=== PATIENT | female | born 1955 | race Caucasian/White ===

== ENCOUNTER 2017-08-23 18:07 | Emergency (ER) | payer MEDICARE ==
[~2017-08-23] VITALS: Ht 162.6 cm; Wt 44.5 kg
[~2017-08-23 18:07] MED LIST: ACIDOPHILUS1 EAC1 PO; ASPIR 8181 MG PO; ASPIRIN81 MG PO; BACTRIM DS TAB1 EACH PO; CALCIUM600 MG PO; CARVEDILOL12.5 MG PO; CARVEDILOL3.125 MG PO; CELCEPT PO; CELEXA40 MG PO; CELLCEPT500 MG PO; CIPRO250 MG PO; CLINDAMYCIN HC150 MG PO; CLONIDINE HCL0.1 MG PO; CYANOCOBAL1000 MCG/M IM; FERROUS SULFAT325 MG PO; FLAGYL500 MG PO; FOLIC ACID1 MG PO; FOSAMAX70 MG PO; HEPARIN SO5000 UNIT/ SC; HUMALOG100 UNIT/3 SQ; HUMALOG100 UNITS/ SC; HYDRALAZINE HCL10 MG PO; IRON325 M1 PO; LANTUS 3ML100 UNITS/ SQ; LANTUS100 UNIT/1 SC; LEVEMIR100 UNIT/1 SC; LEXAPRO10 MG PO; LIPITOR20 MG PO; LIPITOR80 MG PO; MAGNESIUM OXID400 MG PO; MYCOPHENOLATE250 MG PO; NEXIUM40 MG PO; NIASPAN750 MG PO; NORVASC5 MG PO; NOVOLIN 70100 UNITS/ SC; NOVOLOG100 UNIT/1; OMEGA 3 1,0001 EACH PO; PANTOPRAZOLE SO40 MG PO; PREDNISONE2.5 MG PO; PROGRAF0.5 MG PO; PROGRAF1 MG PO; TACROLIMUS1 MG PO; TRAMADOL-ACETAMI1 EA PO; TYLENOL325 MG PO; VITAMIN D1000 UNI1 PO; VITAMIN D250000 UNIT PO; VITAMIN E200 UNI2 PO; VITAMIN E400 UNI1 PO; WARFARIN SODIUM3 MG PO; ZOFRAN ODT4 MG PO; ZYRTEC10 MG PO
[2017-08-23 18:55] LABS: BASOPHILS # (AUTO) 0.1 (0.0-0.1); BASOPHILS % 0.8 % (0.0-1.0); EOSINOPHILS # (AUTO) 0.1 (0.0-0.4); EOSINOPHILS % 1.4 % (0.0-6.0); HEMATOCRIT 29.1 % (34.2-44.1); LYMPHOCYTES % 28.7 % (18.0-39.1); MEAN CORPUSCULAR HEMOGLOBIN 30.8 pg (28-32); MEAN CORPUSCULAR HGB CONC 30.9 g/dL (31-35); MEAN CORPUSCULAR VOLUME 99.7 fL (81-99); MONOCYTES # (AUTO) 0.5 (0.2-0.8); MONOCYTES % 7.6 % (4.4-11.3); NEUTROPHILS # (AUTO) 4.3 (2.1-6.9); NEUTROPHILS % 60.8 % (38.7-80.0); PLATELET COUNT 297 x10e3/uL (140-360); RED BLOOD COUNT 2.92 x10e6/uL (3.6-5.1); RED CELL DISTRIBUTION WIDTH 14.8 % (11.7-14.4)
[2017-08-23 19:02] LABS: INR 0.87; PROTHROMBIN TIME 12.3 seconds (11.9-14.5)
[2017-08-23 19:03] LABS: PARTIAL THROMBOPLASTIN TIME 28.6 seconds (23.8-35.5)
[2017-08-23 19:13] LABS: ALBUMIN 3.2 g/dL (3.5-5.0); ALBUMIN/GLOBULIN RATIO 0.9 (0.8-2.0); ANION GAP 14.4 mmol/L (8-16); CALCIUM 9.1 mg/dL (8.4-10.2); CREATININE, SERUM 1.88 mg/dL (0.57-1.11); POTASSIUM 4.4 mmol/L (3.5-5.1)
[2017-08-23 19:21] LABS: CREATINE KINASE MB 1.1 ng/mL (0.00-5.00)
--- NOTE | 2017-08-23 19:51 | Diagnostic Imaging Report ---
EXAMINATION: CHEST SINGLE (PORTABLE) INDICATION: Blood pressure. COMPARISON: 01/10/2017. FINDINGS: TUBES and LINES: None. LUNGS: Lungs are hypoinflated. Mild diffuse coarsening of the pulmonary interstitium. In the left lung base suggestive of subsegmental atelectasis. There is no evidence of pneumonia or pulmonary edema. PLEURA: Mild blunting of the bilateral lateral costophrenic sulcus may represent pleural scarring versus trace pleural effusions. No pneumothorax. HEART AND MEDIASTINUM: The cardiomediastinal silhouette is remarkable for postsurgical changes related to CABG again observed. BONES AND SOFT TISSUES: No acute osseous lesion. UPPER ABDOMEN: No free air under the diaphragm. There are cholecystectomy clips. IMPRESSION: Left basilar subsegmental atelectasis. Signed by: Dr. Mary Paniagua M.D. on 08/23/2017 7:48 PM
--- NOTE | 2017-08-23 19:58 | Diagnostic Imaging Report ---
Examination: CT head without contrast Clinical Indication: Headaches; hypertension. Technique: Transaxial noncontrast images from the skull base through the vertex were obtained. Sagittal and coronal reformatted images were done. Comparison: Head CT dated 10/11/2016. Findings: Scalp: No new acute abnormalities. Interval resolution of acute right parietal scalp laceration and hematoma. Bones: Intact. No fractures. No blastic or lytic lesions. Brain sulci: Mild volume loss for patient's age. Ventricles: No hydrocephalus. Extra-axial space: No abnormalities. Parenchyma: There are mild confluent areas of low-attenuation within subcortical and periventricular white matter, nonspecific, but could represent microvascular ischemic disease. Again demonstrated is a chronic lacunar infarct of the bilateral caudate nuclei and bilateral cerebellar hemispheres. No masses, hemorrhage, or acute cortical based vascular insults. Suprasellar region: No abnormalities. Craniocervical junction: The foramen magnum is patent. No Chiari one malformation. Incidental findings: Atherosclerotic calcification of the cavernous and supraclinoid internal carotid and V4 segments of the bilateral vertebral arteries. Impression: 1. No new acute intracranial abnormality. 2. Interval resolution of acute right parietal scalp laceration and hematoma when compared to prior head CT dated 10/11/2016. 3. Unchanged mild chronic microvascular ischemic change and volume loss. 4. Unchanged chronic lacunar infarcts, as above. Signed by: Dr. Galina King M.D. on 08/23/2017 7:54 PM
[2017-08-23] MEDS ORDERED: LABETALOL HCL 5 MG/ML 20ML VIAL IV STA (20:31)
[2017-08-23] MEDS ORDERED: KETOROLAC TROMETHAMINE 30 MG/ML VIAL IV STA (20:39)
[2017-08-23 22:50] VITALS: BP 148/99
== END 2017-08-23 23:11 | disposition home or self-care (01) ==
LOC: ER 18:07
DX: G44.209 Tension-type headache, unspecified, not intractable (principal); I13.2 Hypertensive heart and chronic kidney disease with heart failure and with stage 5 chronic kidney disease, or end stage renal disease; I50.9 Heart failure, unspecified; N18.6 End stage renal disease; Z99.2 Dependence on renal dialysis; Z94.1 Heart transplant status
CPT/HCPCS: 36415; 70450; 71045; 80053; 82550; 82553; 84484; 85025; 85610; 85730; 93005; 99284; J1885; J3490

== ENCOUNTER 2017-09-13 15:11 | Emergency (ER) | payer BC, MEDICARE ==
[~2017-09-13] VITALS: Ht 162.6 cm; Wt 44.5 kg
--- OUTSIDE RECORDS SUMMARY | 2017-09-13 15:15 | XMS REPORT | Clinical Summary ---
Author Author DANIEL Valor [facility] [employer] [facility] Organization [facility] Address Unknown Phone Unavailable Care Team Providers Care Rider Ticket Worker Name Role Phone PCP Unavailable Allergies Active Allergy Reactions Severity Noted Date Comments Codeine Nausea And Vomiting, High 07/27/2012 unknown Shortness Of Breath Furosemide Other (See Comments) High 10/20/2012 Fluid in ear unknown Penicillins Rash Low 07/28/2012 Sirolimus Other (See Comments) Low 07/28/2012 Muscle aches Current Medications Prescription Sig. Disp. Refills Start End Date Status Date folic acid (FOLVITE) 1 MG Take 1 mg by mouth daily. Active tablet aspirin 81 MG EC tablet Take 81 mg by mouth Active nightly. ferrous sulfate 325 (65 Take 325 mg by mouth Active FE) MG tablet daily with breakfast. magnesium oxide (MAG-OX) Take 400 mg by mouth 2 Active 400 mg tablet (two) times daily. traMADol-acetaminophen Take 1 tablet by mouth Active (ULTRACET) 37.5-325 mg nightly. per tablet citalopram (CELEXA) 40 MG Take 40 mg by mouth Active tablet daily. vitamin E 800 UNIT Take 800 Units by mouth Active capsule daily. atorvastatin (LIPITOR) 80 Take 80 mg by mouth Active MG tablet daily. cetirizine (ZYRTEC) 10 MG Take 10 mg by mouth Active tablet daily. mycophenolate (CELLCEPT) Take 1 tablet (500 mg 60 tablet 11 12/04/19 12/04/19 Active 500 mg tablet total) by mouth 2 (two) 17 18 times daily. epoetin tomasa Inject 2 mLs (6,000 Units 1 mL 0 01/22/20 Active (EPOGEN,PROCRIT) 3,000 total) subcutaneously 3 17 unit/mL (three) times a week at injectionIndications: bedtime. Anemia, esrd tacrolimus (PROGRAF) 0.5 Take 1 capsule (0.5 mg 0 01/22/20 01/22/20 Active MG capsule total) by mouth daily. 17 18 ergocalciferol Take 1 capsule (50,000 4 capsule 0 01/22/20 01/22/20 Active (ERGOCALCIFEROL) 50,000 Units total) by mouth 17 18 unit capsule every 7 days. cloNIDine HCl (CATAPRES) Take 0.1 mg by mouth 2 Active 0.1 MG tablet (two) times daily. omeprazole (PRILOSEC) 40 Take 40 mg by mouth Active MG capsule daily. carvedilol (COREG) 12.5 TAKE ONE TABLET BY MOUTH 60 tablet Active MG tablet TWICE A DAY WITH 17 BREAKFAST AND DINNER calcium carbonate-vitamin Take 2 tablets by mouth Active D3 (CALCIUM-VITAMIN D) daily. 500 mg(1,250mg) -200 unit per tablet esomeprazole (NEXIUM) 40 Take 40 mg by mouth every 05/19/20 Discontin MG capsule morning before breakfast. 17 ued ergocalciferol (VITAMIN Take 50,000 Units by 01/22/20 Discontin D2) 50,000 unit capsule mouth as directed. Twice 17 ued monthly alendronate (FOSAMAX) 70 Take 70 mg by mouth every 10/26/19 Discontin MG tablet 7 days. Take in the 17 ued morning with a full glass of water, on an empty stomach, and do not take anything else by mouth or lie down for the next 30 min. cyanocobalamin (VITAMIN Inject 1,000 mcg 01/22/20 Discontin B-12) 1,000 mcg/mL intramuscularly every 14 17 ued injection (fourteen) days. calcium citrate 1,000 mg Take 1 tablet by mouth 10/26/19 Discontin Tab daily. 17 ued insulin lispro (HUMALOG) Inject subcutaneously 3 01/22/20 Discontin 100 unit/mL injection (three) times daily 17 ued before meals. Per sliding scale mycophenolate (CELLCEPT) Take 1 tablet (500 mg 60 tablet 11 11/05/19 11/05/19 500 mg tabletIndications: total) by mouth 2 (two) 16 17 Status post heart times daily. transplantation (HCC), Transplant follow-up insulin detemir (LEVEMIR) Inject 9 Units 10/26/19 Discontin 100 unit/mL injection subcutaneously nightly. 17 ued amLODIPine (NORVASC) 5 MG Take 5 mg by mouth daily. 10/26/19 Discontin tablet 17 ued carvedilol (COREG) 12.5 Take 2 tablets (25 mg 60 tablet 5 06/30/20 01/22/20 Discontin MG tablet total) by mouth 2 (two) 16 17 ued times daily with breakfast and dinner. tacrolimus (PROGRAF) 0.5 Take 2 capsules (1 mg 120 capsule 6 06/30/20 12/04/19 Discontin MG capsule total) by mouth 2 (two) 16 17 ued times daily. senna-docusate (SENOKOT Take 1 tablet by mouth 2 60 tablet 0 06/30/20 05/19/20 Discontin S) 8.6-50 mg per tablet (two) times daily. 16 17 ued carvedilol (COREG) 12.5 TAKE ONE TABLET BY MOUTH 60 tablet 4 07/20/20 01/22/20 Discontin MG tablet TWICE A DAY WITH 16 17 ued BREAKFAST AND DINNER cloNIDine HCl (CATAPRES) Take 0.1 mg by mouth 2 01/22/20 Discontin 0.1 MG tablet (two) times daily. 17 ued insulin glargine (LANTUS) Inject subcutaneously 01/22/20 Discontin 100 unit/mL injection nightly Use as directed . 17 ued tacrolimus (PROGRAF) 0.5 Take 2 capsules (1 mg 120 capsule 11 01/22/20 Discontin MG capsule total) by mouth 2 (two) 17 17 ued times daily. aspirin 81 MG EC tablet Take 81 mg by mouth 09/24/19 01/22/20 Discontin daily. 11 17 ued pregabalin (LYRICA) 100 Take 100 mg by mouth 2 01/22/20 Discontin MG capsule (two) times daily. 17 ued atorvastatin (LIPITOR) 80 Take 80 mg by mouth 10/23/19 01/22/20 Discontin MG tablet daily. 14 17 ued carvedilol (COREG) 12.5 Take 25 mg by mouth 2 06/30/20 01/22/20 Discontin MG tablet (two) times daily. 16 17 ued citalopram (CELEXA) 40 MG Take 40 mg by mouth 09/24/19 01/22/20 Discontin tablet daily. 11 17 ued esomeprazole (NEXIUM) 40 Take 40 mg by mouth 01/22/20 Discontin MG capsule daily. 17 ued mycophenolate (CELLCEPT) Take 500 mg by mouth 2 09/24/19 01/22/20 Discontin 500 mg tablet (two) times daily. 11 17 ued tacrolimus (PROGRAF) 1 MG Take 1 mg by mouth as 09/24/19 01/22/20 Discontin capsule directed Take 2 capsules 11 17 ued by mouth each morning and 1 tablet by mouth each evening.. carvedilol (COREG) 25 MG Take 1 tablet (25 mg 0 01/22/20 05/19/20 Discontin tablet total) by mouth 2 (two) 17 17 ued times daily with breakfast and dinner. HYDROmorphone (DILAUDID) Inject 0.2 mLs (0.2 mg 1 mL 0 01/22/20 Discontin injection 1 mg/mL total) intravenously 17 17 ued every 15 (fifteen) minutes as needed. Max Daily Amount: 19.2 mg amLODIPine (NORVASC) 5 MG Take 1 tablet (5 mg 0 01/22/20 05/19/20 Discontin tablet total) by mouth daily. 17 17 ued tacrolimus (PROGRAF) 0.5 Take 1 capsule (0.5 mg 0 01/22/20 01/23/20 Discontin MG capsule total) by mouth every 17 17 ued evening. insulin lispro (HUMALOG) Inject 0-4 Units 10 mL 0 01/22/20 07/27/19 Discontin 100 unit/mL injection subcutaneously every 17 18 ued night as needed (High blood sugar). insulin lispro (HUMALOG) Inject 0-8 Units 10 mL 0 01/22/20 05/19/20 Discontin 100 unit/mL injection subcutaneously as needed 17 17 ued (High blood sugar). docusate sodium (COLACE) Take 1 capsule (100 mg 10 capsule 0 01/22/20 02/01/20 100 MG capsule total) by mouth 2 (two) 17 17 times daily for 10 days. tacrolimus (PROGRAF) 1 MG Take 1 capsule (1 mg 0 01/23/20 05/19/20 Discontin capsule total) by mouth every 17 17 ued evening. cephalexin (KEFLEX) 250 Take 1 capsule (250 mg 28 capsule 0 02/05/20 02/12/20 MG capsule total) by mouth 4 (four) 17 17 times daily for 7 days. insulin glargine (LANTUS) Inject subcutaneously 05/19/20 Discontin 100 unit/mL injection nightly Per sliding scale 17 ued . Lactobacillus Take 1 tablet by mouth 3 05/19/20 Discontin acidoph-L.bulgar (three) times daily. 17 ued (FLORANEX) 1 million cell Tab per tablet metroNIDAZOLE (FLAGYL) Take 500 mg by mouth 3 05/19/20 Discontin 500 MG tablet (three) times daily. 17 ued vancomycin (VANCOCIN) Inject 1 g intravenously 05/19/20 Discontin IVPB 1 g in dextrose 5% 3 (three) times a week. 17 ued (D5W) 200 mL darbepoetin Inject 60 mcg 05/19/20 Discontin tomasa-polysorbate subcutaneously once a 17 ued (ARANESP) 60 mcg/0.3 mL week. Syrg injection carvedilol (COREG) 25 MG Take 0.5 tablets (12.5 mg 05/19/20 07/27/19 Discontin tablet total) by mouth 2 (two) 17 18 ued times daily with breakfast and dinner. Active Problems Problem Noted Date Hepatitis C antibody test positive 08/24/2017 Last Assessment & Plan: Noted to be positive for anti-HCV from blood tests in 2005, and 2018. However HCV RNA was undetectable in 01/08. She is on HD since 01/08. It is possible that she has been exposed to Hepatitis C, and cleared the virus. AST/ALT normal, slightly elevated Alk Phos (207 on 05/10), but patient is asymptomatic, and no evidence of chronic liver disease. Platelet 223, and CT abdomen with contrast showed normal liver. We will repeat HCV RNA. We will check GGT, and US abdomen. If tests are normal, she would be cleared from liver point of view for renal transplant. Screening for endocrine/metabolic/immunity disorders 08/24/2017 Last Assessment & Plan: She needs full series of vaccination for Hepatitis B, in addition to age appropriate vaccinations (not liver virus vaccination due to immunosuppression). We will check antibody against Hepatitis A. Controlled type 2 diabetes mellitus with complication, without long-term 09/2017 current use of insulin (HCC) H/O stroke without residual deficits 07/27/2017 Anemia of renal disease 07/27/2017 Secondary hyperparathyroidism of renal origin (HCC) 07/27/2017 JOHN on CPAP 07/27/2017 Left arm swelling 02/14/2017 Overview: Attributed to PTFE AV fistula/graft in left arm. Hemodialysis access, AV graft ([facility]) 02/14/2017 Overview: PFTE graft by Dr Quinn 01/18/2017 Altered mental status, unspecified 01/14/2017 Chronic renal insufficiency 01/13/2017 Hyperlipidemia 01/13/2017 IDDM (insulin dependent diabetes mellitus) ([facility]) 01/13/2017 Macrocytic anemia 01/13/2017 Hypertensive urgency 01/11/2017 Hypertensive emergency 01/10/2017 DILIP (acute kidney injury) ([facility]) 01/10/2017 Chronic kidney disease, stage IV (severe) ([facility]) 06/28/2016 Uncontrolled type 2 diabetes mellitus with complication, with long-term 11/2015 current use of insulin ([facility]) Benign hypertension with chronic kidney disease, stage IV ([facility]) 06/28/2016 Normocytic anemia 06/28/2016 Dyslipidemia 06/28/2016 Ankle fracture 06/27/2016 Closed fracture of greater trochanter of right femur ([facility]) 12/18/2015 Overview: UPDATED BY ICD10 SNOMED/IMO UPDATES Fever, unknown origin 07/03/2013 Overview: Admitted 06/06 with fever. All cultures negative. Lumbar puncture negative. Subsequently treated by PCP for presumed sinus infection with IM Levaquin with improvement Headache 07/03/2013 Overview: Severe headache associated with fever 06/06. Lumbar puncture negative. MRI/ MRA negative. CT neck negative. Neurology evaluation - etiology not identified Chronic kidney disease (CKD) 07/03/2013 Edema 02/03/2013 Acute rejection of heart transplant ([facility]) 01/23/2013 Overview: 05/03 RV BX ISHLT II R and C4D+; Treated with plasmaphoresis, IVIG, Rituxand corticosteroid pulse. 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 Circumflex and RCA. GERD (gastroesophageal reflux disease) 01/18/2013 Overview: On Nexium. Osteoporosis 01/18/2013 Overview: On Fosamax. Immunosuppression ([facility]) 10/18/2012 Overview: Prograf, Cellcept, Prednisone. IDDM (insulin dependent diabetes mellitus) ([facility]) 07/28/2012 Depression 07/28/2012 Hyperlipidemia 07/28/2012 Hypertension 07/28/2012 Peripheral vascular disease (HCC) 07/28/2012 Overview: 01/18/12 Post left common femoral artery endarterectomy. JHON (obstructive sleep apnea) 07/28/2012 Anemia 07/28/2012 Status post heart transplantation (HCC) 07/27/2012 Overview: OHT: 03/28/2010. 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 DSE: Mild anteroseptal hypokinesis with Dobutamine infusion, but interpreted as "negative echocardiographic stress test" ICD9 DX Milieu Coordinator L ast Assessment & Plan: Relevant Hx: Course: Daily Update: Today's Plan: ESRD (end stage renal disease) (HCC) Last Assessment & Plan: On HD since 01/08. Likely related to prograf post-OHT. Being listed for renal transplant. Encounters Date Type Specialty Care Team Description 09/12/2017 Committee Transplant Ellen Robins Review 08/24/2017 Office Visit Hepatology Germaine Crowe MD Hepatitis C antibody test positive;Chronic kidney disease, stage IV (severe) (HCC);Uncontrolled type 2 diabetes mellitus with complication, with long-term current use of insulin (HCC);Benign hypertension with chronic kidney disease, stage IV (HCC);DILIP (acute kidney injury) (HCC);Screening for endocrine/metabolic/immun ity disorders;ESRD (end stage renal disease) (HCC) 08/15/2017 [facility] Lazarus Sauceda Status post heart Encounter MD Gray transplantation (HCC);Chronic kidney disease, stage IV (severe) (HCC);Uncontrolled type 2 diabetes mellitus with complication, with long-term current use of insulin (HCC);Benign hypertension with chronic kidney disease, stage IV (HCC);IDDM (insulin dependent diabetes mellitus) (HCC);ESRD (end stage renal disease) (HCC);Hypertension secondary to other renal disorders 08/15/2017 [facility] Radiology Lazarus Sauceda Status post heart Encounter MD Gray transplantation (HCC);Chronic kidney disease, stage IV (severe) (HCC);Uncontrolled type 2 diabetes mellitus with complication, with long-term current use of insulin (HCC);Benign hypertension with chronic kidney disease, stage IV (HCC);IDDM (insulin dependent diabetes mellitus) (HCC);ESRD (end stage renal disease) (HCC);Hypertension secondary to other renal disorders 08/15/2017 Orders Only Lazarus Pepe Status post heart MD Gray transplantation ([facility]);Chronic kidney disease, stage IV (severe) ([facility]);Uncontrolled type 2 diabetes mellitus with complication, with long-term current use of insulin (HCC);Benign hypertension with chronic kidney disease, stage IV (HCC);IDDM (insulin dependent diabetes mellitus) (HCC);ESRD (end stage renal disease) (HCC);Hypertension secondary to other renal disorders 08/12/2017 Outside Orders Lazarus Sauceda MD 08/04/2017 Telephone Transplant Ellen Robins Appointment 08/02/2017 Telephone Transplant Ellen Robins Appointment 07/27/2017 Evaluation Transplant Lazarus Sauceda Pre-transplant evaluation MD Gray for end stage renal disease (Primary Dx);ESRD (end stage renal disease) ([facility]);Status post heart transplantation ([facility]);Controlled type 2 diabetes mellitus with complication, without long-term current use of insulin ([facility]);Essential hypertension;H/O stroke without residual deficits;Anemia of renal disease;Secondary hyperparathyroidism of renal origin ([facility]);JOHN on CPAP;Immunosuppression ([facility]) 07/27/2017 Evaluation Transplant Lazarus Sauceda MD 07/27/2017 Evaluation Transplant Lazarus Sauceda MD 07/27/2017 Orders Only Lazarus Pepe Status post heart MD Gray transplantation ([facility]);Chronic kidney disease, stage IV (severe) ([facility]);Uncontrolled type 2 diabetes mellitus with complication, with long-term current use of insulin ([facility]);Benign hypertension with chronic kidney disease, stage IV ([facility]);IDDM (insulin dependent diabetes mellitus) ([facility]);ESRD (end stage renal disease) ([facility]);Hypertension secondary to other renal disorders 07/27/2017 Office Visit Transplant Lazarus Sauceda Status post heart MD Gray transplantation ([facility]) Juan Umana RN (Primary Dx);Chronic kidney disease, stage IV (severe) ([facility]);Uncontrolled type 2 diabetes mellitus with complication, with long-term current use of insulin ([facility]);Benign hypertension with chronic kidney disease, stage IV (HCC);IDDM (insulin dependent diabetes mellitus) ([facility]);ESRD (end stage renal disease) (HCC);Hypertension secondary to other renal disorders 06/20/2017 Telephone Transplant Jimenez Hugh Kidney Transplant Pre-evaluation 06/20/2017 Abstract Transplant Jimenez, Hugh 06/20/2017 Abstract Transplant Jimenez, Hugh 06/15/2017 Abstract Transplant Jimenez, Hugh 06/13/2017 Abstract Transplant Jimenez, Hugh 06/06/2017 Refill Transplant Vianey Mirza, YULIANA 05/20/2017 Telephone Transplant Breana Day RN Heart Transplant Follow-up 05/19/2017 Follow-Up Transplant Kristine Brown, Weight loss ( Primary MD Dx);Status post heart transplantation (HCC);Transplant follow-up 03/23/2017 Telephone Transplant Ladonna Hirsch RN Follow-up 03/21/2017 Telephone Transplant Yanira Moraes NP cancellation due to Kash 02/25/2017 Telephone Transplant Ladonna Hirsch, RN Follow-up 02/17/2017 Office Visit Cardiology Ailyn Quinn Chronic kidney disease, stage IV (severe) (HCC) (Primary Dx) 02/14/2017 [facility] Cardiology System, Provider Not In Transplant Encounter Kristine Brown, follow-up;Status post MD heart transplantation (HCC) 02/14/2017 Follow-Up Transplant Nan Novak MD Status post heart transplantation ([facility]) (Primary Dx);Transplant follow-up;Dyslipidemia;ID DM (insulin dependent diabetes mellitus) ([facility]);Left arm swelling 02/14/2017 Orders Only Cardiology Kristine Brown, Transplant MD follow-up;Status post heart transplantation ([facility]);Dyslipidemia;IDDM (insulin dependent diabetes mellitus) ([facility]) 02/14/2017 Telephone Transplant Ladonna Hirsch, RN Follow-up 02/14/2017 Orders Only Transplant Ladonna Hirsch RN Status post heart transplantation (HCC) (Primary Dx);Transplant follow-up 02/11/2017 Orders Only Transplant Hayder Villarreal, Status post heart RN transplantation ([facility]) (Primary Dx);Aftercare following organ transplant 02/07/2017 Abstract Transplant Stephen Emmanuel 02/07/2017 Telephone Transplant Stephen Emmanuel Kidney Transplant Pre-evaluation 02/04/2017 Office Visit Cardiology Ailyn Quinn, Chronic kidney diseaseMD stage IV (severe) (HCC) (Primary Dx) 01/18/2017 Anesthesia Justice Brewer, Event AA 01/18/2017 Procedure Pass 01/18/2017 Surgery Ailyn Quinn, CREATION,A-V FISTULA 01/14/2017 Procedure Pass 01/12/2017 Abstract Transplant Ayah Lepe 01/10/2017 Hospital Transplant Jemal Chavez MD DILIP (acute kidney injury) - Encounter Damon Ty, (HCC) (Primary 01/22/2017 MD Dx);Hypertensive Geraldo Knight MD urgency;Heart transplant, orthotopic, status (HCC);Immunosuppression (HCC);[id number] kidney injury (HCC);Benign hypertension with chronic kidney disease, stage IV (HCC);Dyslipidemia;Hypert ensive emergency;Uncontrolled type 2 diabetes mellitus with complication, with long-term current use of insulin (HCC);Altered mental status, unspecified;Transient alteration of awareness 12/13/2016 Telephone Transplant Ayah Lepe Appointment 12/10/2016 Orders Only Transplant Ladonna Hirsch RN Status post heart transplantation (HCC) (Primary Dx);Transplant follow-up 12/03/2016 Orders Only Transplant Ladonna Hirsch RN 11/30/2016 [facility] Carlie Bonilla MD Encounter 11/30/2016 Anesthesia Walker Mansfield MD Event 11/30/2016 Surgery Carlie Bonilla MD EXTRACTION,CATARACT W/IOL 10/26/2016 [facility] Carlie Bonilla MD Encounter 10/26/2016 Anesthesia Gretchen Elizabeth Event MD Hayder 10/26/2016 [facility] Carlie Bonilla MD EXTRACTION,CATARACT W/IOL 10/18/2016 [facility] Cardiology System, Provider Not In Canceled ( Patient) Encounter Kristine Brown MD after 09/12/2016 Immunizations Name Dates Previously Given Next Due Influenza High Dose 06/30/2016 Preservative Free IM Influenza TIV (IM) 04/24/2017 Family History Medical History Relation Name Comments ALS Daughter Heart attack Father Heart attack Mother Relation Name Status Comments Daughter Father Mother Social History Tobacco Use Types Packs/Day Years Used Date Former Smoker Quit: 11/11/1999 Smokeless Tobacco: Never Used Alcohol Use Drinks/Week oz/Week Comments No Sex Assigned at Date Recorded Not on file Last Filed Vital Signs Vital Sign Reading Time Taken Blood Pressure 123/77 08/24/2017 11:11 AM INTERLOCKING AND SIGNAL MECHANIC Pulse 88 08/24/2017 11:11 AM INTERLOCKING AND SIGNAL MECHANIC Temperature 36.4 C (97.6 F) 08/24/2017 11:11 AM INTERLOCKING AND SIGNAL MECHANIC Respiratory Rate 18 08/24/2017 11:11 AM INTERLOCKING AND SIGNAL MECHANIC Oxygen Saturation 96% 08/24/2017 11:11 AM INTERLOCKING AND SIGNAL MECHANIC Inhaled Oxygen - - Concentration Weight 44 kg (97 lb) 08/24/2017 11:11 AM INTERLOCKING AND SIGNAL MECHANIC Height 157.5 cm (5' 2") 08/24/2017 11:11 AM INTERLOCKING AND SIGNAL MECHANIC Body Mass Index 17.74 08/24/2017 11:11 AM INTERLOCKING AND SIGNAL MECHANIC Plan of Treatment Date Type Specialty Care Team Description 10/25/2017 Follow-Up Transplant Kristine Brown MD [address] [facility] [address] [place] [address] [phone] 11/23/2017 Office Visit Hepatology Germaine Crowe MD [address] [facility] [address] [place] [address] [phone] Health Maintenance Due Date Last Done Comments INFLUENZA VACCINE 04/24/2017 06/30/2016 Implants Implanted Type Area Rubber Goods Supervisor Device Expiration Model / Identifier Date Serial / Lot Grft Vasc Acuseal [id number] Graft/Patc GORE & 09/06/2019 [id number] - [id number] ASSC:MED PRDT / Implanted: Qty: 1 on 01/18/2017 by [id number] Ailyn Quinn MD 05 / N/A Iol Tecnis [id number] 22.0 [employer] Right: [employer] 2020 [id number] [id number] - [id number] ogy Lens / Implanted: Qty: 1 on 10/26/2016 by [id number] Carlie Bonilla MD / Iol Tecnis [id number] 21.5 [employer] Left: Eye [employer] 2020 [id number] Ilp17-09.5 - [id number] ogy / Implanted: Qty: 1 on 11/30/2016 by [id number] Carlie Bonilla MD / Procedures Procedure Name Priority Date/Time Associated Diagnosis Comments CREATION,A-V FISTULA 01/18/2017 ESRD 11:51 AM CDT EXTRACTION,CATARACT W/IOL 11/30/2016 H25.812-CATARACT, LEFT 7:30 AM CDT EYE Special Needs (DIABETIC, HEART TRANSPLANT ) (STANDARD LENS) EXTRACTION,CATARACT W/IOL 10/26/2016 H25.811- RIGHT EYE 8:18 AM CDT CATARACT Special Needs (DIABETIC) (STANDARD LENS) after 09/12/2016 Results * Hepatitis A Antibody, IgG ([facility] Only) (08/24/2017 12:44 PM) Component Value Ref Range Hep A IgG Reactive (A) Nonreactive Specimen Performing [place] [address] * CBC with platelet count + automated diff (08/24/2017 12:44 PM) Only the most recent of 17 results within the time period is included. Component Value Ref Range WBC 5.8 3.5 - 10.5 K/ L RBC 3.07 (L) 3.93 - 5.22 M/ L Hemoglobin 9.3 (L) 11.2 - 15.7 GM/DL Hematocrit 31.7 (L) 34.1 - 44.9 % MCV 103.3 (H) 79.4 - 94.8 fL MCH 30.3 25.6 - 32.2 pg MCHC 29.3 (L) 32.2 - 35.5 GM/DL RDW 15.2 (H) 11.7 - 14.4 % Platelets 293 150 - 450 K/CU MM MPV 8.7 (L) 9.4 - 12.3 fL nRBC 0 0 - 0 /100 WBC % Neutros 47 % % Lymphs 42 % % Monos 9 % % Eos 2 % % Baso 1 % # Neutros 2.72 1.56 - 6.13 K/ L # Lymphs 2.42 1.18 - 3.74 K/ L # Monos 0.53 (H) 0.24 - 0.36 K/ L # Eos 0.10 0.04 - 0.36 K/ L # Baso 0.05 0.01 - 0.08 K/ L Immature 0 0 - 1 % Granulocytes-Relative Specimen [place] [address] * Alpha fetoprotein (AFP), tumor marker (08/24/2017 12:44 PM) Component Value Ref Range Alpha-Fetoprotein 2.0 <10.0 ng/mL Specimen [place] [address] * Hepatitis C genotype (08/24/2017 12:44 PM) Component Value Ref Range HCV Genotype, LiPA NOT DETECTED Comment: Unable to obtain genotype due to low or no viral load, mutations in viral genome at assay priming sites, or presence of inhibitory substance. Viral load of >=300 IU/mL is required for testing. REFERENCE RANGE: NOT DETECTED The method used in this test is RT-PCR and reverse hybridization (Line Probe) of the 5' UTR and core region of the HCV genome. This test was developed and its analytical performance characteristics have been determined by [facility]. It has not been cleared or approved by FDA. This assay has been validated pursuant to the CLIA regulations and is used for clinical purposes. http://education.[employer] /faq/HCVGenotyping Specimen Performing Laboratory Blood [facility] [address] [place] [address] Narrative Performing Lab *QDID [facility] [address] [place] [id number] Sandor Huber MD * Hepatitis C RNA, Quantitative (08/24/2017 12:44 PM) Only the most recent of 2 results within the time period is included. Component Value Ref Range HCV PCR, Quantitative HCV RNA not detected HCV RNA not detected Specimen [place] [address] Narrative This test uses a Real-Time Polymerase Chain Reaction (RT-PCR) methodology and was performed using SERA Ampliprep/SERA TaqMan HCV test kit version 2.0 ([employer] Reportable range for this assay is 15 - 100,000,000 IU per mL (1.18 - 8.00 Log IU/mL). This test uses a Real-Time Polymerase Chain Reaction (RT-PCR) methodology and was performed using SERA Ampliprep/SERA TaqMan HCV test kit version 2.0 ([employer]). Reportable range for this assay is 15 - 100,000,000 IU per mL (1.18 - 8.00 Log IU/mL). * Pro-time/INR (08/24/2017 12:44 PM) Only the most recent of 3 results within the time period is included. Component Value Ref Range Protime 13.5 11.7 - 14.7 seconds INR 1.0 <=5.9 Specimen [place] [address] Narrative RECOMMENDED COUMADIN/WARFARIN INR THERAPY RANGES STANDARD DOSE: 2.0 - 3.0 Includes: PROPHYLAXIS for venous thrombosis, systemic embolization; TREATMENT for venous thrombosis and/or pulmonary embolus. HIGH RISK: Target INR is 2.5-3.5 for patients with mechanical heart valves. * CBC with platelet count + automated diff (08/24/2017 12:44 PM) Only the most recent of 17 results within the time period is included. Specimen Performing Laboratory Blood Narrative The following orders were created for panel order CBC with platelet count + automated diff. Procedure Abnormality Status --------- - ------ CBC with platelet count ...[[id number]]AbnormalFinal result Please view results for these tests on the individual orders. * TSH (08/24/2017 12:44 PM) Component Value Ref Range TSH 2.90 0.35 - 4.94 uIU/mL Specimen Performing Laboratory Blood [address] [address] * Gamma Glutamyl Transferase (GGT) (08/24/2017 12:44 PM) Only the most recent of 2 results within the time period is included. Component Value Ref Range GGT 17 9 - 64 U/L Specimen Performing Laboratory Blood [address] [address] * Hepatic function panel (08/24/2017 12:44 PM) Only the most recent of 7 results within the time period is included. Component Value Ref Range Protein, Total 7.0 6.0 - 8.3 gm/dL Albumin 3.6 3.5 - 5.0 g/dL Total Bilirubin 0.6 0.2 - 1.2 mg/dL Bilirubin, Direct 0.2 0.1 - 0.5 mg/dL Alkaline Phosphatase 138 40 - 150 U/L AST 22 5 - 34 U/L ALT 15 6 - 55 U/L Specimen [place] [address] * Basic Metabolic Panel (08/24/2017 12:44 PM) Only the most recent of 16 results within the time period is included. Component Value Ref Range Sodium 135 (L) 136 - 145 meq/L Potassium 5.1 3.5 - 5.1 meq/L Chloride 97 (L) 98 - 107 meq/L CO2 29 22 - 29 meq/L BUN 27 (H) 7 - 21 mg/dL Creatinine 3.10 (H) 0.57 - 1.25 mg/dL Glucose 156 (H) 70 - 105 mg/dL Calcium 9.3 8.4 - 10.2 mg/dL EGFR 15Comment: ESTIMATED GFR IS NOT ACCURATE mL/min/1.73 sq m CREATININE CLEARANCE IN PREDICTING GLOMERULAR FILTRATION RATE. ESTIMATED GFR IS NOT APPLICABLE FOR DIALYSIS PATIENTS. Specimen [place] [address] * TRANSFUSION SERVICE REPORT - SCAN (08/16/2017 5:43 PM) Only the most recent of 2 results within the time period is included. * CT/CTA abdomen & pelvis (08/15/2017 9:18 AM) Specimen Performing Laboratory [facility] Narrative Addendum Begins REPORT STATUS:A Addendum: I agree with the previously described non vascular findings. Signed: Milka Reid MD Report Verified Date/Time:08/15/2017 15:14:22 Reading Location: [place] [address] Angio Body Reading Room Addendum Ends FINAL REPORT CT angiography of the abdominal aorta and pelvic arteries, 15 August 2017 INDICATION: This is a 62 year old female with end-stage renal disease presents for pretransplant assessment.This study is performed in an attempt to avoid an invasive procedure. TECHNIQUE: Spiral acquisition before and during intravenous contrast administration using a GE multidetector CT scanner. Images were obtained before and during the dynamic passage of intravenous contrast material.Multi-planar 3-D volume-rendering reconstruction was performed using an independent workstation interactively by the interpreting physician as well as the 3-D specialist for optimal visualisation of the abdominal aorta, pelvic arteries, and its proximal branches. Please refer to the contrast sheet scanned in the RIS system for the amount and route of contrast given. This exam was performed according to our departmental dose-optimisation programme, which includes automated exposure control, adjustment of the mA and/or kV according to patient size and/or use of iterative reconstruction technique. Dose modulation, iterative reconstruction, and/or weight based adjustment of the mA/kV was utilized to reduce the radiation dose to as low as reasonably achievable. FINDINGS: VASCULAR: The abdominal aorta is normal in course, calibre and contour. There is calcific atherosclerosis identified in the abdominal aorta with no ectasia or aneurysmal dilation identified.There is no evidence of acute aortic pathology, specifically, there is no dissection, intramural hematoma, or contained rupture. Quantitative dimensions of the abdominal aorta are as follows: 2.0 cm at the mesenteric segment; 1.7 cm at the renal segment,; and 1.5 cm at the aortic bifurcation. The common iliac, external iliac, common femoral, and the visualized superficial femoral arteries, bilaterally, are widely patent; there is scattered calcific atherosclerosis along the pelvic arteries especially in the common iliac artery though no obstructive lesion is identified. Vamp Presser dimensions of the left and the right external iliac arteries are 5 and 5 mm, respectively. Note, surgical clips are seen in the left common femoral level indicating right surgery at this level. Correlate with appropriate procedure history. Similarly, the associated pelvic veins are patent with no venous thrombosis identified.Vamp Presser dimensions of the left and the right external iliac veins are 12 and 10 mm, respectively. The [place] left and right renal arteries are patent though calcific atherosclerosis is seen, consistent with end-stage renal disease. The coeliac axis, SMA, TOI only have minimal eccentric nonobstructive calcification present. NON-VASCULAR:- In the lung bases, a 1 mm nodule is identified in the right lower lobe at image 1 and left basal pleural effusion is identified with associated atelectatic changes seen. Pulmonary vasculature could be mildly prominent. In the abdomen, the liver and spleen appears unremarkable. The liver edge is smooth. No abnormal enhancing structures identified. Patient is post cholecystectomy. The adrenal glands are unremarkable. The pancreas have no gross abnormality seen. No acute renal pathology is seen and no hydronephrosis or perirenal fluid collection is identified. The kidneys are small in size, consistent with end-stage renal disease status. Bowel is not well assessed by CT angiography as enteric contrast is not given. No obvious bowel dilation is identified. There is no significant retroperitoneal adenopathy.No free fluid or free air is identified. The bladder is not distended. The uterus is not identified. No abnormal adnexal masses seen though CT is not optimizing assessment of pelvic gynaecological structures. Injection granuloma is identified posteriorly, subcutaneously. No acute bony pathology is identified; degenerative changes is present. In addition, compression fracture is identified at L4 level, age-indeterminate. CONCLUSIONS: 1.The abdominal aorta is normal in course, calibre and contour. Calcific atherosclerosis is seen. There is no evidence of acute aortic pathology, specifically, there is no dissection, intramural hematoma, or contained rupture. Quantitative dimension of the abdominal aorta are as noted. The pelvic arteries and veins are widely patent with no arterial stenosis or venous thrombosis identified. Vamp Presser dimensions of the left and the right external iliac arteries and veins are as described above. Calcification is seen in the common iliac arteries, bilaterally, however, they are nonobstructive. 2.Widely patent mesenteric arteries. 3.Other findings as described above. 4.An addendum will be dictated regarding the non-vascular findings by the [employer] Analyst Radiologist. Signed: Monster Corral MD Report Verified Date/Time:08/15/2017 09:33:56 Reading Location: [place] [address] Cardiology MRI Procedure Note Interface, External Ris In - 08/15/2017 3:16 PM INTERLOCKING AND SIGNAL MECHANIC Addendum Begins REPORT STATUS:A Addendum: I agree with the previously described non vascular findings. Signed: Milka Reid MD Report Verified Date/Time: 08/15/2017 15:14:22 Reading Location: [facility] [address] Angio Body Reading Room Addendum Ends FINAL REPORT CT angiography of the abdominal aorta and pelvic arteries, 15 August 2017 INDICATION: This is a 62 year old female with end-stage renal disease presents for pretransplant assessment. This study is performed in an attempt to avoid an invasive procedure. TECHNIQUE: Spiral acquisition before and during intravenous contrast administration using a GE multidetector CT scanner. Images were obtained before and during the dynamic passage of intravenous contrast material. Multi-planar 3-D volume-rendering reconstruction was performed using an independent workstation interactively by the interpreting physician as well as the 3-D specialist for optimal visualisation of the abdominal aorta, pelvic arteries, and its proximal branches. Please refer to the contrast sheet scanned in the RIS system for the amount and route of contrast given. This exam was performed according to our departmental dose-optimisation programme, which includes automated exposure control, adjustment of the mA and/or kV according to patient size and/or use of iterative reconstruction technique. Dose modulation, iterative reconstruction, and/or weight based adjustment of the mA/kV was utilized to reduce the radiation dose to as low as reasonably achievable. FINDINGS: VASCULAR: The abdominal aorta is normal in course, calibre and contour. There is calcific atherosclerosis identified in the abdominal aorta with no ectasia or aneurysmal dilation identified. There is no evidence of acute aortic pathology, specifically, there is no dissection, intramural hematoma, or contained rupture. Quantitative dimensions of the abdominal aorta are as follows: 2.0 cm at the mesenteric segment; 1.7 cm at the renal segment,; and 1.5 cm at the aortic bifurcation. The common iliac, external iliac, common femoral, and the visualized superficial femoral arteries, bilaterally, are widely patent; there is scattered calcific atherosclerosis along the pelvic arteries especially in the common iliac artery though no obstructive lesion is identified. Vamp Presser dimensions of the left and the right external iliac arteries are 5 and 5 mm, respectively. Note, surgical clips are seen in the left common femoral level indicating right surgery at this level. Correlate with appropriate procedure history. Similarly, the associated pelvic veins are patent with no venous thrombosis identified. Vamp Presser dimensions of the left and the right external iliac veins are 12 and 10 mm, respectively. The [place] left and right renal arteries are patent though calcific atherosclerosis is seen, consistent with end-stage renal disease. The coeliac axis, SMA, TOI only have minimal eccentric nonobstructive calcification present. NON-VASCULAR:- In the lung bases, a 1 mm nodule is identified in the right lower lobe at image 1 and left basal pleural effusion is identified with associated atelectatic changes seen. Pulmonary vasculature could be mildly prominent. In the abdomen, the liver and spleen appears unremarkable. The liver edge is smooth. No abnormal enhancing structures identified. Patient is post cholecystectomy. The adrenal glands are unremarkable. The pancreas have no gross abnormality seen. No acute renal pathology is seen and no hydronephrosis or perirenal fluid collection is identified. The kidneys are small in size, consistent with end-stage renal disease status. Bowel is not well assessed by CT angiography as enteric contrast is not given. No obvious bowel dilation is identified. There is no significant retroperitoneal adenopathy. No free fluid or free air is identified. The bladder is not distended. The uterus is not identified. No abnormal adnexal masses seen though CT is not optimizing assessment of pelvic gynaecological structures. Injection granuloma is identified posteriorly, subcutaneously. No acute bony pathology is identified; degenerative changes is present. In addition, compression fracture is identified at L4 level, age-indeterminate. CONCLUSIONS: 1. The abdominal aorta is normal in course, calibre and contour. Calcific atherosclerosis is seen. There is no evidence of acute aortic pathology, specifically, there is no dissection, intramural hematoma, or contained rupture. Quantitative dimension of the abdominal aorta are as noted. The pelvic arteries and veins are widely patent with no arterial stenosis or venous thrombosis identified. Vamp Presser dimensions of the left and the right external iliac arteries and veins are as described above. Calcification is seen in the common iliac arteries, bilaterally, however, they are nonobstructive. 2. Widely patent mesenteric arteries. 3. Other findings as described above. 4. An addendum will be dictated regarding the non-vascular findings by the [employer] Analyst Radiologist. Signed: Monster Corral MD Report Verified Date/Time: 08/15/2017 09:33:56 Reading Location: [place] [address] Cardiology MRI * XR chest 2 views (08/15/2017 8:48 AM) Specimen Performing Laboratory [employer] RIS Narrative FINAL REPORT Chest, PA and lateral. History: Pretransplant evaluation. Comparison: 01/15/2017. Discussion: Mild prominence of cardiac silhouette. Mild interstitial edema. Trace pleural fluid present. The lungs are otherwise clear without evidence of focal consolidation.There are no acute osseous abnormalities. Status post median sternotomy. The soft tissues are unremarkable. IMPRESSION: Mild pulmonary edema. Signed: Gretchen Smart MD Report Verified Date/Time:08/15/2017 09:19:59 Reading Location: [address] Radiology Reading Room Procedure Note Interface, External Ris In - 08/15/2017 9:22 AM INTERLOCKING AND SIGNAL MECHANIC FINAL REPORT Chest, PA and lateral. History: Pretransplant evaluation. Comparison: 01/15/2017. Discussion: Mild prominence of cardiac silhouette. Mild interstitial edema. Trace pleural fluid present. The lungs are otherwise clear without evidence of focal consolidation. There are no acute osseous abnormalities. Status post median sternotomy. The soft tissues are unremarkable. IMPRESSION: Mild pulmonary edema. Signed: Gretchen Smart MD Report Verified Date/Time: 08/15/2017 09:19:59 Reading Location: [address] Radiology Reading Room * Blood typing, automated (08/15/2017 7:37 AM) Component Value Ref Range ABO/RH AUTOMATED (BEAKER) A POSITIVE Specimen [place] [address] * Urine Culture (07/27/2017 10:39 AM) Only the most recent of 2 results within the time period is included. Component Value Ref Range Result Result 50-59,000 col/mL Raoultella ornithinolytica (A) Specimen [place] [address] Narrative >100,000 col/ml skin jasbir Organism Antibiotic Method Susceptibility Raoultella Amikacin <=2: Susceptible ornithinolytica Raoultella Ampicillin + Sulbactam 8: Susceptible ornithinolytica Raoultella Aztreonam <=1: Susceptible ornithinolytica Raoultella Cefepime <=1: Susceptible ornithinolytica Raoultella Cefoxitin <=4: Susceptible ornithinolytica Raoultella Ceftazidime <=1: Susceptible ornithinolytica Raoultella Ceftriaxone <=1: Susceptible ornithinolytica Raoultella Ertapenem <=0.5: Susceptible ornithinolytica Raoultella Gentamicin <=1: Susceptible ornithinolytica Raoultella Levofloxacin <=0.12: Susceptible ornithinolytica Raoultella Meropenem <=0.25: Susceptible ornithinolytica Raoultella Nitrofurantoin 128: Resistant ornithinolytica Raoultella Piperacillin + Tazobactam <=4: Susceptible ornithinolytica Raoultella Tetracycline <=1: Susceptible ornithinolytica Raoultella Tobramycin <=1: Susceptible ornithinolytica Raoultella Trimethoprim + <=20: Susceptible ornithinolytica Sulfamethoxazole * T Spot TB (07/27/2017 10:33 AM) Component Value Ref Range T-Spot TB Negative Neg Ctrl Spot Count 0 Panel A Spot 1 Panel B Spot [address] >20 Scan Result Specimen Performing Laboratory Blood [facility] [address] [facility] [address] [place] [address] * HIV-1 Antigen with HIV-1/2 Antibody (07/27/2017 10:33 AM) Component Value Ref Range HIV-1 Antigen with HIV Nonreactive Nonreactive 1&2 Antibody Specimen [place] [address] * Hepatitis C Antibody (07/27/2017 10:33 AM) Component Value Ref Range Hepatitis C Ab Reactive (A) Nonreactive Specimen Performing Laboratory [address] [address] * Cytomegalovirus antibody, IgM (07/27/2017 10:33 AM) Component Value Ref Range CMV IgM Negative Specimen Performing Laboratory [address] [address] * Hepatitis B core antibody, IgM (07/27/2017 10:33 AM) Component Value Ref Range Hep B C IgM Nonreactive Nonreactive Specimen Performing Laboratory [address] [address] * EBV-VCA antibody, IgM (07/27/2017 10:33 AM) Component Value Ref Range EBV VCA IgM Negative Specimen Performing Laboratory [address] [address] * EBV-VCA antibody, IgG (07/27/2017 10:33 AM) Component Value Ref Range EBV VCA IgG Positive Specimen Performing Laboratory Blood [address] [address] * RPR (07/27/2017 10:33 AM) Component Value Ref Range RPR Nonreactive Nonreactive Specimen Performing Laboratory Blood [address] [address] * Hepatitis B surface antibody (07/27/2017 10:33 AM) Component Value Ref Range Hep B S Ab <8.0 <8.0 mIU/mL Specimen [place] [address] * Hepatitis B surface antigen (07/27/2017 10:33 AM) Component Value Ref Range hepatitis B Surface Ag Nonreactive Nonreactive Specimen [place] [address] * Cytomegalovirus antibody, IgG (07/27/2017 10:33 AM) Component Value Ref Range CMV IgG Positive Specimen [place] [address] * Direct AHG (WOJCIECH)/Direct Klever (07/27/2017 10:33 AM) Component Value Ref Range Direct AHG-IGG NEGATIVE Direct AHG-C3B, C3D NEGATVIE Specimen [place] [address] * Varicella Zoster Antibody, IgG (07/27/2017 10:33 AM) Component Value Ref Range Varicella IgG 2.5 Al Specimen [place] [address] Narrative VARICELLA ZOSTER RESULT INTERPRETATIONS: <=0.8 AlNonreactive:Presumed non-immune to VZV 0.9-1.0 AlEquivocal >=1.1 AlReactive:Presumed immune to VZV * Uric Acid (07/27/2017 10:33 AM) Component Value Ref Range Uric Acid 3.1 2.6 - 7.2 mg/dL Specimen [place] [address] * Phosphorus (07/27/2017 10:33 AM) Only the most recent of 14 results within the time period is included. Component Value Ref Range Phosphorus 2.8 2.3 - 4.7 mg/dL Specimen Performing Laboratory Blood [address] [address] * PTH, Intact (07/27/2017 10:33 AM) Only the most recent of 2 results within the time period is included. Component Value Ref Range PTH 482.6 (H) 8.5 - 72.5 pg/mL Specimen Performing Laboratory Blood [address] [address] * Lactate Dehydrogenase (LDH) (07/27/2017 10:33 AM) Component Value Ref Range LDH 298 (H) 125 - 220 U/L Specimen Performing Laboratory Blood [address] [address] * Lipid panel (07/27/2017 10:33 AM) Only the most recent of 3 results within the time period is included. Component Value Ref Range Triglycerides 91 mg/dL Cholesterol 136 mg/dL HDL 33 mg/dL LDL Calculated 85 mg/dL Specimen Performing Laboratory Blood [address] [address] Narrative Triglyceride Reference Range: Low Risk <150 [id number] High Risk 200-499 Very High Risk>=500 Cholesterol Reference Range: Low Risk <200 [id number] High Risk>240 HDL Cholesterol Reference Range: Low Risk >=60 High Risk <40 LDL Cholesterol Reference Range: Optimal<100 Near [id number] [id number] Very High >=190 * Comprehensive metabolic panel (07/27/2017 10:33 AM) Component Value Ref Range Protein, Total 6.7 6.0 - 8.3 gm/dL Albumin 3.7 3.5 - 5.0 g/dL Alkaline Phosphatase 159 (H) 40 - 150 U/L Total Bilirubin 0.6 0.2 - 1.2 mg/dL Sodium 137 136 - 145 meq/L Potassium 4.5 3.5 - 5.1 meq/L Chloride 98 98 - 107 meq/L CO2 30 (H) 22 - 29 meq/L BUN 18 7 - 21 mg/dL Creatinine 3.16 (H) 0.57 - 1.25 mg/dL Glucose 81 70 - 105 mg/dL Calcium 9.2 8.4 - 10.2 mg/dL AST 20 5 - 34 U/L ALT 13 6 - 55 U/L EGFR 15Comment: ESTIMATED GFR IS NOT ACCURATE mL/min/1.73 sq m CREATININE CLEARANCE IN PREDICTING GLOMERULAR FILTRATION RATE. ESTIMATED GFR IS NOT APPLICABLE FOR DIALYSIS PATIENTS. Specimen Performing Laboratory [address] [address] * Type and Screen, Automated (07/27/2017 10:32 AM) Only the most recent of 3 results within the time period is included. Component Value Ref Range ABO/RH AUTOMATED (BEAKER) A POSITIVE Ab Scrn NEGATIVE Specimen Performing Laboratory [address] [address] * PT/aPTT (07/27/2017 10:32 AM) Only the most recent of 2 results within the time period is included. Component Value Ref Range Protime 12.9 11.7 - 14.7 seconds INR 1.0 <=5.9 PTT 29.0 22.5 - 36.0 seconds Specimen Performing [address] [address] Narrative RECOMMENDED COUMADIN/WARFARIN INR THERAPY RANGES STANDARD DOSE: 2.0 - 3.0 Includes: PROPHYLAXIS for venous thrombosis, systemic embolization; TREATMENT for venous thrombosis and/or pulmonary embolus. HIGH RISK: Target INR is 2.5-3.5 for patients with mechanical heart valves. * Hemoglobin A1c (07/27/2017 10:32 AM) Only the most recent of 3 results within the time period is included. Component Value Ref Range Hemoglobin A1C 5.3 4.3 - 6.1 % Specimen Performing Laboratory [address] [address] * TSH/Free T4 If Indicated (05/19/2017 10:51 AM) Component Value Ref Range TSH 4.09 0.35 - 4.94 uIU/mL Specimen Performing Laboratory [address] [address] * Prealbumin (05/19/2017 10:51 AM) Component Value Ref Range Prealbumin 46 (H) 14 - 45 mg/dL Specimen Performing Laboratory [address] [address] * Manual Differential (05/19/2017 9:42 AM) Component Value Ref Range Total Counted Specimen Performing [place] [address] * Tacrolimus level (05/19/2017 9:42 AM) Only the most recent of 15 results within the time period is included. Component Value Ref Range Tacrolimus Lvl 5.1 (L) 10.0 - 20.0 ng/mL Specimen Performing [place] [address] * EKG-SCANNED (02/15/2017 1:40 PM) * Stress Echo With Tracing (02/14/2017 1:01 PM) Specimen Performing Laboratory [facility] Narrative Echocardiography Laboratory [address] [place] [address] Voice:[phone] Stress Echocardiogram Pat.Name:FUNMI MONTERROSO.ID:[id number] .Date: 02/14/2017 Refer.MD:KRISTINE BROWN Exam Time: 1:01:00 PMStudy Type:Stress Echo Height:64inWeight:106lb BSA: 1.49 m2 DOBAge:1955 ,61Y Sex: FEMALEBP: 136/68 HR:95 bpmSonogrphr: BRO Valentin Pat. Stat.:OutpatientCPT - 4: [id number], [id number] Reason for Study:Heart transplant follow-up History / Clinical:Anemia, Congestive Heart Failure, Coronary artery disease, Hyperlipidemia, Hypertension, Ischemic cardiomyopathy, Myocardial infarction, JOHN Procedures:STRESS ECHO, Definity contrast done SUMMARY: Overall Stress Interp: Normal Stress echo. No evidence of ischemia. Resting echocardographic study is normal with normal chamber sizes and wall motion throughout. Dobutamine infusion was carried out to a peak dose of 20 mcg/kg/min. No chest pain or ischemic EKG changes were found. Echocardiography was performed throughout the study.Wall motion was enhanced in all regions with no segmental abnormalities noted. In conclusion, the study strongly rules against clinically threatening coronary artery disease. These findings are consistent with low risk stress findings. FINDINGS: RESTING FINDINGS LV: Overall wall motion is normal. LV function is normal. EstimatedEF is 60%. All velasquez are normal STRESS FINDINGS LV: LV function is normal. Overall stress wall motion is normal. EstimatedEF is >60%. All velasquez are normal STRESS: Baseline Vital Signs:Intervention: Dobutamine ECG: NormalPeak Dose: 20 mcg/kg/ min HR:95 BP:136/68 Rhythm:Normal sinus rhythm Stress Test Results: Max HR:142 Contrast: Definity 2 ml Target HR: 135 % Target:105 % Max BP:215/116 Max RPP: [id number] Symptoms and Complications: Arrhythmias: None Terminated: Target reached Complications: None Overall Stress Interp: Normal Stress echo. No evidence of ischemia. Stress ECG Interp: No ischemic S-T changes occurred with stress WALL MOTION: RESTING WALL MOTION: All velasquez are normal Wall Index=1 STRESS WALL MOTION: All velasquez are normal Stress Wall Index=1 Signed 02/14/2017 03:44 PM Max Fabian M.D. Procedure Note Interface, External Ris In - 02/14/2017 3:44 PM CDT Echocardiography Laboratory [address] [place] [address] Voice: [phone] Stress Echocardiogram Pat.Name: FUNMI MONTERROSO Pat.ID: [id number] St.Date: 02/14/2017 Refer.MD: KRISTINE BROWN Exam Time: 1:01:00 PM Study Type:Stress Echo Height: 64in Weight: 106lb BSA: 1.49 m2 Age: 8 1955,61Y Sex: FEMALE BP: 136/68 HR: 95 bpm Sonogrphr: BRO Valentin Pat. Stat.:Outpatient CPT - 4: C8929, [id number] Reason for Study:Heart transplant follow-up History / Clinical:Anemia, Congestive Heart Failure, Coronary artery disease, Hyperlipidemia, Hypertension, Ischemic cardiomyopathy, Myocardial infarction, JOHN Procedures:STRESS ECHO, Definity contrast done SUMMARY: Overall Stress Interp: Normal Stress echo. No evidence of ischemia. Resting echocardographic study is normal with normal chamber sizes and wall motion throughout. Dobutamine infusion was carried out to a peak dose of 20 mcg/kg/min. No chest pain or ischemic EKG changes were found. Echocardiography was performed throughout the study. Wall motion was enhanced in all regions with no segmental abnormalities noted. In conclusion, the study strongly rules against clinically threatening coronary artery disease. These findings are consistent with low risk stress findings. FINDINGS: RESTING FINDINGS LV: Overall wall motion is normal. LV function is normal. Estimated EF is 60%. All velasquez are normal STRESS FINDINGS LV: LV function is normal. Overall stress wall motion is normal. Estimated EF is >60%. All velasquez are normal STRESS: Baseline Vital Signs: Intervention: Dobutamine ECG: Normal Peak Dose: 20 mcg/kg/min HR: 95 BP: 136/68 Rhythm: Normal sinus rhythm Stress Test Results: Max HR: 142 Contrast: Definity 2 ml Target HR: 135 % Target: 105 % Max BP: 215/116 Max RPP: [id number] Symptoms and Complications: Arrhythmias: None Terminated: Target reached Complications: None Overall Stress Interp: Normal Stress echo. No evidence of ischemia. Stress ECG Interp: No ischemic S-T changes occurred with stress WALL MOTION: RESTING WALL MOTION: All velasquez are normal Wall Index=1 STRESS WALL MOTION: All velasquez are normal Stress Wall Index=1 Signed 02/14/2017 03:44 PM Max Fabian M.D. * 2D echo w/ doppler (cw/pw/color) (02/14/2017 12:31 PM) Only the most recent of 2 results within the time period is included. Component Value Ref Range Ejection Fraction LV EF 55.3 % (55-75) Index 37.1 %/m2 Specimen [facility]forming [facility] [address] [place] [address] Voice:[phone] Transthoracic Echocardiogram Pat.Name:FUNMI MONTERROSO.ID:[id number] .Date: 02/14/2017 Refer.MD:KRISTINE BROWN Exam Time: 12:31:00 PM Study Type:Echo Complete Height:64inWeight:106lb BSA: 1.49 m2 DOBAge:1955 ,61Y Sex: FEMALEBP: 136/68 HR:96 bpmSonogrphr: BRO Valentin CPT - 4: [id number] Reason for Study:Heart transplant follow-up History / Clinical:Anemia, Congestive Heart Failure, Coronary artery disease, Hyperlipidemia, Hypertension, Ischemic cardiomyopathy, Myocardial infarction, JOHN Procedures:2D ECHO W/ DOPPLER (CW/PW/COLOR) SUMMARY: Left ventricular chamber size (by vol index) is normal. Mild concentric LV hypertrophy. All of the LV segments contract normally. LVEF by quantitative assessment is normal (55-60%). LA morphology consistent with orthotopic heart transplantation. The right ventricular chamber size and systolic function are within normal limits. Unable to estimate peak systolic PA pressure; inadequate TR velocity signal. No pericardial effusion is visualized. In comparison with the prior exam on 01/11/2017 there are no significant changes. FINDINGS: Rhythm/BP: Regular sinus rhythm during the exam. LV: All of the LV segments contract normally. Left ventricular chambersize (by vol index) is normal. Mild concentric LV hypertrophy.LVEF by quantitative assessment is normal (55-60%).Normal diastolic function LA: LA morphology consistent with orthotopic heart transplantation. RV: The right ventricular chamber size and systolic function are withinnormal limits. RA: RA cavity size is consistent with orthotopic heart transplantation. AV: No evidence of aortic stenosis. Normal AoV structure. MV: A trace of mitral regurgitation. Normal MV structure. TV: TV structure is normal. Unable to estimate peak systolic PA pressure;inadequate TR velocity signal. PV: PV is not well visualized. AO: Aortic root size (Sinus of Valsalva diameter) is normal. Proximalascending aorta size is normal. Pericard: No pericardial effusion is visualized. Systemic Veins: The estimated RA pressure by IVC dynamics 0-5 mmHg. Comparison: In comparison with the prior exam on 01/11/2017 there are nosignificant changes. Quality:Technically good exam. MEASUREMENTS: 2D LV EF SinglePlane LV Ad 22.4 cm2(9.5-22.3)* LV CO 3.18 l/min LV As 13.2 cm2(4-11.6)* LV CI 2.13 l/min/m2 LVEDV 61.2 ml (59-136) Index41.1 ml/m2 LV SV 33.8 ml LVESV 27.4 mlHR 94 bpm LV Sng Plane LV Ad 20.8 cm2(9.5-22.3) LngAxd 6.25 cm LVEDV 56.2 ml (59-136)* Index37.7 ml/m2 Left Ventricle LV A% 41.2 %(36-64) Aorta Ao Asc2.74 cm (2.1-3.4) Parasternal Long Garrett Ao An2.4 cm (1.4-2.6) LV%fs 46.4 %(25-46)* Ao Rtd2.92 cmLVPWd 1.25 cm IVSd1.38 cm LA Ds 4.13 cm (2.3-3.8)* LVIDd 4.02 cm (4.3-5.1)* LV Wmn 1.32 cm LVIDs 2.16 cm (2-4) DOPPLER AV LVOT For Flow LVOTpkVel 74.7 cm/s (70-110) LVOT CO 6.65 l/min LVOT VTI15.7 cmLVOT CI 4.46 l/min/m2 LVOTpkPG2.23 mmHgLVOT Area 4.52 cm2 LVOTmnPG1.33 mmHgHR 94 bpm LVOT SV 70.8 ml Aortic Valve AV DI0.962 SVi (LVOT) 47.5 AV AV For Flow/RISHI AV pkVel85.3 cm/s (100-170)* AV AC/ET 0.293 AV mnVel64.8 cm/sAVpkAcRt 6553 cm/s2 AV pkPG 2.91 mmHgAV DeRt 340 cm/s2 AV mnPG 1.89 mmHgArea (VTI) 4.35 cm2(3-5) AV VTI16.3 cmArea (Quoc) 3.96 cm2(3-5) AV ET251 msec AV AC 74 msec (83-118)* MV E/A Ratio MV pkE 122 cm/s (60-130) MV E/A3.19 MV pkA38.1 cm/s DEFAULT DEFA Em 14.3 cm/sDEFA E/Em 8.5 Signed 02/14/2017 03:42 PM Max Fabian M.D. Procedure Note Interface, External Ris In - 02/14/2017 3:42 PM CDT Echocardiography Laboratory [address] [place] [address] Voice: [phone] Transthoracic Echocardiogram Pat.Name: FUNMI MONTERROSO Pat.ID: [id number] St.Date: 02/14/2017 Refer.MD: KRISTINE BROWN Exam Time: 12:31:00 PM Study Type:Echo Complete Height: 64in Weight: 106lb BSA: 1.49 m2 Age: 8 1955,61Y Sex: FEMALE BP: 136/68 HR: 96 bpm Sonogrphr: BRO Valentin CPT - 4: [id number] Reason for Study:Heart transplant follow-up History / Clinical:Anemia, Congestive Heart Failure, Coronary artery disease, Hyperlipidemia, Hypertension, Ischemic cardiomyopathy, Myocardial infarction, JOHN Procedures:2D ECHO W/ DOPPLER (CW/PW/COLOR) SUMMARY: Left ventricular chamber size (by vol index) is normal. Mild concentric LV hypertrophy. All of the LV segments contract normally. LVEF by quantitative assessment is normal (55-60%). LA morphology consistent with orthotopic heart transplantation. The right ventricular chamber size and systolic function are within normal limits. Unable to estimate peak systolic PA pressure; inadequate TR velocity signal. No pericardial effusion is visualized. In comparison with the prior exam on 01/11/2017 there are no significant changes. FINDINGS: Rhythm/BP: Regular sinus rhythm during the exam. LV: All of the LV segments contract normally. Left ventricular chamber size (by vol index) is normal. Mild concentric LV hypertrophy. LVEF by quantitative assessment is normal (55-60%). Normal diastolic function LA: LA morphology consistent with orthotopic heart transplantation. RV: The right ventricular chamber size and systolic function are within normal limits. RA: RA cavity size is consistent with orthotopic heart transplantation. AV: No evidence of aortic stenosis. Normal AoV structure. MV: A trace of mitral regurgitation. Normal MV structure. TV: TV structure is normal. Unable to estimate peak systolic PA pressure; inadequate TR velocity signal. PV: PV is not well visualized. AO: Aortic root size (Sinus of Valsalva diameter) is normal. Proximal ascending aorta size is normal. Pericard: No pericardial effusion is visualized. Systemic Veins: The estimated RA pressure by IVC dynamics 0-5 mmHg. Comparison: In comparison with the prior exam on 01/11/2017 there are no significant changes. Quality: Technically good exam. MEASUREMENTS: 2D LV EF SinglePlane LV Ad 22.4 cm2 (9.5-22.3)* LV CO 3.18 l/min LV As 13.2 cm2 (4-11.6)* LV CI 2.13 l/min/m2 LVEDV 61.2 ml (59-136) Index 41.1 ml/m2 LV SV 33.8 ml LVESV 27.4 ml HR 94 bpm LV Sng Plane LV Ad 20.8 cm2 (9.5-22.3) LngAxd 6.25 cm LVEDV 56.2 ml (59-136)* Index 37.7 ml/m2 Left Ventricle LV A% 41.2 % (36-64) Aorta Ao Asc 2.74 cm (2.1-3.4) Parasternal Long Garrett Ao An 2.4 cm (1.4-2.6) LV%fs 46.4 % (25-46)* Ao Rtd 2.92 cm LVPWd 1.25 cm IVSd 1.38 cm LA Ds 4.13 cm (2.3-3.8)* LVIDd 4.02 cm (4.3-5.1)* LV Wmn 1.32 cm LVIDs 2.16 cm (2-4) DOPPLER AV LVOT For Flow LVOTpkVel 74.7 cm/s (70-110) LVOT CO 6.65 l/min LVOT VTI 15.7 cm LVOT CI 4.46 l/min/m2 LVOTpkPG 2.23 mmHg LVOT Area 4.52 cm2 LVOTmnPG 1.33 mmHg HR 94 bpm LVOT SV 70.8 ml Aortic Valve AV DI 0.962 SVi (LVOT) 47.5 AV AV For Flow/RISHI AV pkVel 85.3 cm/s (100-170)* AV AC/ET 0.293 AV mnVel 64.8 cm/s AVpkAcRt 6553 cm/s2 AV pkPG 2.91 mmHg AV DeRt 340 cm/s2 AV mnPG 1.89 mmHg Area (VTI) 4.35 cm2 (3-5) AV VTI 16.3 cm Area (Quoc) 3.96 cm2 (3-5) AV ET 251 msec AV AC 74 msec (83-118)* MV E/A Ratio MV pkE 122 cm/s (60-130) MV E/A 3.19 MV pkA 38.1 cm/s DEFAULT DEFA Em 14.3 cm/s DEFA E/Em 8.5 Signed 02/14/2017 03:42 PM Max Fabian M.D. * RHYTHM STRIP - SCAN (01/26/2017 2:20 PM) * POC-Glucose meter (01/22/2017 12:31 PM) Only the most recent of 42 results within the time period is included. Component Value Ref Range POC-Glucose Meter 168 (H)Comment: TESTED AT [facility] [address] [place] [address] 70 - 110 mg /dL [facility] [address] Specimen Performing Laboratory Blood [address] [address] * Magnesium (01/22/2017 5:19 AM) Only the most recent of 14 results within the time period is included. Component Value Ref Range Magnesium 1.7 1.6 - 2.6 mg/dL Specimen [place] [address] * Prepare Leuko-Red RBC (01/21/2017 11:54 PM) Only the most recent of 2 results within the time period is included. Component Value Ref Range CROSSMATCH COMPATIBLE Unit ABO A Pos UNIT NUMBER [id number] Status TRANSFUSED Blood Bank Product RED BLOOD CELLS PRODUCT CODE [id number] Specimen Performing Laboratory Other [employer] [place] * Calcium, Ionized (01/21/2017 5:55 AM) Only the most recent of 5 results within the time period is included. Component Value Ref Range Calcium, Ion 0.92 (L) 1.12 - 1.27 mmol/L pH, Blood 7.55 Specimen Performing Laboratory Blood - Arm, Right [address] [address] * Hemodialysis (01/20/2017 11:11 AM) Only the most recent of 4 results within the time period is included. Beata Avila RN 01/20/2017 11:11 AM Lab Results Component Value Date WBC 7.7 01/20/2017 HGB 7.5 (L) 01/20/2017 HCT 24.4 (L) 01/20/2017 MCV 97.2 01/20/2017 PLT 158 01/20/2017 Lab Results Component Value Date GLUCOSE 105 01/20/2017 CALCIUM 8.3 (L) 01/20/2017 NA 137 01/20/2017 K 4.3 01/20/2017 CO2 26 01/20/2017 CL 102 01/20/2017 BUN 40 (H) 01/20/2017 CREATININE 4.48 (H) 01/20/2017 Lab Results Component Value Date HEPBSAB <8.0 01/13/2017 Patient Vitals for the past 72 hrs (Last 3 readings): Weight 01/20/17 0732 49.5 kg (109 lb 2 oz) 01/19/17 0807 48.3 kg (106 lb 8 oz) 01/18/17 0733 46.8 kg (103 lb 3.2 oz) Active Ambulatory Problems Diagnosis Date Noted Status post heart transplantation ([facility]) 07/27/2012 IDDM (insulin dependent diabetes mellitus) ([facility]) 07/28/2012 Depression 07/28/2012 Hyperlipidemia 07/28/2012 Hypertension 07/28/2012 Peripheral vascular disease ([facility]) 07/28/2012 JOHN (obstructive sleep apnea) 07/28/2012 Anemia 07/28/2012 Immunosuppression ([facility]) 10/18/2012 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 GERD (gastroesophageal reflux disease) 01/18/2013 Osteoporosis 01/18/2013 Acute rejection of heart transplant ([facility]) 01/23/2013 Edema 02/03/2013 Fever, unknown origin 07/03/2013 Headache 07/03/2013 Chronic kidney disease (CKD) 07/03/2013 Closed fracture of greater trochanter of right femur ([facility]) 12/18/2015 Ankle fracture 06/27/2016 Chronic kidney disease, stage IV (severe) ([facility]) 06/28/2016 Uncontrolled type 2 diabetes mellitus with complication, with long-term current use of insulin ([facility]) 06/28/2016 Benign hypertension with chronic kidney disease, stage IV ([facility]) 06/28/2016 Normocytic anemia 06/28/2016 Dyslipidemia 06/28/2016 Resolved Ambulatory Problems Diagnosis Date Noted Coronary artery disease CVA (cerebral vascular accident) ([facility]) 06/28/2016 CVA (cerebral vascular accident) ([facility]) 06/28/2016 Past Medical History Diagnosis Date Acid reflux Arthritis CHF (congestive heart failure) ([facility]) Chronic renal insufficiency CVA (cerebral infarction) December 11, 2010 Embolic stroke ([facility]) collected date: 03/10/10 History of endarterectomy History of heart attack Hx of blood clots Ischemic cardiomyopathy Left ventricular aneurysm Lab Results Component Value Date HEPBSAG Nonreactive 01/13/2017 9:50: 1 unit PRBC transfusing with dialysis. 10:30: Blood transfusion completed, no adverse reaction noted. VS stable. 10:45: HD x 3Hours. NetUF removed=1 Liter. Tolerated well. * CMV PCR, quantitative (01/19/2017 5:21 AM) Component Value Ref Range CMV DNA Viral Load Negative or below the linear range of the assay (<375 copies/mL) Specimen Performing Laboratory Blood - Arm, Right [facility] [address] [place] [address] Narrative Cytomegalovirus (CMV) infection can cause significant disease in immunosuppressed patients. However, it is common for CMV to manifest as a limited infection which is of no clinical significance in immunosuppressed patients or in healthy individuals. Viral load measurements are helpful to identify clinical CMV infection and to guide the pre-emptive management of antiviral therapy.For treatment of CMV infection due to reactivation in transplant recipients, a threshold between 4, 000 and 5,000 copies/mL is suggested.For treatment of primary CMV infection , a lower threshold can be used. CMV infection may also be monitored using weekly serial measurements. Serial measurements of CMV DNA viral load can be evaluated by identifying a 10-fold change, as well as assessing the CMV DNA viral load and the clinical context for each patient. The plasma CMV DNA viral load was detected using quantitative polymerase chain reaction and fluorescent monitoring of a specific hybridized probe. Genetic variation and other factors can affect the accuracy of nucleic acid testing. Therefore, the results should be interpreted in light of clinical data. A negative result may not exclude the presence of CMV disease. This test was developed and its performance characteristics determined by the [facility] Pathology Department, Section of Molecular Pathology. It has not been cleared or approved by the U.S. Food and Drug Administration ( FDA), since FDA approval is not required for clinical use of the test. Validation was done as required by The Clinical Laboratory Improvement Amendments of 1988. * Potassium-Stat Lab (01/18/2017 4:14 PM) Component Value Ref Range Potassium 3.5 (L) 3.6 - 5.5 meq/L Specimen Performing Laboratory Blood, [address] [address] * Glucose-Stat Lab (01/18/2017 4:14 PM) Component Value Ref Range Glucose 96 70 - 110 mg/dL Specimen Performing Laboratory Blood, [address] [address] * HGB/HCT (H&H)-Stat Lab (01/18/2017 4:14 PM) Component Value Ref Range Hemoglobin 7.3 (L) 12.0 - 15.0 g/dL Hematocrit 21.0 (L) 36.0 - 45.0 % Specimen Performing Laboratory Blood, Arterial [address] [address] * aPTT (01/18/2017 5:45 AM) Only the most recent of 2 results within the time period is included. Component Value Ref Range PTT 47.9 (H) 22.5 - 36.0 seconds Specimen Performing Laboratory Blood [address] [address] * Clostridium difficile Toxin PCR (01/17/2017 11:02 AM) Component Value Ref Range C.Diff Toxin, PCR Not Detected Not Detected Specimen Performing Laboratory Stool [address] [address] Narrative This qualitative real-time polymerase chain reaction assay detects the tcdB gene , encoded on the C.difficile pathogenicity locus (PaLoc).The product of tcdB , toxin B, is a cytotoxin essential for causing C.difficile-associated disease ( CDAD) and is found in virtually all toxigenic C.difficile. This assay is performed for patients suspected of having either community- acquired or nosocomial CDAD.Accordingly, only symptomatic patients should be tested and formed stools will be rejected unless ileus is present (i.e., specified when ordering).Patients may be colonized with toxigenic C.difficile strains not causing active disease; therefore, clinical correlation is needed when deciding how to manage patients with a positive test result. The assay has not been validated as a test of cure as amplifiable nucleic acid may persist after effective treatment; therefore, follow-up testing of a positive result is not recommended. * XR chest 1 view portable / bedside (01/15/2017 8:40 AM) Only the most recent of 2 results within the time period is included. Specimen Performing Laboratory GE RIS Narrative FINAL REPORT Portable chest. HISTORY: Pulmonary congestion. COMPARISON STUDY: January 10, 2017. FINDINGS: The cardiac silhouette is enlarged. A left-sided central line is seen. Interstitial and patchy airspace opacities are seen which are more pronounced than on previous. Blunting of the left costophrenic angle is noted. There is no pneumothorax. Degenerative changes are seen. Surgical clips are noted over the right upper quadrant. IMPRESSION: Insertion of dialysis line with worsening of pulmonary opacities which could be related to CHF. In the right clinical setting, a superimposed infection would be difficult to exclude. Clinical correlation and short term imaging follow-up could be made to exclude other etiologies. Signed: Shakir Swan MD Report Verified Date/Time:01/15/2017 08:52:15 Reading Location: [facility] B1 C013X Ortho Consult Reading Room Procedure Note Interface, External Ris In - 01/15/2017 8:54 AM CDT FINAL REPORT Portable chest. HISTORY: Pulmonary congestion. COMPARISON STUDY: January 10, 2017. FINDINGS: The cardiac silhouette is enlarged. A left-sided central line is seen. Interstitial and patchy airspace opacities are seen which are more pronounced than on previous. Blunting of the left costophrenic angle is noted. There is no pneumothorax. Degenerative changes are seen. Surgical clips are noted over the right upper quadrant. IMPRESSION: Insertion of dialysis line with worsening of pulmonary opacities which could be related to CHF. In the right clinical setting, a superimposed infection would be difficult to exclude. Clinical correlation and short term imaging follow-up could be made to exclude other etiologies. Signed: Shakir Swan MD Report Verified Date/Time: 01/15/2017 08:52:15 Reading Location: [facility] C013X Ortho Consult Reading Room * CT brain without IV contrast (01/14/2017 2:04 PM) Specimen Performing Laboratory [employer] RIS Narrative FINAL REPORT CT head without contrast INDICATION: Altered mental status TECHNIQUE: Axial noncontrast CT images through the head were obtained. This exam was performed according to our departmental dose optimization program which includes automated exposure control, adjustment of the mA and/or kV according to patient size and/or use of iterative reconstruction technique. COMPARISON: MRI brain 06/08/2013, CT head 05/07/2012 FINDINGS: There is no acute intracranial hemorrhage or mass effect. There are chronic bilateral cerebellar and basal ganglia infarcts. Other microvascular ischemic changes are also chronic appearing. Please note that CT is insensitive for early or small infarcts. Generalized volume loss and vascular calcifications are noted. There is no hydrocephalus or midline shift. There is mild chronic sinus mucosal disease and right mastoid air cell fluid. Cataract surgery changes are noted with proptotic globes. The calvarium is intact. IMPRESSION: No acute intracranial hemorrhage or mass effect. Chronic appearing ischemic and involutional changes. If there is persistent concern for acute abnormality, MRI is advised. Signed: Tamara Castro MD Report Verified Date/Time:01/14/2017 14:10:17 Reading Location: [address] Neuro Reading Room Procedure Note Interface, External Ris In - 01/14/2017 2:12 PM CDT FINAL REPORT CT head without contrast INDICATION: Altered mental status TECHNIQUE: Axial noncontrast CT images through the head were obtained. This exam was performed according to our departmental dose optimization program which includes automated exposure control, adjustment of the mA and/or kV according to patient size and/or use of iterative reconstruction technique. COMPARISON: MRI brain 06/08/2013, CT head 05/07/2012 FINDINGS: There is no acute intracranial hemorrhage or mass effect. There are chronic bilateral cerebellar and basal ganglia infarcts. Other microvascular ischemic changes are also chronic appearing. Please note that CT is insensitive for early or small infarcts. Generalized volume loss and vascular calcifications are noted. There is no hydrocephalus or midline shift. There is mild chronic sinus mucosal disease and right mastoid air cell fluid. Cataract surgery changes are noted with proptotic globes. The calvarium is intact. IMPRESSION: No acute intracranial hemorrhage or mass effect. Chronic appearing ischemic and involutional changes. If there is persistent concern for acute abnormality, MRI is advised. Signed: Tamara Castro MD Report Verified Date/Time: 01/14/2017 14:10:17 Reading Location: [address] Neuro Reading Room * Blood gas, arterial (01/14/2017 10:13 AM) Component Value Ref Range pH, Arterial 7.43 7.35 - 7.45 pCO2, Arterial 41 35 - 45 mmHg pO2, Arterial 75 (L) 80 - 90 mmHg O2 Sat, Arterial 95.6 (L) 96.0 - 97.0 % HCO3, Arterial 27 21 - 29 mmol/L Base Excess, Arterial 2.2 -2.0 - 3.0 mmol/L Patient Temperature 36.6 C FIO2 24.0 % Specimen Performing Laboratory Blood, Arterial - Arm, [facility] Right [address] [place] [address] * Vitamin B12 and Folate (01/14/2017 5:23 AM) Component Value Ref Range Vitamin B12 496 213 - 816 pg/mL Folate 35.0 >=7.0 ng/mL Specimen Performing Laboratory Blood [address] [address] Narrative Effective 06/11/2014: Folate Reference Range Change New: >=7.0Previous: >=5.4 * Viscosity, serum (01/13/2017 6:33 PM) Component Value Ref Range Viscosity, Serum 1.3 (L) 1.4 - 1.8 rel.viscosity Specimen Performing Laboratory Blood [address] [address] * Iron, TIBC, % sat. (without ferritin) (01/13/2017 6:31 AM) Component Value Ref Range Iron 71 40 - 160 ug/dL TIBC 181 (L) 250 - 450 ug/dL Iron % Saturation 39 20 - 55 % Specimen Performing Laboratory Blood [address] [address] * Hepatitis B Panel (01/13/2017 6:31 AM) Component Value Ref Range Hep B Core Total Ab Nonreactive Nonreactive Hep B S Ab <8.0 <8.0 mIU/mL hepatitis B Surface Ag Nonreactive Nonreactive Specimen Performing Laboratory Blood [address] [address] * Ferritin (01/13/2017 6:31 AM) Component Value Ref Range Ferritin 606 (H) 5 - 275 ng/mL Specimen Performing Laboratory Blood [address] [address] Narrative Effective 06/11/2014: Reference Range Change New: Male 5-275Previous: Male 22-322 Female 5-275Female 10-291 * Protein, 24 hour urine (01/12/2017 6:09 PM) Component Value Ref Range Protein, 24hr Urine 1926 (H) 0 - 300 mg/24hr Volume, Urine 600 ml Protein, Urine 321 (H) 0 - 14 mg/dL Specimen Performing Laboratory Urine [address] [address] Narrative Start after random urine sent * Urine Protein Electrophoresis, random (01/12/2017 6:09 PM) Component Value Ref Range Protein, Urine 291 (H) 0 - 14 mg/dL Albumin %, Urine 66.8 % Globulin %, Urine 33.2 % UPEP,ID No monoclonal bands detected. Pathologist: Eliane Rodrigues MD (electronic signature) Specimen Performing Laboratory Urine - Urine, [place] [address] [address] * PERIPHERAL VASCULAR REPORT - SCAN (01/12/2017 3:53 PM) * IR Tunneled Catheter Insertion (01/12/2017 3:25 PM) Specimen Performing Laboratory GE RIS Narrative FINAL REPORT Tunneled catheter placement Indication: Renal failure Sedation: None Procedure: Following informed consent, sterile preparation and using maximum sterile barrier technique, ultrasound was utilized to localize the left internal jugular vein. The vein was patent and hardcopy images were archived. A Duraflow catheter was tunneled subcutaneously and advanced centrally under fluoroscopic guidance into the right atrium. The catheter was secured externally. Both ports were packed with heparinized saline. The patient tolerated the procedure well. Fluoroscopy time was 0.4 minutes and estimated dosage using reference air kerma level 1.5 mGy. Impression: Placement of a left jugular tunneled dialysis catheter as discussed above. Signed: Jael Olivia MD Report Verified Date/Time:01/13/2017 08:46:17 Reading Location: [place] [address] Angio Body Reading Room Procedure Note Interface, External Ris In - 03/20/2017 4:38 AM CDT FINAL REPORT Tunneled catheter placement Indication: Renal failure Sedation: None Procedure: Following informed consent, sterile preparation and using maximum sterile barrier technique, ultrasound was utilized to localize the left internal jugular vein. The vein was patent and hardcopy images were archived. A Duraflow catheter was tunneled subcutaneously and advanced centrally under fluoroscopic guidance into the right atrium. The catheter was secured externally. Both ports were packed with heparinized saline. The patient tolerated the procedure well. Fluoroscopy time was 0.4 minutes and estimated dosage using reference air kerma level 1.5 mGy. Impression: Placement of a left jugular tunneled dialysis catheter as discussed above. Signed: Jael Olivia MD Report Verified Date/Time: 01/13/2017 08:46:17 Reading Location: [facility] [address] Angio Body Reading Room * Vein mapping arm/arms (01/12/2017 12:38 PM) Component Value Ref Range Ejection Fraction Specimen Performing Laboratory [facility]ART[facility] MKCKESSON CPACS Impressions Right Impression 1. There is no deep venous obstruction in the jugular, subclavian, axillary, brachial, radial or ulnar veins. 2. There is no superficial venous obstruction in the cephalic or basilic veins. 3. The subclavian, axillary, brachial, radial and ulnar arteries are patent with normal triphasic Doppler waveforms throughout. Left Impression 1. There is no deep venous obstruction in the jugular, subclavian, axillary, brachial, radial or ulnar veins. 2. There is no superficial venous obstruction in the lower cephalic or basilic veins. 3. The upper cephalic vein is not visualized. 4. The subclavian, axillary, brachial, radial and ulnar arteries are patent with normal triphasic Doppler waveforms throughout. Conclusions Summary Arterial duplex imaging, venous duplex imaging and compression of both upper extremities was performed. The arteries and veins were adequately visualized except as noted. The arteries were patent with normal triphasic Doppler waveforms bilaterally. The venous systems were patent and compressible with no evidence of thrombus in the visualized veins. Superficial venous measurements are documented below. Signature Velocities are measured in cm/s ; Diameters are measured in cm Cephalic Mapping Right Left + + + + + + +---- + !Location ! !AP Diam !Trans Diam! !AP Diam !Trans Diam ! + + + + + + +---- + !Cephalic at Prox UA ! ! !0.07 ! ! !0.31 ! + + + + + + +---- + !Cephalic at Mid UA ! ! !0.1 ! ! !0.14 ! + + + + + + +---- + !Cephalic at Dist UA ! ! !0.12 ! ! !0.14 ! + + + + + + +---- + !Cephalic at Prox LA ! ! !0.11 ! + + + + + !Cephalic at Mid LA ! ! ! 0.13! + + + + + !Cephalic at Dist LA ! ! !0.05 ! + + + + + Basilic Mapping Right Left + + + + + + +---- + !Location ! !AP Diam !Trans Diam! !AP Diam !Trans Diam ! + + + + + + +---- + !Basilic at Prox UA ! ! ! 0.14! ! !0.17 ! + + + + + + +---- + !Basilic at Mid UA ! ! ! 0.21! ! !0.2 ! + + + + + + +---- + !Basilic at Dist UA ! ! !0.2 ! ! !0.39 ! + + + + + + +---- + !Basilic at Prox LA ! ! ! 0.14! ! !0.26 ! + + + + + + +---- + !Basilic at Mid LA ! ! !0.1 ! ! !0.19 ! + + + + + + +---- + !Basilic at Dist LA ! ! ! 0.12! ! !0.19 ! + + + + + + +---- + Narrative [facility] - Upper Extremities Vein Mapping Demographics Patient FUNMI Dickerson of Study 01/12/2017 61 Visit [id number] Female of 11/1954 Number Referring Berkley Moody Lianna Room Number 1222 Physician Parole Or Probation Officer Dharmesh Marvin. InterpretingJ. Brian Frazier RVT, Herminio GODFREY, RPVI Procedure Type of Study: Veins: Upper Extremity Vein Mapping, VEIN MAPPING ARM/ARMS. Indications for Study:Pre-Op Vein Mapping for Arterial Venous Fistula or Graft. Patient Status:Routine. Study Location:Vascular Lab. Technical Quality:Adequate visualization. Risk Factors History of Disease + +----+ + !Diagnosis !Date!Comments ! + +----+ + !Previous DVT!!H/o DVT Left popliteal vein ! + +----+ + !Stroke!! ! + +----+ + !Other !!Respiratory failure ! + +----+ + !Other !!Septic shock ! + +----+ + !Previous Surgery!!S/p OHT 2009 ! + +----+ + !HTN !! ! + +----+ + !Other !!Immobilization ! + +----+ + Procedure Note Interface, External Ris In - 01/12/2017 3:00 PM CDT PV LAB - Upper Extremities Vein Mapping Demographics Patient Name FUNMI MONTERROSO Date of Study 01/12/2017 Age 61 Visit Number [id number] Gender Female Date of 1955 Number Referring Berkley Dsouza Room Number [id number] Physician Parole Or Probation Officer Dharmesh Marvin. Interpreting Chidi Frazier RVT, [facility] Physician , [facility] Procedure Type of Study: Veins: Upper Extremity Vein Mapping, VEIN MAPPING ARM/ARMS. Indications for Study:Pre-Op Vein Mapping for Arterial Venous Fistula or Graft. Patient Status:Routine. Study Location:Vascular Lab. Technical Quality:Adequate visualization. Risk Factors History of Disease + +----+ + !Diagnosis !Date!Comments ! + +----+ + !Previous DVT ! !H/o DVT Left popliteal vein ! + +----+ + !Stroke ! ! ! + +----+ + !Other ! !Respiratory failure ! + +----+ + !Other ! !Septic shock ! + +----+ + !Previous Surgery ! !S/p OHT 2009 ! + +----+ + !HTN ! ! ! + +----+ + !Other ! !Immobilization ! + +----+ + Impressions Right Impression 1. There is no deep venous obstruction in the jugular, subclavian, axillary, brachial, radial or ulnar veins. 2. There is no superficial venous obstruction in the cephalic or basilic veins. 3. The subclavian, axillary, brachial, radial and ulnar arteries are patent with normal triphasic Doppler waveforms throughout. Left Impression 1. There is no deep venous obstruction in the jugular, subclavian, axillary, brachial, radial or ulnar veins. 2. There is no superficial venous obstruction in the lower cephalic or basilic veins. 3. The upper cephalic vein is not visualized. 4. The subclavian, axillary, brachial, radial and ulnar arteries are patent with normal triphasic Doppler waveforms throughout. Conclusions Summary Arterial duplex imaging, venous duplex imaging and compression of both upper extremities was performed. The arteries and veins were adequately visualized except as noted. The arteries were patent with normal triphasic Doppler waveforms bilaterally. The venous systems were patent and compressible with no evidence of thrombus in the visualized veins. Superficial venous measurements are documented below. Signature Velocities are measured in cm/s ; Diameters are measured in cm Cephalic Mapping Right Left + + + + + + +---- + !Location ! !AP Diam !Trans Diam ! !AP Diam ! Trans Diam ! + + + + + + +---- + !Cephalic at Prox UA ! ! !0.07 ! ! ! 0.31 ! + + + + + + +---- + !Cephalic at Mid UA ! ! !0.1 ! ! ! 0.14 ! + + + + + + +---- + !Cephalic at Dist UA ! ! !0.12 ! ! ! 0.14 ! + + + + + + +---- + !Cephalic at Prox LA ! ! !0.11 ! + + + + + !Cephalic at Mid LA ! ! !0.13 ! + + + + + !Cephalic at Dist LA ! ! !0.05 ! + + + + + Basilic Mapping Right Left + + + + + + +---- + !Location ! !AP Diam !Trans Diam ! !AP Diam ! Trans Diam ! + + + + + + +---- + !Basilic at Prox UA ! ! !0.14 ! ! ! 0.17 ! + + + + + + +---- + !Basilic at Mid UA ! ! !0.21 ! ! ! 0.2 ! + + + + + + +---- + !Basilic at Dist UA ! ! !0.2 ! ! ! 0.39 ! + + + + + + +---- + !Basilic at Prox LA ! ! !0.14 ! ! ! 0.26 ! + + + + + + +---- + !Basilic at Mid LA ! ! !0.1 ! ! ! 0.19 ! + + + + + + +---- + !Basilic at Dist LA ! ! !0.12 ! ! ! 0.19 ! + + + + + + +---- + * ECG 12 lead (01/12/2017 11:04 AM) Specimen Performing Laboratory GE MUSE Narrative Ventricular Rate 109 BPM Atrial Rate 109 BPM P-R Interval 164 ms QRS Duration 80 ms Q-T Interval 346 ms QTC Calculation(Bazett) 465 ms P Garrett 36 degrees R Garrett 109 degrees T Garrett 37 degrees Sinus tachycardia Rightward axis Borderline ECG When compared with ECG of 19-DEC-2015 12:10, Nonspecific T wave abnormality no longer evident in Anterior leads Confirmed by Jimenez Toro Alireaz ([id number]) on 01/12/2017 2:01:35 PM Procedure Note Interface, External Ris In - 01/12/2017 2:01 PM CDT Ventricular Rate 109 BPM Atrial Rate 109 BPM P-R Interval 164 ms QRS Duration 80 ms Q-T Interval 346 ms QTC Calculation(Bazett) 465 ms P Garrett 36 degrees R Garrett 109 degrees T Garrett 37 degrees Sinus tachycardia Rightward axis Borderline ECG When compared with ECG of 19-DEC-2015 12:10, Nonspecific T wave abnormality no longer evident in Anterior leads Confirmed by Jimenez Toro Alireaz ([id number]) on 01/12/2017 2:01:35 PM * Protein, random urine (01/11/2017 12:17 PM) Component Value Ref Range Protein, Urine 532 (H) 0 - 14 mg/dL Specimen Performing Laboratory Urine - Urine, [address] [address] * Creatinine, random urine (01/11/2017 12:17 PM) Only the most recent of 2 results within the time period is included. Component Value Ref Range Creatinine, Ur 92.5 mg/dL Specimen Performing Laboratory Urine - Urine, [address] [address] Narrative Reference Range: No Normals * Eosinophil smear (01/11/2017 12:17 PM) Component Value Ref Range Eosinophil Smear No EOS seen No EOS seen Specimen Performing Laboratory Urine - Urine[address] [address] * Hemoglobin and hematocrit (01/11/2017 12:12 PM) Component Value Ref Range Hemoglobin 7.0 (L) 12.0 - 15.0 GM/DL Hematocrit 21.3 (L) 36.0 - 45.0 % Specimen Performing Laboratory Blood - Line, Arterial [facility] [address] [place] [address], [place] [address] * [place] / lambda light chains, serum (01/11/2017 11:33 AM) Component Value Ref Range [place] Lt Chain,Free 119.20 (H) 3.3 - 19.4 mg/L Lambda Lt Chain,Free 81.62 (H) 5.7 - 26.3 mg/L [place]/Lambda,Free 1.46 0.26 - 1.65 Comment: Comment: In serum, the kappa/lambda ratio of whole immunoglobulin molecules is 2:1, whereas the kappa/lambda ratio of free light chains is 1:1.5. The latter is attributed to the occurrence of lambda light chains as dimers whose serum 1/2-life is approximately 3 times longer than that of monomeric kappa light chains. Excess production of kappa or lambda light chains alters the kappa/lambda ratio. Alterations that fall outside the normal range are attributed to the presence of monoclonal light chains. Monoclonal light chains are found in serum of patients with multiple myeloma, the light chain variant of MM, Waldenstrom's macroglobulinemia, mu-heavy chain disease, primary amyloidosis, light chain deposition disease, monoclonal gammopathy of undetermined significance, and lymphoproliferative diseases such as B-CLL. Measurement of free light chain concentration in serum is useful for diagnosis, prognosis, monitoring disease activity and following response to therapy of these disorders. Chronic infection and chronic inflammatory diseases, as well as renal insufficiency, may be accompanied by a diffuse increase in both kappa and lambda free light chains, but the kappa/lambda ratio remains within the normal limits. The serum concentration of free light chains increases with age over 60 years; light chains may reach 50 mg/L in those 70-80 yrs of age; in these cases the kappa/lambda ratio still remains within normal limits. Physicians, who are accustomed to the identification of clonal protein by electrophoretic means, may order immunofixation in addition to free light chain immunoassay. In rare instances, immunofixation may identify monoclonal light chain protein in the absence of abnormalities in the quantitative light chain immunoassays. Aneudy ROJAS et al., Serum reference intervals and diagnostic ranges for free kappa and free lambda immunoglobulin light chains: Relative sensitivity for detection of monoclonal light chains. Clin Chem 2002,[id number]. Specimen Performing Laboratory Blood - Line, Arterial [facility] [address] [place] [address] Narrative Performing Lab [facility] [address] [address] Amber Pope MD * Glomerular basement membrane antibody (01/11/2017 11:33 AM) Component Value Ref Range GBM Ab <1.0 <1.0 AI Comment: Interpretation: < 1.0 AI No Antibody Detected > OR=1.0 AI Antibody Detected Specimen Performing Laboratory Blood - Line, Arterial [facility] [id number] [place] [address] Narrative Performing Lab [facility] [address] [address] Amber Pope MD * Hepatitis panel, acute (01/11/2017 11:33 AM) Component Value Ref Range Hep A IgM Nonreactive Nonreactive Hep B C IgM Nonreactive Nonreactive Hepatitis C Ab Reactive (A) Nonreactive hepatitis B Surface Ag Nonreactive Nonreactive Interpretation See Result Comments. Pathologist: Farzad Luna M.D. (electonic signature) Specimen Performing Laboratory Blood - Line, [place] [address] Narrative Hepatitis C exposure detected - likelihood of infectivity is high. Additional tests are recommended prior to initiation of therapy (Quantitative HCV-PCR;Genotype). No evidence of acute Hepatitis A.For evaluation of immune status, please order anti-HAV Total (IgG & IgM). No evidence of Hepatitis B. * Vitamin D, 25-Hydroxy (01/11/2017 11:33 AM) Component Value Ref Range Vitamin D 25-Hydroxy 19.5 13.0 - 47.8 ng/mL Specimen Performing Laboratory Blood - Line, [place] [id number] * Anti-Neutrophil Cytoplasmic Ab (ANCA) (01/11/2017 11:33 AM) Component Value Ref Range Proteinase-3 Ab <1.0 <1.0 AI Comment: <1.0 AI No Antibody Detected > or=1.0 AI Antibody Detected Autoantibodies to proteinase-3 (WY-3) are accepted as characteristic for granulomatosis with polyangiitis (Shree's), and are detectable in 95% of the histologically proven cases. The cytoplasmic IFA pattern (c-ANCA) is based largely on autoantibody to WY-3 which serves as the primary antigen. These autoantibodies are present in the active disease state. Myeloperoxidase Ab <1.0 <1.0 AI Comment: <1.0 AI No Antibody Detected > or=1.0 AI Antibody Detected Autoantibodies to myeloperoxidase (MPO) are commonly associated with the following small-vessel vasculitides: microscopic polyangiitis, polyarteritis nodosa, Churg-Vidal syndrome, necrotizing and crescentic glomerulonephritis and occasionally granulomatosis with polyangiitis (Shree's). The perinuclear IFA pattern (p-ANCA) is based largely on autoantibody to myeloperoxidase which serves as the primary antigen. These autoantibodies are present in the active disease state. Specimen Performing Laboratory Blood - Line, Arterial [facility] [address] [address] Narrative Performing Lab [facility] [address] [address] Amber Pope MD * Complement Component C3 (01/11/2017 11:33 AM) Component Value Ref Range C3 Complement 101 82 - 193 mg/dL Specimen Performing Laboratory Blood - Line, [address] [address] Narrative Effective 06/11/2014: Reference Range Change New: 82-193 Previous: 79-152 * Complement Component C4 (01/11/2017 11:33 AM) Component Value Ref Range C4 Complement 33 15 - 57 mg/dL Specimen Performing Laboratory Blood - Line, [address] [address] Narrative Effective 06/11/2014: Reference Range Change New: 15-57 Previous: 16-38 * Anti-Nuclear Antibody (DEB) (01/11/2017 11:33 AM) Component Value Ref Range DEB Negative Negative Specimen Performing Laboratory Blood - Line, [address] [address] * Protein electrophoresis, serum (01/11/2017 11:33 AM) Component Value Ref Range Albumin Fraction 2.7 (L) 3.5 - 5.5 g/dL Alpha 1 Fraction 0.2 0.2 - 0.4 g/dL Alpha 2 Fraction 0.6 0.5 - 0.9 g/dL Beta Fraction 0.9 0.6 - 1.1 g/dL Gamma Globulin Fraction 0.6 (L) 0.7 - 1.7 g/dL Interpretation Decrease albumin and gamma globulins, suggestive of renal loss or protein-losing enteropathy. Elevation of alpha/beta fractions suggestive of acute inflammatory response. No monoclonal bands detected. Pathologist: Eliane Rodrigues MD (electronic signature) Protein, Total 5.0 (L) 6.0 - 8.3 gm/dL Specimen Performing Laboratory Blood - Line, Arterial [facility] [address] [address] * US Renal with Doppler (01/11/2017 6:45 AM) Specimen Performing Laboratory [facility] Narrative FINAL REPORT History: Hypertensive emergency, renal artery stenosis Comparison: 06/10/2013 Discussion : Transverse and longitudinal images of the kidneys were performed bilaterally as well as color Doppler and spectralinterrogation of the renal arteries as well as the arcuate arteries with calculation of acceleration times, acceleration indices and resistive indices. The right kidney measures 8.6 x 4.7 x 4.8 cm and the left kidney measures 9.3 x 4.6 x 4.6 cm. There is no hydronephrosis, masses, cysts or calculi. The acceleration time of the right upper, mid and lower poles are 0.02, 0.02 and 0.02 seconds. The resistive index of the right upper, middle and lower poles of the kidney are 0.67, 0.63 and 0.77. The acceleration index in the right upper, middle and lower poles are 6.7, 7.1 and 4.0 m/sec. The acceleration time of the left upper, mid and lower poles are 0.01, 0.04 and 0.04 seconds. The resistive index of the left upper, middle and lower poles of the kidney are 0.50, 0.58 and 0.67. The acceleration index in the right upper, middle and lower poles are 6.3, 3.1, and 2.5 m/sec. The ratio of the peak systolic velocity of the main renal artery to the aorta on the right side is 1.71 and on the left side is 0.51. The bladder is not distended secondary to the presence of a Hercules catheter precluding evaluation. IMPRESSION: 1. No Doppler findings to suggest renal artery stenosis. 2. Echogenic kidneys suggestive of underlying medical renal disease. Signed: Rosa Henderson MD Report Verified Date/Time:01/11/2017 08:36:30 Reading Location: [address] Ultrasound Reading Room Procedure Note Interface, External Ris In - 01/11/2017 8:38 AM CDT FINAL REPORT History: Hypertensive emergency, renal artery stenosis Comparison: 06/10/2013 Discussion : Transverse and longitudinal images of the kidneys were performed bilaterally as well as color Doppler and spectral interrogation of the renal arteries as well as the arcuate arteries with calculation of acceleration times, acceleration indices and resistive indices. The right kidney measures 8.6 x 4.7 x 4.8 cm and the left kidney measures 9.3 x 4.6 x 4.6 cm. There is no hydronephrosis, masses, cysts or calculi. The acceleration time of the right upper, mid and lower poles are 0.02, 0.02 and 0.02 seconds. The resistive index of the right upper, middle and lower poles of the kidney are 0.67, 0.63 and 0.77. The acceleration index in the right upper, middle and lower poles are 6.7, 7.1 and 4.0 m/sec. The acceleration time of the left upper, mid and lower poles are 0.01, 0.04 and 0.04 seconds. The resistive index of the left upper, middle and lower poles of the kidney are 0.50, 0.58 and 0.67. The acceleration index in the right upper, middle and lower poles are 6.3, 3.1, and 2.5 m/sec. The ratio of the peak systolic velocity of the main renal artery to the aorta on the right side is 1.71 and on the left side is 0.51. The bladder is not distended secondary to the presence of a Hercules catheter precluding evaluation. IMPRESSION: 1. No Doppler findings to suggest renal artery stenosis. 2. Echogenic kidneys suggestive of underlying medical renal disease. Signed: Rosa Henderson MD Report Verified Date/Time: 01/11/2017 08:36:30 Reading Location: [address] Ultrasound Reading Room * Sodium, random urine (01/11/2017 5:34 AM) Component Value Ref Range Sodium Urine 49 meq/L Specimen Performing Laboratory Urine - Urine, [address] [address] Narrative Reference Range: No Normals * Potassium, random urine (01/11/2017 5:34 AM) Component Value Ref Range Potassium Urine 31.2 meq/L Specimen Performing Laboratory Urine - Urine, [address] [address] Narrative Reference Range: No Normals * Osmolality, urine (01/11/2017 5:34 AM) Component Value Ref Range Osmolality, Ur 373 40 - 1400 mOsm/kg Specimen Performing Laboratory Urine - Urine, [address] [address] * Urinalysis w/Microscopic (01/11/2017 5:34 AM) Component Value Ref Range Color, UA Yellow Clarity, UA Clear Specific [place], UA 1.016 1.001 - 1.035 pH, UA 8.0 5.0 - 8.0 Protein, UA 600 mg/dL (A) Negative Glucose, UA Negative Negative Ketones, UA Negative Negative Bilirubin, UA Negative Negative Blood, UA Negative Negative Nitrite, UA Negative Negative Leukocytes, UA Small (A) Negative Urobilinogen, UA 0.2 0.2 - 1.0 mg/dL RBC, UA 5 /HPF WBC, UA 44 /HPF Bacteria, UA Occasional Mucus Rare Specimen Source Urine, [place] Specimen Performing Laboratory Urine - Urine, [address] [address] * Osmolality, serum (01/11/2017 3:09 AM) Component Value Ref Range Osmolality Serum 307 (H) 275 - 295 mOsm/kg Specimen Performing Laboratory Blood - Line, [address] [address] after 09/12/2016
--- OUTSIDE RECORDS SUMMARY | 2017-09-13 15:16 | XMS REPORT ---
Author Author [facility] Address Unknown Phone Unavailable Care Team Providers Care Wind Up Operator Name Role Phone HOLLY PAINTING Unavailable Unavailable THEJHONNY AGUIRRE Unavailable Unavailable SALONI, BHAMIDIPATI Unavailable Unavailable CIVITEKRISTINE MCKEON Unavailable Unavailable ALTHEA, ELSIE Unavailable Unavailable TAIMEH, ZIAD Unavailable Unavailable JUDI, CELINA Unavailable Unavailable MJ, AMELIE Unavailable Unavailable Problems This patient has no known problems. Allergies, Adverse Reactions, Alerts This patient has no known allergies or adverse reactions. Medications This patient has no known medications. Results Test Description Test Time Test Comments Text Results Atomic Results Result Comments HEPATITIS C PCR, QUANTITATIVE 2017-08-27 10:44:00 HCV RESULT COMPONENT (ANDINE) (test dogg=0737) HCV RNA not detected HCV RNA not detected This test uses a Real-Time Polymerase Chain Reaction (RT-PCR) methodology and was performed using SERA Ampliprep/SERA TaqMan HCV test kit version 2.0 ( [employer]).Reportable range for this assay is 15 - 100,000, 000 IU per mL (1.18 - 8.00 Log IU/mL).This test uses a Real-Time Polymerase Chain Reaction (RT-PCR) methodology and was performed using SERA Ampliprep/ SERA TaqMan HCV test kit version 2.0 ([employer]) .Reportable range for this assay is 15 - 100,000,000 IU per mL (1.18 - 8.00 Log IU/mL).[id number] 15:49:00* Test Item Value Reference Range Comments THYROID STIMULATING HORMONE (NADINE) (test mryd=909) 2.90 uIU/mL 0.35-4.94 HEPATITIS A ANTIBODY, [id number] 14:46:00* Test Item Value Reference Range Comments HEPATITIS A IGG ANTIBODY (STRATUSCOREEDDY) (test zpoo=2248) Reactive Nonreactive ALPHA FETOPROTEIN (AFP), TUMOR [id number] 14:33:00* Test Item Value Reference Range Comments ALPHA-FETOPROTEIN (BEAKER) (test vray=7831) 2.0 ng/mL <10.0 BASIC METABOLIC [id number] 14:20:00* Test Item Value Reference Range Comments SODIUM (BEAKER) (test mtot=037) 135 meq/L 136-145 POTASSIUM (BEAKER) (test rwrn=746) 5.1 meq/L 3.5-5.1 CHLORIDE (BEAKER) (test sfti=156) 97 meq/L 98-107 CO2 (BEAKER) (test yuzo=276) 29 meq/L 22-29 BLOOD UREA NITROGEN (BEAKER) (test sadu=738) 27 mg/dL 7-21 CREATININE (BEAKER) (test ekbf=857) 3.10 mg/dL 0.57-1.25 GLUCOSE RANDOM (BEAKER) (test tzju=451) 156 mg/dL 70-105 CALCIUM (BEAKER) (test lzfv=570) 9.3 mg/dL 8.4-10.2 EGFR (BEAKER) (test xyob=9251) 15 mL/min/1.73 sq m ESTIMATED GFR IS NOT ACCURATE CREATININE CLEARANCE IN PREDICTING GLOMERULAR FILTRATION RATE. ESTIMATED GFR IS NOT APPLICABLE FOR DIALYSIS PATIENTS. HEPATIC FUNCTION [id number] 14:18:00* Test Item Value Reference Range Comments TOTAL PROTEIN (BEAKER) (test rwdq=408) 7.0 gm/dL 6.0-8.3 ALBUMIN (BEAKER) (test szhd=7658) 3.6 g/dL 3.5-5.0 BILIRUBIN TOTAL (BEAKER) (test lsoz=318) 0.6 mg/dL 0.2-1.2 BILIRUBIN DIRECT (BEAKER) (test tbaz=337) 0.2 mg/dL 0.1-0.5 ALKALINE PHOSPHATASE (BEAKER) (test yquk=557) 138 U/L 40-150 AST (SGOT) (BEAKER) (test mspx=053) 22 U/L 5-34 ALT (SGPT) (BEAKER) (test mxce=568) 15 U/L 6-55 GAMMA GLUTAMYL TRANSFERASE (GGT)2017-08-24 14:18:00* Test Item Value Reference Range Comments GAMMA GLUTAMYL TRANSFERASE (BEAKER) (test eyfm=000) 17 U/L 9-64 PROTHROMBIN TIME/[id number] 13:49:00* Test Item Value Reference Range Comments PROTIME (BEAKER) (test cbmb=548) 13.5 seconds 11.7-14.7 INR (BEAKER) (test ufog=803) 1.0 <=5.9 RECOMMENDED COUMADIN/WARFARIN INR THERAPY RANGESSTANDARD DOSE: 2.0 - 3.0 Includes: PROPHYLAXIS for venous thrombosis, systemic embolization; TREATMENT for venous thrombosis and/or pulmonary embolus.HIGH RISK: Target INR is 2.5-3.5 for patients with mechanical heart valves.CBC W/PLT COUNT & AUTO [id number] 13:42:00* Test Item Value Reference Range Comments WHITE BLOOD CELL COUNT (BEAKER) (test tdeh=062) 5.8 K/ L 3.5-10.5 RED BLOOD CELL COUNT (BEAKER) (test gzxk=359) 3.07 M/ L 3.93-5.22 HEMOGLOBIN (BEAKER) (test hfgu=757) 9.3 GM/DL 11.2-15.7 HEMATOCRIT (BEAKER) (test wqrm=877) 31.7 % 34.1-44.9 MEAN CORPUSCULAR VOLUME (BEAKER) (test fvag=947) 103.3 fL 79.4-94.8 MEAN CORPUSCULAR HEMOGLOBIN (BEAKER) (test tkwm=364) 30.3 pg 25.6-32.2 MEAN CORPUSCULAR HEMOGLOBIN CONC (BEAKER) (test wpdh=810) 29.3 GM/DL 32.2- 35.5 RED CELL DISTRIBUTION WIDTH (BEAKER) (test qnwa=959) 15.2 % 11.7-14.4 PLATELET COUNT (BEAKER) (test omdd=125) 293 K/CU MM 150-450 MEAN PLATELET VOLUME (BEAKER) (test pgbf=868) 8.7 fL 9.4-12.3 NUCLEATED RED BLOOD CELLS (BEAKER) (test ejcz=808) 0 /100 WBC 0-0 NEUTROPHILS RELATIVE PERCENT (BEAKER) (test kmtd=838) 47 % LYMPHOCYTES RELATIVE PERCENT (BEAKER) (test fzet=267) 42 % MONOCYTES RELATIVE PERCENT (BEAKER) (test yiqv=357) 9 % EOSINOPHILS RELATIVE PERCENT (BEAKER) (test yexq=940) 2 % BASOPHILS RELATIVE PERCENT (BEAKER) (test xvzt=445) 1 % NEUTROPHILS ABSOLUTE COUNT (BEAKER) (test pbmq=432) 2.72 K/ L 1.56-6.13 LYMPHOCYTES ABSOLUTE COUNT (BEAKER) (test rzow=932) 2.42 K/ L 1.18-3.74 MONOCYTES ABSOLUTE COUNT (BEAKER) (test egfw=813) 0.53 K/ L 0.24-0.36 EOSINOPHILS ABSOLUTE COUNT (BEAKER) (test cyem=660) 0.10 K/ L 0.04-0.36 BASOPHILS ABSOLUTE COUNT (BEAKER) (test pzfa=039) 0.05 K/ L 0.01-0.08 IMMATURE GRANULOCYTES-RELATIVE PERCENT (BEAKER) (test sboh=8653) 0 % 0-1 CT, CTA [id number] 15:14:00Addendum BeginsREPORT STATUS:A Addendum: I agree with the previously described non vascular findings. Signed: Milka Reid MDReport Verified Date/Time: 08/15/2017 15:14:22 Reading Location: [place] [address] Angio Body Reading RoomAddendum EndsFINAL REPORT CT angiography of the abdominal aorta and pelvic arteries , 15 August 2017 INDICATION: This is a 62 year old female with end-stage renal disease presents for pretransplant assessment. This study is performed in an attempt to avoid an invasive procedure. TECHNIQUE: Spiral acquisition before and during intravenous contrast administration using a Data Stream CBOT multidetector CT scanner. Images were obtained before [...] artery though no obstructive lesion is identified. Vertical Lathe Operator dimensions of the left and the right external iliac arteries are 5 and 5 mm, respectively. Note, surgical clips are seen in the left common femoral level indicating right surgery at this level. Correlate with appropriate procedure history. Similarly, the associated pelvic veins are patent with no venous thrombosis identified. Vertical Lathe Operator dimensions of the left and the right external iliac veins are 12 and 10 mm, respectively. The grayling left and right renal arteries are patent though calcific atherosclerosis is seen, consistent with end-stage renal disease. The coeliac axis, SMA, TOI only have minimal eccentric nonobstructive calcification present. NON-VASCULAR: - In the lung bases, a 1 mm [...] no arterial stenosis or venous thrombosis identified. Vertical Lathe Operator dimensions of the left and the right external iliac arteries and veins are as described above. Calcification is seen in the common iliac arteries , bilaterally, however, they are nonobstructive. 2. Widely patent mesenteric arteries. 3. Other findings as described above. 4. An addendum will be dictated regarding the non-vascular findings by the Assistant Loan Processor Radiologist. Signed: Monster Corral MDReport Verified Date/Time: 08/15/2017 09:33:56 Reading Location: [place] [address] Cardiology MRI , CHEST, 2 [id number] 09:19: 00Reason for Exam:->Pre kidney transplant evaluation.FINAL REPORT Chest, PA and lateral. History: Pretransplant evaluation. Comparison : 01/15/2017. Discussion: Mild prominence of cardiac silhouette. Mild interstitial edema. Trace pleural fluid present. The lungs are otherwise clear without evidence of focal consolidation. There are no acute osseous abnormalities. Status post median sternotomy. The soft tissues are unremarkable. IMPRESSION: Mild pulmonary edema. Signed: Gretchen Smartort Verified Date/Time: 08/15/2017 09:19:59 Reading Location: [address] Radiology Reading Room E [id number] 10:47:00* Test Item Value Reference Range Comments CULTURE (BEAKER) (test ypbp=2583) Amikacin (test code=1) Ampicillin + Sulbactam (test code=6) Aztreonam (test code=32) Cefepime (test code=51) Cefoxitin (test code=68) Ceftazidime (test code=27) Ceftriaxone (test code=52) Ertapenem (test code=38) Gentamicin (test code=18) Levofloxacin (test code=22) Meropenem (test code=34) Nitrofurantoin (test code=23) Piperacillin + Tazobactam (test code=29) Tetracycline (test code=2) Tobramycin (test code=25) Trimethoprim + Sulfamethoxazole (test code=47) CULTURE ([employer]) (test gqvk=6679) 50-59,000 col/mL Raoultella ornithinolytica >100,000 col/ml skin [id number] 10:23:00* Test Item Value Reference Range Comments RPR SCREEN (STRATUSCOREAKER) (test waph=866) Nonreactive Nonreactive VARICELLA ZOSTER ANTIBODY, [id number] 09:06:00* Test Item Value Reference Range Comments VARICELLA ZOSTER IGG (AL) (STRATUSCOREAKER) (test nobd=6953) 2.5 Al VARICELLA ZOSTER RESULT INTERPRETATIONS: <=0.8 Al Nonreactive: Presumed non-immune to VZV 0.9-1.0 Al Equivocal >=1.1 Al Reactive: Presumed immune to VZVCYTOMEGALOVIRUS ANTIBODY, [id number] 08:58 :00* Test Item Value Reference Range Comments CYTOMEGALOVIRUS IGG ANTIBODY (BEAKER) (test yemm=655) Positive CYTOMEGALOVIRUS ANTIBODY, [id number] 08:58:00* Test Item Value Reference Range Comments CYTOMEGALOVIRUS IGM ANTIBODY (BEAKER) (test mrgu=440) Negative EBV-VCA ANTIBODY, [id number] 08:58:00* Test Item Value Reference Range Comments KATHERINE-PEMBERTON VCA IGG (BEAKER) (test gkfd=928) Positive EBV-VCA ANTIBODY, [id number] 08:58:00* Test Item Value Reference Range Comments KATHERINE-PEMBERTON VCA IGM (BEAKER) (test qjyx=543) Negative HEMOGLOBIN [id number] 14:51:00* Test Item Value Reference Range Comments HEMOGLOBIN A1C (BEAKER) (test aysl=214) 5.3 % 4.3-6.1 HEPATITIS C [id number] 14:41:00* Test Item Value Reference Range Comments HEPATITIS C ANTIBODY (BEAKER) (test knib=683) Reactive Nonreactive HEPATITIS B SURFACE [id number] 14:34:00* Test Item Value Reference Range Comments HEPATITIS B SURFACE ANTIBODY (BEAKER) (test wepd=046) < mIU/mL <8.0 HEPATITIS B SURFACE [id number] 14:21:00* Test Item Value Reference Range Comments HEPATITIS B SURFACE ANTIGEN (2) (BEAKER) (test vrqa=2530) Nonreactive Nonreactive HEPATITIS B CORE ANTIBODY, [id number] 14:21:00* Test Item Value Reference Range Comments HEPATITIS B CORE IGM ANTIBODY (BEAKER) (test othe=389) Nonreactive Nonreactive HIV-1 ANTIGEN WITH HIV-1/2 [id number] 14:21:00* Test Item Value Reference Range Comments HIV-1 ANTIGEN WITH HIV 1\T\2 ANTIBODY (2) (BEAKER) (test ultu=0480) Nonreactive Nonreactive COMPREHENSIVE METABOLIC [id number] 13:17:00* Test Item Value Reference Range Comments TOTAL PROTEIN (BEAKER) (test lzcz=984) 6.7 gm/dL 6.0-8.3 ALBUMIN (BEAKER) (test zxeb=1370) 3.7 g/dL 3.5-5.0 ALKALINE PHOSPHATASE (BEAKER) (test grar=279) 159 U/L 40-150 BILIRUBIN TOTAL (BEAKER) (test idsq=215) 0.6 mg/dL 0.2-1.2 SODIUM (BEAKER) (test adyo=733) 137 meq/L 136-145 POTASSIUM (BEAKER) (test zsfy=579) 4.5 meq/L 3.5-5.1 CHLORIDE (BEAKER) (test mdhx=768) 98 meq/L 98-107 CO2 (BEAKER) (test bddg=009) 30 meq/L 22-29 BLOOD UREA NITROGEN (BEAKER) (test nnqe=663) 18 mg/dL 7-21 CREATININE (BEAKER) (test dqpn=143) 3.16 mg/dL 0.57-1.25 GLUCOSE RANDOM (BEAKER) (test gkvm=461) 81 mg/dL 70-105 CALCIUM (BEAKER) (test skgm=749) 9.2 mg/dL 8.4-10.2 AST (SGOT) (BEAKER) (test wxua=980) 20 U/L 5-34 ALT (SGPT) (BEAKER) (test ymez=081) 13 U/L 6-55 EGFR (BEAKER) (test kgcf=8165) 15 mL/min/1.73 sq m ESTIMATED GFR IS NOT ACCURATE CREATININE CLEARANCE IN PREDICTING GLOMERULAR FILTRATION RATE. ESTIMATED GFR IS NOT APPLICABLE FOR DIALYSIS PATIENTS. PTH, [id number] 12:47:00* Test Item Value Reference Range Comments PARATHYROID HORMONE INTACT (BEAKER) (test voox=617) 482.6 pg/mL 8.5-72.5 URIC [id number] 12:42:00* Test Item Value Reference Range Comments URIC ACID (BEAKER) (test spti=423) 3.1 mg/dL 2.6-7.2 [id number] 12:42:00* Test Item Value Reference Range Comments PHOSPHORUS (BEAKER) (test kwcb=846) 2.8 mg/dL 2.3-4.7 LIPID [id number] 12:42:00* Test Item Value Reference Range Comments TRIGLYCERIDES (BEAKER) (test axzq=688) 91 mg/dL CHOLESTEROL (BEAKER) (test owfa=875) 136 mg/dL HDL CHOLESTEROL (BEAKER) (test swjw=996) 33 mg/dL LDL CHOLESTEROL CALCULATED (BEAKER) (test jrah=480) 85 mg/dL Triglyceride Reference Range: Low Risk <150 Borderline 150-199 High Risk 200-499 Very High Risk >=500Cholesterol Reference Range: Low Risk <200 Borderline 200-239 High Risk >240HDL Cholesterol Reference Range: Low Risk >=60 High Risk <40LDL Cholesterol Reference Range: Optimal <100 Near Optimal 100-129 Borderline 130-159 High 160-189 Very High >=190 GAMMA GLUTAMYL TRANSFERASE (GGT)2017-07-27 12:42:00* Test Item Value Reference Range Comments GAMMA GLUTAMYL TRANSFERASE (BEAKER) (test eujx=659) 17 U/L 9-64 LACTATE DEHYDROGENASE (LDH)2017-07-27 12:42:00* Test Item Value Reference Range Comments LACTATE DEHYDROGENASE (BEAKER) (test snrp=072) 298 U/L 125-220 [id number] 12:06:00* Test Item Value Reference Range Comments PROTIME (BEAKER) (test yqco=883) 12.9 seconds 11.7-14.7 INR (BEAKER) (test gowm=480) 1.0 <=5.9 PARTIAL THROMBOPLASTIN TIME (BEAKER) (test alje=769) 29.0 seconds 22.5-36.0 RECOMMENDED COUMADIN/WARFARIN INR THERAPY RANGESSTANDARD DOSE: 2.0 - 3.0 Includes: PROPHYLAXIS for venous thrombosis, systemic embolization; TREATMENT for venous thrombosis and/or pulmonary embolus.HIGH RISK: Target INR is 2.5-3.5 for patients with mechanical heart valves.CBC W/PLT COUNT & AUTO [id number] 11:55:00* Test Item Value Reference Range Comments WHITE BLOOD CELL COUNT (BEAKER) (test uqhs=754) 6.9 K/ L 3.5-10.5 RED BLOOD CELL COUNT (BEAKER) (test zwww=411) 3.28 M/ L 3.93-5.22 HEMOGLOBIN (BEAKER) (test jkeu=122) 10.5 GM/DL 11.2-15.7 HEMATOCRIT (BEAKER) (test fzkr=382) 35.0 % 34.1-44.9 MEAN CORPUSCULAR VOLUME (BEAKER) (test cfon=593) 106.7 fL 79.4-94.8 MEAN CORPUSCULAR HEMOGLOBIN (BEAKER) (test uahs=409) 32.0 pg 25.6-32.2 MEAN CORPUSCULAR HEMOGLOBIN CONC (BEAKER) (test zszv=729) 30.0 GM/DL 32.2- 35.5 RED CELL DISTRIBUTION WIDTH (BEAKER) (test cerr=647) 14.0 % 11.7-14.4 PLATELET COUNT (BEAKER) (test kpwh=206) 223 K/CU MM 150-450 MEAN PLATELET VOLUME (BEAKER) (test yvcj=406) 8.7 fL 9.4-12.3 NUCLEATED RED BLOOD CELLS (BEAKER) (test onwr=499) 0 /100 WBC 0-0 NEUTROPHILS RELATIVE PERCENT (BEAKER) (test knvg=197) 56 % LYMPHOCYTES RELATIVE PERCENT (BEAKER) (test recy=694) 33 % MONOCYTES RELATIVE PERCENT (BEAKER) (test mjuu=418) 9 % EOSINOPHILS RELATIVE PERCENT (BEAKER) (test tbxu=265) 1 % BASOPHILS RELATIVE PERCENT (BEAKER) (test olhu=781) 1 % NEUTROPHILS ABSOLUTE COUNT (BEAKER) (test unmv=288) 3.89 K/ L 1.56-6.13 LYMPHOCYTES ABSOLUTE COUNT (BEAKER) (test yayk=102) 2.25 K/ L 1.18-3.74 MONOCYTES ABSOLUTE COUNT (BEAKER) (test cewu=519) 0.64 K/ L 0.24-0.36 EOSINOPHILS ABSOLUTE COUNT (BEAKER) (test dyuv=914) 0.09 K/ L 0.04-0.36 BASOPHILS ABSOLUTE COUNT (BEAKER) (test qobb=155) 0.04 K/ L 0.01-0.08 IMMATURE GRANULOCYTES-RELATIVE PERCENT (BEAKER) (test ixla=4738) 0 % 0-1 TSH/FREE T4 IF [id number] 15:09:00* Test Item Value Reference Range Comments THYROID STIMULATING HORMONE (BEAKER) (test vwqj=199) 4.09 uIU/mL 0.35-4.94 [id number] 14:49:00* Test Item Value Reference Range Comments PREALBUMIN (BEAKER) (test zfev=904) 46 mg/dL 14-45 TACROLIMUS [id number] 12:47:00* Test Item Value Reference Range Comments TACROLIMUS BLOOD (BEAKER) (test pkbx=409) 5.1 ng/mL 10.0-20.0 HEPATIC FUNCTION [id number] 12:24:00* Test Item Value Reference Range Comments TOTAL PROTEIN (BEAKER) (test idty=502) 6.7 gm/dL 6.0-8.3 ALBUMIN (BEAKER) (test ipwv=7906) 3.7 g/dL 3.5-5.0 BILIRUBIN TOTAL (BEAKER) (test eedb=027) 0.3 mg/dL 0.2-1.2 BILIRUBIN DIRECT (BEAKER) (test dyzb=141) 0.2 mg/dL 0.1-0.5 ALKALINE PHOSPHATASE (BEAKER) (test lenz=651) 207 U/L 40-150 AST (SGOT) (BEAKER) (test tvsx=597) 21 U/L 5-34 ALT (SGPT) (BEAKER) (test zttl=043) 10 U/L 6-55 CBC W/PLT COUNT & AUTO [id number] 11:29:00* Test Item Value Reference Range Comments WHITE BLOOD CELL COUNT (BEAKER) (test vrak=489) 6.1 K/ L 3.5-10.5 RED BLOOD CELL COUNT (BEAKER) (test cedg=054) 2.80 M/ L 3.93-5.22 HEMOGLOBIN (BEAKER) (test yhmq=716) 9.4 GM/DL 11.2-15.7 HEMATOCRIT (BEAKER) (test ffyh=903) 30.3 % 34.1-44.9 MEAN CORPUSCULAR VOLUME (BEAKER) (test uaaq=905) 108.2 fL 79.4-94.8 MEAN CORPUSCULAR HEMOGLOBIN (BEAKER) (test wphu=028) 33.6 pg 25.6-32.2 MEAN CORPUSCULAR HEMOGLOBIN CONC (BEAKER) (test vdfm=578) 31.0 GM/DL 32.2- 35.5 RED CELL DISTRIBUTION WIDTH (BEAKER) (test jhnn=878) 15.4 % 11.7-14.4 PLATELET COUNT (BEAKER) (test gevz=606) 203 K/CU MM 150-450 MEAN PLATELET VOLUME (BEAKER) (test vaen=845) 8.2 fL 9.4-12.3 NUCLEATED RED BLOOD CELLS (BEAKER) (test ifez=060) 0 /100 WBC 0-0 NEUTROPHILS RELATIVE PERCENT (BEAKER) (test poex=271) 47 % LYMPHOCYTES RELATIVE PERCENT (BEAKER) (test pgwu=312) 43 % MONOCYTES RELATIVE PERCENT (BEAKER) (test ldne=585) 8 % EOSINOPHILS RELATIVE PERCENT (BEAKER) (test kyfi=096) 2 % BASOPHILS RELATIVE PERCENT (BEAKER) (test ybsq=338) 1 % NEUTROPHILS ABSOLUTE COUNT (BEAKER) (test mjdz=081) 2.84 K/ L 1.56-6.13 LYMPHOCYTES ABSOLUTE COUNT (BEAKER) (test kifz=616) 2.58 K/ L 1.18-3.74 MONOCYTES ABSOLUTE COUNT (BEAKER) (test gaiy=663) 0.49 K/ L 0.24-0.36 EOSINOPHILS ABSOLUTE COUNT (BEAKER) (test kpwl=949) 0.10 K/ L 0.04-0.36 BASOPHILS ABSOLUTE COUNT (BEAKER) (test urdw=654) 0.03 K/ L 0.01-0.08 IMMATURE GRANULOCYTES-RELATIVE PERCENT (BEAKER) (test nkfc=8824) 0 % 0-1 (MANUAL DIFFERENTIAL)2017-05-19 11:29:00* Test Item Value Reference Range Comments TOTAL COUNTED (BEAKER) (test vdut=5569) BASIC METABOLIC [id number] 10:32:00* Test Item Value Reference Range Comments SODIUM (BEAKER) (test lmwf=160) 140 meq/L 136-145 POTASSIUM (BEAKER) (test lhot=930) 5.4 meq/L 3.5-5.1 CHLORIDE (BEAKER) (test cuiu=412) 96 meq/L 98-107 CO2 (BEAKER) (test zwvj=475) 31 meq/L 22-29 BLOOD UREA NITROGEN (BEAKER) (test glny=280) 49 mg/dL 7-21 CREATININE (BEAKER) (test jlnq=603) 3.28 mg/dL 0.57-1.25 GLUCOSE RANDOM (BEAKER) (test ckda=605) 134 mg/dL 70-105 CALCIUM (BEAKER) (test cfom=404) 9.7 mg/dL 8.4-10.2 EGFR (BEAKER) (test akyb=1653) 14 mL/min/1.73 sq m ESTIMATED GFR IS NOT ACCURATE CREATININE CLEARANCE IN PREDICTING GLOMERULAR FILTRATION RATE. ESTIMATED GFR IS NOT APPLICABLE FOR DIALYSIS PATIENTS. TACROLIMUS [id number] 13:27:00* Test Item Value Reference Range Comments TACROLIMUS BLOOD (BEAKER) (test hthq=981) 4.4 ng/mL 10.0-20.0 CBC W/PLT COUNT & AUTO [id number] 12:05:00* Test Item Value Reference Range Comments WHITE BLOOD CELL COUNT (BEAKER) (test hdwo=556) 6.3 K/ L 3.5-10.5 RED BLOOD CELL COUNT (BEAKER) (test ftcv=419) 2.46 M/ L 3.93-5.22 HEMOGLOBIN (BEAKER) (test huli=829) 7.4 GM/DL 11.2-15.7 HEMATOCRIT (BEAKER) (test yzmu=755) 22.8 % 34.1-44.9 MEAN CORPUSCULAR VOLUME (BEAKER) (test pqzn=571) 92.7 fL 79.4-94.8 MEAN CORPUSCULAR HEMOGLOBIN (BEAKER) (test gfeq=776) 30.1 pg 25.6-32.2 MEAN CORPUSCULAR HEMOGLOBIN CONC (BEAKER) (test zbvp=007) 32.5 GM/DL 32.2- 35.5 RED CELL DISTRIBUTION WIDTH (BEAKER) (test tzhk=092) 14.7 % 11.7-14.4 PLATELET COUNT (BEAKER) (test jmoq=362) 240 K/CU MM 150-450 MEAN PLATELET VOLUME (BEAKER) (test gape=832) 8.9 fL 9.4-12.3 NUCLEATED RED BLOOD CELLS (BEAKER) (test dimd=863) 0 /100 WBC 0-0 NEUTROPHILS RELATIVE PERCENT (BEAKER) (test gkqk=400) 46 % LYMPHOCYTES RELATIVE PERCENT (BEAKER) (test gdcj=921) 37 % MONOCYTES RELATIVE PERCENT (BEAKER) (test fayo=214) 13 % EOSINOPHILS RELATIVE PERCENT (BEAKER) (test stak=791) 3 % BASOPHILS RELATIVE PERCENT (BEAKER) (test twuv=990) 0 % NEUTROPHILS ABSOLUTE COUNT (BEAKER) (test lnwk=035) 2.91 K/ L 1.56-6.13 LYMPHOCYTES ABSOLUTE COUNT (BEAKER) (test mbsy=129) 2.32 K/ L 1.18-3.74 MONOCYTES ABSOLUTE COUNT (BEAKER) (test kdjw=519) 0.84 K/ L 0.24-0.36 EOSINOPHILS ABSOLUTE COUNT (BEAKER) (test kifn=415) 0.17 K/ L 0.04-0.36 BASOPHILS ABSOLUTE COUNT (BEAKER) (test hkaw=113) 0.02 K/ L 0.01-0.08 IMMATURE GRANULOCYTES-RELATIVE PERCENT (BEAKER) (test fnva=4082) 1 % 0-1 TACROLIMUS [id number] 11:56:00* Test Item Value Reference Range Comments TACROLIMUS BLOOD (BEAKER) (test smks=326) 5.4 ng/mL 10.0-20.0 HEMOGLOBIN [id number] 11:38:00* Test Item Value Reference Range Comments HEMOGLOBIN A1C (BEAKER) (test hvxq=628) 6.2 % 4.3-6.1 BASIC METABOLIC [id number] 10:51:00* Test Item Value Reference Range Comments SODIUM (BEAKER) (test egbw=824) 133 meq/L 136-145 POTASSIUM (BEAKER) (test bjlu=575) 5.8 meq/L 3.5-5.1 CHLORIDE (BEAKER) (test uryf=547) 96 meq/L 98-107 CO2 (BEAKER) (test lksz=214) 24 meq/L 22-29 BLOOD UREA NITROGEN (BEAKER) (test tvck=976) 61 mg/dL 7-21 CREATININE (BEAKER) (test grre=503) 5.81 mg/dL 0.57-1.25 GLUCOSE RANDOM (BEAKER) (test jalk=793) 115 mg/dL 70-105 CALCIUM (BEAKER) (test ryag=792) 9.2 mg/dL 8.4-10.2 EGFR (BEAKER) (test smvs=4675) 7 mL/min/1.73 sq m ESTIMATED GFR IS NOT ACCURATE CREATININE CLEARANCE IN PREDICTING GLOMERULAR FILTRATION RATE. ESTIMATED GFR IS NOT APPLICABLE FOR DIALYSIS PATIENTS. LIPID [id number] 10:47:00* Test Item Value Reference Range Comments TRIGLYCERIDES (BEAKER) (test zqmf=813) 126 mg/dL CHOLESTEROL (BEAKER) (test qcob=724) 152 mg/dL HDL CHOLESTEROL (BEAKER) (test hvyo=344) 33 mg/dL LDL CHOLESTEROL CALCULATED (BEAKER) (test ummm=383) 94 mg/dL Triglyceride Reference Range: Low Risk <150 Borderline 150-199 High Risk 200-499 Very High Risk >=500Cholesterol Reference Range: Low Risk <200 Borderline 200-239 High Risk >240HDL Cholesterol Reference Range: Low Risk >=60 High Risk <40LDL Cholesterol Reference Range: Optimal <100 Near Optimal 100-129 Borderline 130-159 High 160-189 Very High >=190 HEPATIC FUNCTION [id number] 10:47:00* Test Item Value Reference Range Comments TOTAL PROTEIN (BEAKER) (test pkmh=082) 6.3 gm/dL 6.0-8.3 ALBUMIN (BEAKER) (test bqoz=3244) 3.3 g/dL 3.5-5.0 BILIRUBIN TOTAL (BEAKER) (test eisj=280) 0.5 mg/dL 0.2-1.2 BILIRUBIN DIRECT (BEAKER) (test wneg=866) 0.2 mg/dL 0.1-0.5 ALKALINE PHOSPHATASE (BEAKER) (test mfjy=760) 89 U/L 40-150 AST (SGOT) (BEAKER) (test srtk=140) 38 U/L 5-34 ALT (SGPT) (BEAKER) (test zzai=327) 20 U/L 6-55 POCT-GLUCOSE [id number] 12:56:00* Test Item Value Reference Range Comments POC-GLUCOSE METER (BEAKER) (test wiiz=4221) 168 mg/dL 70-110 TESTED AT [facility] [address] [facility] [address] TACROLIMUS [id number] 09:39:00* Test Item Value Reference Range Comments TACROLIMUS BLOOD (BEAKER) (test eglj=324) 6.8 ng/mL 10.0-20.0 POCT-GLUCOSE [id number] 09:00:00* Test Item Value Reference Range Comments POC-GLUCOSE METER (BEAKER) (test iayb=6759) 130 mg/dL 70-110 TESTED AT [place] [id number] [facility] [address] CBC W/PLT COUNT & AUTO [id number] 08:57:00* Test Item Value Reference Range Comments WHITE BLOOD CELL COUNT (BEAKER) (test wyno=344) 7.5 K/ L 4.0-10.0 RED BLOOD CELL COUNT (BEAKER) (test hcqk=105) 2.82 M/ L 4.00-5.00 HEMOGLOBIN (BEAKER) (test seww=330) 8.8 GM/DL 12.0-15.0 HEMATOCRIT (BEAKER) (test jiun=401) 27.3 % 36.0-45.0 MEAN CORPUSCULAR VOLUME (BEAKER) (test hyfm=184) 96.9 fL 82.0-99.0 MEAN CORPUSCULAR HEMOGLOBIN (BEAKER) (test ncop=075) 31.2 pg 27.0-33.0 MEAN CORPUSCULAR HEMOGLOBIN CONC (BEAKER) (test wdxz=802) 32.1 GM/DL 32.0- 36.0 RED CELL DISTRIBUTION WIDTH (BEAKER) (test nkmw=620) 12.6 % 10.3-14.2 PLATELET COUNT (BEAKER) (test xyrq=737) 158 K/CU MM 150-430 MEAN PLATELET VOLUME (BEAKER) (test gesf=471) 6.6 fL 6.5-10.5 NUCLEATED RED BLOOD CELLS (BEAKER) (test ayse=656) 0 /100 WBC 0-0 NEUTROPHILS RELATIVE PERCENT (BEAKER) (test kzvi=570) 53 % LYMPHOCYTES RELATIVE PERCENT (BEAKER) (test weki=772) 34 % MONOCYTES RELATIVE PERCENT (BEAKER) (test dufk=348) 8 % EOSINOPHILS RELATIVE PERCENT (BEAKER) (test lxqi=478) 4 % BASOPHILS RELATIVE PERCENT (BEAKER) (test adrd=776) 1 % NEUTROPHILS ABSOLUTE COUNT (BEAKER) (test urwk=859) 3.97 K/ L 1.80-8.00 LYMPHOCYTES ABSOLUTE COUNT (BEAKER) (test qtmg=859) 2.55 K/ L 1.48-4.50 MONOCYTES ABSOLUTE COUNT (BEAKER) (test aqek=038) 0.59 K/ L 0.00-1.30 EOSINOPHILS ABSOLUTE COUNT (BEAKER) (test ugts=741) 0.27 K/ L 0.00-0.50 BASOPHILS ABSOLUTE COUNT (BEAKER) (test mwps=047) 0.08 K/ L 0.00-0.20 0.00BASIC METABOLIC [id number] 06:36:00* Test Item Value Reference Range Comments SODIUM (BEAKER) (test fpby=362) 137 meq/L 136-145 POTASSIUM (BEAKER) (test vryb=321) 4.0 meq/L 3.5-5.1 CHLORIDE (BEAKER) (test btxh=851) 99 meq/L 98-107 CO2 (BEAKER) (test bxnj=720) 28 meq/L 22-29 BLOOD UREA NITROGEN (BEAKER) (test pfws=758) 35 mg/dL 7-21 CREATININE (BEAKER) (test lqfg=688) 3.84 mg/dL 0.57-1.25 GLUCOSE RANDOM (BEAKER) (test yvbh=624) 104 mg/dL 70-105 CALCIUM (BEAKER) (test xatd=088) 8.6 mg/dL 8.4-10.2 EGFR (BEAKER) (test sjlq=2998) 12 mL/min/1.73 sq m ESTIMATED GFR IS NOT ACCURATE CREATININE CLEARANCE IN PREDICTING GLOMERULAR FILTRATION RATE. ESTIMATED GFR IS NOT APPLICABLE FOR DIALYSIS PATIENTS. [id number] 06:35:00* Test Item Value Reference Range Comments PHOSPHORUS (BEAKER) (test nrtr=511) 2.6 mg/dL 2.3-4.7 [id number] 06:35:00* Test Item Value Reference Range Comments MAGNESIUM (BEAKER) (test zolp=854) 1.7 mg/dL 1.6-2.6 POCT-GLUCOSE [id number] 21:00:00* Test Item Value Reference Range Comments POC-GLUCOSE METER (BEAKER) (test tumh=4742) 147 mg/dL 70-110 TESTED AT [facility] [address] [address] POCT-GLUCOSE [id number] 17:46:00* Test Item Value Reference Range Comments POC-GLUCOSE METER (BEAKER) (test hzqj=0759) 236 mg/dL 70-110 TESTED AT [address] [address] TACROLIMUS [id number] 10:16:00* Test Item Value Reference Range Comments TACROLIMUS BLOOD (BEAKER) (test jmce=743) 4.9 ng/mL 10.0-20.0 POCT-GLUCOSE [id number] 09:21:00* Test Item Value Reference Range Comments POC-GLUCOSE METER (BEAKER) (test zzre=6803) 132 mg/dL 70-110 TESTED AT [address] [address] CBC W/PLT COUNT & AUTO [id number] 07:05:00* Test Item Value Reference Range Comments WHITE BLOOD CELL COUNT (BEAKER) (test lxql=235) 8.8 K/ L 4.0-10.0 RED BLOOD CELL COUNT (BEAKER) (test hfep=918) 2.84 M/ L 4.00-5.00 HEMOGLOBIN (BEAKER) (test pyvr=260) 8.8 GM/DL 12.0-15.0 HEMATOCRIT (BEAKER) (test trlk=271) 27.3 % 36.0-45.0 MEAN CORPUSCULAR VOLUME (BEAKER) (test zjnf=901) 96.0 fL 82.0-99.0 MEAN CORPUSCULAR HEMOGLOBIN (BEAKER) (test yukz=714) 31.0 pg 27.0-33.0 MEAN CORPUSCULAR HEMOGLOBIN CONC (BEAKER) (test xdky=772) 32.3 GM/DL 32.0- 36.0 RED CELL DISTRIBUTION WIDTH (BEAKER) (test pucn=433) 12.5 % 10.3-14.2 PLATELET COUNT (BEAKER) (test alak=936) 145 K/CU MM 150-430 MEAN PLATELET VOLUME (BEAKER) (test azlh=892) 6.5 fL 6.5-10.5 NUCLEATED RED BLOOD CELLS (BEAKER) (test xcpk=754) 0 /100 WBC 0-0 NEUTROPHILS RELATIVE PERCENT (BEAKER) (test lbrw=008) 54 % LYMPHOCYTES RELATIVE PERCENT (BEAKER) (test wasc=316) 32 % MONOCYTES RELATIVE PERCENT (BEAKER) (test trgg=478) 10 % EOSINOPHILS RELATIVE PERCENT (BEAKER) (test sqgq=531) 4 % BASOPHILS RELATIVE PERCENT (BEAKER) (test rsqr=037) 0 % NEUTROPHILS ABSOLUTE COUNT (BEAKER) (test eigw=332) 4.72 K/ L 1.80-8.00 LYMPHOCYTES ABSOLUTE COUNT (BEAKER) (test nsie=212) 2.80 K/ L 1.48-4.50 MONOCYTES ABSOLUTE COUNT (BEAKER) (test jqrc=627) 0.91 K/ L 0.00-1.30 EOSINOPHILS ABSOLUTE COUNT (BEAKER) (test nlzo=036) 0.32 K/ L 0.00-0.50 BASOPHILS ABSOLUTE COUNT (BEAKER) (test vvry=569) 0.02 K/ L 0.00-0.20 0.00BASIC METABOLIC [id number] 06:50:00* Test Item Value Reference Range Comments SODIUM (BEAKER) (test ihok=838) 136 meq/L 136-145 POTASSIUM (BEAKER) (test bfya=564) 3.8 meq/L 3.5-5.1 CHLORIDE (BEAKER) (test zcal=448) 101 meq/L 98-107 CO2 (BEAKER) (test mfpg=667) 25 meq/L 22-29 BLOOD UREA NITROGEN (BEAKER) (test venq=958) 24 mg/dL 7-21 CREATININE (BEAKER) (test ovxp=231) 2.89 mg/dL 0.57-1.25 GLUCOSE RANDOM (BEAKER) (test tqff=834) 152 mg/dL 70-105 CALCIUM (BEAKER) (test vjwd=300) 8.5 mg/dL 8.4-10.2 EGFR (BEAKER) (test aids=3833) 17 mL/min/1.73 sq m ESTIMATED GFR IS NOT ACCURATE CREATININE CLEARANCE IN PREDICTING GLOMERULAR FILTRATION RATE. ESTIMATED GFR IS NOT APPLICABLE FOR DIALYSIS PATIENTS. [id number] 06:49:00* Test Item Value Reference Range Comments PHOSPHORUS (BEAKER) (test lozh=217) 1.8 mg/dL 2.3-4.7 [id number] 06:49:00* Test Item Value Reference Range Comments MAGNESIUM (BEAKER) (test aqdg=081) 1.8 mg/dL 1.6-2.6 CALCIUM, [id number] 06:44:00* Test Item Value Reference Range Comments CALCIUM IONIZED (BEAKER) (test bdqw=498) 0.92 mmol/L 1.12-1.27 PH, BLOOD (BEAKER) (test cnmx=0305) 7.55 POCT-GLUCOSE [id number] 21:19:00* Test Item Value Reference Range Comments POC-GLUCOSE METER (BEAKER) (test ihry=0915) 197 mg/dL 70-110 TESTED AT [address] [address] POCT-GLUCOSE [id number] 18:18:00* Test Item Value Reference Range Comments POC-GLUCOSE METER (BEAKER) (test nfck=7559) 199 mg/dL 70-110 TESTED AT [address] [address] POCT-GLUCOSE [id number] 11:48:00* Test Item Value Reference Range Comments POC-GLUCOSE METER (BEAKER) (test krig=4819) 187 mg/dL 70-110 TESTED AT [address] [address] TACROLIMUS [id number] 10:32:00* Test Item Value Reference Range Comments TACROLIMUS BLOOD (BEAKER) (test anln=242) 5.8 ng/mL 10.0-20.0 HEMOGLOBIN [id number] 08:28:00* Test Item Value Reference Range Comments HEMOGLOBIN A1C (BEAKER) (test evwe=823) 6.2 % 4.3-6.1 POCT-GLUCOSE [id number] 08:17:00* Test Item Value Reference Range Comments POC-GLUCOSE METER (BEAKER) (test alfs=4526) 119 mg/dL 70-110 TESTED AT [address] [address] BASIC METABOLIC [id number] 07:03:00* Test Item Value Reference Range Comments SODIUM (BEAKER) (test qcvf=709) 137 meq/L 136-145 POTASSIUM (BEAKER) (test haed=265) 4.3 meq/L 3.5-5.1 CHLORIDE (BEAKER) (test fmuw=486) 102 meq/L 98-107 CO2 (BEAKER) (test loza=652) 26 meq/L 22-29 BLOOD UREA NITROGEN (BEAKER) (test fhvp=955) 40 mg/dL 7-21 CREATININE (BEAKER) (test wajc=339) 4.48 mg/dL 0.57-1.25 GLUCOSE RANDOM (BEAKER) (test wxzb=691) 105 mg/dL 70-105 CALCIUM (BEAKER) (test mztt=568) 8.3 mg/dL 8.4-10.2 EGFR (BEAKER) (test krhy=5021) 10 mL/min/1.73 sq m ESTIMATED GFR IS NOT ACCURATE CREATININE CLEARANCE IN PREDICTING GLOMERULAR FILTRATION RATE. ESTIMATED GFR IS NOT APPLICABLE FOR DIALYSIS PATIENTS. [id number] 07:01:00* Test Item Value Reference Range Comments PHOSPHORUS (BEAKER) (test oaqy=701) 3.8 mg/dL 2.3-4.7 [id number] 07:01:00* Test Item Value Reference Range Comments MAGNESIUM (BEAKER) (test pjsn=542) 2.1 mg/dL 1.6-2.6 LIPID [id number] 07:01:00* Test Item Value Reference Range Comments TRIGLYCERIDES (BEAKER) (test owcy=365) 104 mg/dL CHOLESTEROL (BEAKER) (test fyvo=745) 145 mg/dL HDL CHOLESTEROL (BEAKER) (test bqzr=489) 39 mg/dL LDL CHOLESTEROL CALCULATED (BEAKER) (test aszu=200) 85 mg/dL Triglyceride Reference Range: Low Risk <150 Borderline 150-199 High Risk 200-499 Very High Risk >=500Cholesterol Reference Range: Low Risk <200 Borderline 200-239 High Risk >240HDL Cholesterol Reference Range: Low Risk >=60 High Risk <40LDL Cholesterol Reference Range: Optimal <100 Near Optimal 100-129 Borderline 130-159 High 160-189 Very High >=190 HEPATIC FUNCTION [id number] 07:01:00* Test Item Value Reference Range Comments TOTAL PROTEIN (BEAKER) (test svpu=375) 5.4 gm/dL 6.0-8.3 ALBUMIN (BEAKER) (test fhjg=4018) 2.8 g/dL 3.5-5.0 BILIRUBIN TOTAL (BEAKER) (test yjrq=991) 0.3 mg/dL 0.2-1.2 BILIRUBIN DIRECT (BEAKER) (test uasn=635) 0.1 mg/dL 0.1-0.5 ALKALINE PHOSPHATASE (BEAKER) (test xmqs=105) 62 U/L 40-150 AST (SGOT) (BEAKER) (test yfoo=185) 30 U/L 5-34 ALT (SGPT) (BEAKER) (test scdn=155) 20 U/L 6-55 CALCIUM, [id number] 06:42:00* Test Item Value Reference Range Comments CALCIUM IONIZED (BEAKER) (test ykzo=748) 1.05 mmol/L 1.12-1.27 PH, BLOOD (BEAKER) (test uihg=6327) 7.40 CBC W/PLT COUNT & AUTO [id number] 06:38:00* Test Item Value Reference Range Comments WHITE BLOOD CELL COUNT (BEAKER) (test agna=033) 7.7 K/ L 4.0-10.0 RED BLOOD CELL COUNT (BEAKER) (test hmvr=854) 2.51 M/ L 4.00-5.00 HEMOGLOBIN (BEAKER) (test dqrw=062) 7.5 GM/DL 12.0-15.0 HEMATOCRIT (BEAKER) (test uxsy=779) 24.4 % 36.0-45.0 MEAN CORPUSCULAR VOLUME (BEAKER) (test oitm=964) 97.2 fL 82.0-99.0 MEAN CORPUSCULAR HEMOGLOBIN (BEAKER) (test zrng=140) 29.8 pg 27.0-33.0 MEAN CORPUSCULAR HEMOGLOBIN CONC (BEAKER) (test ahma=283) 30.6 GM/DL 32.0- 36.0 RED CELL DISTRIBUTION WIDTH (BEAKER) (test ohae=809) 13.8 % 10.3-14.2 PLATELET COUNT (BEAKER) (test xdht=497) 158 K/CU MM 150-430 MEAN PLATELET VOLUME (BEAKER) (test gnrt=409) 6.5 fL 6.5-10.5 NUCLEATED RED BLOOD CELLS (BEAKER) (test ymxu=245) 0 /100 WBC 0-0 NEUTROPHILS RELATIVE PERCENT (BEAKER) (test uvwd=944) 55 % LYMPHOCYTES RELATIVE PERCENT (BEAKER) (test nlwb=592) 32 % MONOCYTES RELATIVE PERCENT (BEAKER) (test meqk=075) 8 % EOSINOPHILS RELATIVE PERCENT (BEAKER) (test ftxa=635) 4 % BASOPHILS RELATIVE PERCENT (BEAKER) (test oxzi=506) 1 % NEUTROPHILS ABSOLUTE COUNT (BEAKER) (test bygq=416) 4.19 K/ L 1.80-8.00 LYMPHOCYTES ABSOLUTE COUNT (BEAKER) (test otdw=642) 2.46 K/ L 1.48-4.50 MONOCYTES ABSOLUTE COUNT (BEAKER) (test xuvl=489) 0.61 K/ L 0.00-1.30 EOSINOPHILS ABSOLUTE COUNT (BEAKER) (test bygq=131) 0.33 K/ L 0.00-0.50 BASOPHILS ABSOLUTE COUNT (BEAKER) (test eheu=950) 0.09 K/ L 0.00-0.20 0.00POCT-GLUCOSE [id number] 21:20:00* Test Item Value Reference Range Comments POC-GLUCOSE METER (BEAKER) (test dcdw=9156) 124 mg/dL 70-110 TESTED AT [facility] [address] [address] POCT-GLUCOSE [id number] 17:39:00* Test Item Value Reference Range Comments POC-GLUCOSE METER (BEAKER) (test jauh=5280) 172 mg/dL 70-110 TESTED AT [facility] [address] [address] CMV PCR, [id number] 14:25:00* Test Item Value Reference Range Comments CMV VIRAL LOAD - NEGATIVE (BEAKER) (test czdj=3384) Negative or below the linear range of the assay (<375 copies/mL) Cytomegalovirus (CMV) infection can cause significant disease in immunosuppressed patients. However, it is common for CMV to manifest as a limited infection which is of no clinical significance in immunosuppressed patients or in healthy individuals.Viral load measurements are helpful to identify clinical CMV infection and to guide the pre-emptive management of antiviral therapy. For treatment of CMV infection due to reactivation in transplant recipients, a threshold between 4,000 and 5,000 copies/mL is suggested. For treatment of primary CMV infection, a lower threshold can be used.CMV infection may also be monitored using weekly serial measurements. Serial measurements of CMV DNA viral load can be evaluated by identifying a 10- fold change, as well as assessing the CMV DNA viral load and the clinical context for each patient.The plasma CMV DNA viral load was detected using quantitative polymerase chain reaction and fluorescent monitoring of a specific hybridized probe. Genetic variation and other factors can affect the accuracy of nucleic acid testing. Therefore, the results should be interpreted in light of clinical data. A negative result may not exclude the presence of CMV disease.This test was developed and its performance characteristics determined by the [facility] Pathology Department, Section of Molecular Pathology. It has not been cleared or approved by the U.S. Food and Drug Administration (FDA), since FDA approval is not required for clinical use of the test. Validation was done as required by The Clinical Laboratory Improvement Amendments of 1988.POCT-GLUCOSE [id number] 12:30:00* Test Item Value Reference Range Comments POC-GLUCOSE METER (BEAKER) (test agwr=7657) 179 mg/dL 70-110 TESTED AT [address] [address] [place] [id number] 10:14:00* Test Item Value Reference Range Comments TACROLIMUS BLOOD (BEAKER) (test ozmx=833) 6.4 ng/mL 10.0-20.0 POCT-GLUCOSE [id number] 08:30:00* Test Item Value Reference Range Comments POC-GLUCOSE METER (BEAKER) (test tcwq=8826) 113 mg/dL 70-110 TESTED AT [address] [address] CBC W/PLT COUNT & AUTO [id number] 06:17:00* Test Item Value Reference Range Comments WHITE BLOOD CELL COUNT (BEAKER) (test nghd=082) 8.3 K/ L 4.0-10.0 RED BLOOD CELL COUNT (BEAKER) (test tlyy=131) 2.57 M/ L 4.00-5.00 HEMOGLOBIN (BEAKER) (test zall=707) 8.0 GM/DL 12.0-15.0 HEMATOCRIT (BEAKER) (test icry=473) 24.8 % 36.0-45.0 MEAN CORPUSCULAR VOLUME (BEAKER) (test qynx=446) 96.5 fL 82.0-99.0 MEAN CORPUSCULAR HEMOGLOBIN (BEAKER) (test njio=180) 30.9 pg 27.0-33.0 MEAN CORPUSCULAR HEMOGLOBIN CONC (BEAKER) (test wvuk=972) 32.1 GM/DL 32.0- 36.0 RED CELL DISTRIBUTION WIDTH (BEAKER) (test uzhj=706) 12.2 % 10.3-14.2 PLATELET COUNT (BEAKER) (test wuuc=302) 160 K/CU MM 150-430 MEAN PLATELET VOLUME (BEAKER) (test ebth=388) 6.4 fL 6.5-10.5 NUCLEATED RED BLOOD CELLS (BEAKER) (test urkh=482) 0 /100 WBC 0-0 NEUTROPHILS RELATIVE PERCENT (BEAKER) (test pxrm=415) 57 % LYMPHOCYTES RELATIVE PERCENT (BEAKER) (test ufhz=628) 30 % MONOCYTES RELATIVE PERCENT (BEAKER) (test vyvx=454) 8 % EOSINOPHILS RELATIVE PERCENT (BEAKER) (test pcwc=052) 3 % BASOPHILS RELATIVE PERCENT (BEAKER) (test jdst=383) 0 % NEUTROPHILS ABSOLUTE COUNT (BEAKER) (test jxva=481) 4.76 K/ L 1.80-8.00 LYMPHOCYTES ABSOLUTE COUNT (BEAKER) (test xeqc=779) 2.51 K/ L 1.48-4.50 MONOCYTES ABSOLUTE COUNT (BEAKER) (test bxgg=195) 0.70 K/ L 0.00-1.30 EOSINOPHILS ABSOLUTE COUNT (BEAKER) (test qiwl=912) 0.29 K/ L 0.00-0.50 BASOPHILS ABSOLUTE COUNT (BEAKER) (test nnrm=851) 0.03 K/ L 0.00-0.20 0.00CALCIUM, [id number] 06:13:00* Test Item Value Reference Range Comments CALCIUM IONIZED (BEAKER) (test hgkm=868) 0.80 mmol/L 1.12-1.27 PH, BLOOD (BEAKER) (test tqrt=7347) 7.45 [id number] 06:06:00* Test Item Value Reference Range Comments PHOSPHORUS (BEAKER) (test szbj=658) 3.4 mg/dL 2.3-4.7 [id number] 06:06:00* Test Item Value Reference Range Comments MAGNESIUM (BEAKER) (test famz=907) 2.4 mg/dL 1.6-2.6 BASIC METABOLIC [id number] 06:06:00* Test Item Value Reference Range Comments SODIUM (BEAKER) (test xrlz=200) 139 meq/L 136-145 POTASSIUM (BEAKER) (test wvff=149) 4.0 meq/L 3.5-5.1 CHLORIDE (BEAKER) (test kenn=295) 104 meq/L 98-107 CO2 (BEAKER) (test ixdy=639) 26 meq/L 22-29 BLOOD UREA NITROGEN (BEAKER) (test krdd=050) 27 mg/dL 7-21 CREATININE (BEAKER) (test uzcc=533) 3.34 mg/dL 0.57-1.25 GLUCOSE RANDOM (BEAKER) (test kptv=241) 104 mg/dL 70-105 CALCIUM (BEAKER) (test hlbp=083) 8.3 mg/dL 8.4-10.2 EGFR (BEAKER) (test dwab=4824) 14 mL/min/1.73 sq m ESTIMATED GFR IS NOT ACCURATE CREATININE CLEARANCE IN PREDICTING GLOMERULAR FILTRATION RATE. ESTIMATED GFR IS NOT APPLICABLE FOR DIALYSIS PATIENTS. POCT-GLUCOSE [id number] 22:40:00* Test Item Value Reference Range Comments POC-GLUCOSE METER (BEAKER) (test mgdw=0955) 109 mg/dL 70-110 TESTED AT [address] [address] POCT-GLUCOSE [id number] 18:16:00* Test Item Value Reference Range Comments POC-GLUCOSE METER (BEAKER) (test nacq=0889) 120 mg/dL 70-110 TESTED AT [address] [address] HGB/HCT (H&H) - STAT [id number] 16:18:00* Test Item Value Reference Range Comments HEMOGLOBIN (BEAKER) (test daav=592) 7.3 g/dL 12.0-15.0 HEMATOCRIT (BEAKER) (test sbcp=253) 21.0 % 36.0-45.0 GLUCOSE-STAT [id number] 16:16:00* Test Item Value Reference Range Comments GLUCOSE RANDOM (BEAKER) (test edzk=596) 96 mg/dL 70-110 POTASSIUM-STAT [id number] 16:16:00* Test Item Value Reference Range Comments POTASSIUM (BEAKER) (test jejp=048) 3.5 meq/L 3.6-5.5 POCT-GLUCOSE [id number] 13:30:00* Test Item Value Reference Range Comments POC-GLUCOSE METER (BEAKER) (test opwo=0174) 119 mg/dL 70-110 TESTED AT [facility] [address] [address] [place] [id number] 12:17:00* Test Item Value Reference Range Comments TACROLIMUS BLOOD (BEAKER) (test aquc=262) 7.0 ng/mL 10.0-20.0 POCT-GLUCOSE [id number] 09:06:00* Test Item Value Reference Range Comments POC-GLUCOSE METER (BEAKER) (test ssqo=1501) 89 mg/dL 70-110 TESTED AT [facility] [address] [address] CBC W/PLT COUNT & AUTO [id number] 07:53:00* Test Item Value Reference Range Comments WHITE BLOOD CELL COUNT (BEAKER) (test gwnw=989) 7.9 K/ L 4.0-10.0 RED BLOOD CELL COUNT (BEAKER) (test jjpz=473) 2.78 M/ L 4.00-5.00 HEMOGLOBIN (BEAKER) (test rsnm=868) 8.6 GM/DL 12.0-15.0 HEMATOCRIT (BEAKER) (test sbzk=576) 26.5 % 36.0-45.0 MEAN CORPUSCULAR VOLUME (BEAKER) (test tefi=008) 95.4 fL 82.0-99.0 MEAN CORPUSCULAR HEMOGLOBIN (BEAKER) (test jpma=025) 30.9 pg 27.0-33.0 MEAN CORPUSCULAR HEMOGLOBIN CONC (BEAKER) (test hfht=392) 32.4 GM/DL 32.0- 36.0 RED CELL DISTRIBUTION WIDTH (BEAKER) (test glze=288) 13.7 % 10.3-14.2 PLATELET COUNT (BEAKER) (test asqe=871) 171 K/CU MM 150-430 MEAN PLATELET VOLUME (BEAKER) (test fihc=201) 6.9 fL 6.5-10.5 NUCLEATED RED BLOOD CELLS (BEAKER) (test drxn=727) 0 /100 WBC 0-0 NEUTROPHILS RELATIVE PERCENT (BEAKER) (test zkvt=346) 58 % LYMPHOCYTES RELATIVE PERCENT (BEAKER) (test liup=483) 30 % MONOCYTES RELATIVE PERCENT (BEAKER) (test flbn=274) 8 % EOSINOPHILS RELATIVE PERCENT (BEAKER) (test nujo=052) 4 % BASOPHILS RELATIVE PERCENT (BEAKER) (test bgoz=247) 1 % NEUTROPHILS ABSOLUTE COUNT (BEAKER) (test itlz=790) 4.52 K/ L 1.80-8.00 LYMPHOCYTES ABSOLUTE COUNT (BEAKER) (test ghjg=211) 2.34 K/ L 1.48-4.50 MONOCYTES ABSOLUTE COUNT (BEAKER) (test xbmz=751) 0.65 K/ L 0.00-1.30 EOSINOPHILS ABSOLUTE COUNT (BEAKER) (test nlna=747) 0.31 K/ L 0.00-0.50 BASOPHILS ABSOLUTE COUNT (BEAKER) (test iofh=122) 0.05 K/ L 0.00-0.20 0.00CALCIUM, [id number] 07:05:00* Test Item Value Reference Range Comments CALCIUM IONIZED (BEAKER) (test nytb=785) 0.97 mmol/L 1.12-1.27 PH, BLOOD (BEAKER) (test pmrn=5605) 7.49 BASIC METABOLIC [id number] 06:52:00* Test Item Value Reference Range Comments SODIUM (BEAKER) (test pzak=651) 137 meq/L 136-145 POTASSIUM (BEAKER) (test jpqp=765) 3.7 meq/L 3.5-5.1 CHLORIDE (BEAKER) (test qqwj=755) 102 meq/L 98-107 CO2 (BEAKER) (test ujbz=413) 26 meq/L 22-29 BLOOD UREA NITROGEN (BEAKER) (test jyck=583) 18 mg/dL 7-21 CREATININE (BEAKER) (test vktj=325) 2.09 mg/dL 0.57-1.25 GLUCOSE RANDOM (BEAKER) (test rhoh=212) 77 mg/dL 70-105 CALCIUM (BEAKER) (test ajiw=941) 8.2 mg/dL 8.4-10.2 EGFR (BEAKER) (test ipyv=3780) 24 mL/min/1.73 sq m ESTIMATED GFR IS NOT ACCURATE CREATININE CLEARANCE IN PREDICTING GLOMERULAR FILTRATION RATE. ESTIMATED GFR IS NOT APPLICABLE FOR DIALYSIS PATIENTS. [id number] 06:49:00* Test Item Value Reference Range Comments PHOSPHORUS (BEAKER) (test frbe=961) 1.6 mg/dL 2.3-4.7 [id number] 06:49:00* Test Item Value Reference Range Comments MAGNESIUM (BEAKER) (test agsp=864) 1.7 mg/dL 1.6-2.6 [id number] 06:44:00* Test Item Value Reference Range Comments PARTIAL THROMBOPLASTIN TIME (BEAKER) (test nlnd=167) 47.9 seconds 22.5-36.0 PROTHROMBIN [id number] 06:43:00* Test Item Value Reference Range Comments PROTIME (BEAKER) (test mdag=800) 13.8 seconds 11.7-14.7 INR (BEAKER) (test iwro=846) 1.1 <=5.9 RECOMMENDED COUMADIN/WARFARIN INR THERAPY RANGESSTANDARD DOSE: 2.0 - 3.0 Includes: PROPHYLAXIS for venous thrombosis, systemic embolization; TREATMENT for venous thrombosis and/or pulmonary embolus.HIGH RISK: Target INR is 2.5-3.5 for patients with mechanical heart valves.POCT-GLUCOSE [id number] 21:36:00 * Test Item Value Reference Range Comments POC-GLUCOSE METER (BEAKER) (test allo=1004) 177 mg/dL 70-110 TESTED AT [place] [address] POCT-GLUCOSE [id number] 16:55:00* Test Item Value Reference Range Comments POC-GLUCOSE METER (BEAKER) (test iape=0798) 202 mg/dL 70-110 TESTED AT [place] [address] POCT-GLUCOSE [id number] 14:40:00* Test Item Value Reference Range Comments POC-GLUCOSE METER (BEAKER) (test qqge=5569) 109 mg/dL 70-110 TESTED AT [place] [address] CLOSTRIDIUM DIFFICILE TOXIN [id number] 14:10:00* Test Item Value Reference Range Comments CLOSTRIDIUM DIFFICILE TOXIN, PCR (STRATUSCOREAKER) (test ftzx=4015) Not Detected Not Detected This qualitative real-time polymerase chain reaction assay detects the tcdB gene , encoded on the C.difficile pathogenicity locus (PaLoc). The product of tcdB, toxin B, is a cytotoxin essential for causing C.difficile-associated disease ( CDAD) and is found in virtually all toxigenic C.difficile.This assay is performed for patients suspected of having either community-acquired or nosocomial CDAD. Accordingly, only symptomatic patients should be tested and formed stools will be rejected unless ileus is present (i.e., specified when ordering). Patients may be colonized with toxigenic C.difficile strains not causing active disease; therefore, clinical correlation is needed when deciding how to manage patients with a positive test result.The assay has not been validated as a test of cure as amplifiable nucleic acid may persist after effective treatment; therefore, follow-up testing of a positive result is not recommended.TACROLIMUS [id number] 09:36:00* Test Item Value Reference Range Comments TACROLIMUS BLOOD (BEAKER) (test nwlh=950) 9.5 ng/mL 10.0-20.0 POCT-GLUCOSE [id number] 09:18:00* Test Item Value Reference Range Comments POC-GLUCOSE METER (BEAKER) (test eabg=9236) 102 mg/dL 70-110 TESTED AT [facility] [address] [address] BASIC METABOLIC [id number] 06:51:00* Test Item Value Reference Range Comments SODIUM (BEAKER) (test czkw=654) 138 meq/L 136-145 POTASSIUM (BEAKER) (test rure=765) 4.0 meq/L 3.5-5.1 CHLORIDE (BEAKER) (test dcoy=959) 109 meq/L 98-107 CO2 (BEAKER) (test nyzp=279) 19 meq/L 22-29 BLOOD UREA NITROGEN (BEAKER) (test qbbd=420) 47 mg/dL 7-21 CREATININE (BEAKER) (test amky=061) 3.65 mg/dL 0.57-1.25 GLUCOSE RANDOM (BEAKER) (test xtag=869) 107 mg/dL 70-105 CALCIUM (BEAKER) (test mxgf=561) 8.8 mg/dL 8.4-10.2 EGFR (BEAKER) (test pqjb=1937) 13 mL/min/1.73 sq m ESTIMATED GFR IS NOT ACCURATE CREATININE CLEARANCE IN PREDICTING GLOMERULAR FILTRATION RATE. ESTIMATED GFR IS NOT APPLICABLE FOR DIALYSIS PATIENTS. CBC W/PLT COUNT & AUTO [id number] 06:17:00* Test Item Value Reference Range Comments WHITE BLOOD CELL COUNT (BEAKER) (test klvs=585) 10.6 K/ L 4.0-10.0 RED BLOOD CELL COUNT (BEAKER) (test kktp=248) 2.68 M/ L 4.00-5.00 HEMOGLOBIN (BEAKER) (test soxh=814) 8.7 GM/DL 12.0-15.0 HEMATOCRIT (BEAKER) (test hbfo=728) 26.1 % 36.0-45.0 MEAN CORPUSCULAR VOLUME (BEAKER) (test jwcr=411) 97.6 fL 82.0-99.0 MEAN CORPUSCULAR HEMOGLOBIN (BEAKER) (test kago=366) 32.4 pg 27.0-33.0 MEAN CORPUSCULAR HEMOGLOBIN CONC (BEAKER) (test whpd=662) 33.3 GM/DL 32.0- 36.0 RED CELL DISTRIBUTION WIDTH (BEAKER) (test ezkr=423) 12.2 % 10.3-14.2 PLATELET COUNT (BEAKER) (test slne=087) 178 K/CU MM 150-430 MEAN PLATELET VOLUME (BEAKER) (test kawq=513) 6.6 fL 6.5-10.5 NUCLEATED RED BLOOD CELLS (BEAKER) (test jelu=518) 0 /100 WBC 0-0 NEUTROPHILS RELATIVE PERCENT (BEAKER) (test pkag=116) 65 % LYMPHOCYTES RELATIVE PERCENT (BEAKER) (test gjjs=303) 28 % MONOCYTES RELATIVE PERCENT (BEAKER) (test xzyr=297) 5 % EOSINOPHILS RELATIVE PERCENT (BEAKER) (test udco=716) 2 % BASOPHILS RELATIVE PERCENT (BEAKER) (test jbnl=820) 0 % NEUTROPHILS ABSOLUTE COUNT (BEAKER) (test bmyb=540) 6.83 K/ L 1.80-8.00 LYMPHOCYTES ABSOLUTE COUNT (BEAKER) (test wgae=385) 2.93 K/ L 1.48-4.50 MONOCYTES ABSOLUTE COUNT (BEAKER) (test qtns=038) 0.57 K/ L 0.00-1.30 EOSINOPHILS ABSOLUTE COUNT (BEAKER) (test emdn=500) 0.21 K/ L 0.00-0.50 BASOPHILS ABSOLUTE COUNT (BEAKER) (test fqdu=810) 0.02 K/ L 0.00-0.20 [id number] 06:15:00* Test Item Value Reference Range Comments PHOSPHORUS (BEAKER) (test tgyw=005) 3.2 mg/dL 2.3-4.7 [id number] 06:15:00* Test Item Value Reference Range Comments MAGNESIUM (BEAKER) (test amnc=925) 2.1 mg/dL 1.6-2.6 POCT-GLUCOSE [id number] 21:56:00* Test Item Value Reference Range Comments POC-GLUCOSE METER (BEAKER) (test zvcu=7035) 158 mg/dL 70-110 TESTED AT [address] [address] POCT-GLUCOSE [id number] 18:05:00* Test Item Value Reference Range Comments POC-GLUCOSE METER (BEAKER) (test wfoe=7062) 200 mg/dL 70-110 TESTED AT [address] [address] POCT-GLUCOSE [id number] 12:10:00* Test Item Value Reference Range Comments POC-GLUCOSE METER (BEAKER) (test jvxj=5567) 126 mg/dL 70-110 TESTED AT [address] [address] TACROLIMUS [id number] 09:55:00* Test Item Value Reference Range Comments TACROLIMUS BLOOD (BEAKER) (test alss=036) 8.9 ng/mL 10.0-20.0 POCT-GLUCOSE [id number] 08:00:00* Test Item Value Reference Range Comments POC-GLUCOSE METER (BEAKER) (test vsno=4179) 127 mg/dL 70-110 TESTED AT [address] [address] BASIC METABOLIC [id number] 06:28:00* Test Item Value Reference Range Comments SODIUM (BEAKER) (test rpuf=177) 140 meq/L 136-145 POTASSIUM (BEAKER) (test dimx=329) 3.7 meq/L 3.5-5.1 CHLORIDE (BEAKER) (test texv=645) 106 meq/L 98-107 CO2 (BEAKER) (test uotx=571) 26 meq/L 22-29 BLOOD UREA NITROGEN (BEAKER) (test fshc=905) 30 mg/dL 7-21 CREATININE (BEAKER) (test ukko=977) 2.62 mg/dL 0.57-1.25 GLUCOSE RANDOM (BEAKER) (test udvn=218) 155 mg/dL 70-105 CALCIUM (BEAKER) (test xlqa=586) 8.6 mg/dL 8.4-10.2 EGFR (BEAKER) (test zzyo=9410) 19 mL/min/1.73 sq m ESTIMATED GFR IS NOT ACCURATE CREATININE CLEARANCE IN PREDICTING GLOMERULAR FILTRATION RATE. ESTIMATED GFR IS NOT APPLICABLE FOR DIALYSIS PATIENTS. [id number] 06:25:00* Test Item Value Reference Range Comments PHOSPHORUS (BEAKER) (test yfzq=914) 3.2 mg/dL 2.3-4.7 [id number] 06:25:00* Test Item Value Reference Range Comments MAGNESIUM (BEAKER) (test shgk=329) 2.1 mg/dL 1.6-2.6 CBC W/PLT COUNT & AUTO [id number] 05:50:00* Test Item Value Reference Range Comments WHITE BLOOD CELL COUNT (BEAKER) (test nswv=818) 9.4 K/ L 4.0-10.0 RED BLOOD CELL COUNT (BEAKER) (test bukk=749) 2.63 M/ L 4.00-5.00 HEMOGLOBIN (BEAKER) (test lech=784) 8.3 GM/DL 12.0-15.0 HEMATOCRIT (BEAKER) (test vwau=250) 25.1 % 36.0-45.0 MEAN CORPUSCULAR VOLUME (BEAKER) (test snxv=262) 95.5 fL 82.0-99.0 MEAN CORPUSCULAR HEMOGLOBIN (BEAKER) (test tniv=271) 31.4 pg 27.0-33.0 MEAN CORPUSCULAR HEMOGLOBIN CONC (BEAKER) (test spiu=234) 32.9 GM/DL 32.0- 36.0 RED CELL DISTRIBUTION WIDTH (BEAKER) (test pjxp=742) 12.1 % 10.3-14.2 PLATELET COUNT (BEAKER) (test vcuy=748) 177 K/CU MM 150-430 MEAN PLATELET VOLUME (BEAKER) (test tchq=187) 7.0 fL 6.5-10.5 NUCLEATED RED BLOOD CELLS (BEAKER) (test nned=289) 0 /100 WBC 0-0 NEUTROPHILS RELATIVE PERCENT (BEAKER) (test vlhq=298) 73 % LYMPHOCYTES RELATIVE PERCENT (BEAKER) (test gwmf=678) 20 % MONOCYTES RELATIVE PERCENT (BEAKER) (test xnbq=954) 5 % EOSINOPHILS RELATIVE PERCENT (BEAKER) (test tfuc=741) 1 % BASOPHILS RELATIVE PERCENT (BEAKER) (test esqw=387) 0 % NEUTROPHILS ABSOLUTE COUNT (BEAKER) (test vzpw=330) 6.91 K/ L 1.80-8.00 LYMPHOCYTES ABSOLUTE COUNT (BEAKER) (test agvx=383) 1.93 K/ L 1.48-4.50 MONOCYTES ABSOLUTE COUNT (BEAKER) (test sgtr=652) 0.51 K/ L 0.00-1.30 EOSINOPHILS ABSOLUTE COUNT (BEAKER) (test hmkb=506) 0.08 K/ L 0.00-0.50 BASOPHILS ABSOLUTE COUNT (BEAKER) (test ovmj=657) 0.02 K/ L 0.00-0.20 0.00POCT-GLUCOSE [id number] 18:43:00* Test Item Value Reference Range Comments POC-GLUCOSE METER (BEAKER) (test rfdc=8892) 94 mg/dL 70-110 TESTED AT [facility] [address] [address] POCT-GLUCOSE [id number] 12:46:00* Test Item Value Reference Range Comments POC-GLUCOSE METER (BEAKER) (test uted=1639) 89 mg/dL 70-110 TESTED AT [facility] [address] [address] TACROLIMUS [id number] 09:55:00* Test Item Value Reference Range Comments TACROLIMUS BLOOD (BEAKER) (test znvl=555) 10.1 ng/mL 10.0-20.0 HEPATITIS PANEL, [id number] 08:40:00* Test Item Value Reference Range Comments HEPATITIS A IGM ANTIBODY (BEAKER) (test qvbw=805) Nonreactive Nonreactive HEPATITIS B CORE IGM ANTIBODY (BEAKER) (test uhfr=346) Nonreactive Nonreactive HEPATITIS C ANTIBODY (BEAKER) (test ftcy=519) Reactive Nonreactive HEPATITIS B SURFACE ANTIGEN (2) (BEAKER) (test wxod=9699) Nonreactive Nonreactive INTERPRETATION-551 (BEAKER) (test hkkh=8288) See Result Comments. MOVP-AJQMTAWVLMT-605 (BEAKER) (test came=7563) Farzad Luna M.D. (electonic signature) Hepatitis C exposure detected - likelihood of infectivity is high.Additional tests are recommended prior to initiation of therapy (Quantitative HCV-PCR; Genotype).No evidence of acute Hepatitis A. For evaluation of immune status, please order anti-HAV Total (IgG & IgM).No evidence of Hepatitis B.BASIC METABOLIC [id number] 07:43:00* Test Item Value Reference Range Comments SODIUM (BEAKER) (test tfer=244) 130 meq/L 136-145 POTASSIUM (BEAKER) (test ejlw=658) 4.6 meq/L 3.5-5.1 CHLORIDE (BEAKER) (test pwkn=238) 98 meq/L 98-107 CO2 (BEAKER) (test esbo=911) 21 meq/L 22-29 BLOOD UREA NITROGEN (BEAKER) (test qxog=947) 51 mg/dL 7-21 CREATININE (BEAKER) (test zcad=570) 3.80 mg/dL 0.57-1.25 GLUCOSE RANDOM (BEAKER) (test zyse=255) 89 mg/dL 70-105 CALCIUM (BEAKER) (test xsda=592) 8.6 mg/dL 8.4-10.2 EGFR (BEAKER) (test aldy=8582) 12 mL/min/1.73 sq m ESTIMATED GFR IS NOT ACCURATE CREATININE CLEARANCE IN PREDICTING GLOMERULAR FILTRATION RATE. ESTIMATED GFR IS NOT APPLICABLE FOR DIALYSIS PATIENTS. [id number] 07:42:00* Test Item Value Reference Range Comments PHOSPHORUS (BEAKER) (test mvte=264) 4.7 mg/dL 2.3-4.7 [id number] 07:42:00* Test Item Value Reference Range Comments MAGNESIUM (BEAKER) (test itst=202) 2.3 mg/dL 1.6-2.6 CBC W/PLT COUNT & AUTO [id number] 07:22:00* Test Item Value Reference Range Comments WHITE BLOOD CELL COUNT (BEAKER) (test wgtm=680) 9.3 K/ L 4.0-10.0 RED BLOOD CELL COUNT (BEAKER) (test fwms=556) 2.70 M/ L 4.00-5.00 HEMOGLOBIN (BEAKER) (test zdjs=283) 8.6 GM/DL 12.0-15.0 HEMATOCRIT (BEAKER) (test arpl=030) 25.9 % 36.0-45.0 MEAN CORPUSCULAR VOLUME (BEAKER) (test ijww=358) 96.0 fL 82.0-99.0 MEAN CORPUSCULAR HEMOGLOBIN (BEAKER) (test mqiw=147) 31.8 pg 27.0-33.0 MEAN CORPUSCULAR HEMOGLOBIN CONC (BEAKER) (test byyr=475) 33.1 GM/DL 32.0- 36.0 RED CELL DISTRIBUTION WIDTH (BEAKER) (test hadn=872) 12.1 % 10.3-14.2 PLATELET COUNT (BEAKER) (test mjaz=642) 151 K/CU MM 150-430 MEAN PLATELET VOLUME (BEAKER) (test oupd=359) 6.6 fL 6.5-10.5 NUCLEATED RED BLOOD CELLS (BEAKER) (test algg=023) 0 /100 WBC 0-0 NEUTROPHILS RELATIVE PERCENT (BEAKER) (test ziqx=317) 71 % LYMPHOCYTES RELATIVE PERCENT (BEAKER) (test rkjp=604) 22 % MONOCYTES RELATIVE PERCENT (BEAKER) (test kdjt=433) 6 % EOSINOPHILS RELATIVE PERCENT (BEAKER) (test uweh=356) 1 % BASOPHILS RELATIVE PERCENT (BEAKER) (test qjcw=021) 0 % NEUTROPHILS ABSOLUTE COUNT (BEAKER) (test mccg=404) 6.65 K/ L 1.80-8.00 LYMPHOCYTES ABSOLUTE COUNT (BEAKER) (test axug=616) 2.02 K/ L 1.48-4.50 MONOCYTES ABSOLUTE COUNT (BEAKER) (test leue=066) 0.56 K/ L 0.00-1.30 EOSINOPHILS ABSOLUTE COUNT (BEAKER) (test pfwh=935) 0.05 K/ L 0.00-0.50 BASOPHILS ABSOLUTE COUNT (BEAKER) (test ezkk=539) 0.04 K/ L 0.00-0.20 0.00POCT-GLUCOSE [id number] 22:14:00* Test Item Value Reference Range Comments POC-GLUCOSE METER (BEAKER) (test wvlg=2280) 152 mg/dL 70-110 TESTED AT [facility] [address] [address] URINE PROTEIN ELECTROPHORESIS, [id number] 16:43:00* Test Item Value Reference Range Comments PROTEIN, URINE (BEAKER) (test stgo=0890) 291 mg/dL 0-14 ALBUMIN URINE ELP (BEAKER) (test eygt=4465) 66.8 % GAMMA GLOBULIN URINE (BEAKER) (test ejfm=5889) 33.2 % UPEP, ID-438 (BEAKER) (test yxtc=4842) No monoclonal bands detected. [id number] (BEAKER) (test ubij=3477) Eliane Rodrigues MD ( electronic signature) HEPATIC FUNCTION [id number] 16:01:00* Test Item Value Reference Range Comments TOTAL PROTEIN (BEAKER) (test xbfp=637) 5.2 gm/dL 6.0-8.3 ALBUMIN (BEAKER) (test stmd=0904) 2.7 g/dL 3.5-5.0 BILIRUBIN TOTAL (BEAKER) (test ontk=848) 0.3 mg/dL 0.2-1.2 BILIRUBIN DIRECT (BEAKER) (test mfzm=885) 0.1 mg/dL 0.1-0.5 ALKALINE PHOSPHATASE (BEAKER) (test xfbr=375) 66 U/L 40-150 AST (SGOT) (BEAKER) (test mtti=673) 43 U/L 5-34 ALT (SGPT) (BEAKER) (test bfht=657) 24 U/L 6-55 VISCOSITY, [id number] 15:56:00* Test Item Value Reference Range Comments VISCOSITY, SERUM (BEAKER) (test zubp=5134) 1.3 rel.viscosity 1.4-1.8 POCT-GLUCOSE [id number] 12:24:00* Test Item Value Reference Range Comments POC-GLUCOSE METER (BEAKER) (test rcam=1640) 118 mg/dL 70-110 TESTED AT [facility] [address] [address] TACROLIMUS [id number] 12:14:00* Test Item Value Reference Range Comments TACROLIMUS BLOOD (BEAKER) (test jlhn=112) 7.0 ng/mL 10.0-20.0 BLOOD GAS, [id number] 10:24:00* Test Item Value Reference Range Comments PH ARTERIAL (BEAKER) (test sorc=927) 7.43 7.35-7.45 PCO2 ARTERIAL (BEAKER) (test hyou=395) 41 mmHg 35-45 PO2 ARTERIAL (BEAKER) (test htdq=641) 75 mmHg 80-90 O2 SATURATION ARTERIAL (BEAKER) (test bpcf=726) 95.6 % 96.0-97.0 HCO3 ARTERIAL (BEAKER) (test pody=169) 27 mmol/L 21-29 BASE EXCESS ARTERIAL (BEAKER) (test brzm=120) 2.2 mmol/L -2.0-3.0 PATIENT TEMPERATURE (BEAKER) (test zceo=1157) 36.6 C FIO2 (BEAKER) (test bdaf=0175) 24.0 % VITAMIN B12 AND [id number] 09:02:00* Test Item Value Reference Range Comments VITAMIN B12 (BEAKER) (test dejx=230) 496 pg/mL 213-816 FOLATE (BEAKER) (test yhyn=710) 35.0 ng/mL >=7.0 Effective 06/11/2014: Folate Reference Range ChangeNew: >=7.0 Previous: >= 5.4POCT-GLUCOSE [id number] 09:01:00* Test Item Value Reference Range Comments POC-GLUCOSE METER (BEAKER) (test gvut=7825) 99 mg/dL 70-110 TESTED AT [facility] [address] [address] CBC W/PLT COUNT & AUTO [id number] 07:25:00* Test Item Value Reference Range Comments WHITE BLOOD CELL COUNT (BEAKER) (test fgcj=782) 8.6 K/ L 4.0-10.0 RED BLOOD CELL COUNT (BEAKER) (test ylkr=313) 2.58 M/ L 4.00-5.00 HEMOGLOBIN (BEAKER) (test boez=912) 8.4 GM/DL 12.0-15.0 HEMATOCRIT (BEAKER) (test assq=051) 24.5 % 36.0-45.0 MEAN CORPUSCULAR VOLUME (BEAKER) (test htxh=698) 94.7 fL 82.0-99.0 Discordant from previous results MEAN CORPUSCULAR HEMOGLOBIN (BEAKER) (test xglr=336) 32.4 pg 27.0-33.0 MEAN CORPUSCULAR HEMOGLOBIN CONC (BEAKER) (test yzbl=545) 34.2 GM/DL 32.0- 36.0 RED CELL DISTRIBUTION WIDTH (BEAKER) (test fpps=084) 13.9 % 10.3-14.2 PLATELET COUNT (BEAKER) (test aoul=967) 150 K/CU MM 150-430 MEAN PLATELET VOLUME (BEAKER) (test gbox=474) 6.6 fL 6.5-10.5 NUCLEATED RED BLOOD CELLS (BEAKER) (test monf=073) 0 /100 WBC 0-0 NEUTROPHILS RELATIVE PERCENT (BEAKER) (test qilg=018) 61 % LYMPHOCYTES RELATIVE PERCENT (BEAKER) (test dmbi=853) 28 % MONOCYTES RELATIVE PERCENT (BEAKER) (test aapq=971) 9 % EOSINOPHILS RELATIVE PERCENT (BEAKER) (test juno=863) 2 % BASOPHILS RELATIVE PERCENT (BEAKER) (test hwfw=000) 0 % NEUTROPHILS ABSOLUTE COUNT (BEAKER) (test pzpj=426) 5.21 K/ L 1.80-8.00 LYMPHOCYTES ABSOLUTE COUNT (BEAKER) (test cnfs=549) 2.36 K/ L 1.48-4.50 MONOCYTES ABSOLUTE COUNT (BEAKER) (test gpci=740) 0.79 K/ L 0.00-1.30 EOSINOPHILS ABSOLUTE COUNT (BEAKER) (test eewk=211) 0.15 K/ L 0.00-0.50 BASOPHILS ABSOLUTE COUNT (BEAKER) (test cvhg=355) 0.04 K/ L 0.00-0.20 0.00BASIC METABOLIC [id number] 07:11:00* Test Item Value Reference Range Comments SODIUM (BEAKER) (test dqne=296) 133 meq/L 136-145 POTASSIUM (BEAKER) (test grtq=143) 4.3 meq/L 3.5-5.1 CHLORIDE (BEAKER) (test zavf=485) 100 meq/L 98-107 CO2 (BEAKER) (test bxte=677) 26 meq/L 22-29 BLOOD UREA NITROGEN (BEAKER) (test tbpf=363) 40 mg/dL 7-21 CREATININE (BEAKER) (test nbfu=942) 3.12 mg/dL 0.57-1.25 GLUCOSE RANDOM (BEAKER) (test ezrh=725) 90 mg/dL 70-105 CALCIUM (BEAKER) (test gocs=565) 8.2 mg/dL 8.4-10.2 EGFR (BEAKER) (test agvd=4465) 15 mL/min/1.73 sq m ESTIMATED GFR IS NOT ACCURATE CREATININE CLEARANCE IN PREDICTING GLOMERULAR FILTRATION RATE. ESTIMATED GFR IS NOT APPLICABLE FOR DIALYSIS PATIENTS. [id number] 07:09:00* Test Item Value Reference Range Comments PHOSPHORUS (BEAKER) (test fcck=123) 3.1 mg/dL 2.3-4.7 [id number] 07:09:00* Test Item Value Reference Range Comments MAGNESIUM (BEAKER) (test kvjh=457) 1.5 mg/dL 1.6-2.6 CALCIUM, [id number] 06:49:00* Test Item Value Reference Range Comments CALCIUM IONIZED (BEAKER) (test odvz=629) 0.88 mmol/L 1.12-1.27 PH, BLOOD (BEAKER) (test dymz=8196) 7.39 POCT-GLUCOSE [id number] 21:41:00* Test Item Value Reference Range Comments POC-GLUCOSE METER (BEAKER) (test wrnu=3101) 142 mg/dL 70-110 TESTED AT [address] [address] POCT-GLUCOSE [id number] 18:11:00* Test Item Value Reference Range Comments POC-GLUCOSE METER (BEAKER) (test opgl=9243) 130 mg/dL 70-110 TESTED AT [address] [address] HEPATITIS C PCR, [id number] 13:38:00* Test Item Value Reference Range Comments HCV RESULT COMPONENT (BEAKER) (test vude=5989) HCV RNA not detected HCV RNA not detected This test uses a Real-Time Polymerase Chain Reaction (RT-PCR) methodology and was performed using SERA Ampliprep/SERA TaqMan HCV test kit version 2.0 ( [employer]).Reportable range for this assay is 15 - 100,000, 000 IU per mL (1.18 - 8.00 Log IU/mL).PROTEIN, 24 HOUR [id number] 13:36:00 * Test Item Value Reference Range Comments PROTEIN, 24HR URINE (BEAKER) (test nqlo=3613) 1926 mg/24hr 0-300 VOLUME, TOTAL (BEAKER) (test nzgs=1984) 600 ml PROTEIN, URINE (BEAKER) (test yegd=2815) 321 mg/dL 0-14 Start after random urine sentPOCT-GLUCOSE [id number] 12:11:00* Test Item Value Reference Range Comments POC-GLUCOSE METER (BEAKER) (test cnwa=2014) 169 mg/dL 70-110 TESTED AT [facility] [address] [facility] [address] CBC W/PLT COUNT & AUTO [id number] 08:40:00* Test Item Value Reference Range Comments WHITE BLOOD CELL COUNT (BEAKER) (test vbbw=713) 7.4 K/ L 4.0-10.0 RED BLOOD CELL COUNT (BEAKER) (test wiwq=075) 2.07 M/ L 4.00-5.00 HEMOGLOBIN (BEAKER) (test ihia=499) 6.5 GM/DL 12.0-15.0 HEMATOCRIT (BEAKER) (test sxyp=547) 20.9 % 36.0-45.0 MEAN CORPUSCULAR VOLUME (BEAKER) (test frva=177) 101.0 fL 82.0-99.0 MEAN CORPUSCULAR HEMOGLOBIN (BEAKER) (test qpgg=279) 31.4 pg 27.0-33.0 MEAN CORPUSCULAR HEMOGLOBIN CONC (BEAKER) (test bilw=733) 31.1 GM/DL 32.0- 36.0 RED CELL DISTRIBUTION WIDTH (BEAKER) (test jpzu=701) 13.9 % 10.3-14.2 PLATELET COUNT (BEAKER) (test oivm=225) 170 K/CU MM 150-430 MEAN PLATELET VOLUME (BEAKER) (test uobf=670) 6.8 fL 6.5-10.5 NUCLEATED RED BLOOD CELLS (BEAKER) (test xovs=237) 0 /100 WBC 0-0 NEUTROPHILS RELATIVE PERCENT (BEAKER) (test dabx=981) 56 % LYMPHOCYTES RELATIVE PERCENT (BEAKER) (test ikwc=436) 35 % MONOCYTES RELATIVE PERCENT (BEAKER) (test ossb=363) 8 % EOSINOPHILS RELATIVE PERCENT (BEAKER) (test vlbj=507) 2 % BASOPHILS RELATIVE PERCENT (BEAKER) (test ihpj=834) 1 % NEUTROPHILS ABSOLUTE COUNT (BEAKER) (test ykaf=853) 4.10 K/ L 1.80-8.00 LYMPHOCYTES ABSOLUTE COUNT (BEAKER) (test fzoh=602) 2.55 K/ L 1.48-4.50 MONOCYTES ABSOLUTE COUNT (BEAKER) (test mxmh=980) 0.58 K/ L 0.00-1.30 EOSINOPHILS ABSOLUTE COUNT (BEAKER) (test htdn=244) 0.12 K/ L 0.00-0.50 BASOPHILS ABSOLUTE COUNT (BEAKER) (test lwda=172) 0.04 K/ L 0.00-0.20 0.00HEPATITIS B [id number] 08:14:00* Test Item Value Reference Range Comments HEPATITIS B CORE TOTAL ANTIBODY (BEAKER) (test xmkc=928) Nonreactive Nonreactive HEPATITIS B SURFACE ANTIBODY (BEAKER) (test bdor=868) < mIU/mL <8.0 HEPATITIS B SURFACE ANTIGEN (2) (BEAKER) (test bwkt=8981) Nonreactive Nonreactive [id number] 08:03:00* Test Item Value Reference Range Comments FERRITIN (BEAKER) (test ckmo=800) 606 ng/mL 5-275 Effective 06/11/2014: Reference Range ChangeNew: Male 5-275 Previous: Male 22-322 Female 5-275 Female 10-291 BASIC METABOLIC [id number] 07:57:00* Test Item Value Reference Range Comments SODIUM (BEAKER) (test aghu=752) 136 meq/L 136-145 POTASSIUM (BEAKER) (test muyx=157) 5.2 meq/L 3.5-5.1 CHLORIDE (BEAKER) (test gcjj=742) 109 meq/L 98-107 CO2 (BEAKER) (test poxt=750) 16 meq/L 22-29 BLOOD UREA NITROGEN (BEAKER) (test gxfe=406) 81 mg/dL 7-21 CREATININE (BEAKER) (test ijxt=812) 5.54 mg/dL 0.57-1.25 GLUCOSE RANDOM (BEAKER) (test etts=008) 112 mg/dL 70-105 CALCIUM (BEAKER) (test bxng=908) 8.0 mg/dL 8.4-10.2 EGFR (BEAKER) (test zoha=1887) 8 mL/min/1.73 sq m ESTIMATED GFR IS NOT ACCURATE CREATININE CLEARANCE IN PREDICTING GLOMERULAR FILTRATION RATE. ESTIMATED GFR IS NOT APPLICABLE FOR DIALYSIS PATIENTS. POCT-GLUCOSE [id number] 07:55:00* Test Item Value Reference Range Comments POC-GLUCOSE METER (BEAKER) (test jzbi=9496) 140 mg/dL 70-110 TESTED AT [facility] [address] [facility] [place] [address] IRON, TIBC, % SAT. (WITHOUT FERRITIN)2017-01-13 07:50:00* Test Item Value Reference Range Comments IRON (BEAKER) (test gylo=035) 71 ug/dL 40-160 TOTAL IRON BINDING CAPACITY (BEAKER) (test eszc=167) 181 ug/dL 250-450 IRON % SATURATION (2) (BEAKER) (test fkag=2727) 39 % 20-55 [id number] 07:47:00* Test Item Value Reference Range Comments PHOSPHORUS (BEAKER) (test jvjd=885) 5.5 mg/dL 2.3-4.7 [id number] 07:47:00* Test Item Value Reference Range Comments MAGNESIUM (BEAKER) (test dsbg=926) 2.0 mg/dL 1.6-2.6 [id number] 07:35:00* Test Item Value Reference Range Comments PROTIME (BEAKER) (test kvad=377) 12.5 seconds 11.7-14.7 INR (BEAKER) (test dcnv=464) 0.9 <=5.9 PARTIAL THROMBOPLASTIN TIME (BEAKER) (test ybue=828) 29.4 seconds 22.5-36.0 RECOMMENDED COUMADIN/WARFARIN INR THERAPY RANGESSTANDARD DOSE: 2.0 - 3.0 Includes: PROPHYLAXIS for venous thrombosis, systemic embolization; TREATMENT for venous thrombosis and/or pulmonary embolus.HIGH RISK: Target INR is 2.5-3.5 for patients with mechanical heart valves.POCT-GLUCOSE [id number] 00:57:00 * Test Item Value Reference Range Comments POC-GLUCOSE METER (BEAKER) (test bccy=5843) 151 mg/dL 70-110 TESTED AT [facility] [address] [address] URINE [id number] 18:57:00* Test Item Value Reference Range Comments CULTURE (BEAKER) (test aotz=2923) <10,000 col/mL skin jasbir ANTI-NUCLEAR ANTIBODY (DEB)2017-01-12 13:55:00* Test Item Value Reference Range Comments ANTI-NUCLEAR ANTIBODY (DEB) (BEAKER) (test ilkc=979) Negative Negative PROTEIN ELECTROPHORESIS, [id number] 11:41:00* Test Item Value Reference Range Comments ALBUMIN FRACTION (BEAKER) (test dkxt=490) 2.7 g/dL 3.5-5.5 ALPHA 1 FRACTION (BEAKER) (test aeps=974) 0.2 g/dL 0.2-0.4 ALPHA 2 FRACTION (BEAKER) (test gbbr=049) 0.6 g/dL 0.5-0.9 BETA FRACTION (BEAKER) (test pyoz=086) 0.9 g/dL 0.6-1.1 GAMMA GLOBULIN FRACTION (BEAKER) (test dhcn=800) 0.6 g/dL 0.7-1.7 INTERPRETATION-119 (BEAKER) (test uxar=7699) Decrease albumin and gamma globulins, suggestive of renal loss or protein-losing enteropathy. Elevation of alpha/beta fractions suggestive of acute inflammatory response. No monoclonal bands detected. [id number]-166 (BEAKER) (test idwh=7521) Eliane Rodrgiues MD ( electronic signature) PROTEIN TOTAL SERUM, SPEP (BEAKER) (test ejyd=6930) 5.0 gm/dL 6.0-8.3 CBC W/PLT COUNT & AUTO [id number] 08:17:00* Test Item Value Reference Range Comments WHITE BLOOD CELL COUNT (BEAKER) (test uvcx=950) 5.6 K/ L 4.0-10.0 RED BLOOD CELL COUNT (BEAKER) (test htep=651) 2.19 M/ L 4.00-5.00 HEMOGLOBIN (BEAKER) (test hpqe=950) 7.0 GM/DL 12.0-15.0 HEMATOCRIT (BEAKER) (test gazl=553) 21.4 % 36.0-45.0 MEAN CORPUSCULAR VOLUME (BEAKER) (test swjb=674) 97.5 fL 82.0-99.0 MEAN CORPUSCULAR HEMOGLOBIN (BEAKER) (test cjal=439) 31.9 pg 27.0-33.0 MEAN CORPUSCULAR HEMOGLOBIN CONC (BEAKER) (test zoub=281) 32.7 GM/DL 32.0- 36.0 RED CELL DISTRIBUTION WIDTH (BEAKER) (test sbgz=370) 14.0 % 10.3-14.2 PLATELET COUNT (BEAKER) (test bwpa=052) 166 K/CU MM 150-430 MEAN PLATELET VOLUME (BEAKER) (test gdcv=349) 6.7 fL 6.5-10.5 NUCLEATED RED BLOOD CELLS (BEAKER) (test fftp=490) 0 /100 WBC 0-0 NEUTROPHILS RELATIVE PERCENT (BEAKER) (test kdde=403) 54 % LYMPHOCYTES RELATIVE PERCENT (BEAKER) (test phtz=675) 38 % MONOCYTES RELATIVE PERCENT (BEAKER) (test lzzi=072) 7 % EOSINOPHILS RELATIVE PERCENT (BEAKER) (test skie=309) 1 % BASOPHILS RELATIVE PERCENT (BEAKER) (test nqqv=456) 1 % NEUTROPHILS ABSOLUTE COUNT (BEAKER) (test xftk=973) 3.01 K/ L 1.80-8.00 LYMPHOCYTES ABSOLUTE COUNT (BEAKER) (test ogea=133) 2.14 K/ L 1.48-4.50 MONOCYTES ABSOLUTE COUNT (BEAKER) (test enna=539) 0.38 K/ L 0.00-1.30 EOSINOPHILS ABSOLUTE COUNT (BEAKER) (test syks=727) 0.06 K/ L 0.00-0.50 BASOPHILS ABSOLUTE COUNT (BEAKER) (test gplq=949) 0.03 K/ L 0.00-0.20 0.00TACROLIMUS [id number] 08:13:00* Test Item Value Reference Range Comments TACROLIMUS BLOOD (BEAKER) (test gfpi=469) 5.2 ng/mL 10.0-20.0 [id number] 06:27:00* Test Item Value Reference Range Comments PHOSPHORUS (BEAKER) (test mdpw=034) 6.0 mg/dL 2.3-4.7 [id number] 06:27:00* Test Item Value Reference Range Comments MAGNESIUM (BEAKER) (test oftt=901) 2.2 mg/dL 1.6-2.6 BASIC METABOLIC [id number] 06:27:00* Test Item Value Reference Range Comments SODIUM (BEAKER) (test ojrm=480) 138 meq/L 136-145 POTASSIUM (BEAKER) (test dqdd=469) 4.9 meq/L 3.5-5.1 CHLORIDE (BEAKER) (test uxtm=719) 109 meq/L 98-107 CO2 (BEAKER) (test mvwq=121) 19 meq/L 22-29 BLOOD UREA NITROGEN (BEAKER) (test nqqt=455) 65 mg/dL 7-21 CREATININE (BEAKER) (test pioq=758) 5.54 mg/dL 0.57-1.25 GLUCOSE RANDOM (BEAKER) (test aift=027) 131 mg/dL 70-105 CALCIUM (BEAKER) (test ramm=477) 8.0 mg/dL 8.4-10.2 EGFR (BEAKER) (test njec=4346) 8 mL/min/1.73 sq m ESTIMATED GFR IS NOT ACCURATE CREATININE CLEARANCE IN PREDICTING GLOMERULAR FILTRATION RATE. ESTIMATED GFR IS NOT APPLICABLE FOR DIALYSIS PATIENTS. POCT-GLUCOSE [id number] 22:03:00* Test Item Value Reference Range Comments POC-GLUCOSE METER (BEAKER) (test cytw=5401) 193 mg/dL 70-110 TESTED AT [facility] [address] [address] POCT-GLUCOSE [id number] 19:07:00* Test Item Value Reference Range Comments POC-GLUCOSE METER (BEAKER) (test iikw=8989) 107 mg/dL 70-110 TESTED AT [facility] [address] [address] PROTEIN, RANDOM [id number] 16:37:00* Test Item Value Reference Range Comments PROTEIN, URINE (BEAKER) (test xmie=3139) 532 mg/dL 0-14 VITAMIN D, [id number] 15:27:00* Test Item Value Reference Range Comments VITAMIN D 25-OH (BEAKER) (test uium=8456) 19.5 ng/mL 13.0-47.8 EOSINOPHIL SMEAR, [id number] 13:37:00* Test Item Value Reference Range Comments EOSINOPHIL SMEAR, URINE (BEAKER) (test kwqb=2462) No EOS seen No EOS seen CREATININE, RANDOM [id number] 13:11:00* Test Item Value Reference Range Comments CREATININE URINE (BEAKER) (test qtki=950) 92.5 mg/dL Reference Range: No NormalsHEMOGLOBIN AND [id number] 12:54:00* Test Item Value Reference Range Comments HEMOGLOBIN (BEAKER) (test loyg=325) 7.0 GM/DL 12.0-15.0 HEMATOCRIT (BEAKER) (test eaxw=881) 21.3 % 36.0-45.0 COMPLEMENT COMPONENT [id number] 12:51:00* Test Item Value Reference Range Comments C4 COMPLEMENT (BEAKER) (test fxsr=200) 33 mg/dL 15-57 Effective 06/11/2014: Reference Range ChangeNew: 15-57 Previous: 16- 38COMPLEMENT COMPONENT [id number] 12:51:00* Test Item Value Reference Range Comments C3 COMPLEMENT (BEAKER) (test peoc=401) 101 mg/dL 82-193 Effective 06/11/2014: Reference Range ChangeNew: 82-193 Previous: 79-152PTH, [id number] 12:19:00* Test Item Value Reference Range Comments PARATHYROID HORMONE INTACT (BEAKER) (test rwow=667) 148.3 pg/mL 8.5-72.5 Effective 06/11/2014: Reference Range ChangeNew: 8.5-72.5 Previous: 15.0- 90.0POCT-GLUCOSE [id number] 11:43:00* Test Item Value Reference Range Comments POC-GLUCOSE METER (BEAKER) (test gpro=4649) 133 mg/dL 70-110 TESTED AT [facility] [address] [address] TACROLIMUS [id number] 09:39:00* Test Item Value Reference Range Comments TACROLIMUS BLOOD (BEAKER) (test xoqk=057) 4.3 ng/mL 10.0-20.0 TACROLIMUS [id number] 09:26:00* Test Item Value Reference Range Comments TACROLIMUS BLOOD (BEAKER) (test rzzp=270) 5.3 ng/mL 10.0-20.0 OSMOLALITY, [id number] 08:20:00* Test Item Value Reference Range Comments OSMOLALITY, SERUM (BEAKER) (test bqmo=729) 307 mOsm/kg 275-295 OSMOLALITY, [id number] 08:18:00* Test Item Value Reference Range Comments OSMOLALITY URINE (BEAKER) (test owjg=141) 373 mOsm/kg 40-1400 URINALYSIS W/ [id number] 07:43:00* Test Item Value Reference Range Comments COLOR (BEAKER) (test cikh=925) Yellow CLARITY (BEAKER) (test jfcj=547) Clear SPECIFIC GRAVITY UA (BEAKER) (test yzym=937) 1.016 1.001-1.035 PH UA (BEAKER) (test mwxd=754) 8.0 5.0-8.0 PROTEIN UA (BEAKER) (test btug=868) 600 mg/dL Negative GLUCOSE UA (BEAKER) (test yedp=426) Negative Negative KETONES UA (BEAKER) (test attx=049) Negative Negative BILIRUBIN UA (BEAKER) (test xocu=191) Negative Negative BLOOD UA (BEAKER) (test edyl=020) Negative Negative NITRITE UA (BEAKER) (test kvkx=626) Negative Negative LEUKOCYTE ESTERASE UA (BEAKER) (test dhrx=841) Small Negative UROBILINOGEN UA (BEAKER) (test bjhz=130) 0.2 mg/dL 0.2-1.0 RBC UA (BEAKER) (test jepr=065) 5 /HPF WBC UA (BEAKER) (test qqat=698) 44 /HPF BACTERIA (BEAKER) (test qyqy=821) Occasional MUCUS (BEAKER) (test sggo=4505) Rare SOURCE(BEAKER) (test invq=6946) Urine, Hercules POCT-GLUCOSE [id number] 07:28:00* Test Item Value Reference Range Comments POC-GLUCOSE METER (BEAKER) (test lped=1685) 114 mg/dL 70-110 TESTED AT [facility] [address] [address] CREATININE, RANDOM [id number] 06:33:00* Test Item Value Reference Range Comments CREATININE URINE (BEAKER) (test nmju=812) 93.3 mg/dL Reference Range: No NormalsPOTASSIUM, RANDOM [id number] 06:33:00* Test Item Value Reference Range Comments POTASSIUM URINE (BEAKER) (test shzc=148) 31.2 meq/L Reference Range: No NormalsSODIUM, RANDOM [id number] 06:33:00* Test Item Value Reference Range Comments SODIUM URINE (BEAKER) (test akph=282) 49 meq/L Reference Range: No [id number] 03:49:00* Test Item Value Reference Range Comments PHOSPHORUS (BEAKER) (test wwff=148) 5.5 mg/dL 2.3-4.7 [id number] 03:49:00* Test Item Value Reference Range Comments MAGNESIUM (BEAKER) (test dvjn=980) 2.2 mg/dL 1.6-2.6 HEPATIC FUNCTION [id number] 03:49:00* Test Item Value Reference Range Comments TOTAL PROTEIN (BEAKER) (test sshz=733) 5.1 gm/dL 6.0-8.3 ALBUMIN (BEAKER) (test luqs=8642) 2.7 g/dL 3.5-5.0 BILIRUBIN TOTAL (BEAKER) (test jgjx=742) 0.2 mg/dL 0.2-1.2 BILIRUBIN DIRECT (BEAKER) (test ciku=831) 0.1 mg/dL 0.1-0.5 ALKALINE PHOSPHATASE (BEAKER) (test drgz=120) 80 U/L 40-150 AST (SGOT) (BEAKER) (test izzy=007) 76 U/L 5-34 ALT (SGPT) (BEAKER) (test mxtb=746) 47 U/L 6-55 BASIC METABOLIC [id number] 03:49:00* Test Item Value Reference Range Comments SODIUM (BEAKER) (test canb=698) 139 meq/L 136-145 POTASSIUM (BEAKER) (test bfoz=588) 4.5 meq/L 3.5-5.1 CHLORIDE (BEAKER) (test tpfp=752) 113 meq/L 98-107 CO2 (BEAKER) (test toaj=966) 16 meq/L 22-29 BLOOD UREA NITROGEN (BEAKER) (test wfec=079) 52 mg/dL 7-21 CREATININE (BEAKER) (test vxcn=213) 4.67 mg/dL 0.57-1.25 GLUCOSE RANDOM (BEAKER) (test mhau=213) 113 mg/dL 70-105 CALCIUM (BEAKER) (test mmhl=387) 8.2 mg/dL 8.4-10.2 EGFR (BEAKER) (test dbbu=8530) 10 mL/min/1.73 sq m ESTIMATED GFR IS NOT ACCURATE CREATININE CLEARANCE IN PREDICTING GLOMERULAR FILTRATION RATE. ESTIMATED GFR IS NOT APPLICABLE FOR DIALYSIS PATIENTS. CBC W/PLT COUNT & AUTO [id number] 03:26:00* Test Item Value Reference Range Comments WHITE BLOOD CELL COUNT (BEAKER) (test kokr=748) 6.1 K/ L 4.0-10.0 RED BLOOD CELL COUNT (BEAKER) (test shtg=124) 2.23 M/ L 4.00-5.00 HEMOGLOBIN (BEAKER) (test dltv=379) 7.0 GM/DL 12.0-15.0 HEMATOCRIT (BEAKER) (test irlr=027) 21.3 % 36.0-45.0 MEAN CORPUSCULAR VOLUME (BEAKER) (test rmeo=738) 95.3 fL 82.0-99.0 MEAN CORPUSCULAR HEMOGLOBIN (BEAKER) (test tzuw=585) 31.5 pg 27.0-33.0 MEAN CORPUSCULAR HEMOGLOBIN CONC (BEAKER) (test wfyx=542) 33.1 GM/DL 32.0- 36.0 RED CELL DISTRIBUTION WIDTH (BEAKER) (test gcyt=333) 13.6 % 10.3-14.2 PLATELET COUNT (BEAKER) (test vpqs=918) 163 K/CU MM 150-430 MEAN PLATELET VOLUME (BEAKER) (test ufbh=019) 6.3 fL 6.5-10.5 NUCLEATED RED BLOOD CELLS (BEAKER) (test ugxj=682) 0 /100 WBC 0-0 NEUTROPHILS RELATIVE PERCENT (BEAKER) (test scuu=032) 51 % LYMPHOCYTES RELATIVE PERCENT (BEAKER) (test debs=747) 39 % MONOCYTES RELATIVE PERCENT (BEAKER) (test ntgx=923) 6 % EOSINOPHILS RELATIVE PERCENT (BEAKER) (test djay=226) 3 % BASOPHILS RELATIVE PERCENT (BEAKER) (test gpeo=443) 1 % NEUTROPHILS ABSOLUTE COUNT (BEAKER) (test hpap=081) 3.10 K/ L 1.80-8.00 LYMPHOCYTES ABSOLUTE COUNT (BEAKER) (test mbfb=926) 2.40 K/ L 1.48-4.50 MONOCYTES ABSOLUTE COUNT (BEAKER) (test novh=304) 0.39 K/ L 0.00-1.30 EOSINOPHILS ABSOLUTE COUNT (BEAKER) (test ajte=234) 0.15 K/ L 0.00-0.50 BASOPHILS ABSOLUTE COUNT (BEAKER) (test tsay=586) 0.06 K/ L 0.00-0.20 [id number] 23:06:00* Test Item Value Reference Range Comments MAGNESIUM (BEAKER) (test pglx=110) 2.1 mg/dL 1.6-2.6 POCT-GLUCOSE [id number] 22:53:00* Test Item Value Reference Range Comments POC-GLUCOSE METER (BEAKER) (test mctf=9093) 144 mg/dL 70-110 TESTED AT [facility] [address] [address] HEPATIC FUNCTION [id number] 20:10:00* Test Item Value Reference Range Comments TOTAL PROTEIN (BEAKER) (test oweu=925) 5.4 gm/dL 6.0-8.3 ALBUMIN (BEAKER) (test gpqt=1562) 2.8 g/dL 3.5-5.0 BILIRUBIN TOTAL (BEAKER) (test hchv=553) 0.2 mg/dL 0.2-1.2 BILIRUBIN DIRECT (BEAKER) (test mmrq=512) 0.1 mg/dL 0.1-0.5 ALKALINE PHOSPHATASE (BEAKER) (test iwzp=422) 85 U/L 40-150 AST (SGOT) (BEAKER) (test ajqm=869) 115 U/L 5-34 ALT (SGPT) (BEAKER) (test pkhc=928) 62 U/L 6-55 [id number] 19:59:00* Test Item Value Reference Range Comments PARTIAL THROMBOPLASTIN TIME (BEAKER) (test qmml=752) 28.6 seconds 22.5-36.0 PROTHROMBIN TIME/[id number] 19:58:00* Test Item Value Reference Range Comments PROTIME (BEAKER) (test qhte=057) 14.0 seconds 11.7-14.7 INR (BEAKER) (test tdux=552) 1.1 <=5.9 RECOMMENDED COUMADIN/WARFARIN INR THERAPY RANGESSTANDARD DOSE: 2.0 - 3.0 Includes: PROPHYLAXIS for venous thrombosis, systemic embolization; TREATMENT for venous thrombosis and/or pulmonary embolus.HIGH RISK: Target INR is 2.5-3.5 for patients with mechanical heart valves.BASIC METABOLIC [id number] 16:52: 00* Test Item Value Reference Range Comments SODIUM (BEAKER) (test qrya=912) 139 meq/L 136-145 POTASSIUM (BEAKER) (test oeby=603) 4.0 meq/L 3.5-5.1 CHLORIDE (BEAKER) (test dhnz=490) 111 meq/L 98-107 CO2 (BEAKER) (test pmfn=606) 17 meq/L 22-29 BLOOD UREA NITROGEN (BEAKER) (test nbsl=923) 52 mg/dL 7-21 CREATININE (BEAKER) (test ydft=079) 4.52 mg/dL 0.57-1.25 GLUCOSE RANDOM (BEAKER) (test jyrv=572) 123 mg/dL 70-105 CALCIUM (BEAKER) (test cgkb=576) 8.4 mg/dL 8.4-10.2 EGFR (BEAKER) (test nbyp=1099) 10 mL/min/1.73 sq m ESTIMATED GFR IS NOT ACCURATE CREATININE CLEARANCE IN PREDICTING GLOMERULAR FILTRATION RATE. ESTIMATED GFR IS NOT APPLICABLE FOR DIALYSIS PATIENTS. [id number] 16:44:00* Test Item Value Reference Range Comments PHOSPHORUS (BEAKER) (test wrbf=285) 4.5 mg/dL 2.3-4.7 [id number] 16:44:00* Test Item Value Reference Range Comments MAGNESIUM (BEAKER) (test qtrb=324) 1.4 mg/dL 1.6-2.6 CBC W/PLT COUNT & AUTO [id number] 16:34:00* Test Item Value Reference Range Comments WHITE BLOOD CELL COUNT (BEAKER) (test dlyz=974) 8.9 K/ L 4.0-10.0 RED BLOOD CELL COUNT (BEAKER) (test fggq=319) 2.34 M/ L 4.00-5.00 HEMOGLOBIN (BEAKER) (test jjjw=044) 7.6 GM/DL 12.0-15.0 HEMATOCRIT (BEAKER) (test pjjv=425) 22.2 % 36.0-45.0 MEAN CORPUSCULAR VOLUME (BEAKER) (test jwdt=272) 94.7 fL 82.0-99.0 MEAN CORPUSCULAR HEMOGLOBIN (BEAKER) (test ibpq=655) 32.5 pg 27.0-33.0 MEAN CORPUSCULAR HEMOGLOBIN CONC (BEAKER) (test xvxb=578) 34.3 GM/DL 32.0- 36.0 RED CELL DISTRIBUTION WIDTH (BEAKER) (test jxjq=188) 12.3 % 10.3-14.2 PLATELET COUNT (BEAKER) (test gzgq=830) 183 K/CU MM 150-430 MEAN PLATELET VOLUME (BEAKER) (test dzxd=435) 5.7 fL 6.5-10.5 NUCLEATED RED BLOOD CELLS (BEAKER) (test rpml=237) 0 /100 WBC 0-0 NEUTROPHILS RELATIVE PERCENT (BEAKER) (test zoll=105) 54 % LYMPHOCYTES RELATIVE PERCENT (BEAKER) (test iaec=890) 36 % MONOCYTES RELATIVE PERCENT (BEAKER) (test jyty=290) 7 % EOSINOPHILS RELATIVE PERCENT (BEAKER) (test jnch=712) 2 % BASOPHILS RELATIVE PERCENT (BEAKER) (test rmos=782) 1 % NEUTROPHILS ABSOLUTE COUNT (BEAKER) (test tylz=603) 4.77 K/ L 1.80-8.00 LYMPHOCYTES ABSOLUTE COUNT (BEAKER) (test tiin=529) 3.22 K/ L 1.48-4.50 MONOCYTES ABSOLUTE COUNT (BEAKER) (test axku=314) 0.66 K/ L 0.00-1.30 EOSINOPHILS ABSOLUTE COUNT (BEAKER) (test ygrt=222) 0.17 K/ L 0.00-0.50 BASOPHILS ABSOLUTE COUNT (BEAKER) (test khez=702) 0.05 K/ L 0.00-0.20 0.00POCT-GLUCOSE [id number] 06:59:00* Test Item Value Reference Range Comments POC-GLUCOSE METER (BEAKER) (test gqsz=6693) 177 mg/dL 70-110 TESTED AT [facility] [address] [place] [address] POCT-GLUCOSE [id number] 08:22:00* Test Item Value Reference Range Comments POC-GLUCOSE METER (BEAKER) (test psep=2755) 146 mg/dL 70-110 TESTED AT [address] [address] CHEST SINGLE (PORTABLE) [facility] [address] [place] [address] Patient Name: YAEL MONTERROSO MR #: [id number] : 1955 Age/Sex: 62/F Req # : [id number] Adm Physician: Ordered by: JASMINA CARBAJAL CELLAR SUPERVISOR Report #: [id number] Location: ER Room/Bed: Procedure: [id number] DX/CHEST SINGLE (PORTABLE) Exam Date: 08/23/17 Exam Time: 1920 REPORT STATUS: Signed EXAMINATION: CHEST SINGLE (PORTABLE) INDICATION: Blood pressure. COMPARISON: 01/10/2017. FINDINGS: TUBES and LINES: None. LUNGS: Lungs are hypoinflated. Mild diffuse coarsening of the pulmonary interstitium. In the left lung base suggestive of subsegmental atelectasis. There is no evidence of pneumonia or pulmonary edema. PLEURA: Mild blunting of the bilateral lateral costophrenic sulcus may represent pleural scarring versus trace pleural effusions. No pneumothorax. HEART AND MEDIASTINUM: The cardiomediastinal silhouette is remarkable for postsurgical changes related to CABG again observed. BONES AND SOFT TISSUES: No acute osseous lesion. UPPER ABDOMEN: No free air under the diaphragm. There are cholecystectomy clips. IMPRESSION: Left basilar subsegmental atelectasis. Signed by: Dr. Mary Cifuentes M.D. on 08/23/2017 7:48 PM Dictated By: NIKKI CIFUENTES MD, MD 47 Transcribed By: BRE on 08/23/171947 COPY TO: JASMINA CARBAJAL CELLAR SUPERVISOR CT BRAIN WO [place] [address] Patient Name: YAEL MONTERROSO MR #: [id number] : 1955 Age/Sex: 62/F Req #: [id number] Adm Physician: Ordered by: JASMINA CARBAJAL CELLAR SUPERVISOR Report #: [id number] Location: ER Room/Bed: Procedure: [id number] CT/CT BRAIN WO Exam Date: 08/23/17 Exam Time: 1920 REPORT STATUS: Signed Examination: CT head without contrast Clinical Indication: Headaches; hypertension. Technique: Transaxial noncontrast images from the skull base through the vertex were obtained. Sagittal and coronal reformatted images were done. Comparison: Head CT dated 10/11/2016. Findings: Scalp: No new acute abnormalities. Interval resolution of acute right parietal scalp laceration and hematoma. Bones: Intact. No fractures. No blastic or lytic lesions. Brain sulci: Mild volume loss for patient's age. Ventricles: No hydrocephalus. Extra-axial space: No abnormalities. Parenchyma: There are mild confluent areas of low- attenuation within subcortical and periventricular white matter, nonspecific, but could represent microvascular ischemic disease. Again demonstrated is a chronic lacunar infarct of the bilateral caudate nuclei and bilateral cerebellar hemispheres. No masses, hemorrhage, or acute cortical based vascular insults. Suprasellar region: No abnormalities. Craniocervical junction: The foramen magnum is patent. No Chiari one malformation. Incidental findings: Atherosclerotic calcification of the cavernous and supraclinoid internal carotid and V4 segments of the bilateral vertebral arteries. Impression: 1. No new acute intracranial abnormality. 2. Interval resolution of acute right parietal scalp laceration and hematoma when compared to prior head CT dated 10/11/2016. 3. Unchanged mild chronic microvascular ischemic change and volume loss. 4. Unchanged chronic lacunar infarcts, as above. Signed by: Dr. Danny King M.D. on 08/23/2017 7:54 PM Dictated By: DANNY VO MD 53 Transcribed By: BRE on 08/23/171953 COPY TO: JASMINA CARBAJAL NP SMALL BOWEL SERIES [place] [address] Patient Name: YAEL MONTERROSO MR #: [id number] : 1955 Age/Sex: 62/F Req # : [id number] Adm Physician: ELSIE OH MD Ordered by: MALLORY PENA MD Report #: [id number] Location: MED/SURG2 Room/Bed: 204 _ Procedure: [id number] DX/SMALL BOWEL SERIES Exam Date: 04/01/17 Exam Time: 909 REPORT STATUS: Signed PROCEDURE: SMALL BOWEL SERIES OPERATORS: Dana Ray M.D. Fluoroscopy time: 0.2 minutes Comparison: None. Indications: FOOD GOING THROUGH BOWEL QUICKLY, ANEMIA Technique: Small bowel follow through exam was performed using oral barium. Preliminary image was obtained before administration of contrast and serial overhead images were obtained after administration of oral barium. Fluoroscopy was performed and spot images were obtained. Findings: Hotel Engineer: The bowel gas pattern shows no dilated, air-filled loops of bowel. Amorphous calcifications project over the iliac wings likely reflective of soft tissue calcified injection granulomata. Atherosclerotic vascular calcifications in the aortoiliac distribution. Surgical clips project over the right upper quadrant of the abdomen in the left inguinal region. Regional skeletal structures are grossly intact. SMALL BOWEL FOLLOW THROUGH: Small bowel loops are normal in caliber and distribution. Spot compression views of the terminal ileum are normal. The transit time was decreased. IMPRESSION: Nonspecific decreased intestinal transit time. Otherwise unremarkable fluoroscopic appearance of the small bowel. Dictated by: Dana Ray M.D. on 04/01/2017 at 9:44 Electronically approved by: Dana Ray M.D. on 04/01/2017 at 9:44 Dictated By: DANA RAY MD 3 Transcribed By: INGRID on 04/01/17943 COPY TO: MALLORY PENA MD VENOUS DUPLEX UPPER U/L [place] [address] Patient Name : YAEL MONTERROSO MR #: [id number] : 1955 Age/Sex: 62/F Adm Physician : ELSIE OH MD Admit Date : 12/08 Location : MED/SURG2 Room/Bed : [facility] _ REPORT: Cardiology Report DATE OF STUDY: March 29, 2017 DOPPLER SCAN OF LEFT ARM VEINS The left arm veins were interrogated using the duplex scanning method. The right arm was not studied. The study is poor quality, suboptimally interrogated, suboptimally presented. Several areas were not well visualized including the proximal and mid left brachial veins. Dialysis graft is present. No high velocities were noted. CONCLUSIONS 1. Suboptimal study, technically difficult, with several areas not well visualized. 2. Dialysis graft did not show any high-grade velocities. 3. Cannot exclude deep venous thrombosis although in the areas well visualized no definite deep venous thrombosis can be determined. 4. The right arm was not studied. RECOMMENDATION: If clinically indicated, consider venography or arteriography. DT : 03/30/2017 12:33 Job#: [id number] cc: JHONNY VERA MD Signature Date Dictated By: MARIA ISABEL ULLOA MD Transcribed By: EDS on 03/30/17 <Electronically signed by MARIA ISABEL ULLOA MD><<Signature on File>>04/06/17 1017 COPY TO: [facility] (PORTABLE) [place] [address] Patient Name: YAEL MONTERROSO MR #: [id number] : 1955 Age/Sex: 62/F Req #: [id number] Adm Physician: Ordered by: JHONNY VERA MD Report #: [id number] Location: ER Room/Bed: Procedure: DX/CHEST SINGLE (PORTABLE) Exam Date: 03/29/17 Exam Time: 0840 REPORT STATUS: Signed PROCEDURE: CHEST SINGLE (PORTABLE) COMPARISON: [facility], DX, CHEST SINGLE (NOT PORTABLE), 02/25/2017, 17:48. INDICATIONS: WEAKNESS SHORTNESS OF BREATH FINDINGS: LUNGS: Moderate pulmonary edema. PLEURA: Small bilateral pleural effusions. HEART T MEDIASTINUM: The heart is enlarged compared to prior study. Sternotomy wire sutures, multiple right upper quadrant clips and a left IJ tunneled hemodialysis catheter are unchanged. BONES T SOFT TISSUES: No acute findings. CONCLUSION: Moderate pulmonary edema with bilateral pleural effusions. Mathew Hawkins D.O. Dictated by: Mathew Hawkins D.O. on 03/29/2017 at 9:18 Electronically approved by: Mathew Hawkins D.O. on 03/29/2017 at 9:18 Dictated By: MATHEW HAWKINS DO 7 Transcribed By: INGRID on 03/29/17917 COPY TO: JHONNY VERA MD
--- OUTSIDE RECORDS SUMMARY | 2017-09-13 15:16 | XMS REPORT | Continuity of Care Document ---
Author Author [facility] Organization [facility] Address [address] [place] [address] Phone Unavailable Care Team Providers Care Machine Design Engineer Name Role Phone ELSIE OH MD PCP Insurance Providers Guarantor Funmi Monterroso Address [address] [place] [address] Email [email or web address] Payer Blue Medicare Advantage Policy Number [id number] Subscriber's Name Funmi Monterroso Relationship 18 Self / Same As Patient Group Number [id number] Group Name [id number] Effective Date 14 Advance Directives Directive Response Recorded Date/Time Does the patient have an advance directive? No 03/29/17 1:12pm If yes, is advance directive on file with [facility]? No 03/29/17 1:12pm If not on file with [facility] will patient provide a copy? Yes 03/29/17 1:12pm Do you have a Directive to Physician? No 08/23/17 6:59pm Do you have a Medical Power of Billing Associate? No 08/23/17 6:59pm Do you have an out of hospital Do Not Resuscitate Order? No 08/23/17 6:59pm Do you have any special needs we should be aware of? No 08/23/17 6:59pm Do you have a support person here with you today? Yes 08/23/17 6:59pm Did patient receive Notice of Privacy Practices? Yes 08/23/17 6:59pm Did patient receive patient rights and responsibilities? Yes 08/23/17 6:59pm Problems Medical Problem Onset Date Status Acute on chronic renal failure Unknown Anemia Unknown CHF exacerbation Unknown ESRD (end stage renal disease) Unknown Headache Unknown Hypertensive emergency Unknown Renal failure Unknown Vomiting Unknown Surgical Problem Onset Date Status Heart transplanted Unknown Medications Current Home Medications Medication Dose Units Route Directions Days Qty Instructions Start Date Acetaminophen (Tylenol*) 325 Mg Tablet 650 Mg Oral Every 6 Hours as needed for Pain Aspirin (Aspir 81) 81 Mg Tablet. 81 Mg Oral Daily Atorvastatin Calcium (Lipitor) 20 Mg Tablet 80 Mg Oral Bedtime 30 Tab Carvedilol 3.125 Mg Tablet 12.5 Mg Oral Every 12 Hours 60 Tab Hold for SBP less than 110 or HR less than 60 Cetirizine Hcl (Zyrtec) 10 Mg Tablet 10 Mg Oral Daily THERAPEUTICALLY SUBSTITUTED WITH LORATADINE 10MG Ciprofloxacin Hcl (Cipro) 250 Mg Tablet 500 Mg Oral Daily 3 Days Clindamycin Hcl 150 Mg Capsule 300 Mg Oral Daily 5 Days Ergocalciferol (Vitamin D2) (Vitamin D2) 50,000 Unit Capsule 50,000 Units Oral Give every tuesday Ferrous Sulfate (Iron) 325 Mg Tablet 325 Mg Oral Three Times A Day Folic Acid 1 Mg Tablet 1 Mg Oral Daily 30 Tab Heparin Sodium,Porcine (Heparin Sodium) 5,000 Unit/1 Ml Vial 5,000 Units Subcutaneously Twice A Day Insulin Aspart (Novolog) 100 Unit/1 Ml Cartridge Inject as per sliding scale if blood sugar is BS 151-200=2 units BS 201-250=4 units BS 251 -300=6 units BS 301-350=8 units BS 351-400=10 units Above 400=10 units and notify MD, subcutaneosly before meals and at bedtime Lactobacillus Acidophilus (Acidophilus) 1 Each Tab.chew 1 Tab Oral Three Times A Day Magnesium Oxide 400 Mg Tablet 400 Mg Oral Twice A Day Mycophenolate Mofetil 250 Mg Capsule 500 Mg Oral Twice A Day Ondansetron (Zofran Odt) 4 Mg Tab.rapdis 4 Mg Oral Every 6 Hours Pantoprazole Sodium (Protonix) 40 Mg Tablet. 40 Mg Oral Daily Tacrolimus (Prograf) 1 Mg Cap 1 Mg Oral Every Morning Past Home Medications Medication Directions Ordered Status Alendronate Sodium (Fosamax) 70 Mg Tablet, 70 Mg Oral Tuesday Discontinued Celcept , 500 Mg Oral Twice A Day Discontinued Celcept , 500 Mg Oral Twice A Day Discontinued Citalopram Hydrobromide (Celexa) 40 Mg Tablet, 40 Mg Oral Daily Discontinued Clonidine Hcl 0.1 Mg Tablet, 1 Tab Oral Twice A Day Discontinued Escitalopram Oxalate (Lexapro) 10 Mg Tablet, 10 Mg Oral Daily Discontinued Hydralazine Hcl 10 Mg Tablet, 10 Mg Oral Three Times A Day Discontinued Insulin Glargine (Lantus 3ML Pen) 100 Units/1 Ml Inj, 15 Units Sub-Q Bedtime Discontinued Insulin Glargine,Hum.rec.anlog (Lantus) 100 Unit/1 Ml Cartridge, 15 Units Subcutaneously Bedtime Discontinued Insulin Human Lispro (Humalog) 100 Units/Ml Ml, 5 Units Subcutaneously Three Times Daily With Meals Discontinued Insulin Lispro (Humalog) 100 Unit/1 Ml Insuln.pen, 5 Units Sub-Q Three Times A Day Discontinued Metronidazole (Flagyl) 500 Mg Tablet, 500 Mg Oral Three Times A Day Discontinued Niacin (Niaspan) 750 Mg Tab.er.24h, 1500 Mg Oral Bedtime Discontinued [place]-3 Fatty Acids/Fish Oil ([place] 3 1,000 Mg Softgel) 1 Each Capsule, 1 Cap Oral Three Times A Day Discontinued Prednisone 2.5 Mg Tablet, 2.5 Mg Oral Bedtime Discontinued Sulfamethoxazole/Trimethoprim (Bactrim Ds Tablet) 1 Each Tablet, 1 Tab Oral Mon, Wed, Tue Discontinued Tacrolimus (Prograf) 0.5 Mg Capsule, 1.5 Mg Oral Today At 9:00PM Discontinued Tramadol/Acetaminophen (Tramadol-Acetaminophn 37.5-325) 1 Ea Tab, 2 Tab Oral Every 6 Hours as needed for Pain Discontinued Vitamin E Mixed (Vitamin E) 400 Unit Capsule, 800 Units Oral Daily Discontinued Social History Social History Problem Response Recorded Date/Time Onset Date Status Hx Psychiatric Problems No 03/29/2017 1:12pm Not Applicable Not Applicable Hx Eating Disorder No 03/29/2017 1:12pm Not Applicable Not Applicable Hx Substance Use Disorder No 03/29/2017 1:12pm Not Applicable Not Applicable Hx Depression No 03/29/2017 1:12pm Not Applicable Not Applicable Hx Alcohol Use No 03/29/2017 1:12pm Not Applicable Not Applicable Hx Substance Use Treatment No 03/29/2017 1:12pm Not Applicable Not Applicable Hx Physical Abuse No 03/29/2017 1:12pm Not Applicable Not Applicable Smoking Status Start Date Stop Date Never Smoker Hospital Discharge Instructions No hospital discharge instruction information available. Plan of Care Discharge Date 08/23/17 11:11pm Disposition HOME, SELF-CARE Condition at Discharge Stable Instructions/Education Provided Hypertension Forms Provided Work/School Excuse Prescriptions See Medication Section Referrals ELSIE OH MD Order Date: Call for an appointment Address: [address] [place] [id number] Additional Instructions/Education DC HOME FOLLOW UP WITH PCP TAKE MEDS DIRECTED RETURN TO THE ER WITH ANY EMERGENT Functional Status No functional status information available. Allergies, Adverse Reactions, Alerts Allergen Type Severity Reaction Status Last Updated Penicillin Allergy Mild RASH Active 02/25/17 Codeine Allergy Severe AIRWAY CONSTRICTION Active 02/25/17 Sirolimus Allergy Severe Active 02/25/17 Immunizations No immunization information available. Vital Signs Acute Vital Signs Vital Response Date/Time Temperature (Fahrenheit) 98.6 degrees F (97.6 - 99.5) 08/23/2017 10:50pm Pulse Pulse Rate (adult) 92 bpm (60 - 90) 08/23/2017 10:50pm Respiratory Rate 18 bpm (12 - 24) 08/23/2017 10:50pm Blood Pressure 148/99 mm Hg 08/23/2017 10:50pm Height 5 ft 4 in 08/23/2017 6:27pm Weight 98 lb 08/23/2017 6:27pm Body Mass Index 16.8 kg/m^2 08/23/2017 6:27pm Results Laboratory Results Test Name Result Units Flags Reference Collection Date/Time Result Date/ Time Comments Hepatitis Be Antibody Negative Negative 2017 7:00am 03/01/2017 4:03pm Performed at: - [address] [id number] [employer] Kettle Tender: Jacob Starr MD, Phone: [phone] Hepatitis B Core Total Antibody Negative Negative 2017 7:00am 02/28/2017 2:09am Hepatitis B Core IgM Antibody Negative Negative 2017 7:00am 01/2017 2:10am Performed at: [facility] [address] [id number] [employer] Kettle Tender: Karlos Fernández MD, Phone: [phone] Percent Reticulocyte Count 1.3 % 0.8-2.2 03/30/2017 5:37am 03/30/2017 7 :09am Urine Color YELLOW YELLOW 03/29/2017 9:20am 03/29/2017 9:47am Urine Clarity HAZY CLEAR 03/29/2017 9:20am 03/29/2017 9:47am Urine Specific [place] 1.020 1.010-1.025 03/29/2017 9:20am 2016 9:47am Urine pH 8 H 5 - 7 03/29/2017 9:20am 03/29/2017 9:47am Urine Leukocyte Esterase 2+ H NEGATIVE 03/29/2017 9:20am 03/29/2017 9: 47am Urine Nitrite NEGATIVE NEGATIVE 03/29/2017 9:20am 03/29/2017 9:47am Urine Protein 2+ H NEGATIVE 03/29/2017 9:20am 03/29/2017 9:47am Urine Glucose (UA) NEGATIVE NEGATIVE 03/29/2017 9:20am 03/29/2017 9: 47am Urine Ketones NEGATIVE NEGATIVE 03/29/2017 9:20am 03/29/2017 9:47am Urine Urobilinogen 0.2 mg/dL 0.2 - 1 03/29/2017 9:20am 03/29/2017 9: 47am Urine Bilirubin NEGATIVE NEGATIVE 03/29/2017 9:20am 03/29/2017 9: 47am Urine Blood 3+ H NEGATIVE 03/29/2017 9:20am 03/29/2017 9:47am Urine WBC 11-20 /HPF H 0-5 03/29/2017 9:20am 03/29/2017 10:24am Urine RBC 21-50 /HPF H 0-5 03/29/2017 9:20am 03/29/2017 10:24am Urine Bacteria FEW /HPF NONE 03/29/2017 9:20am 03/29/2017 10:24am Urine Epithelial Cells FEW /LPF NONE 03/29/2017 9:20am 03/29/2017 10: 24am Urine Collection Time 24 hrs 04/03/2017 8:15am 04/04/2017 8:54am Urine Total Volume 225 ml/24hr L 800-2000 04/03/2017 8:15am 04/04/2017 8 :54am Urine Creatinine 70.40 mg/dL 47-110 04/03/2017 8:15am 04/04/2017 8: 53am Urine Creatinine 24 Hour 158 mg/24hr L 600-1800 04/03/2017 8:15am 2016 8:54am Creatinine Clearance 4 ml/min L 88-128 04/03/2017 8:15am 04/04/2017 8: 54am Bedside Glucose 100 mg/dL 70-120 04/05/2017 7:27am 04/05/2017 7:59am Meter ID: [id number] Phosphorus Level 2.4 MG/DL 2.3-4.7 04/05/2017 5:46am 04/05/2017 6:48am Magnesium Level 1.9 MG/DL 1.3-2.1 03/31/2017 6:14am 03/31/2017 6:58am Iron Level 59 ug/dL 50-170 03/29/2017 1:55pm 03/29/2017 3:15pm Total Iron Binding Capacity 200 ug/dL L 261-478 03/29/2017 1:55pm 2016 3:15pm Percent Iron Saturation 30 % 15-50 03/29/2017 1:55pm 03/29/2017 3:15pm Transferrin 143 mg/dL L 180-382 03/29/2017 1:55pm 03/29/2017 3:15pm Ferritin 1802.41 ng/mL H 4.63-204.00 03/29/2017 1:55pm 03/29/2017 3: 22pm B-Type Natriuretic Peptide 1586.9 pg/mL H 0-100 03/29/2017 9:40am 2016 10:30am Vitamin B12 Level > 2000 pg/mL H 213-816 03/30/2017 5:31am 03/30/2017 7: 35am Folate 19.0 ng/mL H 7.0-15.4 03/30/2017 5:31am 03/30/2017 10:48am Hepatitis B Surface Antigen Negative Negative 03/31/2017 6:41pm 04/02 10:36pm Performed at: - [address] [id number] [employer] Kettle Tender: Karlos Fernández MD, Phone: [phone] White Blood Count 7.11 x10e3/uL 4.8-10.8 08/23/2017 6:44pm 08/23/2017 6 :57pm Red Blood Count 2.92 x10e6/uL L 3.6-5.1 08/23/2017 6:44pm 08/23/2017 6: 57pm Hemoglobin 9.0 g/dL L 12.0-16.0 08/23/2017 6:44pm 08/23/2017 6:57pm Hematocrit 29.1 % L 34.2-44.1 08/23/2017 6:44pm 08/23/2017 6:57pm Mean Corpuscular Volume 99.7 fL H 81-99 08/23/2017 6:44pm 08/23/2017 6: 57pm Mean Corpuscular Hemoglobin 30.8 pg 28-32 08/23/2017 6:44pm 08/23/2017 6:57pm Mean Corpuscular Hemoglobin Concent 30.9 g/dL L 31-35 08/23/2017 6:44pm 08/23/2017 6:57pm Red Cell Distribution Width 14.8 % H 11.7-14.4 08/23/2017 6:44pm 2017 6:57pm Platelet Count 297 x10e3/uL 140-360 08/23/2017 6:44pm 08/23/2017 6: 57pm Neutrophils (%) (Auto) 60.8 % 38.7-80.0 08/23/2017 6:44pm 08/23/2017 6: 57pm Lymphocytes (%) (Auto) 28.7 % 18.0-39.1 08/23/2017 6:44pm 08/23/2017 6: 57pm Monocytes (%) (Auto) 7.6 % 4.4-11.3 08/23/2017 6:44pm 08/23/2017 6: 57pm Eosinophils (%) (Auto) 1.4 % 0.0-6.0 08/23/2017 6:44pm 08/23/2017 6: 57pm Basophils (%) (Auto) 0.8 % 0.0-1.0 08/23/2017 6:44pm 08/23/2017 6:57pm IM GRANULOCYTES % 0.7 % 0.0-1.0 08/23/2017 6:44pm 08/23/2017 6:57pm Neutrophils # (Auto) 4.3 2.1-6.9 08/23/2017 6:44pm 08/23/2017 6:57pm Lymphocytes # (Auto) 2.0 1.0-3.2 08/23/2017 6:44pm 08/23/2017 6:57pm Monocytes # (Auto) 0.5 0.2-0.8 08/23/2017 6:44pm 08/23/2017 6:57pm Eosinophils # (Auto) 0.1 0.0-0.4 08/23/2017 6:44pm 08/23/2017 6:57pm Basophils # (Auto) 0.1 0.0-0.1 08/23/2017 6:44pm 08/23/2017 6:57pm Absolute Immature Granulocyte (auto 0.05 x10e3/uL 0-0.1 08/23/2017 6: 44pm 08/23/2017 6:57pm Prothrombin Time 12.3 seconds 11.9-14.5 08/23/2017 6:44pm 08/23/2017 7: 03pm Prothromb Time International Ratio 0.87 08/23/2017 6:44pm 2017 7:03pm Oral Anticoagulant Therapy INR Values: 1. Low Intensity Therapy 1.5 - 2.0 2. Moderate Intensity Therapy 2.0 - 3.0 3. High Intensity Therapy(1) 2.5 - 3.5 4. High Intensity Therapy(2) 3.0 - 4.0 5. Panic Value INR > 5.0 Activated Partial Thromboplast Time 28.6 seconds 23.8-35.5 08/23/2017 6: 44pm 08/23/2017 7:03pm Sodium Level 139 mmol/L 136-145 08/23/2017 6:44pm 08/23/2017 7:14pm Potassium Level 4.4 mmol/L 3.5-5.1 08/23/2017 6:44pm 08/23/2017 7:14pm Chloride Level 99 mmol/L 98-107 08/23/2017 6:44pm 08/23/2017 7:14pm Carbon Dioxide Level 30 mmol/L H 22-29 08/23/2017 6:44pm 08/23/2017 7: 14pm Anion Gap 14.4 mmol/L 8-16 08/23/2017 6:44pm 08/23/2017 7:14pm Blood Urea Nitrogen 18 mg/dL 7-08/23/2017 6:44pm 08/23/2017 7:14pm Creatinine 1.88 mg/dL H 0.57-1.11 08/23/2017 6:44pm 08/23/2017 7:14pm BUN/Creatinine Ratio 10 6-25 08/23/2017 6:44pm 08/23/2017 7:14pm Estimat Glomerular Filtration Rate 27 ML/MIN L 60- 08/23/2017 6:44pm 7:14pm Ranges were taken from the National Kidney Disease Education Program and the National Kid[employer] Foundation literature. Reference ranges: 60 or greater: Normal 16-59 (for 3 consecutive months): Chronic kidney disease 15 or less: Kidney failure Glucose Level 142 mg/dL H 74-118 08/23/2017 6:44pm 08/23/2017 7:14pm Calcium Level 9.1 mg/dL 8.4-10.2 08/23/2017 6:44pm 08/23/2017 7:14pm Total Bilirubin 0.6 mg/dL 0.2-1.2 08/23/2017 6:44pm 08/23/2017 7:14pm Aspartate Amino Transf (AST/SGOT) 21 IU/L 5-34 08/23/2017 6:44pm 2017 7:14pm Alanine Aminotransferase (ALT/SGPT) 13 IU/L 0-55 08/23/2017 6:44pm 7:14pm Total Protein 6.9 g/dL 6.5-8.1 08/23/2017 6:44pm 08/23/2017 7:14pm Albumin 3.2 g/dL L 3.5-5.0 08/23/2017 6:44pm 08/23/2017 7:14pm Globulin 3.7 g/dL H 2.3-3.5 08/23/2017 6:44pm 08/23/2017 7:14pm Albumin/Globulin Ratio 0.9 0.8-2.0 08/23/2017 6:44pm 08/23/2017 7: 14pm Alkaline Phosphatase 125 IU/L 40-150 08/23/2017 6:44pm 08/23/2017 7: 14pm Creatine Kinase 31 IU/L 29-168 08/23/2017 6:44pm 08/23/2017 7:14pm Creatine Kinase MB 1.10 ng/mL 0.00-5.00 08/23/2017 6:44pm 08/23/2017 7: 22pm Troponin I 0.007 ng/mL 0-0.300 08/23/2017 6:44pm 08/23/2017 7:22pm Microbiology Results Procedure Source Organism/Result Collection Date/Time Result Date/Time Result Status Urine Culture Urine,Random ESCHERICHIA COLI 03/29/2017 9:20am 03/31/2017 8 :06am Final Procedures Procedure Status Date Provider(s) BLOOD TRANSFUSION SERVICE Completed 02/25/17 ALBERTO ALVAREZ MD HEMODIALYSIS ONE EVALUATION Completed 02/25/17 JULES COREY MD EXCISION OF STOMACH, PYLORUS, ENDO, DIAGN Completed 03/31/17 MALLORY PENA MD EXCISION OF DUODENUM, ENDO, DIAGN Completed 03/31/17 MALLORY PENA MD EXCISION OF TRANSVERSE COLON, ENDO, DIAGN Completed 03/31/17 MALLORY PENA MD PERFORMANCE OF URINARY FILTRATION, MULTIPLE Completed 03/29/17 MARI CORMIER TRANSFUSE NONAUT RED BLOOD CELLS IN CENTRAL VEIN, PERC Completed 03/29/17 MARI CORMIER Computed tomography of brain without radiopaque contrast Active 01/10/17 NORMAN GONSALES MD X-ray of chest, single view Active 02/25/17 SATNAM HAGAN MD Computed tomography of brain without radiopaque contrast Active 08/23/17 JASMINA CARBAJAL LABOR RELATIONS ANALYST Encounters Encounter Location Arrival/Admit Date Discharge/Depart Date Attending Provider Departed Emergency Room [facility] 08/23/17 6:07pm 11:11pm ALBERTO ALVAREZ MD Discharged Inpatient [facility] 03/29/17 10:48am 5:57pm ELSIE OH MD Discharged Inpatient (obs) [facility] 02/25/17 11:43pm 1:11pm YESI HAWLEY MD Discharged Inpatient [facility] 01/10/17 6:44am 01/10/17 1:37pm ELSIE OH MD
[2017-09-13] MEDS ORDERED: HYDROMORPHONE 1MG/1ML INJ IV STA (16:27)
[2017-09-13] MEDS ORDERED: ONDANSETRON HCL INJ 2 MG/ML VIAL IV STA (16:27)
[2017-09-13 16:30] LABS: BASOPHILS % 0.3 % (0.0-1.0); EOSINOPHILS % 0.5 % (0.0-6.0); HEMATOCRIT 30.6 % (34.2-44.1); LYMPHOCYTES # (AUTO) 1.7 (1.0-3.2); MEAN CORPUSCULAR HEMOGLOBIN 31.9 pg (28-32); MEAN CORPUSCULAR HGB CONC 32.7 g/dL (31-35); MEAN CORPUSCULAR VOLUME 97.8 fL (81-99); MONOCYTES # (AUTO) 0.8 (0.2-0.8); MONOCYTES % 8.7 % (4.4-11.3); NEUTROPHILS # (AUTO) 6.3 (2.1-6.9); NEUTROPHILS % 70.9 % (38.7-80.0); PLATELET COUNT 215 x10e3/uL (140-360); RED BLOOD COUNT 3.13 x10e6/uL (3.6-5.1); RED CELL DISTRIBUTION WIDTH 18.2 % (11.7-14.4)
[2017-09-13 16:42] LABS: PROTHROMBIN TIME 12.4 seconds (11.9-14.5)
[2017-09-13 16:50] LABS: ALBUMIN 3.8 g/dL (3.5-5.0); ANION GAP 16.5 mmol/L (8-16); CALCIUM 8.8 mg/dL (8.4-10.2); CREATININE, SERUM 2.13 mg/dL (0.57-1.11); POTASSIUM 3.5 mmol/L (3.5-5.1)
--- NOTE | 2017-09-13 16:56 | Diagnostic Imaging Report ---
Examination: CT BRAIN WITHOUT CONTRAST History:Headaches. Comparison studies:Head CT performed August 23, 2017 Technique: Axial images were obtained from the skull base to the vertex. Coronal and sagittal images reconstructed from the axial data. Intravenous contrast: None Findings: Scalp: No abnormalities. Bones: No fractures, blastic or lytic lesions. Brain sulci: Mild volume loss for patient's age. Ventricles: No hydrocephalus. Extra-axial space: No abnormalities. Parenchyma: There are mild confluent areas of low-attenuation within subcortical and periventricular white matter, nonspecific, but could represent microvascular ischemic disease. Again demonstrated are chronic lacunar infarcts of the bilateral caudate nuclei and bilateral cerebellar hemispheres. No masses, hemorrhage, or acute cortical based vascular insults. Suprasellar region: No abnormalities. Craniocervical junction: The foramen magnum is patent. No Chiari one malformation. Incidental findings: Atherosclerotic calcification of the cavernous and supraclinoid internal carotid and V4 segments of the bilateral vertebral arteries. Impression: 1. No new or acute intracranial abnormality. No change from prior head CT dated August 23, 2017. 2. Unchanged mild chronic microvascular ischemic change and volume loss. 3. Unchanged chronic lacunar infarcts, as above. Signed by: Dr. Galina King M.D. on 09/13/2017 4:52 PM
[2017-09-13 16:57] LABS: CREATINE KINASE MB 2.1 ng/mL (0-5.0)
[2017-09-13] MEDS ORDERED: CLONIDINE HCL 0.2 MG TAB PO STA (16:57)
[2017-09-13] MEDS ORDERED: CLONIDINE HCL 0.1 MG TAB PO STA (18:12)
== END 2017-09-13 19:18 | disposition home or self-care (01) ==
LOC: ER 15:11
DX: R51 Headache (principal); I10 Essential (primary) hypertension; Z91.14 Patient's other noncompliance with medication regimen
CPT/HCPCS: 36415; 70450; 80053; 82550; 82553; 84484; 85025; 85610; 85730; 93005; 99284; J1170; J2405

== ENCOUNTER 2017-09-30 16:58 | Emergency (ER) | payer BC, MEDICARE ==
[~2017-09-30] VITALS: Ht 162.6 cm; Wt 44.5 kg
--- OUTSIDE RECORDS SUMMARY | 2017-09-30 17:01 | XMS REPORT | Continuity of Care Document ---
Author Author [facility] Organization [facility] Address [address] [place] [address] Phone Unavailable Care Team Providers Care Event Designer Name Role Phone ELSIE OH MD PCP Insurance Providers Guarantor Funmi Monterroso Address [address] [place] [address] Email [email or web address] Payer [employer] Policy Number [id number] Subscriber's Name MonterrosoFunmi morris [place] Relationship 18 Self / Same As Patient Group Number [id number] Group Name [employer] Effective Date 16 Advance Directives Directive Response Recorded Date/Time Does the patient have an advance directive? No 03/29/17 1:12pm If yes, is advance directive on file with [facility]? No 03/29/17 1:12pm If not on file with [facility] will patient provide a copy? Yes 03/29/17 1:12pm Do you have a Directive to Physician? No 09/13/17 5:44pm Do you have a Medical Power of Process Safety Specialist? No 09/13/17 5:44pm Do you have an out of hospital Do Not Resuscitate Order? No 09/13/17 5:44pm Do you have any special needs we should be aware of? No 09/13/17 5:44pm Do you have a support person here with you today? Yes 09/13/17 5:44pm Did patient receive Notice of Privacy Practices? Yes 09/13/17 5:44pm Did patient receive patient rights and responsibilities? Yes 09/13/17 5:44pm Problems Medical Problem Onset Date Status Acute [...] for Pain Aspirin (Aspir 81) 81 Mg Tablet.dr 81 Mg Oral Daily Atorvastatin Calcium (Lipitor) [...] 6 Hours Pantoprazole Sodium (Protonix) 40 Mg Tablet.dr 40 Mg Oral Daily Tacrolimus (Prograf) 1 [...] Mg Tab.er.24h, 1500 Mg Oral Bedtime Discontinued Greenwood-3 Fatty Acids/Fish Oil (Greenwood 3 1,000 Mg Softgel) 1 Each Capsule, 1 Cap Oral Three Times A Day Discontinued Prednisone 2.5 Mg Tablet, 2.5 Mg Oral Bedtime Discontinued Sulfamethoxazole/Trimethoprim (Bactrim Ds Tablet) 1 Each Tablet, 1 Tab Oral Mon, Wed, Fri Discontinued Tacrolimus (Prograf) 0.5 Mg Capsule, 1.5 [...] No 03/29/2017 1:12pm Not Applicable Not Applicable Hospital Discharge Instructions No hospital discharge instruction information available. Plan of Care Discharge Date 09/13/17 7:18pm Disposition HOME, SELF-CARE Condition at Discharge Stable Instructions/Education Provided Headache Hypertension Forms Provided Work/School Excuse Prescriptions See Medication Section Referrals ELSIE OH MD Address: [address] [place] [id number] Additional Instructions/Education see your doctor tomorrow for follow up take your prescriptions as directed Functional Status No functional status information available. Allergies, Adverse Reactions, Alerts Allergen Type Severity Reaction Status Last Updated Penicillin Allergy Mild RASH Active 09/13/17 Codeine Allergy Severe AIRWAY CONSTRICTION Active 09/13/17 Sirolimus Allergy Severe Active 09/13/17 Immunizations No immunization information available. Vital Signs Acute Vital Signs Vital Response Date/Time Temperature (Fahrenheit) 98.6 degrees F (97.6 - 99.5) 08/23/2017 10:50pm Pulse Pulse Rate (adult) 92 bpm (60 - 90) 08/23/2017 10:50pm Respiratory Rate 18 bpm (12 - 24) 08/23/2017 10:50pm Blood Pressure 148/99 mm Hg 08/23/2017 10:50pm Height 5 ft 4 in 09/13/2017 3:46pm Weight 98 lb 09/13/2017 3:46pm Body Mass Index 16.8 kg/m^2 09/13/2017 3:46pm Results Laboratory Results Test Name Result Units Flags Reference Collection Date/Time Result Date/ Time Comments Hepatitis Be Antibody Negative Negative 2017 7:00am 03/01/2017 4:03pm Performed at: - [facility] [id number] Beater Worker Helper: Jacob Starr MD, Phone: [phone] Hepatitis B Core Total Antibody Negative Negative 2017 7:00am 02/28/2017 2:09am Hepatitis B Core IgM Antibody Negative Negative 2017 7:00am 01/2017 2:10am Performed at: - [facility] [id number] Beater Worker Helper: Karlos Fernández MD, Phone: [phone] Percent Reticulocyte Count 1.3 % 0.8-2.2 03/30/2017 5:37am 03/30/2017 7 :09am Urine Color YELLOW YELLOW 03/29/2017 9:20am 03/29/2017 9:47am Urine Clarity HAZY CLEAR 03/29/2017 9:20am 03/29/2017 9:47am Urine Specific Hallie 1.020 1.010-1.025 03/29/2017 9:20am 2016 9:47am Urine [...] 70-120 04/05/2017 7:27am 04/05/2017 7:59am Meter ID: [id number] Phosphorus Level 2.4 MG/DL 2.3-4.7 04/05/2017 5:46am [...] 03/31/2017 6:41pm 04/02 10:36pm Performed at: - [facility] [id number] Beater Worker Helper: Karlos Fernández MD, Phone: [phone] White Blood Count 8.84 x10e3/uL 4.8-10.8 09/13/2017 4:09/13/2017 4 :31pm Red Blood Count 3.13 x10e6/uL L 3.6-5.1 09/13/2017 4:09/13/2017 4: 31pm Hemoglobin 10.0 g/dL L 12.0-16.0 09/13/2017 4:09/13/2017 4:31pm Hematocrit 30.6 % L 34.2-44.1 09/13/2017 4:09/13/2017 4:31pm Mean Corpuscular Volume 97.8 fL 81-99 09/13/2017 4:09/13/2017 4: 31pm Mean Corpuscular Hemoglobin 31.9 pg 28-32 09/13/2017 4:09/13/2017 4:31pm Mean Corpuscular Hemoglobin Concent 32.7 g/dL 31-35 09/13/2017 4:09/13/2017 4:31pm Red Cell Distribution Width 18.2 % H 11.7-14.4 09/13/2017 4:2017 4:31pm Platelet Count 215 x10e3/uL 140-360 09/13/2017 4:09/13/2017 4: 31pm Neutrophils (%) (Auto) 70.9 % 38.7-80.0 09/13/2017 4:09/13/2017 4: 31pm Lymphocytes (%) (Auto) 19.0 % 18.0-39.1 09/13/2017 4:09/13/2017 4: 31pm Monocytes (%) (Auto) 8.7 % 4.4-11.3 09/13/2017 4:09/13/2017 4: 31pm Eosinophils (%) (Auto) 0.5 % 0.0-6.0 09/13/2017 4:09/13/2017 4: 31pm Basophils (%) (Auto) 0.3 % 0.0-1.0 09/13/2017 4:09/13/2017 4:31pm IM GRANULOCYTES % 0.6 % 0.0-1.0 09/13/2017 4:09/13/2017 4:31pm Neutrophils # (Auto) 6.3 2.1-6.9 09/13/2017 4:20pm 09/13/2017 4:31pm Lymphocytes # (Auto) 1.7 1.0-3.2 09/13/2017 4:20pm 09/13/2017 4:31pm Monocytes # (Auto) 0.8 0.2-0.8 09/13/2017 4:2009/13/2017 4:31pm Eosinophils # (Auto) 0.0 0.0-0.4 09/13/2017 4:20pm 09/13/2017 4:31pm Basophils # (Auto) 0.0 0.0-0.1 09/13/2017 4:2009/13/2017 4:31pm Absolute Immature Granulocyte (auto 0.05 x10e3/uL 0-0.1 09/13/2017 4: 20pm 09/13/2017 4:31pm Prothrombin Time 12.4 seconds 11.9-14.5 09/13/2017 4:2009/13/2017 4: 43pm Prothromb Time International Ratio 1.00 09/13/2017 4:2017 4:43pm Oral Anticoagulant Therapy INR Values: 1. Low Intensity Therapy 1.5 - 2.0 2. Moderate Intensity Therapy 2.0 - 3.0 3. High Intensity Therapy(1) 2.5 - 3.5 4. High Intensity Therapy(2) 3.0 - 4.0 5. Panic Value INR > 5.0 Activated Partial Thromboplast Time 27.0 seconds 23.8-35.5 09/13/2017 4: 09/13/2017 4:43pm Sodium Level 137 mmol/L 136-145 09/13/2017 4:2009/13/2017 4:51pm Potassium Level 3.5 mmol/L 3.5-5.1 09/13/2017 4:20pm 09/13/2017 4:51pm Chloride Level 95 mmol/L L 98-107 09/13/2017 4:20pm 09/13/2017 4:51pm Carbon Dioxide Level 29 mmol/L 22-29 09/13/2017 4:20pm 09/13/2017 4: 51pm Anion Gap 16.5 mmol/L H 8-16 09/13/2017 4:20pm 09/13/2017 4:51pm Blood Urea Nitrogen 25 mg/dL 7-26 09/13/2017 4:20pm 09/13/2017 4:51pm Creatinine 2.13 mg/dL H 0.57-1.11 09/13/2017 4:20pm 09/13/2017 4:51pm BUN/Creatinine Ratio 12 6-25 09/13/2017 4:20pm 09/13/2017 4:51pm Estimat Glomerular Filtration Rate 23 ML/MIN L 60- 09/13/2017 4:20pm 4:51pm Ranges were taken from the National Kidney Disease Education Program and the National Kidney Foundation literature. Reference ranges: 60 or greater: Normal 16-59 (for 3 consecutive months): Chronic kidney disease 15 or less: Kidney failure Glucose Level 150 mg/dL H 74-118 09/13/2017 4:20pm 09/13/2017 4:51pm Calcium Level 8.8 mg/dL 8.4-10.2 09/13/2017 4:20pm 09/13/2017 4:51pm Total Bilirubin 0.8 mg/dL 0.2-1.2 09/13/2017 4:20pm 09/13/2017 4:51pm Aspartate Amino Transf (AST/SGOT) 27 IU/L 5-34 09/13/2017 4:20pm 2017 4:51pm Alanine Aminotransferase (ALT/SGPT) 18 IU/L 0-55 09/13/2017 4:20pm 4:51pm Total Protein 7.5 g/dL 6.5-8.1 09/13/2017 4:20pm 09/13/2017 4:51pm Albumin 3.8 g/dL 3.5-5.0 09/13/2017 4:20pm 09/13/2017 4:51pm Globulin 3.7 g/dL H 2.3-3.5 09/13/2017 4:20pm 09/13/2017 4:51pm Albumin/Globulin Ratio 1.0 0.8-2.0 09/13/2017 4:20pm 09/13/2017 4: 51pm Alkaline Phosphatase 144 IU/L 40-150 09/13/2017 4:20pm 09/13/2017 4: 51pm Creatine Kinase 48 IU/L 29-168 09/13/2017 4:20pm 09/13/2017 4:51pm Creatine Kinase MB 2.10 ng/mL 0-5.0 09/13/2017 4:20pm 09/13/2017 4: 57pm Troponin I 0.016 ng/mL 0-0.300 09/13/2017 4:20pm 09/13/2017 4:57pm Microbiology Results Procedure Source Organism/Result Collection Date/Time [...] without radiopaque contrast Active 08/23/17 JASMINA CARBAJAL NP Computed tomography of brain without radiopaque contrast Active 09/13/17 PAULIE TUTTLE MD Encounters Encounter Location Arrival/Admit Date Discharge/Depart Date Attending Provider Registered Emergency Room [facility] 09/13/17 3:11pm PAULIE TUTTLE MD Departed Emergency Room [facility] 08/23/17 6:07pm 11:11pm ALBERTO ALVAREZ MD Discharged Inpatient [facility] 03/29/17 10:48am 5:57pm ELSIE OH MD Discharged Inpatient (obs) [facility] 02/25/17 11:43pm 1:11pm YESI HAWLEY MD Discharged Inpatient [facility] 01/10/17 6:44am 01/10/17 1:37pm ELSIE OH MD
[2017-09-30 18:17] LABS: BASOPHILS # (AUTO) 0.1 (0.0-0.1); BASOPHILS % 0.8 % (0.0-1.0); EOSINOPHILS # (AUTO) 0.2 (0.0-0.4); EOSINOPHILS % 3.8 % (0.0-6.0); HEMATOCRIT 31.1 % (34.2-44.1); HEMOGLOBIN 9.7 g/dL (12.0-16.0); LYMPHOCYTES # (AUTO) 1.9 (1.0-3.2); LYMPHOCYTES % 30.5 % (18.0-39.1); MEAN CORPUSCULAR HEMOGLOBIN 31.4 pg (28-32); MEAN CORPUSCULAR HGB CONC 31.2 g/dL (31-35); MEAN CORPUSCULAR VOLUME 100.6 fL (81-99); MONOCYTES # (AUTO) 0.5 (0.2-0.8); MONOCYTES % 7.3 % (4.4-11.3); NEUTROPHILS # (AUTO) 3.6 (2.1-6.9); NEUTROPHILS % 57.3 % (38.7-80.0); PLATELET COUNT 136 x10e3/uL (140-360); RED BLOOD COUNT 3.09 x10e6/uL (3.6-5.1); RED CELL DISTRIBUTION WIDTH 17.8 % (11.7-14.4)
[2017-09-30] MEDS ORDERED: ONDANSETRON HCL INJ 2 MG/ML VIAL IV STA ×2 (18:19→19:24)
[2017-09-30] MEDS ORDERED: PANTOPRAZOLE 40 MG 10ML VIAL IV STA (18:19)
[2017-09-30] MEDS ORDERED: ALBUTEROL SULF 0.083% NEB SOLN 3 ML NEB NEB STA ×2 (18:19→18:38)
[2017-09-30 18:23] LABS: INR 0.98; PROTHROMBIN TIME 12.2 seconds (11.9-14.5)
[2017-09-30 18:24] LABS: PARTIAL THROMBOPLASTIN TIME 33.6 seconds (23.8-35.5)
[2017-09-30 18:27] LABS: PHOSPHORUS 4.5 MG/DL (2.3-4.7)
[2017-09-30] MEDS ORDERED: IPRATROPIUM BROMIDE 0.02% 2.5 ML NEB NEB ONE ×2 (18:30→18:45)
[2017-09-30] MEDS ORDERED: CEFEPIME HCL 1 GM VIAL IV ONE (18:30)
[2017-09-30] MEDS ORDERED: FENTANYL CITRATE/PF 100MCG/2 ML INJ IV ONE ×2 (18:30→20:00)
[2017-09-30 18:34] LABS: ALBUMIN 3.6 g/dL (3.5-5.0); ANION GAP 22.4 mmol/L (8-16); CREATININE, SERUM 7.02 mg/dL (0.57-1.11)
--- NOTE | 2017-09-30 18:34 | Diagnostic Imaging Report ---
PROCEDURE: A single AP view of the chest. COMPARISON: 08/23/17 INDICATIONS: SHORTNESS OF BREATH FINDINGS: Lines/tubes: Left upper extremity vascular stent is partially visualized. Lungs: The lungs are well inflated. Central vascular congestion and moderate interstitial edema. Pleura: There is no pneumothorax. Trace bilateral pleural effusions. Heart and mediastinum: Enlarged cardiomediastinal silhouette. Median sternotomy wires and mediastinal surgical clips are again seen. Aorta is mildly calcified and tortuous. Bones: No acute bony abnormality. Right upper quadrant surgical clips. IMPRESSION: Central vascular congestion and moderate interstitial edema. Dictated by: Dmitri Cartwright M.D. on 09/30/2017 at 18:34 Electronically approved by: Dmitri Cartwright M.D. on 09/30/2017 at 18:34
[2017-09-30 18:36] LABS: POTASSIUM 7.4 mmol/L (3.5-5.1)
[2017-09-30] MEDS ORDERED: SODIUM BICARBONATE 8.4% 50 ML VIAL IV STA (18:38)
[2017-09-30 18:40] LABS: CREATINE KINASE MB 3.9 ng/mL (0-5.0)
[2017-09-30] MEDS ORDERED: CALCIUM GLUCONATE 10% INJ 4.65 MEQ in SODIUM CHLORIDE 0.9% 50ML 50 ML IV ONE (18:45)
[2017-09-30] MEDS ORDERED: FUROSEMIDE INJ 10 MG/ML 10 ML VIAL IV ONE (18:45)
[2017-09-30] MEDS ORDERED: HYDRALAZINE HCL 20 MG/ML VIAL IV ONE (18:45)
[2017-09-30] MEDS ORDERED: DEXTROSE 50% SYRINGE 50 ML IV STA (18:52)
[2017-09-30] MEDS ORDERED: SODIUM CHLORIDE 0.9% 100 ML ONE (18:58)
[2017-09-30 18:59] LABS: THYROID STIMULATING HORMONE 3.226 uIU/mL (0.350-4.940)
[2017-09-30] MEDS ORDERED: SODIUM BICARBONATE 8.4% INJ 50 ML SYR IV NR (19:00)
[2017-09-30] MEDS ORDERED: INSULIN REGULAR, HUMAN 100 UNIT/1 ML 3ML VIAL IV ONE (19:00)
[2017-09-30] MEDS ORDERED: FUROSEMIDE INJ 10 MG/ML 2 ML VIAL ONE (19:06)
[2017-09-30] MEDS ORDERED: FUROSEMIDE INJ 10 MG/ML 4 ML VIAL ONE (19:06)
[2017-09-30] MEDS ORDERED: ALBUTEROL SULF 0.083% NEB SOLN 3 ML NEB ONE (19:14)
[2017-09-30] MEDS ORDERED: IPRATROPIUM BROMIDE 0.02% 2.5 ML NEB ONE (19:14)
[2017-09-30] MEDS ORDERED: FUROSEMIDE INJ 10 MG/ML 4 ML VIAL IV NR (19:15)
[2017-09-30] MEDS ORDERED: SOD POLYSTYRENE SULFONATE SUSP 15 GM/60 ML BTL PO NR (19:15)
[2017-09-30] MEDS ORDERED: NICARDIPINE HCL SOLN 20 MG in SODIUM CHLORIDE 0.9% 250ML 200 ML IV SCH (19:30)
[2017-09-30] MEDS ORDERED: NICARDIPINE 20MG/200ML PREMIX 200 ML ONE (19:36)
[2017-09-30] MEDS ORDERED: PROMETHAZINE 12.5MG/ NACL 0.9% 12.5 MG/50 ML BAG IV PRN (20:00)
[2017-09-30] MEDS ORDERED: PROMETHAZINE 12.5MG/ NACL 0.9% 12.5 MG/50 ML BAG IV ONE (20:00)
[2017-09-30] MEDS: NICARDIPINE 20MG/200ML PREMIX 200 ML IV SCH ×2 (20:14→21:15)
--- NOTE | 2017-09-30 20:56 | Diagnostic Imaging Report ---
History:Headaches Comparison studies:Head CTs on 08/23/2017 and 09/13/2017 Technique: Axial images were obtained from the skull base to the vertex. Coronal and sagittal images reconstructed from the axial data. Intravenous contrast: None Findings: Scalp/skull: No abnormalities. Extra-axial spaces: No masses. No fluid collections. Brain sulci: Mildly prominent. Ventricles: Mild compensatory dilatation. No hydrocephalus. Parenchyma: Ill-defined hypodensities in the supratentorial white matter are small vessel ischemic changes. Old punctate lacunar insults are centered in the heads of the caudate and in the cerebellar white matter bilaterally. No masses, hemorrhage, acute or chronic cortical vascular insults. Sellar/suprasellar region: No abnormalities. Craniocervical junction: Patent foramen magnum. No Chiari one malformation. Incidental findings: Atherosclerotic calcifications in the carotid siphons and intracranial vertebral arteries. Minimal mucosal thickening in the ethmoid sinuses. Mild bilateral proptosis Impression: No acute abnormalities. No changes when compared to the previous head CTs Chronic findings: 1. Mild generalized volume loss. 2. Mild supratentorial white matter small vessel ischemic changes. 3. Old lacunar insults (head CT of the caudate and cerebellar white matter) Signed by: Dr. Cong Law M.D. on 09/30/2017 8:52 PM
[2017-09-30 21:02] LABS: BILIRUBIN,URINE NEGATIVE (NEGATIVE); CLARITY,URINE CLEAR (CLEAR); COLOR,URINE YELLOW (YELLOW); KETONES,URINE NEGATIVE (NEGATIVE); LEUKOCYTE ESTERASE ,URINE NEGATIVE (NEGATIVE); NITRITE,URINE NEGATIVE (NEGATIVE); PROTEIN,URINE DIPSTICK 3+ (NEGATIVE); URINE UROBILINOGEN 0.2 mg/dL (0.2 - 1)
[2017-09-30 21:06] LABS: BACTERIA,URINE FEW /HPF; EPITHELIAL CELLS,URINE RARE /LPF
[2017-09-30 21:21] VITALS: BP 170/99
[2017-09-30] MEDS ORDERED: SODIUM CHLORIDE 0.9% 50ML 50 ML ONE (22:09)
== END 2017-09-30 21:46 | disposition short-term general hospital (02) ==
LOC: ER 16:58
DX: R06.00 Dyspnea, unspecified (principal); J44.1 Chronic obstructive pulmonary disease with (acute) exacerbation; I50.22 Chronic systolic (congestive) heart failure; N18.9 Chronic kidney disease, unspecified; E87.5 Hyperkalemia; I42.0 Dilated cardiomyopathy; I10 Essential (primary) hypertension
CPT/HCPCS: 36415; 51700; 70450; 71045; 80053; 81001; 82550; 82553; 83690; 83735; 83880; 84100; 84443; 84484; 85025; 85610; 85730; 87086; 93005; 94640; 99285; J0360; J0610; J0692; J1940 ×2; J2405; J2550; J7050; J7799

== ENCOUNTER 2018-08-25 15:40 | Inpatient (IN) | payer MEDICARE ==
[~2018-08-25] VITALS: Ht 160 cm; Wt 42.2 kg
--- OUTSIDE RECORDS SUMMARY | 2018-08-25 15:43 | XMS REPORT | Clinical Summary ---
Author [facility] Organization [facility] Address Unknown Phone Unavailable Care Team Providers Care Insulator Apprentice Name Role Phone Jemal Jett 31 Unavailable Matthew Hallman PCP Meliton Victor 24 Allergies Comments Active Allergy Reactions Severity Noted Date unknown Codeine Nausea And High 07/27/2012 Vomiting, Shortness Of Breath Fluid in ear unknown Furosemide Other (See High 10/20/2012 Comments) Penicillins Rash Low 07/28/2012 Muscle aches Sirolimus Other (See Low 07/28/2012 Comments) Medications End Date Status Medication Sig Dispensed Refills Start Date Active folic acid (FOLVITE) 1 MG Take 1 mg by 0 tablet mouth daily. Active aspirin 81 MG EC tablet Take 81 mg by 0 mouth nightly. Active ferrous sulfate 325 (65 Take 325 mg 0 FE) MG tablet by mouth daily with breakfast. Active vitamin E 800 UNIT Take 800 0 capsule Units by mouth daily. Active atorvastatin (LIPITOR) 80 Take 80 mg by 0 MG tablet mouth daily. Active cetirizine (ZYRTEC) 10 MG Take 10 mg by 0 tablet mouth daily. Active epoetin tomasa Inject 2 mLs 1 mL 0 (EPOGEN,PROCRIT) 3,000 (6,000 Units 7 unit/mL total) injectionIndications: subcutaneousl Anemia, esrd y 3 (three) times a week at bedtime. Active omeprazole (PRILOSEC) 40 Take 40 mg by 0 MG capsule mouth daily. 10/13/2018 Active amLODIPine (NORVASC) 5 MG Take 2 60 tablet 11 tablet tablets (10 8 mg total) by mouth daily. Active cloNIDine HCl (CATAPRES) Take 0.1 mg 0 0.1 MG tablet by mouth 2 (two) times daily. Active magnesium oxide (MAG-OX) Take 400 mg 0 400 mg tablet by mouth 2 (two) times daily. Active citalopram (CELEXA) 40 MG Take 40 mg by 0 tablet mouth daily. 10/25/2018 Active carvedilol (COREG) 25 MG Take 1 tablet 180 tablet 3 tablet (25 mg total) 8 by mouth 2 (two) times daily. 12/08/2018 Active tacrolimus (PROGRAF) 0.5 Take 2 120 capsule 11 MG capsule capsules (1 8 mg total) by mouth 2 (two) times daily with breakfast and dinner. Active CALCIUM CARBONATE Take 1,000 mg 0 (CALCIUM 500 ORAL) by mouth daily. Active UNKNOWN Med Name: 0 Vitamin D intervenous in dialysis. . 05/17/2019 Active mycophenolate (CELLCEPT) Take 1 tablet 60 tablet 11 500 mg tablet (500 mg 8 total) by mouth 2 (two) times daily. 10/12/2017 Discontinued magnesium oxide (MAG-OX) Take 400 mg 0 400 mg tablet by mouth 2 (two) times daily. 10/12/2017 Discontinued traMADol-acetaminophen Take 1 tablet 0 (ULTRACET) 37.5-325 mg by mouth per tablet nightly. 10/12/2017 Discontinued citalopram (CELEXA) 40 MG Take 40 mg by 0 tablet mouth daily. 05/17/2018 Discontinued mycophenolate (CELLCEPT) Take 1 tablet 60 tablet 11 500 mg tablet (500 mg 7 total) by mouth 2 (two) times daily. 10/12/2017 Discontinued tacrolimus (PROGRAF) 0.5 Take 1 0 MG capsule capsule (0.5 7 mg total) by mouth daily. 12/22/2017 Discontinued ergocalciferol Take 1 4 capsule 0 (ERGOCALCIFEROL) 50,000 capsule 7 unit capsule (50,000 Units total) by mouth every 7 days. 10/12/2017 Discontinued cloNIDine HCl (CATAPRES) Take 0.1 mg 0 0.1 MG tablet by mouth 2 (two) times daily. 10/12/2017 Discontinued carvedilol (COREG) 12.5 TAKE ONE 60 tablet 11 MG tablet TABLET BY 7 MOUTH TWICE A DAY WITH BREAKFAST AND DINNER 12/22/2017 Discontinued calcium carbonate-vitamin Take 2 0 D3 (CALCIUM-VITAMIN D) tablets by 500 mg(1,250mg) -200 unit mouth daily. per tablet 10/25/2017 Discontinued carvedilol (COREG) 25 MG Take 1 tablet 60 tablet 11 tablet (25 mg total) 8 by mouth 2 (two) times daily. 12/08/2017 Discontinued tacrolimus (PROGRAF) 0.5 Take 2 0 MG capsule capsules (1 8 mg total) by mouth 2 (two) times daily with breakfast and dinner. 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 However HCV RNA was undetectable in 01/08. [...] 2 diabetes mellitus with complication, without long-term 07/27/2017 current use of insulin H/O stroke without residual deficits 07/27/2017 Anemia of renal disease 07/27/2017 Secondary hyperparathyroidism of renal origin 07/27/2017 JOHN on CPAP 07/27/2017 Left arm swelling 02/14/2017 Overview: Attributed to PTFE AV fistula/graft in left arm. Hemodialysis access, AV graft 02/14/2017 Overview: PFTE graft by Dr Quinn 01/18/2017 Altered mental status, unspecified 01/14/2017 Chronic renal insufficiency 01/13/2017 Hyperlipidemia 01/13/2017 IDDM (insulin dependent diabetes mellitus) 01/13/2017 Macrocytic anemia 01/13/2017 Hypertensive crisis 01/11/2017 Hypertensive emergency 01/10/2017 DILIP (acute kidney injury) 01/10/2017 Chronic kidney disease, stage IV (severe) 06/28/2016 Uncontrolled type 2 diabetes mellitus with complication, with long-term 06/28/2016 current use of insulin Benign hypertension with chronic kidney disease, stage IV 06/28/2016 Normocytic anemia 06/28/2016 Dyslipidemia 06/28/2016 Ankle fracture 06/27/2016 Closed fracture of greater trochanter of right femur 12/18/2015 Overview: UPDATED BY ICD10 SNOMED/IMO UPDATES [...] Edema 02/03/2013 Acute rejection of heart transplant 01/23/2013 Overview: 05/03 RV BX ISHLT II R and C4D+; Treated with plasmaphoresis, IVIG, Rituxand corticosteroid pulse. Vasculopathy of cardiac allograft 01/18/2013 Overview: 12/10/11. Circumflex and RCA. GERD (gastroesophageal reflux disease) 01/18/2013 Overview: On Nexium. Osteoporosis 01/18/2013 Overview: On Fosamax. Immunosuppression 10/18/2012 Overview: Prograf, Cellcept, Prednisone. IDDM (insulin dependent diabetes mellitus) 07/28/2012 Depression 07/28/2012 Hyperlipidemia 07/28/2012 Hypertension 07/28/2012 Peripheral vascular disease 07/28/2012 Overview: 01/18/12 Post left common femoral artery endarterectomy. JOHN (obstructive sleep apnea) 07/28/2012 Anemia 07/28/2012 Status post heart transplantation 07/27/2012 Overview: OHT: 03/28/2010. 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 DSE: Mild anteroseptal hypokinesis with Dobutamine infusion, but interpreted as "negative echocardiographic stress test" ICD9 DX [employer] L ast Assessment & Plan: Relevant Hx: Course: Daily Update: Today's Plan: ESRD (end stage renal disease) Last Assessment & Plan: On HD since 01/08. Likely related to prograf post-OHT. Being listed for renal transplant. ESRD (end stage renal disease) on dialysis Encounters Care Team Description Date Type Specialty Ladonna Hirsch RN Follow-up 06/09/2018 Telephone Transplant Ladonna Hirsch RN 05/17/2018 Orders Only Transplant Ellen Robins Follow-up 04/05/2018 Telephone Transplant Amna Ashton RN ESRD (end stage renal disease) on dialysis (HCC) (Primary Dx); IDDM (insulin dependent diabetes mellitus) (HCC); Essential hypertension 03/15/2018 Orders Only Transplant Ayah Lepe Appointment 03/15/2018 Telephone Transplant Ellen Robins Appointment 03/15/2018 Telephone Transplant Kristine Brown MD Encounter for therapeutic drug level monitoring (Primary Dx); Status post heart transplantation (HCC); Transplant follow-up; Hyperlipidemia, unspecified hyperlipidemia type 12/22/2017 Follow-Up Transplant Breana Day RN Heart Transplant Follow-up 12/22/2017 Telephone Transplant Ayah Lepe Appointment 12/21/2017 Telephone Transplant Ladonna Hirsch RN Follow-up 12/16/2017 Telephone Transplant Ladonna Hirsch RN 12/08/2017 Orders Only Transplant Kristine Brown MD Status post heart transplantation (HCC); Transplant follow-up 10/25/2017 Follow-Up Transplant Ayah Lepe 10/12/2017 Abstract Central Scheduling 10/05/2017 Orders Only General Internal Medicine Marc Hernández MD Saatee, Siavosh, MD Parikh, Tyrell Garza MD Acute encephalopathy; Hyperkalemia; Hypertensive emergency; Acute respiratory failure, unspecified whether with hypoxia or hypercapnia (HCC); Hemoptysis; Acute rejection of heart transplant (HCC); DILIP (acute kidney injury) ([facility]); Altered mental status, unspecified altered mental status type; Anemia of renal disease; Benign hypertension with chronic kidney disease, stage IV (HCC); Chronic kidney disease, unspecified CKD stage; Controlled type 2 diabetes mellitus with complication, without long-term current use of insulin (HCC); ESRD (end stage renal disease) ([facility]); H/O stroke without residual deficits; Hemodialysis access, AV graft ([facility]); Hepatitis C antibody test positive; Hyperlipidemia, unspecified hyperlipidemia type; IDDM (insulin dependent diabetes mellitus) (HCC); Immunosuppression (HCC); Left arm swelling; Macrocytic anemia; Normocytic anemia; JOHN (obstructive sleep apnea); Peripheral vascular disease (HCC); Secondary hyperparathyroidism of renal origin (HCC); Status post heart transplantation (HCC); Uncontrolled type 2 diabetes mellitus with complication, with long-term current use of insulin (HCC); Vasculopathy of cardiac allograft (HCC); Hypertensive crisis; Essential hypertension; Epistaxis; Hypomagnesemia; Pre-transplant evaluation for end stage renal disease; Breast cancer screening; Abnormal blood chemistry 09/30/2017 Hospital Transplant - Encounter 10/12/2017 09/30/2017 Orders Only General Internal Medicine Ellen Robins Follow-up 09/29/2017 Telephone Transplant Lazarus Sauceda MD ESRD (end stage renal disease) (HCC) (Primary Dx); Pre-transplant evaluation for end stage renal disease; Breast cancer screening; Abnormal blood chemistry 09/28/2017 Orders Only Transplant Chari Valdez Procedure (already preformed) 09/22/2017 Telephone Hepatology Juan Umana RN 09/22/2017 Orders Only Transplant Germaine Crowe MD Hepatitis C antibody test positive; Chronic kidney disease, stage IV (severe) (HCC); Uncontrolled type 2 diabetes mellitus with complication, with long-term current use of insulin (HCC); Benign hypertension with chronic kidney disease, stage IV (HCC); DILIP (acute kidney injury) (HCC); Screening for endocrine/metabolic/immunity disorders; ESRD (end stage renal disease) (HCC) 08/24/2017 Office Visit Hepatology after 08/24/2017 Immunizations Name Dates Previously Given Next Due Influenza High Dose 06/30/2016 Preservative Free IM Influenza TIV (IM) 04/24/2017 Family History Medical History Relation Name Comments ALS Daughter Heart attack Father Heart attack Mother Relation Name Status Comments Daughter Father Mother Social History Date Tobacco Use Types Packs/Day Years Used Quit: 11/11/1999 Former Smoker Smokeless Tobacco: Never Used Alcohol Use Drinks/Week oz/Week Comments No Sex Assigned at Date Recorded Not on file Industry Job Start Date Occupation Not on file Not on file Not on file Travel End Travel History Travel Start No recent travel history available. Last Filed Vital Signs Time Taken Vital Sign Reading 12/22/2017 9:58 AM CDT Blood Pressure 148/89 12/22/2017 9:58 AM CDT Pulse 92 12/22/2017 9:58 AM CDT Temperature 36.3 C (97.4 F) 12/22/2017 9:58 AM CDT Respiratory Rate 16 12/22/2017 9:58 AM CDT Oxygen Saturation 97% 10/08/2017 7:23 AM CDT Inhaled Oxygen 21% Concentration 12/22/2017 9:58 AM CDT Weight 50.3 kg (111 lb) 12/22/2017 9:58 AM CDT Height 157.5 cm (5' 2") 12/22/2017 9:58 AM CDT Body Mass Index 20.3 Plan of Treatment Care Team Description Date Type Specialty 10/26/2018 Appointment Radiology 10/26/2018 Appointment Cardiology Kristine Brown MD [id number] [place], [place] [id number] 10/26/2018 Follow-Up Transplant Health Maintenance Due Date Last Done Comments INFLUENZA VACCINE 04/24/2018 06/30/2016 Implants Device Identifier Shelf Expiration Date Model / Serial / Lot Implanted Type Area Manufactur er 09/06/2019 [id number] / [id number] / N/A Grft Vasc Acuseal 6xy51uf Graft/Patc WL GORLia & [id number] - [id number] ASSC:MED Implanted: Qty: 1 on 01/18/2017 by Ailyn Ulloa MD 08/31/2020 [id number] / [id number] / Iol Tecnis [id number] 22.0 [employer] Right: Lens ADV MED [id number] - [id number] [id number] OPTICS Implanted: Qty: 1 on 10/26/2016 by Carlie Bonilla MD 08/02/2020 [id number] / [id number] / Iol Tecnis Zcb00 21.5 [employer] Left: Eye ADV MED [id number] - [id number] [id number] OPTICS Implanted: Qty: 1 on 11/30/2016 by Carlie Bonilla MD Procedures Comments Procedure Name Priority Date/Time Associated Diagnosis RHYTHM STRIP - SCAN 12/22/2017 3:22 PM CDT CBC W/PLT COUNT & AUTO Routine 12/22/2017 Status post heart DIFFERENTIAL 9:52 AM CDT transplantation ([facility]) Transplant follow-up TACROLIMUS LEVEL Routine 12/22/2017 Status post heart 9:52 AM CDT transplantation ([facility]) Transplant follow-up BASIC METABOLIC PANEL (7) STAT 12/22/2017 Status post heart 9:52 AM CDT transplantation ([facility]) Transplant follow-up CBC W/PLT COUNT & AUTO Routine 12/22/2017 Status post heart DIFFERENTIAL 9:52 AM CDT transplantation ([facility]) Transplant follow-up CBC W/PLT COUNT & AUTO Routine 10/25/2017 Status post heart DIFFERENTIAL 11:00 AM CDT transplantation ([facility]) Transplant follow-up TACROLIMUS LEVEL Routine 10/25/2017 Status post heart 11:00 AM CDT transplantation ([facility]) Transplant follow-up BASIC METABOLIC PANEL (7) STAT 10/25/2017 Status post heart 11:00 AM CDT transplantation ([facility]) Transplant follow-up CBC W/PLT COUNT & AUTO Routine 10/25/2017 Status post heart DIFFERENTIAL 11:00 AM CDT transplantation ([facility]) Transplant follow-up RHYTHM STRIP - SCAN 10/13/2017 1:30 PM CDT HLA TYPING CII Routine 10/12/2017 ESRD (end stage renal 1:26 PM CDT disease) ([facility]) Pre-transplant evaluation for end stage renal disease Breast cancer screening Abnormal blood chemistry FLOW PRA CLASS II WITH Routine 10/12/2017 ESRD (end stage renal REFLEX TO ANTIBODY 1:26 PM CDT disease) ([facility]) SPECIFICITY Pre-transplant evaluation for end stage renal disease Breast cancer screening Abnormal blood chemistry FLOW PRA CLASS I WITH Routine 10/12/2017 ESRD (end stage renal REFLEX TO ANTIBODY 1:26 PM CDT disease) ([facility]) SPECIFICITY Pre-transplant evaluation for end stage renal disease Breast cancer screening Abnormal blood chemistry HLA TYPING CI Routine 10/12/2017 ESRD (end stage renal 1:26 PM CDT disease) (HCC) Pre-transplant evaluation for end stage renal disease Breast cancer screening Abnormal blood chemistry POCT-GLUCOSE METER Routine 10/12/2017 12:11 PM CDT POCT-GLUCOSE METER Routine 10/12/2017 9:48 AM CDT XR CHEST 1 VIEW [place] 10/12/2017 PORTABLE/BEDSIDE 8:07 AM CDT CBC W/PLT COUNT & AUTO Routine 10/12/2017 DIFFERENTIAL 6:02 AM CDT TACROLIMUS LEVEL Routine 10/12/2017 6:02 AM CDT CBC W/PLT COUNT & AUTO Routine 10/12/2017 DIFFERENTIAL 6:02 AM CDT PT/APTT Routine 10/12/2017 6:02 AM CDT PHOSPHORUS Routine 10/12/2017 6:02 AM CDT MAGNESIUM Routine 10/12/2017 6:02 AM CDT BASIC METABOLIC PANEL (7) STAT 10/12/2017 6:02 AM CDT POCT-GLUCOSE METER Routine 10/11/2017 9:59 PM CDT POCT-GLUCOSE METER Routine 10/11/2017 4:34 PM CDT POCT-GLUCOSE METER Routine 10/11/2017 11:18 AM CDT XR CHEST 1 VIEW [place] 10/11/2017 PORTABLE/BEDSIDE 8:10 AM CDT POCT-GLUCOSE METER Routine 10/11/2017 7:40 AM CDT (MANUAL DIFFERENTIAL) Routine 10/11/2017 5:14 AM CDT CBC W/PLT COUNT & AUTO Routine 10/11/2017 DIFFERENTIAL 5:14 AM CDT TACROLIMUS LEVEL Routine 10/11/2017 5:14 AM CDT CBC W/PLT COUNT & AUTO Routine 10/11/2017 DIFFERENTIAL 5:14 AM CDT BASIC METABOLIC PANEL (7) Routine 10/11/2017 5:14 AM CDT PROTHROMBIN TIME/INR Routine 10/11/2017 5:14 AM CDT PT/APTT Routine 10/11/2017 5:14 AM CDT PHOSPHORUS Routine 10/11/2017 5:14 AM CDT MAGNESIUM Routine 10/11/2017 5:14 AM CDT POCT-GLUCOSE METER Routine 10/10/2017 9:36 PM CDT POCT-GLUCOSE METER Routine 10/10/2017 5:14 PM CDT XR CHEST 1 [place]IEW [place] 10/10/2017 PORTABLE/BEDSIDE 3:40 PM CDT HEMODIALYSIS INPATIENT Routine 10/10/2017 12:27 PM CDT POCT-GLUCOSE METER Routine 10/10/2017 12:20 PM CDT HEMODIALYSIS INPATIENT Routine 10/10/2017 10:21 AM CDT FERRITIN Routine 10/10/2017 9:34 AM CDT IRON, TIBC, % SAT. Routine 10/10/2017 (WITHOUT FERRITIN) 9:34 AM CDT (MANUAL DIFFERENTIAL) Routine 10/10/2017 5:22 AM CDT CBC W/PLT COUNT & AUTO Routine 10/10/2017 DIFFERENTIAL 5:22 AM CDT TACROLIMUS LEVEL Routine 10/10/2017 5:22 AM CDT CBC W/PLT COUNT & AUTO Routine 10/10/2017 DIFFERENTIAL 5:22 AM CDT BASIC METABOLIC PANEL (7) Routine 10/10/2017 5:22 AM CDT PROTHROMBIN TIME/INR Routine 10/10/2017 5:22 AM CDT PT/APTT Routine 10/10/2017 5:22 AM CDT PHOSPHORUS Routine 10/10/2017 5:22 AM CDT MAGNESIUM Routine 10/10/2017 5:22 AM CDT POCT-GLUCOSE METER Routine 10/09/2017 9:43 PM CDT POCT-GLUCOSE METER Routine 10/09/2017 4:28 PM CDT POCT-GLUCOSE METER Routine 10/09/2017 12:08 PM CDT XR CHEST 1 [place]IEW [place] 10/09/2017 PORTABLE/BEDSIDE 8:17 AM CDT POCT-GLUCOSE METER Routine 10/09/2017 7:49 AM CDT CBC W/PLT COUNT & AUTO Routine 10/09/2017 DIFFERENTIAL 4:24 AM CDT TACROLIMUS LEVEL Routine 10/09/2017 4:24 AM CDT CBC W/PLT COUNT & AUTO Routine 10/09/2017 DIFFERENTIAL 4:24 AM CDT BASIC METABOLIC PANEL (7) Routine 10/09/2017 4:24 AM CDT PROTHROMBIN TIME/INR Routine 10/09/2017 4:24 AM CDT PT/APTT Routine 10/09/2017 4:24 AM CDT PHOSPHORUS Routine 10/09/2017 4:24 AM CDT MAGNESIUM Routine 10/09/2017 4:24 AM CDT POCT-GLUCOSE METER Routine 10/08/2017 9:05 PM CDT POCT-GLUCOSE METER Routine 10/08/2017 6:47 PM CDT POCT-GLUCOSE METER Routine 10/08/2017 12:22 PM CDT XR CHEST 1 [place]IEW [place] 10/08/2017 PORTABLE/BEDSIDE 6:33 AM CDT CBC W/PLT COUNT & AUTO Routine 10/08/2017 DIFFERENTIAL 5:07 AM CDT TACROLIMUS LEVEL Routine 10/08/2017 5:07 AM CDT CBC W/PLT COUNT & AUTO Routine 10/08/2017 DIFFERENTIAL 5:07 AM CDT BASIC METABOLIC PANEL (7) Routine 10/08/2017 5:07 AM CDT LACTIC ACID, ARTERIAL, Routine 10/08/2017 WHOLE BLOOD 5:07 AM CDT PROTHROMBIN TIME/INR Routine 10/08/2017 5:07 AM CDT PT/APTT Routine 10/08/2017 5:07 AM CDT PHOSPHORUS Routine 10/08/2017 5:07 AM CDT MAGNESIUM Routine 10/08/2017 5:07 AM CDT POCT-GLUCOSE METER Routine 10/07/2017 11:55 PM CDT POCT-GLUCOSE METER Routine 10/07/2017 5:55 PM CDT POCT-GLUCOSE METER Routine 10/07/2017 12:49 PM CDT XR CHEST 1 [place]IEW [place] 10/07/2017 PORTABLE/BEDSIDE 5:41 AM CDT TACROLIMUS LEVEL Routine 10/07/2017 4:53 AM CDT CBC W/PLT COUNT & AUTO Routine 10/07/2017 DIFFERENTIAL 4:18 AM CDT PHOSPHORUS Routine 10/07/2017 4:18 AM CDT MAGNESIUM Routine 10/07/2017 4:18 AM CDT CBC W/PLT COUNT & AUTO Routine 10/07/2017 DIFFERENTIAL 4:18 AM CDT BASIC METABOLIC PANEL (7) Routine 10/07/2017 4:18 AM CDT LACTIC ACID, ARTERIAL, Routine 10/07/2017 WHOLE BLOOD 4:18 AM CDT PT/APTT Routine 10/07/2017 4:18 AM CDT POCT-GLUCOSE METER Routine 10/07/2017 12:16 AM CDT POCT-GLUCOSE METER Routine 10/06/2017 5:54 PM CDT POCT-GLUCOSE METER Routine 10/06/2017 11:53 AM CDT CBC W/PLT COUNT & AUTO Routine 10/06/2017 DIFFERENTIAL 10:14 AM CDT PT/APTT Routine 10/06/2017 10:14 AM CDT CBC W/PLT COUNT & AUTO Routine 10/06/2017 DIFFERENTIAL 10:14 AM CDT LACTIC ACID, ARTERIAL, Routine 10/06/2017 WHOLE BLOOD 10:13 AM CDT COMPREHENSIVE METABOLIC Routine 10/06/2017 PANEL 10:13 AM CDT BLOOD GAS, ARTERIAL Routine 10/06/2017 10:11 AM CDT POCT-GLUCOSE METER Routine 10/06/2017 5:49 AM CDT CBC W/PLT COUNT & AUTO Routine 10/06/2017 DIFFERENTIAL 5:29 AM CDT TACROLIMUS LEVEL Routine 10/06/2017 5:29 AM CDT CBC W/PLT COUNT & AUTO Routine 10/06/2017 DIFFERENTIAL 5:29 AM CDT BASIC METABOLIC PANEL (7) Routine 10/06/2017 5:29 AM CDT LACTIC ACID, ARTERIAL, Routine 10/06/2017 WHOLE BLOOD 5:29 AM CDT PROTHROMBIN TIME/INR Routine 10/06/2017 5:29 AM CDT PT/APTT Routine 10/06/2017 5:29 AM CDT PHOSPHORUS Routine 10/06/2017 5:29 AM CDT MAGNESIUM Routine 10/06/2017 5:29 AM CDT XR CHEST 1 [place]IEW [place] 10/06/2017 PORTABLE/BEDSIDE 5:23 AM CDT POCT-GLUCOSE METER Routine 10/06/2017 12:05 AM CDT POCT-GLUCOSE METER Routine 10/05/2017 6:08 PM CDT XR ABDOMEN 1 VIEW Routine 10/05/2017 4:28 PM CDT ULTRAFILTRATION HD CRRT Routine 10/05/2017 4:21 PM CDT XR ABDOMEN 1 VIEW Routine 10/05/2017 1:41 PM CDT POCT-GLUCOSE METER Routine 10/05/2017 12:04 PM CDT TSH/FREE T4 IF INDICATED STAT 10/05/2017 12:04 PM CDT AMMONIA STAT 10/05/2017 12:04 PM CDT BLOOD GAS, ARTERIAL STAT 10/05/2017 11:06 AM CDT ECG 12-LEAD Routine 10/05/2017 10:39 AM CDT Procedure Note - Interface, External Ris In - 10/05/2017 6:11 PM CDT Ventricula r Rate 132 BPM Atrial Rate 132 BPM P-R Interval 126 ms QRS Duration 96 ms Q-T Interval 368 ms QTC Calculatio n(Bazett) 545 ms P [place] 34 degrees R [place] 141 degrees T [place] 53 degrees Sinus tachycardi a Right axis deviation Incomplete right bundle branch block Anterior infarct (cited on or before 8) Abnormal ECG When compared with ECG of 10:38, No significan t change was found ECG 12-LEAD Routine 10/05/2017 10:39 AM CDT ECG 12-LEAD Routine 10/05/2017 10:38 AM CDT Procedure Note - Interface, External Ris In - 10/05/2017 6:10 PM CDT Ventricula r Rate 133 BPM Atrial Rate 133 BPM P-R Interval 132 ms QRS Duration 98 ms Q-T Interval 312 ms QTC Calculatio n(Bazett) 464 ms P [place] 55 degrees R [place] 141 degrees T [place] 50 degrees Sinus tachycardi a Right axis deviation Incomplete right bundle branch block Anterior infarct (cited on or before 8) Abnormal ECG When compared with ECG of 23:14, Incomplete right bundle branch block is now Present T wave inversion more evident in Anterior leads XR CHEST 1 [place]IEW [place] 10/05/2017 PORTABLE/BEDSIDE 5:20 AM CDT CBC W/PLT COUNT & AUTO Routine 10/05/2017 DIFFERENTIAL 5:19 AM CDT TACROLIMUS LEVEL Routine 10/05/2017 5:19 AM CDT CBC W/PLT COUNT & AUTO Routine 10/05/2017 DIFFERENTIAL 5:19 AM CDT BASIC METABOLIC PANEL (7) Routine 10/05/2017 5:19 AM CDT LACTIC ACID, ARTERIAL, Routine 10/05/2017 WHOLE BLOOD 5:19 AM CDT PROTHROMBIN TIME/INR Routine 10/05/2017 5:19 AM CDT PT/APTT Routine 10/05/2017 5:19 AM CDT PHOSPHORUS Routine 10/05/2017 5:19 AM CDT MAGNESIUM Routine 10/05/2017 5:19 AM CDT POCT-GLUCOSE METER Routine 10/05/2017 12:12 AM CDT HEMODIALYSIS INPATIENT Routine 10/04/2017 7:53 PM CDT TRANSFUSION SERVICE 10/04/2017 REPORT - SCAN 5:51 PM CDT MISCELLANEOUS LAB ORDER Routine 10/04/2017 1:55 PM CDT POCT-GLUCOSE METER Routine 10/04/2017 12:21 PM CDT XR CHEST 1 [place]IEW [place] 10/04/2017 PORTABLE/BEDSIDE 5:46 AM CDT CBC W/PLT COUNT & AUTO Routine 10/04/2017 DIFFERENTIAL 5:29 AM CDT TACROLIMUS LEVEL Routine 10/04/2017 5:29 AM CDT VANCOMYCIN LEVEL, RANDOM Routine 10/04/2017 5:29 AM CDT CBC W/PLT COUNT & AUTO Routine 10/04/2017 DIFFERENTIAL 5:29 AM CDT BASIC METABOLIC PANEL (7) Routine 10/04/2017 5:29 AM CDT LACTIC ACID, ARTERIAL, Routine 10/04/2017 WHOLE BLOOD 5:29 AM CDT PROTHROMBIN TIME/INR Routine 10/04/2017 5:29 AM CDT PT/APTT Routine 10/04/2017 5:29 AM CDT PHOSPHORUS Routine 10/04/2017 5:29 AM CDT MAGNESIUM Routine 10/04/2017 5:29 AM CDT POCT-GLUCOSE METER Routine 10/04/2017 12:08 AM CDT PREPARE LEUKO-REDUCED RBC [place] 10/03/2017 11:54 PM CDT BLOOD GAS, ARTERIAL STAT 10/03/2017 10:11 PM CDT XR CHEST 1 VIEW STAT 10/03/2017 PORTABLE/BEDSIDE 8:40 PM CDT MAGNESIUM Routine 10/03/2017 8:02 PM CDT PHOSPHORUS Routine 10/03/2017 8:02 PM CDT BLOOD GAS, ARTERIAL Routine 10/03/2017 8:02 PM CDT BASIC METABOLIC PANEL (7) Routine 10/03/2017 8:02 PM CDT TRANSFUSION SERVICE 10/03/2017 REPORT - SCAN 5:41 PM CDT POCT-GLUCOSE METER Routine 10/03/2017 5:10 PM CDT BLOOD GAS, ARTERIAL STAT 10/03/2017 4:14 PM CDT BLOOD GAS, ARTERIAL STAT 10/03/2017 2:41 PM CDT HEMOGLOBIN AND HEMATOCRIT Routine 10/03/2017 2:[address] BRAIN WITHOUT IV STAT 10/03/2017 CONTRAST 12:03 PM CDT POCT-GLUCOSE METER Routine 10/03/2017 11:43 AM CDT (MANUAL DIFFERENTIAL) Routine 10/03/2017 6:54 AM CDT CBC W/PLT COUNT & AUTO STAT 10/03/2017 DIFFERENTIAL 6:54 AM CDT MAGNESIUM STAT 10/03/2017 6:54 AM CDT PHOSPHORUS STAT 10/03/2017 6:54 AM CDT PT/APTT STAT 10/03/2017 6:54 AM CDT LACTIC ACID, ARTERIAL, STAT 10/03/2017 WHOLE BLOOD 6:54 AM CDT BASIC METABOLIC PANEL (7) STAT 10/03/2017 6:54 AM CDT CBC W/PLT COUNT & AUTO STAT 10/03/2017 DIFFERENTIAL 6:54 AM CDT TACROLIMUS LEVEL Routine 10/03/2017 5:26 AM CDT BLOOD GAS, ARTERIAL STAT 10/03/2017 5:26 AM CDT XR CHEST 1 [place]IEW [place] 10/03/2017 PORTABLE/BEDSIDE 5:22 AM CDT HEPATIC FUNCTION PANEL Routine 10/03/2017 3:28 AM CDT POCT-GLUCOSE METER Routine 10/03/2017 12:36 AM CDT HEMOGLOBIN AND HEMATOCRIT Routine 10/02/2017 8:18 PM CDT BLOOD CULTURE STAT 10/02/2017 8:17 PM CDT POCT-GLUCOSE METER Routine 10/02/2017 8:03 PM CDT XR CHEST 1 VIEW STAT 10/02/2017 PORTABLE/BEDSIDE 7:58 PM CDT POCT-GLUCOSE METER Routine 10/02/2017 5:26 PM CDT BLOOD CULTURE STAT 10/02/2017 5:22 PM CDT BLOOD CULTURE STAT 10/02/2017 5:22 PM CDT HEMOGLOBIN AND HEMATOCRIT [place] 10/02/2017 1:58 PM CDT POCT-GLUCOSE METER Routine 10/02/2017 12:42 PM CDT TRANSFUSE LEUKO-REDUCED [place] 10/02/2017 RED BLOOD CELLS 11:06 AM CDT TYPE AND SCREEN, STAT 10/02/2017 AUTOMATED 9:04 AM CDT HEMOGLOBIN AND HEMATOCRIT [place] 10/02/2017 7:54 AM CDT XR CHEST 1 VIEW [place] 10/02/2017 PORTABLE/BEDSIDE 7:45 AM CDT XR CHEST 1 VIEW Routine 10/02/2017 PORTABLE/BEDSIDE 5:41 AM CDT POCT-GLUCOSE METER Routine 10/02/2017 5:13 AM CDT BLOOD GAS, ARTERIAL STAT 10/02/2017 4:38 AM CDT CBC W/PLT COUNT & AUTO Routine 10/02/2017 DIFFERENTIAL 4:35 AM CDT VANCOMYCIN LEVEL, RANDOM Routine 10/02/2017 4:35 AM CDT TACROLIMUS LEVEL [place] 10/02/2017 4:35 AM CDT CBC W/PLT COUNT & AUTO Routine 10/02/2017 DIFFERENTIAL 4:35 AM CDT MAGNESIUM Routine 10/02/2017 4:35 AM CDT PROTHROMBIN TIME/INR Routine 10/02/2017 4:35 AM CDT HEPATIC FUNCTION PANEL Routine 10/02/2017 4:35 AM CDT CALCIUM, IONIZED Routine 10/02/2017 4:35 AM CDT BASIC METABOLIC PANEL (7) Routine 10/02/2017 4:35 AM CDT POCT-GLUCOSE METER Routine 10/02/2017 12:16 AM GEOLOGICAL SPECIALIST POCT-GLUCOSE METER Routine 10/01/2017 6:24 PM GEOLOGICAL SPECIALIST ECHOCARDIOGRAM REPORT - 10/01/2017 SCAN 6:20 PM GEOLOGICAL SPECIALIST BLOOD GAS, ARTERIAL STAT 10/01/2017 4:07 PM GEOLOGICAL SPECIALIST CMV PCR, QUANTITATIVE STAT 10/01/2017 2:33 PM GEOLOGICAL SPECIALIST 2D ECHO W/ DOPPLER STAT 10/01/2017 (CW/PW/COLOR) 1:18 PM GEOLOGICAL SPECIALIST POCT-GLUCOSE METER Routine 10/01/2017 1:07 PM GEOLOGICAL SPECIALIST MISCELLANEOUS LAB ORDER Routine 10/01/2017 12:[address] ABDOMEN/PELVIS WITH IV STAT 10/01/2017 CONTRAST 11:[address] CHEST WITH IV CONTRAST STAT 10/01/2017 11:05 AM GEOLOGICAL SPECIALIST XR CHEST 1 VIEW STAT 10/01/2017 PORTABLE/BEDSIDE 9:56 AM GEOLOGICAL SPECIALIST BRONCHIAL CULTURE + GRAM Routine 10/01/2017 STAIN 9:40 AM GEOLOGICAL SPECIALIST FUNGUS CULTURE + SMEAR [place] 10/01/2017 9:40 AM GEOLOGICAL SPECIALIST PLATELET COUNT STAT 10/01/2017 8:20 AM GEOLOGICAL SPECIALIST FIBRINOGEN STAT 10/01/2017 8:20 AM GEOLOGICAL SPECIALIST APTT STAT 10/01/2017 8:20 AM GEOLOGICAL SPECIALIST PROTHROMBIN TIME/INR STAT 10/01/2017 8:20 AM GEOLOGICAL SPECIALIST POCT-GLUCOSE METER Routine 10/01/2017 7:51 AM GEOLOGICAL SPECIALIST RESPIRATORY PANEL [facility] Add-On 10/01/2017 7:05 AM GEOLOGICAL SPECIALIST TACROLIMUS LEVEL STAT 10/01/2017 6:47 AM GEOLOGICAL SPECIALIST LACTIC ACID, ARTERIAL, STAT 10/01/2017 WHOLE BLOOD 6:47 AM GEOLOGICAL SPECIALIST XR CHEST 1 VIEW STAT 10/01/2017 PORTABLE/BEDSIDE 6:46 AM GEOLOGICAL SPECIALIST XR ABDOMEN 1 VIEW STAT 10/01/2017 6:07 AM GEOLOGICAL SPECIALIST TACROLIMUS LEVEL Routine 10/01/2017 5:01 AM GEOLOGICAL SPECIALIST HEMODIALYSIS INPATIENT Routine 10/01/2017 4:28 AM GEOLOGICAL SPECIALIST BLOOD CULTURE Routine 10/01/2017 4:14 AM GEOLOGICAL SPECIALIST CBC W/PLT COUNT & AUTO Routine 10/01/2017 DIFFERENTIAL 4:07 AM GEOLOGICAL SPECIALIST CBC W/PLT COUNT & AUTO Routine 10/01/2017 DIFFERENTIAL 4:07 AM GEOLOGICAL SPECIALIST MAGNESIUM Routine 10/01/2017 4:07 AM GEOLOGICAL SPECIALIST PROTHROMBIN TIME/INR Routine 10/01/2017 4:07 AM GEOLOGICAL SPECIALIST HEPATIC FUNCTION PANEL Routine 10/01/2017 4:07 AM GEOLOGICAL SPECIALIST CALCIUM, IONIZED Routine 10/01/2017 4:07 AM GEOLOGICAL SPECIALIST BASIC METABOLIC PANEL (7) Routine 10/01/2017 4:07 AM GEOLOGICAL SPECIALIST HEPATITIS B SURFACE Routine 10/01/2017 ANTIGEN 12:35 AM GEOLOGICAL SPECIALIST MAGNESIUM Routine 10/01/2017 12:35 AM GEOLOGICAL SPECIALIST BASIC METABOLIC PANEL (7) Routine 10/01/2017 12:35 AM GEOLOGICAL SPECIALIST BLOOD CULTURE Routine 10/01/2017 12:29 AM GEOLOGICAL SPECIALIST XR CHEST 1 VIEW Routine 10/01/2017 PORTABLE/BEDSIDE 12:00 AM GEOLOGICAL SPECIALIST URINALYSIS W/ MICROSCOPIC Routine 09/30/2017 11:41 PM GEOLOGICAL SPECIALIST URINE CULTURE Routine 09/30/2017 11:41 PM GEOLOGICAL SPECIALIST HGB/HCT (H&H) - STAT LAB STAT 09/30/2017 11:35 PM GEOLOGICAL SPECIALIST GLUCOSE-STAT LAB STAT 09/30/2017 11:35 PM GEOLOGICAL SPECIALIST POTASSIUM-STAT LAB STAT 09/30/2017 11:35 PM GEOLOGICAL SPECIALIST SODIUM NA-STAT LAB STAT 09/30/2017 11:35 PM GEOLOGICAL SPECIALIST BLOOD GAS, ARTERIAL STAT 09/30/2017 11:35 PM GEOLOGICAL SPECIALIST RRL CRITICAL LABS STAT 09/30/2017 (ABG,NA,K,H&H,GLUCOSE) 11:35 PM GEOLOGICAL SPECIALIST CBC W/PLT COUNT & AUTO Routine 09/30/2017 DIFFERENTIAL 11:33 PM GEOLOGICAL SPECIALIST CBC W/PLT COUNT & AUTO Routine 09/30/2017 DIFFERENTIAL 11:33 PM GEOLOGICAL SPECIALIST PROTHROMBIN TIME/INR Routine 09/30/2017 11:33 PM GEOLOGICAL SPECIALIST CALCIUM, IONIZED Routine 09/30/2017 11:33 PM GEOLOGICAL SPECIALIST BLOOD GAS, VENOUS STAT 09/30/2017 11:33 PM GEOLOGICAL SPECIALIST ECG 12-LEAD Routine 09/30/2017 11:14 PM GEOLOGICAL SPECIALIST POCT-GLUCOSE METER Routine 09/30/2017 11:12 PM GEOLOGICAL SPECIALIST CBC W/PLT COUNT & AUTO Routine 08/24/2017 Hepatitis C antibody test DIFFERENTIAL 12:44 PM GEOLOGICAL SPECIALIST positive Chronic kidney disease, stage IV (severe) (HCC) Uncontrolled type 2 diabetes mellitus with complication, with long-term current use of insulin (HCC) Benign hypertension with chronic kidney disease, stage IV (HCC) DILIP (acute kidney injury) (HCC) Screening for endocrine/metabolic/immun ity disorders ESRD (end stage renal disease) (HCC) TSH Routine 08/24/2017 Hepatitis C antibody test 12:44 PM GEOLOGICAL SPECIALIST positive Chronic kidney disease, stage IV (severe) (HCC) Uncontrolled type 2 diabetes mellitus with complication, with long-term current use of insulin (HCC) Benign hypertension with chronic kidney disease, stage IV (HCC) DILIP (acute kidney injury) (HCC) Screening for endocrine/metabolic/immun ity disorders ESRD (end stage renal disease) (HCC) HEPATITIS C GENOTYPE Routine 08/24/2017 Hepatitis C antibody test 12:44 PM GEOLOGICAL SPECIALIST positive Chronic kidney disease, stage IV (severe) (HCC) Uncontrolled type 2 diabetes mellitus with complication, with long-term current use of insulin (HCC) Benign hypertension with chronic kidney disease, stage IV (HCC) DILIP (acute kidney injury) (HCC) Screening for endocrine/metabolic/immun ity disorders ESRD (end stage renal disease) (HCC) GAMMA GLUTAMYL Routine 08/24/2017 Hepatitis C antibody test TRANSFERASE (GGT) 12:44 PM GEOLOGICAL SPECIALIST positive Chronic kidney disease, stage IV (severe) (HCC) Uncontrolled type 2 diabetes mellitus with complication, with long-term current use of insulin (HCC) Benign hypertension with chronic kidney disease, stage IV (HCC) DILIP (acute kidney injury) (HCC) Screening for endocrine/metabolic/immun ity disorders ESRD (end stage renal disease) (HCC) HEPATITIS A ANTIBODY, IGG Routine 08/24/2017 Hepatitis C antibody test 12:44 PM GEOLOGICAL SPECIALIST positive Chronic kidney disease, stage IV (severe) (HCC) Uncontrolled type 2 diabetes mellitus with complication, with long-term current use of insulin (HCC) Benign hypertension with chronic kidney disease, stage IV (HCC) DILIP (acute kidney injury) (HCC) Screening for endocrine/metabolic/immun ity disorders ESRD (end stage renal disease) (HCC) HEPATITIS C PCR, Routine 08/24/2017 Hepatitis C antibody test QUANTITATIVE 12:44 PM GEOLOGICAL SPECIALIST positive Chronic kidney disease, stage IV (severe) (HCC) Uncontrolled type 2 diabetes mellitus with complication, with long-term current use of insulin (HCC) Benign hypertension with chronic kidney disease, stage IV (HCC) DILIP (acute kidney injury) (HCC) Screening for endocrine/metabolic/immun ity disorders ESRD (end stage renal disease) (HCC) ALPHA FETOPROTEIN (AFP), Routine 08/24/2017 Hepatitis C antibody test TUMOR MARKER 12:44 PM GEOLOGICAL SPECIALIST positive Chronic kidney disease, stage IV (severe) (HCC) Uncontrolled type 2 diabetes mellitus with complication, with long-term current use of insulin (HCC) Benign hypertension with chronic kidney disease, stage IV (HCC) DILIP (acute kidney injury) (HCC) Screening for endocrine/metabolic/immun ity disorders ESRD (end stage renal disease) (HCC) PROTHROMBIN TIME/INR Routine 08/24/2017 Hepatitis C antibody test 12:44 PM GEOLOGICAL SPECIALIST positive Chronic kidney disease, stage IV (severe) (HCC) Uncontrolled type 2 diabetes mellitus with complication, with long-term current use of insulin (HCC) Benign hypertension with chronic kidney disease, stage IV (HCC) DILIP (acute kidney injury) (HCC) Screening for endocrine/metabolic/immun ity disorders ESRD (end stage renal disease) (HCC) CBC W/PLT COUNT & AUTO Routine 08/24/2017 Hepatitis C antibody test DIFFERENTIAL 12:44 PM GEOLOGICAL SPECIALIST positive Chronic kidney disease, stage IV (severe) (HCC) Uncontrolled type 2 diabetes mellitus with complication, with long-term current use of insulin (HCC) Benign hypertension with chronic kidney disease, stage IV (HCC) DILIP (acute kidney injury) (HCC) Screening for endocrine/metabolic/immun ity disorders ESRD (end stage renal disease) (HCC) HEPATIC FUNCTION PANEL Routine 08/24/2017 Hepatitis C antibody test 12:44 PM GEOLOGICAL SPECIALIST positive Chronic kidney disease, stage IV (severe) (HCC) Uncontrolled type 2 diabetes mellitus with complication, with long-term current use of insulin (HCC) Benign hypertension with chronic kidney disease, stage IV (HCC) DILIP (acute kidney injury) (HCC) Screening for endocrine/metabolic/immun ity disorders ESRD (end stage renal disease) (HCC) BASIC METABOLIC PANEL (7) Routine 08/24/2017 Hepatitis C antibody test 12:44 PM GEOLOGICAL SPECIALIST positive Chronic kidney disease, stage IV (severe) (HCC) Uncontrolled type 2 diabetes mellitus with complication, with long-term current use of insulin (HCC) Benign hypertension with chronic kidney disease, stage IV (HCC) DILIP (acute kidney injury) (HCC) Screening for endocrine/metabolic/immun ity disorders ESRD (end stage renal disease) (HCC) after 08/24/2017 Results * RHYTHM STRIP - SCAN (12/22/2017 3:22 PM CDT) Only the most recent of 2 results within the time period is included. Narrative Performed At * CBC with platelet count + automated diff (12/22/2017 9:52 AM CDT) Only the most recent of 17 results within the time period is included. WBC 6.0 3.5 - 10.5 K/L [facility] RBC 4.19 3.93 - 5.22 M/L [facility] Hemoglobin 13.8 11.2 - 15.7 GM/DL [facility] Hematocrit 43.7 34.1 - 44.9 % [facility] MCV 104.3 (H) 79.4 - 94.8 fL [facility] MCH 32.9 (H) 25.6 - 32.2 pg [facility] MCHC 31.6 (L) 32.2 - 35.5 GM/DL [facility] RDW 14.4 11.7 - 14.4 % [facility] Platelets 239 150 - 450 K/CU MM [facility] MPV 8.8 (L) 9.4 - 12.3 fL [facility] nRBC 0 0 - 0 /100 WBC [facility] % Neutros 60 % [facility] % Lymphs 30 % [facility] % Monos 8 % [facility] % Eos 1 % [facility] % Baso 1 % [facility] # Neutros 3.60 1.56 - 6.13 K/L [facility] # Lymphs 1.81 1.18 - 3.74 K/L [facility] # Monos 0.49 (H) 0.24 - 0.36 K/L [facility] # Eos 0.05 0.04 - 0.36 K/L [facility] # Baso 0.04 0.01 - 0.08 K/L [facility] Immature 0 0 - 1 % [facility] Granulocytes-[facility] Specimen Blood Performing Organization Address City/State/Zipcode Phone Number [facility] [address] [place] [address] MEDICAL [facility]ENTER * Tacrolimus level (12/22/2017 9:52 AM CDT) Only the most recent of 15 results within the time period is included. Tacrolimus Lvl 10.3 10.0 - 20.0 ng/mL [facility] Specimen Blood Performing Organization Address City/[facility]/Zipcode Phone Number [facility] [address] [place] [address] [facility] * Basic Metabolic Panel (12/22/2017 9:52 AM CDT) Only the most recent of 17 results within the time period is included. Sodium 136 136 - 145 meq/L [facility] Potassium 5.3 (H) 3.5 - 5.1 meq/L [facility] Chloride 94 (L) 98 - 107 meq/L [facility] CO2 28 22 - 29 meq/L [facility] BUN 71 (H) 7 - 21 mg/dL [facility] Creatinine 5.66 (H) 0.57 - 1.25 mg/dL [facility] Glucose 300 (H) 70 - 105 mg/dL [facility] Calcium 9.0 8.4 - 10.2 mg/dL [facility] EGFR 8Comment: ESTIMATED GFR IS NOT mL/min/1.73 sq m [facility] ACCURATE CREATININE [facility] CLEARANCE IN PREDICTING GLOMERULAR FILTRATION RATE. ESTIMATED GFR IS NOT APPLICABLE FOR DIALYSIS PATIENTS. Specimen Blood Performing Organization Address City/[facility]/Zipcode Phone Number [facility] [address] [place] [address] [facility] * HLA TYPING CII (10/12/2017 1:26 PM CDT) HLA-DR AG1 7 [facility] HLA TESTING HLA-DR AG2 8 [facility] HLA TESTING HLA-DR AG3-1 [facility] HLA TESTING HLA-DR AG3-2 [facility] HLA TESTING HLA-DR AG4-1 53 [facility] HLA TESTING HLA-DR AG4-2 [facility] HLA TESTING HLA-DR AG5-1 [facility] HLA TESTING HLA-DR AG5-2 [facility] HLA TESTING HLA-DQA1 AG 1-1 02 [facility] HLA TESTING HLA-DQA1 AG 1-2 04 [facility] HLA TESTING HLA-DQB1 AG 1-1 2 [facility] HLA TESTING HLA-DQB1 AG 1-2 4 [facility] HLA TESTING HLA-DPA1 AG 1-1 01 [facility] HLA TESTING HLA-DPA1 AG 1-2 01 [facility] HLA TESTING HLA-DPB1 AG 1-1 03:01/104: [facility] HLA TESTING HLA-DPB1 AG 1-2 04:01 [facility] TEST[facility] HLA-AG Notes [facility] HLA-AG Report Comments [facility] TEST[facility] Specimen Blood - Arm, Right Performing Organization Address City/[facility] Phone Number [facility] HLA TESTING ONE [facility] [address], [address]: [id number], [place] [address] CLIA#[id number] CAP#[id number] UNOS#[id number] [facility] HLA TESTING ONE [facility] [address], [address]: [id number] [place] [address] * HLA TYPING CI (10/12/2017 1:26 PM CDT) HLA-A AG1 3 [facility] HLA TESTING HLA-A AG2 29 [facility] HLA TESTING HLA-B AG1 60 [facility] HLA TESTING HLA-B AG2 45 [facility] HLA TESTING HLA-C AG1 10 [facility] HLA TESTING HLA-C AG2 6 [facility] HLA TESTING HLA-B BW1 6 [facility] HLA TESTING HLA-B BW2 6 [facility] HLA TESTING HLA-AG Notes [facility] HLA TESTING HLA-AG Report Comments [facility] HLA TEST[facility] Specimen Blood - Arm, Right Performing Organization Address [facility] Phone Number [facility] HLA TESTING ONE [facility] [address], [address]: [id number], [place] [address] CLIA#[id number] CAP#[id number] UNOS#[id number] [facility] HLA TESTING ONE [facility] [address], [place]: [id number] [place] [address] * FLOW PRA CLASS II WITH REFLEX TO ANTIBODY SPECIFICITY (10/12/2017 1:26 PM CDT) Flow Class II Percent 0 [facility] HLA TESTING Positive Flow Class Report [facility] HLA TEST[facility] Comments Specimen Blood - Arm, Right Performing Organization Address [facility] Phone Number [facility] HLA TESTING ONE [facility] [address], [address]: [id number], [place] [address] CLIA#[id number] CAP#[id number] UNOS#[id number] [facility] HLA TESTING ONE [facility] [address], [address]: [id number] [place] [address] * FLOW PRA CLASS I WITH REFLEX TO ANTIBODY SPECIFICITY (10/12/2017 1:26 PM CDT) Flow Class I Percent 0 [facility] HLA TESTING Positive Flow Class Report [facility] TEST[facility] Comments Specimen Blood - Arm, Right Performing Organization Address City/State/Zipcode Phone Number [facility] HLA TESTING ONE [facility] [address], [address]: [id number], [place] [address] CLIA#[id number] CAP#[id number] UNOS#[id number] [facility] HLA TESTING ONE [facility] [address], [place]: [id number] [place] [address] * POC-Glucose meter (10/12/2017 12:11 PM CDT) Only the most recent of 41 results within the time period is included. POC-Glucose Meter 128 (H)Comment: TESTED AT 70 - 110 mg/dL [facility] [address] [place] [id number] Specimen Blood Performing Organization Address City/State/Zipcode Phone Number [address] [id number] [phone] [place] [address] * XR chest 1 view portable / bedside (10/12/2017 8:07 AM CDT) Only the most recent of 17 results within the time period is included. Narrative Performed At FINAL REPORT GE RIS Chest one view AP 10/12/2017 8:20 AM CLINICAL INDICATION: pulmonary congestion COMPARISON: 10/11/2017 IMPRESSION: Support hardware is unchanged in position. Cardiomediastinal contours are stable. There is central pulmonary vasculature congestion without remarkable peripheral edema. There is bibasilar subsegmental atelectasis. Signed: Ronal Lacey MD Report Verified Date/Time:10/12/2017 08:21:18 Reading Location: [facility] Radiology Reading Room Procedure Note Interface, External Ris In - 10/12/2017 8:31 AM CDT FINAL REPORT Chest one view AP 10/12/2017 8:20 AM CLINICAL INDICATION: pulmonary congestion COMPARISON: 10/11/2017 IMPRESSION: Support hardware is unchanged in position. Cardiomediastinal contours are stable. There is central pulmonary vasculature congestion without remarkable peripheral edema. There is bibasilar subsegmental atelectasis. Signed: Ronal Lacey MD Report Verified Date/Time: 10/12/2017 08:21:18 Reading Location: [facility] Reading Room Performing Organization Address City/[facility] Phone Number GE [facility]IS * PT/aPTT (10/12/2017 6:02 AM CDT) Only the most recent of 11 results within the time period is included. Protime 13.6 11.7 - 14.7 seconds [facility] INR 1.0 <=5.9 [facility] PTT 31.2 22.5 - 36.0 seconds [facility] Specimen Blood - Arm, Right Narrative Performed At RECOMMENDED COUMADIN/WARFARIN INR THERAPY RANGES [facility] STANDARD DOSE: 2.0 - 3.0 Includes: PROPHYLAXIS for venous thrombosis, [facility] systemic embolization; TREATMENT for venous thrombosis and/or pulmonary embolus. HIGH RISK: Target INR is 2.5-3.5 for patients with mechanical heart valves. Performing Organization Address [facility] Phone Number [address] * Phosphorus (10/12/2017 6:02 AM CDT) Only the most recent of 11 results within the time period is included. Phosphorus 3.6 2.3 - 4.7 mg/dL [facility] Specimen Blood - Arm, Right Performing Organization Address [facility] Clinicc[facility] Phone Number [facility] [address] [place] [address] [facility] * Magnesium (10/12/2017 6:02 AM CDT) Only the most recent of 14 results within the time period is included. Magnesium 1.8 1.6 - 2.6 mg/dL [facility] Specimen Blood - Arm, Right Performing Organization Address City/[facility] Phone Number [facility] [address], [place] [phone] [facility] * Manual Differential (10/11/2017 5:14 AM CDT) Only the most recent of 3 results within the time period is included. Total Counted [facility] WBC Morphology Normal [facility] Platelet Morphology Normal [facility] RBC Morphology Normal [facility] Specimen Blood - Arm, Left Performing Organization Address City/[facility] Phone Number [address] [address] [facility] * Prothrombin time/INR (10/11/2017 5:14 AM CDT) Only the most recent of 12 results within the time period is included. Protime 13.8 11.7 - 14.7 seconds [facility] INR 1.1 <=5.9 [facility] Specimen Blood - Arm, Left Narrative Performed At RECOMMENDED COUMADIN/WARFARIN INR THERAPY RANGES [facility] STANDARD DOSE: 2.0 - 3.0 Includes: PROPHYLAXIS for venous thrombosis, [facility] systemic embolization; TREATMENT for venous thrombosis and/or pulmonary embolus. HIGH RISK: Target INR is 2.5-3.5 for patients with mechanical heart valves. Performing Organization Address City/[facility]/Zipcode Phone Number [address] [address] [facility] * HEMODIALYSIS INPATIENT (10/10/2017 12:27 PM CDT) Narrative Performed At Ghassan Sumner RN 10/10/2017 12:27 PM Lab Results Component Value Date WBC 5.7 10/10/2017 HGB 7.3 (L) 10/10/2017 HCT 23.2 (L) 10/10/2017 MCV 99.6 (H) 10/10/2017 PLT 240 10/10/2017 Lab Results Component Value Date GLUCOSE 106 (H) 10/10/2017 CALCIUM 8.4 10/10/2017 NA 133 (L) 10/10/2017 K 5.2 (H) 10/10/2017 CO2 23 10/10/2017 CL 98 10/10/2017 BUN 76 (H) 10/10/2017 CREATININE 5.43 (H) 10/10/2017 Lab Results Component Value Date HEPBSAG Nonreactive 10/01/2017 Vitals: 10/10/17 1142 BP: 113/58 Pulse: 96 Resp: 13 Temp: 98.1 F (36.7 C) SpO2: HD x 3 hrs and 45min. UF net 1L. Pt was awake and alert. V/S stable. Treatment tolerated well. * HEMODIALYSIS INPATIENT (10/10/2017 10:21 AM CDT) Narrative Performed At Heidy Gooden MD 10/10/2017 10:21 AM Inpatient Hemodialysis Procedure Note Subjective:No SOB or GI complaints. Says she started eating. Says edw is in 30s. Asking for transplant w/u completion. Doesn't want to go to [place]. Objective: Patient seen and examined on HD Vitals: 135/64 93 General Appearance: alert, on RA, in NAD Chest: clear to auscultation, no wheezes, rales or rhonchi, symmetric air entry Heart: normal rate, regular rhythm, normal S1, S2, no murmurs, rubs, clicks or gallops no JVD Extremities: no pedal edema, no clubbing or cyanosis Hemodialysis prescription: Dialyzer: [id number] Blood flow rate: 350 ml/min Dialysate flow rate: 700 ml/min Duration: 4hr--> 3 h 45 m Ultrafiltration: 1300 cc Potassium Bath: 2k standard Predialysis weight:?47 kg (nurses paper notes bedside) Estimated Dry weight: ? LABS: Results for orders placed or performed during the hospital encounter of 09/30/17 (from the past 24 hour(s)) POC-Glucose meter Status: Abnormal Collection Time: 10/09/17 12:08 PM Result Value Ref Range POC-Glucose Meter 254 (H) 70 - 110 mg/dL POC-Glucose meter Status: Abnormal Collection Time: 184:28 PM Result Value Ref Range POC-Glucose Meter 198 (H) 70 - 110 mg/dL POC-Glucose meter Status: Abnormal Collection Time: 189:43 PM Result Value Ref Range POC-Glucose Meter 192 (H) 70 - 110 mg/dL PT/aPTT Status: Normal Collection Time: :22 AM Result Value Ref Range Protime 14.5 11.7 - 14.7 seconds INR 1.1 <=5.9 PTT 31.7 22.5 - 36.0 seconds Prothrombin time/INR Status: Normal Collection Time: :22 AM Result Value Ref Range Protime 14.5 11.7 - 14.7 seconds INR 1.1 <=5.9 CBC with platelet count + automated diff Status: Abnormal Collection Time: :22 AM Result Value Ref Range WBC 5.7 3.5 - 10.5 K/L RBC 2.33 (L) 3.93 - 5.22 M/L Hemoglobin 7.3 (L) 11.2 - 15.7 GM/DL Hematocrit 23.2 (L) 34.1 - 44.9 % MCV 99.6 (H) 79.4 - 94.8 fL MCH 31.3 25.6 - 32.2 pg MCHC 31.5 (L) 32.2 - 35.5 GM/DL RDW 15.8 (H) 11.7 - 14.4 % Platelets 240 150 - 450 K/CU MM MPV 9.5 9.4 - 12.3 fL nRBC 0 0 - 0 /100 WBC % Neutros 34 % % Lymphs 46 % % Monos 15 % % Eos 2 % % Baso 1 % # Neutros 1.94 1.56 - 6.13 K/L # Lymphs 2.61 1.18 - 3.74 K/L # Monos 0.87 (H) 0.24 - 0.36 K/L # Eos 0.12 0.04 - 0.36 K/L # Baso 0.03 0.01 - 0.08 K/L Immature Granulocytes-Relative 2 (H) 0 - 1 % Manual Differential Status: None Collection Time: :22 AM Result Value Ref Range Total Counted Assessment and Plan: Hemodialysis today for uremia and volume overload. Blood sugar control per Dr Rashid. PT/PMNR eval. Alerted heart coordinator pt is here. Renal dose pepcid. Check iron studies. Add nephrovite. Next HD Thurs to get back on TTS schedule. * Iron, TIBC, % sat. (without ferritin) (10/10/2017 9:34 AM CDT) Iron 50 40 - 160 ug/dL [facility] TIBC 159 (L) 250 - 450 ug/dL [facility] Iron % Saturation 31 20 - 55 % [facility] Specimen Blood - Arm, Left Performing Organization Address [facility] Phone Number [address] [address] [phone] [place] [address] * Ferritin (10/10/2017 9:34 AM CDT) Ferritin 2,367 (H) 5 - 275 ng/mL [facility] Specimen Blood - Arm, Left Performing Organization Address [facility] [place] [address] [phone] [place] [address] * Lactic acid, arterial, whole blood (10/08/2017 5:07 AM CDT) Only the most recent of 8 results within the time period is included. Lactate, Art 1.7 0.5 - 2.2 mmol/L [facility] Specimen Blood, Arterial Narrative Performed At Effective 11/26/2015: Units/Reference Range Change [facility] New: 0.5-2.2 mmol/LPrevious: 5-20 mg/dL [facility] Performing Organization Address [facility] Phone Number [address] [address] [phone] [place] [address] * Comprehensive metabolic panel (10/06/2017 10:13 AM CDT) Protein, Total 6.9 6.0 - 8.3 gm/dL [facility] Albumin 3.5 3.5 - 5.0 g/dL [facility] Alkaline Phosphatase 109 40 - 150 U/L [facility] Total Bilirubin 0.4 0.2 - 1.2 mg/dL [facility] Sodium 138 136 - 145 meq/L [facility] Potassium 4.7 3.5 - 5.1 meq/L [facility] Chloride 102 98 - 107 meq/L [facility] CO2 18 (L) 22 - 29 meq/L [facility] BUN 78 (H) 7 - 21 mg/dL [facility] Creatinine 4.98 (H) 0.57 - 1.25 mg/dL [facility] Glucose 234 (H) 70 - 105 mg/dL [facility] Calcium 8.7 8.4 - 10.2 mg/dL [facility] AST 26 5 - 34 U/L [facility] ALT 13 6 - 55 U/L [facility] EGFR 9Comment: ESTIMATED GFR IS NOT mL/min/1.73 sq m [facility] ACCURATE CREATININE [facility] CLEARANCE IN PREDICTING GLOMERULAR FILTRATION RATE. ESTIMATED GFR IS NOT APPLICABLE FOR DIALYSIS PATIENTS. Specimen Blood Performing Organization Address City/State/Zipcode Phone Number [facility] [address] [place] [address] [facility] * Blood gas, arterial (10/06/2017 10:11 AM CDT) Only the most recent of 10 results within the time period is included. pH, Arterial 7.44 7.35 - 7.45 [facility] pCO2, Arterial 32 (L) 35 - 45 mmHg [facility] pO2, Arterial 115 (H) 80 - 90 mmHg [facility] O2 Sat, Arterial 98.4 (H) 96.0 - 97.0 % [facility] HCO3, Arterial 21 21 - 29 mmol/L [facility] Base Excess, Arterial -2.3 (L) -2.0 - 3.0 mmol/L [facility] Patient Temperature 37.0 C [facility] FIO2 24.0 % [facility] Specimen Blood, Arterial Performing Organization Address City/[facility]/Zipcode Phone Number [facility] [address] [place] [address] [facility] * XR abdomen / KUB 1 view (10/05/2017 4:28 PM CDT) Only the most recent of 3 results within the time period is included. Narrative Performed At FINAL REPORT [facility] Abdomen one view INDICATION: [employer] COMPARISON: 10/05/2017 at 1341 hours IMPRESSION: The feeding tube tip now at terminates at the level of the distal stomach. Suggest further advancement. The remainder of the study is grossly unchanged since 1341 hours. Please see that report for additional details. Signed: Tamara Castro MD Report Verified Date/Time:10/05/2017 16:28:34 Reading Location: [address] Consult Reading Room Procedure Note Interface, External Ris In - 10/05/2017 4:30 PM CDT FINAL REPORT Abdomen one view INDICATION: [employer] COMPARISON: 10/05/2017 at 1341 hours IMPRESSION: The feeding tube tip now at terminates at the level of the distal stomach. Suggest further advancement. The remainder of the study is grossly unchanged since 1341 hours. Please see that report for additional details. Signed: Tamara Castro MD Report Verified Date/Time: 10/05/2017 16:28:34 Reading Location: [facility] Consult Reading Room Performing Organization Address City/State/Zipcode Phone Number [facility] * TSH/Free T4 If Indicated (10/05/2017 12:04 PM CDT) TSH 0.96 0.35 - 4.94 uIU/mL [facility] Specimen Blood Performing Organization Address City/[facility]/Zipcode Phone Number [facility] [address] [place] [address] [facility] * Ammonia (10/05/2017 12:04 PM CDT) Ammonia 15 (L) 18 - 72 mol/L [facility] Specimen Blood Performing Organization Address City/State/Zipcode Phone Number [facility] [address] [place] [address] [facility] * ECG 12 lead (10/05/2017 10:39 AM CDT) Only the most recent of 2 results within the time period is included. Narrative Performed At Ventricular Rate 132 BPM GE [facility] Atrial Rate 132 BPM P-R Interval 126 ms QRS Duration 96 ms Q-T Interval 368 ms QTC Calculation(Bazett) 545 ms P [place] 34 degrees R [place] 141 degrees T [place] 53 degrees Poor data quality, interpretation may be adversely affected Sinus tachycardia Right axis deviation Incomplete right bundle branch block Abnormal ECG When compared with ECG of 05-OCT-2017 10:38, Poor data quality in current ECG precludes serial comparison Confirmed by Jimenez NUGENT MICHAEL ([id number]) on 10/06/2017 7:20:00 AM Procedure Note Interface, External Ris In - 10/06/2017 7:20 AM CDT Ventricular Rate 132 BPM Atrial Rate 132 BPM P-R Interval 126 ms QRS Duration 96 ms Q-T Interval 368 ms QTC Calculation(Bazett) 545 ms P [place] 34 degrees R [place] 141 degrees T [place] 53 degrees Poor data quality, interpretation may be adversely affected Sinus tachycardia Right axis deviation Incomplete right bundle branch block Abnormal ECG When compared with ECG of 05-OCT-2017 10:38, Poor data quality in current ECG precludes serial comparison Confirmed by Jimenez NUGENT MICHAEL ([id number]) on 10/06/2017 7:20:00 AM Performing Organization Address City/State/Zipcode Phone Number [facility] * HEMODIALYSIS INPATIENT (10/04/2017 7:53 PM CDT) Narrative Performed At Leander Leonard RN 10/04/20177:53 PM HD x 4 hours via LUE AVG, 3 liters net fluid removed. Patient tolerated treatment well. Lab Results Component Value Date WBC 13.0 (H) 10/04/2017 HGB 8.6 (L) 10/04/2017 HCT 28.0 (L) 10/04/2017 MCV 98.2 (H) 10/04/2017 PLT 257 10/04/2017 Lab Results Component Value Date HEPBSAG Nonreactive 10/01/2017 ] Lab Results Component Value Date GLUCOSE 155 (H) 10/04/2017 CALCIUM 8.5 10/04/2017 NA 140 10/04/2017 K 3.7 10/04/2017 CO2 22 10/04/2017 CL 103 10/04/2017 BUN 49 (H) 10/04/2017 CREATININE 4.94 (H) 10/04/2017 * TRANSFUSION SERVICE REPORT - SCAN (10/04/2017 5:51 PM CDT) Only the most recent of 2 results within the time period is included. Narrative Performed At * 1,3 beta D glucan assay (10/04/2017 1:55 PM CDT) Only the most recent of 2 results within the time period is included. Scan Result [facility] Specimen Blood - RBC bag Narrative Performed At Performing Organization Address City/[facility] Phone Number [facility] [address] [place], [place] * Vancomycin level, random (10/04/2017 5:29 AM CDT) Only the most recent of 2 results within the time period is included. Vancomycin Rm 18.8 ug/mL [facility] Specimen Blood - Line, Arterial Narrative Performed At Reference Range: No Normals [facility] Performing Organization Address City/[facility] Phone Number [place] [phone] [place] [address] [facility] * Prepare Leuko-Red RBC (10/03/2017 11:54 PM CDT) CROSSMATCH COMPATIBLE SAFETRACE TX Unit ABO A Pos SAFETRACE TX UNIT NUMBER [id number] SAFETRACE TX Status TRANSFUSED SAFETRACE TX Blood Bank Product RED BLOOD CELLS SAFETRACE TX PRODUCT CODE [id number] SAFET[place]ACE [place] Specimen Other Performing Organization Address City/[facility] Phone Number [place] * Hemoglobin and hematocrit (10/03/2017 2:41 PM CDT) Only the most recent of 4 results within the time period is included. Hemoglobin 9.3 (L) 11.2 - 15.7 GM/DL [facility] Hematocrit 28.8 (L) 34.1 - 44.9 % [facility] Specimen Blood - Line, Arterial Performing Organization Address City/State/Zipcode Phone Number [facility] [address] [place] [address] MEDICAL CENTER * CT brain without IV contrast (10/03/2017 12:03 PM CDT) Narrative Performed At FINAL REPORT [facility] CT Head without contrast CLINICAL HISTORY: Encephalopathy TECHNIQUE: Contiguous axial images through the head without contrast. This exam was performed according to the departmental dose optimization program which includes automated exposure control, adjustment of the mA and/or kV according to the patient size, and/or use of an iterative reconstruction technique. COMPARISON: 01/14/2017 FINDINGS: There is no CT evidence of acute infarct or intracranial hemorrhage. Chronic infarcts of the bilateral caudate heads are again seen. Small chronic bilateral cerebellar infarcts are again seen. There is periventricular and subcortical white matter hypodensity which is nonspecific but compatible with chronic microvascular ischemic change. There are atherosclerotic calcifications of the intracranial circulation. There is generalized parenchymal volume loss without hydrocephalus, midline shift, or apparent mass effect. There are no extra-axial fluid collections. The skull is intact. There are air-fluid levels in the paranasal sinuses with support tubing in place. IMPRESSION: No CT evidence of acute infarct, hemorrhage, or hydrocephalus. 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 Signed: Kristine Shepherd MD Report Verified Date/Time:10/03/2017 12:17:19 Reading Location: [facility] B1 [id number] Neuro Reading Room Procedure Note Interface, External Ris In - 10/03/2017 12:19 PM CDT FINAL REPORT CT Head without contrast CLINICAL HISTORY: Encephalopathy TECHNIQUE: Contiguous axial images through the head without contrast. This exam was performed according to the departmental dose optimization program which includes automated exposure control, adjustment of the mA and/or kV according to the patient size, and/or use of an iterative reconstruction technique. COMPARISON: 01/14/2017 FINDINGS: There is no CT evidence of acute infarct or intracranial hemorrhage. Chronic infarcts of the bilateral caudate heads are again seen. Small chronic bilateral cerebellar infarcts are again seen. There is periventricular and subcortical white matter hypodensity which is nonspecific but compatible with chronic microvascular ischemic change. There are atherosclerotic calcifications of the intracranial circulation. There is generalized parenchymal volume loss without hydrocephalus, midline shift, or apparent mass effect. There are no extra-axial fluid collections. The skull is intact. There are air-fluid levels in the paranasal sinuses with support tubing in place. IMPRESSION: No CT evidence of acute infarct, hemorrhage, or hydrocephalus. 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 Signed: Kristine Shepherd MD Report Verified Date/Time: 10/03/2017 12:17:19 Reading Location: [facility] Neuro Reading Room Performing Organization Address City/State/Zipcode Phone Number [facility] * Hepatic function panel (10/03/2017 3:28 AM CDT) Only the most recent of 4 results within the time period is included. Protein, Total 6.2 6.0 - 8.3 gm/dL [facility] Albumin 3.2 (L) 3.5 - 5.0 g/dL [facility] Total Bilirubin 0.6 0.2 - 1.2 mg/dL [facility] Bilirubin, Direct 0.3 0.1 - 0.5 mg/dL [facility] Alkaline Phosphatase 113 40 - 150 U/L [facility] AST 29 5 - 34 U/L [facility] ALT 20 6 - 55 U/L [facility] Specimen Blood Performing Organization Address City/[facility]/Zipcode Phone Number [facility] [address] [place] [address] MED[facility]ENTER * Blood culture (10/02/2017 8:17 PM CDT) Only the most recent of 5 results within the time period is included. Result No growth in 5 days [facility] Specimen Blood - Line, Arterial Performing Organization Address [facility] Phone Number [facility] [address] [place] [address] [phone] * Transfuse Leuko-Red RBC (10/02/2017 11:06 AM CDT) Only the most recent of 2 results within the time period is included. * Type and screen, automated (10/02/2017 9:04 AM CDT) ABO/RH AUTOMATED (BEAKER) A POSITIVE [facility] Ab Scrn NEGATIVE [facility] Specimen Blood Performing Organization Address [facility] Phone Number [address] * Calcium, Ionized (10/02/2017 4:35 AM CDT) Only the most recent of 3 results within the time period is included. Calcium, Ion 1.02 (L) 1.12 - 1.27 mmol/L [facility] pH, Blood 7.53 [facility] Specimen Blood - Line, Arterial Performing Organization Address [facility] [place] [address] [phone] [address] * ECHOCARDIOGRAM REPORT - SCAN (10/01/2017 6:20 PM GEOLOGICAL SPECIALIST) Narrative Performed At * CMV PCR, quantitative (10/01/2017 2:33 PM GEOLOGICAL SPECIALIST) CMV DNA Viral Load Negative or below the linear [facility] range of the assay (<375 [facility] copies/mL) Specimen Blood Narrative Performed At Cytomegalovirus (CMV) infection can cause significant disease in [facility] immunosuppressed patients. However, it is common for CMV to manifest as a [facility] limited infection which is of no clinical significance in immunosuppressed patients or in healthy individuals. Viral load measurements are helpful to identify clinical CMV infection and to guide the pre-emptive management of antiviral therapy.For treatment of CMV infection due to reactivation in transplant recipients, a threshold between 4,000 and 5,000 copies/mL is suggested.For treatment of primary CMV infection, a lower threshold can be used. CMV [...] and its performance characteristics determined by the [facility] Pathology Department, Section of Molecular Pathology. It has not been cleared or approved by the U.S. Food and Drug Administration (FDA), since FDA approval is not required for clinical use of the test. Validation was done as required by The Clinical Laboratory Improvement Amendments of 1988. Performing Organization Address City/State/Zipcode Phone Number [facility] [address] [place] [address] [facility] * 2D Echo W/Doppler(CW/PW/Color) (10/01/2017 1:18 PM GEOLOGICAL SPECIALIST) Ejection Fraction [facility] ECHO [facility]ART[facility] Narrative Performed At Transthoracic Echocardiography Report (TTE) [facility] ECHO HEARTLAB Demographics [facility] Patient Name FUNMI MONTERROSO Date of Study 10/01/2017 MICHELLE [id number] GenderFemale Visit Number [id number] RaceUnknown [id number] Number [id number] Number Date of Birth1955 Referring Physician Betty Tran MD 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 Clinical History HGB 10.2 HCT 32.4 % HLD HTN ANEMIA CAD CVA ESRD LV ANEURYSM (PARACHUTE DEVICE 2007) Height: 62 inches Weight: 45.81 kg (101 lbs) BSA: 1.43 m^2 BMI: 18.47 kg/m^2 HR: 127 bpm BP: 145/86 mmHg Summary The right ventricular chamber size and systolic function are within normal limits. LV Biplane Elias's EF 58.9%. LV cavity obliteration in systole. No pericardial effusion is visualized. Previous Study No prior exam available for comparison. Signature Findings Technical Quality: Technically difficult exam. Rhythm/BPRapid rhythm during the exam. HR 115 bpm Left Ventricle Borderline concentric LV hypertrophy. All of the LV segments are hyperkinetic . Global LV systolic function hyperdynamic . Septal motion is abnormal, likely related to prior cardiac surgery . Biplane Elias's EF 58.9%. Cavity obliteration in systole. 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 Right VentricleThe right ventricular chamber size and systolic function are within normal limits. Right Atrium Bi-atrial appearance is consistent with cardiac transplantation. Aortic Valve Normal AoV structure and function. Mitral Valve Normal MV structure. Trace mitral regurgitation. Tricuspid ValveNormal TV structure and function. Unable to estimate peak systolic PA pressure; inadequate TR velocity signal. Pulmonic Valve Normal PV structure and function. AortaAortic root size (SInus of Valsalva diameter) is normal . Proximal ascending aorta size is normal . PericardiumNo pericardial effusion is visualized. IVC/SVC/PA/PV/PleuralThe estimated RA pressure by IVC dynamics 5-10mmHg . Chambers/Structures Left Atrium LA Dimension: 3.13 cm Left Ventricle LVIDd: 3.53 cm LV Septum Diastolic: 1.16 cm LV PW Diastolic: 0.97 cm Doppler/Quantitative Measurements LVOT Peak Velocity: 1.16 m/s Peak Gradient: 5.4 mmHg Mean Velocity: 0.67 m/s Mean Gradient: 2.44 mmHg LVOT VTI: 15 cm Procedure Note Interface, External Ris In - 10/01/2017 5:56 PM GEOLOGICAL SPECIALIST Transthoracic Echocardiography Report (TTE) Demographics Patient Name FNUMI MONTERROSO Date of Study 10/01/2017 MICHELLE Gender Female Visit Number [id number] Race Unknown Room Number C825 Number Date of 1955 Referring Physician Betty Tran MD 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 Clinical History HGB 10.2 HCT 32.4 % HLD HTN ANEMIA CAD CVA ESRD LV ANEURYSM (PARACHUTE DEVICE 2007) Height: 62 inches Weight: 45.81 kg (101 lbs) BSA: 1.43 m^2 BMI: 18.47 kg/m^2 HR: 127 bpm BP: 145/86 mmHg Summary The right ventricular chamber size and systolic function are within normal limits. LV Biplane Elias's EF 58.9%. LV cavity obliteration in systole. No pericardial effusion is visualized. Previous Study No prior exam available for comparison. Signature Findings Technical Quality: Technically difficult exam. Rhythm/BP Rapid rhythm during the exam. HR 115 bpm Left Ventricle Borderline concentric LV hypertrophy. All of the LV segments are hyperkinetic . Global LV systolic function hyperdynamic . Septal motion is abnormal, likely related to prior cardiac surgery . Biplane Elias's EF 58.9%. Cavity obliteration in systole. 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 Right Ventricle The right ventricular chamber size and systolic function are within normal limits. Right Atrium Bi-atrial appearance is consistent with cardiac transplantation. Aortic Valve Normal AoV structure and function. Mitral Valve Normal MV structure. Trace mitral regurgitation. Tricuspid Valve Normal TV structure and function. Unable to estimate peak systolic PA pressure; inadequate TR velocity signal. Pulmonic Valve Normal PV structure and function. Aorta Aortic root size (SInus of Valsalva diameter) is normal . Proximal ascending aorta size is normal . Pericardium No pericardial effusion is visualized. IVC/SVC/PA/PV/Pleural The estimated RA pressure by IVC dynamics 5-10mmHg . Chambers/Structures Left Atrium LA Dimension: 3.13 cm Left Ventricle LVIDd: 3.53 cm LV Septum Diastolic: 1.16 cm LV PW Diastolic: 0.97 cm Doppler/Quantitative Measurements LVOT Peak Velocity: 1.16 m/s Peak Gradient: 5.4 mmHg Mean Velocity: 0.67 m/s Mean Gradient: 2.44 mmHg LVOT VTI: 15 cm Performing Organization Address City/State/Zipcode Phone Number [facility] * CT abdomen/pelvis with IV contrast (10/01/2017 11:05 AM GEOLOGICAL SPECIALIST) Narrative Performed At FINAL REPORT [employer] CT chest, abdomen, and pelvis with contrast. INDICATION: obstruction (N/V), fevers, hemoptysis COMPARISON: 08/15/2017, 12/19/2015, 06/05/2013, and 05/07/2012 TECHNIQUE: Multiple contiguous transaxial images of the chest, abdomen, and pelvis were obtained after the administration of intravenous contrast. This exam was performed according to our departmental dose optimization program which includes automated exposure control, adjustment of the mA and/or kV according to patient size and/or use of iterative reconstructive technique. FINDINGS: There is no pneumothorax, pulmonary edema or pleural effusion. There is bibasilar atelectasis with more confluent airspace opacities in the left lower lobe medially measuring 2.4 cm, suggestive of focal pneumonitis, possibly from aspiration. Mild perihilar groundglass opacities are suggestive of mild pulmonary edema or atypical pneumonitis. In the left lower lobe, there is a 3 mm subpleural nodule which appears similar to before. The major airways are clear. Endotracheal tube in the thoracic inlet. The visualized portion of the thyroid gland appear unremarkable. There is no hilar, mediastinal or axillary lymphadenopathy. There is no pericardial effusion. Heart size appears prominent. Atherosclerotic vascular calcifications are seen with tortuous appearance of the aorta. The liver, spleen, pancreas, and adrenal glands are unremarkable. The gallbladder is absent. There is no biliary dilatation. The stomach and duodenum are unremarkable. Both kidneys are unremarkable. The urinary bladder demonstrates a Hercules catheter in position with nonspecific air. The uterus is absent. No pelvic masses are seen. There is no free fluid in the pelvis. There is wall thickening of the ascending colon, hepatic flexure and transverse colon, suggestive of nonspecific colitis of infectious, inflammatory or vascular etiology. The appendix is not clearly visualized. There is no bowel obstruction or perforation. There is no fluid collection or lymphadenopathy. Extensive vascular calcifications are seen. The osseous structures demonstrate degenerative changes. There is a chronic fracture of the right greater trochanter. Calcified bilateral gluteal subcutaneous lesions are suggestive of prior injections. Bones are osteopenic. There are age indeterminate compression fractures of L4, L3, and T6, most advanced at L4. IMPRESSION: 1. CT findings suggestive of right-sided colitis as above. 2. Left basilar opacities suggestive of pneumonitis. Mild perihilar opacities are suggestive of mild pulmonary edema or atypical pneumonitis. 3. Osteopenia and age indeterminate compression fractures of the thoracic and lumbar spine as above. Signed: Panda Jernigan MD Report Verified Date/Time:10/01/2017 11:26:00 Reading Location: [address] Ortho Consult Reading Room Procedure Note Interface, External Ris In - 10/01/2017 11:28 AM GEOLOGICAL SPECIALIST FINAL REPORT CT chest, abdomen, and pelvis with contrast. INDICATION: obstruction (N/V), fevers, hemoptysis COMPARISON: 08/15/2017, 12/19/2015, 06/05/2013, and 05/07/2012 TECHNIQUE: Multiple contiguous transaxial images of the chest, abdomen, and pelvis were obtained after the administration of intravenous contrast. This exam was performed according to our departmental dose optimization program which includes automated exposure control, adjustment of the mA and/or kV according to patient size and/or use of iterative reconstructive technique. FINDINGS: There is no pneumothorax, pulmonary edema or pleural effusion. There is bibasilar atelectasis with more confluent airspace opacities in the left lower lobe medially measuring 2.4 cm, suggestive of focal pneumonitis, possibly from aspiration. Mild perihilar groundglass opacities are suggestive of mild pulmonary edema or atypical pneumonitis. In the left lower lobe, there is a 3 mm subpleural nodule which appears similar to before. The major airways are clear. Endotracheal tube in the thoracic inlet. The visualized portion of the thyroid gland appear unremarkable. There is no hilar, mediastinal or axillary lymphadenopathy. There is no pericardial effusion. Heart size appears prominent. Atherosclerotic vascular calcifications are seen with tortuous appearance of the aorta. The liver, spleen, pancreas, and adrenal glands are unremarkable. The gallbladder is absent. There is no biliary dilatation. The stomach and duodenum are unremarkable. Both kidneys are unremarkable. The urinary bladder demonstrates a Hercules catheter in position with nonspecific air. The uterus is absent. No pelvic masses are seen. There is no free fluid in the pelvis. There is wall thickening of the ascending colon, hepatic flexure and transverse colon, suggestive of nonspecific colitis of infectious, inflammatory or vascular etiology. The appendix is not clearly visualized. There is no bowel obstruction or perforation. There is no fluid collection or lymphadenopathy. Extensive vascular calcifications are seen. The osseous structures demonstrate degenerative changes. There is a chronic fracture of the right greater trochanter. Calcified bilateral gluteal subcutaneous lesions are suggestive of prior injections. Bones are osteopenic. There are age indeterminate compression fractures of L4, L3, and T6, most advanced at L4. IMPRESSION: 1. CT findings suggestive of right-sided colitis as above. 2. Left basilar opacities suggestive of pneumonitis. Mild perihilar opacities are suggestive of mild pulmonary edema or atypical pneumonitis. 3. Osteopenia and age indeterminate compression fractures of the thoracic and lumbar spine as above. Signed: Panda Jernigan MD Report Verified Date/Time: 10/01/2017 11:26:00 Reading Location: [facility] B1 C013X Ortho Consult Reading Room Performing Organization Address City/State/Zipcode Phone Number RIS * CT chest with IV contrast (10/01/2017 11:05 AM GEOLOGICAL SPECIALIST) Narrative Performed At FINAL REPORT [facility] CT chest, abdomen, and pelvis with contrast. INDICATION: obstruction (N/V), fevers, hemoptysis COMPARISON: 08/15/2017, 12/19/2015, 06/05/2013, and 05/07/2012 TECHNIQUE: Multiple contiguous transaxial images of the chest, abdomen, and pelvis were obtained after the administration of intravenous contrast. This exam was performed according to our departmental dose optimization program which includes automated exposure control, adjustment of the mA and/or kV according to patient size and/or use of iterative reconstructive technique. FINDINGS: There is no pneumothorax, pulmonary edema or pleural effusion. There is bibasilar atelectasis with more confluent airspace opacities in the left lower lobe medially measuring 2.4 cm, suggestive of focal pneumonitis, possibly from aspiration. Mild perihilar groundglass opacities are suggestive of mild pulmonary edema or atypical pneumonitis. In the left lower lobe, there is a 3 mm subpleural nodule which appears similar to before. The major airways are clear. Endotracheal tube in the thoracic inlet. The visualized portion of the thyroid gland appear unremarkable. There is no hilar, mediastinal or axillary lymphadenopathy. There is no pericardial effusion. Heart size appears prominent. Atherosclerotic vascular calcifications are seen with tortuous appearance of the aorta. The liver, spleen, pancreas, and adrenal glands are unremarkable. The gallbladder is absent. There is no biliary dilatation. The stomach and duodenum are unremarkable. Both kidneys are unremarkable. The urinary bladder demonstrates a Hercules catheter in position with nonspecific air. The uterus is absent. No pelvic masses are seen. There is no free fluid in the pelvis. There is wall thickening of the ascending colon, hepatic flexure and transverse colon, suggestive of nonspecific colitis of infectious, inflammatory or vascular etiology. The appendix is not clearly visualized. There is no bowel obstruction or perforation. There is no fluid collection or lymphadenopathy. Extensive vascular calcifications are seen. The osseous structures demonstrate degenerative changes. There is a chronic fracture of the right greater trochanter. Calcified bilateral gluteal subcutaneous lesions are suggestive of prior injections. Bones are osteopenic. There are age indeterminate compression fractures of L4, L3, and T6, most advanced at L4. IMPRESSION: 1. CT findings suggestive of right-sided colitis as above. 2. Left basilar opacities suggestive of pneumonitis. Mild perihilar opacities are suggestive of mild pulmonary edema or atypical pneumonitis. 3. Osteopenia and age indeterminate compression fractures of the thoracic and lumbar spine as above. Signed: Panda Jernigan MD Report Verified Date/Time:10/01/2017 11:26:00 Reading Location: [facility] B1 [id number] Ortho Consult Reading Room Procedure Note Interface, External Ris In - 10/01/2017 11:28 AM GEOLOGICAL SPECIALIST FINAL REPORT CT chest, abdomen, and pelvis with contrast. INDICATION: obstruction (N/V), fevers, hemoptysis COMPARISON: 08/15/2017, 12/19/2015, 06/05/2013, and 05/07/2012 TECHNIQUE: Multiple contiguous transaxial images of the chest, abdomen, and pelvis were obtained after the administration of intravenous contrast. This exam was performed according to our departmental dose optimization program which includes automated exposure control, adjustment of the mA and/or kV according to patient size and/or use of iterative reconstructive technique. FINDINGS: There is no pneumothorax, pulmonary edema or pleural effusion. There is bibasilar atelectasis with more confluent airspace opacities in the left lower lobe medially measuring 2.4 cm, suggestive of focal pneumonitis, possibly from aspiration. Mild perihilar groundglass opacities are suggestive of mild pulmonary edema or atypical pneumonitis. In the left lower lobe, there is a 3 mm subpleural nodule which appears similar to before. The major airways are clear. Endotracheal tube in the thoracic inlet. The visualized portion of the thyroid gland appear unremarkable. There is no hilar, mediastinal or axillary lymphadenopathy. There is no pericardial effusion. Heart size appears prominent. Atherosclerotic vascular calcifications are seen with tortuous appearance of the aorta. The liver, spleen, pancreas, and adrenal glands are unremarkable. The gallbladder is absent. There is no biliary dilatation. The stomach and duodenum are unremarkable. Both kidneys are unremarkable. The urinary bladder demonstrates a Hercules catheter in position with nonspecific air. The uterus is absent. No pelvic masses are seen. There is no free fluid in the pelvis. There is wall thickening of the ascending colon, hepatic flexure and transverse colon, suggestive of nonspecific colitis of infectious, inflammatory or vascular etiology. The appendix is not clearly visualized. There is no bowel obstruction or perforation. There is no fluid collection or lymphadenopathy. Extensive vascular calcifications are seen. The osseous structures demonstrate degenerative changes. There is a chronic fracture of the right greater trochanter. Calcified bilateral gluteal subcutaneous lesions are suggestive of prior injections. Bones are osteopenic. There are age indeterminate compression fractures of L4, L3, and T6, most advanced at L4. IMPRESSION: 1. CT findings suggestive of right-sided colitis as above. 2. Left basilar opacities suggestive of pneumonitis. Mild perihilar opacities are suggestive of mild pulmonary edema or atypical pneumonitis. 3. Osteopenia and age indeterminate compression fractures of the thoracic and lumbar spine as above. Signed: Panda Jernigan MD Report Verified Date/Time: 10/01/2017 11:26:00 Reading Location: [facility] [id number] Ortho Consult Reading Room Performing Organization Address [facility] Phone Number GE RIS * Bacterial culture + gram stain (10/01/2017 9:40 AM GEOLOGICAL SPECIALIST) Result [facility] Result ASPERGILLUS FUMIGATUS (A) [facility] Gram Stain Result 4+ WBCs [facility] Gram Stain Result <1+ gram positive cocci in [facility] pairs and [facility] Specimen Bronch Washing - Lung Narrative Performed At 1+ Normal respiratory jasbir present [facility] Performing Organization Address [facility] Phone Number [place] [phone] [place] [address] [facility] * Fungus culture + smear (10/01/2017 9:40 AM GEOLOGICAL SPECIALIST) Result [facility] Result VERNON DUBLINIENSIS (A) [facility] Result PEPTOCOCCUS NIGER (A) [facility] Result ASPERGILLUS TERREUS (A) [facility] Fungus Smear No fungi seen [facility] Specimen Bronch Washing - Lung Performing Organization Address [facility] [place] [address] [phone] [place] [address] * aPTT (10/01/2017 8:20 AM GEOLOGICAL SPECIALIST) PTT 31.1 22.5 - 36.0 seconds [facility] Specimen Blood Performing Organization Address City/[facility] [place] [address] [phone] [place] [address] * Fibrinogen (10/01/2017 8:20 AM GEOLOGICAL SPECIALIST) Fibrinogen 531 (H) 225 - 434 mg/dl [facility] Specimen Blood Performing Organization Address [facility] [place] [address] [phone] * Platelet count (10/01/2017 8:20 AM GEOLOGICAL SPECIALIST) Platelets 131 (L) 150 - 450 K/CU MM [facility] Specimen Blood Performing Organization Address City/[facility] [place] [address] [phone] [place] [address] * RESPIRATORY PANEL [facility] (10/01/2017 7:05 AM GEOLOGICAL SPECIALIST) Human Metapneumovirus Not detected Not detected, [facility] Rhinovirus Not detected Not detected, [facility] Inconclusive [facility] Influenza A Not detected Not detected, [facility] Inconclusive [facility] Influenza A subtype H1 Not detected Not detected, [facility] Inconclusive [facility] Influenza A Subtype H3 Not detected Not detected, [facility] Inconclusive [facility] Influenza A Subtype Not detected Not detected, [facility] H1-2009 Inconclusive [facility] Influenza B Not detected Not detected, [facility] Respiratory Syncytial Detected (A)Comment: Assay is Not detected, [facility] Virus not able differentiate between [facility] RSV A and RSV B Parainfluenza Virus 1 Not detected Not detected, [facility] Parainfluenza Virus 2 Not detected Not detected, [facility] Parainfluenza virus 3 Not detected Not detected, [facility] Parainfluenza Virus 4 Not detected Not detected, [facility] Adenovirus Not detected Not detected, [facility] Coronavirus 229E Not detected Not detected, [facility] Coronavirus HKU1 Not detected Not detected, [facility] Coronavirus NL63 Not detected Not detected, [facility] Coronavirus OC43 Not detected Not detected, [facility] Bordetella Pertussis Not detected Not detected, [facility] Chlamydophila Pneumoniae Not detected Not detected, [facility] Mycoplasma Pneumoniae Not detected Not detected, [facility] Specimen Nasopharyngeal - Nasal, Right Performing Organization Address City/State/Zipcode Phone Number [facility] [address] [place] [address] [facility] * HEMODIALYSIS INPATIENT (10/01/2017 4:28 AM GEOLOGICAL SPECIALIST) Narrative Performed At Kayla Titus RN 10/01/20174:28 AM Patient is sleepy but easily arousable.oriented X 2. Here to be dialyzed for 4 hours with UF goal of 2L. Dr Gillespie at the bedside. Orders for HD made and carried out. Explained procedure to pt. Needs reinforcement. Sinus tach at 120's-130's. Cardene drip was put off. Pt complaining of N/V. Labs are drawn.The following most updated labs are as follows: Lab Results Component Value Date HEPBSAG Nonreactive 10/01/2017 Lab Results Component Value Date GLUCOSE 196 (H) 10/01/2017 CALCIUM 9.0 10/01/2017 NA 134 (L) 10/01/2017 K 6.7 (HH) 10/01/2017 CO2 17 (L) 10/01/2017 CL 103 10/01/2017 BUN 102 (H) 10/01/2017 CREATININE 7.14 (H) 10/01/2017 Lab Results Component Value Date WBC 10.5 09/30/2017 HGB 10.9 (L) 09/30/2017 HCT 32.0 (L) 09/30/2017 MCV 100.3 (H) 09/30/2017 PLT 158 09/30/2017 Patient dialyzed for 4 hours with Net UF=2 L using the Left AV graft access. Still on ST at 120-130's. Report given to Neetu MANNING. Patient was able to tolerate the treatment. * Hepatitis B surface antigen (10/01/2017 12:35 AM GEOLOGICAL SPECIALIST) hepatitis B Surface Ag NON-REACTIVE Nonreactive [facility] Specimen Blood Performing Organization Address City/State/Zipcode Phone Number [facility] [address] [place] [address] [place] [place] * Urinalysis w/ Microscopic (09/30/2017 11:41 PM GEOLOGICAL SPECIALIST) Color, UA Yellow [facility] Clarity, UA Clear [facility] Specific [place], UA 1.012 1.001 - 1.035 [facility] pH, UA 7.5 5.0 - 8.0 [facility] Protein, UA 300 mg/dL (A) Negative [facility] Glucose, UA Negative Negative [facility] Ketones, UA Negative Negative [facility] Bilirubin, UA Negative Negative [facility] Blood, UA Moderate (A) Negative [facility] Nitrite, UA Negative Negative [facility] Leukocytes, UA Negative Negative [facility] Urobilinogen, UA 0.2 0.2 - 1.0 mg/dL [facility] RBC, UA 79 /HPF [facility] WBC, UA 2 /HPF [facility] Bacteria, UA Rare [facility] Mucus Rare [facility] Squam Epithel, UA <1 /HPF [facility] Specimen Source Urine, Hercules [facility] Specimen Urine - Urine, Hercules Performing Organization Address [facility] Phone Number [address] * Urine culture (09/30/2017 11:41 PM GEOLOGICAL SPECIALIST) Result No growth [facility] Specimen Urine - Urine, Hercules Performing Organization Address [facility] Phone Number [address] * Potassium-Stat Lab (09/30/2017 11:35 PM GEOLOGICAL SPECIALIST) Potassium 6.5 (HH) 3.6 - 5.5 meq/L [facility] Specimen Blood, Arterial Performing Organization Address [facility] Phone Number [address] * Sodium Na-Stat Lab (09/30/2017 11:35 PM GEOLOGICAL SPECIALIST) Sodium 135 135 - 148 meq/L [facility] Specimen Blood, Arterial Performing Organization Address [facility] Phone Number [address] * Glucose-Stat Lab (09/30/2017 11:35 PM GEOLOGICAL SPECIALIST) Glucose 167 (H) 70 - 110 mg/dL [facility] Specimen Blood, Arterial Performing Organization Address [facility] Phone Number [address] * HGB/HCT (H&H)-Stat Lab (09/30/2017 11:35 PM GEOLOGICAL SPECIALIST) Hemoglobin 10.9 (L) 12.0 - 15.0 g/dL [facility] Hematocrit 32.0 (L) 36.0 - 45.0 % [facility] Specimen Blood, Arterial Performing Organization Address City/[facility] Phone Number [facility] [address] [place] [phone] [facility] * Blood gas, venous (09/30/2017 11:33 PM GEOLOGICAL SPECIALIST) pH, Aren 7.34 7.32 - 7.42 [facility] pCO2, Aren 41 41 - 51 mmHg [facility] pO2, Aren 52 (H) 25 - 40 mmHg [facility] O2 Sat, Aren 85.9 (H) 40.0 - 70.0 % [facility] HCO3, Aren 22 21 - 29 mmol/L [facility] Base Excess, Aren -3.9 (L) -2.0 - 3.0 mmol/L [facility] Patient Temperature 36.7 C [facility] FIO2 40.0 % [facility] Specimen Blood Performing Organization Address [facility] Phone Number [facility] [address] [place] [phone] [place] [address] * Hepatitis A Antibody, IgG ([facility] Only) (08/24/2017 12:44 PM GEOLOGICAL SPECIALIST) Hep A IgG Reactive (A) Nonreactive [facility] Specimen Blood Performing Organization Address City/[facility] Phone Number [facility] [address] [place] [address] [facility] * Alpha fetoprotein (AFP), tumor marker (08/24/2017 12:44 PM GEOLOGICAL SPECIALIST) Alpha-Fetoprotein 2.0 <10.0 ng/mL [facility] Specimen Blood Performing Organization Address City/[facility] Phone Number [facility] [address] [place] [address] [facility] * Hepatitis C genotype (08/24/2017 12:44 PM GEOLOGICAL SPECIALIST) HCV Genotype, LiPA NOT DETECTED [facility] Comment: [facility]POR[facility] Unable to obtain genotype due to low [...] analytical performance characteristics have been determined by [facility]. It has not been cleared or approved by FDA. This assay has been validated pursuant to the CLIA regulations and is used for clinical purposes. http://education.[employer]ference[employer].com /faq/HCVGenotyping Specimen Blood Narrative Performed At Performing Lab [facility] *[facility] [address] [place] [phone] Sandor Huber MD Performing Organization Address City/[facility] Phone Number [facility], [address] [place], [place] [facility] [address] * Hepatitis C RNA, Quantitative (08/24/2017 12:44 PM GEOLOGICAL SPECIALIST) HCV PCR, Quantitative HCV RNA not detected HCV RNA not detected [facility] Specimen Blood Narrative Performed At This test uses a Real-Time Polymerase Chain Reaction (RT-PCR) methodology and [facility] was performed using [employer] Ampliprep/SERA TaqMan HCV test kit version 2.0 [facility] ([employer] Reportable range for this assay is 15 - 100,000,000 IU per mL (1.18 - 8.00 Log IU/mL). This test uses a Real-Time Polymerase Chain Reaction (RT-PCR) methodology and was performed using [employer] Ampliprep/SERA TaqMan HCV test kit version 2.0 ([employer] Reportable range for this assay is 15 - 100,000,000 IU per mL (1.18 - 8.00 Log IU/mL). Performing Organization Address City/[facility]/Zipcode Phone Number [facility] [address] [phone] [facility] * TSH (08/24/2017 12:44 PM GEOLOGICAL SPECIALIST) TSH 2.90 0.35 - 4.94 uIU/mL [facility] Specimen Blood Performing Organization Address City/State/Zipcode Phone Number [address] [address] [facility] * Gamma Glutamyl Transferase (GGT) (08/24/2017 12:44 PM GEOLOGICAL SPECIALIST) GGT 17 9 - 64 U/L [facility] Specimen Blood Performing Organization Address City/[facility]/Zipcode Phone Number [address] [address] [facility] after 08/24/2017 Insurance Payer Benefit Subscriber ID Type Phone Address Plan / Group BLUE CROSS/BLUE SHIELD - BCBS xxxxxxxxxxxx MEDICARE MGD CARE MEDICARE ADVANTAGE Advance Directives For more information, please contact: [address] [address] Date Inactivated Comments Code Status Date Activated 10/12/2017 5:39 PM Full Code 09/30/2017 11:28 PM This code status was determined by: Patient 01/22/2017 6:23 PM Full Code 01/13/2017 7:56 PM This code status was determined by: Patient 06/30/2016 7:13 PM Full Code 06/27/2016 12:49 PM This code status was determined by: Patient 12/20/2015 9:42 PM Full Code 12/20/2015 8:22 AM This code status was determined by: Patient
--- OUTSIDE RECORDS SUMMARY | 2018-08-25 15:46 | XMS REPORT ---
Author [facility] Address Unknown Phone Unavailable Care Team Providers Care [place] Name Role Phone SANDOR NIXON Unavailable Unavailable Mai MAHAN Unavailable Unavailable LORNA KU Unavailable Unavailable PAULIE TUTTLE Unavailable Unavailable BONY PAINTING Unavailable Unavailable JHONNY VERA Unavailable Unavailable KISHAN SAUCEDAAMIDIPANATALYA Unavailable Unavailable ELSIE HALLMAN Unavailable Unavailable Jose LUGO Unavailable Unavailable Mai LAU Unavailable Unavailable AMELIE BARKER Unavailable Unavailable Payers Payer Name Policy Type Policy Number Effective Date Expiration Date Problems This patient has no known problems. Allergies, Adverse Reactions, Alerts Allergy Name Allergy Type Status Severity Reaction(s) Onset Date Inactive Date Treating Clinician Comments hydromorphone DA Active MS 2018-05-26 00:00:00 Penicillins DA Active U 2018-02-27 00:00:00 codeine DA Active U 2018-02-27 00:00:00 Medications This patient has no known medications. Results Test Description Test Time Test Comments Text Results Atomic Results Result Comments TACROLIMUS 2018-08-23 12:12:00 TACROLIMUS (test code=TACRO) 7.5 ng/mL 2.0-20.0 Clinical studies have shown that patients administered0.07 mg/kg Prograf, obtain an optimal response to thedrug at the following trough levels:Trough (immediately following transplant): 15.0Trough (steady state, 2 weeks or more after transplant): 3.0 - 8.0 Detection Limit=2.0Tacrolimus assay performed by [employer] [facility]Performed At: [place] [id number] Aldana PhD Ph:[phone] BASIC METABOLIC [id number] 07:27:00* Test Item Value Reference Range Comments SODIUM (test code=NA) 138 mmol/L 136-145 POTASSIUM (test code=K) 4.1 mmol/L 3.5-5.1 CHLORIDE (test code=CL) 102.0 mmol/L 98-107 CARBON DIOXIDE (test code=CO2) 28.0 mmol/L 21-32 ANION GAP (test code=GAP) 12.1 10-20 GLUCOSE (test code=GLU) 68 mg/dL 74-106 BLOOD UREA NITROGEN (test code=BUN) 11 mg/dL 7-18 GLOMERULAR FILTRATION RATE (test code=GFR) 14 mL/min >=60 Estimated GFR by using Modified MDRD formula.Chronic kidney disease is defined as either kidney damageor GFR <60 mL/min/1.73 m2 for >3 months. CREATININE (test code=CREAT) 3.40 mg/dL 0.55-1.02 Note change in reference range due to change in reagent. BUN/CREATININE RATIO (test code=BUN/CREA) 3.3 10-20 CALCIUM (test code=CA) 7.8 mg/dL 8.5-10.1 BASIC METABOLIC [id number] 05:56:00* Test Item Value Reference Range Comments SODIUM (test code=NA) 134 mmol/L 136-145 POTASSIUM (test code=K) 4.7 mmol/L 3.5-5.1 CHLORIDE (test code=CL) 100.0 mmol/L 98-107 CARBON DIOXIDE (test code=CO2) 22.0 mmol/L 21-32 ANION GAP (test code=GAP) 16.7 10-20 GLUCOSE (test code=GLU) 65 mg/dL 74-106 BLOOD UREA NITROGEN (test code=BUN) 20 mg/dL 7-18 GLOMERULAR FILTRATION RATE (test code=GFR) 8 mL/min >=60 Estimated GFR by using Modified MDRD formula.Chronic kidney disease is defined as either kidney damageor GFR <60 mL/min/1.73 m2 for >3 months. CREATININE (test code=CREAT) 5.30 mg/dL 0.55-1.02 Note change in reference range due to change in reagent. BUN/CREATININE RATIO (test code=BUN/CREA) 3.8 10-20 CALCIUM (test code=CA) 8.1 mg/dL 8.5-10.1 BASIC METABOLIC [id number] 05:47:00* Test Item Value Reference Range Comments SODIUM (test code=NA) 134 mmol/L 136-145 POTASSIUM (test code=K) 4.7 mmol/L 3.5-5.1 CHLORIDE (test code=CL) 100.0 mmol/L 98-107 CARBON DIOXIDE (test code=CO2) mmol/L 21-32 ANION GAP (test code=GAP) 10-20 GLUCOSE (test code=GLU) mg/dL 74-106 BLOOD UREA NITROGEN (test code=BUN) mg/dL 7-18 GLOMERULAR FILTRATION RATE (test code=GFR) mL/min >=60 CREATININE (test code=CREAT) mg/dL 0.55-1.02 BUN/CREATININE RATIO (test code=BUN/CREA) 10-20 CALCIUM (test code=CA) mg/dL 8.5-10.1 CBC W/O [id number] 05:34:00* Test Item Value Reference Range Comments WHITE BLOOD CELL (test code=WBC) 4.2 K/mm3 4.5-12.5 RED BLOOD CELL (test code=RBC) 3.75 mill/mm3 3.7-5.2 HEMOGLOBIN (test code=HGB) 11.5 gram/dL 11.5-15.5 HEMATOCRIT (test code=HCT) 36.3 % 36.0-46.0 MEAN CELL VOLUME (test code=MCV) 96.8 fL 80-98 MEAN CELL HGB (test code=MCH) 30.7 picogram 27.0-33.0 MEAN CELL HGB CONCETRATION (test code=MCHC) 31.7 gram/dL 33.0-36.0 RED CELL DISTRIBUTION WIDTH (test code=RDW) 16.3 % 11.6-16.2 PLATELET COUNT (test code=PLT) 156 K/mm3 150-450 MEAN PLATELET VOLUME (test code=MPV) 9.2 fL 6.7-11.0 [id number] 05:17:00* Test Item Value Reference Range Comments MAGNESIUM (test code=MAG) 1.8 mg/dL 1.8-2.4 CBC W/AUTO [id number] 04:52:00* Test Item Value Reference Range Comments WHITE BLOOD CELL (test code=WBC) 3.7 K/mm3 4.5-12.5 RED BLOOD CELL (test code=RBC) 3.37 mill/mm3 3.7-5.2 HEMOGLOBIN (test code=HGB) 10.0 gram/dL 11.5-15.5 HEMATOCRIT (test code=HCT) 32.6 % 36.0-46.0 MEAN CELL VOLUME (test code=MCV) 96.7 fL 80-98 MEAN CELL HGB (test code=MCH) 29.7 picogram 27.0-33.0 MEAN CELL HGB CONCETRATION (test code=MCHC) 30.7 gram/dL 33.0-36.0 RED CELL DISTRIBUTION WIDTH (test code=RDW) 16.5 % 11.6-16.2 RED CELL DISTRIBUTION WIDTH SD (test code=RDW-SD) 58.0 fL 37.0-51.0 PLATELET COUNT (test code=PLT) 126 K/mm3 150-450 MEAN PLATELET VOLUME (test code=MPV) 8.7 fL 6.7-11.0 NEUTROPHIL % (test code=NT%) 33.4 % 39.0-69.0 IMMATURE GRANULOCYTE % (test code=IG%) 0.3 % 0.0-5.0 LYMPHOCYTE % (test code=LY%) 53.0 % 25.0-55.0 MONOCYTE % (test code=MO%) 10.3 % 0.0-10.0 EOSINOPHIL % (test code=EO%) 2.2 % 0.0-5.0 BASOPHIL % (test code=BA%) 0.8 % 0.0-1.0 NUCLEATED RBC % (test code=NRBC%) 0.0 % 0-0 NEUTROPHIL # (test code=NT#) 1.23 K/mm3 1.8-7.7 IMMATURE GRANULOCYTE # (test code=IG#) 0.01 x10 3/uL 0-0.03 LYMPHOCYTE # (test code=LY#) 1.95 K/mm3 1.0-5.0 MONOCYTE # (test code=MO#) 0.38 K/mm3 0-0.8 EOSINOPHIL # (test code=EO#) 0.08 K/mm3 0.0-0.5 BASOPHIL # (test code=BA#) 0.03 K/mm3 0.0-0.2 NUCLEATED RBC # (test code=NRBC#) 0.00 K/mm3 0.0-0.1 [id number] 08:52:00* Test Item Value Reference Range Comments GLUBED (test code=GLUBED) 103 mg/dL 74-106 Performed by certified telegraph and teletype operator at [facility] BASIC METABOLIC [id number] 07:54:00* Test Item Value Reference Range Comments SODIUM (test code=NA) 134 mmol/L 136-145 POTASSIUM (test code=K) 4.6 mmol/L 3.5-5.1 CHLORIDE (test code=CL) 101.0 mmol/L 98-107 CARBON DIOXIDE (test code=CO2) 24.0 mmol/L 21-32 ANION GAP (test code=GAP) 13.6 10-20 GLUCOSE (test code=GLU) 71 mg/dL 74-106 BLOOD UREA NITROGEN (test code=BUN) 18 mg/dL 7-18 GLOMERULAR FILTRATION RATE (test code=GFR) 8 mL/min >=60 Estimated GFR by using Modified MDRD formula.Chronic kidney disease is defined as either kidney damageor GFR <60 mL/min/1.73 m2 for >3 months. CREATININE (test code=CREAT) 5.20 mg/dL 0.55-1.02 Note change in reference range due to change in reagent. BUN/CREATININE RATIO (test code=BUN/CREA) 3.4 10-20 CALCIUM (test code=CA) 7.8 mg/dL 8.5-10.1 [id number] 07:54:00* Test Item Value Reference Range Comments PHOSPHORUS (test code=PHOS) 3.7 mg/dL 2.5-4.9 [id number] 07:54:00* Test Item Value Reference Range Comments MAGNESIUM (test code=MAG) 1.7 mg/dL 1.8-2.4 BASIC METABOLIC [id number] 07:47:00* Test Item Value Reference Range Comments SODIUM (test code=NA) 134 mmol/L 136-145 POTASSIUM (test code=K) 4.6 mmol/L 3.5-5.1 CHLORIDE (test code=CL) 101.0 mmol/L 98-107 CARBON DIOXIDE (test code=CO2) mmol/L 21-32 ANION GAP (test code=GAP) 10-20 GLUCOSE (test code=GLU) mg/dL 74-106 BLOOD UREA NITROGEN (test code=BUN) mg/dL 7-18 GLOMERULAR FILTRATION RATE (test code=GFR) mL/min >=60 CREATININE (test code=CREAT) mg/dL 0.55-1.02 BUN/CREATININE RATIO (test code=BUN/CREA) 10-20 CALCIUM (test code=CA) mg/dL 8.5-10.1 [id number] 07:47:00* Test Item Value Reference Range Comments PHOSPHORUS (test code=PHOS) mg/dL 2.5-4.9 [id number] 07:47:00* Test Item Value Reference Range Comments MAGNESIUM (test code=MAG) mg/dL 1.8-2.4 CBC W/O [id number] 07:15:00* Test Item Value Reference Range Comments WHITE BLOOD CELL (test code=WBC) 4.2 K/mm3 4.5-12.5 RED BLOOD CELL (test code=RBC) 3.11 mill/mm3 3.7-5.2 HEMOGLOBIN (test code=HGB) 10.7 gram/dL 11.5-15.5 HEMATOCRIT (test code=HCT) 31.0 % 36.0-46.0 MEAN CELL VOLUME (test code=MCV) 99.7 fL 80-98 MEAN CELL HGB (test code=MCH) 34.4 picogram 27.0-33.0 MEAN CELL HGB CONCETRATION (test code=MCHC) 34.5 gram/dL 33.0-36.0 RED CELL DISTRIBUTION WIDTH (test code=RDW) 16.4 % 11.6-16.2 PLATELET COUNT (test code=PLT) 142 K/mm3 150-450 MEAN PLATELET VOLUME (test code=MPV) 9.7 fL 6.7-11.0 BASIC METABOLIC [id number] 06:41:00* Test Item Value Reference Range Comments SODIUM (test code=NA) 135 mmol/L 136-145 POTASSIUM (test code=K) 4.2 mmol/L 3.5-5.1 CHLORIDE (test code=CL) 104.0 mmol/L 98-107 CARBON DIOXIDE (test code=CO2) 22.0 mmol/L 21-32 ANION GAP (test code=GAP) 13.2 10-20 GLUCOSE (test code=GLU) 68 mg/dL 74-106 BLOOD UREA NITROGEN (test code=BUN) 12 mg/dL 7-18 GLOMERULAR FILTRATION RATE (test code=GFR) 11 mL/min >=60 Estimated GFR by using Modified MDRD formula.Chronic kidney disease is defined as either kidney damageor GFR <60 mL/min/1.73 m2 for >3 months. CREATININE (test code=CREAT) 4.00 mg/dL 0.55-1.02 Note change in reference range due to change in reagent. BUN/CREATININE RATIO (test code=BUN/CREA) 3.0 10-20 CALCIUM (test code=CA) 7.7 mg/dL 8.5-10.1 BASIC METABOLIC [id number] 06:34:00* Test Item Value Reference Range Comments SODIUM (test code=NA) 135 mmol/L 136-145 POTASSIUM (test code=K) 4.2 mmol/L 3.5-5.1 CHLORIDE (test code=CL) 104.0 mmol/L 98-107 CARBON DIOXIDE (test code=CO2) mmol/L 21-32 ANION GAP (test code=GAP) 10-20 GLUCOSE (test code=GLU) mg/dL 74-106 BLOOD UREA NITROGEN (test code=BUN) mg/dL 7-18 GLOMERULAR FILTRATION RATE (test code=GFR) mL/min >=60 CREATININE (test code=CREAT) mg/dL 0.55-1.02 BUN/CREATININE RATIO (test code=BUN/CREA) 10-20 CALCIUM (test code=CA) mg/dL 8.5-10.1 FECES OVA [id number] 12:13:00* Test Item Value Reference Range Comments CONCENTRATE RESULT (test code=CONC) Final report () These results were obtained using wet preparation(s) andtrichrome stained smear. This test does not include testingfor Cryptosporidium parvum, Cyclospora, or Microsporidia. TRICHROME RESULT (test code=TRIC) SOURCE: STOOLSPECIMEN DESCRIPTION: 1ST SPECIMENFECES OVA [id number] 12:13:00* Test Item Value Reference Range Comments CONCENTRATE RESULT (test code=CONC) Final report () These results were obtained using wet preparation(s) andtrichrome stained smear. This test does not include testingfor Cryptosporidium parvum, Cyclospora, or Microsporidia. TRICHROME RESULT (test code=TRIC) () No ova, cysts, or parasites seen.One negative specimen does not rule out the possibility ofa parasitic infection.Performed At: [facility] [id number] [place], [place] [id number] Karlos Ruiz MD Ph:[phone] SOURCE: STOOLSPECIMEN DESCRIPTION: 1ST SPECIMENBASI METABOLIC [id number] 08:06:00* Test Item Value Reference Range Comments SODIUM (test code=NA) 136 mmol/L 136-145 POTASSIUM (test code=K) 4.3 mmol/L 3.5-5.1 CHLORIDE (test code=CL) 103.0 mmol/L 98-107 CARBON DIOXIDE (test code=CO2) 22.0 mmol/L 21-32 ANION GAP (test code=GAP) 15.3 10-20 GLUCOSE (test code=GLU) 68 mg/dL 74-106 BLOOD UREA NITROGEN (test code=BUN) 17 mg/dL 7-18 GLOMERULAR FILTRATION RATE (test code=GFR) 9 mL/min >=60 Estimated GFR by using Modified MDRD formula.Chronic kidney disease is defined as either kidney damageor GFR <60 mL/min/1.73 m2 for >3 months. CREATININE (test code=CREAT) 5.00 mg/dL 0.55-1.02 Note change in reference range due to change in reagent. BUN/CREATININE RATIO (test code=BUN/CREA) 3.4 10-20 CALCIUM (test code=CA) 8.0 mg/dL 8.5-10.1 BASIC METABOLIC [id number] 07:54:00* Test Item Value Reference Range Comments SODIUM (test code=NA) 136 mmol/L 136-145 POTASSIUM (test code=K) 4.3 mmol/L 3.5-5.1 CHLORIDE (test code=CL) 103.0 mmol/L 98-107 CARBON DIOXIDE (test code=CO2) mmol/L 21-32 ANION GAP (test code=GAP) 10-20 GLUCOSE (test code=GLU) mg/dL 74-106 BLOOD UREA NITROGEN (test code=BUN) mg/dL 7-18 GLOMERULAR FILTRATION RATE (test code=GFR) mL/min >=60 CREATININE (test code=CREAT) mg/dL 0.55-1.02 BUN/CREATININE RATIO (test code=BUN/CREA) 10-20 CALCIUM (test code=CA) mg/dL 8.5-10.1 CBC W/O [id number] 07:41:00* Test Item Value Reference Range Comments WHITE BLOOD CELL (test code=WBC) 3.7 K/mm3 4.5-12.5 RED BLOOD CELL (test code=RBC) 3.02 mill/mm3 3.7-5.2 HEMOGLOBIN (test code=HGB) 11.5 gram/dL 11.5-15.5 HEMATOCRIT (test code=HCT) 30.2 % 36.0-46.0 MEAN CELL VOLUME (test code=MCV) 100.0 fL 80-98 MEAN CELL HGB (test code=MCH) 38.1 picogram 27.0-33.0 MEAN CELL HGB CONCETRATION (test code=MCHC) 38.1 gram/dL 33.0-36.0 RED CELL DISTRIBUTION WIDTH (test code=RDW) 17.0 % 11.6-16.2 PLATELET COUNT (test code=PLT) 168 K/mm3 150-450 MEAN PLATELET VOLUME (test code=MPV) 9.0 fL 6.7-11.0 BASIC METABOLIC [id number] 07:08:00* Test Item Value Reference Range Comments SODIUM (test code=NA) 137 mmol/L 136-145 POTASSIUM (test code=K) 4.2 mmol/L 3.5-5.1 CHLORIDE (test code=CL) 105.0 mmol/L 98-107 CARBON DIOXIDE (test code=CO2) 24.0 mmol/L 21-32 ANION GAP (test code=GAP) 12.2 10-20 GLUCOSE (test code=GLU) 81 mg/dL 74-106 BLOOD UREA NITROGEN (test code=BUN) 13 mg/dL 7-18 RESULT VERIFIED BY REPEAT ANALYSIS GLOMERULAR FILTRATION RATE (test code=GFR) 12 mL/min >=60 Estimated GFR by using Modified MDRD formula.Chronic kidney disease is defined as either kidney damageor GFR <60 mL/min/1.73 m2 for >3 months. CREATININE (test code=CREAT) 3.90 mg/dL 0.55-1.02 Note change in reference range due to change in reagent. BUN/CREATININE RATIO (test code=BUN/CREA) 3.3 10-20 CALCIUM (test code=CA) 7.8 mg/dL 8.5-10.1 BASIC METABOLIC [id number] 06:26:00* Test Item Value Reference Range Comments SODIUM (test code=NA) 137 mmol/L 136-145 POTASSIUM (test code=K) 4.2 mmol/L 3.5-5.1 CHLORIDE (test code=CL) 105.0 mmol/L 98-107 CARBON DIOXIDE (test code=CO2) mmol/L 21-32 ANION GAP (test code=GAP) 10-20 GLUCOSE (test code=GLU) mg/dL 74-106 BLOOD UREA NITROGEN (test code=BUN) mg/dL 7-18 GLOMERULAR FILTRATION RATE (test code=GFR) mL/min >=60 CREATININE (test code=CREAT) mg/dL 0.55-1.02 BUN/CREATININE RATIO (test code=BUN/CREA) 10-20 CALCIUM (test code=CA) mg/dL 8.5-10.1 CBC W/AUTO [id number] 06:19:00* Test Item Value Reference Range Comments WHITE BLOOD CELL (test code=WBC) 4.1 K/mm3 4.5-12.5 RED BLOOD CELL (test code=RBC) 3.34 mill/mm3 3.7-5.2 HEMOGLOBIN (test code=HGB) 10.7 gram/dL 11.5-15.5 HEMATOCRIT (test code=HCT) 32.3 % 36.0-46.0 MEAN CELL VOLUME (test code=MCV) 96.7 fL 80-98 MEAN CELL HGB (test code=MCH) 32.0 picogram 27.0-33.0 MEAN CELL HGB CONCETRATION (test code=MCHC) 33.1 gram/dL 33.0-36.0 RED CELL DISTRIBUTION WIDTH (test code=RDW) 16.9 % 11.6-16.2 RED CELL DISTRIBUTION WIDTH SD (test code=RDW-SD) 58.0 fL 37.0-51.0 PLATELET COUNT (test code=PLT) 154 K/mm3 150-450 MEAN PLATELET VOLUME (test code=MPV) 9.3 fL 6.7-11.0 NEUTROPHIL % (test code=NT%) 45.6 % 39.0-69.0 IMMATURE GRANULOCYTE % (test code=IG%) 0.2 % 0.0-5.0 LYMPHOCYTE % (test code=LY%) 42.5 % 25.0-55.0 MONOCYTE % (test code=MO%) 7.6 % 0.0-10.0 EOSINOPHIL % (test code=EO%) 3.4 % 0.0-5.0 BASOPHIL % (test code=BA%) 0.7 % 0.0-1.0 NUCLEATED RBC % (test code=NRBC%) 0.0 % 0-0 NEUTROPHIL # (test code=NT#) 1.85 K/mm3 1.8-7.7 IMMATURE GRANULOCYTE # (test code=IG#) 0.01 x10 3/uL 0-0.03 LYMPHOCYTE # (test code=LY#) 1.73 K/mm3 1.0-5.0 MONOCYTE # (test code=MO#) 0.31 K/mm3 0-0.8 EOSINOPHIL # (test code=EO#) 0.14 K/mm3 0.0-0.5 BASOPHIL # (test code=BA#) 0.03 K/mm3 0.0-0.2 NUCLEATED RBC # (test code=NRBC#) 0.00 K/mm3 0.0-0.1 MANUAL DIFF REQUIRED (test code=MDIFF) NO LIPID PROFILE (CORONARY RISK)2018-08-15 11:18:00* Test Item Value Reference Range Comments TRIGLYCERIDES (test code=TRIG) 75 mg/dL 20-150 CHOLESTEROL (test code=CHOL) 145 mg/dL 0-200 CHOLESTEROL/HDL RATIO (test code=CHOLHDL) 2.0 RATIO 0-4.9 RISK ASSOCIATED WITH CHOL/HDL RATIOS: Risk Male Female1/2 AVERAGE 3.43 3.27AVERAGE 4.97 4.442X AVERAGE 9.55 7.053X AVERAGE 23.39 11.04 REFERENCE VALUE IS RELATED TO RISK LEVELS ASRECOMMENDED BY THE JAMAL. HEART, LUNG, AND BLOOD INST. HDL CHOLESTEROL (test code=HDL) 50 mg/dL 40-60 LIPOPROTEIN LDL (test code=LDL) 82 mg/dL 100-129 Reference Interval: mg/dL mmol/L Optimal <100 <2.6Near/above optimal 100-129 2.6- 3.3Borderline High 130-159 3.4-4.1High 160-189 4.1-4.9Very High >=190 >=4.9=========This LDL result is a direct measurement.========= HEPATIC FUNCTION [id number] 11:18:00* Test Item Value Reference Range Comments TOTAL PROTEIN (test code=PROT) 6.5 gram/dL 6.4-8.2 ALBUMIN (test code=ALB) 2.6 g/dL 3.4-5.0 GLOBULIN (test code=GLOB) 3.9 gram/dL 2.7-4.2 ALBUMIN/GLOBULIN RATIO (test code=A/G) 0.7 0.75-1.50 BILIRUBIN TOTAL (test code=BILT) 1.40 mg/dL 0.0-1.0 BILIRUBIN DIRECT (test code=BILD) 0.43 mg/dL 0.0-0.20 SGOT/AST (test code=AST) 42 IUnit/L 15-37 SGPT/ALT (test code=ALT) 10 IUnit/L 12-78 ALKALINE PHOSPHATASE TOTAL (test code=ALKP) 93 IUnit/L 45-117 Note change in reference range due to change in reagent. [id number] 11:18:00* Test Item Value Reference Range Comments PHOSPHORUS (test code=PHOS) 2.6 mg/dL 2.5-4.9 URIC [id number] 11:18:00* Test Item Value Reference Range Comments URIC ACID (test code=URIC) 1.7 mg/dL 2.6-7.2 [id number] 11:18:00* Test Item Value Reference Range Comments LIPASE (test code=LIP) 56 U/L 73.0-393.0 [id number] 11:18:00* Test Item Value Reference Range Comments MAGNESIUM (test code=MAG) 1.5 mg/dL 1.8-2.4 THYROID STIMULATING [id number] 11:18:00* Test Item Value Reference Range Comments THYROID STIMULATING HORMONE (test code=TSH) 2.330 uIU/mL 0.36-3.74 TSH REFERENCE RANGES: EUTHYROID: 0.35 - 4.3 mIU/mL HYPO : > 5.5 mIU/mL HYPER : < 0.35 mIU/mL VITAMIN D 1,37-[id number] 11:18:00* Test Item Value Reference Range Comments VITAMIN D 1,25-DIHYDROXY (test nmad=[id number]) 17.4 pg/mL 19.9-79.3 Performed At: [facility] [address] [id number] Sanjai MD Ph:[phone] performed at: [facility] [address] [place] [address] BASIC METABOLIC [id number] 06:20:00* Test Item Value Reference Range Comments SODIUM (test code=NA) 136 mmol/L 136-145 POTASSIUM (test code=K) 4.2 mmol/L 3.5-5.1 CHLORIDE (test code=CL) 103.0 mmol/L 98-107 CARBON DIOXIDE (test code=CO2) 25.0 mmol/L 21-32 ANION GAP (test code=GAP) 12.2 10-20 GLUCOSE (test code=GLU) 104 mg/dL 74-106 BLOOD UREA NITROGEN (test code=BUN) 26 mg/dL 7-18 GLOMERULAR FILTRATION RATE (test code=GFR) 8 mL/min >=60 Estimated GFR by using Modified MDRD formula.Chronic kidney disease is defined as either kidney damageor GFR <60 mL/min/1.73 m2 for >3 months. CREATININE (test code=CREAT) 5.30 mg/dL 0.55-1.02 Note change in reference range due to change in reagent. BUN/CREATININE RATIO (test code=BUN/CREA) 4.9 10-20 CALCIUM (test code=CA) 7.7 mg/dL 8.5-10.1 [id number] 06:20:00* Test Item Value Reference Range Comments PHOSPHORUS (test code=PHOS) 1.9 mg/dL 2.5-4.9 [id number] 06:20:00* Test Item Value Reference Range Comments MAGNESIUM (test code=MAG) 2.1 mg/dL 1.8-2.4 BASIC METABOLIC [id number] 06:13:00* Test Item Value Reference Range Comments SODIUM (test code=NA) 136 mmol/L 136-145 POTASSIUM (test code=K) 4.2 mmol/L 3.5-5.1 CHLORIDE (test code=CL) 103.0 mmol/L 98-107 CARBON DIOXIDE (test code=CO2) mmol/L 21-32 ANION GAP (test code=GAP) 10-20 GLUCOSE (test code=GLU) mg/dL 74-106 BLOOD UREA NITROGEN (test code=BUN) mg/dL 7-18 GLOMERULAR FILTRATION RATE (test code=GFR) mL/min >=60 CREATININE (test code=CREAT) mg/dL 0.55-1.02 BUN/CREATININE RATIO (test code=BUN/CREA) 10-20 CALCIUM (test code=CA) 7.7 mg/dL 8.5-10.1 [id number] 06:13:00* Test Item Value Reference Range Comments PHOSPHORUS (test code=PHOS) mg/dL 2.5-4.9 [id number] 06:13:00* Test Item Value Reference Range Comments MAGNESIUM (test code=MAG) mg/dL 1.8-2.4 CBC W/O [id number] 05:39:00* Test Item Value Reference Range Comments WHITE BLOOD CELL (test code=WBC) 4.1 K/mm3 4.5-12.5 RED BLOOD CELL (test code=RBC) 3.66 mill/mm3 3.7-5.2 HEMOGLOBIN (test code=HGB) 10.7 gram/dL 11.5-15.5 HEMATOCRIT (test code=HCT) 34.9 % 36.0-46.0 MEAN CELL VOLUME (test code=MCV) 95.4 fL 80-98 MEAN CELL HGB (test code=MCH) 29.2 picogram 27.0-33.0 MEAN CELL HGB CONCETRATION (test code=MCHC) 30.7 gram/dL 33.0-36.0 RED CELL DISTRIBUTION WIDTH (test code=RDW) 16.7 % 11.6-16.2 PLATELET COUNT (test code=PLT) 148 K/mm3 150-450 MEAN PLATELET VOLUME (test code=MPV) 8.4 fL 6.7-11.0 - XR CHEST 1 [id number] 08:12:00 FAX: Elsie Glaan MD [phone] [place]: St: ADM FAX: Ashley Carolina NP [phone] Name: FUNMI MONTERROSO [facility] : 1955 Age/S: 63/F [address] [facility]: [id number] Loc: V[address] [place] [address] Phys: Ashley Chaudhary NP Acct: [id number] Dis Date: Status: ADM IN PHONE #: [phone] Exam Date: 08/12/2018729 FAX #: [phone] Reason: respiratory failure EXAMS: CPT CODE: [id number] XR CHEST 1 V 74941 EXAM: Chest x-ray, one view; INFORMATION: Respiratory failure; hypertensive encephalopathy; IMPRESSION: 1. Interim extubation and removal of a nasogastric tube. 2. Otherwise, no major change compared with yesterday's study; 3. Mild cardiomegaly. 4. No acute pulmonary abnormalities. 5. Well-positioned left IJ PermCath; vascular stents. at 0812 Reported and signed by: Albaro Dumont M.D. CC: Elsie Hallman MD; Ashley Chaudhary NP Technologist: MADONNA KRUSE(R) Trnscrd Date/Time/By: 08/12/2018 (0812) : By: [email or web address] Orig Print D/T: S: 08/12/2018 (0815) PAGE 1 Signed Report - XR CHEST 1 [id number] 08:54:00 FAX: Elsie Galan MD [phone] [place]: B St: ADM FAX: Ashley Carolina NP [phone] Name: FUNMI MONTERROSO [facility] : 1955 Age/S: 63/F [address] [facility] Unit #: [id number] Loc: [address] [place] [address] Phys: Ashley Chaudhary NP Acct: [id number] Dis Date: Status: ADM IN PHONE #: [phone] Exam Date: 08/11/2018 0740 FAX #: [phone] Reason: respiratory failure EXAMS: CPT CODE: [id number] XR CHEST 1 V 35551 HISTORY: Respiratory failure. COMPARISON: Previous day. NG tube are unchanged along with bilateral vascular stents. No acute infiltrates, effusion or congestion. Dependent changes. Cardiomegaly. IMPRESSION: No acute infi ltrates, effusion or congestion. at 0854 Reported and signed by: Naif Flynn M.D. CC: Elsie Hallman MD; Andrew Chaudhary NP Technologist: Eneida Doherty RT(R) Trnscrd Date/Time/By: 08/11/2018 (0854) : By: [email or web address] Orig Print D/T: S: 08/11/2018 (0857) PAGE 1 Signed Report - XR CHEST 1 [id number] 11:28:00 FAX: Elsie Galan MD [phone] [place]: B St: ADM FAX: Ashley Carolina NP [phone] Name: FUNMI MONTERROSO [facility] : 1955 Age/S: 63/F [address] Unit #: [id number] Loc: [place] [address] Phys: Ashley Chaudhary NP Acct: [id number] Dis Date: Status: ADM IN PHONE #: [phone] Exam Date: 08/10/2018 1115 FAX #: [phone] Reason: GT placement EXAMS: CPT CODE: [id number] XR CHEST 1 V 17478 HISTORY: NG tube placement. COMPARISON: Chest x-ray from same day. Left catheter and the ET tube are unchanged in position. NG tube is extending into the gastric antrum region. The tip is not included but it is in good position. Axillary stent in the left axillae, left arm and right subclavian vessel. Small bibasal effusions. No infiltrates or congestion. Cardiac silhouette is normal. IMPRESSION: NG tube tip in good position within the stomach. The tip is not included. Small effusions and subsegmental atelectasis without infiltrates or congestion. at 1128 Reported and signed by: Nazario Flynn M.D. CC: Elsie Hallman MD; Ashley Chaudhary NP Technologist: RT SHARONA(R) Trnscrd Date/Time/By: 08/10/2018 (1128) : By: [email or web address] Orig Print D/T: S: 08/10/2018 (4514) PAGE 1 Signed Report - XR CHEST 1 V 2018-08-10 02:30:00 FAX: Elsie Galan MD [phone] [place]: B St: ADM FAX: MELISSA TAYLOR MD Name: FUNMI MONTERROSO [facility] : 1955 Age/S: 63/F [address] Unit #: [id number] Loc: V.2077 [place] [address] Phys: MELISSA TAYLOR MD Acct: [id number] Dis Date: Status: ADM IN PHONE #: [phone] Exam Date: 08/10/2018217 FAX #: [phone] Reason: RESPIRATORY FAILURE EXAMS: CPT CODE: [id number] XR CHEST 1 V 40450 HISTORY: Respiratory failure Location: C3 COMPARISON:08/09/2018 FINDINGS: Endotracheal tube has been placed with tip above the ted. Nasogastric tube has been placed with distal aspect overlying the stomach. Left IJ dialysis catheter is present. Lung volumes are increased. There is vascular prominence and perihilar opacity. No pneumothorax. No other changes. IMPRESSION: 1. Interval intubation and placement of nasogastri c tube. 2. No other changes. at 0230 Reported and signed by : Marc Archuleta MD CC: Elsie Hallman MD; MELISSA TAYLOR MD Technologist: Liz Lan [facility] Date/Time/By: 08/10/2018 (0230) : By: [email or web address] Orig P rint D/T: S: 08/10/2018 (0233) PAGE 1 Signed Report - CT ABD PELVIS [id number] 23:18:00 Name: FUNMI MONTERROSO [facility] : 1955 Age/S: 63 / F [address] Unit #: [id number] Loc: [place] [address] Phys: MELISSA TAYLOR MD Acct: [id number] Dis Date: Status: ADM IN PHONE #: [phone] Exam Date: 08/09/20182246 FAX #: [phone] Reason: N/V/D, AMS EXAMS: CPT CODE: [id number] CT ABD PELVIS W/CONT 53938 - CT ABD PELVIS W/CONT Location: J9 INDICATION: N/V/D, AMS After hours services provided08/09/2018 11:05 PM Technique: Axial CT images were acquired through the abdomen and pelvis with nonionic intravenous contrast. Sagittal and coronal reformatted images are provided for interpretation. All CT scans at this facility use dose modulation, iterative reconstruction, and/or body weight-based dosing when appropriate to reduce radiation dose to as low as reasonably achievable. COMPARISON:Not available Findings: Lower thorax:The heart is enlarged. Small to moderate left-sided pleural fluid collection is noted. Hepatobiliary:Liver is normal in size and density with no focal mass, intrahepatic ductal dilatation or perihepatic fluid collection. The gallbladder is surgically absent. Spleen, pancreas and adrenal glands:Unremarkable. Urogenital:Mild renal atrophy is appreciated. No evidence of renal stone or hydronephrosis. The ureters are normal in course and caliber. The uterus is surgically absent. Gastrointestinal:Diffuse thickening of the large bowel wall is identified. No evidence of bowel obstruction. No free air. Minimal pericolonic fat stranding is appreciated. Scattered colonic diverticuli are present. The small bowel is normal in course and caliber. The appendix is not definitively seen. Lymph nodes and retroperitoneum:No retroperitoneal mass or adenopathy. Vasculature:Calcified atheromatous plaquing with no evidence of aneurysm. Bones and soft tissues:The level lumbar compression deformities, most evident at L4 with no evidence of retropulsion/spinal stenosis. Cystic focus is present within the abdominal wall image 50 series 2 measuring approximately 6.0 x 4.0 cm. Peritoneal dialysis catheter is PAGE 1 Signed Report (CONTINUED) Name: FUNMI MONTERROSO [facility] : 1955 Age/S: 63 / F [address] [facility] Unit #: [id number] Loc: [place] [address] Phys: MELISSA TAYLOR MD Acct: [id number] Dis Date: Status: ADM IN PHONE #: [phone] Exam Date: 08/09/20182246 FAX #: [phone] Reason: N/V/D, AMS EXAMS: CPT CODE: [id number] CT ABD PELVIS W /CONT 83219 <Continued> present. IMPRESSION: 1. Inflammatory versus infectious pancreatitis as above. 2. Cystic focus within the superficial soft tissues of the abdominal wall lower left quadrant. This could represent a remote organized hematoma. 3. Additional findings as above. at 2318 Reported and signed by: Kasi Bradford M.D. CC: MELISSA TAYLOR MD Technologist:MONSTER KATZ, RT; [facility] CTDI: DLP: Trnscb Date/Time: 08/09/2018 (2317) [email or web address] Orig Print D/T: S: 08/09/2018 (2730) CTDI: DLP: PAGE 2 Signed Report - XR CHEST 1 [id number] 19:51:00 FAX: MELISSA TAYLOR MD [place]: B St: ADM Name: FUNMI DA SILVA [facility] : [birth year] Age/S: 63/F [address] Unit #: [id number] Loc: V[address] [place] [address] Phys: MELISSA TAYLOR MD Acct: [id number] Dis Date: Status: ADM IN PHONE #: [phone] Exam Date: 08/09/20181924 FAX #: [phone] Reason: Altered Mental Status EXAMS: CPT CODE: [id number] XR CHEST 1 V 75840 REASON FOR EXAM: Altered M ental Status EXAM ORDER DATE: 08/09/2018 6:24 PM Nargis araiza M.D.: MELISSA TAYLOR MD PROCEDURE: - XR CHEST 1 V COMPARISON: 07/13/2018 FINDINGS: Portable AP frontal view of t he chest obtained at 7:20 PM shows clear lungs. There is no evidence of co nsolidation. There is no evidence of effusion. The heart size is minimally enlarged. Pulmonary vasculatures are minimally congested. Stable appeara nce of the left IJ tunneled dialysis catheter. IMPRESSION : Minimal cardiomegaly and pulmonary venous congestion. Electronical ly Signed by Jimenez Kamara on 08/09/2018 at 1951 Reported and signed by: Robbi Kamara M.D. CC: MELISSA TAYLOR MD Technologist: DINORA MORALES; BRYAN SÁNCHEZ RT (R) Trnscrd Date/Time/By: 08/09/2018 (1950) : By: Juan.VTL Orig Print D/T: S: 08/09/2018 (1953) PAGE 1 Signed Report - CT HEAD/BRAIN W/O CONT 2018-08-09 19:17:00 Name: FUNMI MONTERROSO [facility] : 1955 Age/S: 63 / F [address] Unit #: [id number] Loc: [place] [address] Phys: MELISSA TAYLOR MD Acct: [id number] Dis Date: Status: ADM IN PHONE #: [phone] Exam Date: 08/09/2018 190 FAX #: [phone] Reason: Altered Mental Status EXAMS: CPT CODE: [id number] CT HEAD/BRAIN W/O CONT 64874 REASON FOR EXAM: Altered Mental Status EXAM ORDER DATE: 08/09/2018 6:24 PM Ordering M.Ben: MELISSA TAYLOR MD PROCEDURE: - CT HEAD/BRAIN W/O CONT COMPARISON: 07/13/2018 FINDINGS: CT images of the brain were obtained without IV contrast. Dose reduction techniques were applied. Mild patchy low densities appearance of the paraventricular region noted consistent with nonspecific white matter disease. The hernandes-white matter delineation is unremarkable. The ventricles, cisterns, and sulci are unremarkable. There is no evidence of hemorrhage, mass, mass effect. There is no evidence of acute infarct. The calvarium is intact. IMPRESSION: Probable chronic infarct in the left pepito and right caudate nucleus head. No acute findings. at 1917 Reported and signed by: Robbi Kamara M.D. CC: MELISSA TAYLOR MD Technologist:Eleni Mckinney RT(R) CTDI: DLP: Trnscb Date/Time: 08/09/2018 (1916) FelibertoVTL Orig Print D/T: S: 08/09/2018 (1920) CTDI: DLP: PAGE 1 Signed Report - XR CHEST 1 [id number] 01:27:00 FAX: Kiko Vinson [phone] [place]: St: DIS Name: FUNMI DA SILVA [facility] : [birth year] Age/S: 63/F [address] Unit #: [id number] Loc: [address] [place] [address] Phys: Kiko Dodge MD Acct: [id number] Dis Date: Status: DIS IN PHONE #: [phone] Exam Date: 07/13/2018 0123 FAX #: [phone] Reason: CODE SEPSIS EXAMS: CPT CODE: [id number] XR CHEST 1 V 90700 HISTORY: Sepsis Loca tion: C3 COMPARISON:06/26/2018 FINDINGS: Left approach dialysis catheter is again noted. There is cardiomegaly with mild vascular congestion. Mild perihilar prominence is present. No pneumothorax. No other changes. IMPRESSION: 1. Findings of CHF/volume overload mildly increased compared to prior study. at 0127 Reported and signed by: Marc Archuleta MD CC: Kiko Dodge MD Technol ogist: MONSTER KATZ RT Trnscrd Date/Time/ By: 07/13/2018 (0127) : By: [email or web address] Orig Print D/T: S: 07/13/2018 (0 130) PAGE 1 Signed Report - CT HEAD/BRAIN W/O [id number] 01:21:00 Name: FUNMI MONTERROSO [facility] : 1955 Age/S: 63 / F [address] Unit #: [id number] Loc: [place] [address] Phys: Kiko Dodge MD Acct: [id number] Di s Date: 20180723 Status: DIS IN PHONE #: [phone] Exam Date: 07/13/2018 0111 FAX #: Reason: ams EXAMS: CPT CODE: [id number] CT HEAD/BRAIN W/O CONT 86595 AFTER HOURS SERVICE ON: 1 09/13/2017 1:[address] Scan of the Brain Without Contrast Location Code M12 History: ams Technique: Scans were performed on a helical scanner pre IV contrast only. The study is li mited secondary to lack of intravenous contrast, particularly for evaluati on of masses. CT images were performed within 24 hours at arrival to the [facility]. One or more of the following dose reduction techniques we re used: Automated exposure control, adjustment of the mA and/or kV accord ing to patient size, and/or utilization of iterative reconstruction technique. Findings: There is no hydrocephalus. Bas al cisterns are patent. There is no intracranial hyperdense hemorrhage. Th ere is no midline shift or mass effect. No effacement of the hernandes-white ma tter junction to indicate acute infarction. There are chronic ischemic whi te matter changes. Impression: No acute intra cranial CT findings. Senescent changes. Electronical ly Signed by Shanda Bolaños M.D. on 07/13/2018 at 0121 Reported and signed by: Shanda Bolaños M.D. CC: Kiko Dodge MD Technologist:CELINA TRENT CT CTDI: DLP: Trnscb Date/Time: 07/13/2018 (0121) [email or web address] Orig Print D/T: S: 07/13/2018 (0124) CTDI: DLP: PAGE 1 Signed Report - CT HEAD/BRAIN W/O [id number] 18:12:00 Name: FUNMI MONTERROSO [facility] : 1955 Age/S: 63 / F [address] [facility] Unit #: [id number] Loc: [place] [address] Phys: Pamela Rice MD Acct: [id number] Dis Date: [id number] Status: DIS IN PHONE #: [phone] Exam Date: 06/29/2018 175 FAX #: [phone] Reason: Headache EXAMS: CPT CODE: [id number] CT HEAD/BRAIN W/O CONT 34445 HISTORY: Headache TECHNIQUE: Noncontrast 2.[address] of the head. Examination acquired within 24 hours of arrival. Automated exposure control for dose reduction; DLP: 782 mGy-cm. COMPARISON: 06/25/18 FINDINGS: No acute hemorrhage. No intracranial mass, mass effect, or midline shift. No CT evidence of acute infarct. Chronic bilateral caudate, right thalamic, and bilateral cerebellar lacunar infarcts. Mild periventricular chronic microvascular ischemic changes. Moderate parenchymal atrophy. No hydrocephalus. No extra-axial fluid collection. Atherosclerotic vascular calcification of the internal carotid and vertebral arteries. Visualized paranasal sinuses are clear. Mastoid air cells and middle ear cavities are clear. Bilateral lens implants. Calvarium and skull base are intact. IMPRESSION: No acute intracranial process. No significant interval change. at 1812 Reported and signed by: Leola Begum D.O. CC: Pamela Rice MD; Elsie Hallman MD Technologist:JAYCEE CORTEZ RT(R); Eleni Duran CTDI: DLP: Trnscb Date/Time: 06/29/2018 (1811) [email or web address] Orig Print D/T: S: 06/29/2018 (1815) CTDI: DLP: PAGE 1 Signed Report - XR CHEST 1 [id number] 09:34:00 FAX: Maxwell Mcgraw MD [phone] [place]: B St: DIS FAX: Lisa Snow MD [phone] Name: FUNMI MONTERROSO [facility] : 1955 Age/S: 63/F [address] [facility] Unit #: [id number] Loc: [address] [place] [address] Phys: Lisa Snow MD Acct: [id number] Dis Date: [id number] Status: DIS IN PHONE #: [phone] Exam Date: 06/26/201850 FAX #: [phone] Reason: CHEST PAIN EXAMS: CPT CODE: [id number] XR CHEST 1 V 16200 HISTORY: Chest pain. COMPARISON: Previous day. Left line and bilateral stents are unchanged. Suboptimal inspiration with scarring. No acute infiltrates, effusion or congestion is noted. The cardiac and mediastinal silhouette are within normal limits. IMPRESSION: No acute infiltrates, effusion or congestion. Suboptimal inspiration with scarring. at 0934 Reported and signed by: Nazario Flynn M.D. CC: Maxwell Crowe; Lisa Snow MD Technologist: RT SHARONA(R) Trnscrd Date/Time/By: 06/26/2018 (0934) : By: [email or web address] Orig Print D/T: S: 06/26/2018 (5130) PAGE 1 Signed Report - XR CHEST 1 [id number] 08:24:00 FAX: Lisa Snow MD [phone] [place]: B St: DIS Name: FUNMI DA SILVA [facility] : [birth year] Age/S: 63/F [address] Unit #: [id number] Loc: V.[address] [place] [address] Phys: Lisa Snow MD Acct: [id number] Dis Date: 1800903 Status: DIS IN PHONE #: [phone] Exam Date: 06/25/2018 07 FAX #: [phone] Reason: Altered Mental Status EXAMS: CPT CODE: [id number] XR CHEST 1 V 47528 HISTORY: Shortness of breath. COMPARISON: May 26, 2018. Left catheter is unchanged. Stent within the right subclavian and left axillary vessel. No acute infiltrates, effusion or congestion. Dependent changes. Scar ring. Cardiomegaly. IMPRESSION: No acute infi ltrates, effusion or congestion. at 0824 Reported and signed by: Naif Flynn M.D. CC: Lisa Snow MD Technologist: Eneida KRUSE(R) Trnscrd Date/Time/By: 06/25/2018 (823) : By: [email or web address] Orig Print D/T: S: 06/25/2018 (826) PAGE 1 Signed Report - CT HEAD/BRAIN W/O CONT 2018-06-25 07:34:00 Name: FUNMI MONTERROSO [facility] : 1955 Age/S: 63 / F [address] Unit #: [id number] Loc: [place] [address] Phys: Lisa Snow MD Acct: [id number] Dis Date: [id number] Status: DIS IN PHONE #: [phone] Exam Date: 06/25/2018 0729 FAX #: [phone] Reason: Altered Mental Status EXAMS: CPT CODE: [id number] CT HEAD/BRAIN W/O CONT 30275 HISTORY: Confusion. COMPARISON: April 04, 2018 CT brain without contrast: Automated exposure control. No acute intracranial bleeds or extra-axial collections are noted. No acute territorial vascular infarction is noted. The sulci, gyri, ventricles and subarachnoid spaces and the basilar cisterns are normal for patient's age. No herniation or hydrocephalus or midline shift is noted. Mild periventricular ischemic gliosis is noted. Age-appropriate atrophy is noted as well. Portions of the visualized paranasal sinuses are normal. No obvious bony calvarial defect is noted. IMPRESSION: No acute intracranial bleeds or extra- axial collections. No acute territorial vascular infarction. No herniation or hydrocephalus or midline shift. Chronic white matter ischemic disease and atrophy . at 0734 Reported and signed by: aNzario Flynn M.D. CC: Lisa Snow MD Technologist:Ailyn Heart RT(R),CT; CTDI: DLP: Trnscb Date/Time: 06/25/2018 (07) [email or web address] Orig Print D/T: S: 06/25/2018 (0737) CTDI: DLP: PAGE 1 Signed Report - SP FLUORO GUID CTRL ACC [id number] 06:44:00 Name: FUNMI MONTERROSO [facility] SP : 1955 Age/S: 63 / F [address] [facility] Unit #: [id number] Loc: [place] [address] Phys: True Hallman MD Acct: [id number] Di s Date: 20180613 Status: DIS IN PHONE #: [phone] Exam Date: 05/29/2018 9214 FAX #: Reason: EXAMS: CPT CODE: [id number] SP FLUORO GUID CTRL ACC DEV 78692 Fluoro Time: 3.1 DAP (Gy m2 ): Air Kerma (mGy): 0.56 REASON FOR EXAM: Working left neck fior lysis catheter with nonworking left groin dialysis catheter Exam order date: 05/29/2018 1:59 PM PROCEDURE: Removal Of Tunneled Hemodialysis Catheter CPT code: 07290, 40157 FINDING S: After informed consent was obtained, the patient was brought to special procedures and placed supine on the table. The right groin was prepped and draped in the usual fashion. All maximal sterile barrier techniques were applied. 2% local lidocaine was given. Using blunt dissection, the cuff was freed with a hemostat and the catheter was removed. The tip was sent for culture. MEDICATIONS: None. COMPLICATIONS: None. Fluoroscopic time: 3 sec Fluoroscopic dose: 0.6 mGy N umber of fluoroscopic images obtained: 3 IMPRESSION: Right commo n femoral vein TUNNELED HEMODIALYSIS CATHETER WAS REMOVED. E lectronically Signed by Jimenez Kamara on 05/30/2018 at 0644 Reported and signed by: Robbi Kamara M.D. CC: Elsie Hallman MD Technologist: Eneida Doherty RT(R) Trnscb Date/Time: 05/30/2018 (0644) [email or web address] Orig Print D/T: S: 05/30/2018 (0648) PAGE 1 Signed Report - SP FLUORO GUID CTRL ACC DEV 2018-05-26 14:39:00 Name: FUNMI MONTERROSO [facility] SP : 1955 Age/S: 63 / F [address] [facility] Unit #: [id number] Loc: [place] [address] Phys: Elsie Hallman MD Acct: [id number] Dis Date: 20180613 Status: DIS IN PHONE #: [phone] Exam Date: 05/26/2018 1145 FAX #: [phone] Reason: EXAMS: CPT CODE: [id number] SP FLUORO GUID CTRL ACC DEV 08564 Fluoro Time: 28.1 DAP (Gy m2): 0 Air Kerma (mGy): 3.9 REASON FOR EXAM: ESRD Referring Physician: Elsie Hallman MD PROCEDURE: Ultrasound and fluoroscopic guided tunneled hemodialysis catheter placement with IV conscious sedation CPT code: 88557, 26106,95850 Yubf-hr-rlor procedure time is approximately: 1 hour FINDINGS: After informed consent was obtained, the patient was brought to special procedures and placed supine on the table. The left neck and chest wall were prepped and draped in the usual fashion. All elements of maximal sterile barrier technique were followed. US shows patency of the left collateral vein. Images of the vein were submitted to PACS. The vein is patent and compressible. 2% local lidocaine was given for local anesthetic in the neck and chest wall. Under real time ultrasound guidance, a micropuncture needle was used to access the vein. A terminal manager dialysis catheter was tunneled under the subcutaneous tissue and inserted through a sheath with the tip positioned SVC under direct fluoroscopic guidance. The catheter was sutured to the subcutaneous tissue with prolene sutures and is ready for use. MEDICATIONS: None. COMPLICATIONS: None. Blood loss: less than 5cc Fluoroscopic time:28 sec Fluoroscopic dose:3.9 mGy Number of fluoroscopic images obtained: 2 IMPRESSION: Left IJ tunneled hemodialysis catheter is ready for use. at 1439 Reported and signed by: Robbi Kamara M.D. CC: Elsie Hallman MD Technologist: RT DEJAH Trnmab Date/Time: 05/26/2018 (143) tELENO Orig Print D/T: S: 05/26/2018 (6707) PAGE 1 Signed Report - US GUIDANCE VASC [id number] 14:39:00 Name: FUNMI MONTERROSO [facility] SP : 1955 Age/S: 63 / F [address] [facility] Unit #: [id number] Loc: [place] [address] Phys: Elsie Hallman MD Acct: [id number] Dis Date: 20180613 Status: DIS IN PHONE #: [phone] Exam Date: 05/26/2018 1145 FAX #: [phone] Reason: EXAMS: CPT CODE: [id number] US GUIDANCE VASC ACCESS 07943 Fluoro Time: DAP (Gy m2): Air Kerma (mGy): REASON FOR EXAM: ESRD Referring Physician: Elsie Hallman MD PROCEDURE: Ultrasound and fluoroscopic guided tunneled hemodialysis catheter placement with IV conscious sedation CPT code: 42014, 89140,57360 Xfeq-gj-ehur procedure time is approximately: 1 hour FINDINGS: After informed consent was obtained, the patient was brought to special procedures and placed supine on the table. The left neck and chest wall were prepped and draped in the usual fashion. All elements of maximal sterile barrier techn ique were followed. US shows patency of the left collateral vein. Images o f the vein were submitted to PACS. The vein is patent and compressible. 2% local lidocaine was given for local anesthetic in the neck and chest wa . Under real time ultrasound guidance, a micropuncture needle was used to access the vein. A terminal manager dialysis catheter was tunneled under the subcutaneous tissue and inserted through a sheath with the tip positi oned SVC under direct fluoroscopic guidance. The catheter was sutured to t subcutaneous tissue with prolene sutures and is ready for use. MEDICATIONS: None. COMPLICATIONS: None. Blood loss: less than 5cc Fluoroscopic time:28 sec Fluoroscopic do se:3.9 mGy Number of fluoroscopic images obtained: 2 IMPRE SSION: Left IJ tunneled hemodialysis catheter is ready for use. Elec tronically Signed by Jimenez Kamara on 05/26/2018 at 0015 Reported and signed by: Robbi Kamara M.D. CC: Elsie Hallman MD Technologist: RT DEJAH Trnmab Date/Time: 05/26/2018 (6992) [email or web address] Orig Print D/T: S: 05/26/2018 (9719) PAGE 1 Signed Re port - XR CHEST 1 [id number] 12:46:00 FAX: Elsie Galan MD [phone] [place]: B St: DIS Name: FUNMI DA SILVA [facility] : [birth year] Age/S: 63/F [address] [facility] Unit #: [id number] Loc: [address] [place] [address] Phys: Robbi Kamara MD Acct: [id number] Dis Date: 1800813 Status: DIS IN PHONE #: [phone] Exam Date: 05/26/2018 1231 FAX #: [phone] Reason: HD CATHETER EXAMS: CPT CODE: [id number] XR CHEST 1 V 97595 HISTORY: HD CATHETER TECHNIQUE: AP chest x-ray COMPARISON: 04/03/18 IMP RESSION: No pneumothorax. No airspace consolidation or pleural effusion. Left basilar scarring. Normal heart size. Tortuous thoracic a vandana with vascular calcification. Bilateral brachiocephalic and left axi llary stents. Left permacath with distal tip in the right atrium. Sterno ian wires. Degenerative changes of the spine. Barbara ctronically Signed by Leola Begum D.O. on 05/26/2018 at 1246 Reported and signed by: Leola Begum D.O. CC: Kimberly Hallman MD Technologist: RAIN Wallace RT(R) Trnscrd Date/Time/By: 05/26/2018 (1442) : By : [email or web address] Orig Print D/T: S: 05/26/2018 (9182) PAGE 1 Signed Report - CT HEAD/BRAIN W/O [id number] 10:06:00 Name: FUNMI MONTERROSO [facility] : 1955 Age/S: 63 / F [address] [facility] Unit #: [id number] Loc: [place] [address] Phys: Elsie Hallman MD Acct: [id number] Dis Date: Status: DIS IN PHONE #: [phone] Exam Date: 04/04/2018958 FAX #: [phone] Reason: CHANGE IN MENTAL STATUS EXAMS: CPT CODE: [id number] CT HEAD/BRAIN W/O CONT 98960 HISTORY: CHANGE IN MENTAL STATUS TECHNIQUE: Noncontrast 2.[address] of the head. Examination acquired within 24 hours of arrival. Automated exposure control for dose reduction; DLP: 709 mGy-cm. COMPARISON: 02/06/18 FINDINGS: No CT evidence of acute infarct. Chronic right caudate head, right thalamic, and bilateral cerebellar lacunar infarcts. Mild periventricular chronic microvascular ischemic changes. No acute hemorrhage. No intracranial mass, mass effect, or midline shift. Mild parenchymal atrophy. No hydrocephalus. No extra-axial fluid collection. Atherosclerotic vascular calcification of the internal carotid and vertebral arteries. Visualized paranasal sinuses are clear. Mastoid air cells and middle ear cavities are clear. Bilateral lens implants. Calvarium and skull base are intact. IMPRESSION: No CT evidence of acute infarct. MRI would be more sensitive if there is continued clinical concern. No acute intracranial hemorrhage. Called to patient's floor nurse at 1006 hours. at 1006 Reported and signed by: Leola Begum D.O. CC: Elsie Hallman MD Technologist:JAYCEE CORTEZ RT(R); [place] CTDI: DLP: Trnscb Date/Time: 04/04/2018 (1006) [email or web address] Orig Print D/T: S: 04/04/2018 (1009) CTDI: DLP: PAGE 1 Signed Report - XR CHEST 1 [id number] 14:01:00 FAX: Elsie Galan MD [phone] [place]: St: DIS Name: FUNMI DA SILVA [place] [facility] : [birth year] Age/S: 63/F [address] [facility] Unit #: [id number] Loc: [place] [address] Phys: Robbi Kamara MD Acct: [id number] Dis Date: Status: DIS IN PHONE #: [phone] Exam Date: 04/03/2018 1259 FAX #: [phone] Reason: POST LINE PLACEMETN EXAMS: CPT CODE: [id number] XR CHEST 1 V 11150 EXAM: Chest X-ray, 1 view; CLINICAL HISTORY: End-stage renal disease, post line placement; IMPRESSION: 1. The tip of a new left IJ central line is positioned in the SVC. 2. No evidence of a pneumothorax or other acute cardiothoracic abnormalities. 3. Metallic stents are seen in the left b rachiocephalic vein and the left axillary vein; 4. The tip of a right IJ tunneled hemodialysis catheter is positioned in the cranial as pect of the right atrium. 4. Lungs are clear. 5. The heart is normal in size. at 1401 Reported and signed by: Albaro Dumont M.D. CC: Elsie Hallman MD Technologist: CATRINA ALVARES RT(R) Trnscrd Date/Time/By: 0 04/03/2018 (8941) : By: FelibertoGRW Orig Print D/T: S: 04/03/2018 (1036) PAGE 1 Signed Report - SP FLUORO GUID CTRL ACC [id number] 13:16:00 Name: FUNMI MONTERROSO [facility] SP : 1955 Age/S: 63 / F [address] Unit #: [id number] Loc: [place] [address] Phys: True Hallman MD Acct: [id number] Di s Date: Status: DIS IN PHONE #: Exam Date: 04/03/2018 1244 FAX #: [phone] Reason: EXAMS: CPT CODE: [id number] SP FLUORO GUID CTRL ACC DEV 70972 Fluoro Time: 2 DAP (Gy m2 ): 402 Air Kerma (mGy): 1.04 REASON FOR EXAM: Anemia Exam Order Date: 04/03/2018 12:36 PM Attending Jimenez: Elsie Hallman MD PROCEDURE: Fluoroscopic and ultrasound guided central line placement FINDINGS: After informed consent was obtained, the patient was brought to special procedures and placed supine on the table. The left neck was prepped and draped in the usual fashion. All elements of maximal sterile barrier technique were followed. Ultrasound showed patency of the left IJ. No thrombus identified, the vein is patent. Images of the vein were submitted to PACS. Under real time ultrasound guidance, a micropuncture needle was used to access the vein. A catheter was inserted with the tip positioned within the SVC under fluoroscopic guidance. The catheter was sutured to the subcutaneous tissue and is ready for use. MEDICATIONS: None. COMPLICATIONS: None. Blood Loss: less than 5cc Fluoroscopic time:2 sec Fluoroscop ic dose:1 mGy Number of images obtained: 2 IMPRESS ION: Left IJ triple lumen central line is ready for use. Electronica lly Signed by Jimenez Kamara on 04/03/2018 at 1316 Reporte d and signed by: Robbi Kamara M.D. CC: Elsie Hallman MD Technologist: Eneida Doherty RT(R) Trnscb Date/Time: 04/03/2018 (1316) t.SDR.VTL Orig Print D/T: S: 04/03/2018 (3288) PAGE 1 Signed Report - US GUIDANCE VASC [id number] 13:16:00 Name: FUNMI MONTERROSO [facility] SP : 1955 Age/S: 63 / F [address] Unit #: [id number] Loc: [place] [address] Phys: True Hallman MD Acct: [id number] Di s Date: Status: DIS IN PHONE #: [phone] Exam Date: 04/03/2018 1244 FAX #: Reason: EXAMS: CPT CODE: [id number] US GUIDANCE VASC ACCESS 64686 Fluoro Time: DAP (Gy m2): Air Kerma (mGy): REASON FOR EXAM: Anemia Exam Order Date: 04/03/2018 12:36 PM Attending Jimenez: Elsie Hallman MD PROCEDURE: Fluoroscopic and ultrasound guided central line placement FINDINGS: After informed consent was obtained, the patient was brought to special procedures and placed supine on the table. The left neck was prepped and draped in the usual fashion. All elements of maximal sterile barrier technique were followed. Ultrasound showed patency of the left IJ. No thrombus identified, the vein is patent. Images of the vein were submitted to PACS. Under real time ultrasound guidance, a micropuncture needle was used to access the vein. A catheter was inserted with the tip positioned within the SVC under fluoroscopic guidance. The catheter was sutured to the subcutaneous tissue and is ready for use. MEDICATIONS: None. COMPLICATIONS: None. Blood Loss: less than 5cc Fluoroscopic time:2 sec Fluoroscop ic dose:1 mGy Number of images obtained: 2 IMPRESS ION: Left IJ triple lumen central line is ready for use. Electronica lly Signed by Jimenez Kamara on 04/03/2018 at 1316 Reporte d and signed by: Robbi Kamara M.D. CC: Elsie Hallman MD Technologist: Eneida Doherty RT(R) Trnscb Date/Time: 04/03/2018 (1316) t.SDR.VTL Orig Print D/T: S: 04/03/2018 (0409) PAGE 1 Signed Report - SHARI UE ART UNI [id number] 17:05:00 Name: FUNMI MONTERROSO [facility] : 1955 Age/S: 63 / F [address] [facility] Unit #: [id number] Loc: [place] [address] Phys: Eleno Rashid MD Acct: [id number] Di s Date: Status: DIS IN PHONE #: Exam Date: 03/23/20182019 FAX #: Reason: ANEURYSMAL DISEASE, FISTULA EVALUATION EXAMS: CPT CODE: [id number] [facility] UE ART UNI [address]24 EXAM: Duplex sonography of the arterial system of the left upper extremity and of a left upper arm AV graft. INFORMATION: Patient with end-stage renal disease; malfu nctioning left upper arm graft; TECHNIQUE AND FINDINGS: Grayscale imaging of the left upper arm was combined with color Doppler sonography and spectral analysis. The left subclavian, axillary and brachi al arteries are patent without significant plaques or stenosis. The left radial and ulnar arteries are patent. A U shaped AV graft was demonst rated in the left upper arm. It was patent. The arterial anastomosis venita sured 5 mm in diameter. The venous anastomosis was also widely patent and the left axillary and subclavian veins were patent. A stent was noti prosper within the patent subclavian vein. A fluid collection was demonstrated in the left upper arm. It is without internal echoes and without flow corral ggesting a seroma. IMPRESSION: 1. Patent left upper arm AV graft with patent arterial anastomosis and venous anastomosis. 2. Patent arterial system of the left arm. 3. Patent central venous outflow. 4. Fluid collection in the left upper arm near the graft cons istent with a seroma; this fluid collection not a pseudoaneurysm and gifford s not have features of an abscess. Electronically S igned by Jimenez Dumont on 03/29/2018 at 1705 Reported and signed by: Albaro Dumont M.D. CC: Domingo Rashid MD; Elsie Hallman MD [facility] gist: JOSE LUIS HAGAN [facility] Date/Time: 0 03/29/2018 (1704) t.SDR.GRW Orig Print D/T: S: 03/29/2018 (7106) Probe: PAGE 1 Signed Rep ort - XR CHEST 1 [id number] 21:43:00 FAX: Marc Mills [phone] [place]: St: DIS Name: FUNMI DA SILVA [facility] : [birth year] Age/S: 63/F [address] [facility] Unit #: [id number] Loc: [place] [address] Phys: Marc Castillo MD Acct: [id number] Dis Date: Status: DIS IN PHONE #: [phone] Exam Date: 02/26/20182136 FAX #: [phone] Reason: CODE SEPSIS EXAMS: CPT CODE: [id number] XR CHEST 1 V 59992 REASON FOR EXAM: CODE SEPSIS EXAM ORDER DATE: 2018 9:25 PM Ordering Jimenez: Marc Castillo MD PROCEDURE: - XR CHEST 1 V CO MPARISON: 02/05/2018 FINDINGS: Portable AP frontal view of the [facility] st obtained at 9:34 PM shows clear lungs. There is no evidence of consolid ation. There is no evidence of effusion. The heart size is within normal l imits. Pulmonary vasculatures are unremarkable. Stable appearance of the right IJ dialysis catheter. IMPRESSION: No active disease. at 2143 Reported and signed by: Robbi Kamara M.D. CC: Marc Castillo MD Technologist: Caty mcdermott; YanTracey L. Trnscrd Date/Time/By: 2018 ( 2142) : By: Sloane Orig Print D/T: S: 2018 (2145) PAGE 1 Signed Report - SP FLUORO GUID CTRL ACC [id number] 14:14:00 Name: FUNMI MONTERROSO [facility] 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 Images of a collateral vein with direct connection to the central venous system was obtained. Images were submitted to PACS. The vein is patent without thrombus. Under direct sonoguidance, this collateral vein was accessed with a micropuncture needle at 1414 Reported and signed by: Robbi Kamara M.D. Transcribed: 02/14/2018 (7585) Sloane Report REASON FOR EX AM:Nonfunctioning left upper extremity AV graft PROCEDURE: 1 . AV fistulogram 2. Angioplasty of the arterial inflow 3. Angiopl asty of the venous outflow 4. Mechanical thrombectomy of the clots within the AV graft 5. Intravenous thrombolytic treatment with alteplase Anesthesia: General Anesthesiologist: Dr. Jessica HOWELL: After informed consent was obtained, the patient was brought to ecial procedures and placed supine on the table. The left arm was prepped was draped in the usual fashion. All elements of maximal sterile barrier techniques were applied. Ultrasound demonstrates complete thrombosis of t he left upper extremity AV graft. The arterial inflow of the AV graft is the high brachial artery. The venous outflow of the AV graft. The left a xillary vein. Under real time ultrasound guidance, a micropunctu re needle was used to access the arterial limb of the AV graft. A 6-Frenc h vascular sheath was inserted. The patient has existing covered stent wi thin the venous portion of the AV graft. Angioplasty of the venous limb o f the AV graft was performed with 8 mm balloon. Under real-time ult rasound guidance, a micropuncture needle was used to access the venous alvarez b of the AV graft and a 2nd 6-Cypriot sheath was inserted. A PAGE 1 Signed Report (CONTINUED) Name: FUNMI MONTERROSO [facility] : 1955 Age/S: 62 / F [address] [facility] Unit #: [id number] Loc: [place], [place] [address] Phys: Elsie Hallman MD Acct: [id number] Dis Date: Status: DIS IN PHONE #: [phone] Exam Date: 01/09/2018 4430 FAX #: [phone] Reason: Report Has Been Amended EXAMS: CPT C ODE: [id number] SP FLUORO GUID CTRL ACC DEV 57281 Fluoro Time: 144 DAP (Gy m2): 72137 Air Kerma (mGy): 29.49 < Continued> guidewire was advanced past the arterial anastomosis into the left brachial artery. A Eliud balloon was used to remove the arterial plug. Additional angioplasty and mechanical thrombectomy of the AV graft was performed with 6 mm balloon. At this time there was good flow through the AV graft with persistent thrombus at the venous anastomosis site in the left axillary vein. Attempt to remove the clot was not successful. An infusion catheter was then placed across the clot and alteplase was given Under direct ultrasound guidance, micropuncture needle was used to access a collateral vein in the right neck. The tract was dilated to accept a temporary hemodialysis catheter. The catheter was sutured to the subcutaneous tissue and is ready for use MEDICATIONS: None COMPLICATIONS: None Blood loss: Less than 5 mL Fluoroscopic time: 144 seconds Radiation dose: 29 mGy IMPRESSION: Temporary right IJ hemodialysis catheter is ready for use. Successful declot of occluded left upper extremity AV graft. Persistent large clots at the venous anastomosis with the left axillary vein. Intravenous thrombolytic treatment was given with alteplase with plan for follow-up venogram the next day at 1037 Reported and signed by: Robbi Kamara M.D. CC: Ryan Munroe MD; Elsie Hallman MD Technologist: Eneida Doherty RT(R) Trnscb Date/Time: 01/10/2018 (1037) FelibertoVTL Orig Print D/T: S: 01/10/2018 (9075) PAGE 2 Signed Report - US GUIDANCE VASC [id number] 14:14:00 Name: FUNMI MONTERROSO [facility] 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 Images of a collateral vein with direct connection to the central venous system was obtained. Images were submitted to PACS. The vein is patent without thrombus. Under direct sonoguidance, this collateral vein was accessed with a micropuncture needle at 1414 Reported and signed by: Robbi Kamara M.D. Transcribed: 02/14/2018 (3528) EddieR.VTL Report REASON FOR EXAM:Nonfunctioning left upper extremity AV graft PROCEDURE: 1. AV fistulogram 2. Angioplasty of the arterial inflow 3. Angioplasty of the venous outflow 4. Mechanical thrombectomy of the clots within the AV graft 5. Intravenous thrombolytic treatment with alteplase Anesthesia: General Anesthesiologist: Dr. Lopez FINDINGS: After informed consent was obtained, the patient was brought to special procedures and placed supine on the table. The left arm was prepped was draped in the usual fashion. All elements of maximal sterile barrier techniques were applied. Ultrasound demonstrates complete thrombosis of the left upper extremity AV graft. The arterial inflow of the AV graft is the high brachial artery. The venous outflow of the AV graft. The left axillary vein. Under real time ultrasound guidance, a micropuncture needle was used to access the arterial limb of the AV graft. A 6-Cypriot vascular sheath was inserted. The patient has existing covered stent within the venous portion of the AV graft. Angioplasty of the venous limb of the AV graft was performed with 8 mm balloon. Under real-time ultrasound guidance, a micropuncture needle was used to access the venous limb of the AV graft and a 2nd 6-Cypriot sheath was inserted. A PAGE 1 Signed Report (CONTINUED) Name: FUNMI MONTERROSO [facility] SP : 1955 Age/S: 62 / F [address] [facility] Unit #: [id number] Loc: [place] [address] Phys: Elsie Hallman MD Acct: [id number] Dis Date: Status: DIS IN PHONE #: [phone] Exam Date: 01/09/2018 9048 FAX #: [phone] Reason: Report Has Been Amended EXAMS: CPT CODE: [id number] US GUIDANCE VASC ACCESS 78404 Fluoro Time: 144 DAP (Gy m2): 16595 Air Kerma (mGy): 29.49 <Continued> guidewire was advanced past the arterial anastomosis into the left brachial artery. A Eliud balloon was used to remove the arterial plug. Additional angioplasty and mechanical thrombectomy of the AV graft was p erformed with 6 mm balloon. At this time there was good flow through the AV graft with persistent thrombus at the venous anastomosis site in the le ft axillary vein. Attempt to remove the clot was not successful. An infu stefanie catheter was then placed across the clot and alteplase was given Under direct ultrasound guidance, micropuncture needle was used to access a collateral vein in the right neck. The tract was dilated to accept a temporary hemodialysis catheter. The catheter was sutured to the subcutaneous tissue and is ready for use MEDICATIONS: None COMPLICATIONS: None Blood loss: Less than 5 mL Fluoroscopic time: 144 seconds Radiation dose: 29 mGy IMPRESSION: Tempo rary right IJ hemodialysis catheter is ready for use. Successful declot of occluded left upper extremity AV graft. Persistent large clots at t he venous anastomosis with the left axillary vein. Intravenous thrombol ytic treatment was given with alteplase with plan for follow-up venogram the next day at 1037 Reported and signed by: Jimenez Schaffer C: Ryan Munroe MD; Elsie Hallman MD Technologist: Eneida Doherty RT(R) Trnscb Date/Time: 01/10/2018 (10 37) t.SDR.VTL Orig Print D/T: S: 01/10/2018 (1040) TRICIA 2 Signed Report - Thrmbc/ayses trnslm [id number] 14:14:00 Name: FUNMI MONTERROSO [facility] 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 Images of a collateral vein with direct connection to the central venous system was obtained. Images were submitted to PACS. The vein is patent without thrombus. Under direct sonoguidance, this collateral vein was accessed with a micropuncture needle at 1414 Reported and signed by: Robbi Kamara M.D. Transcribed: 02/14/2018 (0456) [email or web address] Report REASON FOR EXAM: Nonfunctioning left upper extremity AV graft PROCEDURE: 1. AV fistulogram 2. Angioplasty of the arterial inflow 3. Angioplast y of the venous outflow 4. Mechanical thrombectomy of the clots within th e AV graft 5. Intravenous thrombolytic treatment with alteplase Anesthesia: General Anesthesiologist: Dr. Jessica CASSIDY NGS: After informed consent was obtained, the patient was brought to speci al procedures and placed supine on the table. The left arm was prepped was draped in the usual fashion. All elements of maximal sterile barrier stacey hniques were applied. Ultrasound demonstrates complete thrombosis of the left upper extremity AV graft. The arterial inflow of the AV graft is the high brachial artery. The venous outflow of the AV graft. The left axil viviana vein. Under real time ultrasound guidance, a micropuncture needle was used to access the arterial limb of the AV graft. A 6-Cypriot v ascular sheath was inserted. The patient has existing covered stent withi n the venous portion of the AV graft. Angioplasty of the venous limb of the AV graft was performed with 8 mm balloon. Under real-time ultras ound guidance, a micropuncture needle was used to access the venous limb o f the AV graft and a 2nd 6-Cypriot sheath was inserted. A PAGE 1 Signed Report (CONTINUED) Name: FUNMI MONTERROSO [facility] SP : 1955 Age/S: 62 / F [address] Unit #: [id number] Loc: [place] [address] Phys: Elsie Hallman MD Acct: [id number] Dis Date: S tatus: DIS IN PHONE #: [phone] Exam Da te: 01/09/2018 1615 FAX #: [phone] Reason: Report Has Be en Amended EXAMS: CPT CODE : [id number] Thrmbc/nfs trnslm angiop 27804 Fl uoro Time: 144 DAP (Gy m2): 62455 Air Kerma (mGy): 29.49 <Continued> guidewire was advanced past the arterial anastomosis into the left brachial artery. A Eliud balloon was used to remove the arterial plug. Additional angioplasty and mechanical thrombectomy of the AV graft was p erformed with 6 mm balloon. At this time there was good flow through the AV graft with persistent thrombus at the venous anastomosis site in the le ft axillary vein. Attempt to remove the clot was not successful. An infu stefanie catheter was then placed across the clot and alteplase was given Under direct ultrasound guidance, micropuncture needle was used to access a collateral vein in the right neck. The tract was dilated to accept a temporary hemodialysis catheter. The catheter was sutured to the subcutaneous tissue and is ready for use MEDICATIONS: None COMPLICATIONS: None Blood loss: Less than 5 mL Fluoroscopic time: 144 seconds Radiation dose: 29 mGy IMPRESSION: Tempo rary right IJ hemodialysis catheter is ready for use. Successful declot of occluded left upper extremity AV graft. Persistent large clots at t he venous anastomosis with the left axillary vein. Intravenous thrombol ytic treatment was given with alteplase with plan for follow-up venogram the next day at 1037 Reported and signed by: Jimenez Schaffer C: Ryan Munore MD; Elsie Hallman MD Technologist: Eneida Doherty RT(R) Trnscb Date/Time: 01/10/2018 (10 37) FelibertoVTSara Orig Print D/T: S: 01/10/2018 (1040) TRICIA SERRATO 2 Signed Report - CT HEAD/BRAIN W/O [id number] 17:11:00 Name: FUNMI MONTERROSO [facility] : 1955 Age/S: 62 / F [address] [facility] Unit #: [id number] Loc: [place], [place] [address] Phys: Ian Arauz DO Acct: [id number] Dis Date: [id number] Status: DIS IN PHONE #: [phone] Exam Date: 02/06/2018 1419 FAX #: [phone] Reason: CONFUSED EXAMS: CPT CODE: [id number] CT HEAD/BRAIN W/O CONT 46446 EXAM: CT of the head without contrast; INFORMATION: Confusion; status post fall; IMPRESSION: 1. No evidence of intracranial hemorrhage or acute territorial infarction. 2. No change compared with a recent study from February 03, 2018, showing chronic ischemic white matter changes. 3. No evidence of skull fracture. at 1711 Reported and signed by: Albaro Dumont M.D. CC: Ryan Munroe MD; Ian Arauz [facility] Technologist:Rafael Mccracken RT(R),(MR),(CT); CTDI: DLP: Trnscb Date/Time: 02/06/2018 (171) t.[email or web address].GRW Orig Print D/T: S: 02/06/2018 (5936) CTDI: DLP: PAGE 1 Signed Report - XR CHEST 1 [id number] 13:32:00 FAX: Ryan Munroe MD [phone] [place]: St: DIS FAX: Ian Jimenez [phone] FAX: Kemar Chambers MD --------- Name: FUNMI MONTERROSO [facility] : 1955 Age/S: 62/F [address] it #: [id number] Loc: V.3096 [place] [address] Phys: Kemar Franks MD Acct: [id number] Dis Date: [id number] Status: DIS IN ONE #: [phone] Exam Date: 02/05/2018 1235 FAX #: [phone] Reason: POSSIBLE ASPIRATION EXAMS: CPT CODE: [id number] XR CHEST 1 V 68082 EXAMINATION: X RAY CHEST INDICATION: POSSIBLE ASPIRATION TECHNIQUE: Single AP view. COMPARISON: 01/16/2018. FINDINGS: Right subclavian HD catheter, unchanged. No airspace c onsolidation, pleural effusion or pneumothorax. No evidence of pulmonary v ascular congestion. Cardiomediastinal silhouette is unremarkable. Visualized osseous structures are grossly intact. IMPRESS ION: No evidence of acute cardiopulmonary process. at 1332 Reported and s igned by: Ilda Villegas M.D. CC: Ryan Munroe MD; India Arauz DO; Kemar Franks MD Technologist: Pati gorman; MADONNA CALDERÓN RT(R) Trnscrd Date/Time/By: 02/05/2018 (9739) : By: FelibertoCJP3 Orig Print D/T: S: 02/05/2018 (5925) PAGE 1 Signed Report - XR SWLW FUNC W/C V 2018-02-03 13:59:00 FAX: Ryan Munroe MD [phone] [place]: B St: DIS FAX: Ian Jimenez [phone] Name: FUNMI MONTERROSO [facility] : 1955 Age/S: 62/F [address] Unit #: [id number] Loc: V.30[address] [place] [address] Phys: Ian Arauz DO Acct: [id number] Dis Date: [id number] Status: DIS IN PHONE #: [phone] Exam Date: 02/03/2018 1352 FAX #: [phone] Reason: ASSESS SWALLOW EXAMS: CPT CODE: [id number] XR EDWIN ROBINS W/C V 90028 REASON FOR EXAM: ASSESS SWALLOW EXAM ORDER DATE: 02/03/2018 11:24 AM Attending Jimenez: Ian Arauz DO PROCEDURE: Barium swallow FINDINGS: The exam was performed to assist the speech pathologist in performing the barium swallow exam. The patient was giving teaspoon, cup, straw of thin liquid,cup of thick liquid , puree and mechanical soft food coated with barium to swallow. Abnormal pulling in the piriform sinus with vallecular residue seen with mechanical soft food code with barium. There is penetration with thin liquid. Fluoroscopic time:69 sec Fluoroscopic dose:10.7 mGy Number of images obtained: 2 IMPRESSION: Please refer to the speech pathologist report at 8169 Reported and signed by: Robbi Kamara M.D. CC: Ryan Munroe MD; Ian Arauz DO Technologist: DONAL TABOR) Trnscrd Date/Time/By: 02/03/2018 (7157) : By: Sloane Orig Print D/T: S: 02/03/2018 (7593) PAGE 1 Signed Report - CT HEAD/BRAIN W/O [id number] 13:19:00 Name: FUNMI MONTERROSO [facility] : 1955 Age/S: 62 / F [address] [facility] Unit #: [id number] Loc: [place] [address] Phys: Ian Arauz DO Acct: [id number] Dis Date: [id number] Status: DIS IN PHONE #: [phone] Exam Date: 02/03/2018 1313 FAX #: [phone] Reason: ams EXAMS: CPT CODE: [id number] CT HEAD/BRAIN W/O CONT 03514 REASON FOR EXAM: ams EXAM ORDER DATE: 02/03/2018 12:09 PM Ordering Jimenez: Ian Arauz DO PROCEDURE: - CT HEAD/BRAIN W/O CONT COMPARISON: 12/27/2017 FINDINGS: CT images of the brain were obtained without IV contrast. Dose reduction techniques were applied. Mild patchy low densities appearance of the paraventricular region noted consistent with nonspecific white matter disease. The hernandes-white matter delineation is unremarkable. The ventricles, cisterns, and sulci are unremarkable. There is no evidence of hemorrhage, mass, mass effect. There is no evidence of acute infarct. The calvarium is intact. IMPRESSION: Chronic right caudate nucleus head infarct. No acute findings at 1319 Reported and signed by: Robbi Kamara M.D. CC: Ryan Munroe MD; Ian Arauz DO Technologist:Rafael Mccracken RT(R),(MR),(CT) CTDI: DLP: Trnscb Date/Time: 02/03/2018 (4863) t.SDR.VTL Orig Print D/T: S: 02/03/2018 (6593) CTDI: DLP: PAGE 1 Signed Report - XR SHOULDER 2 + V [id number] 18:47:00 FAX: Ryan Munroe MD [phone] [place]: B St: DIS FAX: Ian Jimenez [phone] Name: FUNMI MONTERROSO [facility] : 1955 Age/S: 62/F [address] Unit #: [id number] Loc: V.3096 [place] [address] Phys: Ian Arauz DO Acct: [id number] Dis Date: [id number] Status: DIS IN PHONE #: [phone] Exam Date: 01/30/2018 1809 FAX #: [phone] Reason: pain to left shoulder EXAMS: CPT CODE: [id number] XR SHOULDER 2 + [place] [address] REASON FOR EXAM: pain to left shoulder EXAM ORDER DATE: 01/30/2018 12:00 AM Ordering Jimenez: India Arauz DO PROCEDURE: - XR SHOULDER 2 + V LT FINDINGS: 3 views of the left shoulder were obtained. The osseous structures are unremarkable in size and shape. The joint spaces are mainta ined. There is normal alignment of the humeral head. No evidence of frac ture. The acromial clavicular joint is intact IMPRESSION: Unrem arkable left shoulder Electronically Signed by Jimenez Kamara on 01/30 at 1847 Reported and signed by: Robbi Kamara M.D. CC: Ryan Munroe MD; Ian Arauz DO Stacey hnologist: CHAI MONTES DE OCAR) Trnscrd Date/T wilda/By: 01/30/2018 (1846) : By: KristelL Orig Print D/T: S: 8 (794) PAGE 1 Signed Report - XR T-SPINE 3 [id number] 13:48:00 FAX: Ryan Munroe MD [phone] [place]: B St: DIS FAX: Ian Jimenez [phone] Name: FUNMI MONTERROSO [facility] : 1955 Age/S: 62/F [address] Unit #: [id number] Loc: V.3096 [place] [address] Phys: Ian Arauz DO Acct: [id number] Dis Date: [id number] Status: DIS IN PHONE #: [phone] Exam Date: 01/25/2018 1313 FAX #: [phone] Reason: back pain EXAMS: CPT CODE: [id number] XR T-SPINE 3 VIEWS 05069 HISTORY: back pain EXAM: AP, lateral, and swimmers views of the thoracic spine. IMPRESSION: Mi ld mid thoracic compression deformity, which appears chronic. Other thor acic vertebral body heights are preserved. Vertebral body alignment is s atisfactory. Osteopenia. Mild multilevel thoracic disc space loss with m arginal osteophytes. No paraspinal soft tissue contour abnormality. at 1348 Reported and signed by: Leola Begum D.O. CC: Ryan Munroe MD; Ian Arauz DO Technologist: BRYAN SÁNCHEZ RT (R) Trnscrd Date/Time/By: 01/25/2018 (3753) : By: [email or web address] Orig Print D/T: S: 01/25/2018 (5042) PAGE 1 Signed Report - SP FLUORO GUID CTRL ACC [id number] 08:27:00 Name: FUNMI MONTERROSO [facility] SP : 1955 Age/S: 62 / F [address] [facility] Unit #: [id number] Loc: [place] [address] Phys: Elsie Hallman MD Acct: [id number] Dis Date: Status: DIS IN PHONE #: [phone] Exam Date: 01/16/2018 1006 FAX #: [phone] Reason: EXAMS: CPT CODE: [id number] SP FLUORO GUID CTRL ACC DEV 35098 Fluoro Time: 12 DAP (Gy m2): 1334 Air Kerma (mGy): 2.78 EXAM: Insertion of a tunneled hemodialysis catheter with fluoroscopic guidance; conscious sedation; INFORMATION: End- stage renal disease; indwelling temporary hemodialysis catheter; occluded left arm AV graft. TECHNIQUE AND FINDINGS: Conscious sedation start time: 0939 hours; Completion time: 1006 hours; Under physician supervision 1 mg of Versed and 25 mcg fentanyl were administered intravenously for mild conscious sedation. The patient's heart rate, blood pressure and pulse oximetry were continuously monitored by a trained registered nurse. Physician soli-qu-xqus sedation time was 20 minutes. On consent was obtained and the patient was placed supine procedure table. Informed consent was obtained and the patient was placed supine on the procedure table. Conscious sedation was initiated as described above. The patient's skin in the right neck and upper chest r egion was prepped and draped in the usual sterile fashion. The indwelling temporary hemodialysis catheter was removed over a guidewire and was replaced with a 15 Cypriot vascular access sheath under fluoroscopic iesha nce. A subcutaneous tunnel was created in the usual sterile fashion and a tunneled hemodialysis catheter was then inserted under fluoroscopic guidance and positioned with its tip in the cranial aspect of the right at rium. Good blood return was noticed; the catheter was sutured to the skin and flushed with heparinized saline. No complications. IMPRESSION: Successful insertion of a tunneled hemodialysis catheter with fluoroscopic guidance and using conscious sedation. Fluoroscopy time: 12 seconds; CHK: 2.78 mGy; DAP: 1334 mGy-cm 2; at 0827 Repo rted and signed by: Albaro Dumont M.D. PAGE 1 Sig mayuri Report (CONTINUED) Name: FUNMI MONTERROSO [facility] SP : 1955 Age/S: 62 / F [address] Unit #: [id number] Loc: [place] [address] Phys: Elsie Hallman MD Acct: [id number] Dis Date: Status: DIS IN PHONE #: [phone] Exam Date: 01/16/2018 1006 FAX #: [phone] Reason: EXAMS: CPT CODE: [id number] SP FLUORO GUID CTRL ACC DEV 20237 Fluoro Time: 12 DAP (Gy m2): 1334 Air Kerma (mGy): 2.78 < Continued> CC: Ryan Munroe MD; Elsie Hallman MD Technologist: Eneida Doherty RT(R) Trnscb Date/Time: 01/17/2018 (826) [email or web address] Orig Print D/T: S: 01/17/2018 (829) PAGE 2 Signed Report - XR CHEST 1 [id number] 10:53:00 FAX: Ryan Munroe MD [phone] [place]: St: DIS FAX: Y Elsie Hallman MD [phone] Name: FUNMI MONTERROSO [facility] : 1955 Age/S: 62/F [address] Unit #: [id number] Loc: [place] [address] Phys: Albaro Dumont MD Acct: [id number] Dis Date: Status: DIS IN PHONE #: [phone] Exam Date: 01/16/2018 1036 FAX #: [phone] Reason: ESRD; st.p Permcath; EXAMS: CPT CODE: [id number] XR CHEST 1 V 66620 HISTORY: Catheter placement/ESRD. COMPARISON: January 09, 2018. Right permacath with the tip projected over the SVC without pneumothorax. Lung scarring. No acute infiltrates, effusion or congestion. Cardiomegaly. IMPRESSION: No p neumothorax after right jugular catheter placement with the tip projecte d over the SVC. Electronically Signed by Jimenez Flynn on 2017 at 1053 Reported and signed by: Nazario Flynn M.D. CC: Ryan Munroe MD; Elsie Hallman MD Technologist: RAIN ECKERT, RT(R) Trnscrd Date/Time/By: 01/16/2018 (7382) : By: [email or web address] Orig Print D/T: S: 01/16/2018 (1257) PAGE 1 Signed R eport - Dlyss crct trnslm [id number] 13:40:00 Name: FUNMI MONTERROSO [facility]. : 1955 Age/S: 62 / F [address] Unit #: [id number] Loc: [place] [address] Phys: Elsie Hallman MD Acct: [id number] Dis Date: Status: DIS IN PHONE #: [phone] Exam Date: 01/10/2018 1208 FAX #: [phone] Reason: EXAMS: CPT CODE: [id number] Dlyss crct trnslm angiop 03422 Fluoro Time: 120 DAP (Gy m2): Air Kerma (mGy): 50.98 REASON FOR EXAM:Occluded left upper extremity AV graft PROCEDURE: 1. Follow-up left upper extremity AV fistulogram 2. 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 Alvarez FINDINGS: After informed consent was obtained, the patient was brought to special procedures and placed supine on the table. The left arm was prepped was draped in the usual fashion. The patient has an existing vascular sheaths in the arterial limb and venous limb of the AV graft. A Hurst catheter was advanced over the guidewire into the central venous system. 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 This was angioplastied with a 10 mm balloon. Additional mild stenosis at the venous anastomosis was also angioplastied with a 10 mm balloon. At this time, despite brisk flow noted within the AV graft The arterial sheath was removed 1st. At that time, a large hematoma developed at the access site. Manual compression was obtained to obtain hemostasis. While manual compression was applied to the arterial inflow, the AV graft was then occluded accidentally. Due to the presence of the large hematoma, the decision was made to abandon additional intervention. MEDICATIONS: None COMPLICATIONS: None Blood loss: 1 unit of blood Fluoroscopic time: 120 seconds Radiation dose: 50 mGy IMPRESSION: Unsuccessful attempt to declot the left upper extremity AV graft secondary to large hematoma developed. at 1340 Reported and signed by: Robbi Kamara M.D. PAGE 1 Signed Report (CONTINUED) Name: FUNMI MONTERROSO [facility]. SP : 1955 Age/S: 62 / F [address] Unit #: [id number] Loc: [place] [address] Phys: Elsie Hallman MD Acct: [id number] Dis Date: Status: DIS IN PHONE #: [phone] Exam Date: 01/10/2018 1208 FAX #: [phone] Reason: EXAMS: CPT CODE: [id number] Dlyss crct trnslm angiop 28514 Fluoro Time: 120 DAP (Gy m2): Air Kerma (mGy): 50.98 <Continued> CC: Ryan Munroe MD; Elsie Hallman MD Technologist: Eneida Doherty RT(R) Trnscb Date/Time: 01/10/2018 (3401) t.SDR.VTL Orig Print D/T: S: 01/10/2018 (7003) PAGE 2 Signed Report - REM/CL CATH CESS THROMB 2018-01-10 13:40:00 Name: FUNMI MONTERROSO [facility] SP : 1955 Age/S: 62 / F [address] Unit #: [id number] Loc: [place] [address] Phys: Elsie Hallman MD Acct: [id number] Dis Date: Status: DIS IN PHONE #: [phone] Exam Date: 01/10/2018 1208 FAX #: [phone] Reason: EXAMS: CPT CODE: [id number] REM/CL CATH CESS THROMB 36343 Fluoro Time: 120 DAP (Gy m2): Air Kerma (mGy): 50.98 REASON FOR EXAM:Occluded left upper extremity AV graft PROCEDURE: 1. Follow-up left upper extremity AV fistulogram 2. Angioplasty of high- grade stenosis of the junction of the left subclavian vein and brachiocephalic vein Anesthesia: General Anesthesiologist: Dr. Alvarez FINDINGS: After informed consent was obtained, the patient was brought to special procedures and placed supine on the table. The left arm was prepped was draped in the usual fashion. The patient has an existing vascular sheaths in the arterial limb and venous limb of the AV graft. A Hurst catheter was advanced over the guidewire into the central venous system. 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 This was angioplastied with a 10 mm balloon. Additional mild stenosis at the venous anastomosis was also angioplastied with a 10 mm balloon. At this time, despite brisk flow noted within the AV graft The arterial sheath was removed 1st. At that time, a large hematoma developed at the access site. Manual compression was obtained to obtain hemostasis. While manual compression was applied to the arterial inflow, the AV graft was then occluded accidentally. Due to the presence of the large hematoma, the decision was made to abandon additional intervention. MEDICATIONS: None COMPLICATIONS: None Blood loss: 1 unit of blood Fluoroscopic time: 120 seconds Radiation dose: 50 mGy IMPRESSION: Unsuccessful at tempt to declot the left upper extremity AV graft secondary to large hem atoma developed. at 0289 Reported and signed by: Robbi Kamara M.D. P AGE 1 Signed Report (CONTINUED) Name: FUNMI MONTERROSO [facility] SP : 11/1954 Age/S: 62 / F [address] [facility] Unit #: [id number] Loc: [place] [address] Phys: Elsie Hlalman MD Acct: [id number] Dis Date : Status: DIS IN PHONE #: Exam Date: 01/10/2018 1204 FAX #: [phone] Reason: EXAMS: CPT CODE: [id number] REM/CL CATH CESS THROMB 78821 Fluoro Time: 120 DAP (Gy m2): Air Kerma (mGy): 50.98 <Continued> CC: Ryan Munroe MD; Elsie Hallman MD Technologist: Eneida Doherty RT(R) Trnscb Date/Time: 01/10/2018 (2010) [email or web address] Orig Print D/T: S: 01/10/2018 (9769) PAGE 2 Signed Report - XR CHEST 1 [id number] 17:20:00 FAX: Ryan Munroe MD [phone] [place]: B St: DIS FAX: Elsie Galan MD [phone] Name: FUNMI MONTERROSO [facility] : 1955 Age/S: 62/F [address] Unit #: [id number] Loc: [place] [address] Phys: Robbi Kamara MD Acct: [id number] Dis Date: Status: DIS IN PHONE #: [phone] Exam Date: 01/09/2018 1650 FAX #: [phone] Reason: TEMP HD CATH PLACEMENT EXAMS: CPT CODE: [id number] XR CHEST 1 V 91868 CLINICAL HISTORY: TEMP HD CATH PLACEMENT; end-stage renal disease TECHNIQUE: AP chest x-ray COMPARISON: 12/27/17 IMPRESSION: Interval placement of right IJ hemodialysis catheter with distal tip in the SVC. No pneumothorax or other signi ficant change compared to the previous study. at 1720 Reported and signed by: Leola Begum D.O. CC: Ryan Munroe; Elsie Hallman MD Technologist: DINORA MORAELS; CHAI WoodsonR Trnscrd Date/Time/By: 01/09/2018 (1720) : By: Ty DP1 Orig Print D/T: S: 01/09/2018 (3817) PAGE 1 Signed Report - XR CHEST 1 [id number] 13:37:00 FAX: Lisa Snow MD [phone] [place]: B St: DIS Name: FUNMI DA SILVA [facility] : [birth year] Age/S: 62/F [address] Unit #: [id number] Loc: [place] [address] Phys: Lisa Snow MD Acct: [id number] Dis Date: Status: DIS IN PHONE #: [phone] Exam Date: 12/27/2017 1300 FAX #: [phone] Reason: Altered Mental Status EXAMS: CPT CODE: [id number] XR CHEST 1 V 04466 HISTORY: Altered Mental Status TECHNIQUE: AP chest x-ray COMPARISON: 05/18/16 FINDINGS: No airspace consolidation or pleural effusion. Normal heart size. Atherosclerotic vascular calcification of the thoracic aorta. Left brachiocephalic basilar stent. Sternotomy wires. Thoracic spondyl osis. IMPRESSION: No radiographic evidence of acute cardiopulmonary process. at 0675 Reported and signed by: Leola Adamson am, D.O. CC: Lisa Snow MD Technologist: RT FALGUNI(R) Trnscrd Date/Time/By: 12/27/2017 (2269) : By: [email or web address] Orig Print D/ T: S: 12/27/2017 (1954) PAGE 1 Si gned Report - XR SHOULDER 2 + V [id number] 13:36:00 FAX: Lisa Snow MD [phone] [place]: B St: DIS Name: FUNMI DA SILVA [facility] : [birth year] Age/S: 62/F [address] Unit #: [id number] Loc: [place] [address] Phys: Lisa Snow MD Acct: [id number] Dis Date: Status: DIS IN PHONE #: [phone] Exam Date: 12/27/2017 1305 FAX #: [phone] Reason: PAIN, TRAUMA EXAMS: CPT CODE: [id number] XR SHOULDER 2 + V RT 52348 HISTORY: PAIN, TRAUMA TECHNIQUE: Internal/external rotation AP and scapular Y-views of the right shoulder. FINDINGS: No acute fracture. Glenohumeral and acrom ioclavicular joints are not dislocated. Articulating surfaces appear prese rved. Regional soft tissues are unremarkable. IMPRESSION: No acute fracture or dislocation of the right shoulder. Electronical ly Signed by Leola Begum D.O. on 12/27/2017 at 1801 Report ed and signed by: Leola Begum D.O. CC: Lisa Snow MD Technologist: RAIN ECKERT RT (R) Trnscrd Date/Time/By: 12/27/2017 (6662) : By: Sebastian [email or web address] Orig Print D/T: S: 12/27/2017 (4750) TRICIA SERRATO 1 Signed Report - XR FOREARM 2 VIEWS [id number] 13:35:00 FAX: Lisa Snow MD [phone] [place]: B St: DIS Name: FUNMI DA SILVA [facility] : [birth year] Age/S: 62/F [address] Unit #: [id number] Loc: [place] [address] Phys: Lisa Snow MD Acct: [id number] Dis Date: Status: DIS IN PHONE #: [phone] Exam Date: 12/27/2017 1310 FAX #: [phone] Reason: PAIN, TRAUMA EXAMS: CPT CODE: [id number] XR [place] [address] [place] [address] CLINICAL HISTORY: PAIN, TRAUMA TECHNIQUE: AP and lateral views of the right forearm CO MPARISON: None FINDINGS: No acute fracture. Bony tra becular pattern is unremarkable. No cortical destruction or periosteal patito ction. Elbow and wrist joints do not appear dislocated. Regional soft tiss ues are unremarkable. IMPRESSION: No a cute fracture or dislocation of the right forearm. Electronically S igned by Leola Begum D.O. on 12/27/2017 at 133 Reported a nd signed by: Leola Begum D.O. CC: Lsia Snow MD Technologist: RT FALGUNI(R) Trnscrd Date/Time/By: 12/27/2017 (9244) : By: [email or web address] Orig Print D/T: S: 12/27/2017 (6324) PAGE 1 Signed Report - CT C-SPINE W/O [id number] 12:47:00 Name: FUNMI MONTERROSO [facility] : 1955 Age/S: 62 / F [address] [facility] Unit #: [id number] Loc: [place] [address] Phys: Lisa Snow MD Acct: [id number] Dis Date: Status: DIS IN PHONE #: [phone] Exam Date: 12/27/2017 1218 FAX #: [phone] Reason: PAIN, TRAUMA EXAMS: CPT CODE: [id number] CT C-SPINE W/O CONTRAST 14249 HISTORY: PAIN, TRAUMA TECHNIQUE: 2.[address] of the cervical spine. Sagittal and coronal reformatted images were generated. Automated exposure control for dose reduction. COMPARISON: None FINDINGS: No acute fracture or subluxation. Craniocervical and cervicothoracic articulations are appropriate. Vertebral body alignment is satisfactory. Vertebral body heights are preserved. Moderate disc space loss with marginal osteophytes and uncovertebral arthrosis at C5-C6 and C6-C7; associated mild-moderate foraminal stenosis. No prevertebral or paraspinal soft tissue abnormality. Atherosclerotic vascular calcification of the carotid bifurcations. Lung apices are clear. IMPRESSION: No acute fracture or subluxation of the cervical spine. at 1247 Reported and signed by: Leola Begum D.O. CC: Lisa Snow MD Technologist: Rafael Mccracken RT(R),(MR),(CT) CTDI: DLP: Trnscb Date/Time: 12/27 (1247) t.[email or web address] Orig Print D/T: S: 12/27/2017 (125 0) CTDI: DLP: PAGE 1 Signed Repor t - CT HEAD/BRAIN W/O [id number] 12:24:00 Name: FUNMI MONTERROSO [facility] : 1955 Age/S: 62 / F [address] [facility] Unit #: [id number] Loc: [place] [address] Phys: Namrata Snow MD Acct: [id number] Di s Date: Status: DIS IN PHONE #: [phone] Exam Date: 12/27/2017 1218 FAX #: [phone] Reason: Altered Mental Status EXAMS: CPT CODE: [id number] CT HEAD/BRAIN W/O CONT 31424 HISTORY: Altered Mental Status TECHNIQUE: Noncontrast 2.[address] of the head. Examina tion acquired within 24 hours of arrival. Automated exposure control for dose reduction; DLP: 828 mGy-cm. COMPARISON: 05/15/16 FINDINGS: No acute hemorrhage. No intracranial mass, mass effect, or midline shift. No CT evidence of acute infarct. 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 Mild periventricular chronic microvascular is chemic changes. Mild parenchymal atrophy. No hydrocephalus. No extra-axial fluid collection. Atherosclerotic vascular calcification of the int ernal carotid and vertebral arteries. Visualized paranasal sinuse s are clear. Mastoid air cells and middle ear cavities are clear. Orbital contents are unremarkable. Calvarium and skull base are intact. Large post erior scalp hematoma. IMPRESSION: No a cute intracranial process. No calvarial fracture. Large posterior scalp hematoma. at 1224 Reported and signed by: Leola shaffer D.O. CC: Lisa Snow MD echnologist:Rafael Mccracken RT(R),(MR),(CT) CTDI: DLP: Trnscb Date /Time: 12/27/2017 (1224) [email or web address] Orig Print D/T: S: 11/2017 (3451) CTDI: DLP: PAGE 1 Signed Report TACROLIMUS [id number] 14:11:00 * Test Item Value Reference Range Comments TACROLIMUS BLOOD (BEAKER) (test mqqb=630) 10.3 ng/mL 10.0-20.0 BASIC METABOLIC [id number] 10:59:00* Test Item Value Reference Range Comments SODIUM (BEAKER) (test dnlr=015) 136 meq/L 136-145 POTASSIUM (BEAKER) (test yblx=987) 5.3 meq/L 3.5-5.1 CHLORIDE (BEAKER) (test eeea=826) 94 meq/L 98-107 CO2 (BEAKER) (test tqgq=500) 28 meq/L 22-29 BLOOD UREA NITROGEN (BEAKER) (test zsos=717) 71 mg/dL 7-21 CREATININE (BEAKER) (test amrz=867) 5.66 mg/dL 0.57-1.25 GLUCOSE RANDOM (BEAKER) (test ypuj=290) 300 mg/dL 70-105 CALCIUM (BEAKER) (test ldjw=870) 9.0 mg/dL 8.4-10.2 EGFR (BEAKER) (test znpf=0199) 8 mL/min/1.73 sq m ESTIMATED GFR IS NOT ACCURATE CREATININE CLEARANCE IN PREDICTING GLOMERULAR FILTRATION RATE. ESTIMATED GFR IS NOT APPLICABLE FOR DIALYSIS PATIENTS. CBC W/PLT COUNT & AUTO [id number] 10:16:00* Test Item Value Reference Range Comments WHITE BLOOD CELL COUNT (BEAKER) (test inxv=703) 6.0 K/ L 3.5-10.5 RED BLOOD CELL COUNT (BEAKER) (test tncp=072) 4.19 M/ L 3.93-5.22 HEMOGLOBIN (BEAKER) (test jtht=181) 13.8 GM/DL 11.2-15.7 HEMATOCRIT (BEAKER) (test guen=971) 43.7 % 34.1-44.9 MEAN CORPUSCULAR VOLUME (BEAKER) (test dpoz=715) 104.3 fL 79.4-94.8 MEAN CORPUSCULAR HEMOGLOBIN (BEAKER) (test rpgd=958) 32.9 pg 25.6-32.2 MEAN CORPUSCULAR HEMOGLOBIN CONC (BEAKER) (test stfe=026) 31.6 GM/DL 32.2-35.5 RED CELL DISTRIBUTION WIDTH (BEAKER) (test ktnr=264) 14.4 % 11.7-14.4 PLATELET COUNT (BEAKER) (test szmn=429) 239 K/CU MM 150-450 MEAN PLATELET VOLUME (BEAKER) (test mjra=483) 8.8 fL 9.4-12.3 NUCLEATED RED BLOOD CELLS (BEAKER) (test vrgx=628) 0 /100 WBC 0-0 NEUTROPHILS RELATIVE PERCENT (BEAKER) (test zbco=850) 60 % LYMPHOCYTES RELATIVE PERCENT (BEAKER) (test okxp=498) 30 % MONOCYTES RELATIVE PERCENT (BEAKER) (test vswf=162) 8 % EOSINOPHILS RELATIVE PERCENT (BEAKER) (test zext=930) 1 % BASOPHILS RELATIVE PERCENT (BEAKER) (test uvwy=273) 1 % NEUTROPHILS ABSOLUTE COUNT (BEAKER) (test gizh=077) 3.60 K/ L 1.56-6.13 LYMPHOCYTES ABSOLUTE COUNT (BEAKER) (test nfaz=091) 1.81 K/ L 1.18-3.74 MONOCYTES ABSOLUTE COUNT (BEAKER) (test qnka=236) 0.49 K/ L 0.24-0.36 EOSINOPHILS ABSOLUTE COUNT (BEAKER) (test aevu=921) 0.05 K/ L 0.04-0.36 BASOPHILS ABSOLUTE COUNT (BEAKER) (test cusm=516) 0.04 K/ L 0.01-0.08 IMMATURE GRANULOCYTES-RELATIVE PERCENT (BEAKER) (test eorv=3835) 0 % 0-1 TACROLIMUS [id number] 14:47:00* Test Item Value Reference Range Comments TACROLIMUS BLOOD (BEAKER) (test cdhk=653) 4.9 ng/mL 10.0-20.0 CBC W/PLT COUNT & AUTO [id number] 11:47:00* Test Item Value Reference Range Comments WHITE BLOOD CELL COUNT (BEAKER) (test pclz=766) 5.3 K/ L 3.5-10.5 RED BLOOD CELL COUNT (BEAKER) (test aswz=302) 2.66 M/ L 3.93-5.22 HEMOGLOBIN (BEAKER) (test xuyc=667) 8.7 GM/DL 11.2-15.7 HEMATOCRIT (BEAKER) (test dxtd=583) 28.9 % 34.1-44.9 MEAN CORPUSCULAR VOLUME (BEAKER) (test pphz=339) 108.6 fL 79.4-94.8 MEAN CORPUSCULAR HEMOGLOBIN (BEAKER) (test xriw=418) 32.7 pg 25.6-32.2 MEAN CORPUSCULAR HEMOGLOBIN CONC (BEAKER) (test mcce=128) 30.1 GM/DL 32.2-35.5 RED CELL DISTRIBUTION WIDTH (BEAKER) (test ywot=276) 21.2 % 11.7-14.4 PLATELET COUNT (BEAKER) (test xtij=483) 261 K/CU MM 150-450 MEAN PLATELET VOLUME (BEAKER) (test wonm=249) 8.6 fL 9.4-12.3 NUCLEATED RED BLOOD CELLS (BEAKER) (test zovp=097) 0 /100 WBC 0-0 NEUTROPHILS RELATIVE PERCENT (BEAKER) (test pngt=491) 63 % LYMPHOCYTES RELATIVE PERCENT (BEAKER) (test vfdd=735) 28 % MONOCYTES RELATIVE PERCENT (BEAKER) (test ervo=017) 7 % EOSINOPHILS RELATIVE PERCENT (BEAKER) (test vwfn=796) 0 % BASOPHILS RELATIVE PERCENT (BEAKER) (test mfsx=186) 0 % NEUTROPHILS ABSOLUTE COUNT (BEAKER) (test oezd=991) 3.35 K/ L 1.56-6.13 LYMPHOCYTES ABSOLUTE COUNT (BEAKER) (test zyej=682) 1.49 K/ L 1.18-3.74 MONOCYTES ABSOLUTE COUNT (BEAKER) (test obih=859) 0.39 K/ L 0.24-0.36 EOSINOPHILS ABSOLUTE COUNT (BEAKER) (test eetr=457) 0.02 K/ L 0.04-0.36 BASOPHILS ABSOLUTE COUNT (BEAKER) (test jfwi=238) 0.02 K/ L 0.01-0.08 IMMATURE GRANULOCYTES-RELATIVE PERCENT (BEAKER) (test eabh=5268) 1 % 0-1 BASIC METABOLIC [id number] 11:46:00* Test Item Value Reference Range Comments SODIUM (BEAKER) (test qqzw=271) 140 meq/L 136-145 POTASSIUM (BEAKER) (test kyxa=069) 5.2 meq/L 3.5-5.1 CHLORIDE (BEAKER) (test wpde=692) 98 meq/L 98-107 CO2 (BEAKER) (test kzsp=685) 26 meq/L 22-29 BLOOD UREA NITROGEN (BEAKER) (test kapi=747) 81 mg/dL 7-21 CREATININE (BEAKER) (test ezgz=855) 4.95 mg/dL 0.57-1.25 GLUCOSE RANDOM (BEAKER) (test ahxz=813) 150 mg/dL 70-105 CALCIUM (BEAKER) (test scho=342) 9.3 mg/dL 8.4-10.2 EGFR (BEAKER) (test djgf=9244) 9 mL/min/1.73 sq m ESTIMATED GFR IS NOT ACCURATE CREATININE CLEARANCE IN PREDICTING GLOMERULAR FILTRATION RATE. ESTIMATED GFR IS NOT APPLICABLE FOR DIALYSIS PATIENTS. POCT-GLUCOSE [id number] 12:26:00* Test Item Value Reference Range Comments POC-GLUCOSE METER (BEAKER) (test scbo=8704) 128 mg/dL 70-110 TESTED AT [facility] [address] [facility] [id number] POCT-GLUCOSE [id number] 12:26:00* Test Item Value Reference Range Comments POC-GLUCOSE METER (BEAKER) (test ktcp=7657) 120 mg/dL 70-110 TESTED AT [facility] [address] [facility] [address] [place] [id number] 11:54:00* Test Item Value Reference Range Comments TACROLIMUS BLOOD (BEAKER) (test ateu=422) 5.8 ng/mL 10.0-20.0 BASIC METABOLIC [id number] 09:38:00* Test Item Value Reference Range Comments SODIUM (BEAKER) (test jvmi=215) 132 meq/L 136-145 POTASSIUM (BEAKER) (test enme=006) 4.2 meq/L 3.5-5.1 CHLORIDE (BEAKER) (test qisj=124) 96 meq/L 98-107 CO2 (BEAKER) (test eyur=638) 23 meq/L 22-29 BLOOD UREA NITROGEN (BEAKER) (test irwz=022) 48 mg/dL 7-21 CREATININE (BEAKER) (test zjyp=302) 4.44 mg/dL 0.57-1.25 GLUCOSE RANDOM (BEAKER) (test dsob=026) 107 mg/dL 70-105 CALCIUM (BEAKER) (test ajhn=155) 8.5 mg/dL 8.4-10.2 EGFR (BEAKER) (test qmst=4404) 10 mL/min/1.73 sq m ESTIMATED GFR IS NOT ACCURATE CREATININE CLEARANCE IN PREDICTING GLOMERULAR FILTRATION RATE. ESTIMATED GFR IS NOT APPLICABLE FOR DIALYSIS PATIENTS. [id number] 09:26:00* Test Item Value Reference Range Comments PHOSPHORUS (BEAKER) (test xhpj=274) 3.6 mg/dL 2.3-4.7 [id number] 09:26:00* Test Item Value Reference Range Comments MAGNESIUM (BEAKER) (test qvzg=818) 1.8 mg/dL 1.6-2.6 RAD, CHEST, 1 VIEW, NON [id number] 08:21:00Referring: Dr. Lazarus Medeiros for exam:->pulmonary congestionShould this be performed at the bedside?->YesFINAL REPORT Chest one view AP 10/12/2017 8:20 AM CLINICAL INDICATION: pulmonary congestion COMPARISON: 10/11/2017 IMPRESSION: Support hardware is unchanged in position. Cardiomediastinal contours are stable. There is central pulmonary vasculature congestion without remarkable peripheral edema. There is bibasilar subsegmental atelectasis. Signed: Sivan Lacey Verified Date/Time: 10/12/2017 08:21:18 Reading Location: [facility] Radiology Reading Room W/PLT COUNT & AUTO [id number] 07:14:00* Test Item Value Reference Range Comments WHITE BLOOD CELL COUNT (BEAKER) (test gehd=405) 5.8 K/ L 3.5-10.5 RED BLOOD CELL COUNT (BEAKER) (test qlsd=782) 2.26 M/ L 3.93-5.22 HEMOGLOBIN (BEAKER) (test wcch=364) 7.1 GM/DL 11.2-15.7 HEMATOCRIT (BEAKER) (test hcfm=293) 22.7 % 34.1-44.9 MEAN CORPUSCULAR VOLUME (BEAKER) (test glfz=585) 100.4 fL 79.4-94.8 MEAN CORPUSCULAR HEMOGLOBIN (BEAKER) (test phqu=769) 31.4 pg 25.6-32.2 MEAN CORPUSCULAR HEMOGLOBIN CONC (BEAKER) (test cxvo=547) 31.3 GM/DL 32.2-35.5 RED CELL DISTRIBUTION WIDTH (BEAKER) (test hjlo=904) 15.7 % 11.7-14.4 PLATELET COUNT (BEAKER) (test xiwo=523) 242 K/CU MM 150-450 MEAN PLATELET VOLUME (BEAKER) (test bezj=931) 9.0 fL 9.4-12.3 NUCLEATED RED BLOOD CELLS (BEAKER) (test iprn=961) 0 /100 WBC 0-0 NEUTROPHILS RELATIVE PERCENT (BEAKER) (test ykox=622) 44 % LYMPHOCYTES RELATIVE PERCENT (BEAKER) (test llyd=213) 41 % MONOCYTES RELATIVE PERCENT (BEAKER) (test gnrx=740) 13 % EOSINOPHILS RELATIVE PERCENT (BEAKER) (test vsnm=445) 2 % BASOPHILS RELATIVE PERCENT (BEAKER) (test wtjb=880) 1 % NEUTROPHILS ABSOLUTE COUNT (BEAKER) (test yrus=128) 2.53 K/ L 1.56-6.13 LYMPHOCYTES ABSOLUTE COUNT (BEAKER) (test aokv=046) 2.39 K/ L 1.18-3.74 MONOCYTES ABSOLUTE COUNT (BEAKER) (test gtvh=360) 0.73 K/ L 0.24-0.36 EOSINOPHILS ABSOLUTE COUNT (BEAKER) (test ugwt=156) 0.10 K/ L 0.04-0.36 BASOPHILS ABSOLUTE COUNT (BEAKER) (test cbca=770) 0.03 K/ L 0.01-0.08 IMMATURE GRANULOCYTES-RELATIVE PERCENT (BEAKER) (test xavm=2616) 1 % 0-1 POCT-GLUCOSE [id number] 06:59:00* Test Item Value Reference Range Comments POC-GLUCOSE METER (BEAKER) (test hybs=6714) 153 mg/dL 70-110 TESTED AT [facility] [address] [facility] [address] PT/[id number] 06:58:00* Test Item Value Reference Range Comments PROTIME (BEAKER) (test gbrb=760) 13.6 seconds 11.7-14.7 INR (BEAKER) (test cvvs=110) 1.0 <=5.9 PARTIAL THROMBOPLASTIN TIME (BEAKER) (test gkyi=565) 31.2 seconds 22.5-36.0 RECOMMENDED COUMADIN/WARFARIN INR THERAPY RANGESSTANDARD DOSE: 2.0 - 3.0 Inclu linette: PROPHYLAXIS for venous thrombosis, systemic embolization; TREATMENT for kimmy ous thrombosis and/or pulmonary embolus.HIGH RISK: Target INR is 2.5-3.5 for pat ients with mechanical heart valves.POCT-GLUCOSE [id number] 16:53:00* Test Item Value Reference Range Comments POC-GLUCOSE METER (BEAKER) (test hxyq=9301) 205 mg/dL 70-110 TESTED AT [facility] [address] [facility] [address] CBC W/PLT COUNT & AUTO [id number] 15:10:00* Test Item Value Reference Range Comments WHITE BLOOD CELL COUNT (BEAKER) (test kyix=744) 4.7 K/ L 3.5-10.5 RED BLOOD CELL COUNT (BEAKER) (test ehdm=114) 2.22 M/ L 3.93-5.22 HEMOGLOBIN (BEAKER) (test khtu=838) 7.1 GM/DL 11.2-15.7 HEMATOCRIT (BEAKER) (test rhfz=998) 22.4 % 34.1-44.9 MEAN CORPUSCULAR VOLUME (BEAKER) (test eqpe=458) 100.9 fL 79.4-94.8 MEAN CORPUSCULAR HEMOGLOBIN (BEAKER) (test yjcw=721) 32.0 pg 25.6-32.2 MEAN CORPUSCULAR HEMOGLOBIN CONC (BEAKER) (test fsxh=271) 31.7 GM/DL 32.2-35.5 RED CELL DISTRIBUTION WIDTH (BEAKER) (test tqqv=225) 15.7 % 11.7-14.4 PLATELET COUNT (BEAKER) (test sety=806) 230 K/CU MM 150-450 MEAN PLATELET VOLUME (BEAKER) (test yetk=720) 9.1 fL 9.4-12.3 NUCLEATED RED BLOOD CELLS (BEAKER) (test vlzn=356) 0 /100 WBC 0-0 NEUTROPHILS RELATIVE PERCENT (BEAKER) (test sxep=853) 35 % LYMPHOCYTES RELATIVE PERCENT (BEAKER) (test xvqn=561) 46 % MONOCYTES RELATIVE PERCENT (BEAKER) (test qkcn=143) 16 % EOSINOPHILS RELATIVE PERCENT (BEAKER) (test srew=251) 2 % BASOPHILS RELATIVE PERCENT (BEAKER) (test dtmb=609) 0 % NEUTROPHILS ABSOLUTE COUNT (BEAKER) (test vkvu=394) 1.65 K/ L 1.56-6.13 LYMPHOCYTES ABSOLUTE COUNT (BEAKER) (test ujex=646) 2.14 K/ L 1.18-3.74 MONOCYTES ABSOLUTE COUNT (BEAKER) (test mxpk=459) 0.73 K/ L 0.24-0.36 EOSINOPHILS ABSOLUTE COUNT (BEAKER) (test nqat=155) 0.11 K/ L 0.04-0.36 BASOPHILS ABSOLUTE COUNT (BEAKER) (test bkoj=063) 0.02 K/ L 0.01-0.08 IMMATURE GRANULOCYTES-RELATIVE PERCENT (BEAKER) (test heut=9971) 1 % 0-1 (MANUAL DIFFERENTIAL)2017-10-11 15:10:00* Test Item Value Reference Range Comments TOTAL COUNTED (BEAKER) (test nyis=0500) WBC MORPHOLOGY (BEAKER) (test vweh=853) Normal PLT MORPHOLOGY (BEAKER) (test nugu=879) Normal RBC MORPHOLOGY (BEAKER) (test slim=758) Normal FUNGUS CULTURE + [id number] 14:12:00* Test Item Value Reference Range Comments CULTURE (BEAKER) (test tiss=1625) 2 out of 3 media Aspergillus terreus FUNGUS SMEAR (BEAKER) (test ptrr=5086) No fungi seen POCT-GLUCOSE [id number] 11:33:00* Test Item Value Reference Range Comments POC-GLUCOSE METER (BEAKER) (test vovi=9404) 141 mg/dL 70-110 TESTED AT [facility] [address] [facility] [address] TACROLIMUS [id number] 10:35:00* Test Item Value Reference Range Comments TACROLIMUS BLOOD (BEAKER) (test vsrv=304) 6.6 ng/mL 10.0-20.0 BASIC METABOLIC [id number] 08:50:00* Test Item Value Reference Range Comments SODIUM (BEAKER) (test lobq=725) 135 meq/L 136-145 POTASSIUM (BEAKER) (test sptg=979) 4.2 meq/L 3.5-5.1 CHLORIDE (BEAKER) (test ixgj=892) 99 meq/L 98-107 CO2 (BEAKER) (test mkyf=734) 27 meq/L 22-29 BLOOD UREA NITROGEN (BEAKER) (test sdri=968) 30 mg/dL 7-21 CREATININE (BEAKER) (test qiij=710) 2.82 mg/dL 0.57-1.25 GLUCOSE RANDOM (BEAKER) (test nvke=858) 103 mg/dL 70-105 CALCIUM (BEAKER) (test loen=080) 8.3 mg/dL 8.4-10.2 EGFR (BEAKER) (test qnni=3225) 17 mL/min/1.73 sq m ESTIMATED GFR IS NOT ACCURATE CREATININE CLEARANCE IN PREDICTING GLOMERULAR FILTRATION RATE. ESTIMATED GFR IS NOT APPLICABLE FOR DIALYSIS PATIENTS. RAD, CHEST, 1 VIEW, NON [id number] 08:43:00Referring: Dr. Lazarus Medieros for exam:->pulmonary congestionShould this be performed at the bedside?->YesFINAL REPORT Chest one view AP 10/11/2017 8:42 AM CLINICAL INDICATION: pulmonary congestion COMPARISON: 10/10/2017 IMPRESSION: Cardiomediastinal contours are stable. There is central pulmonary vasculature congestion without remarkable peripheral edema. Blunting of the costophrenic angles may reflect trace pleural effusions and/or chronic pleural thickening. The lungs are otherwise well aerated. Signed: Sivan Laceyeport Verified Date/Time: 10/11/2017 08:43:01 Reading Location: [facility] Radiology Reading Room [id number] 07:52:00* Test Item Value Reference Range Comments PHOSPHORUS (BEAKER) (test vbno=610) 2.7 mg/dL 2.3-4.7 [id number] 07:52:00* Test Item Value Reference Range Comments MAGNESIUM (BEAKER) (test hgal=030) 1.7 mg/dL 1.6-2.6 POCT-GLUCOSE [id number] 07:42:00* Test Item Value Reference Range Comments POC-GLUCOSE METER (BEAKER) (test bccp=1309) 111 mg/dL 70-110 TESTED AT [place] [id number] [facility] [address] PROTHROMBIN [id number] 05:40:00* Test Item Value Reference Range Comments PROTIME (BEAKER) (test zduu=327) 13.8 seconds 11.7-14.7 INR (BEAKER) (test oirv=924) 1.1 <=5.9 RECOMMENDED COUMADIN/WARFARIN INR THERAPY RANGESSTANDARD DOSE: 2.0 - 3.0 Inclu linette: PROPHYLAXIS for venous thrombosis, systemic embolization; TREATMENT for kimmy ous thrombosis and/or pulmonary embolus.HIGH RISK: Target INR is 2.5-3.5 for pat ients with mechanical heart valves.PT/[id number] 05:40:00* Test Item Value Reference Range Comments PROTIME (BEAKER) (test wkdw=404) 13.8 seconds 11.7-14.7 INR (BEAKER) (test ktov=655) 1.1 <=5.9 PARTIAL THROMBOPLASTIN TIME (BEAKER) (test lbfc=611) 30.9 seconds 22.5-36.0 RECOMMENDED COUMADIN/WARFARIN INR THERAPY RANGESSTANDARD DOSE: 2.0 - 3.0 Inclu linette: PROPHYLAXIS for venous thrombosis, systemic embolization; TREATMENT for kimmy ous thrombosis and/or pulmonary embolus.HIGH RISK: Target INR is 2.5-3.5 for pat ients with mechanical heart valves.POCT-GLUCOSE [id number] 21:38:00* Test Item Value Reference Range Comments POC-GLUCOSE METER (BEAKER) (test lwtk=0978) 184 mg/dL 70-110 TESTED AT [place] [id number] [facility] [address] POCT-GLUCOSE [id number] 17:16:00* Test Item Value Reference Range Comments POC-GLUCOSE METER (BEAKER) (test uqby=1938) 221 mg/dL 70-110 TESTED AT [place] [id number] [facility] [address] RAD, CHEST, 1 VIEW, NON [id number] 15:56:00Referring: Dr. Lazarus Medeiros for exam:->pulmonary congestionShould this be performed at the bedside?->YesFINAL REPORT Chest one view AP 10/10/2017 3:56 PM CLINICAL INDICATION: pulmonary congestion COMPARISON: 10/09/2017 IMPRESSION: Cardiomediastinal contours are stable. There is central pulmonary vasculature congestion without remarkable peripheral edema. There are trace bilateral pleural effusions. The lungs are otherwise clear. Signed: Sivan Lacey Verified Date/Time: 10/10/2017 15:56:37 Reading Location: [facility] B1 C013W Consult Reading Room [id number] 15:40:00* Test Item Value Reference Range Comments FERRITIN (BEAKER) (test pdyl=484) 2367 ng/mL 5-275 POCT-GLUCOSE [id number] 12:27:00* Test Item Value Reference Range Comments POC-GLUCOSE METER (BEAKER) (test mfzr=5764) 203 mg/dL 70-110 TESTED AT [address] [address] IRON, TIBC, % SAT. (WITHOUT FERRITIN)2017-10-10 11:28:00* Test Item Value Reference Range Comments IRON (BEAKER) (test lgpo=967) 50 ug/dL 40-160 TOTAL IRON BINDING CAPACITY (BEAKER) (test rlxj=846) 159 ug/dL 250-450 IRON % SATURATION (2) (BEAKER) (test ooun=6626) 31 % 20-55 [id number] 11:28:00* Test Item Value Reference Range Comments MAGNESIUM (BEAKER) (test aivr=807) 2.0 mg/dL 1.6-2.6 TACROLIMUS [id number] 10:22:00* Test Item Value Reference Range Comments TACROLIMUS BLOOD (BEAKER) (test pina=472) 5.8 ng/mL 10.0-20.0 BASIC METABOLIC [id number] 10:09:00* Test Item Value Reference Range Comments SODIUM (BEAKER) (test hlzc=605) 133 meq/L 136-145 POTASSIUM (BEAKER) (test uhux=788) 5.2 meq/L 3.5-5.1 CHLORIDE (BEAKER) (test lbpe=612) 98 meq/L 98-107 CO2 (BEAKER) (test buuh=086) 23 meq/L 22-29 BLOOD UREA NITROGEN (BEAKER) (test vmmn=656) 76 mg/dL 7-21 CREATININE (BEAKER) (test zecp=655) 5.43 mg/dL 0.57-1.25 GLUCOSE RANDOM (BEAKER) (test hvvr=952) 106 mg/dL 70-105 CALCIUM (BEAKER) (test rave=389) 8.4 mg/dL 8.4-10.2 EGFR (BEAKER) (test zcwo=8333) 8 mL/min/1.73 sq m ESTIMATED GFR IS NOT ACCURATE CREATININE CLEARANCE IN PREDICTING GLOMERULAR FILTRATION RATE. ESTIMATED GFR IS NOT APPLICABLE FOR DIALYSIS PATIENTS. [id number] 10:06:00* Test Item Value Reference Range Comments PHOSPHORUS (BEAKER) (test szlq=444) 3.3 mg/dL 2.3-4.7 CBC W/PLT COUNT & AUTO [id number] 07:24:00* Test Item Value Reference Range Comments WHITE BLOOD CELL COUNT (BEAKER) (test giwl=019) 5.7 K/ L 3.5-10.5 RED BLOOD CELL COUNT (BEAKER) (test adtt=858) 2.33 M/ L 3.93-5.22 HEMOGLOBIN (BEAKER) (test fkcu=987) 7.3 GM/DL 11.2-15.7 HEMATOCRIT (BEAKER) (test ajtk=227) 23.2 % 34.1-44.9 MEAN CORPUSCULAR VOLUME (BEAKER) (test dpth=642) 99.6 fL 79.4-94.8 MEAN CORPUSCULAR HEMOGLOBIN (BEAKER) (test doqf=176) 31.3 pg 25.6-32.2 MEAN CORPUSCULAR HEMOGLOBIN CONC (BEAKER) (test xsmo=302) 31.5 GM/DL 32.2-35.5 RED CELL DISTRIBUTION WIDTH (BEAKER) (test bgcj=520) 15.8 % 11.7-14.4 PLATELET COUNT (BEAKER) (test axej=685) 240 K/CU MM 150-450 MEAN PLATELET VOLUME (BEAKER) (test zpoc=392) 9.5 fL 9.4-12.3 NUCLEATED RED BLOOD CELLS (BEAKER) (test tflo=063) 0 /100 WBC 0-0 NEUTROPHILS RELATIVE PERCENT (BEAKER) (test qzpc=955) 34 % LYMPHOCYTES RELATIVE PERCENT (BEAKER) (test uaik=727) 46 % MONOCYTES RELATIVE PERCENT (BEAKER) (test ncxc=064) 15 % EOSINOPHILS RELATIVE PERCENT (BEAKER) (test lkgn=413) 2 % BASOPHILS RELATIVE PERCENT (BEAKER) (test couc=579) 1 % NEUTROPHILS ABSOLUTE COUNT (BEAKER) (test tuxt=853) 1.94 K/ L 1.56-6.13 LYMPHOCYTES ABSOLUTE COUNT (BEAKER) (test jkpl=384) 2.61 K/ L 1.18-3.74 MONOCYTES ABSOLUTE COUNT (BEAKER) (test atje=661) 0.87 K/ L 0.24-0.36 EOSINOPHILS ABSOLUTE COUNT (BEAKER) (test qdag=918) 0.12 K/ L 0.04-0.36 BASOPHILS ABSOLUTE COUNT (BEAKER) (test osyq=169) 0.03 K/ L 0.01-0.08 IMMATURE GRANULOCYTES-RELATIVE PERCENT (BEAKER) (test xcld=2208) 2 % 0-1 (MANUAL DIFFERENTIAL)2017-10-10 07:24:00* Test Item Value Reference Range Comments TOTAL COUNTED (BEAKER) (test fsft=3185) PT/[id number] 06:39:00* Test Item Value Reference Range Comments PROTIME (BEAKER) (test wfyq=880) 14.5 seconds 11.7-14.7 INR (BEAKER) (test rljk=881) 1.1 <=5.9 PARTIAL THROMBOPLASTIN TIME (BEAKER) (test whrk=683) 31.7 seconds 22.5-36.0 RECOMMENDED COUMADIN/WARFARIN INR THERAPY RANGESSTANDARD DOSE: 2.0 - 3.0 Inclu linette: PROPHYLAXIS for venous thrombosis, systemic embolization; TREATMENT for kimmy ous thrombosis and/or pulmonary embolus.HIGH RISK: Target INR is 2.5-3.5 for pat ients with mechanical heart valves.PROTHROMBIN TIME/[id number] 06:38:00* Test Item Value Reference Range Comments PROTIME (BEAKER) (test mmyx=049) 14.5 seconds 11.7-14.7 INR (BEAKER) (test gips=953) 1.1 <=5.9 RECOMMENDED COUMADIN/WARFARIN INR THERAPY RANGESSTANDARD DOSE: 2.0 - 3.0 Inclu linette: PROPHYLAXIS for venous thrombosis, systemic embolization; TREATMENT for kimmy ous thrombosis and/or pulmonary embolus.HIGH RISK: Target INR is 2.5-3.5 for pat ients with mechanical heart valves.POCT-GLUCOSE [id number] 21:45:00* Test Item Value Reference Range Comments POC-GLUCOSE METER (BEAKER) (test cgil=0219) 192 mg/dL 70-110 TESTED AT [address] [address] POCT-GLUCOSE [id number] 20:55:00* Test Item Value Reference Range Comments POC-GLUCOSE METER (BEAKER) (test ogjv=3494) 112 mg/dL 70-110 TESTED AT [address] [address] POCT-GLUCOSE [id number] 17:52:00* Test Item Value Reference Range Comments POC-GLUCOSE METER (BEAKER) (test pmbk=6612) 198 mg/dL 70-110 TESTED AT [address] [address] POCT-GLUCOSE [id number] 13:05:00* Test Item Value Reference Range Comments POC-GLUCOSE METER (BEAKER) (test hhum=0354) 254 mg/dL 70-110 TESTED AT [address] [address] BRONCHIAL CULTURE + GRAM [id number] 11:33:00* Test Item Value Reference Range Comments CULTURE (BEAKER) (test ovvw=6946) 3 out of 4 media Aspergillus fumigatus GRAM STAIN RESULT (BEAKER) (test gqwo=9086) 4+ WBCs GRAM STAIN RESULT (BEAKER) (test jaqz=020462) <1+ gram positive cocci in pairs and clusters 1+ Normal respiratory jasbir presentTACROLIMUS [id number] 10:09:00* Test Item Value Reference Range Comments TACROLIMUS BLOOD (BEAKER) (test wrwz=098) 4.1 ng/mL 10.0-20.0 RAD, CHEST, 1 VIEW, NON [id number] 08:25:00Referring: Dr. Lazarus Medeiros for exam:->pulmonary congestionShould this be performed at the bedside?->YesFINAL REPORT Chest, one view. HISTORY: Pulmonary congestion COMPARISON: 10/08/2017 IMPRESSION: Unchanged mild central vascular congestion and interstitial edema. Interval removal of left IJ catheter and feeding catheter. Trace left pleural effusion. No pneumothorax. Unchanged mild enlargement of the cardiomediastinal silhouette. No pneumothorax. Signed: Nick Arauz MDReport Verified Date/Time: 10/09/2017 08:25:49 Reading Location: [address] Body Reading Room C METABOLIC [id number] 05:29:00* Test Item Value Reference Range Comments SODIUM (BEAKER) (test fmqp=422) 137 meq/L 136-145 POTASSIUM (BEAKER) (test squx=356) 4.8 meq/L 3.5-5.1 CHLORIDE (BEAKER) (test owpy=463) 102 meq/L 98-107 CO2 (BEAKER) (test dnnh=237) 25 meq/L 22-29 BLOOD UREA NITROGEN (BEAKER) (test zcej=937) 54 mg/dL 7-21 CREATININE (BEAKER) (test vspm=125) 3.88 mg/dL 0.57-1.25 GLUCOSE RANDOM (BEAKER) (test visy=198) 96 mg/dL 70-105 CALCIUM (BEAKER) (test vtbs=824) 8.8 mg/dL 8.4-10.2 EGFR (BEAKER) (test otgc=3132) 12 mL/min/1.73 sq m ESTIMATED GFR IS NOT ACCURATE CREATININE CLEARANCE IN PREDICTING GLOMERULAR FILTRATION RATE. ESTIMATED GFR IS NOT APPLICABLE FOR DIALYSIS PATIENTS. [id number] 05:24:00* Test Item Value Reference Range Comments PHOSPHORUS (BEAKER) (test qjnc=517) 3.8 mg/dL 2.3-4.7 [id number] 05:24:00* Test Item Value Reference Range Comments MAGNESIUM (BEAKER) (test mlkb=481) 2.0 mg/dL 1.6-2.6 CBC W/PLT COUNT & AUTO [id number] 05:19:00* Test Item Value Reference Range Comments WHITE BLOOD CELL COUNT (BEAKER) (test qwbh=057) 6.4 K/ L 3.5-10.5 RED BLOOD CELL COUNT (BEAKER) (test snlt=176) 2.48 M/ L 3.93-5.22 HEMOGLOBIN (BEAKER) (test whvp=907) 7.8 GM/DL 11.2-15.7 HEMATOCRIT (BEAKER) (test fcgw=676) 25.0 % 34.1-44.9 MEAN CORPUSCULAR VOLUME (BEAKER) (test cskc=313) 100.8 fL 79.4-94.8 MEAN CORPUSCULAR HEMOGLOBIN (BEAKER) (test jbmy=354) 31.5 pg 25.6-32.2 MEAN CORPUSCULAR HEMOGLOBIN CONC (BEAKER) (test osof=991) 31.2 GM/DL 32.2-35.5 RED CELL DISTRIBUTION WIDTH (BEAKER) (test qafm=431) 15.9 % 11.7-14.4 PLATELET COUNT (BEAKER) (test fetj=543) 243 K/CU MM 150-450 Discordant PLT result Compared to previous one, Clinical correlation required. MEAN PLATELET VOLUME (BEAKER) (test neil=047) 8.4 fL 9.4-12.3 NUCLEATED RED BLOOD CELLS (BEAKER) (test lfov=042) 0 /100 WBC 0-0 NEUTROPHILS RELATIVE PERCENT (BEAKER) (test rznp=251) 46 % LYMPHOCYTES RELATIVE PERCENT (BEAKER) (test uuem=763) 36 % MONOCYTES RELATIVE PERCENT (BEAKER) (test ycrt=371) 13 % EOSINOPHILS RELATIVE PERCENT (BEAKER) (test bmfy=195) 1 % BASOPHILS RELATIVE PERCENT (BEAKER) (test citn=688) 1 % NEUTROPHILS ABSOLUTE COUNT (BEAKER) (test ijtn=434) 2.92 K/ L 1.56-6.13 LYMPHOCYTES ABSOLUTE COUNT (BEAKER) (test qacx=561) 2.32 K/ L 1.18-3.74 MONOCYTES ABSOLUTE COUNT (BEAKER) (test gzyk=197) 0.83 K/ L 0.24-0.36 EOSINOPHILS ABSOLUTE COUNT (BEAKER) (test mjze=425) 0.09 K/ L 0.04-0.36 BASOPHILS ABSOLUTE COUNT (BEAKER) (test iafp=079) 0.03 K/ L 0.01-0.08 IMMATURE GRANULOCYTES-RELATIVE PERCENT (BEAKER) (test gfyl=2492) 3 % 0-1 PT/[id number] 04:48:00* Test Item Value Reference Range Comments PROTIME (BEAKER) (test ghyq=537) 13.3 seconds 11.7-14.7 INR (BEAKER) (test kozr=497) 1.0 <=5.9 PARTIAL THROMBOPLASTIN TIME (BEAKER) (test rxkn=377) 30.1 seconds 22.5-36.0 RECOMMENDED COUMADIN/WARFARIN INR THERAPY RANGESSTANDARD DOSE: 2.0 - 3.0 Inclu linette: PROPHYLAXIS for venous thrombosis, systemic embolization; TREATMENT for kimmy ous thrombosis and/or pulmonary embolus.HIGH RISK: Target INR is 2.5-3.5 for pat ients with mechanical heart valves.PROTHROMBIN TIME/[id number] 04:47:00* Test Item Value Reference Range Comments PROTIME (BEAKER) (test hpao=515) 13.3 seconds 11.7-14.7 INR (BEAKER) (test jjfu=075) 1.0 <=5.9 RECOMMENDED COUMADIN/WARFARIN INR THERAPY RANGESSTANDARD DOSE: 2.0 - 3.0 Inclu linette: PROPHYLAXIS for venous thrombosis, systemic embolization; TREATMENT for kimmy ous thrombosis and/or pulmonary embolus.HIGH RISK: Target INR is 2.5-3.5 for pat ients with mechanical heart valves.POCT-GLUCOSE [id number] 21:17:00* Test Item Value Reference Range Comments POC-GLUCOSE METER (BEAKER) (test eovc=3698) 131 mg/dL 70-110 [address] AT [address] [address] POCT-GLUCOSE [id number] 18:49:00* Test Item Value Reference Range Comments POC-GLUCOSE METER (BEAKER) (test pfqb=6189) 140 mg/dL 70-110 TESTED AT [address] [address] TACROLIMUS [id number] 13:47:00* Test Item Value Reference Range Comments TACROLIMUS BLOOD (BEAKER) (test coau=050) 5.8 ng/mL 10.0-20.0 POCT-GLUCOSE [id number] 12:30:00* Test Item Value Reference Range Comments POC-GLUCOSE METER (BEAKER) (test ujva=0953) 191 mg/dL 70-110 TESTED AT [address] [address] RAD, CHEST, 1 VIEW, NON [id number] 06:45:00Referring: Dr. Lazarus Medeiros for exam:->pulmonary congestionShould this be performed at the bedside?->YesFINAL REPORT Chest one view. Clinical history: pulmonary congestion Comparison: Chest radiograph 10/07/2017 Technique: A single frontal view of the chest was obtained. Findings/impression: Cardiomediastinal contours are unchanged. There is a feeding tube which projects below the diaphragm. There is a left IJ central venous catheter with tip in the right atrium. There is a vascular stent in the distal left brachiocephalic vein. There is persistent pulmonary vascular congestion. There is no pleural effusion or pneumothorax. Signed: Jono Barrioseport Verified Date/Time: 10/08/2017 06:45:12 Reading Location: [address] Transitional Reading Room [id number] 06:35:00* Test Item Value Reference Range Comments PHOSPHORUS (BEAKER) (test iufr=897) 1.5 mg/dL 2.3-4.7 BASIC METABOLIC [id number] 06:06:00* Test Item Value Reference Range Comments SODIUM (BEAKER) (test wawk=059) 136 meq/L 136-145 POTASSIUM (BEAKER) (test podv=854) 3.9 meq/L 3.5-5.1 CHLORIDE (BEAKER) (test dxhg=979) 100 meq/L 98-107 CO2 (BEAKER) (test sifq=209) 27 meq/L 22-29 BLOOD UREA NITROGEN (BEAKER) (test iinb=033) 24 mg/dL 7-21 CREATININE (BEAKER) (test qupw=387) 2.06 mg/dL 0.57-1.25 GLUCOSE RANDOM (BEAKER) (test ddih=183) 182 mg/dL 70-105 CALCIUM (BEAKER) (test esyl=640) 9.1 mg/dL 8.4-10.2 EGFR (BEAKER) (test dfbg=0971) 24 mL/min/1.73 sq m ESTIMATED GFR IS NOT ACCURATE CREATININE CLEARANCE IN PREDICTING GLOMERULAR FILTRATION RATE. ESTIMATED GFR IS NOT APPLICABLE FOR DIALYSIS PATIENTS. [id number] 06:05:00* Test Item Value Reference Range Comments MAGNESIUM (BEAKER) (test gorp=473) 2.0 mg/dL 1.6-2.6 BLOOD [id number] 06:00:00* Test Item Value Reference Range Comments CULTURE (BEAKER) (test kcuh=2688) No growth in 5 days BLOOD [id number] 06:00:00* Test Item Value Reference Range Comments CULTURE (BEAKER) (test kges=8609) No growth in 5 days BLOOD [id number] 06:00:00* Test Item Value Reference Range Comments CULTURE (BEAKER) (test qafm=6168) No growth in 5 days PT/[id number] 05:39:00* Test Item Value Reference Range Comments PROTIME (BEAKER) (test mapb=345) 15.5 seconds 11.7-14.7 INR (BEAKER) (test zhem=302) 1.2 <=5.9 PARTIAL THROMBOPLASTIN TIME (BEAKER) (test mffh=938) 30.8 seconds 22.5-36.0 RECOMMENDED COUMADIN/WARFARIN INR THERAPY RANGESSTANDARD DOSE: 2.0 - 3.0 Inclu linette: PROPHYLAXIS for venous thrombosis, systemic embolization; TREATMENT for kimmy ous thrombosis and/or pulmonary embolus.HIGH RISK: Target INR is 2.5-3.5 for pat ients with mechanical heart valves.PROTHROMBIN TIME/[id number] 05:38:00* Test Item Value Reference Range Comments PROTIME (BEAKER) (test yetm=710) 15.5 seconds 11.7-14.7 INR (BEAKER) (test rkej=078) 1.2 <=5.9 RECOMMENDED COUMADIN/WARFARIN INR THERAPY RANGESSTANDARD DOSE: 2.0 - 3.0 Inclu linette: PROPHYLAXIS for venous thrombosis, systemic embolization; TREATMENT for kimmy ous thrombosis and/or pulmonary embolus.HIGH RISK: Target INR is 2.5-3.5 for pat ients with mechanical heart valves.LACTIC ACID, ARTERIAL, WHOLE [id number] 05:34:00* Test Item Value Reference Range Comments LACTATE BLOOD ARTERIAL (2) (BEAKER) (test baro=7108) 1.7 mmol/L 0.5-2.2 Effective 11/26/2015: Units/Reference Range ChangeNew: 0.5-2.2 mmol/L Previous: 5 -20 mg/dLCBC W/PLT COUNT & AUTO [id number] 05:26:00* Test Item Value Reference Range Comments WHITE BLOOD CELL COUNT (BEAKER) (test tpje=593) 6.3 K/ L 3.5-10.5 RED BLOOD CELL COUNT (BEAKER) (test gbmm=512) 2.72 M/ L 3.93-5.22 HEMOGLOBIN (BEAKER) (test iwpx=453) 8.3 GM/DL 11.2-15.7 HEMATOCRIT (BEAKER) (test gfjg=026) 26.5 % 34.1-44.9 MEAN CORPUSCULAR VOLUME (BEAKER) (test tcsc=179) 97.4 fL 79.4-94.8 MEAN CORPUSCULAR HEMOGLOBIN (BEAKER) (test kyec=946) 30.5 pg 25.6-32.2 MEAN CORPUSCULAR HEMOGLOBIN CONC (BEAKER) (test zofg=340) 31.3 GM/DL 32.2-35.5 RED CELL DISTRIBUTION WIDTH (BEAKER) (test gzma=522) 16.1 % 11.7-14.4 PLATELET COUNT (BEAKER) (test jnvf=952) 296 K/CU MM 150-450 MEAN PLATELET VOLUME (BEAKER) (test nbjb=111) 8.8 fL 9.4-12.3 NUCLEATED RED BLOOD CELLS (BEAKER) (test nnvp=546) 0 /100 WBC 0-0 NEUTROPHILS RELATIVE PERCENT (BEAKER) (test kgif=242) 61 % LYMPHOCYTES RELATIVE PERCENT (BEAKER) (test enqk=124) 25 % MONOCYTES RELATIVE PERCENT (BEAKER) (test bfmv=605) 10 % EOSINOPHILS RELATIVE PERCENT (BEAKER) (test eykh=497) 1 % BASOPHILS RELATIVE PERCENT (BEAKER) (test dcef=028) 0 % NEUTROPHILS ABSOLUTE COUNT (BEAKER) (test bftt=646) 3.83 K/ L 1.56-6.13 LYMPHOCYTES ABSOLUTE COUNT (BEAKER) (test heub=344) 1.58 K/ L 1.18-3.74 MONOCYTES ABSOLUTE COUNT (BEAKER) (test fcfr=255) 0.64 K/ L 0.24-0.36 EOSINOPHILS ABSOLUTE COUNT (BEAKER) (test kbzr=113) 0.04 K/ L 0.04-0.36 BASOPHILS ABSOLUTE COUNT (BEAKER) (test eeyz=853) 0.02 K/ L 0.01-0.08 IMMATURE GRANULOCYTES-RELATIVE PERCENT (BEAKER) (test vhtk=5269) 3 % 0-1 POCT-GLUCOSE [id number] 00:19:00* Test Item Value Reference Range Comments POC-GLUCOSE METER (BEAKER) (test fxpv=0743) 181 mg/dL 70-110 [address]ED AT [address] [address] POCT-GLUCOSE [id number] 18:19:00* Test Item Value Reference Range Comments POC-GLUCOSE METER (BEAKER) (test seke=5795) 215 mg/dL 70-110 TESTED AT [address] [address] POCT-GLUCOSE [id number] 13:00:00* Test Item Value Reference Range Comments POC-GLUCOSE METER (BEAKER) (test hzak=9671) 183 mg/dL 70-110 TESTED AT [address] [address] TACROLIMUS [id number] 09:36:00* Test Item Value Reference Range Comments TACROLIMUS BLOOD (BEAKER) (test bbmw=276) 8.7 ng/mL 10.0-20.0 RAD, CHEST, 1 VIEW, NON [id number] 09:03:00Referring: Dr. Lazarus Medeiros for exam:->pulmonary congestionShould this be performed at the bedside?->YesFINAL REPORT Chest one view INDICATION: Pulmonary congestion COMPARISON: 10/06/2017 IMPRESSION: Feeding tube, left jugular line, median sternotomy changes, and mediastinal vascular stent are again noted. The cardiomediastinal contours are stable. There is pulmonary vascular congestion. Interstitial reticulation may reflect mild edema or atypical pneumonitis. Minimal pleural effusions are suspected. No pneumothorax is seen. Signed: Mario Castro Verified Date/Time: 10/07/2017 09:03:05 Reading Location: [facility] Radiology Reading Room ELLANEOUS LAB [id number] 07:31:00* Test Item Value Reference Range Comments SCAN RESULT (test kjsz=[id number]) BASIC METABOLIC [id number] 05:53:00* Test Item Value Reference Range Comments SODIUM (BEAKER) (test huks=780) 140 meq/L 136-145 POTASSIUM (BEAKER) (test limy=151) 4.6 meq/L 3.5-5.1 CHLORIDE (BEAKER) (test jltv=738) 105 meq/L 98-107 CO2 (BEAKER) (test eaps=405) 16 meq/L 22-29 BLOOD UREA NITROGEN (BEAKER) (test fenz=669) 111 mg/dL 7-21 CREATININE (BEAKER) (test olnq=109) 6.02 mg/dL 0.57-1.25 GLUCOSE RANDOM (BEAKER) (test xlpk=770) 210 mg/dL 70-105 CALCIUM (BEAKER) (test kojw=613) 8.9 mg/dL 8.4-10.2 EGFR (BEAKER) (test mfzi=8062) 7 mL/min/1.73 sq m ESTIMATED GFR IS NOT ACCURATE CREATININE CLEARANCE IN PREDICTING GLOMERULAR FILTRATION RATE. ESTIMATED GFR IS NOT APPLICABLE FOR DIALYSIS PATIENTS. [id number] 05:47:00* Test Item Value Reference Range Comments PHOSPHORUS (BEAKER) (test mlzc=470) 5.2 mg/dL 2.3-4.7 [id number] 05:47:00* Test Item Value Reference Range Comments MAGNESIUM (BEAKER) (test kpne=807) 2.6 mg/dL 1.6-2.6 LACTIC ACID, ARTERIAL, WHOLE [id number] 04:55:00* Test Item Value Reference Range Comments LACTATE BLOOD ARTERIAL (2) (BEAKER) (test uuhd=1022) 1.1 mmol/L 0.5-2.2 Effective 11/26/2015: Units/Reference Range ChangeNew: 0.5-2.2 mmol/L Previous: 5 -20 mg/dLPT/[id number] 04:50:00* Test Item Value Reference Range Comments PROTIME (BEAKER) (test hdps=339) 13.9 seconds 11.7-14.7 INR (BEAKER) (test qrcu=014) 1.1 <=5.9 PARTIAL THROMBOPLASTIN TIME (BEAKER) (test slzp=893) 30.3 seconds 22.5-36.0 RECOMMENDED COUMADIN/WARFARIN INR THERAPY RANGESSTANDARD DOSE: 2.0 - 3.0 Inclu linette: PROPHYLAXIS for venous thrombosis, systemic embolization; TREATMENT for kimmy ous thrombosis and/or pulmonary embolus.HIGH RISK: Target INR is 2.5-3.5 for pat ients with mechanical heart valves.CBC W/PLT COUNT & AUTO [id number] 04:41:00* Test Item Value Reference Range Comments WHITE BLOOD CELL COUNT (BEAKER) (test ilvj=342) 8.6 K/ L 3.5-10.5 RED BLOOD CELL COUNT (BEAKER) (test cyew=632) 2.75 M/ L 3.93-5.22 HEMOGLOBIN (BEAKER) (test cjcl=885) 8.6 GM/DL 11.2-15.7 HEMATOCRIT (BEAKER) (test bhdi=930) 27.7 % 34.1-44.9 MEAN CORPUSCULAR VOLUME (BEAKER) (test pqvx=758) 100.7 fL 79.4-94.8 MEAN CORPUSCULAR HEMOGLOBIN (BEAKER) (test mujx=262) 31.3 pg 25.6-32.2 MEAN CORPUSCULAR HEMOGLOBIN CONC (BEAKER) (test uxnz=258) 31.0 GM/DL 32.2-35.5 RED CELL DISTRIBUTION WIDTH (BEAKER) (test cvqo=193) 16.4 % 11.7-14.4 PLATELET COUNT (BEAKER) (test znyn=622) 338 K/CU MM 150-450 MEAN PLATELET VOLUME (BEAKER) (test pbmx=318) 8.9 fL 9.4-12.3 NUCLEATED RED BLOOD CELLS (BEAKER) (test pjgn=336) 0 /100 WBC 0-0 NEUTROPHILS RELATIVE PERCENT (BEAKER) (test ysaw=308) 63 % LYMPHOCYTES RELATIVE PERCENT (BEAKER) (test mrgm=788) 27 % MONOCYTES RELATIVE PERCENT (BEAKER) (test shew=080) 8 % EOSINOPHILS RELATIVE PERCENT (BEAKER) (test tbsv=884) 1 % BASOPHILS RELATIVE PERCENT (BEAKER) (test lydj=898) 0 % NEUTROPHILS ABSOLUTE COUNT (BEAKER) (test wjkw=096) 5.45 K/ L 1.56-6.13 LYMPHOCYTES ABSOLUTE COUNT (BEAKER) (test brlh=634) 2.29 K/ L 1.18-3.74 MONOCYTES ABSOLUTE COUNT (BEAKER) (test odau=626) 0.67 K/ L 0.24-0.36 EOSINOPHILS ABSOLUTE COUNT (BEAKER) (test nmkd=510) 0.05 K/ L 0.04-0.36 BASOPHILS ABSOLUTE COUNT (BEAKER) (test kmab=310) 0.01 K/ L 0.01-0.08 IMMATURE GRANULOCYTES-RELATIVE PERCENT (BEAKER) (test trff=5027) 2 % 0-1 POCT-GLUCOSE [id number] 00:18:00* Test Item Value Reference Range Comments POC-GLUCOSE METER (BEAKER) (test vucr=6072) 208 mg/dL 70-110 TESTED AT [address] [address] POCT-GLUCOSE [id number] 18:03:00* Test Item Value Reference Range Comments POC-GLUCOSE METER (BEAKER) (test slie=3834) 174 mg/dL 70-110 TESTED AT [address] [address] POCT-GLUCOSE [id number] 11:55:00* Test Item Value Reference Range Comments POC-GLUCOSE METER (BEAKER) (test uvdu=8105) 234 mg/dL 70-110 TESTED AT [address] [address] COMPREHENSIVE METABOLIC [id number] 11:26:00* Test Item Value Reference Range Comments TOTAL PROTEIN (BEAKER) (test gzsh=944) 6.9 gm/dL 6.0-8.3 ALBUMIN (BEAKER) (test oxee=7744) 3.5 g/dL 3.5-5.0 ALKALINE PHOSPHATASE (BEAKER) (test rqqj=015) 109 U/L 40-150 BILIRUBIN TOTAL (BEAKER) (test thqo=932) 0.4 mg/dL 0.2-1.2 SODIUM (BEAKER) (test kdbf=811) 138 meq/L 136-145 POTASSIUM (BEAKER) (test pqgz=741) 4.7 meq/L 3.5-5.1 CHLORIDE (BEAKER) (test ekra=103) 102 meq/L 98-107 CO2 (BEAKER) (test tinp=049) 18 meq/L 22-29 BLOOD UREA NITROGEN (BEAKER) (test enue=633) 78 mg/dL 7-21 CREATININE (BEAKER) (test fobw=758) 4.98 mg/dL 0.57-1.25 GLUCOSE RANDOM (BEAKER) (test gcsa=609) 234 mg/dL 70-105 CALCIUM (BEAKER) (test rzit=081) 8.7 mg/dL 8.4-10.2 AST (SGOT) (BEAKER) (test dcob=121) 26 U/L 5-34 ALT (SGPT) (BEAKER) (test yzgi=826) 13 U/L 6-55 EGFR (BEAKER) (test cnye=8491) 9 mL/min/1.73 sq m ESTIMATED GFR IS NOT ACCURATE CREATININE CLEARANCE IN PREDICTING GLOMERULAR FILTRATION RATE. ESTIMATED GFR IS NOT APPLICABLE FOR DIALYSIS PATIENTS. BLOOD [id number] 11:00:00* Test Item Value Reference Range Comments CULTURE (BEAKER) (test bqrq=2429) No growth in 5 days CBC W/PLT COUNT & AUTO [id number] 10:53:00* Test Item Value Reference Range Comments WHITE BLOOD CELL COUNT (BEAKER) (test xhdk=428) 7.6 K/ L 3.5-10.5 RED BLOOD CELL COUNT (BEAKER) (test xohb=772) 2.88 M/ L 3.93-5.22 HEMOGLOBIN (BEAKER) (test vwmn=261) 8.9 GM/DL 11.2-15.7 HEMATOCRIT (BEAKER) (test oyxt=437) 28.9 % 34.1-44.9 MEAN CORPUSCULAR VOLUME (BEAKER) (test sbvq=589) 100.3 fL 79.4-94.8 MEAN CORPUSCULAR HEMOGLOBIN (BEAKER) (test qvvz=724) 30.9 pg 25.6-32.2 MEAN CORPUSCULAR HEMOGLOBIN CONC (BEAKER) (test aqug=759) 30.8 GM/DL 32.2-35.5 RED CELL DISTRIBUTION WIDTH (BEAKER) (test gfym=582) 16.7 % 11.7-14.4 PLATELET COUNT (BEAKER) (test zais=963) 355 K/CU MM 150-450 MEAN PLATELET VOLUME (BEAKER) (test pwrn=191) 9.2 fL 9.4-12.3 NUCLEATED RED BLOOD CELLS (BEAKER) (test ubyi=011) 0 /100 WBC 0-0 NEUTROPHILS RELATIVE PERCENT (BEAKER) (test hwxz=733) 71 % LYMPHOCYTES RELATIVE PERCENT (BEAKER) (test qqzz=886) 19 % MONOCYTES RELATIVE PERCENT (BEAKER) (test xtue=739) 8 % EOSINOPHILS RELATIVE PERCENT (BEAKER) (test ijgk=228) 0 % BASOPHILS RELATIVE PERCENT (BEAKER) (test sgyb=346) 0 % NEUTROPHILS ABSOLUTE COUNT (BEAKER) (test bqlt=650) 5.39 K/ L 1.56-6.13 LYMPHOCYTES ABSOLUTE COUNT (BEAKER) (test gvua=769) 1.42 K/ L 1.18-3.74 MONOCYTES ABSOLUTE COUNT (BEAKER) (test sjvc=273) 0.59 K/ L 0.24-0.36 EOSINOPHILS ABSOLUTE COUNT (BEAKER) (test bqaa=201) 0.00 K/ L 0.04-0.36 BASOPHILS ABSOLUTE COUNT (BEAKER) (test levo=612) 0.03 K/ L 0.01-0.08 IMMATURE GRANULOCYTES-RELATIVE PERCENT (BEAKER) (test wxig=8610) 2 % 0-1 [id number] 10:40:00* Test Item Value Reference Range Comments PROTIME (BEAKER) (test cnfi=047) 15.5 seconds 11.7-14.7 INR (BEAKER) (test juxg=967) 1.2 <=5.9 PARTIAL THROMBOPLASTIN TIME (BEAKER) (test nbgu=804) 30.9 seconds 22.5-36.0 RECOMMENDED COUMADIN/WARFARIN INR THERAPY RANGESSTANDARD DOSE: 2.0 - 3.0 Inclu linette: PROPHYLAXIS for venous thrombosis, systemic embolization; TREATMENT for kimmy ous thrombosis and/or pulmonary embolus.HIGH RISK: Target INR is 2.5-3.5 for pat ients with mechanical heart valves.LACTIC ACID, ARTERIAL, WHOLE [id number] 10:34:00* Test Item Value Reference Range Comments LACTATE BLOOD ARTERIAL (2) (BEAKER) (test gjcg=6155) 0.6 mmol/L 0.5-2.2 Effective 11/26/2015: Units/Reference Range ChangeNew: 0.5-2.2 mmol/L Previous: 5 -20 mg/dLBLOOD GAS, [id number] 10:13:00* Test Item Value Reference Range Comments PH ARTERIAL (BEAKER) (test efvc=171) 7.44 7.35-7.45 PCO2 ARTERIAL (BEAKER) (test zslv=321) 32 mmHg 35-45 PO2 ARTERIAL (BEAKER) (test bclr=397) 115 mmHg 80-90 O2 SATURATION ARTERIAL (BEAKER) (test zxdv=619) 98.4 % 96.0-97.0 HCO3 ARTERIAL (BEAKER) (test xcto=507) 21 mmol/L 21-29 BASE EXCESS ARTERIAL (BEAKER) (test uobx=536) -2.3 mmol/L -2.0-3.0 PATIENT TEMPERATURE (BEAKER) (test ybgl=9237) 37.0 C FIO2 (BEAKER) (test bvzx=2512) 24.0 % TACROLIMUS [id number] 09:27:00* Test Item Value Reference Range Comments TACROLIMUS BLOOD (BEAKER) (test dhyz=434) 13.6 ng/mL 10.0-20.0 RAD, CHEST, 1 VIEW, NON [id number] 06:52:00Referring: Dr. Lazarus Medeiros for exam:->pulmonary congestionShould this be performed at the bedside?->YesFINAL REPORT Chest one view. Clinical history: pulmonary congestion Comparison: Chest radiograph 10/05/2017 Technique: A single frontal view of the chest was obtained. Findings/impression:There is a left IJ central venous catheter with tip in the proximal right atrium. There is a feeding tube which projects below the diaphragm and overlies the stomach. The heart is normal in size. The aorta is atherosclerotic. There is diffuse bilateral interstitial prominence, not significantly changed compatible with pulmonary vascular congestion. There is no focal pulmonary consolidation, pleural effusion or pneumothorax. Signed: Jono Barrios MDReport Verified Date/Time: 10/06/2017 06:52:16 Reading Location: [address] Transitional Reading Room C METABOLIC [id number] 06:33:00* Test Item Value Reference Range Comments SODIUM (BEAKER) (test yjom=216) 141 meq/L 136-145 POTASSIUM (BEAKER) (test uqsu=569) 4.9 meq/L 3.5-5.1 CHLORIDE (BEAKER) (test cjyn=116) 103 meq/L 98-107 CO2 (BEAKER) (test qppv=710) 20 meq/L 22-29 BLOOD UREA NITROGEN (BEAKER) (test hakm=066) 67 mg/dL 7-21 CREATININE (BEAKER) (test ttyh=182) 4.61 mg/dL 0.57-1.25 GLUCOSE RANDOM (BEAKER) (test rndl=020) 141 mg/dL 70-105 CALCIUM (BEAKER) (test gaoi=264) 9.3 mg/dL 8.4-10.2 EGFR (BEAKER) (test napt=2612) 10 mL/min/1.73 sq m ESTIMATED GFR IS NOT ACCURATE CREATININE CLEARANCE IN PREDICTING GLOMERULAR FILTRATION RATE. ESTIMATED GFR IS NOT APPLICABLE FOR DIALYSIS PATIENTS. [id number] 06:28:00* Test Item Value Reference Range Comments PHOSPHORUS (BEAKER) (test zsff=046) 7.0 mg/dL 2.3-4.7 [id number] 06:28:00* Test Item Value Reference Range Comments MAGNESIUM (BEAKER) (test nfea=345) 2.4 mg/dL 1.6-2.6 PT/[id number] 06:07:00* Test Item Value Reference Range Comments PROTIME (BEAKER) (test htqb=889) 15.0 seconds 11.7-14.7 INR (BEAKER) (test yypv=427) 1.2 <=5.9 PARTIAL THROMBOPLASTIN TIME (BEAKER) (test hukr=652) 29.8 seconds 22.5-36.0 RECOMMENDED COUMADIN/WARFARIN INR THERAPY RANGESSTANDARD DOSE: 2.0 - 3.0 Inclu linette: PROPHYLAXIS for venous thrombosis, systemic embolization; TREATMENT for kimmy ous thrombosis and/or pulmonary embolus.HIGH RISK: Target INR is 2.5-3.5 for pat ients with mechanical heart valves.PROTHROMBIN TIME/[id number] 06:06:00* Test Item Value Reference Range Comments PROTIME (BEAKER) (test dslk=774) 15.0 seconds 11.7-14.7 INR (BEAKER) (test limh=343) 1.2 <=5.9 RECOMMENDED COUMADIN/WARFARIN INR THERAPY RANGESSTANDARD DOSE: 2.0 - 3.0 Inclu linette: PROPHYLAXIS for venous thrombosis, systemic embolization; TREATMENT for kimmy ous thrombosis and/or pulmonary embolus.HIGH RISK: Target INR is 2.5-3.5 for pat ients with mechanical heart valves.LACTIC ACID, ARTERIAL, WHOLE [id number] 06:00:00* Test Item Value Reference Range Comments LACTATE BLOOD ARTERIAL (2) (BEAKER) (test daba=0030) 0.4 mmol/L 0.5-2.2 Effective 11/26/2015: Units/Reference Range ChangeNew: 0.5-2.2 mmol/L Previous: 5 -20 mg/dLBLOOD [id number] 06:00:00* Test Item Value Reference Range Comments CULTURE (BEAKER) (test jglj=3067) No growth in 5 days POCT-GLUCOSE [id number] 05:54:00* Test Item Value Reference Range Comments POC-GLUCOSE METER (BEAKER) (test vfbq=7738) 150 mg/dL 70-110 TESTED AT [facility] [address] [place] [id number] CBC W/PLT COUNT & AUTO [id number] 05:42:00* Test Item Value Reference Range Comments WHITE BLOOD CELL COUNT (BEAKER) (test zmfy=027) 8.3 K/ L 3.5-10.5 RED BLOOD CELL COUNT (BEAKER) (test ywew=189) 3.05 M/ L 3.93-5.22 HEMOGLOBIN (BEAKER) (test fsvx=895) 9.4 GM/DL 11.2-15.7 HEMATOCRIT (BEAKER) (test kgij=048) 30.5 % 34.1-44.9 MEAN CORPUSCULAR VOLUME (BEAKER) (test ifzp=561) 100.0 fL 79.4-94.8 MEAN CORPUSCULAR HEMOGLOBIN (BEAKER) (test keco=989) 30.8 pg 25.6-32.2 MEAN CORPUSCULAR HEMOGLOBIN CONC (BEAKER) (test ejwq=786) 30.8 GM/DL 32.2-35.5 RED CELL DISTRIBUTION WIDTH (BEAKER) (test ctch=165) 16.6 % 11.7-14.4 PLATELET COUNT (BEAKER) (test aywt=172) 333 K/CU MM 150-450 MEAN PLATELET VOLUME (BEAKER) (test wwyn=369) 8.5 fL 9.4-12.3 NUCLEATED RED BLOOD CELLS (BEAKER) (test czcj=768) 0 /100 WBC 0-0 NEUTROPHILS RELATIVE PERCENT (BEAKER) (test xlbs=110) 75 % LYMPHOCYTES RELATIVE PERCENT (BEAKER) (test ewyq=537) 16 % MONOCYTES RELATIVE PERCENT (BEAKER) (test gsca=784) 8 % EOSINOPHILS RELATIVE PERCENT (BEAKER) (test vxiu=459) 0 % BASOPHILS RELATIVE PERCENT (BEAKER) (test idxt=951) 0 % NEUTROPHILS ABSOLUTE COUNT (BEAKER) (test iapr=741) 6.20 K/ L 1.56-6.13 LYMPHOCYTES ABSOLUTE COUNT (BEAKER) (test xdmf=327) 1.29 K/ L 1.18-3.74 MONOCYTES ABSOLUTE COUNT (BEAKER) (test pxrn=366) 0.63 K/ L 0.24-0.36 EOSINOPHILS ABSOLUTE COUNT (BEAKER) (test kyid=538) 0.00 K/ L 0.04-0.36 BASOPHILS ABSOLUTE COUNT (BEAKER) (test dprb=305) 0.02 K/ L 0.01-0.08 IMMATURE GRANULOCYTES-RELATIVE PERCENT (BEAKER) (test jktx=0514) 2 % 0-1 POCT-GLUCOSE [id number] 00:10:00* Test Item Value Reference Range Comments POC-GLUCOSE METER (BEAKER) (test nkhc=8252) 163 mg/dL 70-110 TESTED AT [facility] [address] [facility] [address] POCT-GLUCOSE [id number] 18:28:00* Test Item Value Reference Range Comments POC-GLUCOSE METER (BEAKER) (test kdaq=1136) 160 mg/dL 70-110 TESTED AT [facility] [address] [facility] [address] RAD, ABDOMEN/KUB, 1 VIEW [id number] 16:28:00Referring: Dr. Lazarus Sauceda Reason for exam:->advanced corpakFINAL REPORT Abdomen one view INDICATION: Advanced Corpak. COMPARISON: 10/05/2017 at 1341 hours IMPRESSION: The feeding tube tip now at terminates at the level of the distal stomach. Suggest further advancement. The remainder of the study is grossly unchanged since 1341 hours. Please see that report for additional details. Signed: Mario Castro MDReport Verified Date/Time: 10/05/2017 16:28:34 Reading Location: [facility] C013W Consult Reading Room , ABDOMEN/KUB, 1 VIEW AP 2017-10-05 14:35:00Referring: Dr. Lazarus Sauceda Reason for exam:->s/p Corpak placementFINAL REPORT Abdomen one view INDICATION: Corpak placement COMPARISON: 10/01/2017 IMPRESSION: The tip of the feeding tube extends to the proximal stomach. Suggest advancement. There is retained colonic feces suggestive of constipation. Mild gaseous right colonic distention and nonspecific bowel wall edema could correlate with colitis on recent CT. Free air and fluid levels are not well assessed on a supine study. Right abdominal surgical clips, degenerative spine changes, osteopenia, and vascular calcifications are noted. Spinal compression fractures are better depicted on recent CT. The right lower chest is similar to earlier today. Signed: Mario Castro MDRdeejayort Verified Date/Time: 10/05/2017 14:35:11 Reading Location: [facility] C013W Consult Reading Room -GLUCOSE [id number] 13:05:00* Test Item Value Reference Range Comments POC-GLUCOSE METER (BEAKER) (test jxze=2965) 148 mg/dL 70-110 TESTED AT [place] [address] TSH/FREE T4 IF [id number] 13:01:00* Test Item Value Reference Range Comments THYROID STIMULATING HORMONE (BEAKER) (test mqlw=091) 0.96 uIU/mL 0.35-4.94 [id number] 12:32:00* Test Item Value Reference Range Comments AMMONIA (BEAKER) (test xfyb=597) 15 mol/L 18-72 BLOOD GAS, [id number] 11:17:00* Test Item Value Reference Range Comments PH ARTERIAL (BEAKER) (test weht=374) 7.42 7.35-7.45 PCO2 ARTERIAL (BEAKER) (test xech=463) 37 mmHg 35-45 PO2 ARTERIAL (BEAKER) (test sdks=833) 240 mmHg 80-90 O2 SATURATION ARTERIAL (BEAKER) (test qvgp=857) 99.6 % 96.0-97.0 HCO3 ARTERIAL (BEAKER) (test qvhq=129) 23 mmol/L 21-29 BASE EXCESS ARTERIAL (BEAKER) (test mada=919) -1.3 mmol/L -2.0-3.0 PATIENT TEMPERATURE (BEAKER) (test yojz=1674) 37.0 C FIO2 (BEAKER) (test fznn=1150) 36.0 % TACROLIMUS [id number] 10:34:00* Test Item Value Reference Range Comments TACROLIMUS BLOOD (BEAKER) (test uuyj=262) 13.2 ng/mL 10.0-20.0 RAD, CHEST, 1 VIEW, NON [id number] 08:19:00Referring: Dr. Lzaarus Medeiros for exam:->pulmonary congestionShould this be performed at the bedside?->YesFINAL REPORT Chest one view INDICATION: Pulmonary congestion COMPARISON: 10/04/2017 IMPRESSION: Left jugular line, median sternotomy changes, and mediastinal vascular stent are noted. Lung aeration is improved with scattered linear atelectasis and persistent interstitial and ground glass opacities suggesting edema. Pneumonitis should be excluded clinically. Minimal pleural effusions are suspected. The cardiomediastinal contours are stable. No pneumothorax is seen. Signed: Mario Castro [facility] Verified Date/Time: 10/05/2017 08:19:20 Reading Location: [facility] Radiology Reading Room C METABOLIC [id number] 05:55:00* Test Item Value Reference Range Comments SODIUM (BEAKER) (test wfpr=117) 140 meq/L 136-145 POTASSIUM (BEAKER) (test fgmc=036) 4.4 meq/L 3.5-5.1 CHLORIDE (BEAKER) (test kbhs=425) 100 meq/L 98-107 CO2 (BEAKER) (test zyqw=823) 23 meq/L 22-29 BLOOD UREA NITROGEN (BEAKER) (test odvc=130) 26 mg/dL 7-21 CREATININE (BEAKER) (test ilfa=716) 2.65 mg/dL 0.57-1.25 GLUCOSE RANDOM (BEAKER) (test fnor=368) 138 mg/dL 70-105 CALCIUM (BEAKER) (test gear=557) 9.4 mg/dL 8.4-10.2 EGFR (BEAKER) (test hplz=9944) 18 mL/min/1.73 sq m ESTIMATED GFR IS NOT ACCURATE CREATININE CLEARANCE IN PREDICTING GLOMERULAR FILTRATION RATE. ESTIMATED GFR IS NOT APPLICABLE FOR DIALYSIS PATIENTS. [id number] 05:51:00* Test Item Value Reference Range Comments PHOSPHORUS (BEAKER) (test sppg=419) 4.8 mg/dL 2.3-4.7 [id number] 05:51:00* Test Item Value Reference Range Comments MAGNESIUM (BEAKER) (test ahxt=522) 2.1 mg/dL 1.6-2.6 [id number] 05:44:00* Test Item Value Reference Range Comments PROTIME (BEAKER) (test zvtx=064) 14.2 seconds 11.7-14.7 INR (BEAKER) (test bfij=500) 1.1 <=5.9 PARTIAL THROMBOPLASTIN TIME (BEAKER) (test twbs=025) 31.6 seconds 22.5-36.0 RECOMMENDED COUMADIN/WARFARIN INR THERAPY RANGESSTANDARD DOSE: 2.0 - 3.0 Inclu linette: PROPHYLAXIS for venous thrombosis, systemic embolization; TREATMENT for kimmy ous thrombosis and/or pulmonary embolus.HIGH RISK: Target INR is 2.5-3.5 for pat ients with mechanical heart valves.CBC W/PLT COUNT & AUTO [id number] 05:44:00* Test Item Value Reference Range Comments WHITE BLOOD CELL COUNT (BEAKER) (test oicj=558) 11.4 K/ L 3.5-10.5 RED BLOOD CELL COUNT (BEAKER) (test nzox=285) 2.97 M/ L 3.93-5.22 HEMOGLOBIN (BEAKER) (test tywd=883) 9.3 GM/DL 11.2-15.7 HEMATOCRIT (BEAKER) (test ncmz=864) 30.5 % 34.1-44.9 MEAN CORPUSCULAR VOLUME (BEAKER) (test hkzd=694) 102.7 fL 79.4-94.8 MEAN CORPUSCULAR HEMOGLOBIN (BEAKER) (test zenj=480) 31.3 pg 25.6-32.2 MEAN CORPUSCULAR HEMOGLOBIN CONC (BEAKER) (test mcqa=891) 30.5 GM/DL 32.2-35.5 RED CELL DISTRIBUTION WIDTH (BEAKER) (test jlij=249) 17.4 % 11.7-14.4 PLATELET COUNT (BEAKER) (test lihu=842) 322 K/CU MM 150-450 MEAN PLATELET VOLUME (BEAKER) (test gsel=744) 8.8 fL 9.4-12.3 NUCLEATED RED BLOOD CELLS (BEAKER) (test tzca=880) 0 /100 WBC 0-0 NEUTROPHILS RELATIVE PERCENT (BEAKER) (test kwcx=961) 85 % LYMPHOCYTES RELATIVE PERCENT (BEAKER) (test tkly=921) 8 % MONOCYTES RELATIVE PERCENT (BEAKER) (test jing=419) 6 % EOSINOPHILS RELATIVE PERCENT (BEAKER) (test umfx=317) 0 % BASOPHILS RELATIVE PERCENT (BEAKER) (test bpdj=130) 0 % NEUTROPHILS ABSOLUTE COUNT (BEAKER) (test upfa=084) 9.66 K/ L 1.56-6.13 LYMPHOCYTES ABSOLUTE COUNT (BEAKER) (test llvb=161) 0.95 K/ L 1.18-3.74 MONOCYTES ABSOLUTE COUNT (BEAKER) (test hpwk=798) 0.68 K/ L 0.24-0.36 EOSINOPHILS ABSOLUTE COUNT (BEAKER) (test qghi=041) 0.00 K/ L 0.04-0.36 BASOPHILS ABSOLUTE COUNT (BEAKER) (test ngvr=125) 0.01 K/ L 0.01-0.08 IMMATURE GRANULOCYTES-RELATIVE PERCENT (BEAKER) (test idqr=9912) 1 % 0-1 PROTHROMBIN [id number] 05:43:00* Test Item Value Reference Range Comments PROTIME (BEAKER) (test qgsz=402) 14.2 seconds 11.7-14.7 INR (BEAKER) (test fckz=722) 1.1 <=5.9 RECOMMENDED COUMADIN/WARFARIN INR THERAPY RANGESSTANDARD DOSE: 2.0 - 3.0 Inclu linette: PROPHYLAXIS for venous thrombosis, systemic embolization; TREATMENT for kimmy ous thrombosis and/or pulmonary embolus.HIGH RISK: Target INR is 2.5-3.5 for pat ients with mechanical heart valves.LACTIC ACID, ARTERIAL, WHOLE [id number] 05:41:00* Test Item Value Reference Range Comments LACTATE BLOOD ARTERIAL (2) (BEAKER) (test nviw=7942) 0.5 mmol/L 0.5-2.2 Effective 11/26/2015: Units/Reference Range ChangeNew: 0.5-2.2 mmol/L Previous: 5 -20 mg/dLPOCT-GLUCOSE [id number] 00:19:00* Test Item Value Reference Range Comments POC-GLUCOSE METER (BEAKER) (test xtri=8673) 155 mg/dL 70-110 TESTED AT [facility] [address] [facility] [address] POCT-GLUCOSE [id number] 12:25:00* Test Item Value Reference Range Comments POC-GLUCOSE METER (BEAKER) (test ufmy=8464) 178 mg/dL 70-110 TESTED AT [facility] [address] [facility] [address] [place] [id number] 10:09:00* Test Item Value Reference Range Comments TACROLIMUS BLOOD (BEAKER) (test olxz=173) 7.9 ng/mL 10.0-20.0 RAD, CHEST, 1 VIEW, NON [id number] 08:02:00Referring: Dr. Lazarus Medeiros for exam:->pulmonary congestionShould this be performed at the bedside?->YesFINAL REPORT Chest one view INDICATION: Pulmonary congestion COMPARISON: 10/03/2017 IMPRESSION: Left jugular line extends to the SVC/RA junction. Median sternotomy changes and a mediastinal vascular stent are again noted. Lung volumes have decreased with pulmonary vascular congestion and minimally increased lung opacities suggesting worsening edema. Superimposed pneumonitis cannot be excluded given mild asymmetry. There is mild costophrenic angle blunting. The cardiomediastinal contours are stable. No pneumothorax is seen. Signed: Mario Castro MDReport Verified Date/Time: 10/04/2017 08:02:08 Reading Location: [facility] Radiology Reading Room OMYCIN LEVEL, [id number] 06:18:00* Test Item Value Reference Range Comments VANCOMYCIN RANDOM (BEAKER) (test sfys=875) 18.8 ug/mL Reference Range: No NormalsBASIC METABOLIC [id number] 06:11:00* Test Item Value Reference Range Comments SODIUM (BEAKER) (test mohi=908) 140 meq/L 136-145 POTASSIUM (BEAKER) (test znbv=775) 3.7 meq/L 3.5-5.1 CHLORIDE (BEAKER) (test lpug=003) 103 meq/L 98-107 CO2 (BEAKER) (test vsjl=856) 22 meq/L 22-29 BLOOD UREA NITROGEN (BEAKER) (test lkkj=632) 49 mg/dL 7-21 CREATININE (BEAKER) (test dyvc=302) 4.94 mg/dL 0.57-1.25 GLUCOSE RANDOM (BEAKER) (test blny=191) 155 mg/dL 70-105 CALCIUM (BEAKER) (test wwwi=333) 8.5 mg/dL 8.4-10.2 EGFR (BEAKER) (test rhap=3022) 9 mL/min/1.73 sq m ESTIMATED GFR IS NOT ACCURATE CREATININE CLEARANCE IN PREDICTING GLOMERULAR FILTRATION RATE. ESTIMATED GFR IS NOT APPLICABLE FOR DIALYSIS PATIENTS. [id number] 06:10:00* Test Item Value Reference Range Comments PHOSPHORUS (BEAKER) (test khsl=677) 5.7 mg/dL 2.3-4.7 [id number] 06:10:00* Test Item Value Reference Range Comments MAGNESIUM (BEAKER) (test fkfa=264) 1.9 mg/dL 1.6-2.6 PT/[id number] 06:04:00* Test Item Value Reference Range Comments PROTIME (BEAKER) (test qfqz=544) 16.9 seconds 11.7-14.7 INR (BEAKER) (test ykem=189) 1.4 <=5.9 PARTIAL THROMBOPLASTIN TIME (BEAKER) (test ablr=051) 36.1 seconds 22.5-36.0 RECOMMENDED COUMADIN/WARFARIN INR THERAPY RANGESSTANDARD DOSE: 2.0 - 3.0 Inclu linette: PROPHYLAXIS for venous thrombosis, systemic embolization; TREATMENT for kimmy ous thrombosis and/or pulmonary embolus.HIGH RISK: Target INR is 2.5-3.5 for pat ients with mechanical heart valves.PROTHROMBIN TIME/[id number] 06:03:00* Test Item Value Reference Range Comments PROTIME (BEAKER) (test lirp=121) 16.9 seconds 11.7-14.7 INR (BEAKER) (test mezt=014) 1.4 <=5.9 RECOMMENDED COUMADIN/WARFARIN INR THERAPY RANGESSTANDARD DOSE: 2.0 - 3.0 Inclu linette: PROPHYLAXIS for venous thrombosis, systemic embolization; TREATMENT for kimmy ous thrombosis and/or pulmonary embolus.HIGH RISK: Target INR is 2.5-3.5 for pat ients with mechanical heart valves.CBC W/PLT COUNT & AUTO [id number] 06:02:00* Test Item Value Reference Range Comments WHITE BLOOD CELL COUNT (BEAKER) (test vtei=150) 13.0 K/ L 3.5-10.5 RED BLOOD CELL COUNT (BEAKER) (test spjy=006) 2.85 M/ L 3.93-5.22 HEMOGLOBIN (BEAKER) (test gcmb=666) 8.6 GM/DL 11.2-15.7 HEMATOCRIT (BEAKER) (test qoaz=432) 28.0 % 34.1-44.9 MEAN CORPUSCULAR VOLUME (BEAKER) (test zkqv=794) 98.2 fL 79.4-94.8 MEAN CORPUSCULAR HEMOGLOBIN (BEAKER) (test qmsn=563) 30.2 pg 25.6-32.2 MEAN CORPUSCULAR HEMOGLOBIN CONC (BEAKER) (test ices=825) 30.7 GM/DL 32.2-35.5 RED CELL DISTRIBUTION WIDTH (BEAKER) (test wxrx=230) 17.8 % 11.7-14.4 PLATELET COUNT (BEAKER) (test fdyo=055) 257 K/CU MM 150-450 MEAN PLATELET VOLUME (BEAKER) (test prwa=460) 9.2 fL 9.4-12.3 NUCLEATED RED BLOOD CELLS (BEAKER) (test ysbm=303) 0 /100 WBC 0-0 NEUTROPHILS RELATIVE PERCENT (BEAKER) (test yewo=745) 82 % LYMPHOCYTES RELATIVE PERCENT (BEAKER) (test nmtb=524) 10 % MONOCYTES RELATIVE PERCENT (BEAKER) (test dkmr=457) 7 % EOSINOPHILS RELATIVE PERCENT (BEAKER) (test fybj=418) 0 % BASOPHILS RELATIVE PERCENT (BEAKER) (test oknk=723) 0 % NEUTROPHILS ABSOLUTE COUNT (BEAKER) (test dqyx=160) 10.65 K/ L 1.56-6.13 LYMPHOCYTES ABSOLUTE COUNT (BEAKER) (test sewo=108) 1.28 K/ L 1.18-3.74 MONOCYTES ABSOLUTE COUNT (BEAKER) (test fgob=572) 0.90 K/ L 0.24-0.36 EOSINOPHILS ABSOLUTE COUNT (BEAKER) (test siiv=882) 0.03 K/ L 0.04-0.36 BASOPHILS ABSOLUTE COUNT (BEAKER) (test tjmz=590) 0.02 K/ L 0.01-0.08 IMMATURE GRANULOCYTES-RELATIVE PERCENT (BEAKER) (test lvwt=4491) 1 % 0-1 LACTIC ACID, ARTERIAL, WHOLE [id number] 05:55:00* Test Item Value Reference Range Comments LACTATE BLOOD ARTERIAL (2) (BEAKER) (test agkq=8689) 0.5 mmol/L 0.5-2.2 Effective 11/26/2015: Units/Reference Range ChangeNew: 0.5-2.2 mmol/L Previous: 5 -20 mg/dLPOCT-GLUCOSE [id number] 00:22:00* Test Item Value Reference Range Comments POC-GLUCOSE METER (BEAKER) (test pexq=1876) 171 mg/dL 70-110 TESTED AT [address] [address] BLOOD GAS, [id number] 22:22:00* Test Item Value Reference Range Comments PH ARTERIAL (BEAKER) (test mclj=144) 7.41 7.35-7.45 PCO2 ARTERIAL (BEAKER) (test rfju=285) 40 mmHg 35-45 PO2 ARTERIAL (BEAKER) (test lxis=245) 94 mmHg 80-90 O2 SATURATION ARTERIAL (BEAKER) (test aqsi=376) 97.2 % 96.0-97.0 HCO3 ARTERIAL (BEAKER) (test aole=905) 24 mmol/L 21-29 BASE EXCESS ARTERIAL (BEAKER) (test vktn=091) -0.2 mmol/L -2.0-3.0 PATIENT TEMPERATURE (BEAKER) (test lzex=1535) 37.0 C FIO2 (BEAKER) (test waug=8601) 36.0 % RAD, CHEST, 1 VIEW, NON [id number] 20:44:00Referring: Dr. Lazarus Medeiros for exam:->tachypneaShould this be performed at the bedside?->Yes FINAL REPORT RAD, CHEST, 1 VIEW, NON DEPT INDICATION: tac hypnea COMPARISON: 16 hours prior FINDINGS: Portable frontal view of the chest. IMPRESSION: Support Lines: Interval extubation and removal of enteric tube. L eft IJ central venous catheter is stable. Lungs and pleura: Airspace appearance is unchanged. There are persistent trace bilateral effusions. No pneumothorax.He art and mediastinum: Stable contours. Stable surgical changes.Additional finding s: None. Signed: JR Baez Robert MDRepgerard Verified Date/Time: 10/04/19 20:44:08 Reading Location: [address] Reading Room Electronic ally signed by: MARC BAEZ on 10/03/2017 08:44 PM BASIC METABOLIC [id number] 20:36:00* Test Item Value Reference Range Comments SODIUM (BEAKER) (test pkqp=488) 139 meq/L 136-145 POTASSIUM (BEAKER) (test srrm=289) 3.8 meq/L 3.5-5.1 CHLORIDE (BEAKER) (test joqe=647) 103 meq/L 98-107 CO2 (BEAKER) (test olrz=685) 20 meq/L 22-29 BLOOD UREA NITROGEN (BEAKER) (test rjdn=345) 41 mg/dL 7-21 CREATININE (BEAKER) (test dsil=999) 4.33 mg/dL 0.57-1.25 GLUCOSE RANDOM (BEAKER) (test dgfn=778) 134 mg/dL 70-105 CALCIUM (BEAKER) (test oklh=542) 9.1 mg/dL 8.4-10.2 EGFR (BEAKER) (test aroh=4089) 10 mL/min/1.73 sq m ESTIMATED GFR IS NOT ACCURATE CREATININE CLEARANCE IN PREDICTING GLOMERULAR FILTRATION RATE. ESTIMATED GFR IS NOT APPLICABLE FOR DIALYSIS PATIENTS. [id number] 20:32:00* Test Item Value Reference Range Comments PHOSPHORUS (BEAKER) (test vrlz=779) 3.9 mg/dL 2.3-4.7 [id number] 20:32:00* Test Item Value Reference Range Comments MAGNESIUM (BEAKER) (test vpqg=266) 1.7 mg/dL 1.6-2.6 BLOOD GAS, [id number] 20:17:00* Test Item Value Reference Range Comments PH ARTERIAL (BEAKER) (test wuen=090) 7.62 7.35-7.45 PCO2 ARTERIAL (BEAKER) (test vmtd=093) 18 mmHg 35-45 PO2 ARTERIAL (BEAKER) (test kokw=551) 119 mmHg 80-90 O2 SATURATION ARTERIAL (BEAKER) (test xcyh=107) 99.0 % 96.0-97.0 HCO3 ARTERIAL (BEAKER) (test hgua=959) 18 mmol/L 21-29 BASE EXCESS ARTERIAL (BEAKER) (test mqir=366) -1.8 mmol/L -2.0-3.0 PATIENT TEMPERATURE (BEAKER) (test wbfq=4449) 37.0 C FIO2 (BEAKER) (test adbd=6248) 36.0 % POCT-GLUCOSE [id number] 17:59:00* Test Item Value Reference Range Comments POC-GLUCOSE METER (BEAKER) (test fotj=5353) 131 mg/dL 70-110 TESTED AT [facility] [address] [facility] [address] BLOOD GAS, [id number] 16:21:00* Test Item Value Reference Range Comments PH ARTERIAL (BEAKER) (test llzu=694) 7.52 7.35-7.45 PCO2 ARTERIAL (BEAKER) (test pwsq=780) 29 mmHg 35-45 PO2 ARTERIAL (BEAKER) (test zdeq=469) 101 mmHg 80-90 O2 SATURATION ARTERIAL (BEAKER) (test afwi=659) 98.2 % 96.0-97.0 HCO3 ARTERIAL (BEAKER) (test ftst=157) 23 mmol/L 21-29 BASE EXCESS ARTERIAL (BEAKER) (test jngn=763) 0.6 mmol/L -2.0-3.0 PATIENT TEMPERATURE (BEAKER) (test yson=8142) 36.8 C FIO2 (BEAKER) (test dypp=5124) 36.0 % CMV PCR, [id number] 15:01:00* Test Item Value Reference Range Comments CMV VIRAL LOAD - NEGATIVE (BEAKER) (test gvut=6510) Negative or below the linear range of the assay (<375 copies/mL) Cytomegalovirus (CMV) infection can cause significant disease in immunosuppresse d patients. However, it is common for CMV to manifest as a limited infection whi ch is of no clinical significance in immunosuppressed patients or in healthy ind ividuals.Viral load measurements are helpful to identify clinical [...] chain reaction and fluorescent monitoring of a s [employer] hybridized probe. Genetic variation and other factors can affect the acc uracy of nucleic acid testing. Therefore, the results should be interpreted in l ight of clinical data. A negative result may not exclude the presence of CMV dis ease.This test was developed and its performance characteristics determined by [facility] rom[facility] Pathology Department, Section of Molecular Patholog y. It has not been cleared or approved by the U.S. Food and Drug Administration (FDA), since FDA approval is not required for clinical use of the test. Validati on was done as required by The Clinical Laboratory Improvement Amendments of 198 8.HEMOGLOBIN AND [id number] 14:49:00* Test Item Value Reference Range Comments HEMOGLOBIN (BEAKER) (test vpna=412) 9.3 GM/DL 11.2-15.7 HEMATOCRIT (BEAKER) (test aueh=631) 28.8 % 34.1-44.9 BLOOD GAS, [id number] 14:48:00* Test Item Value Reference Range Comments PH ARTERIAL (BEAKER) (test rayv=721) 7.53 7.35-7.45 PCO2 ARTERIAL (BEAKER) (test eapi=894) 26 mmHg 35-45 PO2 ARTERIAL (BEAKER) (test rjwp=403) 125 mmHg 80-90 O2 SATURATION ARTERIAL (BEAKER) (test edbe=938) 98.9 % 96.0-97.0 HCO3 ARTERIAL (BEAKER) (test wzcb=272) 21 mmol/L 21-29 BASE EXCESS ARTERIAL (BEAKER) (test amjd=269) -0.9 mmol/L -2.0-3.0 PATIENT TEMPERATURE (BEAKER) (test kyhw=1414) 36.5 C FIO2 (BEAKER) (test hubr=7681) 70.0 % CT, BRAIN, WITHOUT [id number] 12:17:00Referring: Dr. Lazarus Sauceda FINAL REPORT CT Head without contrast CLINICAL HISTORY: E ncephalopathy TECHNIQUE: Contiguous axial images through the head without contra st. This exam was performed according to the departmental dose optimization prog dudley which includes automated exposure control, adjustment of the mA and/or kV ac cording to the patient size, and/or use of an iterative reconstruction technique . COMPARISON: 01/14/2017 FINDINGS: There is no CT evidence of acute infarct or in tracranial hemorrhage. Chronic infarcts of the bilateral caudate heads are again seen. Small chronic bilateral cerebellar infarcts are again seen. There is joanna ventricular and subcortical white matter hypodensity which is nonspecific but co mpatible with chronic microvascular ischemic change. There are atherosclerotic c alcifications of the intracranial circulation. There is generalized parenchymal volume loss without hydrocephalus, midline shift, or apparent mass effect. There are no extra-axial fluid collections. The skull is intact. There are air-fluid levels in the paranasal sinuses with support tubing in place. IMPRESSION: No CT evidence of acute infarct, hemorrhage, or hydrocephalus. 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 Signed: Kristine Ruiz MDReport Veri fied Date/Time: 10/03/2017 12:17:19 Reading Location: [facility] C013V Neuro [facility] Room P M POCT-GLUCOSE [id number] 12:16:00* Test Item Value Reference Range Comments POC-GLUCOSE METER (BEAKER) (test cwni=9188) 141 mg/dL 70-110 TESTED AT [facility] [address] [facility] [address] CBC W/PLT COUNT & AUTO [id number] 10:59:00* Test Item Value Reference Range Comments WHITE BLOOD CELL COUNT (BEAKER) (test iuhv=930) 15.5 K/ L 3.5-10.5 RED BLOOD CELL COUNT (BEAKER) (test adzu=669) 2.78 M/ L 3.93-5.22 HEMOGLOBIN (BEAKER) (test ldrj=936) 9.0 GM/DL 11.2-15.7 HEMATOCRIT (BEAKER) (test koie=988) 27.4 % 34.1-44.9 MEAN CORPUSCULAR VOLUME (BEAKER) (test ltbj=864) 98.6 fL 79.4-94.8 MEAN CORPUSCULAR HEMOGLOBIN (BEAKER) (test lqah=679) 32.4 pg 25.6-32.2 MEAN CORPUSCULAR HEMOGLOBIN CONC (BEAKER) (test pbwc=500) 32.8 GM/DL 32.2-35.5 RED CELL DISTRIBUTION WIDTH (BEAKER) (test opxu=665) 18.6 % 11.7-14.4 PLATELET COUNT (BEAKER) (test tnjp=014) 208 K/CU MM 150-450 MEAN PLATELET VOLUME (BEAKER) (test lolk=676) 9.7 fL 9.4-12.3 NUCLEATED RED BLOOD CELLS (BEAKER) (test qpmi=686) 0 /100 WBC 0-0 IMMATURE GRANULOCYTES-RELATIVE PERCENT (BEAKER) (test vdat=5950) 1 % 0-1 (MANUAL DIFFERENTIAL)2017-10-03 10:59:00* Test Item Value Reference Range Comments NEUTROPHILS - REL (DIFF) (BEAKER) (test wemu=5391) 82 % LYMPHOCYTES - REL (DIFF) (BEAKER) (test nsjj=3809) 10 % MONOCYTES - REL (DIFF) (BEAKER) (test zvps=0382) 3 % BANDS - REL (DIFF) (BEAKER) (test iiyr=5241) 5 % 0-10 NEUTROPHILS - ABS (DIFF) (BEAKER) (test ovuc=9999) 12.71 K/ L 1.80-8.00 LYMPHOCYTES - ABS (DIFF) (BEAKER) (test uitl=4620) 1.55 K/ L 1.48-4.50 MONOCYTES - ABS (DIFF) (BEAKER) (test hlak=0469) 0.47 K/ L 0.00-1.30 BANDS-ABS (DIFF) (BEAKER) (test jdfm=6733) 0.8 K/ L 0.0-0.8 TOTAL COUNTED (BEAKER) (test wahq=0133) 100 BANDS + SEGMENTED NEUTROPHILS (BEAKER) (test yuzg=7742) 13.49 WBC MORPHOLOGY (BEAKER) (test mhxa=815) Normal PLT MORPHOLOGY (BEAKER) (test vqou=372) Normal RBC MORPHOLOGY (BEAKER) (test irny=881) Normal TACROLIMUS [id number] 10:14:00* Test Item Value Reference Range Comments TACROLIMUS BLOOD (BEAKER) (test acia=049) 3.9 ng/mL 10.0-20.0 RESPIRATORY PANEL [id number] 09:04:00* Test Item Value Reference Range Comments HUMAN METAPNEUMOVIRUS (BEAKER) (test ohbb=9634) Not detected Not detected, Inconclusive RHINOVIRUS (BEAKER) (test mkyi=9702) Not detected Not detected, Inconclusive INFLUENZA A (BEAKER) (test cdyk=1274) Not detected Not detected, Inconclusive INFLUENZA A SUBTYPE H1 (BEAKER) (test fexf=1578) Not detected Not detected, Inconclusive INFLUENZA A SUBTYPE H3 (BEAKER) (test ptqx=3862) Not detected Not detected, Inconclusive INFLUENZA A SUBTYPE H1-2009 (BEAKER) (test exja=0149) Not detected Not detected, Inconclusive INFLUENZA B (BEAKER) (test dykq=4121) Not detected Not detected, Inconclusive RESPIRATORY SYNCYTIAL VIRUS (BEAKER) (test meyb=3103) Detected Not detected, Inconclusive Assay is not able differentiate between RSV A and RSV B PARAINFLUENZA VIRUS 1 (BEAKER) (test wudv=9725) Not detected Not detected, Inconclusive PARAINFLUENZA VIRUS 2 (BEAKER) (test hxgt=4886) Not detected Not detected, Inconclusive PARAINFLUENZA VIRUS 3 (BEAKER) (test smco=9567) Not detected Not detected, Inconclusive PARAINFLUENZA VIRUS 4 (BEAKER) (test wsxt=2895) Not detected Not detected, Inconclusive ADENOVIRUS (BEAKER) (test sgxb=3114) Not detected Not detected, Inconclusive CORONAVIRUS 229E (BEAKER) (test ywps=7207) Not detected Not detected, Inconclusive CORONAVIRUS HKU1 (BEAKER) (test oupc=6230) Not detected Not detected, Inconclusive CORONAVIRUS NL63 (BEAKER) (test perq=0597) Not detected Not detected, Inconclusive CORONAVIRUS OC43 (BEAKER) (test cbzl=7668) Not detected Not detected, Inconclusive BORDETELLA PERTUSSIS (BEAKER) (test dzia=1925) Not detected Not detected, Inconclusive CHLAMYDOPHILA PNEUMONIAE (BEAKER) (test oqnh=7061) Not detected Not detected, Inconclusive MYCOPLASMA PNEUMONIAE (BEAKER) (test qtfl=2991) Not detected Not detected, Inconclusive URINE [id number] 08:48:00* Test Item Value Reference Range Comments CULTURE (BEAKER) (test vpdp=1525) No growth BASIC METABOLIC [id number] 08:07:00* Test Item Value Reference Range Comments SODIUM (BEAKER) (test dnbb=126) 137 meq/L 136-145 POTASSIUM (BEAKER) (test oylg=440) 4.0 meq/L 3.5-5.1 CHLORIDE (BEAKER) (test msjv=762) 99 meq/L 98-107 CO2 (BEAKER) (test veuy=104) 22 meq/L 22-29 BLOOD UREA NITROGEN (BEAKER) (test palb=420) 26 mg/dL 7-21 CREATININE (BEAKER) (test wlne=610) 3.34 mg/dL 0.57-1.25 GLUCOSE RANDOM (BEAKER) (test mayo=947) 193 mg/dL 70-105 CALCIUM (BEAKER) (test imqg=440) 9.0 mg/dL 8.4-10.2 EGFR (BEAKER) (test izla=1991) 14 mL/min/1.73 sq m ESTIMATED GFR IS NOT ACCURATE CREATININE CLEARANCE IN PREDICTING GLOMERULAR FILTRATION RATE. ESTIMATED GFR IS NOT APPLICABLE FOR DIALYSIS PATIENTS. [id number] 08:02:00* Test Item Value Reference Range Comments PHOSPHORUS (BEAKER) (test gthv=804) 4.7 mg/dL 2.3-4.7 [id number] 08:02:00* Test Item Value Reference Range Comments MAGNESIUM (BEAKER) (test eykg=089) 1.6 mg/dL 1.6-2.6 LACTIC ACID, ARTERIAL, WHOLE [id number] 07:58:00* Test Item Value Reference Range Comments LACTATE BLOOD ARTERIAL (2) (BEAKER) (test sxwy=5627) 1.2 mmol/L 0.5-2.2 Effective 11/26/2015: Units/Reference Range ChangeNew: 0.5-2.2 mmol/L Previous: 5 -20 mg/dLRAD, CHEST, 1 VIEW, NON [id number] 07:57:00Referring: Dr. Lazarus Medeiros for exam:->pulmonary congestionShould this be performed at the bedside?->YesFINAL REPORT Chest one view INDICATION: Pulmonary congestion COMPARISON: 10/02/2017 IMPRESSION: Support devices are stable. Median sternotomy changes and a mediastinal vascular stent are again noted. Heart size is at the upper limit of normal. The aorta remains ectatic/tortuous. Increased asymmetric right lung opacities suggest developing pneumonitis and/or aspiration. There is mild pulmonary vascular congestion. There is mild costophrenic angle blunting. No pneumothorax is seen. Signed: Mario Castro MDReport Verified Date/Time: 10/03/2017 07:57:36 Reading Location: [facility] Radiology Reading Room /[id number] 07:48:00* Test Item Value Reference Range Comments PROTIME (BEAKER) (test rshf=065) 15.5 seconds 11.7-14.7 INR (BEAKER) (test vdbo=514) 1.2 <=5.9 PARTIAL THROMBOPLASTIN TIME (BEAKER) (test wdse=456) 37.3 seconds 22.5-36.0 RECOMMENDED COUMADIN/WARFARIN INR THERAPY RANGESSTANDARD DOSE: 2.0 - 3.0 Inclu linette: PROPHYLAXIS for venous thrombosis, systemic embolization; TREATMENT for kimmy ous thrombosis and/or pulmonary embolus.HIGH RISK: Target INR is 2.5-3.5 for pat ients with mechanical heart valves.BLOOD GAS, [id number] 05:56:00* Test Item Value Reference Range Comments PH ARTERIAL (BEAKER) (test fxeo=152) 7.44 7.35-7.45 PCO2 ARTERIAL (BEAKER) (test twfk=000) 36 mmHg 35-45 PO2 ARTERIAL (BEAKER) (test qmcs=155) 112 mmHg 80-90 O2 SATURATION ARTERIAL (BEAKER) (test bgzg=361) 98.3 % 96.0-97.0 HCO3 ARTERIAL (BEAKER) (test csbb=068) 24 mmol/L 21-29 BASE EXCESS ARTERIAL (BEAKER) (test mhha=222) 0.2 mmol/L -2.0-3.0 PATIENT TEMPERATURE (BEAKER) (test yxrp=1977) 37.1 C FIO2 (BEAKER) (test zmso=0341) 30.0 % HEPATIC FUNCTION [id number] 05:19:00* Test Item Value Reference Range Comments TOTAL PROTEIN (BEAKER) (test udda=384) 6.2 gm/dL 6.0-8.3 ALBUMIN (BEAKER) (test otic=5949) 3.2 g/dL 3.5-5.0 BILIRUBIN TOTAL (BEAKER) (test abgl=865) 0.6 mg/dL 0.2-1.2 BILIRUBIN DIRECT (BEAKER) (test tlex=692) 0.3 mg/dL 0.1-0.5 ALKALINE PHOSPHATASE (BEAKER) (test bkml=806) 113 U/L 40-150 AST (SGOT) (BEAKER) (test yxsy=869) 29 U/L 5-34 ALT (SGPT) (BEAKER) (test prgh=708) 20 U/L 6-55 POCT-GLUCOSE [id number] 00:42:00* Test Item Value Reference Range Comments POC-GLUCOSE METER (BEAKER) (test hyww=3967) 143 mg/dL 70-110 TESTED AT [address] [address] HEMOGLOBIN AND [id number] 20:37:00* Test Item Value Reference Range Comments HEMOGLOBIN (BEAKER) (test tpkx=788) 9.3 GM/DL 11.2-15.7 HEMATOCRIT (BEAKER) (test vasn=991) 28.9 % 34.1-44.9 POCT-GLUCOSE [id number] 20:32:00* Test Item Value Reference Range Comments POC-GLUCOSE METER (BEAKER) (test yfai=7832) 97 mg/dL 70-110 TESTED AT [address] [address] RAD, CHEST, 1 VIEW, NON [id number] 19:59:00Referring: Dr. Lazarus Medeiros for exam:->aspirationShould this be performed at the bedside?->Yes FINAL REPORT RAD, CHEST, 1 VIEW, NON DEPT INDICATION: asp iration COMPARISON: 12 hours prior FINDINGS: Portable frontal view of the chest. IMPRESSION: Support Lines: Nasogastric tube is present with the side-port we ll beyond the GE junction. Remaining support hardware is stable. Lungs and pleur a: Interstitial congestion has not changed. There is no new focal consolidation. Trace bilateral pleural effusions noted. No pneumothorax.Heart and mediastinum: Stable contours. Stable surgical changes.Additional findings: None. Signed: Olivier coates JR, Robert MDReport Verified Date/Time: 10/02/2017 19:59:41 Reading Location: [address] Reading Room -GLUCOSE [id number] 18:00:00 * Test Item Value Reference Range Comments POC-GLUCOSE METER (BEAKER) (test fbvb=4939) 144 mg/dL 70-110 TESTED AT [address] [address] HEMOGLOBIN AND [id number] 14:26:00* Test Item Value Reference Range Comments HEMOGLOBIN (BEAKER) (test ulcu=879) 10.6 GM/DL 11.2-15.7 HEMATOCRIT (BEAKER) (test wijg=229) 32.6 % 34.1-44.9 Post transfusionTACROLIMUS [id number] 14:24:00* Test Item Value Reference Range Comments TACROLIMUS BLOOD (BEAKER) (test wxzm=893) < ng/mL 10.0-20.0 POCT-GLUCOSE [id number] 13:14:00* Test Item Value Reference Range Comments POC-GLUCOSE METER (BEAKER) (test huwi=3075) 105 mg/dL 70-110 TESTED AT [address] [address] POCT-GLUCOSE [id number] 08:38:00* Test Item Value Reference Range Comments POC-GLUCOSE METER (BEAKER) (test zoun=2948) 82 mg/dL 70-110 TESTED AT [facility] [address] [facility] [address] VANCOMYCIN LEVEL, [id number] 08:14:00* Test Item Value Reference Range Comments VANCOMYCIN RANDOM (BEAKER) (test mnyt=589) 15.6 ug/mL Reference Range: No NormalsRAD, CHEST, 1 VIEW, NON [id number] 08:04:00 Referring: Dr. Lazarus Medeiros for exam:->pulmonary congestionShould this be performed at the bedside?->YesFINAL REPORT AP view of the chest dated 10/02/2017 CLINICAL INFORMATION: pulmonary congestion Comment: Heart is normal in size. Pulmonary vasculature is unremarkable. Lungs are clear. No pulmonary infiltrate or pleural effusion is present. Endotracheal tube and left IJ central venous catheter remain in place. Impression: No interval change. Signed: Celina Olsonort Verified Date/Time: 10/02/2017 08:04:11 Reading Location: [address] Body Reading Room GLOBIN AND HEMATOCRIT 2017-10-02 08:01:00* Test Item Value Reference Range Comments HEMOGLOBIN (BEAKER) (test pahj=345) 7.3 GM/DL 11.2-15.7 HEMATOCRIT (BEAKER) (test cujw=735) 23.4 % 34.1-44.9 RAD, CHEST, 1 VIEW, NON [id number] 07:36:00Referring: Dr. Lazarus Medeiros for exam:->eval pulmonary congestionShould this be performed at the bedside?->YesFINAL REPORT AP view of the chest dated 10/02/2017 COMPARISON: 10/01/2017 CLINICAL INFORMATION: eval pulmonary congestion Comment: Heart is normal in size. Pulmonary vasculature is unremarkable. Lungs are clear. No pulmonary infiltrate or pleural effusion is present. Endotracheal tube and left IJ central venous catheter remain in place. Impression: No interval change. Signed: Celina Olsoneport Verified Date/Time: 10/02/2017 07:36:50 Reading Location: [address] Body Reading Room IUM, [id number] 06:58:00* Test Item Value Reference Range Comments CALCIUM IONIZED (BEAKER) (test nbkr=695) 1.02 mmol/L 1.12-1.27 PH, BLOOD (BEAKER) (test qmch=8955) 7.53 BASIC METABOLIC [id number] 06:10:00* Test Item Value Reference Range Comments SODIUM (BEAKER) (test egsi=188) 136 meq/L 136-145 POTASSIUM (BEAKER) (test yoaw=258) 5.5 meq/L 3.5-5.1 CHLORIDE (BEAKER) (test vcbd=898) 102 meq/L 98-107 CO2 (BEAKER) (test lnna=466) 24 meq/L 22-29 BLOOD UREA NITROGEN (BEAKER) (test lvtg=604) 47 mg/dL 7-21 CREATININE (BEAKER) (test nmqz=637) 4.04 mg/dL 0.57-1.25 GLUCOSE RANDOM (BEAKER) (test dnec=130) 88 mg/dL 70-105 CALCIUM (BEAKER) (test kqsu=380) 8.9 mg/dL 8.4-10.2 EGFR (BEAKER) (test cgzu=4043) 11 mL/min/1.73 sq m ESTIMATED GFR IS NOT ACCURATE CREATININE CLEARANCE IN PREDICTING GLOMERULAR FILTRATION RATE. ESTIMATED GFR IS NOT APPLICABLE FOR DIALYSIS PATIENTS. [id number] 05:52:00* Test Item Value Reference Range Comments MAGNESIUM (BEAKER) (test zicq=600) 1.8 mg/dL 1.6-2.6 HEPATIC FUNCTION [id number] 05:52:00* Test Item Value Reference Range Comments TOTAL PROTEIN (BEAKER) (test tiqr=004) 5.7 gm/dL 6.0-8.3 ALBUMIN (BEAKER) (test irmv=7644) 3.1 g/dL 3.5-5.0 BILIRUBIN TOTAL (BEAKER) (test fgib=629) 0.4 mg/dL 0.2-1.2 BILIRUBIN DIRECT (BEAKER) (test ycuq=370) 0.2 mg/dL 0.1-0.5 ALKALINE PHOSPHATASE (BEAKER) (test guhk=501) 101 U/L 40-150 AST (SGOT) (BEAKER) (test gaci=552) 30 U/L 5-34 ALT (SGPT) (BEAKER) (test pgim=148) 19 U/L 6-55 CBC W/PLT COUNT & AUTO [id number] 05:28:00* Test Item Value Reference Range Comments WHITE BLOOD CELL COUNT (BEAKER) (test fimz=297) 7.5 K/ L 3.5-10.5 RED BLOOD CELL COUNT (BEAKER) (test syke=155) 2.39 M/ L 3.93-5.22 HEMOGLOBIN (BEAKER) (test diwd=600) 7.3 GM/DL 11.2-15.7 HEMATOCRIT (BEAKER) (test watr=278) 23.8 % 34.1-44.9 MEAN CORPUSCULAR VOLUME (BEAKER) (test cmhe=378) 99.6 fL 79.4-94.8 MEAN CORPUSCULAR HEMOGLOBIN (BEAKER) (test txke=305) 30.5 pg 25.6-32.2 MEAN CORPUSCULAR HEMOGLOBIN CONC (BEAKER) (test kxla=088) 30.7 GM/DL 32.2-35.5 RED CELL DISTRIBUTION WIDTH (BEAKER) (test vphk=643) 18.0 % 11.7-14.4 PLATELET COUNT (BEAKER) (test snhg=694) 151 K/CU MM 150-450 MEAN PLATELET VOLUME (BEAKER) (test znvb=842) 9.5 fL 9.4-12.3 NUCLEATED RED BLOOD CELLS (BEAKER) (test dzba=323) 0 /100 WBC 0-0 NEUTROPHILS RELATIVE PERCENT (BEAKER) (test xfvk=993) 54 % LYMPHOCYTES RELATIVE PERCENT (BEAKER) (test cdik=611) 33 % MONOCYTES RELATIVE PERCENT (BEAKER) (test ywml=185) 9 % EOSINOPHILS RELATIVE PERCENT (BEAKER) (test cnlg=481) 2 % BASOPHILS RELATIVE PERCENT (BEAKER) (test ypih=791) 0 % NEUTROPHILS ABSOLUTE COUNT (BEAKER) (test pxtm=248) 4.08 K/ L 1.56-6.13 LYMPHOCYTES ABSOLUTE COUNT (BEAKER) (test zhll=928) 2.50 K/ L 1.18-3.74 MONOCYTES ABSOLUTE COUNT (BEAKER) (test xdvd=635) 0.70 K/ L 0.24-0.36 EOSINOPHILS ABSOLUTE COUNT (BEAKER) (test gxvm=424) 0.17 K/ L 0.04-0.36 BASOPHILS ABSOLUTE COUNT (BEAKER) (test pduo=203) 0.03 K/ L 0.01-0.08 IMMATURE GRANULOCYTES-RELATIVE PERCENT (BEAKER) (test dkvv=0571) 1 % 0-1 PROTHROMBIN [id number] 05:19:00* Test Item Value Reference Range Comments PROTIME (BEAKER) (test jmhz=980) 15.0 seconds 11.7-14.7 INR (BEAKER) (test ykar=644) 1.2 <=5.9 RECOMMENDED COUMADIN/WARFARIN INR THERAPY RANGESSTANDARD DOSE: 2.0 - 3.0 Inclu linette: PROPHYLAXIS for venous thrombosis, systemic embolization; TREATMENT for kimmy ous thrombosis and/or pulmonary embolus.HIGH RISK: Target INR is 2.5-3.5 for pat ients with mechanical heart valves.BLOOD GAS, [id number] 05:14:00* Test Item Value Reference Range Comments PH ARTERIAL (BEAKER) (test wlep=576) 7.56 7.35-7.45 PCO2 ARTERIAL (BEAKER) (test mcaa=764) 28 mmHg 35-45 PO2 ARTERIAL (BEAKER) (test ibam=997) 239 mmHg 80-90 O2 SATURATION ARTERIAL (BEAKER) (test yakb=649) 99.7 % 96.0-97.0 HCO3 ARTERIAL (BEAKER) (test aioq=523) 25 mmol/L 21-29 BASE EXCESS ARTERIAL (BEAKER) (test gmhm=501) 3.6 mmol/L -2.0-3.0 PATIENT TEMPERATURE (BEAKER) (test ceil=4485) 36.8 C FIO2 (BEAKER) (test sfgg=8948) 40.0 % POCT-GLUCOSE [id number] 00:23:00* Test Item Value Reference Range Comments POC-GLUCOSE METER (BEAKER) (test xolg=5230) 101 mg/dL 70-110 [address]ED AT [address] [address] POCT-GLUCOSE [id number] 18:32:00* Test Item Value Reference Range Comments POC-GLUCOSE METER (BEAKER) (test foyf=6392) 100 mg/dL 70-110 TESTED AT [facility] [address] [facility] [address] BLOOD GAS, [id number] 16:15:00* Test Item Value Reference Range Comments PH ARTERIAL (BEAKER) (test jewy=036) 7.48 7.35-7.45 PCO2 ARTERIAL (BEAKER) (test rdgf=230) 37 mmHg 35-45 PO2 ARTERIAL (BEAKER) (test jrdu=049) 269 mmHg 80-90 O2 SATURATION ARTERIAL (BEAKER) (test zmgv=411) 99.7 % 96.0-97.0 HCO3 ARTERIAL (BEAKER) (test yprw=896) 26 mmol/L 21-29 BASE EXCESS ARTERIAL (BEAKER) (test mwnd=390) 3.1 mmol/L -2.0-3.0 PATIENT TEMPERATURE (BEAKER) (test pcgg=7019) 38.0 C FIO2 (BEAKER) (test copm=2312) 100.0 % TACROLIMUS [id number] 13:32:00* Test Item Value Reference Range Comments TACROLIMUS BLOOD (BEAKER) (test ibnw=455) < ng/mL 10.0-20.0 POCT-GLUCOSE [id number] 13:14:00* Test Item Value Reference Range Comments POC-GLUCOSE METER (BEAKER) (test cwag=6809) 131 mg/dL 70-110 TESTED AT [address] [address] [address], CHEST, WITH [id number] 11:26:00Referring: Dr. Lazarus Sauceda FINAL REPORT CT chest, abdomen, and pelvis with contrast. INDICATION: obstruction (N/V), fevers, hemoptysis COMPARISON: 08/15/2017, 016, 06/05/2013, and 05/07/2012 TECHNIQUE: Multiple contiguous transaxial images of the chest, abdomen, and pelvis were obtained after the administration of int ravenous contrast. This exam was performed according to our departmental dose op timization program which includes automated exposure control, adjustment of the mA and/or kV according to patient size and/or use of iterative reconstructive te chnique. FINDINGS: There is no pneumothorax, pulmonary edema or pleural effusion . There is bibasilar atelectasis with more confluent airspace opacities in the l eft lower lobe medially measuring 2.4 cm, suggestive of focal pneumonitis, possi vivian from aspiration. Mild perihilar groundglass opacities are suggestive of mild pulmonary edema or atypical pneumonitis. In the left lower lobe, there is a 3 mm subpleural nodule which appears similar to before. The major airways are clear. Endotracheal tube in the thoracic inlet. The visualized portion of the thyroid gland appear unremarkable. There is no hilar, mediastinal or axillary lymphaden opathy. There is no pericardial effusion. Heart size appears prominent. Atherosc lerotic vascular calcifications are seen with tortuous appearance of the aorta. The liver, spleen, pancreas, and adrenal glands are unremarkable. The gallbladde r is absent. There is no biliary dilatation. The stomach and duodenum are unrema rkable. Both kidneys are unremarkable. The urinary bladder demonstrates a Hercules catheter in position with nonspecific air. The uterus is absent. No pelvic jenniffer s are seen. There is no free fluid in the pelvis. There is wall thickening of th e ascending colon, hepatic flexure and transverse colon, suggestive of nonspecif ic colitis of infectious, inflammatory or vascular etiology. The appendix is not clearly visualized. There is no bowel obstruction or perforation. There is no f luid collection or lymphadenopathy. Extensive vascular calcifications are seen. The osseous structures demonstrate degenerative changes. There is a chronic frac ture of the right greater trochanter. Calcified bilateral gluteal subcutaneous l esions are suggestive of prior injections. Bones are osteopenic. There are age i ndeterminate compression fractures of L4, L3, and T6, most advanced at L4. IMPRE SSION:1. CT findings suggestive of right-sided colitis as above.2. Left basilar opacities suggestive of pneumonitis. Mild perihilar opacities are suggestive of mild pulmonary edema or atypical pneumonitis.3. Osteopenia and age indeterminate compression fractures of the thoracic and lumbar spine as above. Signed: Panda Leal MDReport Verified Date/Time: 10/01/2017 11:26:00 Reading Location: [address] Ortho Consult Reading Room , [id number] 11:26:00Referring: Dr. Qiu MurthyFINAL REPORT CT chest, abdomen, and pelvis with [...] There is no hilar, mediastinal or axillary lymphaden opathy. There is no pericardial effusion. Heart size appears prominent. Atherosc lerotic vascular calcifications are seen with tortuous appearance of the aorta. The liver, spleen, pancreas, and adrenal glands are unremarkable. The gallbladde r is absent. There is no biliary dilatation. The stomach and duodenum are unrema rkable. Both kidneys are unremarkable. The urinary bladder demonstrates a Hercules catheter in position with nonspecific air. The uterus is absent. No pelvic jenniffer s are seen. There is no free fluid in the pelvis. There is wall thickening of th e ascending colon, hepatic flexure and transverse colon, suggestive of nonspecif ic colitis of infectious, inflammatory or vascular etiology. The appendix is not clearly visualized. There is no bowel obstruction or perforation. There is no f luid collection or lymphadenopathy. Extensive vascular calcifications are seen. The osseous structures demonstrate degenerative changes. There is a chronic frac ture of the right greater trochanter. Calcified bilateral gluteal subcutaneous l esions are suggestive of prior injections. Bones are osteopenic. There are age i ndeterminate compression fractures of L4, L3, and T6, most advanced at L4. IMPRE SSION:1. CT findings suggestive of right-sided colitis as above.2. Left basilar opacities suggestive of pneumonitis. Mild perihilar opacities are suggestive of mild pulmonary edema or atypical pneumonitis.3. Osteopenia and age indeterminate compression fractures of the thoracic and lumbar spine as above. Signed: Panda Leal MDReport Verified Date/Time: 10/01/2017 11:26:00 Reading Location: [facility] C013X Ortho Consult Reading Room OLIMUS [id number] 10:57:00* Test Item Value Reference Range Comments TACROLIMUS BLOOD (BEAKER) (test crmu=093) < ng/mL 10.0-20.0 RAD, CHEST, 1 VIEW, NON [id number] 10:37:00Referring: Dr. Lazarus Medeiros for exam:->line placementShould this be performed at the bedside?-> YesFINAL REPORT Comparison: 10/01/2017 at 6:36 AM TECHNIQUE: Single view of the chest FINDINGS: Tip of left internal jugular central line projects at the cavoatrial junction. Tip of endotracheal tube projects 5.5 cm above the ted. No other significant change from previous. No pneumothorax bilaterally. Signed: Kyle Farr MDReport Verified Date/Time: 10/01/2017 10:37:56 Reading Location: [facility] C013T Transitional Reading Room 2017-10-01 08:59:00* Test Item Value Reference Range Comments PARTIAL THROMBOPLASTIN TIME (BEAKER) (test dqma=830) 31.1 seconds 22.5-36.0 PROTHROMBIN TIME/[id number] 08:58:00* Test Item Value Reference Range Comments PROTIME (BEAKER) (test lhoo=060) 14.2 seconds 11.7-14.7 INR (BEAKER) (test itjd=322) 1.1 <=5.9 RECOMMENDED COUMADIN/WARFARIN INR THERAPY RANGESSTANDARD DOSE: 2.0 - 3.0 Inclu linette: PROPHYLAXIS for venous thrombosis, systemic embolization; TREATMENT for kimmy ous thrombosis and/or pulmonary embolus.HIGH RISK: Target INR is 2.5-3.5 for pat ients with mechanical heart valves.[id number] 08:58:00* Test Item Value Reference Range Comments FIBRINOGEN LEVEL (BEAKER) (test jhdk=381) 531 mg/dl 225-434 PLATELET [id number] 08:40:00* Test Item Value Reference Range Comments PLATELET COUNT (BEAKER) (test mrei=710) 131 K/CU MM 150-450 POCT-GLUCOSE [id number] 08:03:00* Test Item Value Reference Range Comments POC-GLUCOSE METER (BEAKER) (test boal=3031) 150 mg/dL 70-110 TESTED AT [facility] [address] [facility] [address] LACTIC ACID, ARTERIAL, WHOLE [id number] 07:28:00* Test Item Value Reference Range Comments LACTATE BLOOD ARTERIAL (2) (BEAKER) (test hsfy=3965) 0.5 mmol/L 0.5-2.2 Effective 11/26/2015: Units/Reference Range ChangeNew: 0.5-2.2 mmol/L Previous: 5 -20 mg/dLRAD, CHEST, 1 VIEW, NON [id number] 06:47:00Referring: Dr. Lazarus Medeiros for exam:->eval pulmonary congestionShould this be performed at the bedside?->YesFINAL REPORT RAD, CHEST, 1 VIEW, NON DEPT INDICATION: eval pulmonary congestion COMPARISON: Chest x-ray 6 hours ago TECHNIQUE: Single frontal view of the chest. IMPRESSION:Cardiomediastinal silhouette within normal limits.Stable diffuse interstitial prominence which could reflect interstitial edema versus an interstitial pneumonitis.No acute osseous abnormality. Signed: Nicholas Little MDReport Verified Date/Time: 10/01/2017 06:47:11 Reading Location: [address] Ortho Consult Reading Room IUM, [id number] 06:32:00* Test Item Value Reference Range Comments CALCIUM IONIZED (BEAKER) (test idgm=619) 1.37 mmol/L 1.12-1.27 PH, BLOOD (BEAKER) (test zolf=3583) 7.45 RAD, ABDOMEN/KUB, 1 VIEW [id number] 06:28:00Referring: Dr. Lazarus Medeiros for exam:->n/v, evaluate for SBOShould this be performed at the bedside?->YesFINAL REPORT RAD, ABDOMEN/KUB, 1 VIEW AP CLINICAL INDICATION: "n/v, evaluate for SBO" COMPARISON: None TECHNIQUE: 2 frontal radiographs of the abdomen. IMPRESSION: Lung bases grossly clear.Cholecystectomy clips.Moderate colonic stool burden.Nonspecific nonobstructive bowel gas pattern.No pneumatosis or obvious pneumoperitoneum.No acute osseous abnormality. Signed: Nicholas Little MDReport Verified Date/Time: 10/01/2017 06:28:28 Reading Location: [address] Ortho Consult Reading Room C METABOLIC [id number] 05:02:00* Test Item Value Reference Range Comments SODIUM (BEAKER) (test atdk=530) 135 meq/L 136-145 POTASSIUM (BEAKER) (test cbca=145) 3.6 meq/L 3.5-5.1 CHLORIDE (BEAKER) (test otgz=005) 97 meq/L 98-107 CO2 (BEAKER) (test foje=327) 26 meq/L 22-29 BLOOD UREA NITROGEN (BEAKER) (test rnqq=812) 11 mg/dL 7-21 CREATININE (BEAKER) (test urdt=045) 1.38 mg/dL 0.57-1.25 GLUCOSE RANDOM (BEAKER) (test pqqz=482) 141 mg/dL 70-105 CALCIUM (BEAKER) (test wvip=302) 11.9 mg/dL 8.4-10.2 EGFR (BEAKER) (test ccrn=2431) 39 mL/min/1.73 sq m ESTIMATED GFR IS NOT ACCURATE CREATININE CLEARANCE IN PREDICTING GLOMERULAR FILTRATION RATE. ESTIMATED GFR IS NOT APPLICABLE FOR DIALYSIS PATIENTS. [id number] 05:00:00* Test Item Value Reference Range Comments MAGNESIUM (BEAKER) (test obrq=143) 1.9 mg/dL 1.6-2.6 HEPATIC FUNCTION [id number] 05:00:00* Test Item Value Reference Range Comments TOTAL PROTEIN (BEAKER) (test urze=691) 7.9 gm/dL 6.0-8.3 ALBUMIN (BEAKER) (test zdxn=6183) 4.1 g/dL 3.5-5.0 BILIRUBIN TOTAL (BEAKER) (test yaqa=062) 0.6 mg/dL 0.2-1.2 BILIRUBIN DIRECT (BEAKER) (test csyl=213) 0.3 mg/dL 0.1-0.5 ALKALINE PHOSPHATASE (BEAKER) (test phyn=501) 146 U/L 40-150 AST (SGOT) (BEAKER) (test ztoz=944) 43 U/L 5-34 ALT (SGPT) (BEAKER) (test tyag=780) 27 U/L 6-55 PROTHROMBIN [id number] 04:51:00* Test Item Value Reference Range Comments PROTIME (BEAKER) (test qavo=362) 13.5 seconds 11.7-14.7 INR (BEAKER) (test llsa=493) 1.0 <=5.9 RECOMMENDED COUMADIN/WARFARIN INR THERAPY RANGESSTANDARD DOSE: 2.0 - 3.0 Inclu linette: PROPHYLAXIS for venous thrombosis, systemic embolization; TREATMENT for kimmy ous thrombosis and/or pulmonary embolus.HIGH RISK: Target INR is 2.5-3.5 for pat ients with mechanical heart valves.CBC W/PLT COUNT & AUTO [id number] 04:38:00* Test Item Value Reference Range Comments WHITE BLOOD CELL COUNT (BEAKER) (test rtep=829) 10.2 K/ L 3.5-10.5 RED BLOOD CELL COUNT (BEAKER) (test vbtt=746) 3.28 M/ L 3.93-5.22 HEMOGLOBIN (BEAKER) (test snnb=599) 10.2 GM/DL 11.2-15.7 HEMATOCRIT (BEAKER) (test ibzc=794) 32.4 % 34.1-44.9 MEAN CORPUSCULAR VOLUME (BEAKER) (test zrmm=870) 98.8 fL 79.4-94.8 MEAN CORPUSCULAR HEMOGLOBIN (BEAKER) (test nkbv=062) 31.1 pg 25.6-32.2 MEAN CORPUSCULAR HEMOGLOBIN CONC (BEAKER) (test qtqx=694) 31.5 GM/DL 32.2-35.5 RED CELL DISTRIBUTION WIDTH (BEAKER) (test klcb=019) 17.6 % 11.7-14.4 PLATELET COUNT (BEAKER) (test qufd=083) 166 K/CU MM 150-450 MEAN PLATELET VOLUME (BEAKER) (test qxhq=876) 9.0 fL 9.4-12.3 NUCLEATED RED BLOOD CELLS (BEAKER) (test cznm=708) 0 /100 WBC 0-0 NEUTROPHILS RELATIVE PERCENT (BEAKER) (test cynq=449) 69 % LYMPHOCYTES RELATIVE PERCENT (BEAKER) (test jvus=042) 23 % MONOCYTES RELATIVE PERCENT (BEAKER) (test lvlv=797) 6 % EOSINOPHILS RELATIVE PERCENT (BEAKER) (test zuhv=180) 1 % BASOPHILS RELATIVE PERCENT (BEAKER) (test yimd=947) 1 % NEUTROPHILS ABSOLUTE COUNT (BEAKER) (test fkol=564) 7.06 K/ L 1.56-6.13 LYMPHOCYTES ABSOLUTE COUNT (BEAKER) (test pjrp=809) 2.36 K/ L 1.18-3.74 MONOCYTES ABSOLUTE COUNT (BEAKER) (test pqdk=230) 0.60 K/ L 0.24-0.36 EOSINOPHILS ABSOLUTE COUNT (BEAKER) (test yyok=507) 0.10 K/ L 0.04-0.36 BASOPHILS ABSOLUTE COUNT (BEAKER) (test sfiu=814) 0.06 K/ L 0.01-0.08 IMMATURE GRANULOCYTES-RELATIVE PERCENT (BEAKER) (test jlop=5718) 0 % 0-1 HEPATITIS B SURFACE [id number] 01:26:00* Test Item Value Reference Range Comments HEPATITIS B SURFACE ANTIGEN (2) (BEAKER) (test vcyv=3970) Nonreactive Nonreactive BASIC METABOLIC [id number] 01:08:00* Test Item Value Reference Range Comments SODIUM (BEAKER) (test weac=781) 134 meq/L 136-145 POTASSIUM (BEAKER) (test fhpz=149) 6.7 meq/L 3.5-5.1 CHLORIDE (BEAKER) (test bomf=473) 103 meq/L 98-107 CO2 (BEAKER) (test xths=932) 17 meq/L 22-29 BLOOD UREA NITROGEN (BEAKER) (test ighe=387) 102 mg/dL 7-21 CREATININE (BEAKER) (test uipg=848) 7.14 mg/dL 0.57-1.25 GLUCOSE RANDOM (BEAKER) (test wuhk=210) 196 mg/dL 70-105 CALCIUM (BEAKER) (test neai=092) 9.0 mg/dL 8.4-10.2 EGFR (BEAKER) (test ivmm=6889) 6 mL/min/1.73 sq m ESTIMATED GFR IS NOT ACCURATE CREATININE CLEARANCE IN PREDICTING GLOMERULAR FILTRATION RATE. ESTIMATED GFR IS NOT APPLICABLE FOR DIALYSIS PATIENTS. [id number] 01:05:00* Test Item Value Reference Range Comments MAGNESIUM (BEAKER) (test zjlv=194) 2.0 mg/dL 1.6-2.6 URINALYSIS W/ [id number] 00:54:00* Test Item Value Reference Range Comments COLOR (BEAKER) (test lhxq=586) Yellow CLARITY (BEAKER) (test wutc=939) Clear SPECIFIC GRAVITY UA (BEAKER) (test qfgf=715) 1.012 1.001-1.035 PH UA (BEAKER) (test qfla=132) 7.5 5.0-8.0 PROTEIN UA (BEAKER) (test jutj=124) 300 mg/dL Negative GLUCOSE UA (BEAKER) (test mybk=011) Negative Negative KETONES UA (BEAKER) (test gkuj=176) Negative Negative BILIRUBIN UA (BEAKER) (test pebx=998) Negative Negative BLOOD UA (BEAKER) (test hrjy=489) Moderate Negative NITRITE UA (BEAKER) (test onyd=482) Negative Negative LEUKOCYTE ESTERASE UA (BEAKER) (test fgof=282) Negative Negative UROBILINOGEN UA (BEAKER) (test ttye=211) 0.2 mg/dL 0.2-1.0 RBC UA (BEAKER) (test uzur=475) 79 /HPF WBC UA (BEAKER) (test goyo=556) 2 /HPF BACTERIA (BEAKER) (test bnvh=083) Rare MUCUS (BEAKER) (test jrhs=9755) Rare SQUAMOUS EPITHELIAL (BEAKER) (test uyth=750) < /HPF SOURCE(BEAKER) (test myqr=8148) Urine, Hercules RAD, CHEST, 1 VIEW, NON [id number] 00:20:00Referring: Dr. Lazarus Medeiros for exam:->coughShould this be performed at the bedside?->YesFINAL REPORT RAD, CHEST, 1 VIEW, NON DEPT INDICATION: cough COMPARISON: August 15, 2017 FINDINGS: Portable frontal view of the chest. IMPRESSION: Support Lines: None. Lungs and pleura: Coarse interstitial markings suggesting edema. No focal consolidation or significant effusion. No pneumothor ax.Heart and mediastinum: Stable contours. Stable surgical changes.Additional fi ndings: Stable positioning of stent material above the level of the ted. Sign ed: JR Sasha, Marc Mg Verified Date/Time: 10/01/2017 00:20:31 R eizo Location: [address] Reading Room SSIUM-STAT [id number] 00:14:00* Test Item Value Reference Range Comments POTASSIUM (BEAKER) (test apgd=659) 6.5 meq/L 3.6-5.5 GLUCOSE-STAT [id number] 00:03:00* Test Item Value Reference Range Comments GLUCOSE RANDOM (BEAKER) (test ubar=142) 167 mg/dL 70-110 HGB/HCT (H&H) - STAT [id number] 00:03:00* Test Item Value Reference Range Comments HEMOGLOBIN (BEAKER) (test tszy=118) 10.9 g/dL 12.0-15.0 HEMATOCRIT (BEAKER) (test zcmq=685) 32.0 % 36.0-45.0 SODIUM NA-STAT [id number] 00:01:00* Test Item Value Reference Range Comments SODIUM (BEAKER) (test keat=452) 135 meq/L 135-148 CALCIUM, [id number] 23:59:00* Test Item Value Reference Range Comments CALCIUM IONIZED (BEAKER) (test ptnw=611) 1.14 mmol/L 1.12-1.27 PH, BLOOD (BEAKER) (test zqju=2522) 7.32 BLOOD GAS, [id number] 23:58:00* Test Item Value Reference Range Comments PH ARTERIAL (BEAKER) (test mcru=065) 7.36 7.35-7.45 PCO2 ARTERIAL (BEAKER) (test sdve=982) 37 mmHg 35-45 PO2 ARTERIAL (BEAKER) (test smqv=980) 168 mmHg 80-90 O2 SATURATION ARTERIAL (BEAKER) (test xtlf=920) 99.1 % 96.0-97.0 HCO3 ARTERIAL (BEAKER) (test kdla=346) 20 mmol/L 21-29 BASE EXCESS ARTERIAL (BEAKER) (test flav=546) -4.8 mmol/L -2.0-3.0 PATIENT TEMPERATURE (BEAKER) (test yttn=7775) 37.0 C FIO2 (BEAKER) (test belf=5205) 32.0 % BLOOD GAS, [id number] 23:58:00* Test Item Value Reference Range Comments PH VENOUS (BEAKER) (test gfza=208) 7.34 7.32-7.42 PCO2 VENOUS (BEAKER) (test oflr=385) 41 mmHg 41-51 PO2 VENOUS (BEAKER) (test ckeh=792) 52 mmHg 25-40 O2 SATURATION VENOUS (BEAKER) (test cbmv=934) 85.9 % 40.0-70.0 HCO3 VENOUS (BEAKER) (test ebut=004) 22 mmol/L 21-29 BASE EXCESS VENOUS (BEAKER) (test tnxk=906) -3.9 mmol/L -2.0-3.0 PATIENT TEMPERATURE (BEAKER) (test ntyl=1769) 36.7 C FIO2 (BEAKER) (test spns=7577) 40.0 % PROTHROMBIN [id number] 23:56:00* Test Item Value Reference Range Comments PROTIME (BEAKER) (test tebn=410) 13.6 seconds 11.7-14.7 INR (BEAKER) (test csld=797) 1.0 <=5.9 RECOMMENDED COUMADIN/WARFARIN INR THERAPY RANGESSTANDARD DOSE: 2.0 - 3.0 Inclu linette: PROPHYLAXIS for venous thrombosis, systemic embolization; TREATMENT for kimmy ous thrombosis and/or pulmonary embolus.HIGH RISK: Target INR is 2.5-3.5 for pat ients with mechanical heart valves.CBC W/PLT COUNT & AUTO [id number] 23:47:00* Test Item Value Reference Range Comments WHITE BLOOD CELL COUNT (BEAKER) (test lqrp=522) 10.5 K/ L 3.5-10.5 RED BLOOD CELL COUNT (BEAKER) (test qbxr=405) 2.90 M/ L 3.93-5.22 HEMOGLOBIN (BEAKER) (test tzjy=259) 9.1 GM/DL 11.2-15.7 HEMATOCRIT (BEAKER) (test jowg=227) 29.1 % 34.1-44.9 MEAN CORPUSCULAR VOLUME (BEAKER) (test dpwk=296) 100.3 fL 79.4-94.8 MEAN CORPUSCULAR HEMOGLOBIN (BEAKER) (test dnxv=700) 31.4 pg 25.6-32.2 MEAN CORPUSCULAR HEMOGLOBIN CONC (BEAKER) (test gweq=651) 31.3 GM/DL 32.2-35.5 RED CELL DISTRIBUTION WIDTH (BEAKER) (test zjva=064) 17.7 % 11.7-14.4 PLATELET COUNT (BEAKER) (test myyf=058) 158 K/CU MM 150-450 MEAN PLATELET VOLUME (BEAKER) (test vqla=631) 8.7 fL 9.4-12.3 NUCLEATED RED BLOOD CELLS (BEAKER) (test cswz=910) 0 /100 WBC 0-0 NEUTROPHILS RELATIVE PERCENT (BEAKER) (test eneb=162) 73 % LYMPHOCYTES RELATIVE PERCENT (BEAKER) (test pdia=941) 15 % MONOCYTES RELATIVE PERCENT (BEAKER) (test obdr=151) 8 % EOSINOPHILS RELATIVE PERCENT (BEAKER) (test pfbo=027) 2 % BASOPHILS RELATIVE PERCENT (BEAKER) (test ojcq=645) 1 % NEUTROPHILS ABSOLUTE COUNT (BEAKER) (test txey=501) 7.65 K/ L 1.56-6.13 LYMPHOCYTES ABSOLUTE COUNT (BEAKER) (test zxxt=129) 1.61 K/ L 1.18-3.74 MONOCYTES ABSOLUTE COUNT (BEAKER) (test fjlb=804) 0.88 K/ L 0.24-0.36 EOSINOPHILS ABSOLUTE COUNT (BEAKER) (test dfzw=662) 0.23 K/ L 0.04-0.36 BASOPHILS ABSOLUTE COUNT (BEAKER) (test gckf=568) 0.05 K/ L 0.01-0.08 IMMATURE GRANULOCYTES-RELATIVE PERCENT (BEAKER) (test duak=0553) 1 % 0-1 POCT-GLUCOSE [id number] 23:14:00* Test Item Value Reference Range Comments POC-GLUCOSE METER (BEAKER) (test opan=5007) 182 mg/dL 70-110 TESTED AT [facility] [address] [facility] [address] HEPATITIS C PCR, [id number] 10:44:00* Test Item Value Reference Range Comments HCV RESULT COMPONENT (BEAKER) (test swxb=5320) HCV RNA not detected HCV RNA not detected This test uses a Real-Time Polymerase Chain Reaction (RT-PCR) methodology and wa s performed using SERA Ampliprep/SERA TaqMan HCV test kit version 2.0 ([employer]).Reportable range for this assay is 15 - 100,000,000 IU per mL (1.18 - 8.00 Log IU/mL).This test uses a Real-Time Polymerase Chain Reac tion (RT-PCR) methodology and was performed using SERA Ampliprep/SERA TaqMan HCV test kit version 2.0 ([employer]).Reportable range for t his assay is 15 - 100,000,000 IU per mL (1.18 - 8.00 Log IU/mL).[id number] 15:49:00* Test Item Value Reference Range Comments THYROID STIMULATING HORMONE (BEAKER) (test udqa=016) 2.90 uIU/mL 0.35-4.94 HEPATITIS A ANTIBODY, [id number] 14:46:00* Test Item Value Reference Range Comments HEPATITIS A IGG ANTIBODY (BEAKER) (test otkm=5160) Reactive Nonreactive ALPHA FETOPROTEIN (AFP), TUMOR [id number] 14:33:00* Test Item Value Reference Range Comments ALPHA-FETOPROTEIN (BEAKER) (test rfjx=4934) 2.0 ng/mL <10.0 BASIC METABOLIC [id number] 14:20:00* Test Item Value Reference Range Comments SODIUM (BEAKER) (test pxil=051) 135 meq/L 136-145 POTASSIUM (BEAKER) (test jlpz=772) 5.1 meq/L 3.5-5.1 CHLORIDE (BEAKER) (test xuso=540) 97 meq/L 98-107 CO2 (BEAKER) (test hpni=426) 29 meq/L 22-29 BLOOD UREA NITROGEN (BEAKER) (test mnzy=158) 27 mg/dL 7-21 CREATININE (BEAKER) (test ydsa=138) 3.10 mg/dL 0.57-1.25 GLUCOSE RANDOM (BEAKER) (test wsmi=232) 156 mg/dL 70-105 CALCIUM (BEAKER) (test fnsn=135) 9.3 mg/dL 8.4-10.2 EGFR (BEAKER) (test wvmv=6234) 15 mL/min/1.73 sq m ESTIMATED GFR IS NOT ACCURATE CREATININE CLEARANCE IN PREDICTING GLOMERULAR FILTRATION RATE. ESTIMATED GFR IS NOT APPLICABLE FOR DIALYSIS PATIENTS. HEPATIC FUNCTION [id number] 14:18:00* Test Item Value Reference Range Comments TOTAL PROTEIN (BEAKER) (test ureg=176) 7.0 gm/dL 6.0-8.3 ALBUMIN (BEAKER) (test oern=9936) 3.6 g/dL 3.5-5.0 BILIRUBIN TOTAL (BEAKER) (test qrst=210) 0.6 mg/dL 0.2-1.2 BILIRUBIN DIRECT (BEAKER) (test hqjf=942) 0.2 mg/dL 0.1-0.5 ALKALINE PHOSPHATASE (BEAKER) (test uoly=834) 138 U/L 40-150 AST (SGOT) (BEAKER) (test glal=943) 22 U/L 5-34 ALT (SGPT) (BEAKER) (test tgbp=653) 15 U/L 6-55 GAMMA GLUTAMYL TRANSFERASE (GGT)2017-08-24 14:18:00* Test Item Value Reference Range Comments GAMMA GLUTAMYL TRANSFERASE (BEAKER) (test pacj=729) 17 U/L 9-64 PROTHROMBIN TIME/[id number] 13:49:00* Test Item Value Reference Range Comments PROTIME (BEAKER) (test eojd=531) 13.5 seconds 11.7-14.7 INR (BEAKER) (test ipyp=193) 1.0 <=5.9 RECOMMENDED COUMADIN/WARFARIN INR THERAPY RANGESSTANDARD DOSE: 2.0 - 3.0 Inclu linette: PROPHYLAXIS for venous thrombosis, systemic embolization; TREATMENT for kimmy ous thrombosis and/or pulmonary embolus.HIGH RISK: Target INR is 2.5-3.5 for pat ients with mechanical heart valves.CBC W/PLT COUNT & AUTO [id number] 13:42:00* Test Item Value Reference Range Comments WHITE BLOOD CELL COUNT (BEAKER) (test spod=615) 5.8 K/ L 3.5-10.5 RED BLOOD CELL COUNT (BEAKER) (test radd=548) 3.07 M/ L 3.93-5.22 HEMOGLOBIN (BEAKER) (test udtd=217) 9.3 GM/DL 11.2-15.7 HEMATOCRIT (BEAKER) (test yqhw=320) 31.7 % 34.1-44.9 MEAN CORPUSCULAR VOLUME (BEAKER) (test uhbu=445) 103.3 fL 79.4-94.8 MEAN CORPUSCULAR HEMOGLOBIN (BEAKER) (test fzgd=954) 30.3 pg 25.6-32.2 MEAN CORPUSCULAR HEMOGLOBIN CONC (BEAKER) (test fupn=646) 29.3 GM/DL 32.2-35.5 RED CELL DISTRIBUTION WIDTH (BEAKER) (test cfxg=138) 15.2 % 11.7-14.4 PLATELET COUNT (BEAKER) (test grka=443) 293 K/CU MM 150-450 MEAN PLATELET VOLUME (BEAKER) (test drat=781) 8.7 fL 9.4-12.3 NUCLEATED RED BLOOD CELLS (BEAKER) (test dyxn=433) 0 /100 WBC 0-0 NEUTROPHILS RELATIVE PERCENT (BEAKER) (test ctil=496) 47 % LYMPHOCYTES RELATIVE PERCENT (BEAKER) (test uwxl=981) 42 % MONOCYTES RELATIVE PERCENT (BEAKER) (test czux=404) 9 % EOSINOPHILS RELATIVE PERCENT (BEAKER) (test plnm=428) 2 % BASOPHILS RELATIVE PERCENT (BEAKER) (test odpq=857) 1 % NEUTROPHILS ABSOLUTE COUNT (BEAKER) (test jpdh=433) 2.72 K/ L 1.56-6.13 LYMPHOCYTES ABSOLUTE COUNT (BEAKER) (test hnei=203) 2.42 K/ L 1.18-3.74 MONOCYTES ABSOLUTE COUNT (BEAKER) (test cugv=859) 0.53 K/ L 0.24-0.36 EOSINOPHILS ABSOLUTE COUNT (BEAKER) (test fwtf=940) 0.10 K/ L 0.04-0.36 BASOPHILS ABSOLUTE COUNT (BEAKER) (test bmts=539) 0.05 K/ L 0.01-0.08 IMMATURE GRANULOCYTES-RELATIVE PERCENT (BEAKER) (test dzph=9906) 0 % 0-1 CT, CTA [id number] 15:14:00Addendum BeginsREPORT STATUS:A Addendum: I agree with the previously described non vascular findings. Signed: Milka Reid MDReport Verified Date/Time: 08/15/2017 15:14:22 Reading Location: [place] [address] Angio Body Reading RoomAddendum EndsFINAL REPORT CT angiography of the abdominal aorta and pelvic arteries, 15 August 2017 INDICATION: This is a 62 year old female with end-stage renal disease presents for pretransplant assessment. This study is performed in an attempt to avoid an invasive procedure. TECHNIQUE: Spiral acquisition before and during intravenous contrast administration using a [employer] multidetector CT scanner. Images were obtained before [...] Dose modulation, iterative reconstruction, and/or weight based adjus tment of the mA/kV was utilized to reduce the radiation dose to as low as reason ably achievable. FINDINGS: VASCULAR: The abdominal aorta is normal in course, c alibre and contour. There is calcific atherosclerosis identified in the abdomina l aorta with no ectasia or aneurysmal dilation identified. There is no evidence of acute aortic pathology, specifically, there is no dissection, intramural hem atoma, or contained rupture. Quantitative dimensions of the abdominal aorta are as follows: 2.0 cm at the mesenteric segment; 1.7 cm at the renal segment,; a nd 1.5 cm at the aortic bifurcation. The common iliac, external iliac, common femoral, and the visualized superficial femoral arteries, bilaterally, are widel y patent; there is scattered calcific atherosclerosis along the pelvic arteries especially in the common iliac artery though no obstructive lesion is identified . Assembler For Puller Over Machine dimensions of the left and the right external iliac arteries ar e 5 and 5 mm, respectively. Note, surgical clips are seen in the left common fem oral level indicating right surgery at this level. Correlate with appropriate pr ocedure history. Similarly, the associated pelvic veins are patent with no venou s thrombosis identified. Assembler [employer] Over [employer] dimensions of the left and the right ex ternal iliac veins are 12 and 10 mm, respectively. The [place] left and right gilberto al arteries are patent though calcific atherosclerosis is seen, consistent with end-stage renal disease. The coeliac axis, SMA, TOI only have minimal eccentric nonobstructive calcification present. NON-VASCULAR:- In the lung bases, a 1 mm nodule is identified in the right lower lobe at image 1 and left basal pleural e ffusion is identified with associated atelectatic changes seen. Pulmonary vascul ature could be mildly prominent. In the abdomen, the liver and spleen appears un remarkable. The liver edge is smooth. No abnormal enhancing structures identifie d. Patient is post cholecystectomy. The adrenal glands are unremarkable. The weldon creas have no gross abnormality seen. No acute renal pathology is seen and no hy dronephrosis or perirenal fluid collection is identified. The kidneys are small in size, consistent with end-stage renal disease status. Bowel is not well asses sed by CT angiography as enteric contrast is not given. No obvious bowel dilatio n is identified. There is no significant retroperitoneal adenopathy. No free fl uid or free air is identified. The bladder is not distended. The uterus is not identified. No abnormal adnexal masses seen though CT is not optimizing assessme nt of pelvic gynaecological structures. Injection granuloma is identified package maker iorly, subcutaneously. No acute bony pathology is identified; degenerative ruiz es is present. In addition, compression fracture is identified at L4 level, age- indeterminate. CONCLUSIONS: 1. The abdominal aorta is normal in course, calibre and contour. Calcific atherosclerosis is seen. There is no evidence of acute aortic pathology, specifically, there is no dissection, intramural hematoma, or contained rupture. Quantitative dimension of the abdominal aorta are as noted. The pelvic arteries and veins are widely patent with no arterial stenosis or ve nous thrombosis identified. Assembler [employer] Over [employer] dimensions of the left and the right external iliac arteries and veins are as described above. Calcification is seen in the common iliac arteries, bilaterally, however, they are nonobstructive. 2. Widely patent mesenteric arteries. 3. Other findings as described above. 4. An addendum will be dictated regarding the non-vascular findings by the Consulta nt Radiologist. Signed: Monster Corral MDRdeejayort Verified Date/Time: 8 09:33:56 Reading Location: [place] [id number] Cardiology MRI Electronically sign ed by: MILKA REID M.D. on 08/15/2017 03:14 PM RAD, CHEST, 2 [id number] 09:19:00Reason for Exam:->Pre kidney transplant evaluation.FINAL REPORT Chest, PA and lateral. History: Pretransplant evaluation. Comparison: 01/15/2017. Discussion: Mild prominence of cardiac silhouette. Mild interstitial edema. Trace pleural fluid present. The lungs are otherwise clear without evidence of focal consolidation. There are no acute osseous abnormalities. Status post median sternotomy. The soft tissues are unremarkable. IMPRESSION: Mild pulmonary edema. Signed: Gretchen Veliz Verified Date/Time: 08/15/2017 09:19:59 Reading Location: [address] Radiology Readi Room 09 :19 AM URINE [id number] 10:47:00* Test Item Value Reference Range Comments CULTURE (BEAKER) (test chlo=9776) Amikacin (test code=1) Ampicillin + Sulbactam (test code=6) Aztreonam (test code=32) Cefepime (test code=51) Cefoxitin (test code=68) Ceftazidime (test code=27) Ceftriaxone (test code=52) Ertapenem (test code=38) Gentamicin (test code=18) Levofloxacin (test code=22) Meropenem (test code=34) Nitrofurantoin (test code=23) Piperacillin + Tazobactam (test code=29) Tetracycline (test code=2) Tobramycin (test code=25) Trimethoprim + Sulfamethoxazole (test code=47) CULTURE (BEAKER) (test ufag=7111) 50-59,000 col/mL Raoultella ornithinolytica >100,000 col/ml skin [id number] 10:23:00* Test Item Value Reference Range Comments RPR SCREEN (BEAKER) (test krde=801) Nonreactive Nonreactive VARICELLA ZOSTER ANTIBODY, [id number] 09:06:00* Test Item Value Reference Range Comments VARICELLA ZOSTER IGG (AL) (BEAKER) (test svpv=8263) 2.5 Al VARICELLA ZOSTER RESULT INTERPRETATIONS: <=0.8 Al Nonreactive: Presumed non-immune to VZV 0.9-1.0 Al Equivocal >=1.1 Al Reactive: Presumed immune to VZVCYTOMEGALOVIRUS ANTIBODY, [id number] 08:58:00* Test Item Value Reference Range Comments CYTOMEGALOVIRUS IGG ANTIBODY (BEAKER) (test qunb=316) Positive CYTOMEGALOVIRUS ANTIBODY, [id number] 08:58:00* Test Item Value Reference Range Comments CYTOMEGALOVIRUS IGM ANTIBODY (BEAKER) (test fpmd=661) Negative EBV-VCA ANTIBODY, [id number] 08:58:00* Test Item Value Reference Range Comments [place]INE[place] VCA IGG (BEAKER) (test ynis=086) Positive EBV-VCA ANTIBODY, [id number] 08:58:00* Test Item Value Reference Range Comments KATHERINE-[place] VCA IGM (BEAKER) (test sutc=860) Negative HEMOGLOBIN [id number] 14:51:00* Test Item Value Reference Range Comments HEMOGLOBIN A1C (BEAKER) (test yhma=993) 5.3 % 4.3-6.1 HEPATITIS C [id number] 14:41:00* Test Item Value Reference Range Comments HEPATITIS C ANTIBODY (BEAKER) (test jvuj=319) Reactive Nonreactive HEPATITIS B SURFACE [id number] 14:34:00* Test Item Value Reference Range Comments HEPATITIS B SURFACE ANTIBODY (BEAKER) (test cqvz=211) < mIU/mL <8.0 HEPATITIS B SURFACE [id number] 14:21:00* Test Item Value Reference Range Comments HEPATITIS B SURFACE ANTIGEN (2) (BEAKER) (test degs=8770) Nonreactive Nonreactive HEPATITIS B CORE ANTIBODY, [id number] 14:21:00* Test Item Value Reference Range Comments HEPATITIS B CORE IGM ANTIBODY (BEAKER) (test ttwr=712) Nonreactive Nonreactive HIV-1 ANTIGEN WITH HIV-1/2 [id number] 14:21:00* Test Item Value Reference Range Comments HIV-1 ANTIGEN WITH HIV 1\\T\\2 ANTIBODY (2) (BEAKER) (test bjqb=6331) Nonreactive Nonreactive COMPREHENSIVE METABOLIC [id number] 13:17:00* Test Item Value Reference Range Comments TOTAL PROTEIN (BEAKER) (test ejcp=791) 6.7 gm/dL 6.0-8.3 ALBUMIN (BEAKER) (test titr=6639) 3.7 g/dL 3.5-5.0 ALKALINE PHOSPHATASE (BEAKER) (test gvao=636) 159 U/L 40-150 BILIRUBIN TOTAL (BEAKER) (test judc=762) 0.6 mg/dL 0.2-1.2 SODIUM (BEAKER) (test ytau=783) 137 meq/L 136-145 POTASSIUM (BEAKER) (test ecwo=298) 4.5 meq/L 3.5-5.1 CHLORIDE (BEAKER) (test yzjl=569) 98 meq/L 98-107 CO2 (BEAKER) (test cieh=038) 30 meq/L 22-29 BLOOD UREA NITROGEN (BEAKER) (test abzw=261) 18 mg/dL 7-21 CREATININE (BEAKER) (test aecm=572) 3.16 mg/dL 0.57-1.25 GLUCOSE RANDOM (BEAKER) (test xjaw=162) 81 mg/dL 70-105 CALCIUM (BEAKER) (test ovad=133) 9.2 mg/dL 8.4-10.2 AST (SGOT) (BEAKER) (test ectc=719) 20 U/L 5-34 ALT (SGPT) (BEAKER) (test kaiq=586) 13 U/L 6-55 EGFR (BEAKER) (test lnlt=1342) 15 mL/min/1.73 sq m ESTIMATED GFR IS NOT ACCURATE CREATININE CLEARANCE IN PREDICTING GLOMERULAR FILTRATION RATE. ESTIMATED GFR IS NOT APPLICABLE FOR DIALYSIS PATIENTS. PTH, [id number] 12:47:00* Test Item Value Reference Range Comments PARATHYROID HORMONE INTACT (BEAKER) (test qcrk=106) 482.6 pg/mL 8.5-72.5 URIC [id number] 12:42:00* Test Item Value Reference Range Comments URIC ACID (BEAKER) (test fovu=370) 3.1 mg/dL 2.6-7.2 [id number] 12:42:00* Test Item Value Reference Range Comments PHOSPHORUS (BEAKER) (test qevk=924) 2.8 mg/dL 2.3-4.7 LIPID [id number] 12:42:00* Test Item Value Reference Range Comments TRIGLYCERIDES (BEAKER) (test kmqm=913) 91 mg/dL CHOLESTEROL (BEAKER) (test wmbv=269) 136 mg/dL HDL CHOLESTEROL (BEAKER) (test izlw=991) 33 mg/dL LDL CHOLESTEROL CALCULATED (BEAKER) (test wkaz=531) 85 mg/dL Triglyceride Reference Range: Low Risk [...] Range Comments GAMMA GLUTAMYL TRANSFERASE (BEAKER) (test afgl=030) 17 U/L 9-64 LACTATE DEHYDROGENASE (LDH)2017-07-27 12:42:00* Test Item Value Reference Range Comments LACTATE DEHYDROGENASE (EMMAAKER) (test mqli=536) 298 U/L 125-220 [id number] 12:06:00* Test Item Value Reference Range Comments PROTIME (BEAKER) (test ojsu=213) 12.9 seconds 11.7-14.7 INR (BEAKER) (test qkfx=990) 1.0 <=5.9 PARTIAL THROMBOPLASTIN TIME (BEAKER) (test piwn=652) 29.0 seconds 22.5-36.0 RECOMMENDED COUMADIN/WARFARIN INR THERAPY RANGESSTANDARD DOSE: 2.0 - 3.0 Inclu linette: PROPHYLAXIS for venous thrombosis, systemic embolization; TREATMENT for kimmy ous thrombosis and/or pulmonary embolus.HIGH RISK: Target INR is 2.5-3.5 for pat ients with mechanical heart valves.CBC W/PLT COUNT & AUTO [id number] 11:55:00* Test Item Value Reference Range Comments WHITE BLOOD CELL COUNT (BEAKER) (test wbam=362) 6.9 K/ L 3.5-10.5 RED BLOOD CELL COUNT (BEAKER) (test bvlz=812) 3.28 M/ L 3.93-5.22 HEMOGLOBIN (BEAKER) (test ksgk=869) 10.5 GM/DL 11.2-15.7 HEMATOCRIT (BEAKER) (test ibpf=129) 35.0 % 34.1-44.9 MEAN CORPUSCULAR VOLUME (BEAKER) (test xxoa=855) 106.7 fL 79.4-94.8 MEAN CORPUSCULAR HEMOGLOBIN (BEAKER) (test urvv=833) 32.0 pg 25.6-32.2 MEAN CORPUSCULAR HEMOGLOBIN CONC (BEAKER) (test oxok=181) 30.0 GM/DL 32.2-35.5 RED CELL DISTRIBUTION WIDTH (BEAKER) (test sjaq=019) 14.0 % 11.7-14.4 PLATELET COUNT (BEAKER) (test dokv=293) 223 K/CU MM 150-450 MEAN PLATELET VOLUME (BEAKER) (test dimo=130) 8.7 fL 9.4-12.3 NUCLEATED RED BLOOD CELLS (BEAKER) (test gysq=742) 0 /100 WBC 0-0 NEUTROPHILS RELATIVE PERCENT (BEAKER) (test ykic=222) 56 % LYMPHOCYTES RELATIVE PERCENT (BEAKER) (test sani=531) 33 % MONOCYTES RELATIVE PERCENT (BEAKER) (test lhwz=814) 9 % EOSINOPHILS RELATIVE PERCENT (BEAKER) (test krwf=304) 1 % BASOPHILS RELATIVE PERCENT (BEAKER) (test lsnn=971) 1 % NEUTROPHILS ABSOLUTE COUNT (BEAKER) (test dgwn=302) 3.89 K/ L 1.56-6.13 LYMPHOCYTES ABSOLUTE COUNT (BEAKER) (test twwy=714) 2.25 K/ L 1.18-3.74 MONOCYTES ABSOLUTE COUNT (BEAKER) (test klgk=654) 0.64 K/ L 0.24-0.36 EOSINOPHILS ABSOLUTE COUNT (BEAKER) (test wuaw=476) 0.09 K/ L 0.04-0.36 BASOPHILS ABSOLUTE COUNT (BEAKER) (test puzw=331) 0.04 K/ L 0.01-0.08 IMMATURE GRANULOCYTES-RELATIVE PERCENT (BEAKER) (test hvtw=9272) 0 % 0-1 TSH/FREE T4 IF [id number] 15:09:00* Test Item Value Reference Range Comments THYROID STIMULATING HORMONE (BEAKER) (test cuob=539) 4.09 uIU/mL 0.35-4.94 [id number] 14:49:00* Test Item Value Reference Range Comments PREALBUMIN (BEAKER) (test wazi=324) 46 mg/dL 14-45 TACROLIMUS [id number] 12:47:00* Test Item Value Reference Range Comments TACROLIMUS BLOOD (BEAKER) (test rggo=194) 5.1 ng/mL 10.0-20.0 HEPATIC FUNCTION [id number] 12:24:00* Test Item Value Reference Range Comments TOTAL PROTEIN (BEAKER) (test aenj=880) 6.7 gm/dL 6.0-8.3 ALBUMIN (BEAKER) (test sdve=5364) 3.7 g/dL 3.5-5.0 BILIRUBIN TOTAL (BEAKER) (test vhhy=468) 0.3 mg/dL 0.2-1.2 BILIRUBIN DIRECT (BEAKER) (test ozbw=260) 0.2 mg/dL 0.1-0.5 ALKALINE PHOSPHATASE (BEAKER) (test ontc=475) 207 U/L 40-150 AST (SGOT) (BEAKER) (test mnnk=853) 21 U/L 5-34 ALT (SGPT) (BEAKER) (test ueca=503) 10 U/L 6-55 CBC W/PLT COUNT & AUTO [id number] 11:29:00* Test Item Value Reference Range Comments WHITE BLOOD CELL COUNT (BEAKER) (test gkvf=979) 6.1 K/ L 3.5-10.5 RED BLOOD CELL COUNT (BEAKER) (test cnvc=709) 2.80 M/ L 3.93-5.22 HEMOGLOBIN (BEAKER) (test rwni=801) 9.4 GM/DL 11.2-15.7 HEMATOCRIT (BEAKER) (test dsrq=221) 30.3 % 34.1-44.9 MEAN CORPUSCULAR VOLUME (BEAKER) (test yenq=496) 108.2 fL 79.4-94.8 MEAN CORPUSCULAR HEMOGLOBIN (BEAKER) (test bwmj=891) 33.6 pg 25.6-32.2 MEAN CORPUSCULAR HEMOGLOBIN CONC (BEAKER) (test gwhh=876) 31.0 GM/DL 32.2-35.5 RED CELL DISTRIBUTION WIDTH (BEAKER) (test yxhd=035) 15.4 % 11.7-14.4 PLATELET COUNT (BEAKER) (test iils=524) 203 K/CU MM 150-450 MEAN PLATELET VOLUME (BEAKER) (test mkpf=378) 8.2 fL 9.4-12.3 NUCLEATED RED BLOOD CELLS (BEAKER) (test kzsc=477) 0 /100 WBC 0-0 NEUTROPHILS RELATIVE PERCENT (BEAKER) (test prsg=947) 47 % LYMPHOCYTES RELATIVE PERCENT (BEAKER) (test bmkg=386) 43 % MONOCYTES RELATIVE PERCENT (BEAKER) (test ktdb=065) 8 % EOSINOPHILS RELATIVE PERCENT (BEAKER) (test rvjd=236) 2 % BASOPHILS RELATIVE PERCENT (BEAKER) (test gjwc=623) 1 % NEUTROPHILS ABSOLUTE COUNT (BEAKER) (test jkgr=600) 2.84 K/ L 1.56-6.13 LYMPHOCYTES ABSOLUTE COUNT (BEAKER) (test srzw=004) 2.58 K/ L 1.18-3.74 MONOCYTES ABSOLUTE COUNT (BEAKER) (test hwvx=515) 0.49 K/ L 0.24-0.36 EOSINOPHILS ABSOLUTE COUNT (BEAKER) (test nvfi=868) 0.10 K/ L 0.04-0.36 BASOPHILS ABSOLUTE COUNT (BEAKER) (test hodr=222) 0.03 K/ L 0.01-0.08 IMMATURE GRANULOCYTES-RELATIVE PERCENT (BEAKER) (test mwpb=8976) 0 % 0-1 (MANUAL DIFFERENTIAL)2017-05-19 11:29:00* Test Item Value Reference Range Comments TOTAL COUNTED (BEAKER) (test iahu=0066) BASIC METABOLIC [id number] 10:32:00* Test Item Value Reference Range Comments SODIUM (BEAKER) (test tvnq=255) 140 meq/L 136-145 POTASSIUM (BEAKER) (test surg=256) 5.4 meq/L 3.5-5.1 CHLORIDE (BEAKER) (test nivi=330) 96 meq/L 98-107 CO2 (BEAKER) (test fijd=064) 31 meq/L 22-29 BLOOD UREA NITROGEN (BEAKER) (test qokn=846) 49 mg/dL 7-21 CREATININE (BEAKER) (test fkln=486) 3.28 mg/dL 0.57-1.25 GLUCOSE RANDOM (BEAKER) (test chtk=955) 134 mg/dL 70-105 CALCIUM (BEAKER) (test iozb=124) 9.7 mg/dL 8.4-10.2 EGFR (BEAKER) (test fymz=6465) 14 mL/min/1.73 sq m ESTIMATED GFR IS NOT ACCURATE CREATININE CLEARANCE IN PREDICTING GLOMERULAR FILTRATION RATE. ESTIMATED GFR IS NOT APPLICABLE FOR DIALYSIS PATIENTS. TACROLIMUS [id number] 13:27:00* Test Item Value Reference Range Comments TACROLIMUS BLOOD (BEAKER) (test mjjf=344) 4.4 ng/mL 10.0-20.0 CBC W/PLT COUNT & AUTO [id number] 12:05:00* Test Item Value Reference Range Comments WHITE BLOOD CELL COUNT (BEAKER) (test hqjc=603) 6.3 K/ L 3.5-10.5 RED BLOOD CELL COUNT (BEAKER) (test kbos=353) 2.46 M/ L 3.93-5.22 HEMOGLOBIN (BEAKER) (test xrtq=423) 7.4 GM/DL 11.2-15.7 HEMATOCRIT (BEAKER) (test pewf=591) 22.8 % 34.1-44.9 MEAN CORPUSCULAR VOLUME (BEAKER) (test xbwk=169) 92.7 fL 79.4-94.8 MEAN CORPUSCULAR HEMOGLOBIN (BEAKER) (test sfoz=885) 30.1 pg 25.6-32.2 MEAN CORPUSCULAR HEMOGLOBIN CONC (BEAKER) (test zuaz=345) 32.5 GM/DL 32.2-35.5 RED CELL DISTRIBUTION WIDTH (BEAKER) (test jnnc=454) 14.7 % 11.7-14.4 PLATELET COUNT (BEAKER) (test bpah=618) 240 K/CU MM 150-450 MEAN PLATELET VOLUME (BEAKER) (test dcel=758) 8.9 fL 9.4-12.3 NUCLEATED RED BLOOD CELLS (BEAKER) (test duon=552) 0 /100 WBC 0-0 NEUTROPHILS RELATIVE PERCENT (BEAKER) (test dczu=762) 46 % LYMPHOCYTES RELATIVE PERCENT (BEAKER) (test srvx=373) 37 % MONOCYTES RELATIVE PERCENT (BEAKER) (test yzmk=539) 13 % EOSINOPHILS RELATIVE PERCENT (BEAKER) (test pwoe=934) 3 % BASOPHILS RELATIVE PERCENT (BEAKER) (test rpkg=928) 0 % NEUTROPHILS ABSOLUTE COUNT (BEAKER) (test zkls=973) 2.91 K/ L 1.56-6.13 LYMPHOCYTES ABSOLUTE COUNT (BEAKER) (test iisw=917) 2.32 K/ L 1.18-3.74 MONOCYTES ABSOLUTE COUNT (BEAKER) (test tkpp=511) 0.84 K/ L 0.24-0.36 EOSINOPHILS ABSOLUTE COUNT (BEAKER) (test pmlx=746) 0.17 K/ L 0.04-0.36 BASOPHILS ABSOLUTE COUNT (BEAKER) (test mpcs=869) 0.02 K/ L 0.01-0.08 IMMATURE GRANULOCYTES-RELATIVE PERCENT (BEAKER) (test zwpe=2115) 1 % 0-1 TACROLIMUS [id number] 11:56:00* Test Item Value Reference Range Comments TACROLIMUS BLOOD (BEAKER) (test zjtz=221) 5.4 ng/mL 10.0-20.0 HEMOGLOBIN [id number] 11:38:00* Test Item Value Reference Range Comments HEMOGLOBIN A1C (BEAKER) (test iotk=342) 6.2 % 4.3-6.1 BASIC METABOLIC [id number] 10:51:00* Test Item Value Reference Range Comments SODIUM (BEAKER) (test gxeu=463) 133 meq/L 136-145 POTASSIUM (BEAKER) (test dixu=734) 5.8 meq/L 3.5-5.1 CHLORIDE (BEAKER) (test jwsm=758) 96 meq/L 98-107 CO2 (BEAKER) (test qegi=691) 24 meq/L 22-29 BLOOD UREA NITROGEN (BEAKER) (test sema=678) 61 mg/dL 7-21 CREATININE (BEAKER) (test njkx=443) 5.81 mg/dL 0.57-1.25 GLUCOSE RANDOM (BEAKER) (test hxsc=767) 115 mg/dL 70-105 CALCIUM (BEAKER) (test ohec=923) 9.2 mg/dL 8.4-10.2 EGFR (BEAKER) (test tfce=6629) 7 mL/min/1.73 sq m ESTIMATED GFR IS NOT ACCURATE CREATININE CLEARANCE IN PREDICTING GLOMERULAR FILTRATION RATE. ESTIMATED GFR IS NOT APPLICABLE FOR DIALYSIS PATIENTS. LIPID [id number] 10:47:00* Test Item Value Reference Range Comments TRIGLYCERIDES (BEAKER) (test kpmf=852) 126 mg/dL CHOLESTEROL (BEAKER) (test ywqj=854) 152 mg/dL HDL CHOLESTEROL (BEAKER) (test aswb=122) 33 mg/dL LDL CHOLESTEROL CALCULATED (BEAKER) (test hmcb=856) 94 mg/dL Triglyceride Reference Range: Low Risk <150 Borderline 150-199 High Risk 200-499 Very High Risk >=500Cholesterol Reference Range: Low Risk <200 Borderline 200-239 High Risk >240HDL Cholesterol Reference Range: Low Risk >=60 High Risk <40LDL Cholesterol Reference Range: Optimal <100 Near Optimal 100-129 Borderline 130-159 High 160-189 Very High >=190 HEPATIC FUNCTION [id number] 10:47:00* Test Item Value Reference Range Comments TOTAL PROTEIN (BEAKER) (test ettr=519) 6.3 gm/dL 6.0-8.3 ALBUMIN (BEAKER) (test jwos=0714) 3.3 g/dL 3.5-5.0 BILIRUBIN TOTAL (BEAKER) (test tepb=595) 0.5 mg/dL 0.2-1.2 BILIRUBIN DIRECT (BEAKER) (test pvri=636) 0.2 mg/dL 0.1-0.5 ALKALINE PHOSPHATASE (BEAKER) (test aquq=248) 89 U/L 40-150 AST (SGOT) (BEAKER) (test teeu=054) 38 U/L 5-34 ALT (SGPT) (BEAKER) (test adjc=381) 20 U/L 6-55 POCT-GLUCOSE [id number] 12:56:00* Test Item Value Reference Range Comments POC-GLUCOSE METER (BEAKER) (test penp=5097) 168 mg/dL 70-110 TESTED AT [facility] [address] [facility] [id number] TACROLIMUS [id number] 09:39:00* Test Item Value Reference Range Comments TACROLIMUS BLOOD (BEAKER) (test prfo=026) 6.8 ng/mL 10.0-20.0 POCT-GLUCOSE [id number] 09:00:00* Test Item Value Reference Range Comments POC-GLUCOSE METER (BEAKER) (test guhe=9107) 130 mg/dL 70-110 TESTED AT [facility] [address] [facility] [address] CBC W/PLT COUNT & AUTO [id number] 08:57:00* Test Item Value Reference Range Comments WHITE BLOOD CELL COUNT (BEAKER) (test koex=345) 7.5 K/ L 4.0-10.0 RED BLOOD CELL COUNT (BEAKER) (test ofaw=259) 2.82 M/ L 4.00-5.00 HEMOGLOBIN (BEAKER) (test tfwl=749) 8.8 GM/DL 12.0-15.0 HEMATOCRIT (BEAKER) (test wjmp=194) 27.3 % 36.0-45.0 MEAN CORPUSCULAR VOLUME (BEAKER) (test ocsr=972) 96.9 fL 82.0-99.0 MEAN CORPUSCULAR HEMOGLOBIN (BEAKER) (test qdag=631) 31.2 pg 27.0-33.0 MEAN CORPUSCULAR HEMOGLOBIN CONC (BEAKER) (test llqq=933) 32.1 GM/DL 32.0-36.0 RED CELL DISTRIBUTION WIDTH (BEAKER) (test jwhk=445) 12.6 % 10.3-14.2 PLATELET COUNT (BEAKER) (test tjik=876) 158 K/CU MM 150-430 MEAN PLATELET VOLUME (BEAKER) (test nkdp=822) 6.6 fL 6.5-10.5 NUCLEATED RED BLOOD CELLS (BEAKER) (test ogly=048) 0 /100 WBC 0-0 NEUTROPHILS RELATIVE PERCENT (BEAKER) (test brup=816) 53 % LYMPHOCYTES RELATIVE PERCENT (BEAKER) (test jrxt=178) 34 % MONOCYTES RELATIVE PERCENT (BEAKER) (test ojue=765) 8 % EOSINOPHILS RELATIVE PERCENT (BEAKER) (test cwks=170) 4 % BASOPHILS RELATIVE PERCENT (BEAKER) (test ewzj=435) 1 % NEUTROPHILS ABSOLUTE COUNT (BEAKER) (test gwfz=211) 3.97 K/ L 1.80-8.00 LYMPHOCYTES ABSOLUTE COUNT (BEAKER) (test gyfw=779) 2.55 K/ L 1.48-4.50 MONOCYTES ABSOLUTE COUNT (BEAKER) (test kzjr=837) 0.59 K/ L 0.00-1.30 EOSINOPHILS ABSOLUTE COUNT (BEAKER) (test veib=511) 0.27 K/ L 0.00-0.50 BASOPHILS ABSOLUTE COUNT (BEAKER) (test guez=212) 0.08 K/ L 0.00-0.20 0.00BASIC METABOLIC [id number] 06:36:00* Test Item Value Reference Range Comments SODIUM (BEAKER) (test norr=877) 137 meq/L 136-145 POTASSIUM (BEAKER) (test gpst=332) 4.0 meq/L 3.5-5.1 CHLORIDE (BEAKER) (test iojx=780) 99 meq/L 98-107 CO2 (BEAKER) (test aucx=790) 28 meq/L 22-29 BLOOD UREA NITROGEN (BEAKER) (test xbea=938) 35 mg/dL 7-21 CREATININE (BEAKER) (test ikxb=523) 3.84 mg/dL 0.57-1.25 GLUCOSE RANDOM (BEAKER) (test kmiq=609) 104 mg/dL 70-105 CALCIUM (BEAKER) (test biyx=545) 8.6 mg/dL 8.4-10.2 EGFR (BEAKER) (test gdov=6933) 12 mL/min/1.73 sq m ESTIMATED GFR IS NOT ACCURATE CREATININE CLEARANCE IN PREDICTING GLOMERULAR FILTRATION RATE. ESTIMATED GFR IS NOT APPLICABLE FOR DIALYSIS PATIENTS. [id number] 06:35:00* Test Item Value Reference Range Comments PHOSPHORUS (BEAKER) (test uqbb=050) 2.6 mg/dL 2.3-4.7 [id number] 06:35:00* Test Item Value Reference Range Comments MAGNESIUM (BEAKER) (test cfrh=799) 1.7 mg/dL 1.6-2.6 POCT-GLUCOSE [id number] 21:00:00* Test Item Value Reference Range Comments POC-GLUCOSE METER (BEAKER) (test qyzf=3879) 147 mg/dL 70-110 TESTED AT [facility] [address] [facility] [address] POCT-GLUCOSE [id number] 17:46:00* Test Item Value Reference Range Comments POC-GLUCOSE METER (BEAKER) (test tryx=1762) 236 mg/dL 70-110 TESTED AT [facility] [address] [facility] [address] TACROLIM[place] [id number] 10:16:00* Test Item Value Reference Range Comments TACROLIMUS BLOOD (BEAKER) (test sqhl=992) 4.9 ng/mL 10.0-20.0 POCT-GLUCOSE [id number] 09:21:00* Test Item Value Reference Range Comments POC-GLUCOSE METER (BEAKER) (test zsvb=8536) 132 mg/dL 70-110 TESTED AT [facility] [address] [facility] [address] CBC W/PLT COUNT & AUTO [id number] 07:05:00* Test Item Value Reference Range Comments WHITE BLOOD CELL COUNT (BEAKER) (test tibv=947) 8.8 K/ L 4.0-10.0 RED BLOOD CELL COUNT (BEAKER) (test idux=664) 2.84 M/ L 4.00-5.00 HEMOGLOBIN (BEAKER) (test blbh=156) 8.8 GM/DL 12.0-15.0 HEMATOCRIT (BEAKER) (test npgw=282) 27.3 % 36.0-45.0 MEAN CORPUSCULAR VOLUME (BEAKER) (test bnih=289) 96.0 fL 82.0-99.0 MEAN CORPUSCULAR HEMOGLOBIN (BEAKER) (test pqmz=758) 31.0 pg 27.0-33.0 MEAN CORPUSCULAR HEMOGLOBIN CONC (BEAKER) (test bobt=012) 32.3 GM/DL 32.0-36.0 RED CELL DISTRIBUTION WIDTH (BEAKER) (test ygpc=366) 12.5 % 10.3-14.2 PLATELET COUNT (BEAKER) (test qibq=441) 145 K/CU MM 150-430 MEAN PLATELET VOLUME (BEAKER) (test havp=549) 6.5 fL 6.5-10.5 NUCLEATED RED BLOOD CELLS (BEAKER) (test gwjd=974) 0 /100 WBC 0-0 NEUTROPHILS RELATIVE PERCENT (BEAKER) (test irnu=083) 54 % LYMPHOCYTES RELATIVE PERCENT (BEAKER) (test xaoe=706) 32 % MONOCYTES RELATIVE PERCENT (BEAKER) (test yhqv=818) 10 % EOSINOPHILS RELATIVE PERCENT (BEAKER) (test bxkt=953) 4 % BASOPHILS RELATIVE PERCENT (BEAKER) (test olwv=564) 0 % NEUTROPHILS ABSOLUTE COUNT (BEAKER) (test wvuu=912) 4.72 K/ L 1.80-8.00 LYMPHOCYTES ABSOLUTE COUNT (BEAKER) (test oice=875) 2.80 K/ L 1.48-4.50 MONOCYTES ABSOLUTE COUNT (BEAKER) (test ifpm=475) 0.91 K/ L 0.00-1.30 EOSINOPHILS ABSOLUTE COUNT (BEAKER) (test tydb=007) 0.32 K/ L 0.00-0.50 BASOPHILS ABSOLUTE COUNT (BEAKER) (test mvht=698) 0.02 K/ L 0.00-0.20 0.00BASIC METABOLIC [id number] 06:50:00* Test Item Value Reference Range Comments SODIUM (BEAKER) (test lpli=233) 136 meq/L 136-145 POTASSIUM (BEAKER) (test repf=393) 3.8 meq/L 3.5-5.1 CHLORIDE (BEAKER) (test vgcx=351) 101 meq/L 98-107 CO2 (BEAKER) (test ywiu=627) 25 meq/L 22-29 BLOOD UREA NITROGEN (BEAKER) (test yqlp=548) 24 mg/dL 7-21 CREATININE (BEAKER) (test xorz=032) 2.89 mg/dL 0.57-1.25 GLUCOSE RANDOM (BEAKER) (test nbek=410) 152 mg/dL 70-105 CALCIUM (BEAKER) (test carr=669) 8.5 mg/dL 8.4-10.2 EGFR (BEAKER) (test rffq=2439) 17 mL/min/1.73 sq m ESTIMATED GFR IS NOT ACCURATE CREATININE CLEARANCE IN PREDICTING GLOMERULAR FILTRATION RATE. ESTIMATED GFR IS NOT APPLICABLE FOR DIALYSIS PATIENTS. [id number] 06:49:00* Test Item Value Reference Range Comments PHOSPHORUS (BEAKER) (test xpbu=492) 1.8 mg/dL 2.3-4.7 [id number] 06:49:00* Test Item Value Reference Range Comments MAGNESIUM (BEAKER) (test adwv=073) 1.8 mg/dL 1.6-2.6 CALCIUM, [id number] 06:44:00* Test Item Value Reference Range Comments CALCIUM IONIZED (BEAKER) (test yevk=926) 0.92 mmol/L 1.12-1.27 PH, BLOOD (BEAKER) (test ijvd=1709) 7.55 POCT-GLUCOSE [id number] 21:19:00* Test Item Value Reference Range Comments POC-GLUCOSE METER (BEAKER) (test nmrx=9613) 197 mg/dL 70-110 TESTED AT [address] [address] POCT-GLUCOSE [id number] 18:18:00* Test Item Value Reference Range Comments POC-GLUCOSE METER (BEAKER) (test auuc=9759) 199 mg/dL 70-110 TESTED AT [address] [address] POCT-GLUCOSE [id number] 11:48:00* Test Item Value Reference Range Comments POC-GLUCOSE METER (BEAKER) (test zyuf=1898) 187 mg/dL 70-110 TESTED AT [address] [address] [place]CR[place] [id number] 10:32:00* Test Item Value Reference Range Comments TACROLIMUS BLOOD (BEAKER) (test hzcc=456) 5.8 ng/mL 10.0-20.0 HEMOGLOBIN [id number] 08:28:00* Test Item Value Reference Range Comments HEMOGLOBIN A1C (BEAKER) (test kkjg=729) 6.2 % 4.3-6.1 POCT-GLUCOSE [id number] 08:17:00* Test Item Value Reference Range Comments POC-GLUCOSE METER (BEAKER) (test qout=0564) 119 mg/dL 70-110 TESTED AT [address] [address] BASIC METABOLIC [id number] 07:03:00* Test Item Value Reference Range Comments SODIUM (BEAKER) (test sztd=675) 137 meq/L 136-145 POTASSIUM (BEAKER) (test cvna=029) 4.3 meq/L 3.5-5.1 CHLORIDE (BEAKER) (test cchw=528) 102 meq/L 98-107 CO2 (BEAKER) (test lquo=642) 26 meq/L 22-29 BLOOD UREA NITROGEN (BEAKER) (test mrfy=088) 40 mg/dL 7-21 CREATININE (BEAKER) (test tszn=965) 4.48 mg/dL 0.57-1.25 GLUCOSE RANDOM (BEAKER) (test wfym=058) 105 mg/dL 70-105 CALCIUM (BEAKER) (test soyo=276) 8.3 mg/dL 8.4-10.2 EGFR (BEAKER) (test xtjd=5002) 10 mL/min/1.73 sq m ESTIMATED GFR IS NOT ACCURATE CREATININE CLEARANCE IN PREDICTING GLOMERULAR FILTRATION RATE. ESTIMATED GFR IS NOT APPLICABLE FOR DIALYSIS PATIENTS. [id number] 07:01:00* Test Item Value Reference Range Comments PHOSPHORUS (BEAKER) (test fxqc=241) 3.8 mg/dL 2.3-4.7 [id number] 07:01:00* Test Item Value Reference Range Comments MAGNESIUM (BEAKER) (test jkea=573) 2.1 mg/dL 1.6-2.6 LIPID [id number] 07:01:00* Test Item Value Reference Range Comments TRIGLYCERIDES (BEAKER) (test wpyc=061) 104 mg/dL CHOLESTEROL (BEAKER) (test razl=657) 145 mg/dL HDL CHOLESTEROL (BEAKER) (test bwai=048) 39 mg/dL LDL CHOLESTEROL CALCULATED (BEAKER) (test qfrz=501) 85 mg/dL Triglyceride Reference Range: Low Risk <150 Borderline 150-199 High Risk 200-499 Very High Risk >=500Cholesterol Reference Range: Low Risk <200 Borderline 200-239 High Risk >240HDL Cholesterol Reference Range: Low Risk >=60 High Risk <40LDL Cholesterol Reference Range: Optimal <100 Near Optimal 100-129 Borderline 130-159 High 160-189 Very High >=190 HEPATIC FUNCTION [id number] 07:01:00* Test Item Value Reference Range Comments TOTAL PROTEIN (BEAKER) (test xbzv=573) 5.4 gm/dL 6.0-8.3 ALBUMIN (BEAKER) (test iggo=1670) 2.8 g/dL 3.5-5.0 BILIRUBIN TOTAL (BEAKER) (test aije=063) 0.3 mg/dL 0.2-1.2 BILIRUBIN DIRECT (BEAKER) (test vqcm=522) 0.1 mg/dL 0.1-0.5 ALKALINE PHOSPHATASE (BEAKER) (test vetq=252) 62 U/L 40-150 AST (SGOT) (BEAKER) (test miro=992) 30 U/L 5-34 ALT (SGPT) (BEAKER) (test emxd=834) 20 U/L 6-55 CALCIUM, [id number] 06:42:00* Test Item Value Reference Range Comments CALCIUM IONIZED (BEAKER) (test sbzx=318) 1.05 mmol/L 1.12-1.27 PH, BLOOD (BEAKER) (test gijw=9234) 7.40 CBC W/PLT COUNT & AUTO [id number] 06:38:00* Test Item Value Reference Range Comments WHITE BLOOD CELL COUNT (BEAKER) (test ufug=685) 7.7 K/ L 4.0-10.0 RED BLOOD CELL COUNT (BEAKER) (test veas=793) 2.51 M/ L 4.00-5.00 HEMOGLOBIN (BEAKER) (test laws=853) 7.5 GM/DL 12.0-15.0 HEMATOCRIT (BEAKER) (test xtai=130) 24.4 % 36.0-45.0 MEAN CORPUSCULAR VOLUME (BEAKER) (test pgdv=353) 97.2 fL 82.0-99.0 MEAN CORPUSCULAR HEMOGLOBIN (BEAKER) (test rfkw=435) 29.8 pg 27.0-33.0 MEAN CORPUSCULAR HEMOGLOBIN CONC (BEAKER) (test zazw=040) 30.6 GM/DL 32.0-36.0 RED CELL DISTRIBUTION WIDTH (BEAKER) (test jgri=787) 13.8 % 10.3-14.2 PLATELET COUNT (BEAKER) (test arai=718) 158 K/CU MM 150-430 MEAN PLATELET VOLUME (BEAKER) (test nhjt=968) 6.5 fL 6.5-10.5 NUCLEATED RED BLOOD CELLS (BEAKER) (test fgyo=821) 0 /100 WBC 0-0 NEUTROPHILS RELATIVE PERCENT (BEAKER) (test gzbv=340) 55 % LYMPHOCYTES RELATIVE PERCENT (BEAKER) (test rfja=985) 32 % MONOCYTES RELATIVE PERCENT (BEAKER) (test sufw=477) 8 % EOSINOPHILS RELATIVE PERCENT (BEAKER) (test tvqn=475) 4 % BASOPHILS RELATIVE PERCENT (BEAKER) (test slee=010) 1 % NEUTROPHILS ABSOLUTE COUNT (BEAKER) (test tran=855) 4.19 K/ L 1.80-8.00 LYMPHOCYTES ABSOLUTE COUNT (BEAKER) (test skzm=840) 2.46 K/ L 1.48-4.50 MONOCYTES ABSOLUTE COUNT (BEAKER) (test ebfn=683) 0.61 K/ L 0.00-1.30 EOSINOPHILS ABSOLUTE COUNT (BEAKER) (test sgji=894) 0.33 K/ L 0.00-0.50 BASOPHILS ABSOLUTE COUNT (BEAKER) (test rboi=238) 0.09 K/ L 0.00-0.20 0.00POCT-GLUCOSE [id number] 21:20:00* Test Item Value Reference Range Comments POC-GLUCOSE METER (BEAKER) (test ocpt=5648) 124 mg/dL 70-110 TESTED AT [facility] [address] [facility] [address] POCT-GLUCOSE [id number] 17:39:00* Test Item Value Reference Range Comments POC-GLUCOSE METER (BEAKER) (test owdc=3051) 172 mg/dL 70-110 TESTED AT [facility] [address] [facility] [address] CMV PCR, [id number] 14:25:00* Test Item Value Reference Range Comments CMV VIRAL LOAD - NEGATIVE (BEAKER) (test wxnk=4861) Negative or below the linear range of the assay (<375 copies/mL) Cytomegalovirus (CMV) infection can cause significant disease in immunosuppresse d patients. However, it is common for CMV to manifest as a limited infection whi ch is of no clinical significance in immunosuppressed patients or in healthy ind ividuals.Viral load measurements are helpful to identify clinical [...] chain reaction and fluorescent monitoring of a s pecific hybridized probe. Genetic variation and other factors can affect the acc uracy of nucleic acid testing. Therefore, the results should be interpreted in l ight of clinical data. A negative result may not exclude the presence of CMV dis ease.This test was developed and its performance characteristics determined by [facility] Pathology Department, Section of Molecular Patholog y. It has not been cleared or approved by the U.S. Food and Drug Administration (FDA), since FDA approval is not required for clinical use of the test. Validati on was done as required by The Clinical Laboratory Improvement Amendments of 198 8.POCT-GLUCOSE [id number] 12:30:00* Test Item Value Reference Range Comments POC-GLUCOSE METER (BEAKER) (test kyqy=1069) 179 mg/dL 70-110 TESTED AT [facility] [address] [facility] [address] TACROLIMUS [id number] 10:14:00* Test Item Value Reference Range Comments TACROLIMUS BLOOD (BEAKER) (test bcfo=861) 6.4 ng/mL 10.0-20.0 POCT-GLUCOSE [id number] 08:30:00* Test Item Value Reference Range Comments POC-GLUCOSE METER (BEAKER) (test elbb=5166) 113 mg/dL 70-110 TESTED AT [facility] [address] [facility] [address] CBC W/PLT COUNT & AUTO [id number] 06:17:00* Test Item Value Reference Range Comments WHITE BLOOD CELL COUNT (BEAKER) (test rpch=547) 8.3 K/ L 4.0-10.0 RED BLOOD CELL COUNT (BEAKER) (test bzen=682) 2.57 M/ L 4.00-5.00 HEMOGLOBIN (BEAKER) (test nlhr=923) 8.0 GM/DL 12.0-15.0 HEMATOCRIT (BEAKER) (test ixkw=122) 24.8 % 36.0-45.0 MEAN CORPUSCULAR VOLUME (BEAKER) (test etzt=726) 96.5 fL 82.0-99.0 MEAN CORPUSCULAR HEMOGLOBIN (BEAKER) (test neqz=352) 30.9 pg 27.0-33.0 MEAN CORPUSCULAR HEMOGLOBIN CONC (BEAKER) (test czuu=996) 32.1 GM/DL 32.0-36.0 RED CELL DISTRIBUTION WIDTH (BEAKER) (test bjwv=286) 12.2 % 10.3-14.2 PLATELET COUNT (BEAKER) (test xbed=702) 160 K/CU MM 150-430 MEAN PLATELET VOLUME (BEAKER) (test jdqv=114) 6.4 fL 6.5-10.5 NUCLEATED RED BLOOD CELLS (BEAKER) (test jujo=482) 0 /100 WBC 0-0 NEUTROPHILS RELATIVE PERCENT (BEAKER) (test prwm=182) 57 % LYMPHOCYTES RELATIVE PERCENT (BEAKER) (test rswo=156) 30 % MONOCYTES RELATIVE PERCENT (BEAKER) (test agfl=298) 8 % EOSINOPHILS RELATIVE PERCENT (BEAKER) (test gkzn=163) 3 % BASOPHILS RELATIVE PERCENT (BEAKER) (test uihu=026) 0 % NEUTROPHILS ABSOLUTE COUNT (BEAKER) (test dyyh=774) 4.76 K/ L 1.80-8.00 LYMPHOCYTES ABSOLUTE COUNT (BEAKER) (test plbv=726) 2.51 K/ L 1.48-4.50 MONOCYTES ABSOLUTE COUNT (BEAKER) (test iuen=203) 0.70 K/ L 0.00-1.30 EOSINOPHILS ABSOLUTE COUNT (BEAKER) (test yhvz=203) 0.29 K/ L 0.00-0.50 BASOPHILS ABSOLUTE COUNT (BEAKER) (test tqhl=397) 0.03 K/ L 0.00-0.20 0.00CALCIUM, [id number] 06:13:00* Test Item Value Reference Range Comments CALCIUM IONIZED (BEAKER) (test fxbu=408) 0.80 mmol/L 1.12-1.27 PH, BLOOD (BEAKER) (test okoa=9642) 7.45 [id number] 06:06:00* Test Item Value Reference Range Comments PHOSPHORUS (BEAKER) (test przm=361) 3.4 mg/dL 2.3-4.7 [id number] 06:06:00* Test Item Value Reference Range Comments MAGNESIUM (BEAKER) (test xdzr=957) 2.4 mg/dL 1.6-2.6 BASIC METABOLIC [id number] 06:06:00* Test Item Value Reference Range Comments SODIUM (BEAKER) (test hynn=944) 139 meq/L 136-145 POTASSIUM (BEAKER) (test ieuf=458) 4.0 meq/L 3.5-5.1 CHLORIDE (BEAKER) (test osam=163) 104 meq/L 98-107 CO2 (BEAKER) (test eqoo=537) 26 meq/L 22-29 BLOOD UREA NITROGEN (BEAKER) (test gjzv=393) 27 mg/dL 7-21 CREATININE (BEAKER) (test tans=987) 3.34 mg/dL 0.57-1.25 GLUCOSE RANDOM (BEAKER) (test ogpu=099) 104 mg/dL 70-105 CALCIUM (BEAKER) (test neid=127) 8.3 mg/dL 8.4-10.2 EGFR (BEAKER) (test dafe=6863) 14 mL/min/1.73 sq m ESTIMATED GFR IS NOT ACCURATE CREATININE CLEARANCE IN PREDICTING GLOMERULAR FILTRATION RATE. ESTIMATED GFR IS NOT APPLICABLE FOR DIALYSIS PATIENTS. POCT-GLUCOSE [id number] 22:40:00* Test Item Value Reference Range Comments POC-GLUCOSE METER (BEAKER) (test wmxq=5533) 109 mg/dL 70-110 TESTED AT [address] [address] POCT-GLUCOSE [id number] 18:16:00* Test Item Value Reference Range Comments POC-GLUCOSE METER (BEAKER) (test jtpt=3105) 120 mg/dL 70-110 TESTED AT [address] [address] HGB/HCT (H&H) - STAT [id number] 16:18:00* Test Item Value Reference Range Comments HEMOGLOBIN (BEAKER) (test eskf=028) 7.3 g/dL 12.0-15.0 HEMATOCRIT (BEAKER) (test ayio=768) 21.0 % 36.0-45.0 GLUCOSE-STAT [id number] 16:16:00* Test Item Value Reference Range Comments GLUCOSE RANDOM (BEAKER) (test itvq=954) 96 mg/dL 70-110 POTASSIUM-STAT [id number] 16:16:00* Test Item Value Reference Range Comments POTASSIUM (BEAKER) (test rqcn=749) 3.5 meq/L 3.6-5.5 POCT-GLUCOSE [id number] 13:30:00* Test Item Value Reference Range Comments POC-GLUCOSE METER (BEAKER) (test bsnb=0746) 119 mg/dL 70-110 TESTED AT [address] [address] [place] [id number] 12:17:00* Test Item Value Reference Range Comments TACROLIMUS BLOOD (BEAKER) (test sqhn=449) 7.0 ng/mL 10.0-20.0 POCT-GLUCOSE [id number] 09:06:00* Test Item Value Reference Range Comments POC-GLUCOSE METER (BEAKER) (test bzwl=0936) 89 mg/dL 70-110 TESTED AT [facility] [address] [facility] [address] CBC W/PLT COUNT & AUTO [id number] 07:53:00* Test Item Value Reference Range Comments WHITE BLOOD CELL COUNT (BEAKER) (test jdqq=112) 7.9 K/ L 4.0-10.0 RED BLOOD CELL COUNT (BEAKER) (test ygmt=577) 2.78 M/ L 4.00-5.00 HEMOGLOBIN (BEAKER) (test zihw=016) 8.6 GM/DL 12.0-15.0 HEMATOCRIT (BEAKER) (test rosd=333) 26.5 % 36.0-45.0 MEAN CORPUSCULAR VOLUME (BEAKER) (test fypq=828) 95.4 fL 82.0-99.0 MEAN CORPUSCULAR HEMOGLOBIN (BEAKER) (test bhyk=476) 30.9 pg 27.0-33.0 MEAN CORPUSCULAR HEMOGLOBIN CONC (BEAKER) (test wpgb=399) 32.4 GM/DL 32.0-36.0 RED CELL DISTRIBUTION WIDTH (BEAKER) (test wdqm=721) 13.7 % 10.3-14.2 PLATELET COUNT (BEAKER) (test pssf=239) 171 K/CU MM 150-430 MEAN PLATELET VOLUME (BEAKER) (test aifr=340) 6.9 fL 6.5-10.5 NUCLEATED RED BLOOD CELLS (BEAKER) (test gfxu=752) 0 /100 WBC 0-0 NEUTROPHILS RELATIVE PERCENT (BEAKER) (test qdmi=549) 58 % LYMPHOCYTES RELATIVE PERCENT (BEAKER) (test gvct=728) 30 % MONOCYTES RELATIVE PERCENT (BEAKER) (test fxks=016) 8 % EOSINOPHILS RELATIVE PERCENT (BEAKER) (test ycsj=911) 4 % BASOPHILS RELATIVE PERCENT (BEAKER) (test kfto=496) 1 % NEUTROPHILS ABSOLUTE COUNT (BEAKER) (test jgtk=052) 4.52 K/ L 1.80-8.00 LYMPHOCYTES ABSOLUTE COUNT (BEAKER) (test qwhj=563) 2.34 K/ L 1.48-4.50 MONOCYTES ABSOLUTE COUNT (BEAKER) (test kpdt=605) 0.65 K/ L 0.00-1.30 EOSINOPHILS ABSOLUTE COUNT (BEAKER) (test qscu=991) 0.31 K/ L 0.00-0.50 BASOPHILS ABSOLUTE COUNT (BEAKER) (test luwz=889) 0.05 K/ L 0.00-0.20 0.00CALCIUM, [id number] 07:05:00* Test Item Value Reference Range Comments CALCIUM IONIZED (BEAKER) (test namj=670) 0.97 mmol/L 1.12-1.27 PH, BLOOD (BEAKER) (test lsdc=9764) 7.49 BASIC METABOLIC [id number] 06:52:00* Test Item Value Reference Range Comments SODIUM (BEAKER) (test vzxv=827) 137 meq/L 136-145 POTASSIUM (BEAKER) (test xgel=991) 3.7 meq/L 3.5-5.1 CHLORIDE (BEAKER) (test axoc=999) 102 meq/L 98-107 CO2 (BEAKER) (test aupy=542) 26 meq/L 22-29 BLOOD UREA NITROGEN (BEAKER) (test ijmw=503) 18 mg/dL 7-21 CREATININE (BEAKER) (test zvla=150) 2.09 mg/dL 0.57-1.25 GLUCOSE RANDOM (BEAKER) (test pxgr=011) 77 mg/dL 70-105 CALCIUM (BEAKER) (test tnmr=214) 8.2 mg/dL 8.4-10.2 EGFR (BEAKER) (test yjsh=3351) 24 mL/min/1.73 sq m ESTIMATED GFR IS NOT ACCURATE CREATININE CLEARANCE IN PREDICTING GLOMERULAR FILTRATION RATE. ESTIMATED GFR IS NOT APPLICABLE FOR DIALYSIS PATIENTS. [id number] 06:49:00* Test Item Value Reference Range Comments PHOSPHORUS (BEAKER) (test copu=705) 1.6 mg/dL 2.3-4.7 [id number] 06:49:00* Test Item Value Reference Range Comments MAGNESIUM (BEAKER) (test lkxj=133) 1.7 mg/dL 1.6-2.6 [id number] 06:44:00* Test Item Value Reference Range Comments PARTIAL THROMBOPLASTIN TIME (BEAKER) (test vdda=224) 47.9 seconds 22.5-36.0 PROTHROMBIN TIME/[id number] 06:43:00* Test Item Value Reference Range Comments PROTIME (EcohausAKER) (test zkjy=650) 13.8 seconds 11.7-14.7 INR (BEAKER) (test vemm=993) 1.1 <=5.9 RECOMMENDED COUMADIN/WARFARIN INR THERAPY RANGESSTANDARD DOSE: 2.0 - 3.0 Inclu linette: PROPHYLAXIS for venous thrombosis, systemic embolization; TREATMENT for kimmy ous thrombosis and/or pulmonary embolus.HIGH RISK: Target INR is 2.5-3.5 for pat ients with mechanical heart valves.POCT-GLUCOSE [id number] 21:36:00* Test Item Value Reference Range Comments POC-GLUCOSE METER ([employer]) (test cfel=3733) 177 mg/dL 70-110 TESTED AT [address] [address] POCT-GLUCOSE [id number] 16:55:00* Test Item Value Reference Range Comments POC-GLUCOSE METER ([employer]) (test vocy=5151) 202 mg/dL 70-110 TESTED AT [address] [address] POCT-GLUCOSE [id number] 14:40:00* Test Item Value Reference Range Comments POC-GLUCOSE METER ([employer]) (test fptk=1694) 109 mg/dL 70-110 TESTED AT [address] [address] CLOSTRIDIUM DIFFICILE TOXIN [id number] 14:10:00* Test Item Value Reference Range Comments CLOSTRIDIUM DIFFICILE TOXIN, PCR ([employer]) (test bxfi=8340) Not Detected Not Detected This qualitative real-time polymerase chain reaction assay detects the tcdB gene , encoded on the C.difficile pathogenicity locus (PaLoc). The product of tcdB, toxin B, is a cytotoxin essential for causing C.difficile-associated disease (CD AD) and is found in virtually all toxigenic C.difficile.This assay is performed for patients suspected of having either community-acquired or nosocomial CDAD. Accordingly, only symptomatic patients should be tested and formed stools will b e rejected unless ileus is present (i.e., specified when ordering). Patients ma y be colonized with toxigenic C.difficile strains not causing active disease; th erefore, clinical correlation is needed when deciding how to manage patients wit h a positive test result.The assay has not been validated as a test of cure as a mplifiable nucleic acid may persist after effective treatment; therefore, follow -up testing of a positive result is not recommended.TACROLIMUS [id number] 09:36:00* Test Item Value Reference Range Comments TACROLIMUS BLOOD (BEAKER) (test yooy=400) 9.5 ng/mL 10.0-20.0 POCT-GLUCOSE [id number] 09:18:00* Test Item Value Reference Range Comments POC-GLUCOSE METER (BEAKER) (test ebcf=5763) 102 mg/dL 70-110 TESTED AT [facility] [address] [facility] [address] BASIC METABOLIC [id number] 06:51:00* Test Item Value Reference Range Comments SODIUM (BEAKER) (test xnhp=882) 138 meq/L 136-145 POTASSIUM (BEAKER) (test gmpg=986) 4.0 meq/L 3.5-5.1 CHLORIDE (BEAKER) (test gyth=681) 109 meq/L 98-107 CO2 (BEAKER) (test kepi=196) 19 meq/L 22-29 BLOOD UREA NITROGEN (BEAKER) (test nqik=494) 47 mg/dL 7-21 CREATININE (BEAKER) (test sqce=262) 3.65 mg/dL 0.57-1.25 GLUCOSE RANDOM (BEAKER) (test uqzt=862) 107 mg/dL 70-105 CALCIUM (BEAKER) (test scok=320) 8.8 mg/dL 8.4-10.2 EGFR (BEAKER) (test shrf=7328) 13 mL/min/1.73 sq m ESTIMATED GFR IS NOT ACCURATE CREATININE CLEARANCE IN PREDICTING GLOMERULAR FILTRATION RATE. ESTIMATED GFR IS NOT APPLICABLE FOR DIALYSIS PATIENTS. CBC W/PLT COUNT & AUTO [id number] 06:17:00* Test Item Value Reference Range Comments WHITE BLOOD CELL COUNT (BEAKER) (test xcdg=625) 10.6 K/ L 4.0-10.0 RED BLOOD CELL COUNT (BEAKER) (test ygap=740) 2.68 M/ L 4.00-5.00 HEMOGLOBIN (BEAKER) (test fzwe=015) 8.7 GM/DL 12.0-15.0 HEMATOCRIT (BEAKER) (test ujmk=547) 26.1 % 36.0-45.0 MEAN CORPUSCULAR VOLUME (BEAKER) (test wphy=515) 97.6 fL 82.0-99.0 MEAN CORPUSCULAR HEMOGLOBIN (BEAKER) (test yxwk=052) 32.4 pg 27.0-33.0 MEAN CORPUSCULAR HEMOGLOBIN CONC (BEAKER) (test diue=328) 33.3 GM/DL 32.0-36.0 RED CELL DISTRIBUTION WIDTH (BEAKER) (test qtkw=354) 12.2 % 10.3-14.2 PLATELET COUNT (BEAKER) (test ldpj=110) 178 K/CU MM 150-430 MEAN PLATELET VOLUME (BEAKER) (test fqsf=571) 6.6 fL 6.5-10.5 NUCLEATED RED BLOOD CELLS (BEAKER) (test zeum=634) 0 /100 WBC 0-0 NEUTROPHILS RELATIVE PERCENT (BEAKER) (test faiw=158) 65 % LYMPHOCYTES RELATIVE PERCENT (BEAKER) (test iipw=055) 28 % MONOCYTES RELATIVE PERCENT (BEAKER) (test iigh=016) 5 % EOSINOPHILS RELATIVE PERCENT (BEAKER) (test cdha=625) 2 % BASOPHILS RELATIVE PERCENT (BEAKER) (test nzqd=972) 0 % NEUTROPHILS ABSOLUTE COUNT (BEAKER) (test hzmr=042) 6.83 K/ L 1.80-8.00 LYMPHOCYTES ABSOLUTE COUNT (BEAKER) (test lvig=147) 2.93 K/ L 1.48-4.50 MONOCYTES ABSOLUTE COUNT (BEAKER) (test neyl=391) 0.57 K/ L 0.00-1.30 EOSINOPHILS ABSOLUTE COUNT (BEAKER) (test zzzm=684) 0.21 K/ L 0.00-0.50 BASOPHILS ABSOLUTE COUNT (BEAKER) (test avjf=030) 0.02 K/ L 0.00-0.20 [id number] 06:15:00* Test Item Value Reference Range Comments PHOSPHORUS (BEAKER) (test dtaf=786) 3.2 mg/dL 2.3-4.7 [id number] 06:15:00* Test Item Value Reference Range Comments MAGNESIUM (BEAKER) (test obdx=500) 2.1 mg/dL 1.6-2.6 POCT-GLUCOSE [id number] 21:56:00* Test Item Value Reference Range Comments POC-GLUCOSE METER (BEAKER) (test dnno=8761) 158 mg/dL 70-110 TESTED AT [facility] [address] [facility] [address] POCT-GLUCOSE [id number] 18:05:00* Test Item Value Reference Range Comments POC-GLUCOSE METER (BEAKER) (test ekot=5758) 200 mg/dL 70-110 TESTED AT [address] [address] POCT-GLUCOSE [id number] 12:10:00* Test Item Value Reference Range Comments POC-GLUCOSE METER (BEAKER) (test xeat=4370) 126 mg/dL 70-110 TESTED AT [address] [address] TACROLIMUS [id number] 09:55:00* Test Item Value Reference Range Comments TACROLIMUS BLOOD (BEAKER) (test sdsi=431) 8.9 ng/mL 10.0-20.0 POCT-GLUCOSE [id number] 08:00:00* Test Item Value Reference Range Comments POC-GLUCOSE METER (BEAKER) (test mfrp=3798) 127 mg/dL 70-110 TESTED AT [address] [address] [address] BASIC METABOLIC [id number] 06:28:00* Test Item Value Reference Range Comments SODIUM (BEAKER) (test zcnq=607) 140 meq/L 136-145 POTASSIUM (BEAKER) (test mfgu=778) 3.7 meq/L 3.5-5.1 CHLORIDE (BEAKER) (test ckkz=691) 106 meq/L 98-107 CO2 (BEAKER) (test cdxz=065) 26 meq/L 22-29 BLOOD UREA NITROGEN (BEAKER) (test pyia=961) 30 mg/dL 7-21 CREATININE (BEAKER) (test psbz=293) 2.62 mg/dL 0.57-1.25 GLUCOSE RANDOM (BEAKER) (test oepe=154) 155 mg/dL 70-105 CALCIUM (BEAKER) (test agkm=319) 8.6 mg/dL 8.4-10.2 EGFR (BEAKER) (test dwkd=4973) 19 mL/min/1.73 sq m ESTIMATED GFR IS NOT ACCURATE CREATININE CLEARANCE IN PREDICTING GLOMERULAR FILTRATION RATE. ESTIMATED GFR IS NOT APPLICABLE FOR DIALYSIS PATIENTS. [id number] 06:25:00* Test Item Value Reference Range Comments PHOSPHORUS (BEAKER) (test ewdo=766) 3.2 mg/dL 2.3-4.7 [id number] 06:25:00* Test Item Value Reference Range Comments MAGNESIUM (BEAKER) (test pefc=574) 2.1 mg/dL 1.6-2.6 CBC W/PLT COUNT & AUTO [id number] 05:50:00* Test Item Value Reference Range Comments WHITE BLOOD CELL COUNT (BEAKER) (test vehi=486) 9.4 K/ L 4.0-10.0 RED BLOOD CELL COUNT (BEAKER) (test jdvo=121) 2.63 M/ L 4.00-5.00 HEMOGLOBIN (BEAKER) (test jril=300) 8.3 GM/DL 12.0-15.0 HEMATOCRIT (BEAKER) (test iwvy=094) 25.1 % 36.0-45.0 MEAN CORPUSCULAR VOLUME (BEAKER) (test cynq=461) 95.5 fL 82.0-99.0 MEAN CORPUSCULAR HEMOGLOBIN (BEAKER) (test vwqt=775) 31.4 pg 27.0-33.0 MEAN CORPUSCULAR HEMOGLOBIN CONC (BEAKER) (test misq=089) 32.9 GM/DL 32.0-36.0 RED CELL DISTRIBUTION WIDTH (BEAKER) (test kfld=739) 12.1 % 10.3-14.2 PLATELET COUNT (BEAKER) (test zirj=423) 177 K/CU MM 150-430 MEAN PLATELET VOLUME (BEAKER) (test qdsf=948) 7.0 fL 6.5-10.5 NUCLEATED RED BLOOD CELLS (BEAKER) (test teun=959) 0 /100 WBC 0-0 NEUTROPHILS RELATIVE PERCENT (BEAKER) (test qiar=146) 73 % LYMPHOCYTES RELATIVE PERCENT (BEAKER) (test fffw=410) 20 % MONOCYTES RELATIVE PERCENT (BEAKER) (test mttg=916) 5 % EOSINOPHILS RELATIVE PERCENT (BEAKER) (test ihzu=335) 1 % BASOPHILS RELATIVE PERCENT (BEAKER) (test uqyz=707) 0 % NEUTROPHILS ABSOLUTE COUNT (BEAKER) (test rhsi=679) 6.91 K/ L 1.80-8.00 LYMPHOCYTES ABSOLUTE COUNT (BEAKER) (test fugz=417) 1.93 K/ L 1.48-4.50 MONOCYTES ABSOLUTE COUNT (BEAKER) (test hjkf=828) 0.51 K/ L 0.00-1.30 EOSINOPHILS ABSOLUTE COUNT (BEAKER) (test xulo=925) 0.08 K/ L 0.00-0.50 BASOPHILS ABSOLUTE COUNT (BEAKER) (test yiou=175) 0.02 K/ L 0.00-0.20 0.00POCT-GLUCOSE [id number] 18:43:00* Test Item Value Reference Range Comments POC-GLUCOSE METER (BEAKER) (test pzru=7516) 94 mg/dL 70-110 TESTED AT [facility] [address] [facility] [address] POCT-GLUCOSE [id number] 12:46:00* Test Item Value Reference Range Comments POC-GLUCOSE METER (BEAKER) (test mkqk=9643) 89 mg/dL 70-110 TESTED AT [facility] [address] [facility] [address] TACROLIMUS [id number] 09:55:00* Test Item Value Reference Range Comments TACROLIMUS BLOOD (BEAKER) (test cpxh=839) 10.1 ng/mL 10.0-20.0 HEPATITIS PANEL, [id number] 08:40:00* Test Item Value Reference Range Comments HEPATITIS A IGM ANTIBODY (BEAKER) (test efxg=189) Nonreactive Nonreactive HEPATITIS B CORE IGM ANTIBODY (BEAKER) (test audn=988) Nonreactive Nonreactive HEPATITIS C ANTIBODY (BEAKER) (test jfbd=032) Reactive Nonreactive HEPATITIS B SURFACE ANTIGEN (2) (BEAKER) (test fgya=6262) Nonreactive Nonreactive INTERPRETATION-551 (BEAKER) (test kfws=6837) See Result Comments. [id number] (BEAKER) (test iees=3090) Farzad Luna M.D. (electonic signature) Hepatitis C exposure detected - likelihood of infectivity is high.Additional pietro ts are recommended prior to initiation of therapy (Quantitative HCV-PCR;Genotype ).No evidence of acute Hepatitis A. For evaluation of immune status, please ord er anti-HAV Total (IgG & IgM).No evidence of Hepatitis B.BASIC METABOLIC PANEL 2017-01-15 07:43:00* Test Item Value Reference Range Comments SODIUM (BEAKER) (test voiy=744) 130 meq/L 136-145 POTASSIUM (BEAKER) (test mntb=659) 4.6 meq/L 3.5-5.1 CHLORIDE (BEAKER) (test xetg=103) 98 meq/L 98-107 CO2 (BEAKER) (test oqfq=049) 21 meq/L 22-29 BLOOD UREA NITROGEN (BEAKER) (test jseg=101) 51 mg/dL 7-21 CREATININE (BEAKER) (test hneq=287) 3.80 mg/dL 0.57-1.25 GLUCOSE RANDOM (BEAKER) (test odoa=730) 89 mg/dL 70-105 CALCIUM (BEAKER) (test sfkb=845) 8.6 mg/dL 8.4-10.2 EGFR (BEAKER) (test jfvo=9049) 12 mL/min/1.73 sq m ESTIMATED GFR IS NOT ACCURATE CREATININE CLEARANCE IN PREDICTING GLOMERULAR FILTRATION RATE. ESTIMATED GFR IS NOT APPLICABLE FOR DIALYSIS PATIENTS. [id number] 07:42:00* Test Item Value Reference Range Comments PHOSPHORUS (BEAKER) (test yuhx=410) 4.7 mg/dL 2.3-4.7 [id number] 07:42:00* Test Item Value Reference Range Comments MAGNESIUM (BEAKER) (test duht=041) 2.3 mg/dL 1.6-2.6 CBC W/PLT COUNT & AUTO [id number] 07:22:00* Test Item Value Reference Range Comments WHITE BLOOD CELL COUNT (BEAKER) (test ztqg=093) 9.3 K/ L 4.0-10.0 RED BLOOD CELL COUNT (BEAKER) (test nowl=902) 2.70 M/ L 4.00-5.00 HEMOGLOBIN (BEAKER) (test ylst=021) 8.6 GM/DL 12.0-15.0 HEMATOCRIT (BEAKER) (test fsmq=829) 25.9 % 36.0-45.0 MEAN CORPUSCULAR VOLUME (BEAKER) (test zsmn=689) 96.0 fL 82.0-99.0 MEAN CORPUSCULAR HEMOGLOBIN (BEAKER) (test aqru=495) 31.8 pg 27.0-33.0 MEAN CORPUSCULAR HEMOGLOBIN CONC (BEAKER) (test gcma=624) 33.1 GM/DL 32.0-36.0 RED CELL DISTRIBUTION WIDTH (BEAKER) (test nmah=823) 12.1 % 10.3-14.2 PLATELET COUNT (BEAKER) (test tlol=088) 151 K/CU MM 150-430 MEAN PLATELET VOLUME (BEAKER) (test ggxf=336) 6.6 fL 6.5-10.5 NUCLEATED RED BLOOD CELLS (BEAKER) (test honf=668) 0 /100 WBC 0-0 NEUTROPHILS RELATIVE PERCENT (BEAKER) (test bqon=920) 71 % LYMPHOCYTES RELATIVE PERCENT (BEAKER) (test pmvw=941) 22 % MONOCYTES RELATIVE PERCENT (BEAKER) (test ouhv=152) 6 % EOSINOPHILS RELATIVE PERCENT (BEAKER) (test lsxb=474) 1 % BASOPHILS RELATIVE PERCENT (BEAKER) (test llqm=748) 0 % NEUTROPHILS ABSOLUTE COUNT (BEAKER) (test mtxm=948) 6.65 K/ L 1.80-8.00 LYMPHOCYTES ABSOLUTE COUNT (BEAKER) (test zjbt=363) 2.02 K/ L 1.48-4.50 MONOCYTES ABSOLUTE COUNT (BEAKER) (test scth=953) 0.56 K/ L 0.00-1.30 EOSINOPHILS ABSOLUTE COUNT (BEAKER) (test skez=271) 0.05 K/ L 0.00-0.50 BASOPHILS ABSOLUTE COUNT (BEAKER) (test hwbv=980) 0.04 K/ L 0.00-0.20 0.00POCT-GLUCOSE [id number] 22:14:00* Test Item Value Reference Range Comments POC-GLUCOSE METER (BEAKER) (test ajor=6789) 152 mg/dL 70-110 TESTED AT [facility] [address] [facility] [address] URINE PROTEIN ELECTROPHORESIS, [id number] 16:43:00* Test Item Value Reference Range Comments PROTEIN, URINE (BEAKER) (test btly=1275) 291 mg/dL 0-14 ALBUMIN URINE ELP (BEAKER) (test dtfl=5502) 66.8 % GAMMA GLOBULIN URINE (BEAKER) (test jnut=3561) 33.2 % UPEP, ID-438 (BEAKER) (test ooof=1335) No monoclonal bands detected. [id number]-[id number]-256 (BEAKER) (test furd=5463) Eliane Rodrigues MD (electronic signature) HEPATIC FUNCTION [id number] 16:01:00* Test Item Value Reference Range Comments TOTAL PROTEIN (BEAKER) (test kscc=353) 5.2 gm/dL 6.0-8.3 ALBUMIN (BEAKER) (test ivjp=1019) 2.7 g/dL 3.5-5.0 BILIRUBIN TOTAL (BEAKER) (test lxmn=270) 0.3 mg/dL 0.2-1.2 BILIRUBIN DIRECT (BEAKER) (test wept=235) 0.1 mg/dL 0.1-0.5 ALKALINE PHOSPHATASE (BEAKER) (test gdhq=854) 66 U/L 40-150 AST (SGOT) (BEAKER) (test ague=425) 43 U/L 5-34 ALT (SGPT) (BEAKER) (test ogqb=029) 24 U/L 6-55 VISCOSITY, [id number] 15:56:00* Test Item Value Reference Range Comments VISCOSITY, SERUM (BEAKER) (test udvp=7337) 1.3 rel.viscosity 1.4-1.8 POCT-GLUCOSE [id number] 12:24:00* Test Item Value Reference Range Comments POC-GLUCOSE METER (BEAKER) (test ibuk=6108) 118 mg/dL 70-110 TESTED AT [facility] [address] [facility] [address] TACROLIMUS [id number] 12:14:00* Test Item Value Reference Range Comments TACROLIMUS BLOOD (BEAKER) (test eqcp=074) 7.0 ng/mL 10.0-20.0 BLOOD GAS, [id number] 10:24:00* Test Item Value Reference Range Comments PH ARTERIAL (BEAKER) (test kitz=406) 7.43 7.35-7.45 PCO2 ARTERIAL (BEAKER) (test tydj=499) 41 mmHg 35-45 PO2 ARTERIAL (BEAKER) (test mqxk=389) 75 mmHg 80-90 O2 SATURATION ARTERIAL (BEAKER) (test brzy=352) 95.6 % 96.0-97.0 HCO3 ARTERIAL (BEAKER) (test zcds=294) 27 mmol/L 21-29 BASE EXCESS ARTERIAL (BEAKER) (test fsps=182) 2.2 mmol/L -2.0-3.0 PATIENT TEMPERATURE (BEAKER) (test miqf=0741) 36.6 C FIO2 (BEAKER) (test elfd=1336) 24.0 % VITAMIN B12 AND [id number] 09:02:00* Test Item Value Reference Range Comments VITAMIN B12 (BEAKER) (test mrhe=882) 496 pg/mL 213-816 FOLATE (BEAKER) (test fcqf=748) 35.0 ng/mL >=7.0 Effective 06/11/2014: Folate Reference Range ChangeNew: >=7.0 Previous: >=5.4 POCT-GLUCOSE [id number] 09:01:00* Test Item Value Reference Range Comments POC-GLUCOSE METER (BEAKER) (test umck=3005) 99 mg/dL 70-110 TESTED AT [facility] [address] [facility] [address] CBC W/PLT COUNT & AUTO [id number] 07:25:00* Test Item Value Reference Range Comments WHITE BLOOD CELL COUNT (BEAKER) (test izkk=798) 8.6 K/ L 4.0-10.0 RED BLOOD CELL COUNT (BEAKER) (test txow=463) 2.58 M/ L 4.00-5.00 HEMOGLOBIN (BEAKER) (test tjcv=954) 8.4 GM/DL 12.0-15.0 HEMATOCRIT (BEAKER) (test rtto=996) 24.5 % 36.0-45.0 MEAN CORPUSCULAR VOLUME (BEAKER) (test izdz=027) 94.7 fL 82.0-99.0 Discordant from previous results MEAN CORPUSCULAR HEMOGLOBIN (BEAKER) (test vqss=969) 32.4 pg 27.0-33.0 MEAN CORPUSCULAR HEMOGLOBIN CONC (BEAKER) (test ciap=636) 34.2 GM/DL 32.0-36.0 RED CELL DISTRIBUTION WIDTH (BEAKER) (test pyua=165) 13.9 % 10.3-14.2 PLATELET COUNT (BEAKER) (test rndl=069) 150 K/CU MM 150-430 MEAN PLATELET VOLUME (BEAKER) (test lhjl=593) 6.6 fL 6.5-10.5 NUCLEATED RED BLOOD CELLS (BEAKER) (test cixp=077) 0 /100 WBC 0-0 NEUTROPHILS RELATIVE PERCENT (BEAKER) (test ahsp=239) 61 % LYMPHOCYTES RELATIVE PERCENT (BEAKER) (test xqnr=422) 28 % MONOCYTES RELATIVE PERCENT (BEAKER) (test cvgj=178) 9 % EOSINOPHILS RELATIVE PERCENT (BEAKER) (test hncx=263) 2 % BASOPHILS RELATIVE PERCENT (BEAKER) (test nvda=497) 0 % NEUTROPHILS ABSOLUTE COUNT (BEAKER) (test binc=734) 5.21 K/ L 1.80-8.00 LYMPHOCYTES ABSOLUTE COUNT (BEAKER) (test ogqu=081) 2.36 K/ L 1.48-4.50 MONOCYTES ABSOLUTE COUNT (BEAKER) (test uhbu=887) 0.79 K/ L 0.00-1.30 EOSINOPHILS ABSOLUTE COUNT (BEAKER) (test phed=437) 0.15 K/ L 0.00-0.50 BASOPHILS ABSOLUTE COUNT (BEAKER) (test olia=217) 0.04 K/ L 0.00-0.20 0.00BASIC METABOLIC [id number] 07:11:00* Test Item Value Reference Range Comments SODIUM (BEAKER) (test bqgi=667) 133 meq/L 136-145 POTASSIUM (BEAKER) (test imzt=629) 4.3 meq/L 3.5-5.1 CHLORIDE (BEAKER) (test jhse=357) 100 meq/L 98-107 CO2 (BEAKER) (test hbrv=126) 26 meq/L 22-29 BLOOD UREA NITROGEN (BEAKER) (test aztd=598) 40 mg/dL 7-21 CREATININE (BEAKER) (test ruhc=206) 3.12 mg/dL 0.57-1.25 GLUCOSE RANDOM (BEAKER) (test hdmi=410) 90 mg/dL 70-105 CALCIUM (BEAKER) (test gytj=316) 8.2 mg/dL 8.4-10.2 EGFR (BEAKER) (test heyp=1963) 15 mL/min/1.73 sq m ESTIMATED GFR IS NOT ACCURATE CREATININE CLEARANCE IN PREDICTING GLOMERULAR FILTRATION RATE. ESTIMATED GFR IS NOT APPLICABLE FOR DIALYSIS PATIENTS. [id number] 07:09:00* Test Item Value Reference Range Comments PHOSPHORUS (BEAKER) (test plmd=211) 3.1 mg/dL 2.3-4.7 [id number] 07:09:00* Test Item Value Reference Range Comments MAGNESIUM (BEAKER) (test cawg=593) 1.5 mg/dL 1.6-2.6 CALCIUM, [id number] 06:49:00* Test Item Value Reference Range Comments CALCIUM IONIZED (BEAKER) (test jgjm=892) 0.88 mmol/L 1.12-1.27 PH, BLOOD (BEAKER) (test pcvi=6676) 7.39 POCT-GLUCOSE [id number] 21:41:00* Test Item Value Reference Range Comments POC-GLUCOSE METER (BEAKER) (test yfug=2089) 142 mg/dL 70-110 TESTED AT [address] [address] POCT-GLUCOSE [id number] 18:11:00* Test Item Value Reference Range Comments POC-GLUCOSE METER (BEAKER) (test thze=9864) 130 mg/dL 70-110 TESTED AT [place] [address] HEPATITIS C PCR, [id number] 13:38:00* Test Item Value Reference Range Comments HCV RESULT COMPONENT (BEAKER) (test zsqm=8384) HCV RNA not detected HCV RNA not detected This test uses a Real-Time Polymerase Chain Reaction (RT-PCR) methodology and wa s performed using SERA Ampliprep/SERA TaqMan HCV test kit version 2.0 ([employer]).Reportable range for this assay is 15 - 100,000,000 IU per mL (1.18 - 8.00 Log IU/mL).PROTEIN, 24 HOUR [id number] 13:36:00* Test Item Value Reference Range Comments PROTEIN, 24HR URINE (BEAKER) (test fcrs=9190) 1926 mg/24hr 0-300 VOLUME, TOTAL (BEAKER) (test hron=6717) 600 ml PROTEIN, URINE (BEAKER) (test jkmx=7287) 321 mg/dL 0-14 Start after random urine sentPOCT-GLUCOSE [id number] 12:11:00* Test Item Value Reference Range Comments POC-GLUCOSE METER (BEAKER) (test uscv=6268) 169 mg/dL 70-110 TESTED AT [address] [address] CBC W/PLT COUNT & AUTO [id number] 08:40:00* Test Item Value Reference Range Comments WHITE BLOOD CELL COUNT (BEAKER) (test syqx=205) 7.4 K/ L 4.0-10.0 RED BLOOD CELL COUNT (BEAKER) (test ozii=045) 2.07 M/ L 4.00-5.00 HEMOGLOBIN (BEAKER) (test foth=925) 6.5 GM/DL 12.0-15.0 HEMATOCRIT (BEAKER) (test qstd=287) 20.9 % 36.0-45.0 MEAN CORPUSCULAR VOLUME (BEAKER) (test ofls=503) 101.0 fL 82.0-99.0 MEAN CORPUSCULAR HEMOGLOBIN (BEAKER) (test puur=228) 31.4 pg 27.0-33.0 MEAN CORPUSCULAR HEMOGLOBIN CONC (BEAKER) (test rrtu=386) 31.1 GM/DL 32.0-36.0 RED CELL DISTRIBUTION WIDTH (BEAKER) (test rxdi=363) 13.9 % 10.3-14.2 PLATELET COUNT (BEAKER) (test ovhr=691) 170 K/CU MM 150-430 MEAN PLATELET VOLUME (BEAKER) (test pasj=181) 6.8 fL 6.5-10.5 NUCLEATED RED BLOOD CELLS (BEAKER) (test rnee=884) 0 /100 WBC 0-0 NEUTROPHILS RELATIVE PERCENT (BEAKER) (test ctpg=247) 56 % LYMPHOCYTES RELATIVE PERCENT (BEAKER) (test nico=877) 35 % MONOCYTES RELATIVE PERCENT (BEAKER) (test tzpn=980) 8 % EOSINOPHILS RELATIVE PERCENT (BEAKER) (test hpwr=453) 2 % BASOPHILS RELATIVE PERCENT (BEAKER) (test vdzg=654) 1 % NEUTROPHILS ABSOLUTE COUNT (BEAKER) (test mcrh=571) 4.10 K/ L 1.80-8.00 LYMPHOCYTES ABSOLUTE COUNT (BEAKER) (test wbbq=420) 2.55 K/ L 1.48-4.50 MONOCYTES ABSOLUTE COUNT (BEAKER) (test knya=085) 0.58 K/ L 0.00-1.30 EOSINOPHILS ABSOLUTE COUNT (BEAKER) (test ypdg=067) 0.12 K/ L 0.00-0.50 BASOPHILS ABSOLUTE COUNT (BEAKER) (test elgz=515) 0.04 K/ L 0.00-0.20 0.00HEPATITIS B [id number] 08:14:00* Test Item Value Reference Range Comments HEPATITIS B CORE TOTAL ANTIBODY (BEAKER) (test lzpx=284) Nonreactive Nonreactive HEPATITIS B SURFACE ANTIBODY (BEAKER) (test atbg=411) < mIU/mL <8.0 HEPATITIS B SURFACE ANTIGEN (2) (BEAKER) (test zdpb=5958) Nonreactive Nonreactive [id number] 08:03:00* Test Item Value Reference Range Comments FERRITIN (BEAKER) (test ghzy=713) 606 ng/mL 5-275 Effective 06/11/2014: Reference Range ChangeNew: Male 5-275 Previous: Male 22-322 Female 5-275 Female 10-291 BASIC METABOLIC PANEL 2017-01-13 07:57:00* Test Item Value Reference Range Comments SODIUM (BEAKER) (test avov=632) 136 meq/L 136-145 POTASSIUM (BEAKER) (test smir=898) 5.2 meq/L 3.5-5.1 CHLORIDE (BEAKER) (test elhw=574) 109 meq/L 98-107 CO2 (BEAKER) (test phzk=801) 16 meq/L 22-29 BLOOD UREA NITROGEN (BEAKER) (test lroj=167) 81 mg/dL 7-21 CREATININE (BEAKER) (test yznv=271) 5.54 mg/dL 0.57-1.25 GLUCOSE RANDOM (BEAKER) (test ydkc=867) 112 mg/dL 70-105 CALCIUM (BEAKER) (test ctwm=216) 8.0 mg/dL 8.4-10.2 EGFR (BEAKER) (test qkos=9183) 8 mL/min/1.73 sq m ESTIMATED GFR IS NOT ACCURATE CREATININE CLEARANCE IN PREDICTING GLOMERULAR FILTRATION RATE. ESTIMATED GFR IS NOT APPLICABLE FOR DIALYSIS PATIENTS. POCT-GLUCOSE [id number] 07:55:00* Test Item Value Reference Range Comments POC-GLUCOSE METER (BEAKER) (test stjw=8389) 140 mg/dL 70-110 TESTED AT [facility] [address] [facility] [place] [address] IRON, TIBC, % SAT. (WITHOUT FERRITIN)2017-01-13 07:50:00* Test Item Value Reference Range Comments IRON (BEAKER) (test rcgw=359) 71 ug/dL 40-160 TOTAL IRON BINDING CAPACITY (BEAKER) (test pdnb=933) 181 ug/dL 250-450 IRON % SATURATION (2) (BEAKER) (test ykjc=0813) 39 % 20-55 [id number] 07:47:00* Test Item Value Reference Range Comments PHOSPHORUS (BEAKER) (test dojh=529) 5.5 mg/dL 2.3-4.7 [id number] 07:47:00* Test Item Value Reference Range Comments MAGNESIUM (BEAKER) (test qmyp=606) 2.0 mg/dL 1.6-2.6 [id number] 07:35:00* Test Item Value Reference Range Comments PROTIME (BEAKER) (test lesf=836) 12.5 seconds 11.7-14.7 INR (BEAKER) (test uzup=717) 0.9 <=5.9 PARTIAL THROMBOPLASTIN TIME (BEAKER) (test iogu=693) 29.4 seconds 22.5-36.0 RECOMMENDED COUMADIN/WARFARIN INR THERAPY RANGESSTANDARD DOSE: 2.0 - 3.0 Inclu linette: PROPHYLAXIS for venous thrombosis, systemic embolization; TREATMENT for kimmy ous thrombosis and/or pulmonary embolus.HIGH RISK: Target INR is 2.5-3.5 for pat ients with mechanical heart valves.POCT-GLUCOSE [id number] 00:57:00* Test Item Value Reference Range Comments POC-GLUCOSE METER (BEAKER) (test gpvo=6723) 151 mg/dL 70-110 TESTED AT [facility] [address] [place] [address] URINE [id number] 18:57:00* Test Item Value Reference Range Comments CULTURE (BEAKER) (test zmsu=0516) <10,000 col/mL skin jasbir ANTI-NUCLEAR ANTIBODY (DEB)2017-01-12 13:55:00* Test Item Value Reference Range Comments ANTI-NUCLEAR ANTIBODY (DEB) (BEAKER) (test tspa=588) Negative Negative PROTEIN ELECTROPHORESIS, [id number] 11:41:00* Test Item Value Reference Range Comments ALBUMIN FRACTION (BEAKER) (test pbge=114) 2.7 g/dL 3.5-5.5 ALPHA 1 FRACTION (BEAKER) (test sxvf=065) 0.2 g/dL 0.2-0.4 ALPHA 2 FRACTION (BEAKER) (test ysqt=363) 0.6 g/dL 0.5-0.9 BETA FRACTION (BEAKER) (test eulo=213) 0.9 g/dL 0.6-1.1 GAMMA GLOBULIN FRACTION (BEAKER) (test ruby=834) 0.6 g/dL 0.7-1.7 INTERPRETATION-119 (BEAKER) (test bqmh=8165) Decrease albumin and gamma globulins, suggestive of renal loss or protein-losing enteropathy. Elevation of alpha/beta fractions suggestive of acute inflammatory response. No monoclonal bands detected. [id number] (BEAKER) (test jvtv=0776) Eliane Rodrigues MD (electronic signature) PROTEIN TOTAL SERUM, SPEP (BEAKER) (test frns=4995) 5.0 gm/dL 6.0-8.3 CBC W/PLT COUNT & AUTO [id number] 08:17:00* Test Item Value Reference Range Comments WHITE BLOOD CELL COUNT (BEAKER) (test mfaw=912) 5.6 K/ L 4.0-10.0 RED BLOOD CELL COUNT (BEAKER) (test ifct=246) 2.19 M/ L 4.00-5.00 HEMOGLOBIN (BEAKER) (test ygzm=073) 7.0 GM/DL 12.0-15.0 HEMATOCRIT (BEAKER) (test aowo=295) 21.4 % 36.0-45.0 MEAN CORPUSCULAR VOLUME (BEAKER) (test awko=851) 97.5 fL 82.0-99.0 MEAN CORPUSCULAR HEMOGLOBIN (BEAKER) (test hlga=023) 31.9 pg 27.0-33.0 MEAN CORPUSCULAR HEMOGLOBIN CONC (BEAKER) (test hjgs=684) 32.7 GM/DL 32.0-36.0 RED CELL DISTRIBUTION WIDTH (BEAKER) (test nkkw=328) 14.0 % 10.3-14.2 PLATELET COUNT (BEAKER) (test tbjy=045) 166 K/CU MM 150-430 MEAN PLATELET VOLUME (BEAKER) (test lqqa=084) 6.7 fL 6.5-10.5 NUCLEATED RED BLOOD CELLS (BEAKER) (test tvaq=401) 0 /100 WBC 0-0 NEUTROPHILS RELATIVE PERCENT (BEAKER) (test zsxk=431) 54 % LYMPHOCYTES RELATIVE PERCENT (BEAKER) (test igdf=118) 38 % MONOCYTES RELATIVE PERCENT (BEAKER) (test uict=618) 7 % EOSINOPHILS RELATIVE PERCENT (BEAKER) (test bqhd=826) 1 % BASOPHILS RELATIVE PERCENT (BEAKER) (test xgfu=744) 1 % NEUTROPHILS ABSOLUTE COUNT (BEAKER) (test keqs=669) 3.01 K/ L 1.80-8.00 LYMPHOCYTES ABSOLUTE COUNT (BEAKER) (test dbzs=908) 2.14 K/ L 1.48-4.50 MONOCYTES ABSOLUTE COUNT (BEAKER) (test zuki=219) 0.38 K/ L 0.00-1.30 EOSINOPHILS ABSOLUTE COUNT (BEAKER) (test babv=173) 0.06 K/ L 0.00-0.50 BASOPHILS ABSOLUTE COUNT (BEAKER) (test cfbz=415) 0.03 K/ L 0.00-0.20 0.00TACROLIMUS [id number] 08:13:00* Test Item Value Reference Range Comments TACROLIMUS BLOOD (BEAKER) (test tuiq=394) 5.2 ng/mL 10.0-20.0 [id number] 06:27:00* Test Item Value Reference Range Comments PHOSPHORUS (BEAKER) (test ndsu=822) 6.0 mg/dL 2.3-4.7 [id number] 06:27:00* Test Item Value Reference Range Comments MAGNESIUM (BEAKER) (test jogy=517) 2.2 mg/dL 1.6-2.6 BASIC METABOLIC [id number] 06:27:00* Test Item Value Reference Range Comments SODIUM (BEAKER) (test uiga=951) 138 meq/L 136-145 POTASSIUM (BEAKER) (test znzv=445) 4.9 meq/L 3.5-5.1 CHLORIDE (BEAKER) (test msmw=050) 109 meq/L 98-107 CO2 (BEAKER) (test itzu=213) 19 meq/L 22-29 BLOOD UREA NITROGEN (BEAKER) (test zfki=485) 65 mg/dL 7-21 CREATININE (BEAKER) (test xuud=612) 5.54 mg/dL 0.57-1.25 GLUCOSE RANDOM (BEAKER) (test wcvj=674) 131 mg/dL 70-105 CALCIUM (BEAKER) (test xscx=433) 8.0 mg/dL 8.4-10.2 EGFR (BEAKER) (test fdsm=5832) 8 mL/min/1.73 sq m ESTIMATED GFR IS NOT ACCURATE CREATININE CLEARANCE IN PREDICTING GLOMERULAR FILTRATION RATE. ESTIMATED GFR IS NOT APPLICABLE FOR DIALYSIS PATIENTS. POCT-GLUCOSE [id number] 22:03:00* Test Item Value Reference Range Comments POC-GLUCOSE METER (BEAKER) (test qoyn=4879) 193 mg/dL 70-110 TESTED AT [facility] [address] [facility] [address] POCT-GLUCOSE [id number] 19:07:00* Test Item Value Reference Range Comments POC-GLUCOSE METER (BEAKER) (test hxda=6629) 107 mg/dL 70-110 TESTED AT [facility] [address] [facility] [address] PROTEIN, RANDOM [id number] 16:37:00* Test Item Value Reference Range Comments PROTEIN, URINE (BEAKER) (test luix=3089) 532 mg/dL 0-14 VITAMIN D, [id number] 15:27:00* Test Item Value Reference Range Comments VITAMIN D 25-OH (BEAKER) (test axtj=7288) 19.5 ng/mL 13.0-47.8 EOSINOPHIL SMEAR, [id number] 13:37:00* Test Item Value Reference Range Comments EOSINOPHIL SMEAR, URINE (BEAKER) (test zguq=3730) No EOS seen No EOS seen CREATININE, RANDOM [id number] 13:11:00* Test Item Value Reference Range Comments CREATININE URINE (BEAKER) (test ouyg=991) 92.5 mg/dL Reference Range: No NormalsHEMOGLOBIN AND [id number] 12:54:00* Test Item Value Reference Range Comments HEMOGLOBIN (BEAKER) (test fftq=125) 7.0 GM/DL 12.0-15.0 HEMATOCRIT (BEAKER) (test bole=038) 21.3 % 36.0-45.0 COMPLEMENT COMPONENT [id number] 12:51:00* Test Item Value Reference Range Comments C4 COMPLEMENT (BEAKER) (test nmlc=243) 33 mg/dL 15-57 Effective 06/11/2014: Reference Range ChangeNew: 15-57 Previous: 16-38 COMPLEMENT COMPONENT [id number] 12:51:00* Test Item Value Reference Range Comments C3 COMPLEMENT (BEAKER) (test knqk=031) 101 mg/dL 82-193 Effective 06/11/2014: Reference Range ChangeNew: 82-193 Previous: 79-152PTH, [id number] 12:19:00* Test Item Value Reference Range Comments PARATHYROID HORMONE INTACT (BEAKER) (test clhx=422) 148.3 pg/mL 8.5-72.5 Effective 06/11/2014: Reference Range ChangeNew: 8.5-72.5 Previous: 15.0-90.0 POCT-GLUCOSE [id number] 11:43:00* Test Item Value Reference Range Comments POC-GLUCOSE METER (BEAKER) (test bqzr=6756) 133 mg/dL 70-110 TESTED AT [facility] [address] [facility] [address] TACROLIMUS [id number] 09:39:00* Test Item Value Reference Range Comments TACROLIMUS BLOOD (BEAKER) (test ainb=243) 4.3 ng/mL 10.0-20.0 TACROLIMUS [id number] 09:26:00* Test Item Value Reference Range Comments TACROLIMUS BLOOD (BEAKER) (test bgjb=476) 5.3 ng/mL 10.0-20.0 OSMOLALITY, [id number] 08:20:00* Test Item Value Reference Range Comments OSMOLALITY, SERUM (BEAKER) (test qmxw=783) 307 mOsm/kg 275-295 OSMOLALITY, [id number] 08:18:00* Test Item Value Reference Range Comments OSMOLALITY URINE (BEAKER) (test pzpi=122) 373 mOsm/kg 40-1400 URINALYSIS W/ [id number] 07:43:00* Test Item Value Reference Range Comments COLOR (BEAKER) (test qevo=760) Yellow CLARITY (BEAKER) (test kpzo=635) Clear SPECIFIC GRAVITY UA (BEAKER) (test xlpq=064) 1.016 1.001-1.035 PH UA (BEAKER) (test uwpu=415) 8.0 5.0-8.0 PROTEIN UA (BEAKER) (test iyej=127) 600 mg/dL Negative GLUCOSE UA (BEAKER) (test czsp=828) Negative Negative KETONES UA (BEAKER) (test jzjw=092) Negative Negative BILIRUBIN UA (BEAKER) (test tguf=496) Negative Negative BLOOD UA (BEAKER) (test meaw=847) Negative Negative NITRITE UA (BEAKER) (test eibh=718) Negative Negative LEUKOCYTE ESTERASE UA (BEAKER) (test gzhf=863) Small Negative UROBILINOGEN UA (BEAKER) (test gxkf=956) 0.2 mg/dL 0.2-1.0 RBC UA (BEAKER) (test mdgr=680) 5 /HPF WBC UA (BEAKER) (test hvux=781) 44 /HPF BACTERIA (BEAKER) (test wsrg=200) Occasional MUCUS (BEAKER) (test blzi=7535) Rare SOURCE(BEAKER) (test biyo=6487) Urine, [place] POCT-GLUCOSE [id number] 07:28:00* Test Item Value Reference Range Comments POC-GLUCOSE METER (BEAKER) (test syyp=1627) 114 mg/dL 70-110 TESTED AT [facility] [address] [facility] [address] CREATININE, RANDOM [id number] 06:33:00* Test Item Value Reference Range Comments CREATININE URINE (BEAKER) (test ijcu=207) 93.3 mg/dL Reference Range: No NormalsPOTASSIUM, RANDOM [id number] 06:33:00* Test Item Value Reference Range Comments POTASSIUM URINE (BEAKER) (test yldn=459) 31.2 meq/L Reference Range: No NormalsSODIUM, RANDOM [id number] 06:33:00* Test Item Value Reference Range Comments SODIUM URINE (BEAKER) (test zjlb=745) 49 meq/L Reference Range: No [id number] 03:49:00* Test Item Value Reference Range Comments PHOSPHORUS (BEAKER) (test oukm=759) 5.5 mg/dL 2.3-4.7 [id number] 03:49:00* Test Item Value Reference Range Comments MAGNESIUM (BEAKER) (test cokn=763) 2.2 mg/dL 1.6-2.6 HEPATIC FUNCTION [id number] 03:49:00* Test Item Value Reference Range Comments TOTAL PROTEIN (BEAKER) (test jxzn=099) 5.1 gm/dL 6.0-8.3 ALBUMIN (BEAKER) (test xwpm=0975) 2.7 g/dL 3.5-5.0 BILIRUBIN TOTAL (BEAKER) (test atfc=185) 0.2 mg/dL 0.2-1.2 BILIRUBIN DIRECT (BEAKER) (test bhby=156) 0.1 mg/dL 0.1-0.5 ALKALINE PHOSPHATASE (BEAKER) (test ycri=806) 80 U/L 40-150 AST (SGOT) (BEAKER) (test xyvv=869) 76 U/L 5-34 ALT (SGPT) (BEAKER) (test uqsp=208) 47 U/L 6-55 BASIC METABOLIC [id number] 03:49:00* Test Item Value Reference Range Comments SODIUM (BEAKER) (test utts=463) 139 meq/L 136-145 POTASSIUM (BEAKER) (test aibt=648) 4.5 meq/L 3.5-5.1 CHLORIDE (BEAKER) (test vazf=497) 113 meq/L 98-107 CO2 (BEAKER) (test oafs=875) 16 meq/L 22-29 BLOOD UREA NITROGEN (BEAKER) (test kzfm=773) 52 mg/dL 7-21 CREATININE (BEAKER) (test hsem=431) 4.67 mg/dL 0.57-1.25 GLUCOSE RANDOM (BEAKER) (test lzcs=072) 113 mg/dL 70-105 CALCIUM (BEAKER) (test ekpu=190) 8.2 mg/dL 8.4-10.2 EGFR (BEAKER) (test jixs=8471) 10 mL/min/1.73 sq m ESTIMATED GFR IS NOT ACCURATE CREATININE CLEARANCE IN PREDICTING GLOMERULAR FILTRATION RATE. ESTIMATED GFR IS NOT APPLICABLE FOR DIALYSIS PATIENTS. CBC W/PLT COUNT & AUTO [id number] 03:26:00* Test Item Value Reference Range Comments WHITE BLOOD CELL COUNT (BEAKER) (test xelk=731) 6.1 K/ L 4.0-10.0 RED BLOOD CELL COUNT (BEAKER) (test qpws=324) 2.23 M/ L 4.00-5.00 HEMOGLOBIN (BEAKER) (test fnft=612) 7.0 GM/DL 12.0-15.0 HEMATOCRIT (BEAKER) (test lbcm=301) 21.3 % 36.0-45.0 MEAN CORPUSCULAR VOLUME (BEAKER) (test lagd=544) 95.3 fL 82.0-99.0 MEAN CORPUSCULAR HEMOGLOBIN (BEAKER) (test bouc=859) 31.5 pg 27.0-33.0 MEAN CORPUSCULAR HEMOGLOBIN CONC (BEAKER) (test qmsc=036) 33.1 GM/DL 32.0-36.0 RED CELL DISTRIBUTION WIDTH (BEAKER) (test kwgs=412) 13.6 % 10.3-14.2 PLATELET COUNT (BEAKER) (test cqjf=725) 163 K/CU MM 150-430 MEAN PLATELET VOLUME (BEAKER) (test kfrk=001) 6.3 fL 6.5-10.5 NUCLEATED RED BLOOD CELLS (BEAKER) (test omxx=537) 0 /100 WBC 0-0 NEUTROPHILS RELATIVE PERCENT (BEAKER) (test oaut=666) 51 % LYMPHOCYTES RELATIVE PERCENT (BEAKER) (test vkzz=610) 39 % MONOCYTES RELATIVE PERCENT (BEAKER) (test yuci=356) 6 % EOSINOPHILS RELATIVE PERCENT (BEAKER) (test xkrb=405) 3 % BASOPHILS RELATIVE PERCENT (BEAKER) (test dlxp=430) 1 % NEUTROPHILS ABSOLUTE COUNT (BEAKER) (test ubuq=545) 3.10 K/ L 1.80-8.00 LYMPHOCYTES ABSOLUTE COUNT (BEAKER) (test qshd=919) 2.40 K/ L 1.48-4.50 MONOCYTES ABSOLUTE COUNT (BEAKER) (test wekm=885) 0.39 K/ L 0.00-1.30 EOSINOPHILS ABSOLUTE COUNT (BEAKER) (test rbiv=256) 0.15 K/ L 0.00-0.50 BASOPHILS ABSOLUTE COUNT (BEAKER) (test jyav=325) 0.06 K/ L 0.00-0.20 [id number] 23:06:00* Test Item Value Reference Range Comments MAGNESIUM (BEAKER) (test doch=248) 2.1 mg/dL 1.6-2.6 POCT-GLUCOSE [id number] 22:53:00* Test Item Value Reference Range Comments POC-GLUCOSE METER (BEAKER) (test lewe=3831) 144 mg/dL 70-110 TESTED AT [facility] [address] [facility] [address] HEPATIC FUNCTION [id number] 20:10:00* Test Item Value Reference Range Comments TOTAL PROTEIN (BEAKER) (test zltj=669) 5.4 gm/dL 6.0-8.3 ALBUMIN (BEAKER) (test ewyn=1950) 2.8 g/dL 3.5-5.0 BILIRUBIN TOTAL (BEAKER) (test ibmx=732) 0.2 mg/dL 0.2-1.2 BILIRUBIN DIRECT (BEAKER) (test ahvm=081) 0.1 mg/dL 0.1-0.5 ALKALINE PHOSPHATASE (BEAKER) (test oobr=115) 85 U/L 40-150 AST (SGOT) (BEAKER) (test xsqh=532) 115 U/L 5-34 ALT (SGPT) (BEAKER) (test lxfy=811) 62 U/L 6-55 [id number] 19:59:00* Test Item Value Reference Range Comments PARTIAL THROMBOPLASTIN TIME (BEAKER) (test ohnk=038) 28.6 seconds 22.5-36.0 PROTHROMBIN TIME/[id number] 19:58:00* Test Item Value Reference Range Comments PROTIME (BEAKER) (test afus=745) 14.0 seconds 11.7-14.7 INR (BEAKER) (test qjmu=306) 1.1 <=5.9 RECOMMENDED COUMADIN/WARFARIN INR THERAPY RANGESSTANDARD DOSE: 2.0 - 3.0 Inclu linette: PROPHYLAXIS for venous thrombosis, systemic embolization; TREATMENT for kimmy ous thrombosis and/or pulmonary embolus.HIGH RISK: Target INR is 2.5-3.5 for pat ients with mechanical heart valves.BASIC METABOLIC [id number] 16:52:00* Test Item Value Reference Range Comments SODIUM (BEAKER) (test kogc=064) 139 meq/L 136-145 POTASSIUM (BEAKER) (test yofu=036) 4.0 meq/L 3.5-5.1 CHLORIDE (BEAKER) (test ispl=981) 111 meq/L 98-107 CO2 (BEAKER) (test swts=094) 17 meq/L 22-29 BLOOD UREA NITROGEN (BEAKER) (test tqoi=655) 52 mg/dL 7-21 CREATININE (BEAKER) (test amnb=712) 4.52 mg/dL 0.57-1.25 GLUCOSE RANDOM (BEAKER) (test wkko=830) 123 mg/dL 70-105 CALCIUM (BEAKER) (test rgvj=478) 8.4 mg/dL 8.4-10.2 EGFR (BEAKER) (test gqnj=6330) 10 mL/min/1.73 sq m ESTIMATED GFR IS NOT ACCURATE CREATININE CLEARANCE IN PREDICTING GLOMERULAR FILTRATION RATE. ESTIMATED GFR IS NOT APPLICABLE FOR DIALYSIS PATIENTS. [id number] 16:44:00* Test Item Value Reference Range Comments PHOSPHORUS (BEAKER) (test vwfz=436) 4.5 mg/dL 2.3-4.7 [id number] 16:44:00* Test Item Value Reference Range Comments MAGNESIUM (BEAKER) (test urfo=749) 1.4 mg/dL 1.6-2.6 CBC W/PLT COUNT & AUTO [id number] 16:34:00* Test Item Value Reference Range Comments WHITE BLOOD CELL COUNT (BEAKER) (test xoxm=627) 8.9 K/ L 4.0-10.0 RED BLOOD CELL COUNT (BEAKER) (test tuzn=065) 2.34 M/ L 4.00-5.00 HEMOGLOBIN (BEAKER) (test qnmq=697) 7.6 GM/DL 12.0-15.0 HEMATOCRIT (BEAKER) (test airf=283) 22.2 % 36.0-45.0 MEAN CORPUSCULAR VOLUME (BEAKER) (test oahc=111) 94.7 fL 82.0-99.0 MEAN CORPUSCULAR HEMOGLOBIN (BEAKER) (test bbbt=813) 32.5 pg 27.0-33.0 MEAN CORPUSCULAR HEMOGLOBIN CONC (BEAKER) (test nwmi=863) 34.3 GM/DL 32.0-36.0 RED CELL DISTRIBUTION WIDTH (BEAKER) (test uzkf=316) 12.3 % 10.3-14.2 PLATELET COUNT (BEAKER) (test chwc=755) 183 K/CU MM 150-430 MEAN PLATELET VOLUME (BEAKER) (test vzxq=066) 5.7 fL 6.5-10.5 NUCLEATED RED BLOOD CELLS (BEAKER) (test wpkl=453) 0 /100 WBC 0-0 NEUTROPHILS RELATIVE PERCENT (BEAKER) (test wyul=245) 54 % LYMPHOCYTES RELATIVE PERCENT (BEAKER) (test lcfk=443) 36 % MONOCYTES RELATIVE PERCENT (BEAKER) (test uucb=491) 7 % EOSINOPHILS RELATIVE PERCENT (BEAKER) (test rmrv=760) 2 % BASOPHILS RELATIVE PERCENT (BEAKER) (test lmqn=758) 1 % NEUTROPHILS ABSOLUTE COUNT (BEAKER) (test vidc=312) 4.77 K/ L 1.80-8.00 LYMPHOCYTES ABSOLUTE COUNT (BEAKER) (test qxtk=177) 3.22 K/ L 1.48-4.50 MONOCYTES ABSOLUTE COUNT (BEAKER) (test igwk=341) 0.66 K/ L 0.00-1.30 EOSINOPHILS ABSOLUTE COUNT (BEAKER) (test gaqf=608) 0.17 K/ L 0.00-0.50 BASOPHILS ABSOLUTE COUNT (BEAKER) (test mske=424) 0.05 K/ L 0.00-0.20 0.00POCT-GLUCOSE [id number] 06:59:00* Test Item Value Reference Range Comments POC-GLUCOSE METER (BEAKER) (test lyrf=8774) 177 mg/dL 70-110 TESTED AT [address] [address] POCT-GLUCOSE [id number] 08:22:00* Test Item Value Reference Range Comments POC-GLUCOSE METER (BEAKER) (test slxv=1494) 146 mg/dL 70-110 TESTED AT [address] [address] - MRI BRAIN W/O [id number] 18:53:00 FAX: Jaydon Collins MD [phone] [place]: St: [facility] FAX: Elsie Galan MD [phone] Name: FUNMI MONTERROSO [facility] : 1955 Age/S: 61/F [address] Unit #: [id number] Loc: [place] [address] Phys: Jaydon Collins MD Acct: [id number] Dis Date: Status: UNK PHONE #: [phone] Exam Date: 05/23/2016 1800 FAX #: [phone] Reason: STROKE EXAMS: CPT CODE: [id number] MRI BRAIN W/O CONTRAST 88961 REASON FOR EXAM: STROKE Exam Order Date: 05/23/2016 12:12 PM Attending Jimenez: Jaydon Collins MD Procedure: - MRI BRAIN W/O CONTRAST Comparison: FINDINGS: Axial, sagittal, and coronal images of the head were obtained using T1, T2 weighted, inversion recovery, and gradient echo sequences. The diffusion images are within normal limits without evidence of acute infarct. No IV gadolinium was given. The sagittal images show normal pituitary, cerebellum, and brain stem. No evidence of suprasellar mass. The axial T2, inversion recovery, and gradient echo images show no evid ence of intra or extra axial mass. The ventricles, cisterns, and sulci are minimally prominent. No evidence of hemorrhage. Nonspecific bright signal intensities seen in the paraventricular region consistent with small isc hemic vessel disease The cerebellar pontine angle area is within n ormal limits. There is no evidence of mass noted. The axial T1 images show no evidence of mass. Chronic small bilateral cerebe llar infarcts and punctate infarcts of the bilateral caudate nucleus heads . The coronal images show normal optic chiasm. IMP RESSION: Nonspecific deep white matter disease. Small chronic bilateral cerebellar infarcts and punctate lacunar infarcts in the heads of the c audate nucleus. at 1853 Reported and signed by: Robbi Kamara M.D. PAG E 1 Signed Report (CONTINUED) FAX: Jaydon Collins MD [phone] [place]: St: [facility] FAX: Elsie Rodriguez MD [phone] Name: MONTERROSOFUNMI [facility] : 1955 Age/S: 61/F [address] Unit #: [id number] Loc: [place] [address] Phys: Jaydon Collins MD Acct: [id number] Dis Date: Status: UNKimberly PHONE #: [phone] Exam Date: 05/23/2016 1800 FAX #: [phone] Reason: STROKE EXAMS: CPT CODE: [id number] MRI BRAIN W/O CONTRAST 93981 < Continued> CC: Jaydon Collins MD; Elsie Hallman MD Technologist: Jalen Dao)(MR) Trnscrd Date/Time/By: 05/23/2016 (1852) : By: FelibertoVTL Orig Print D/T: S: 05/23/2016 (1855) PAGE 2 Signed Report - XR CHEST 1 V 2016-05-18 19:01:00 FAX: Gloira James MD [phone] [place]: St: [facility] FAX: Elsie Galan MD [phone] Name: FUNMI MONTERROSO [facility] : 1955 Age/S: 61/F [address] Unit #: [id number] Loc: [place] [address] Phys: Gloria Jain MD Acct: [id number] Dis Date: Status: UNDuo Security PHONE #: [phone] Exam Date: 05/18/2016 1835 FAX #: [phone] Reason: NG TUBE PLACEMENT EXAMS: CPT CODE: [id number] XR CHEST 1 V 16118 EXAM: Chest x-ray, one view; INFORMATION: NG tube placement; CVA; IMPRESSION: 1. The previously seen endotracheal tube has been removed. 2. Otherwise no significant change compared with the study obtained earlier today: Well-positioned nasogastric tube and well- positioned central line. 3. No evidence of acute cardiothoracic abnormalities. at 190 Reported and signed by: Albaro Dumont M.D. CC: Gloria Jain MD; Elsie Hallman MD Technologist: DINORA MORALES; Kapil Rogers, RT(R Trnscrd Date/Time/By: 05/18/2016 (1900) : By: FelibertoGRW Orig Print D/T: S: 05/18/2016 (1903) PAGE 1 Signed Report - XR CHEST 1 [id number] 08:51:00 FAX: Gloria James MD [phone] [place]: St: [facility] FAX: Elsie Galan MD [phone] Name: FUNMI MONTERROSO [facility] : 1955 Age/S: 61/F [address] [facility] Unit #: [id number] Loc: [place] [address] Phys: Gloria Jain MD Acct: [id number] Dis Date: Status: UNK PHONE #: [phone] Exam Date: 05/18/2016 08 FAX #: [phone] Reason: MD ORDER EXAMS: CPT CODE: [id number] XR CHEST 1 V 27143 CLINICAL HISTORY: Cerebrovascular accident; intubated TECHNIQUE: AP chest x-ray COMPARISON: Previous day. IMPRESSION: No significant interval change. No airspace consolidation or pleural effusion. Mild cardiomegaly. Atherosclerotic va scular calcification of the thoracic aorta. NG tube advanced further int o the stomach. ET tube and right central venous catheter in stable posit ion. at 0851 Reported and signed by: Leola Begum D.O. CC: Gloria Jain MD; Elsie Hallman MD Stacey hnologist: Netta Castro RT(R); STUDENT TECHNOLOGIST Trnscrd Date/T wilda/By: 05/18/2016 (0851) : By: [email or web address] Orig Print D/T: S: 6 (3907) PAGE 1 Signed Report - US GUIDANCE VASC [id number] 16:30:00 Name: FUNMI MONTERROSO [facility] : 1955 Age/S: 61 / F [address] Unit #: [id number] Loc: [place] [address] Phys: True Hallman MD Acct: [id number] Di s Date: Status: UNK PHONE #: Exam Date: 05/17/2016 1623 FAX #: Reason: EXAMS: CPT CODE: [id number] US GUIDANCE VASC ACCESS 43919 Fluoro Time: 0 DAP (Gy m2): 0 Air Kerma (mGy): 0 REASON FOR EXAM: Respiratory f ailure Exam Order Date: 05/17/2016 4:00 PM Attending Jimenez: Elsie Hallman MD PROCEDURE: Ultrasound guided central line placement CPT code: 74988, 72160 FINDINGS: After i nformed consent was obtained, [facility] The right neck was prepped and draped in the usual fashion. All elements of maximal sterile barrier technique were followed. Ultrasou nd showed patency of the right IJ. No thrombus identified, the vein is pat ent. Images of the vein were submitted to PACS. Under real time ultrasound guidance, a micropuncture needle was used to access the vein. A catheter was inserted with the tip positioned within the SVC. The catheter was sutured to the subcutaneous tissue and is ready for use. MEDICAT IONS: None. COMPLICATIONS: None. Blood Loss: less th an 5cc IMPRESSION: Right IJ triple lumen central line is ready f or use. at 1635 Reported and signed by: Robbi Kamara M.D. CC: Elsie Lainez MD Technologist: FELICIA JONES Trnscb Date/Time: 05/17/2016 (163) [email or web address] Orig Print D/T: S: 05/17/2016 (8649) PAGE 1 Signed Report - XR CHEST 1 V 2016-05-17 16:24:00 FAX: Elsie Galan MD [phone] [place]: St: UNK Name: FUNMI DA SILVA [facility] : [birth year] Age/S: 61/F [address] [facility] Unit #: [id number] Loc: [place] [address] Phys: Robbi Kamara MD Acct: [id number] Dis Date: Status: UNK PHONE #: [phone] Exam Date: 05/17/2016 1620 FAX #: [phone] Reason: S/P CENTRAL LINE EXAMS: CPT CODE: [id number] XR CHEST 1 V 70476 REASON FOR EXAM: S/P CENTRAL LINE EXAM ORDER DATE: 05/17/2016 12:00 AM Ordering Jimenez: Robbi Kamara MD PROCEDURE: - XR CHEST 1 V CO MPARISON: 05/17/2016 at 4:58 AM FINDINGS: Portable AP frontal vie w of the chest obtained at 4:20 PM shows clear lungs. There is no evidence of consolidation. There is no evidence of effusion. The heart size is min imally enlarged. Pulmonary vasculatures are unremarkable. Stable appearan ce of the ET tube. The NG tube has been advanced further into the stomach IMPRESSION: Newly placed right IJ triple lumen central line tip is in the SVC. Electronically Signed by Jimenez Kamara on at 1624 Reported and signed by: Robbi Kamara M.D. CC: Elsie Hallman MD chnologist: Chaparrita Cruz RT(R); ... Trnscrd Date/ Time/By: 05/17/2016 (4234) : By: Juan.VTL Orig Print D/T: S: 05/17/20 16 (1400) PAGE 1 Signed Report - XR CHEST 1 [id number] 07:11:00 FAX: Elsie Galan MD [phone] [place]: St: [facility] FAX: Dana Mann MD [phone] Name: FUNMI MONTERROSO [facility] : 1955 Age/S: 61/F [address] [facility] Unit #: [id number] Loc: [place] [address] Phys: Dana Newman MD Acct: [id number] Dis Date: Status: UNK PHONE #: [phone] Exam Date: 05/17/2016 0505 FAX #: [phone] Reason: INTUBATED EXAMS: CPT CODE: [id number] XR CHEST 1 V 26989 HISTORY: Intubated and CVA. COMPARISON: Previous day. ET tube and NG tube are noted. NG tube side-port is in the distal esophagus. This should the advanced 15 cm for better positioning. No acute infiltrates, effusion or congestion. Cardiac silhouette is mildly enlarged. IMPRESSION: NG tube side-port in the mid to distal esophagus which could be advanced 15 cm for better positioning. No acute infiltrates, effusion or congestion. at 0711 Reported and signed by: Nazario Flynn M.D. CC: Elsie Hallman MD; Dana Newman MD Technologist: Galina Montemayor RT(R); Liz Lan Trnscrd Date/Time/By: 05/17/2016 (0711) : By: [email or web address] Orig Print D/T: S: 05/17/2016 (0714) PAGE 1 Signed Report - XR ABDOMEN AP 1 [id number] 12:14:00 FAX: Gloria James MD [phone] [place]: St: [facility] FAX: Elsie Galan MD [phone] Name: FUNMI MONTERROSO [facility] : 1955 Age/S: 61/F [address] [facility] Unit #: [id number] Loc: [place] [address] Phys: Gloria Jain MD Acct: [id number] Dis Date: Status: UNK PHONE #: [phone] Exam Date: 05/16/2016 1155 FAX #: [phone] Reason: VERIFY OG PLACEMENT EXAMS: CPT CODE: [id number] XR ABDOMEN AP 1 V 93732 HISTORY: Verify tube placement. COMPARISON: Chest x- ray from same day. NG tube tip and side-port in the distal esoph kavon. This should be advanced 13 cm for better positioning. No bowel obs truction. Constipation. The lower abdomen is not included. IMPRESSION: NG tube side-port in the distal esophagus which could be advanced 13 cm for better positioning. E lectronically Signed by Jimenez Flynn on 05/16/2016 at 1214 Reported and signed by: Nazario Flynn M.D. CC: Gloria Jain MD; Elsie Hallman MD Technologist: Chaparrita Cruz RT(R) Trnscrd Date/Time/By: 05/16/2016 (1 214) : By: [email or web address] Orig Print D/T: S: 05/16/2016 (7465) PAGE 1 Signed Report - XR CHEST 1 [id number] 12:12:00 FAX: Gloria James MD [phone] [place]: St: [facility] FAX: Elsie Galan MD [phone] Name: FUNMI MONTERROSO [facility] : 1955 Age/S: 61/F [address] [facility] Unit #: [id number] Loc: [place] [address] Phys: Gloria Jain MD Acct: [id number] Dis Date: Status: UNK PHONE #: [phone] Exam Date: 05/16/2016 1155 FAX #: [phone] Reason: RESPIRATORY COMPRIMISE EXAMS: CPT CODE: [id number] XR CHEST 1 V 29698 HISTORY: Respiratory compromise. COMPARISON: Previous day. ET tube and NG tube are in good position. No acute infiltrates, effusion or congestion. Dependent changes. Cardiome bernie. IMPRESSION: No acute infiltrates, effusi on or congestion. Dependent changes. at 1212 Reported and signed b y: Nazario Flynn M.D. CC: Gloria Jain MD; Elsie Hallman MD Technologist: Chaparrita KRUSE(Brooke) Trnscrd Date/Time/By: 05/16/2016 (1212) : By: [email or web address] Orig Print D/T: S: 05/16/2016 (1549) PAGE 1 Signed Report - CT HEAD/BRAIN W/O CONT 2016-05-15 16:32:00 Name: FUNMI MONTERROSO [facility] : 1955 Age/S: 61 / F [address] Unit #: [id number] Loc: [place] [address] Phys: Jaydon Collins MD Acct: [id number] Dis Date: Status: UNK PHONE #: [phone] Exam Date: 05/15/2016 1550 FAX #: [phone] Reason: S/P TPA EXAMS: CPT CODE: [id number] CT HEAD/BRAIN W/O CONT 67989 HISTORY: CVA/post TPA. COMPARISON: Head CT from previous day. CT brain without contrast: Automated exposure control.. No acute intracranial bleeds or extra-axial collections are noted. No acute territorial vascular infarction is noted. Scattered bilateral old subcortical infarcts. The sulci, gyri, ventricles and subarachnoid spaces and the basilar cisterns are normal for patient's age. No herniation or hydrocephalus or midline shift is noted. Mild periventricular ischemic gliosis is noted. Age-appropriate atrophy is noted as well. Portions of the visualized paranasal sinuses are normal. No obvious bony calvarial defect is noted. IMPRESSION: No acute intracranial bleeds or extra-axial collections. No acute territorial vascular infarction. Correlate with MRI scan for further evaluation as clinically indicated. No herniation or hydrocephalus or midline shift. Chronic white matter ischemic disease and atrophy . at 1632 Reported and signed by: Nazario Flynn M.D. CC: Jaydon Collins MD; Elsie Hallman MD Technologist:RT Zeenat(R),CT CTDI: DLP: Trnscb Date/Time: 05/15/2016 (163) [email or web address] Orig Print D/T: S: 05/15/2016 (9245) CTDI: DLP: PAGE 1 Signed Report - XR CHEST 1 [id number] 02:39:00 [place]: B St: UNK Name: FUNMI DA SILVA [facility] : [birth year] Age/S: 61/F [address] Unit #: [id number] Loc: [place] [address] Phys: Yuko Lui MD Acct: [id number] Dis Date: Status: UNK PHONE #: [phone] Exam Date: 05/15/2016 0154 FAX #: [phone] Reason: S/P INTUBATION EXAMS: CPT CODE: [id number] XR CHEST 1 V 48548 EXAM: - XR CHEST 1 V HISTORY: Intubated. COMPARISON: 05/14/2016 FINDINGS: Single AP view of the chest is provided. Endotracheal tube is present 2.8 cm above the ted. Nasogastric tube is present in the fundus of the stomach. Heart size and vascularity are within normal limits . Status post median sternotomy and CABG. The lungs are clear of fo amira consolidation. No effusion, pneumothorax, or acute osseous abnormalit y. IMPRESSION: Intubated. Endotracheal tube i s in good position. Nasogastric tube is in the fundus of the stomach. N G tube can be advanced. Status post CABG. No pulmonary infiltra pietro. at 023 9 Reported and signed by: David Kenney MD CC: Technologist: Sara BURGESS, RT(R); Tracey Heredia Trnscrd Date/Time/By: 04/25 (0239) : By: [email or web address] Orig Print D/T: S: 05/15/2016 (0242) PAGE 1 Signed Report - XR CHEST 1 [id number] 00:15:00 [place]: B St: [place] Name: FUNMI DA SILVA [facility] : [birth year] Age/S: 61/F [address] Unit #: [id number] Loc: [place] [address] Phys: Yuko Lui MD Acct: [id number] Dis Date: Status: UNK PHONE #: [phone] Exam Date: 05/14/2016 2350 FAX #: [phone] Reason: R FACIAL DROOP, EXPRESSIVE APHASIA, AMS EXAMS: CPT CODE: [id number] XR CHEST 1 V 80031 REASON FOR EXAM: R FACIAL DROOP, EXPRESSIVE APHASIA, AMS EXAM ORDER DATE: 05/14/2016 11:24 P M Ordering M.D.: Yuko Lui MD PROCEDURE: - XR CHEST 1 V COMPARISON: FINDINGS: Portable AP fr ontal view of the chest obtained at 11:35 PM shows a small calcified granu holly in the right mid lung field. There is no evidence of consolidation. T here is no evidence of effusion. The heart size is minimally enlarged. Pul monary vasculatures are unremarkable. IMPRESSION: Minimal cardiomegaly. at 0015 Reported and signed by: Robbi Kamara M.D. CC: Technologist: RT COLLEEN(R); Tracey Heredia Trnscrd Date/Time/By: 05/15/2016 (0015) : By: KristelL Orig Print D/T: S: 05/15/2016 (0018) PAGE 1 Signed Report - CT HEAD/BRAIN W/O [id number] 23:45:00 Name: FUNMI MONTERROSO [facility] : 1955 Age/S: 61 / F [address] Unit #: [id number] Loc: [place] [address] Phys: Carolina Lui MD Acct: [id number] Di s Date: Status: UNK PHONE #: [phone] Exam Date: 05/14/2016 2341 FAX #: Reason: R FACIAL DROOP, EXPRESSIVE APHASIA EXAMS: CPT CODE: [id number] CT HEAD/BRAIN W/O CONT [id number] REASON FOR EXAM: R FACIAL DROOP, EXPRESSIVE APHASIA EXAM ORDER DATE: 05/14/2016 11:21 PM Ordering Jimenez: Yuko Lui MD PROCEDURE: - CT HEAD/BRAIN W/O CONT COMPARISON: FINDINGS: CT images of the brain were obtained without IV contrast. Dose reduction te chniques were applied. Mild patchy low densities appearance of the paraventricular region noted consistent with nonspecific white matter dis ease. The hernandes-white matter delineation is unremarkable. The ventricles, cisterns, and sulci are unremarkable. There is no evidence of hemorr leonor, mass, mass effect. There is no evidence of acute or infarct. The amira varium is intact. IMPRESSION: Nonspecific deep white matter dise ase. Chronic right caudate nucleus head infarct. No acute findings. at 8614 Reported and signed by: Robbi Kamara M.D. CC: Technologist:Nas foster, RT(R)(CT) CTDI: DLP: Trnscb Date/Time: 05/14/2016 (2193 ) t.SDR.VTL Orig Print D/T: S: 05/14/2016 (2162) CT DI: DLP: PAGE 1 Signed Report - MRI BRAIN W WO [id number] 10:51:00 FAX: Eliezer Garcia MD [phone] [place]: St: [facility] FAX: Elsie Galan MD [phone] Name: FUNMI MONTERROSO [facility] : 1955 Age/S: 47/F [address] Unit #: [id number] Loc: [facility] [place] [address] Phys: Eliezer Loyola MD Acct: [id number] Dis Date: Status: UNK PHONE #: [phone] Exam Date: 02/28/2002 2141 FAX #: [phone] Reason: RY AND COMPLETE MRI Q UESTIONNAIRE? EXAMS: CPT CODE: [id number] MRI BRAIN W WO CONT 77140 DICTATED: 03/01/02, 1051 HISTORY: CHF. MRI BRAIN WITH AND WITHOUT CONTRAST, 02/28/02: CPT 23645 TECHNIQU E: Diffusion axial, sagittal and coronals followed by FLAIR axials follow ed by gadolinium enhanced T1-weighted axials, sagittals and coronals follo wed by T2 fast spin echo axials with T1 nonenhanced axials and T1 nonenhan prosper sagittals. FINDINGS: There is no abnormal signal on the diff usion-weighted studies. The FLAIR studies show no evidence of significant gliosis through the cerebral hemispheres. The ventricular size is normal without midline shift. No subdural or epidural collection of fluid identified. Signal through the cerebellum is normal. There is no eviden ce of enhancing lesion through the axials, sagittals and coronals. No juventino dence of an AVM or aneurysm identified. A small prominence of CSF in the right high parietal cortex possibly representing a small arachnoid cyst. It measures approximately 1 cm in size, asymmetric from the opposite left side. The upper cervical cord, pepito and medulla are normal as wel l as the mid brain. The pituitary gland is normal. No enhancing lesions are identified. There is no evidence of an Arnold-Chiari malformation. The optic nerves and globes are normal as well as the paranasal sinuses and mastoids. IMPRESSION: QUESTION OF A SMALL ARACHNOID CYST IN THE HIGH RIGHT PARIETAL REGION. NO E VIDENCE OF AN ACUTE EVENT SUCH STROKE AND NO EVIDENCE OF GLIOSIS OR E NHANCING LESION SUCH TUMOR. NO AVM OR ANEURYSM DETECTED. #[id number] at 1557 Reported and signed by: Leonardo Isaac M.D. PAGE 1 Signed Report (CONTINUED) FAX: Eliezer Garcia MD [phone] [place]: St: [facility] FAX: Elsie Galan MD Name: FUNMI MONTERROSO [facility] : 1955 Age/S: 47/F [address] U nit #: [id number] Loc: [place] [address] Phys: Eliezer Looyla MD Acct: [id number] Dis Date: Status: UNK P VENICE #: [phone] Exam Date: 02/28/20022140 FA X #: [phone] Reason: RY AND COMPLETE MRI QUESTIONNAIRE? EXAMS: CPT CODE: [id number] M RI BRAIN W WO CONT 93874 <Continued> CC: Eliezer Loyola MD; Elsie Hallman MD Technologist: JESSY MENJIVAR RT; ... Trnscrd Date/Time/By: 03/01/2002 (1349) : By: Lani.[facility] PAGE 2 Signed Report - NM LATOYAA R/S SINGLE 2002-02-28 14:24:00 FAX: Eliezer Garcia MD [phone] [place]: St: [facility] FAX: Elsie Galan MD [phone] Name: FUNMI MONTERROSO [facility] : 1955 Age/S: 47/F [address] Unit #: [id number] Loc: [place] [address] Phys: Eliezer Loyola MD Acct: [id number] Dis Date: Status: UNK PHONE #: [phone] Exam Date: 02/28/2002 1424 FAX #: [phone] Reason: C EXAMS: CPT CODE: [id number] NM MUGA R/S SINGLE 00546 DICTATED: 03/02/02, 184 HISTORY: RESTING NUCLEAR VENTRICULOGRAM; MUGA 02/28/02: The patient was injected with 21 mCi of technetium 99m pertechnetate labelled red blood cells and gated wall motion images were obtained in the AP, KHMER and straight lateral projections. Demonstrations of gated wall motion images show an area of anteroapical hypokinesis calculated ejection fraction reduced to 24.448 %. IMPRESSION: 1. ABNORMAL RESTING NUCLEAR VENTRICULOGRAM. 2. ANTEROAPICAL HY POKINESIS WITH CALCULATED EJECTION FRACTION OF 25%. LF Electronically Sign ed by Jimenez Joseph on 03/05/2002 at 1004 Reported and signed by: Santa Barlow CC: Eliezer Loyola MD; Elsie Hallman MD Stacey hnologist: RAMY HAGAN, [facility] NUC MED Trnscrd Date/T wilda/By: 03/05/2002 (1000) : By: Lani.LMF PAGE 1 Signed Report - XR CHEST 2 [id number] 11:26:00 FAX: Eliezer Garcia MD [phone] [place]: St: [facility] FAX: Elsie Galan MD [phone] Name: FUNMI MONTERROSO [facility] : 1955 Age/S: 47/F [address] [facility] Unit #: [id number] Loc: [place] [address] Phys: Eliezer Loyola MD Acct: [id number] Dis Date: Status: UNK PHONE #: [phone] Exam Date: 02/28/2002 0815 FAX #: [phone] Reason: ONS: EXAMS: CPT CODE: [id number] XR CHEST 2 V 95480 DICTATED: 02/28/02, 1126 HISTORY: CHF. TWO VIEW CHEST, 02/28/02: CPT 00408 There is minimal thoracic spo ndylosis. The lung lambert are adequately expanded without pulmonary infil trates. The cardiac size is normal without evidence of failure with a car diothoracic ratio of 14/28.5. There is mild osteopenic changes through th e bones. Density over the right chest wall probably relating to garment a rtifacts. No pulmonary infiltrates identified. IMPRESSION : NO ACTIVE CARDIOPULMONARY DETECTED. #[id number] at 1638 Reported and signed by: Leonardo Isaac M.D. CC: Eliezer Loyola MD; Elsie Hallman MD Technologist: AMBER KILPATRICK R.T.(R) Trnscrd Date/Time/By: 02/28/2002 (1216) : By: CjCH[facility] PAGE 1 Signed Report - NM MYOCARD PERF R/S [id number] 13:01:00 FAX: Maria Isabel Artis MD [phone] [place]: St: [facility] FAX: Elsie Galan MD [phone] Name: FUNMI MONTERROSO [facility] : 1955 Age/S: 46/F [address] Unit #: [id number] Loc: [facility] [place] [address] Phys: Elsie Hallman MD Acct: [id number] Dis Date: Status: UNK PHONE #: [phone] Exam Date: 08/02/2001 1301 FAX #: [phone] Reason: TR... EXAMS: CPT CODE: [id number] NM MYOCARD PERF R/S SGL 32994 DICTATED: 08/04/01, 1723 HISTORY: MYOCARDIAL VIABILITY STUDY OR RESTING THALLIUM WITH 24 HOUR REDISTRIBU TION, 08/02/01: The patient was injected with 4 mCi of Thallium 201 and perfusion images were taken by rotational tomography. 2 4 hours later, the patient had redistribution studies obtained. Inspection of images shows a large anteroapical scar which also involves t he anteroseptal region. 24 hours later, there is very slight evide nce of viability in reperfusion at the margins of the scar. IMPRESSION: 1. LARGE ANTEROAPICAL SCAR. 2. LIMITED REDISTRIBUTION AT 24 HOURS. # [id number] at 0857 Reported and signed by: Donna Joseph M.D. CC: Maria Isabel Savage MD; Elsie Hallman MD Technologist: TECH NOT FOUND [facility] Date/Time/By: 08/05/2001 (3948) : By: RamanH PAGE 1 Signed Report - XR CHEST 2 [id number] 08:10:00 FAX: Maria Isabel Artis MD [phone] [place]: St: [facility] FAX: Elsie Galan MD [phone] Name: FUNMI MONTERROSO [facility] : 1955 Age/S: 46/F [address] [facility] Unit #: [id number] Loc: [place] [address] Phys: Elsie Hallman MD Acct: [id number] Dis Date: Status: UNK PHONE #: [phone] Exam Date: 07/27/2001 0841 FAX #: [phone] Reason: ONS: EXAMS: CPT CODE: [id number] XR CHEST 2 V 45606 DICTATED: 07/28/01, 0810 HISTORY: PA AND LATERAL CHEST X-RAY, 07/27/01: FINDINGS: Previous study from 23 June 2000 for comparison. Previously noted borderline cardiomegaly is unchanged. There are no masses, consolidations or effusions. Pulmonary vasculature is normal. Bones and soft tissues are normal. IMPRESSION: UNCHANGED CARDIOMEGALY WITHOUT EVIDENCE OF PULMONARY EDEMA. #[id number] at 1229 Reported and signed by: Froilan Crespo M.D. CC: Maria Isabel Savage MD; Elsie Hallman MD Technologist: TECH NOT FOUND [facility] Date/Time/By: 07/28/2001 (0843) : By: Tye/[facility] PAGE 1 Signed Report - XR CHEST 2 [id number] 13:14:00 FAX: Maria Isabel Artis MD [phone] [place]: O St: [facility] FAX: Elsie Galan MD [phone] Name: FUNMI MONTERROSO [facility] : 1955 Age/S: 46/F [address] Unit #: [id number] Loc: [place] [address] Phys: Maria Isabel Savage MD Acct: [id number] Dis Date: Status: UNK PHONE #: [phone] Exam Date: 06/21/2001 1314 FAX #: [phone] Reason: ILM TODAY?1 EXAMS: CPT CODE: [id number] XR CHEST 2 V 53070 DICTATED: 06/22/01, 0813 HISTORY: CHF CHEST TWO VIEWS, 1355 HOURS, 06/21/01: CPT 76791 The heart is enlarged. The central lung markings are slightly prominent without olegario pulmonary edema or focal pulmonary consolidation. The pleural spaces are clear. The anterior end of the left fifth rib is expanded; this is most likely a normal anatomic variant but warrants clinical correlation and additional imaging if clinically indicated. The typed report of chest x-ray dated 06/23/00 is submitted without the images for comparison. IMPRESSION: CARDIOMEGALY AND PROMINENT CENTRAL LUNG MARKINGS. SEE COMMENTS ABOVE. #[id number] at 1839 Reported and signed by: Jacob Graves M.D. CC: Maria Isabel Savage; Elsie Hallman MD Technologist: DINORA MORALES; LELA OLIVARESRT(R) Trnscrd Date/Time/By: 06/22/2001 (0924) : By: Kierra REID PAGE [address] BRAIN WO [place] [address] Patient Name: FUNMI MONTERROSO MR #: [id number] : 1955 Age/Sex: 62/F Req #: [id number] Adm Physician: Ordered by: LORNA KU MD, MD Report #: [id number] Location: ER Room/Bed: Procedure: [id number] CT/CT BRAIN WO Exam Date: 09/30/17 Exam Time: 1941 REPORT STATUS: Signed History:Headaches Comparison studies:Head CTs on 08/23/2017 and 09/13/2017 Technique: Axial images were obtained from the skull base to the vertex. Coronal and sagittal images reconstructed from the axial data. Intravenous co ntrast: None Findings: Scalp/skull: No abnormalities. Extra-ax ial spaces: No masses. No fluid collections. Brain sulci: Mildly promin ent. Ventricles: Mild compensatory dilatation. No hydrocephalus. Parenchy ma: Ill-defined hypodensities in the supratentorial white matter are small ve ssel ischemic changes. Old punctate lacunar insults are centered in the hea ds of the caudate and in the cerebellar white matter bilaterally. No masses, h emorrhage, acute or chronic cortical vascular insults. Sellar/suprasellar region: No abnormalities. Craniocervical junction: Patent foramen magnum. No Chiari one malformation. Incidental findings: Atherosclerotic calcificat ions in the carotid siphons and intracranial vertebral arteries. Minimal muc osal thickening in the ethmoid sinuses. Mild bilateral proptosis Impressi on: No acute abnormalities. No changes when compared to the previous head CTs Chronic findings: 1. Mild generalized volume loss. 2. Mild supra tentorial white matter small vessel ischemic changes. 3. Old lacunar insults (head CT of the caudate and cerebellar white matter) Signed by: Dr. Maria D Cheng M.D. on 09/30/2017 8:52 PM Dictated By: MARIA D Fletcher MD 51 Tra nscribed By: BRE on 09/30/172051 COPY TO: LORNA KU [facility] (PORTABLE) [place] [address] Patient Name: FUNMI MONTERROSO MR #: [id number] : 1955 Age/Sex: 62/F Req #: [id number] Adm Physician: Ordered by: LORNA KU MD, MD Report #: [id number] Location: ER Room/Bed: Procedure: [id number] DX/CHEST SINGLE (PORTABLE) Exam Date: Exam Time: REPORT STATUS: Signed PROCEDURE: A single AP view of the chest. COMPARISON: 08/23/17 INDICATIONS: SHORTNESS OF BREATH FINDINGS: Lines/tubes: Left upper extremity vascular stent is partially visualized. Lungs: The lungs are well inflated. Central vascular congestion and moderate interstitial edema. Pleura: There is no pneumothorax. Trace bilateral pleural effusions. H eart and mediastinum: Enlarged cardiomediastinal silhouette. Median sternotom y wires and mediastinal surgical clips are again seen. Aorta is mildly calcif ied and tortuous. Bones: No acute bony abnormality. Right upper vic drant surgical clips. IMPRESSION: Central vascular congestion and m oderate interstitial edema. Dictated by: Barbara Cartwright M.D. on 2017 at 18:34 Electronically approved by: Barbara Cartwright M.D. on 10/01/19 18 at 18:34 Dictated By: BARBARA CARTWRIGHT MD Electronically Sign ed By: BARBARA CARTWRIGHT MD on 09/30/171833 Transcribed By: INGRID on 09/30/171833 COPY TO: LORNA KU CT BRAIN WO [place] [address] Patient Name: FUNMI MONTERROSO MR #: [id number] : 1955 Age/Sex: 62/F Req #: [id number] Adm Physician: Ordered by: PAULIE TUTTLE MD Report #: [id number] Location: ER Room/Bed: Procedure: [id number] CT/CT BRAIN WO Exam Date: Exam Time: REPORT STATUS: Signed Examinatio n: CT BRAIN WITHOUT CONTRAST History:Headaches. Comparison studies:Head C T performed August 23, 2017 Technique: Axial images were obtained from t he skull base to the vertex. Coronal and sagittal images reconstructed from th e axial data. Intravenous contrast: None Findings: Scalp: No abnorma lities. Bones: No fractures, blastic or lytic lesions. Brain sulci: Mild volume loss for patient's age. Ventricles: No hydrocephalus. Extra-axial space: No abnormalities. Parenchyma: There are mild confluent areas of low-attenuation within subcortical and periventricular white matter, nonspeci fic, but could represent microvascular ischemic disease. Again demonstrated are chronic lacunar infarcts of the bilateral caudate nuclei and bilateral cer ebellar hemispheres. No masses, hemorrhage, or acute cortical based vascular i nsults. Suprasellar region: No abnormalities. Craniocervical junction: Th e foramen magnum is patent. No Chiari one malformation. Incidental findi ngs: Atherosclerotic calcification of the cavernous and supraclinoid internal carotid and V4 segments of the bilateral vertebral arteries. Impression: 1. No new or acute intracranial abnormality. No change from prior head CT dated August 23, 2017. 2. Unchanged mild chronic microvascular ischemic change and volume loss. 3. Unchanged chronic lacunar infarcts, as above. Signed by: Dr. Galina King M.D. on 09/13/2017 4:52 PM Dictated By: GALINA VO MD 51 Transcribed By: BRE on 09/13/171651 COPY T O: PAULIE TUTTLE MD CHEST SINGLE (PORTABLE) [place] [address] Patient Name: FUNMI MONTERROSO MR #: [id number] : 1955 Age/Sex: 62/F Req #: [id number] Adm Physician: Ordered by: JASMINA CARBAJAL PROM BURN OFF OPERATOR Report #: [id number] Location: ER Room/Bed: Procedure: [id number] DX/CHEST SINGLE (PORTABLE) Exam Date: 08/23/17 Exam Time: 1919 REPORT STAT US: Signed EXAMINATION: CHEST SINGLE (PORTABLE) INDICATION: Blood p ressure. COMPARISON: 01/10/2017. FINDINGS: TUBES and LINES: N one. LUNGS: Lungs are hypoinflated. Mild diffuse coarsening of the pulmona ry interstitium. In the left lung base suggestive of subsegmental atelectasis. There is no evidence of pneumonia or pulmonary edema. PLEURA: Mild blunt ing of the bilateral lateral costophrenic sulcus may represent pleural scarrin g versus trace pleural effusions. No pneumothorax. HEART AND MEDIASTINUM: The cardiomediastinal silhouette is remarkable for postsurgical changes relate d to CABG again observed. BONES AND SOFT TISSUES: No acute osseous lesion. UPPER ABDOMEN: No free air under the diaphragm. There are cholecystectomy clips. IMPRESSION: Left basilar subsegmental atelectasis. Signed b y: Dr. Mary Paniagua M.D. on 08/23/2017 7:48 PM Dictated By: NIKKI PANIAGUA MD, MD 47 Transcribed By: BRE on 08/23/171947 COPY TO: JASMINA CARBAJAL PROM BURN OFF OPERATOR CT BRAIN WO [place] [address] Patient Name: FUNMI MONTERROSO MR #: [id number] : 1955 Age/Sex: 62/F Req #: [id number] Adm Physician: Ordered by: JASMINA CARBAJAL PROM BURN OFF OPERATOR Report #: [id number] Location: ER Room/Bed: Procedure: [id number] CT/CT BRAIN WO Exam Date: 0 08/23/17 Exam Time: 1920 REPORT STATUS: Signed Examination: CT head without contrast Clinical Indication: Headaches; hypert ension. Technique: Transaxial noncontrast images from the skull base through t he vertex were obtained. Sagittal and coronal reformatted images were done. Comparison: Head CT dated 10/11/2016. Findings: Scalp: No new acute abn ormalities. Interval resolution of acute right parietal scalp laceration and h ematoma. Bones: Intact. No fractures. No blastic or lytic lesions. Brai n sulci: Mild volume loss for patient's age. Ventricles: No hydrocephalus. Extra-axial space: No abnormalities. Parenchyma: There are mild conf luent areas of low-attenuation within subcortical and periventricular white ma tter, nonspecific, but could represent microvascular ischemic disease. Again demonstrated is a chronic lacunar infarct of the bilateral caudate nuclei and bilateral cerebellar hemispheres. No masses, hemorrhage, or acute cortical ba sed vascular insults. Suprasellar region: No abnormalities. Craniocervica l junction: The foramen magnum is patent. No Chiari one malformation. In cidental findings: Atherosclerotic calcification of the cavernous and supracl inoid internal carotid and V4 segments of the bilateral vertebral arteries. Impression: 1. No new acute intracranial abnormality. 2. Interv al resolution of acute right parietal scalp laceration and hematoma when cindy red to prior head CT dated 10/11/2016. 3. Unchanged mild chronic microvascu lar ischemic change and volume loss. 4. Unchanged chronic lacunar infarcts , as above. Signed by: Dr. Galina King M.D. on 08/23/2017 7:54 PM Dictated By: GALINA VO MD 53 Transcribed By: BRE on 08/23/171953 COPY TO: JASMINA CARBAJAL NP SMALL BOWEL SERIES [facility] [address] [place] [address] Patient Name: FUNMI MONTERROSO MR #: [id number] : 1955 Age/Sex: 62/F Req #: [id number] Adm Physician: ELSIE HALLMAN MD Ordered by: MALLORY PENA MD Report #: [id number] Location: MED/SURG2 Room/Bed: [facility] Procedure: [id number] DX /SMALL BOWEL SERIES Exam Date: 04/01/17 Exam Time: 0 910 REPORT STATUS: Signed PROCEDURE: SMALL BOWEL SERIES OPERATO RS: Dana Barrera M.D. Fluoroscopy time: 0.2 minutes Comparison: None. Indications: FOOD GOING THROUGH BOWEL QUICKLY, ANEMIA Technique: Small bowel follow through exam was performed using oral barium. Preliminary image was obtained before administration of contrast and serial overhead i mages were obtained after administration of oral barium. Fluoroscopy was per formed and spot images were obtained. Findings: Security Shift Manager: The bowel gas pattern shows no dilated, air-filled loops of bowel. Amorphous calc ifications project over the iliac wings likely reflective of soft tissue calc ified injection granulomata. Atherosclerotic vascular calcifications in the a ortoiliac distribution. Surgical clips project over the right upper quadrant of the abdomen in the left inguinal region. Regional skeletal structures are grossly intact. SMALL BOWEL FOLLOW THROUGH: Small bowel loops are nor mal in caliber and distribution. Spot compression views of the terminal ile um are normal. The transit time was decreased. IMPRESSION: Nonspecific decreased intestinal transit time. Otherwise unremarkable fluo roscopic appearance of the small bowel. Dictated by: Dana Barrera M.D. on 04/01/2017 at 9:44 Electronically approved by: Dana Barrera M.D. on 02/2017 at 9:44 Dictated By: DANA BARRERA MD Electronically Sig mayuri By: DANA BARRERA MD on 04/01/17 0944 Transcribed By: INGRID on 04/01/17 094 4 COPY TO: MALLORY PENA MD VENOUS DUPLEX UPPER U/L [place] [address] [place] [address] Patient Name : FUNMI MONTERROSO MR #: [id number] : 1955 Age/Sex: 62/F Adm Phys ician : ELSIE HALLMAN MD Admit Date : 03/29/17 Location : MED/SURG 2 Room/Bed : [facility] REPORT: Cardiology Report DATE OF STUDY: March 29, 2017 DOPPLER SCAN OF LEFT ARM VEINS The left arm veins were interrogated using the duplex scanning method. The right arm was not studied. The study is poor quality, suboptimally inter rogated, suboptimally presented. Several areas were not well visualized incl uding the proximal and mid left brachial veins. Dialysis graft is present. No high velocities were noted. CONCLUSIONS 1. Suboptimal study, techni lia difficult, with several areas not well visualized. 2. Dialysis graft did not show any high-grade velocities. 3. Cannot exclude deep venous thrombos is although in the areas well visualized no definite deep venous thrombosis c an be determined. 4. The right arm was not studied. RECOMMENDATION: If c linically indicated, consider venography or arteriography. Job#: [id number] cc: JHONNY STANFORD MD Signature Date Dictated By: MARIA ISABEL SAVAGE MD Tr anscribed By: SMEDS on 03/30/17 <Electronically signed by MARIA ISABEL SAVAGE MD><< Signature on File>>04/06/17 1017 COPY TO: CHEST SINGLE (PORTABLE) [place] [address] Patient Name: FUNMI MONTERROSO MR #: [id number] : 1955 Age/Sex: 62/F Req #: [id number] Adm Physician: Ordered by: JHONNY VERA MD Report #: [id number] Location: ER Room/Bed: Procedure: [id number] DX/CHEST SINGLE (PORTABLE) Ex am Date: 03/29/17 Exam Time: 0840 REPORT STATUS : Signed PROCEDURE: CHEST SINGLE (PORTABLE) COMPARISON: Patients Medical Ce nter, DX, CHEST SINGLE (NOT PORTABLE), 02/25/2017, 17:48. INDICATIONS: WEAKN ESS SHORTNESS OF BREATH FINDINGS: LUNGS: Moderate pulmonary edema. PLEURA: Small bilateral pleural effusions. HEART T MEDIASTI NUM: The heart is enlarged compared to prior study. Sternotomy wire sutures, multiple right upper quadrant clips and a left IJ tunneled hemodialysis mike ter are unchanged. BONES T SOFT TISSUES: No acute findings. CONCLUSION: Moderate pulmonary edema with bilateral pleural effusions. Alcides Hawkins D.O. Dictated by: Alcides Hawkins D.O. on 03/29/2017 at 9:18 Electronically approved by: Alcides Hawkins D.O. on 03/29/2017 at 9 :18 Dictated By: ALCIDES HAWKINS DO 7 Transcribed By: INGRID on 03/29/17917 COPY TO: JHONNY VERA MD
--- NOTE | 2018-08-25 17:19 | Diagnostic Imaging Report ---
EXAM: XR CHEST 1 VIEW DATE: 08/25/2018 4:28 PM INDICATION: Seizure COMPARISON: 09/30/2017, no report available FINDINGS: Lines and Tubes: Sternotomy wires, left IJ dialysis catheter tip distal SVC, vascular stents right suprahilar region, left axilla, left arm. Heart and Mediastinum: No acute cardiomediastinal findings. Lungs and Pleura: Chin of secures the apices. Small left effusion with superimposed atelectasis and/or pneumonia. Bones and Soft Tissues: Surgical clips right upper quadrant. IMPRESSION: 1. Small left effusion with superimposed atelectasis and/or pneumonia. Component of edema suspected. Signed by: Dr. Fredrick Payne MD on 08/25/2018 5:15 PM
[2018-08-25 17:37] LABS: INR 0.91; PROTHROMBIN TIME 13.1 seconds (11.9-14.5)
[2018-08-25 17:38] LABS: PARTIAL THROMBOPLASTIN TIME 32.2 seconds (23.8-35.5)
[2018-08-25 17:43] LABS: ALBUMIN 2.9 g/dL (3.5-5.0); ALBUMIN/GLOBULIN RATIO 0.8 (0.8-2.0); ALKALINE PHOSPHATASE 99 IU/L (40-150); ANION GAP 18.8 mmol/L (8-16); BLOOD UREA NITROGEN 31 mg/dL (7-26); BUN/CREATININE RATIO 5 (6-25); CALCIUM 8.7 mg/dL (8.4-10.2); CARBON DIOXIDE 20 mmol/L (22-29); CHLORIDE 99 mmol/L (98-107); CREATINE KINASE 48 IU/L (29-168); CREATININE, SERUM 6.05 mg/dL (0.57-1.11); EST GLOMERULAR FILTRATION RATE 7 ML/MIN (60-); GLUCOSE 98 mg/dL (74-118); POTASSIUM 4.8 mmol/L (3.5-5.1); SODIUM 133 mmol/L (136-145)
[2018-08-25 17:44] LABS: ALANINE AMINOTRANSFERASE < 6 IU/L (0-55)
[2018-08-25 17:53] LABS: BASOPHILS % 0.8 % (0.0-1.0); EOSINOPHILS # (AUTO) 0.1 (0.0-0.4); EOSINOPHILS % 1.2 % (0.0-6.0); HEMATOCRIT 40.9 % (34.2-44.1); HEMOGLOBIN 13.4 g/dL (12.0-16.0); LYMPHOCYTES # (AUTO) 1.8 (1.0-3.2); LYMPHOCYTES % 36.8 % (18.0-39.1); MEAN CORPUSCULAR HEMOGLOBIN 29.9 pg (28-32); MEAN CORPUSCULAR HGB CONC 32.8 g/dL (31-35); MEAN CORPUSCULAR VOLUME 91.3 fL (81-99); MONOCYTES # (AUTO) 0.3 (0.2-0.8); MONOCYTES % 6.3 % (4.4-11.3); NEUTROPHILS # (AUTO) 2.7 (2.1-6.9); NEUTROPHILS % 53.9 % (38.7-80.0); PLATELET COUNT 148 x10e3/uL (140-360); RED BLOOD COUNT 4.48 x10e6/uL (3.6-5.1); RED CELL DISTRIBUTION WIDTH 16.6 % (11.7-14.4)
--- NOTE | 2018-08-25 18:42 | NUR ---
no med list available at this time; patient states family will bring later
--- OUTSIDE RECORDS SUMMARY | 2018-08-25 19:25 | XMS REPORT | Clinical Summary ---
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 L ast Assessment & Plan: Relevant Hx: [...] heart transplant (HCC); DILIP (acute kidney injury) ([facility]); Altered mental status, unspecified altered mental status type; Anemia of renal disease; Benign hypertension with chronic kidney disease, stage IV (HCC); Chronic kidney disease, unspecified CKD stage; Controlled type 2 diabetes mellitus with complication, without long-term current use of insulin (HCC); ESRD (end stage renal disease) ([facility]); H/O stroke without residual deficits; Hemodialysis access, AV graft ([facility]); Hepatitis C antibody test positive; Hyperlipidemia, unspecified [...] 10/26/2018 Appointment Cardiology Kristine Brown MD [address], [place] [id number] 10/26/2018 Follow-Up Transplant Health Maintenance Due Date Last Done Comments INFLUENZA VACCINE 04/24/2018 06/30/2016 Implants Device Identifier Shelf Expiration Date Model / Serial / Lot Implanted Type Area Manufactur er 09/06/2019 [id number] / [id number] / N/A Grft Vasc Acuseal [id number] Graft/Patc WL GORLia & [id number] - [id number] ASSC:MED Implanted: Qty: 1 on 01/18/2017 by Ailyn Ulloa MD 08/31/2020 [id number] / [id number] / Iol Tecnis [id number] 22.0 [employer] Right: Lens ADV MED [id number] - [id number] [id number] OPTICS Implanted: Qty: 1 on 10/26/2016 by Carlie Bonilla MD 08/02/2020 [id number] / [id number] / Iol Tecnis Zcb00 21.5 [employer] Left: Eye ADV MED [id number] - [id number] [id number] OPTICS Implanted: Qty: 1 on 11/30/2016 by Carlie Bonilla MD Procedures Comments Procedure Name Priority Date/Time Associated Diagnosis RHYTHM STRIP - SCAN 12/22/2017 3:22 PM CDT CBC W/PLT COUNT & AUTO Routine 12/22/2017 Status post heart DIFFERENTIAL 9:52 AM CDT transplantation ([facility]) Transplant follow-up TACROLIMUS LEVEL Routine 12/22/2017 Status post heart 9:52 AM CDT transplantation ([facility]) Transplant follow-up BASIC METABOLIC PANEL (7) STAT 12/22/2017 Status post heart 9:52 AM CDT transplantation ([facility]) Transplant follow-up CBC W/PLT COUNT & AUTO Routine 12/22/2017 Status post heart DIFFERENTIAL 9:52 AM CDT transplantation ([facility]) Transplant follow-up CBC W/PLT COUNT & AUTO Routine 10/25/2017 Status post heart DIFFERENTIAL 11:00 AM CDT transplantation ([facility]) Transplant follow-up TACROLIMUS LEVEL Routine 10/25/2017 Status post heart 11:00 AM CDT transplantation ([facility]) Transplant follow-up BASIC METABOLIC PANEL (7) STAT 10/25/2017 Status post heart 11:00 AM CDT transplantation ([facility]) Transplant follow-up CBC W/PLT COUNT & AUTO Routine 10/25/2017 Status post heart DIFFERENTIAL 11:00 AM CDT transplantation ([facility]) Transplant follow-up RHYTHM STRIP - SCAN 10/13/2017 1:30 PM CDT HLA TYPING CII Routine 10/12/2017 ESRD (end stage renal 1:26 PM CDT disease) ([facility]) Pre-transplant evaluation for end stage renal disease Breast cancer screening Abnormal blood chemistry FLOW PRA CLASS II WITH Routine 10/12/2017 ESRD (end stage renal REFLEX TO ANTIBODY 1:26 PM CDT disease) ([facility]) SPECIFICITY Pre-transplant evaluation for end stage renal disease Breast cancer screening Abnormal blood chemistry FLOW PRA CLASS I WITH Routine 10/12/2017 ESRD (end stage renal REFLEX TO ANTIBODY 1:26 PM CDT disease) ([facility]) SPECIFICITY Pre-transplant evaluation for end stage renal [...] ms QTC Calculatio n(Bazett) 545 ms P [place] 34 degrees R [place] 141 degrees T [place] 53 degrees Sinus tachycardi a Right axis [...] ms QTC Calculatio n(Bazett) 464 ms P [place] 55 degrees R [place] 141 degrees T [place] 50 degrees Sinus tachycardi a Right axis [...] CDT POCT-GLUCOSE METER Routine 10/02/2017 12:16 AM HOLIDAY DETECTOR OPERATOR POCT-GLUCOSE METER Routine 10/01/2017 6:24 PM HOLIDAY DETECTOR OPERATOR ECHOCARDIOGRAM REPORT - 10/01/2017 SCAN 6:20 PM HOLIDAY DETECTOR OPERATOR BLOOD GAS, ARTERIAL STAT 10/01/2017 4:07 PM HOLIDAY DETECTOR OPERATOR CMV PCR, QUANTITATIVE STAT 10/01/2017 2:33 PM HOLIDAY DETECTOR OPERATOR 2D ECHO W/ DOPPLER STAT 10/01/2017 (CW/PW/COLOR) 1:18 PM HOLIDAY DETECTOR OPERATOR POCT-GLUCOSE METER Routine 10/01/2017 1:07 PM HOLIDAY DETECTOR OPERATOR MISCELLANEOUS LAB ORDER Routine 10/01/2017 12:38 PM HOLIDAY DETECTOR OPERATOR CT ABDOMEN/PELVIS WITH IV STAT 10/01/2017 CONTRAST 11:05 AM HOLIDAY DETECTOR OPERATOR CT CHEST WITH IV CONTRAST STAT 10/01/2017 11:05 AM HOLIDAY DETECTOR OPERATOR XR CHEST 1 VIEW STAT 10/01/2017 PORTABLE/BEDSIDE 9:56 AM HOLIDAY DETECTOR OPERATOR BRONCHIAL CULTURE + GRAM Routine 10/01/2017 STAIN 9:40 AM HOLIDAY DETECTOR OPERATOR FUNGUS CULTURE + SMEAR [place] 10/01/2017 9:40 AM HOLIDAY DETECTOR OPERATOR PLATELET COUNT STAT 10/01/2017 8:20 AM HOLIDAY DETECTOR OPERATOR FIBRINOGEN STAT 10/01/2017 8:20 AM HOLIDAY DETECTOR OPERATOR APTT STAT 10/01/2017 8:20 AM HOLIDAY DETECTOR OPERATOR PROTHROMBIN TIME/INR STAT 10/01/2017 8:20 AM HOLIDAY DETECTOR OPERATOR POCT-GLUCOSE METER Routine 10/01/2017 7:51 AM HOLIDAY DETECTOR OPERATOR RESPIRATORY PANEL [facility] Add-On 10/01/2017 7:05 AM HOLIDAY DETECTOR OPERATOR TACROLIMUS LEVEL STAT 10/01/2017 6:47 AM HOLIDAY DETECTOR OPERATOR LACTIC ACID, ARTERIAL, STAT 10/01/2017 WHOLE BLOOD 6:47 AM HOLIDAY DETECTOR OPERATOR XR CHEST 1 VIEW STAT 10/01/2017 PORTABLE/BEDSIDE 6:46 AM HOLIDAY DETECTOR OPERATOR XR ABDOMEN 1 VIEW STAT 10/01/2017 6:07 AM HOLIDAY DETECTOR OPERATOR TACROLIMUS LEVEL Routine 10/01/2017 5:01 AM HOLIDAY DETECTOR OPERATOR HEMODIALYSIS INPATIENT Routine 10/01/2017 4:28 AM HOLIDAY DETECTOR OPERATOR BLOOD CULTURE Routine 10/01/2017 4:14 AM HOLIDAY DETECTOR OPERATOR CBC W/PLT COUNT & AUTO Routine 10/01/2017 DIFFERENTIAL 4:07 AM HOLIDAY DETECTOR OPERATOR CBC W/PLT COUNT & AUTO Routine 10/01/2017 DIFFERENTIAL 4:07 AM HOLIDAY DETECTOR OPERATOR MAGNESIUM Routine 10/01/2017 4:07 AM HOLIDAY DETECTOR OPERATOR PROTHROMBIN TIME/INR Routine 10/01/2017 4:07 AM HOLIDAY DETECTOR OPERATOR HEPATIC FUNCTION PANEL Routine 10/01/2017 4:07 AM HOLIDAY DETECTOR OPERATOR CALCIUM, IONIZED Routine 10/01/2017 4:07 AM HOLIDAY DETECTOR OPERATOR BASIC METABOLIC PANEL (7) Routine 10/01/2017 4:07 AM HOLIDAY DETECTOR OPERATOR HEPATITIS B SURFACE Routine 10/01/2017 ANTIGEN 12:35 AM HOLIDAY DETECTOR OPERATOR MAGNESIUM Routine 10/01/2017 12:35 AM HOLIDAY DETECTOR OPERATOR BASIC METABOLIC PANEL (7) Routine 10/01/2017 12:35 AM HOLIDAY DETECTOR OPERATOR BLOOD CULTURE Routine 10/01/2017 12:29 AM HOLIDAY DETECTOR OPERATOR XR CHEST 1 VIEW Routine 10/01/2017 PORTABLE/BEDSIDE 12:00 AM HOLIDAY DETECTOR OPERATOR URINALYSIS W/ MICROSCOPIC Routine 09/30/2017 11:41 PM HOLIDAY DETECTOR OPERATOR URINE CULTURE Routine 09/30/2017 11:41 PM HOLIDAY DETECTOR OPERATOR HGB/HCT (H&H) - STAT LAB STAT 09/30/2017 11:35 PM HOLIDAY DETECTOR OPERATOR GLUCOSE-STAT LAB STAT 09/30/2017 11:35 PM HOLIDAY DETECTOR OPERATOR POTASSIUM-STAT LAB STAT 09/30/2017 11:35 PM HOLIDAY DETECTOR OPERATOR SODIUM NA-STAT LAB STAT 09/30/2017 11:35 PM HOLIDAY DETECTOR OPERATOR BLOOD GAS, ARTERIAL STAT 09/30/2017 11:35 PM HOLIDAY DETECTOR OPERATOR RRL CRITICAL LABS STAT 09/30/2017 (ABG,NA,K,H&H,GLUCOSE) 11:35 PM HOLIDAY DETECTOR OPERATOR CBC W/PLT COUNT & AUTO Routine 09/30/2017 DIFFERENTIAL 11:33 PM HOLIDAY DETECTOR OPERATOR CBC W/PLT COUNT & AUTO Routine 09/30/2017 DIFFERENTIAL 11:33 PM HOLIDAY DETECTOR OPERATOR PROTHROMBIN TIME/INR Routine 09/30/2017 11:33 PM HOLIDAY DETECTOR OPERATOR CALCIUM, IONIZED Routine 09/30/2017 11:33 PM HOLIDAY DETECTOR OPERATOR BLOOD GAS, VENOUS STAT 09/30/2017 11:33 PM HOLIDAY DETECTOR OPERATOR ECG 12-LEAD Routine 09/30/2017 11:14 PM HOLIDAY DETECTOR OPERATOR POCT-GLUCOSE METER Routine 09/30/2017 11:12 PM HOLIDAY DETECTOR OPERATOR CBC W/PLT COUNT & AUTO Routine 08/24/2017 Hepatitis C antibody test DIFFERENTIAL 12:44 PM HOLIDAY DETECTOR OPERATOR positive Chronic kidney disease, stage IV (severe) (HCC) Uncontrolled type 2 diabetes mellitus with complication, with long-term current use of insulin (HCC) Benign hypertension with chronic kidney disease, stage IV (HCC) DILIP (acute kidney injury) (HCC) Screening for endocrine/metabolic/immun ity disorders ESRD (end stage renal disease) (HCC) TSH Routine 08/24/2017 Hepatitis C antibody test 12:44 PM HOLIDAY DETECTOR OPERATOR positive Chronic kidney disease, stage IV (severe) (HCC) Uncontrolled type 2 diabetes mellitus with complication, with long-term current use of insulin (HCC) Benign hypertension with chronic kidney disease, stage IV (HCC) DILIP (acute kidney injury) (HCC) Screening for endocrine/metabolic/immun ity disorders ESRD (end stage renal disease) (HCC) HEPATITIS C GENOTYPE Routine 08/24/2017 Hepatitis C antibody test 12:44 PM HOLIDAY DETECTOR OPERATOR positive Chronic kidney disease, stage IV (severe) (HCC) Uncontrolled type 2 diabetes mellitus with complication, with long-term current use of insulin (HCC) Benign hypertension with chronic kidney disease, stage IV (HCC) DILIP (acute kidney injury) (HCC) Screening for endocrine/metabolic/immun ity disorders ESRD (end stage renal disease) (HCC) GAMMA GLUTAMYL Routine 08/24/2017 Hepatitis C antibody test TRANSFERASE (GGT) 12:44 PM HOLIDAY DETECTOR OPERATOR positive Chronic kidney disease, stage IV (severe) (HCC) Uncontrolled type 2 diabetes mellitus with complication, with long-term current use of insulin (HCC) Benign hypertension with chronic kidney disease, stage IV (HCC) DILIP (acute kidney injury) (HCC) Screening for endocrine/metabolic/immun ity disorders ESRD (end stage renal disease) (HCC) HEPATITIS A ANTIBODY, IGG Routine 08/24/2017 Hepatitis C antibody test 12:44 PM HOLIDAY DETECTOR OPERATOR positive Chronic kidney disease, stage IV (severe) (HCC) Uncontrolled type 2 diabetes mellitus with complication, with long-term current use of insulin (HCC) Benign hypertension with chronic kidney disease, stage IV (HCC) DILIP (acute kidney injury) (HCC) Screening for endocrine/metabolic/immun ity disorders ESRD (end stage renal disease) (HCC) HEPATITIS C PCR, Routine 08/24/2017 Hepatitis C antibody test QUANTITATIVE 12:44 PM HOLIDAY DETECTOR OPERATOR positive Chronic kidney disease, stage IV (severe) (HCC) Uncontrolled type 2 diabetes mellitus with complication, with long-term current use of insulin (HCC) Benign hypertension with chronic kidney disease, stage IV (HCC) DILIP (acute kidney injury) (HCC) Screening for endocrine/metabolic/immun ity disorders ESRD (end stage renal disease) (HCC) ALPHA FETOPROTEIN (AFP), Routine 08/24/2017 Hepatitis C antibody test TUMOR MARKER 12:44 PM HOLIDAY DETECTOR OPERATOR positive Chronic kidney disease, stage IV (severe) (HCC) Uncontrolled type 2 diabetes mellitus with complication, with long-term current use of insulin (HCC) Benign hypertension with chronic kidney disease, stage IV (HCC) DILIP (acute kidney injury) (HCC) Screening for endocrine/metabolic/immun ity disorders ESRD (end stage renal disease) (HCC) PROTHROMBIN TIME/INR Routine 08/24/2017 Hepatitis C antibody test 12:44 PM HOLIDAY DETECTOR OPERATOR positive Chronic kidney disease, stage IV (severe) (HCC) Uncontrolled type 2 diabetes mellitus with complication, with long-term current use of insulin (HCC) Benign hypertension with chronic kidney disease, stage IV (HCC) DILIP (acute kidney injury) (HCC) Screening for endocrine/metabolic/immun ity disorders ESRD (end stage renal disease) (HCC) CBC W/PLT COUNT & AUTO Routine 08/24/2017 Hepatitis C antibody test DIFFERENTIAL 12:44 PM HOLIDAY DETECTOR OPERATOR positive Chronic kidney disease, stage IV (severe) (HCC) Uncontrolled type 2 diabetes mellitus with complication, with long-term current use of insulin (HCC) Benign hypertension with chronic kidney disease, stage IV (HCC) DILIP (acute kidney injury) (HCC) Screening for endocrine/metabolic/immun ity disorders ESRD (end stage renal disease) (HCC) HEPATIC FUNCTION PANEL Routine 08/24/2017 Hepatitis C antibody test 12:44 PM HOLIDAY DETECTOR OPERATOR positive Chronic kidney disease, stage IV (severe) (HCC) Uncontrolled type 2 diabetes mellitus with complication, with long-term current use of insulin (HCC) Benign hypertension with chronic kidney disease, stage IV (HCC) DILIP (acute kidney injury) (HCC) Screening for endocrine/metabolic/immun ity disorders ESRD (end stage renal disease) (HCC) BASIC METABOLIC PANEL (7) Routine 08/24/2017 Hepatitis C antibody test 12:44 PM HOLIDAY DETECTOR OPERATOR positive Chronic kidney disease, stage IV (severe) [...] included. WBC 6.0 3.5 - 10.5 K/L [facility] RBC 4.19 3.93 - 5.22 M/L [facility] Hemoglobin 13.8 11.2 - 15.7 GM/DL [facility] Hematocrit 43.7 34.1 - 44.9 % [facility] MCV 104.3 (H) 79.4 - 94.8 fL [facility] MCH 32.9 (H) 25.6 - 32.2 pg [facility] MCHC 31.6 (L) 32.2 - 35.5 GM/DL [facility] RDW 14.4 11.7 - 14.4 % [facility] Platelets 239 150 - 450 K/CU MM [facility] MPV 8.8 (L) 9.4 - 12.3 fL [facility] nRBC 0 0 - 0 /100 WBC [facility] % Neutros 60 % [facility] % Lymphs 30 % [facility] % Monos 8 % [facility] % Eos 1 % [facility] % Baso 1 % [facility] # Neutros 3.60 1.56 - 6.13 K/L [facility] # Lymphs 1.81 1.18 - 3.74 K/L [facility] # Monos 0.49 (H) 0.24 - 0.36 K/L [facility] # Eos 0.05 0.04 - 0.36 K/L [facility] # Baso 0.04 0.01 - 0.08 K/L [facility] Immature 0 0 - 1 % [facility] Granulocytes-[facility] Specimen Blood Performing Organization Address City/State/Zipcode Phone Number [facility] [address] [place] [address] MEDICAL CENTER * Tacrolimus level (12/22/2017 9:52 AM CDT) Only the most recent of 15 results within the time period is included. Tacrolimus Lvl 10.3 10.0 - 20.0 ng/mL [facility] Specimen Blood Performing Organization Address City/[facility]/Zipcode Phone Number [facility] [address] [place] [address] [facility] * Basic Metabolic Panel (12/22/2017 9:52 AM CDT) Only the most recent of 17 results within the time period is included. Sodium 136 136 - 145 meq/L [facility] Potassium 5.3 (H) 3.5 - 5.1 meq/L [facility] Chloride 94 (L) 98 - 107 meq/L [facility] CO2 28 22 - 29 meq/L [facility] BUN 71 (H) 7 - 21 mg/dL [facility] Creatinine 5.66 (H) 0.57 - 1.25 mg/dL [facility] Glucose 300 (H) 70 - 105 mg/dL [facility] Calcium 9.0 8.4 - 10.2 mg/dL [facility] EGFR 8Comment: ESTIMATED GFR IS NOT mL/min/1.73 sq m [facility] ACCURATE CREATININE [facility] CLEARANCE IN PREDICTING GLOMERULAR FILTRATION RATE. ESTIMATED GFR IS NOT APPLICABLE FOR DIALYSIS PATIENTS. Specimen Blood Performing Organization Address City/[facility]/Zipcode Phone Number [facility] [address] [place] [address] [facility] * HLA TYPING CII (10/12/2017 1:26 PM CDT) HLA-DR AG1 7 [facility] HLA-DR AG2 8 [facility] HLA-DR AG3-1 [facility] HLA-DR AG3-2 [facility] HLA-DR AG4-1 53 [facility] HLA-DR AG4-2 [facility] HLA-DR AG5-1 [facility] HLA-DR AG5-2 [facility] HLA-DQA1 AG 1-1 02 [facility] HLA-DQA1 AG 1-2 04 [facility] HLA-DQB1 AG 1-1 2 [facility] HLA-DQB1 AG 1-2 4 [facility] HLA-DPA1 AG 1-1 01 [facility] HLA-DPA1 AG 1-2 01 [facility] HLA-DPB1 AG 1-1 03:01/104: [facility] HLA-DPB1 AG 1-2 04:01 [facility] HLA-AG Notes [facility] HLA-AG Report Comments [facility] Specimen Blood - Arm, Right Performing Organization Address City/[facility] Phone Number [facility] ONE [facility] [address]ya, MS: [id number], [place] [address] CLIA#[id number] CAP#[id number] UNOS#[id number] [facility] ONE [facility] [address]ya, MS: [id number] [place] [address] * HLA TYPING CI (10/12/2017 1:26 PM CDT) HLA-A AG1 3 [facility] HLA-A AG2 29 [facility] HLA-B AG1 60 [facility] HLA-B AG2 45 [facility] HLA-C AG1 10 [facility] HLA-C AG2 6 [facility] HLA-B BW1 6 [facility] HLA-B BW2 6 [facility] HLA-AG Notes [facility] HLA-AG Report Comments [facility] Specimen Blood - Arm, Right Performing Organization Address [facility] Phone Number [facility] ONE [facility] [address]ya, MS: [id number], [place] [address] CLIA#[id number] CAP#[id number] UNOS#[id number] [facility] TEST[facility] ONE [facility] [address], MS: [id number] [place] [address] * FLOW PRA CLASS II WITH REFLEX TO ANTIBODY SPECIFICITY (10/12/2017 1:26 PM CDT) Flow Class II Percent 0 [facility] Positive Flow Class Report [facility] Comments Specimen Blood - Arm, Right Performing Organization Address [facility] Phone Number [facility] ONE [facility] [address]ya, MS: [id number], [place] [address] CLIA#[id number] CAP#[id number] UNOS#[id number] [facility] TEST[facility] ONE [facility] [address]ya, MS: [id number] [place] [address] * FLOW PRA CLASS I WITH REFLEX TO ANTIBODY SPECIFICITY (10/12/2017 1:26 PM CDT) Flow Class I Percent 0 [facility] Positive Flow Class Report [facility] Comments Specimen Blood - Arm, Right Performing Organization Address City/State/Zipcode Phone Number [facility] TEST[facility] ONE [facility] [address], [address]: [id number], [place] [address] CLIA#[id number] CAP#[id number] UNOS#[id number] [facility] TEST[facility] ONE [facility] [address], MS: [id number] [place] [address] * POC-Glucose meter (10/12/2017 12:11 PM CDT) Only the most recent of 41 results within the time period is included. POC-Glucose Meter 128 (H)Comment: TESTED AT 70 - 110 mg/dL [facility] [address] [place] [id number] Specimen Blood Performing Organization Address City/State/Zipcode Phone Number [address] [phone] [place] [address] * XR chest 1 view portable / [...] MD Report Verified Date/Time:10/12/2017 08:21:18 Reading Location: [facility] Radiology Reading Room Procedure Note Interface, External [...] [facility] Radiology Reading Room Performing Organization Address City/[facility] Phone Number GE [facility] * PT/aPTT (10/12/2017 6:02 AM CDT) Only the most recent of 11 results within the time period is included. Protime 13.6 11.7 - 14.7 seconds [facility] INR 1.0 <=5.9 [facility] PTT 31.2 22.5 - 36.0 seconds [facility] Specimen Blood - Arm, Right Narrative Performed At RECOMMENDED COUMADIN/WARFARIN INR THERAPY RANGES [facility] STANDARD DOSE: 2.0 - 3.0 Includes: PROPHYLAXIS for venous thrombosis, [facility] systemic embolization; TREATMENT for venous thrombosis and/or pulmonary embolus. HIGH RISK: Target INR is 2.5-3.5 for patients with mechanical heart valves. Performing Organization Address [facility] Phone Number [address] * Phosphorus (10/12/2017 6:02 AM CDT) Only the most recent of 11 results within the time period is included. Phosphorus 3.6 2.3 - 4.7 mg/dL [facility] Specimen Blood - Arm, Right Performing Organization Address [facility] Phone Number [facility] [address] [place] [address] [facility] * Magnesium (10/12/2017 6:02 AM CDT) Only the most recent of 14 results within the time period is included. Magnesium 1.8 1.6 - 2.6 mg/dL [facility] Specimen Blood - Arm, Right Performing Organization Address City/[facility] Phone Number [facility] [address] [place], [place] [phone] [facility] * Manual Differential (10/11/2017 5:14 AM CDT) Only the most recent of 3 results within the time period is included. Total Counted [facility] WBC Morphology Normal [facility] Platelet Morphology Normal [facility] RBC Morphology Normal [facility] Specimen Blood - Arm, Left Performing Organization Address City/[facility] Phone Number [address] [address] [facility] * Prothrombin time/INR (10/11/2017 5:14 AM CDT) Only the most recent of 12 results within the time period is included. Protime 13.8 11.7 - 14.7 seconds [facility] INR 1.1 <=5.9 [facility] Specimen Blood - Arm, Left Narrative Performed At RECOMMENDED COUMADIN/WARFARIN INR THERAPY RANGES [facility] STANDARD DOSE: 2.0 - 3.0 Includes: PROPHYLAXIS for venous thrombosis, [facility] systemic embolization; TREATMENT for venous thrombosis and/or pulmonary embolus. HIGH RISK: Target INR is 2.5-3.5 for patients with mechanical heart valves. Performing Organization Address City/[facility]/Zipcode Phone Number [address] [address] [facility] * HEMODIALYSIS INPATIENT (10/10/2017 12:27 [...] w/u completion. Doesn't want to go to [place]. Objective: Patient seen and examined on HD [...] control per Dr Rashid. PT/PMNR eval. Alerted service parts coordinator pt is here. Renal dose pepcid. Check iron studies. Add nephrovite. Next HD Thurs to get back on TTS schedule. * Iron, TIBC, % sat. (without ferritin) (10/10/2017 9:34 AM CDT) Iron 50 40 - 160 ug/dL [facility] TIBC 159 (L) 250 - 450 ug/dL [facility] Iron % Saturation 31 20 - 55 % [facility] Specimen Blood - Arm, Left Performing Organization Address [facility] Phone Number [address] [address] [phone] [place] [address] * Ferritin (10/10/2017 9:34 AM CDT) Ferritin 2,367 (H) 5 - 275 ng/mL [facility] Specimen Blood - Arm, Left Performing Organization Address [facility] [place] [address] [phone] [place] [address] * Lactic acid, arterial, whole blood (10/08/2017 5:07 AM CDT) Only the most recent of 8 results within the time period is included. Lactate, Art 1.7 0.5 - 2.2 mmol/L [facility] Specimen Blood, Arterial Narrative Performed At Effective 11/26/2015: Units/Reference Range Change [facility] New: 0.5-2.2 mmol/LPrevious: 5-20 mg/dL [facility] Performing Organization Address [facility] Phone Number [address] [address] [phone] [place] [address] * Comprehensive metabolic panel (10/06/2017 10:13 AM CDT) Protein, Total 6.9 6.0 - 8.3 gm/dL [facility] Albumin 3.5 3.5 - 5.0 g/dL [facility] Alkaline Phosphatase 109 40 - 150 U/L [facility] Total Bilirubin 0.4 0.2 - 1.2 mg/dL [facility] Sodium 138 136 - 145 meq/L [facility] Potassium 4.7 3.5 - 5.1 meq/L [facility] Chloride 102 98 - 107 meq/L [facility] CO2 18 (L) 22 - 29 meq/L [facility] BUN 78 (H) 7 - 21 mg/dL [facility] Creatinine 4.98 (H) 0.57 - 1.25 mg/dL [facility] Glucose 234 (H) 70 - 105 mg/dL [facility] Calcium 8.7 8.4 - 10.2 mg/dL [facility] AST 26 5 - 34 U/L [facility] ALT 13 6 - 55 U/L [facility] EGFR 9Comment: ESTIMATED GFR IS NOT mL/min/1.73 sq m [facility] ACCURATE CREATININE [facility] CLEARANCE IN PREDICTING GLOMERULAR FILTRATION RATE. ESTIMATED GFR IS NOT APPLICABLE FOR DIALYSIS PATIENTS. Specimen Blood Performing Organization Address City/State/Zipcode Phone Number [facility] [address] [place] [address] MEDICAL CENTER * Blood gas, arterial (10/06/2017 10:11 AM CDT) Only the most recent of 10 results within the time period is included. pH, Arterial 7.44 7.35 - 7.45 [facility] pCO2, Arterial 32 (L) 35 - 45 mmHg [facility] pO2, Arterial 115 (H) 80 - 90 mmHg [facility] O2 Sat, Arterial 98.4 (H) 96.0 - 97.0 % [facility] HCO3, Arterial 21 21 - 29 mmol/L [facility] Base Excess, Arterial -2.3 (L) -2.0 - 3.0 mmol/L [facility] Patient Temperature 37.0 C [facility] FIO2 24.0 % [facility] Specimen Blood, Arterial Performing Organization Address City/[facility]/Zipcode Phone Number [facility] [address] [place] [address] [facility] * XR abdomen / KUB [...] MD Report Verified Date/Time:10/05/2017 16:28:34 Reading Location: [address] Consult Reading Room Procedure Note Interface, [...] Report Verified Date/Time: 10/05/2017 16:28:34 Reading Location: [facility] C0[facility] Consult Reading Room Performing Organization Address City/State/Zipcode Phone Number GE [facility] * TSH/Free T4 If Indicated (10/05/2017 12:04 PM CDT) TSH 0.96 0.35 - 4.94 uIU/mL [facility] Specimen Blood Performing Organization Address City/[facility]/Zipcode Phone Number [facility] [address] [place] [address] MEDICAL CENTER * Ammonia (10/05/2017 12:04 PM CDT) Ammonia 15 (L) 18 - 72 mol/L [facility] Specimen Blood Performing Organization Address City/State/Zipcode Phone Number [facility] [address] [place] [address] MEDICAL CENTER * ECG 12 lead (10/05/2017 10:39 AM CDT) Only the most recent of 2 results within the time period is included. Narrative Performed At Ventricular Rate 132 BPM GE MUSE Atrial Rate 132 BPM P-R Interval 126 ms QRS Duration 96 ms Q-T Interval 368 ms QTC Calculation(Bazett) 545 ms P [place] 34 degrees R [place] 141 degrees T [place] 53 degrees Poor data quality, interpretation may [...] 368 ms QTC Calculation(Bazett) 545 ms P [place] 34 degrees R [place] 141 degrees T [place] 53 degrees Poor data quality, interpretation may [...] bag Narrative Performed At Performing Organization Address City/[facility] Phone Number [facility] [address] [place], [place] * Vancomycin level, random (10/04/2017 5:29 AM CDT) Only the most recent of 2 results within the time period is included. Vancomycin Rm 18.8 ug/mL [facility] Specimen Blood - Line, Arterial Narrative Performed At Reference Range: No Normals [facility] Performing Organization Address City/[facility] Phone Number [place] [phone] [place] [address] MEDICAL CENTER * Prepare Leuko-Red RBC (10/03/2017 11:54 PM CDT) CROSSMATCH COMPATIBLE SAFETRACE TX Unit ABO A Pos SAFETRACE TX UNIT NUMBER [id number] SAFETRACE TX Status TRANSFUSED SAFETRACE TX Blood Bank Product RED BLOOD CELLS SAFETRACE TX PRODUCT CODE [id number] SAFETRACE TX Specimen Other Performing Organization Address City/[facility] Phone Number SAFETRACE [place] * Hemoglobin and hematocrit (10/03/2017 2:41 PM CDT) Only the most recent of 4 results within the time period is included. Hemoglobin 9.3 (L) 11.2 - 15.7 GM/DL [facility] Hematocrit 28.8 (L) 34.1 - 44.9 % [facility] Specimen Blood - Line, Arterial Performing Organization Address City/State/Zipcode Phone Number [facility] [address] [place] [address] MEDICAL CENTER * CT brain without IV contrast (10/03/2017 12:03 PM CDT) Narrative Performed At FINAL REPORT [facility] CT Head without contrast CLINICAL HISTORY: Encephalopathy [...] MD Report Verified Date/Time:10/03/2017 12:17:19 Reading Location: [facility] B1 C013V Neuro Reading Room Procedure Note [...] Report Verified Date/Time: 10/03/2017 12:17:19 Reading Location: [facility] C0[facility] Neuro Reading Room Performing Organization Address City/State/Zipcode Phone Number [facility] * Hepatic function panel (10/03/2017 3:28 AM CDT) Only the most recent of 4 results within the time period is included. Protein, Total 6.2 6.0 - 8.3 gm/dL [facility] Albumin 3.2 (L) 3.5 - 5.0 g/dL [facility] Total Bilirubin 0.6 0.2 - 1.2 mg/dL [facility] Bilirubin, Direct 0.3 0.1 - 0.5 mg/dL [facility] Alkaline Phosphatase 113 40 - 150 U/L [facility] AST 29 5 - 34 U/L [facility] ALT 20 6 - 55 U/L [facility] Specimen Blood Performing Organization Address City/[facility]/Zipcode Phone Number [facility] [address] [place] [address] MEDICAL CENTER * Blood culture (10/02/2017 8:17 PM CDT) Only the most recent of 5 results within the time period is included. Result No growth in 5 days [facility] Specimen Blood - Line, Arterial Performing Organization Address [facility] Phone Number [facility] [address] [place] [address] [phone] * Transfuse Leuko-Red RBC (10/02/2017 11:06 AM CDT) Only the most recent of 2 results within the time period is included. * Type and screen, automated (10/02/2017 9:04 AM CDT) ABO/RH AUTOMATED (BEAKER) A POSITIVE [facility] Ab Scrn NEGATIVE [facility] Specimen Blood Performing Organization Address [facility] Phone Number [address] * Calcium, Ionized (10/02/2017 4:35 AM CDT) Only the most recent of 3 results within the time period is included. Calcium, Ion 1.02 (L) 1.12 - 1.27 mmol/L [facility] pH, Blood 7.53 [facility] Specimen Blood - Line, Arterial Performing Organization Address [facility] [place] [place] [address] [phone] [address] * ECHOCARDIOGRAM REPORT - SCAN (10/01/2017 6:20 PM HOLIDAY DETECTOR OPERATOR) Narrative Performed At * CMV PCR, quantitative (10/01/2017 2:33 PM HOLIDAY DETECTOR OPERATOR) CMV DNA Viral Load Negative or below the linear [facility] range of the assay (<375 [facility] copies/mL) Specimen Blood Narrative Performed At Cytomegalovirus (CMV) infection can cause significant disease in [facility] immunosuppressed patients. However, it is common for CMV to manifest as a [facility] limited infection which is of no [...] and its performance characteristics determined by the [facility] Pathology Department, Section of Molecular Pathology. It has not been cleared or approved by the U.S. Food and Drug Administration (FDA), since FDA approval is not required for clinical use of the test. Validation was done as required by The Clinical Laboratory Improvement Amendments of 1988. Performing Organization Address City/State/Zipcode Phone Number [facility] [address] [place] [address] [facility] * 2D Echo W/Doppler(CW/PW/Color) (10/01/2017 1:18 PM HOLIDAY DETECTOR OPERATOR) Ejection Fraction [facility] Narrative Performed At Transthoracic Echocardiography Report (TTE) [facility] Demographics [facility] Patient Name FUNMI MONTERROSO Date of Study 10/01/2017 MICHELLE [id number] GenderFemale Visit Number [id number] RaceUnknown [id number] Number [id number] Number Date of Birth1955 Referring Physician Betty Tran MD Age62 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) 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 Carroll Physician Procedure Type of Study TTE [...] External Ris In - 10/01/2017 5:56 PM HOLIDAY DETECTOR OPERATOR Transthoracic Echocardiography Report (TTE) Demographics Patient Name FUNMI MONTERROSO Date of Study 10/01/2017 MICHELLE Gender Female Visit Number [id number] Race Unknown Room Number [id number] Number Date of 1955 Referring Physician Betty Tran MD Age 62 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 [...] MD Report Verified Date/Time:10/01/2017 11:26:00 Reading Location: [address] Ortho Consult Reading Room Procedure Note Interface, External Ris In - 10/01/2017 11:28 AM HOLIDAY DETECTOR OPERATOR FINAL REPORT CT chest, abdomen, and pelvis [...] Report Verified Date/Time: 10/01/2017 11:26:00 Reading Location: [facility] B1 C013X Ortho Consult Reading Room Performing Organization Address City/State/Zipcode Phone Number RIS * CT chest with IV contrast (10/01/2017 11:05 AM HOLIDAY DETECTOR OPERATOR) Narrative Performed At FINAL REPORT [facility] CT chest, abdomen, and pelvis with contrast. [...] MD Report Verified Date/Time:10/01/2017 11:26:00 Reading Location: [facility] B1 C013X Ortho Consult Reading Room Procedure Note Interface, External Ris In - 10/01/2017 11:28 AM HOLIDAY DETECTOR OPERATOR FINAL REPORT CT chest, abdomen, and pelvis [...] Report Verified Date/Time: 10/01/2017 11:26:00 Reading Location: [facility] [id number] Ortho Consult Reading Room Performing Organization Address [facility] Phone Number [facility] * Bacterial culture + gram stain (10/01/2017 9:40 AM HOLIDAY DETECTOR OPERATOR) Result [facility] Result ASPERGILLUS FUMIGATUS (A) [facility] Gram Stain Result 4+ WBCs [facility] Gram Stain Result <1+ gram positive cocci in [facility] pairs and [facility] Specimen Bronch Washing - Lung Narrative Performed At 1+ Normal respiratory jasbir present [facility] Performing Organization Address [facility] Phone Number [place] [phone] [place] [address] MEDICAL CENTER * Fungus culture + smear (10/01/2017 9:40 AM HOLIDAY DETECTOR OPERATOR) Result [facility] Result VERNON DUBLINIENSIS (A) [facility] Result PEPTOCOCCUS NIGER (A) [facility] Result ASPERGILLUS TERREUS (A) [facility] Fungus Smear No fungi seen [facility] Specimen Bronch Washing - Lung Performing Organization Address [facility] [place] [address] [phone] [place] [address] * aPTT (10/01/2017 8:20 AM HOLIDAY DETECTOR OPERATOR) PTT 31.1 22.5 - 36.0 seconds [facility] Specimen Blood Performing Organization Address City/[facility] [place] [address] [phone] [place] [address] * Fibrinogen (10/01/2017 8:20 AM HOLIDAY DETECTOR OPERATOR) Fibrinogen 531 (H) 225 - 434 mg/dl [facility] Specimen Blood Performing Organization Address [facility] [place] [address] [phone] [address] * Platelet count (10/01/2017 8:20 AM HOLIDAY DETECTOR OPERATOR) Platelets 131 (L) 150 - 450 K/CU MM [facility] Specimen Blood Performing Organization Address City/[facility] [place] [address] [phone] [place] [address] * RESPIRATORY PANEL [facility] (10/01/2017 7:05 AM HOLIDAY DETECTOR OPERATOR) Human Metapneumovirus Not detected Not detected, [facility] Rhinovirus Not detected Not detected, [facility] Inconclusive [facility] Influenza A Not detected Not detected, [facility] Inconclusive [facility] Influenza A subtype H1 Not detected Not detected, [facility] Inconclusive [facility] Influenza A Subtype H3 Not detected Not detected, [facility] Inconclusive [facility] Influenza A Subtype Not detected Not detected, [facility] H1-2009 Inconclusive [facility] Influenza B Not detected Not detected, [facility] Respiratory Syncytial Detected (A)Comment: Assay is Not detected, [facility] Virus not able differentiate between [facility] RSV A and RSV B Parainfluenza Virus 1 Not detected Not detected, [facility] Parainfluenza Virus 2 Not detected Not detected, [facility] Parainfluenza virus 3 Not detected Not detected, [facility] Parainfluenza Virus 4 Not detected Not detected, [facility] Adenovirus Not detected Not detected, [facility] Coronavirus 229E Not detected Not detected, [facility] Coronavirus HKU1 Not detected Not detected, [facility] Coronavirus NL63 Not detected Not detected, [facility] Coronavirus OC43 Not detected Not detected, [facility] Bordetella Pertussis Not detected Not detected, [facility] Chlamydophila Pneumoniae Not detected Not detected, [facility] Mycoplasma Pneumoniae Not detected Not detected, [facility] Specimen Nasopharyngeal - Nasal, Right Performing Organization Address City/State/Zipcode Phone Number [facility] [address] [place] [address] [facility] * HEMODIALYSIS INPATIENT (10/01/2017 4:28 AM HOLIDAY DETECTOR OPERATOR) Narrative Performed At Kayla Titus RN 10/01/20174:28 [...] Hepatitis B surface antigen (10/01/2017 12:35 AM HOLIDAY DETECTOR OPERATOR) hepatitis B Surface Ag NON-REACTIVE Nonreactive [facility] Specimen Blood Performing Organization Address City/State/Zipcode Phone Number [facility] [address] [place] [address] [facility] [place] * Urinalysis w/ Microscopic (09/30/2017 11:41 PM HOLIDAY DETECTOR OPERATOR) Color, UA Yellow [facility] Clarity, UA Clear [facility] Specific [place], UA 1.012 1.001 - 1.035 [facility] pH, UA 7.5 5.0 - 8.0 [facility] Protein, UA 300 mg/dL (A) Negative [facility] Glucose, UA Negative Negative [facility] Ketones, UA Negative Negative [facility] Bilirubin, UA Negative Negative [facility] Blood, UA Moderate (A) Negative [facility] Nitrite, UA Negative Negative [facility] Leukocytes, UA Negative Negative [facility] Urobilinogen, UA 0.2 0.2 - 1.0 mg/dL [facility] RBC, UA 79 /HPF [facility] WBC, UA 2 /HPF [facility] Bacteria, UA Rare [facility] Mucus Rare [facility] Squam Epithel, UA <1 /HPF [facility] Specimen Source Urine, Hercules [facility] Specimen Urine - Urine, Hercules Performing Organization Address [facility] Phone Number [address] * Urine culture (09/30/2017 11:41 PM HOLIDAY DETECTOR OPERATOR) Result No growth [facility] Specimen Urine - Urine, Hercules Performing Organization Address [facility] Phone Number [address] * Potassium-Stat Lab (09/30/2017 11:35 PM HOLIDAY DETECTOR OPERATOR) Potassium 6.5 (HH) 3.6 - 5.5 meq/L [facility] Specimen Blood, Arterial Performing Organization Address [facility] Phone Number [address] * Sodium Na-Stat Lab (09/30/2017 11:35 PM HOLIDAY DETECTOR OPERATOR) Sodium 135 135 - 148 meq/L [facility] Specimen Blood, Arterial Performing Organization Address [facility] Phone Number [address] * Glucose-Stat Lab (09/30/2017 11:35 PM HOLIDAY DETECTOR OPERATOR) Glucose 167 (H) 70 - 110 mg/dL [facility] Specimen Blood, Arterial Performing Organization Address [facility] Phone Number [address] * HGB/HCT (H&H)-Stat Lab (09/30/2017 11:35 PM HOLIDAY DETECTOR OPERATOR) Hemoglobin 10.9 (L) 12.0 - 15.0 g/dL [facility] Hematocrit 32.0 (L) 36.0 - 45.0 % [facility] Specimen Blood, Arterial Performing Organization Address City/[facility] Phone Number [facility] [address] [place] [address] [facility] * Blood gas, venous (09/30/2017 11:33 PM HOLIDAY DETECTOR OPERATOR) pH, Aren 7.34 7.32 - 7.42 [facility] pCO2, Aren 41 41 - 51 mmHg [facility] pO2, Aren 52 (H) 25 - 40 mmHg [facility] O2 Sat, Aren 85.9 (H) 40.0 - 70.0 % [facility] HCO3, Aren 22 21 - 29 mmol/L [facility] Base Excess, Aren -3.9 (L) -2.0 - 3.0 mmol/L [facility] Patient Temperature 36.7 C [facility] FIO2 40.0 % [facility] Specimen Blood Performing Organization Address [facility] Phone Number [facility] [address] [place] [address] [phone] [place] [address] * Hepatitis A Antibody, IgG ([facility] Only) (08/24/2017 12:44 PM HOLIDAY DETECTOR OPERATOR) Hep A IgG Reactive (A) Nonreactive [facility] Specimen Blood Performing Organization Address City/[facility] Phone Number [facility] [address] [place] [address] [facility] * Alpha fetoprotein (AFP), tumor marker (08/24/2017 12:44 PM HOLIDAY DETECTOR OPERATOR) Alpha-Fetoprotein 2.0 <10.0 ng/mL [facility] Specimen Blood Performing Organization Address City/[facility] Phone Number [facility] [address] [place] [address] [facility] * Hepatitis C genotype (08/24/2017 12:44 PM HOLIDAY DETECTOR OPERATOR) HCV Genotype, LiPA NOT DETECTED [facility] [...] analytical performance characteristics have been determined by [facility]. It has not been cleared or approved by FDA. This assay has been validated pursuant to the CLIA regulations and is used for clinical purposes. http://education.[employer].com /faq/HCVGenotyping Specimen Blood Narrative Performed At Performing Lab [employer] [facility] [facility] [address] [place] [address] Sandor Huber MD Performing Organization Address City/[facility] Phone Number [facility], [address] [place], [place] [address] [facility] [address] * Hepatitis C RNA, Quantitative (08/24/2017 12:44 PM HOLIDAY DETECTOR OPERATOR) HCV PCR, Quantitative HCV RNA not detected HCV RNA not detected [facility] Specimen Blood Narrative Performed At This test uses a Real-Time Polymerase Chain Reaction (RT-PCR) methodology and [facility] was performed using SERA Ampliprep/SERA TaqMan HCV test kit version 2.0 [facility] ([employer] Reportable range for this assay [...] - 8.00 Log IU/mL). Performing Organization Address City/[facility]/Zipcode Phone Number [facility] [address] [id number] [facility] * TSH (08/24/2017 12:44 PM HOLIDAY DETECTOR OPERATOR) TSH 2.90 0.35 - 4.94 uIU/mL [facility] Specimen Blood Performing Organization Address City/State/Zipcode Phone Number [address] [address] [facility] * Gamma Glutamyl Transferase (GGT) (08/24/2017 12:44 PM HOLIDAY DETECTOR OPERATOR) GGT 17 9 - 64 U/L [facility] Specimen Blood Performing Organization Address City/[facility]/Zipcode Phone Number [address] [address] [facility] after 08/24/2017 Insurance Payer Benefit Subscriber ID Type Phone Address Plan / Group BLUE CROSS/BLUE SHIELD - BCBS xxxxxxxxxxxx MEDICARE MGD CARE MEDICARE ADVANTAGE Advance Directives For more information, please contact: [address] [address] Date Inactivated Comments Code Status [...]
[2018-08-25 21:13] VITALS: BP 184/110
[2018-08-25 21:15] VITALS: BP 184/110
--- NOTE | 2018-08-25 21:20 | NUR ---
PATIENT RECEIVED FROM ER. PATIENT IS RESTING IN BED, AAOX2. RESP EVEN AND UNLABORED. NO ACUTE DISTRESS NOTED. PATIENT DENIES OF ANY PAIN OR DISCOMFORT. LEFT SUBCLAVIAN TUNNEL DIALYSIS CATH NOTE, CLEAN AND INTACT. GTUBE NOTE, DRY AND INTACT. PATIENT UNABLE TO RECALL HOME MED LIST. WILL OBTAIN FROM FAMILY IN AM. ORIENTED TO ROOM. BED ALARM IS ON. CALL LIGHT WITHIN REACH. INSTRUCT TO CALL FOR ASSISTANCE. BED LOW/LOCKED. CONTINUE TO MONITOR CLOSELY
[2018-08-25] MEDS: HYDRALAZINE HCL 20 MG/ML VIAL IV PRN (22:52)
[2018-08-26] VITALS (8 sets, daily range): BP systolic 143–179; BP diastolic 102–114
[2018-08-26] MEDS: HYDRALAZINE HCL 20 MG/ML VIAL IV PRN (05:33)
--- NOTE | 2018-08-26 06:50 | NUR ---
NOTIFIED DR OH HIGH BP. ORDER TO RENEW HOME MED WHEN IT'S AVAILABLE.
[2018-08-26 07:17] LABS: BASOPHILS # (AUTO) 0.1 (0.0-0.1); EOSINOPHILS # (AUTO) 0.1 (0.0-0.4); EOSINOPHILS % 1.8 % (0.0-6.0); HEMATOCRIT 34.9 % (34.2-44.1); HEMOGLOBIN 11.8 g/dL (12.0-16.0); LYMPHOCYTES # (AUTO) 1.6 (1.0-3.2); LYMPHOCYTES % 32.4 % (18.0-39.1); MEAN CORPUSCULAR HEMOGLOBIN 30.8 pg (28-32); MEAN CORPUSCULAR HGB CONC 33.8 g/dL (31-35); MEAN CORPUSCULAR VOLUME 91.1 fL (81-99); MONOCYTES # (AUTO) 0.3 (0.2-0.8); MONOCYTES % 5.4 % (4.4-11.3); NEUTROPHILS % 59.2 % (38.7-80.0); PLATELET COUNT 158 x10e3/uL (140-360); RED BLOOD COUNT 3.83 x10e6/uL (3.6-5.1)
--- NOTE | 2018-08-26 07:27 | NUR ---
SPOKE WITH DR NUNN. ORDERED FOR PATIENT TO HAVE DIALYSIS TODAY. RELATED MESSAGE TO [facility]
[2018-08-26 07:40] LABS: CREATINE KINASE MB 2.3 ng/mL (0-5.0)
[2018-08-26 07:56] LABS: ANION GAP 18.6 mmol/L (8-16); CALCIUM 8.3 mg/dL (8.4-10.2); CREATININE, SERUM 6.47 mg/dL (0.57-1.11); POTASSIUM 4.6 mmol/L (3.5-5.1)
[2018-08-26] MEDS: ONDANSETRON HCL INJ 2MG/ML 2ML 2 MG/ML VIAL IV PRN ×2 (10:38→22:51)
--- NOTE | 2018-08-26 11:05 | History and Physical ---
REASON FOR ADMISSION: Weakness. HISTORY OF PRESENT ILLNESS: The patient is a lady who was recently discharged from the outside hospital where I wanted the patient to go to [facility] facility, but she refused. The patient went home and was unable to take care of herself, missed dialysis, and then therefore came back in. PAST MEDICAL HISTORY: Significant for endstage renal disease, hypertension, chronic anemia, history of heart transplant, hyperlipidemia, hypothyroidism, and seizure disorder. MEDICATIONS: See MAR. ALLERGIES: CODEINE, PENICILLIN, . SOCIAL HISTORY: Nonsmoker, nondrinker. She lives at home with her . FAMILY HISTORY: Hypertension. PHYSICAL EXAMINATION VITAL SIGNS: Temperature pulse 111, blood pressure 167/114, O2 sat 98%. GENERAL: She is in no apparent distress. LUNGS: Clear to auscultation bilaterally. NECK: Supple. CARDIOVASCULAR: Regular rate and rhythm. ABDOMEN: Good bowel sounds. Soft, nontender. EXTREMITIES: No clubbing or cyanosis. NEUROLOGIC: Nonfocal. ASSESSMENT AND PLAN 1. Weakness with stat physical therapy. The patient most likely will need [facility] facility and discharged with endstage renal disease and patient experienced a good dialysis today . 2. Seizure disorder. Continue with home medication. 3. Hypothyroidism. Continue with home medication. 4. Anemia. Continue to monitor the hemoglobin, is doing well at this point. 5. History of heart transplant. We will continue with her home medications. Please see hospital chart for full details. Job#: [id number] MINOR
[2018-08-26 11:49] LABS: CREATINE KINASE MB 2.4 ng/mL (0-5.0)
--- NOTE | 2018-08-26 12:29 | NUR ---
Nutrition Intervention Note RD Recommendation(s) for Physician: Continue diet as ordered Plan of Care: RD following, monitoring for tolerance and adequacy Nutrition reason for involvement: Nutrition Risk Trigger - BMI 16.4/heart transplant RD Assessment Initial encounter with patient. Pt was not able to provide a nutrition Hx at time of visit and not saying more than yes or no. Pt states that she ate well, but vomited. 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 Pt is well known at [facility] and has been losing wt gradually over the last several years. Pt needs to be fed. Denies any difficulty chewing or swallowing. Pt has missing teeth. Principal Problems/Diagnoses: Decreased ADLs PMH:CKD stage 5 on HD, Seizure DO, HTN, heart transplant, hyperlipidemia, Hypothyroid IVF: None GI: Nausea/vomiting Skin: Intact Labs: (08/26/2018) lab results reviewed Meds: (08/26/2018) MAR reviewed Malnutrition Evaluation (08/26/2018) The patient meets criteria for unspecified SEVERE protein-calorie malnutrition. Energy intake: <75% of estimated energy requirements for >3 months Weight loss: >20% in 1 year (Chronic) Fat loss: unable to evaluate _ Pt was cold and covered with extra blankets and unable to perform a complete physical assessment. Muscle loss: unable to evaluate. Pt was cold and covered with extra blankets and unable to perform a complete physical assessment. Supporting Evidence: Fluid accumulation: unable to evaluate. Pt was covered because she was too cold Functional Status: measurably reduced Diet Education Needs Assessment: Diet education not indicated Ht:63 Wt:92lbs BMI:16.4kg/m2 IBW:115lbs Estimated Nutritional Needs: 1045 - 1463 kcals at 25-35 kcals/kg/bw 42-63g of protein at 1-1.5g/kg/bw Nutrition Prescription (Diet Order): Renal diet Food Allergies: No known food allergies Diet Adequacy: Probably not meeting calorie needs or not meeting protein needs Tolerance: Not Tolerating PO with episode of emesis Nutrition Care Level: Moderate Nutrition Diagnosis: Malnutrition related to chronic illness as evidenced by a BMI of 16.4 Goal:Patient will meet 75-100% of estimated needs by follow up Progress: Not Progressing Interventions: General healthful diet, Schedule of food, -modified diet, Commercial beverage, Monitoring/Evaluation: Total energy intake, Total protein intake, Prescription medication, Modified diet, Liquid supplement, Weight change Sebastian Sapp RD, LD, CNSC
[2018-08-26] MEDS ORDERED: SODIUM CHLORIDE 0.9% 1000ML 2,000 ML ONE (14:08)
[2018-08-26] MEDS ORDERED: HEPARIN SOD (PORCINE) 1000 UNIT/ML SDV ONE ×2 (14:08→14:36)
--- NOTE | 2018-08-26 14:17 | NUR ---
TELEPHONED PT PER PT REQUEST TO CLARIFY HOME MEDICATIONS, NO ANSWER,
[2018-08-26] MEDS ORDERED: METOPROLOL TARTRATE 25 MG TAB PO SCH (14:45)
[2018-08-26] MEDS ORDERED: TRAMADOL/APAP 37.5MG-325MG TAB PO PRN (14:45)
--- NOTE | 2018-08-26 14:45 | NUR ---
SPOKE WITH MD OH, MADE AWARE THAT NURSE UNABLE TO REACH FAMILY FOR HOME MEDICATION CLARIFICATION, ORDERS NOTED, MD NUNN INTO SEE PT, ORDERS NOTED
[2018-08-26] MEDS: CLONIDINE HCL 0.1 MG TAB PO SCH ×2 (15:30→21:00)
--- NOTE | 2018-08-26 16:07 | Consultation ---
DATE OF CONSULTATION: RENAL CONSULTATION Thank you for the consultation, Dr. Elsie Hallman. HISTORY OF PRESENT ILLNESS: Ms. Paez is a well-known patient of mine, 63-year-old female with past medical history significant for end-stage renal disease, on hemodialysis, Tuesday, , Tuesday at [facility] dialysis facility under my care. She has had multiple AV fistulas placed previously with multiple central venous stenoses episodes subsequently leading to the patient having a tunneled dialysis catheter placed on the left chest area and also for the patient to have volunteer to do a peritoneal dialysis once her training has been started. She has gotten a PD catheter now for almost 2 months; however, she keeps getting back into the hospital for several different reasons and particularly has been week and tired and when she misses her dialysis, get uremic and recently was hospitalized at [facility] for uremic seizures. Subsequently admitted here at [facility] after she missed her dialysis on , she was just discharged from [facility] earlier this week. The patient is visibly short of breath. Patient is hypertensive on the tachycardic side. At this time, requires urgent dialysis, which is being done in the room and seen at the start of her dialysis treatment. She is somewhat short of breath, does not have any chest pain. No fever, no chills. No abdominal pain. No nausea, no vomiting. Does have generalized pain. PAST MEDICAL HISTORY: End-stage renal disease, history of hypertension, history of fluid overload, history of uremic seizures, history of cardiac transplant, which is currently stable on her current medications of MICAH and tacrolimus. ALLERGIES: PENICILLIN, CODEINE, AND . SOCIAL HISTORY: No tobacco, no alcohol use. FAMILY HISTORY: Noncontributory. REVIEW OF SYSTEMS: See HPI. Otherwise all systems negative. MEDICATIONS: She takes Mycophenolate mofetil 500 mg twice a day. She takes tacrolimus 1 mg q.a.m. She is also on magnesium oxide, atorvastatin, aspirin, and carvedilol. PHYSICAL EXAMINATION VITAL SIGNS: Blood pressure is 170s/113s, pulse 105, respirations 20, afebrile. HEENT: No cervical lymphadenopathy. NECK: Supple without masses. No obvious JVD. Moist-appearing oral mucosa. SKIN: Moist with good skin turgor. CHEST WALL: Good expansion. No chest wall tenderness. LUNGS: Rales bilaterally at the lung lambert. CARDIOVASCULAR: S1 and S2. No obvious gallop, rub, or murmur. ABDOMEN: Soft. Positive bowel sounds. Nontender. EXTREMITIES: Evidence of 1-2+ edema. No clubbing, no cyanosis. NEUROLOGICAL: Awake, alert and oriented x3. Grossly nonfocal exam. Has generalized weakness. LABS: Sodium 133, potassium 4.6, chloride 100, bicarb of 19, BUN 38, creatinine 6.47, calcium 8.3. H and H 11.8 and 34.9. IMPRESSION AND PLAN 1. End stage renal disease. We will continue to provide dialysis today and then Tuesday, , and Tuesday per her schedule. We will do additional treatments as needed if she requires it for fluid build up. 2. Hypertension. Resume her home blood pressure medications. In particular, she has been on more recently not carvedilol, but metoprolol. She also takes lisinopril and she has also been on clonidine. We will resume her home BP meds gradually and we will titrate them up gradually and make further recommendations. 3. Anemia of chronic disease. Stable H and H. We will continue to monitor and continue to place on Epogen as needed if hemoglobin drops below 10. 4. Fluid overload. We will do dialysis today and try to ultrafilter about 3 to 4 kilos. Thank you once again for the consultation. We will follow the patient closely along with you and make further recommendations. Job#: [id number] OWEN cc:ELSIE HALLMAN MD
[2018-08-26] MEDS ORDERED: LISINOPRIL 10 MG TAB PO SCH (17:00)
[2018-08-26] MEDS ORDERED: MYCOPHENOLATE MOFETIL 250 MG CAP PO SCH (17:00)
[2018-08-26] MEDS ORDERED: SODIUM CHLORIDE 0.9% 1000ML 1,000 ML ONE (17:43)
[2018-08-26] MEDS ORDERED: ALTEPLASE RECOMBINANT 2 MG/2 ML VIAL ONE (18:24)
[2018-08-26] MEDS ORDERED: COREG12.5 MG PO (18:28)
[2018-08-26] MEDS ORDERED: AMLODIPINE BESY10 MG PO (18:28)
[2018-08-26] MEDS ORDERED: ULTRACET TABLE1 EACH PO (18:28)
[2018-08-26] MEDS ORDERED: CITALOPRAM HBR20 MG PO (18:28)
[2018-08-26] MEDS ORDERED: CLONIDINE HCL0.1 MG PO (18:28)
--- NOTE | 2018-08-26 20:00 | NUR ---
Received change of shift report from AM nurse. Walking rounds completed.
[2018-08-26] MEDS: LEVETIRACETAM 500 MG TAB PO SCH (21:00)
[2018-08-26] MEDS: LISINOPRIL 10 MG TAB PO SCH (21:00)
[2018-08-26] MEDS: MYCOPHENOLATE MOFETIL 250 MG CAP PO SCH (21:00)
[2018-08-26] MEDS: METOPROLOL TARTRATE 25 MG TAB PO SCH (21:00)
[2018-08-26] MEDS ORDERED: MORPHINE SULFATE 2 MG/ML SYR 1ML IV PRN (22:15)
[2018-08-26] MEDS: MORPHINE SULFATE INJ 4 MG/ML INJ 1ML IV PRN (22:50)
--- NOTE | 2018-08-26 23:50 | NUR ---
Dialysis completed. 1000ml off. Patient BP WNL. Patient states she feels well. c/o pain given morphine which ordered by .
[2018-08-27] VITALS (9 sets, daily range): BP systolic 90–159; BP diastolic 44–96
--- NOTE | 2018-08-27 06:01 | NUR ---
Patient resting quitly in bed with no c/o at this time. Continue monitor.
[2018-08-27 07:03] LABS: ANION GAP 15.8 mmol/L (8-16); CALCIUM 8.4 mg/dL (8.4-10.2); CREATININE, SERUM 4.8 mg/dL (0.57-1.11); POTASSIUM 4.8 mmol/L (3.5-5.1)
[2018-08-27] MEDS: LISINOPRIL 10 MG TAB PO SCH (09:00)
[2018-08-27] MEDS: METOPROLOL TARTRATE 25 MG TAB PO SCH ×2 (09:00→21:59)
[2018-08-27] MEDS: MYCOPHENOLATE MOFETIL 250 MG CAP PO SCH ×2 (10:00→21:58)
[2018-08-27] MEDS: LEVETIRACETAM 500 MG TAB PO SCH ×2 (10:00→21:58)
[2018-08-27] MEDS: CLONIDINE HCL 0.1 MG TAB PO SCH (10:00)
[2018-08-27] MEDS: TACROLIMUS 1 MG CAP PO SCH (10:00)
--- NOTE | 2018-08-27 14:10 | NUR ---
Visit made by the Spiritual Care Department Pastoral Visitor, Diogo Wolf. PV provided pastoral presence, hospitality, and supportive listening. Pastoral Visitor informed pt/family of the scope of Plan Manager Services and availability. AIDE ROLDAN Bindery Machine Setter/Set Up Operator Spiritual Care Department O: [phone] Pager: [phone] ([phone] number calling from)
--- NOTE | 2018-08-27 14:11 | NUR ---
SPOKE WITH MD OH, MADE AWARE OF PT LOW BLOOD PRESSURE 85/55, MANUALLY 90/48, MADE AWARE THAT AM BP MEDICATIONS WERE HELD EXCEPT CLONIDINE, ORDERS NOTED
--- NOTE | 2018-08-27 14:59 | Progress Note ---
DATE: August 27, 2018 RENAL PROGRESS NOTE SUBJECTIVE: Followed for end-stage renal disease. Tolerating dialysis. Yesterday, however, dialysis catheter was not functioning. The patient is scheduled to have a new dialysis catheter placed tomorrow. Labs from yesterday are stable. Chemistries done today; sodium 136, potassium 4.8, BUN is 25, creatinine is 4.8. No nausea, no vomiting, no shortness of breath. OBJECTIVE VITAL SIGNS: Have been noted. Blood pressures are actually on the low side of normal 90-120s/70s, pulse 86, afebrile. LUNGS: Clear to auscultation bilaterally. CARDIOVASCULAR: S1 and S2 normal. ABDOMEN: Soft, nontender. EXTREMITIES: No edema. LABS: Reviewed. IMPRESSION AND PLAN 1. End-stage renal disease. Next dialysis will be on Tuesday and we will keep on Tuesday, , and Tuesday scheduled. We will get a tunneled dialysis catheter replaced tomorrow. 2. Hypotension. We will cut back blood pressure lowering medicines since the patient's blood pressure is too tightly controlled. 3. Anemia of chronic disease, stable. We will continue to monitor. Job#: [id number] MINOR
--- NOTE | 2018-08-27 15:05 | NUR ---
Visit made by the Spiritual Care Department Pastoral Visitor, Lisa Warner. PV provided pastoral presence, hospitality, and supportive listening. Pastoral Visitor informed pt/family of the scope of Ceramic Tiler Services and availability. AIED ROLDAN Talent Recruiter Spiritual Care Department O: [phone] Pager: [phone] ([phone] number calling from)
[2018-08-27] MEDS: ONDANSETRON HCL INJ 2MG/ML 2ML 2 MG/ML VIAL IV PRN (17:56)
[2018-08-27] MEDS: MORPHINE SULFATE INJ 4 MG/ML INJ 1ML IV PRN (17:56)
--- NOTE | 2018-08-27 18:36 | NUR ---
TOLERATING PO, PAIN IMPROVED, VOICES NO NEEDS AT THIS TIME, CALL LIGHT WITHIN REACH
--- NOTE | 2018-08-27 20:19 | NUR ---
PATIENT REPOSITION IN BED FOR COMFORT, SHE C/O PAIN TO THE RIGHT SHOULDER. TRAMADOL OFFER BUT THE PATIENT REFUSED IT AND STATED "IT WON'T WORK". BED ALARM ON, CALL LIGHT WITHIN EASY REACH, WILL ADMINISTER MORPHINE FOR PAIN ONCE IT'S TIME FOR THE MEDICATION.
[2018-08-28] VITALS (7 sets, daily range): BP systolic 94–153; BP diastolic 51–96
--- NOTE | 2018-08-28 00:48 | NUR ---
PATIENT IS SOUND ASLEEP, SHE'S EASY TO AROUSE. SHE DENIES PAIN AND STATED "I JUST WANT TO SLEEP". BED ALARM ON, CALL LIGHT WITHIN EASY REACH.
--- NOTE | 2018-08-28 03:58 | NUR ---
PATIENT IS ASLEEP, SHE'S EASY TO AROUSE. NO RESPIRATORY DISTRESS OBSERVED, SHE WAS REPOSITION FOR COMFORT. CALL LIGHT WITHIN EASY REACH, WILL CONTINUE TO CLOSELY MONITOR THE PATIENT.
[2018-08-28 06:21] LABS: BASOPHILS % 0.6 % (0.0-1.0); EOSINOPHILS # (AUTO) 0.2 (0.0-0.4); EOSINOPHILS % 2.8 % (0.0-6.0); HEMATOCRIT 28.1 % (34.2-44.1); HEMOGLOBIN 8.8 g/dL (12.0-16.0); LYMPHOCYTES # (AUTO) 2.1 (1.0-3.2); LYMPHOCYTES % 32.7 % (18.0-39.1); MEAN CORPUSCULAR HEMOGLOBIN 29.8 pg (28-32); MEAN CORPUSCULAR HGB CONC 31.3 g/dL (31-35); MEAN CORPUSCULAR VOLUME 95.3 fL (81-99); MONOCYTES # (AUTO) 0.5 (0.2-0.8); NEUTROPHILS # (AUTO) 3.6 (2.1-6.9); NEUTROPHILS % 55.7 % (38.7-80.0); PLATELET COUNT 127 x10e3/uL (140-360); RED BLOOD COUNT 2.95 x10e6/uL (3.6-5.1); RED CELL DISTRIBUTION WIDTH 16.9 % (11.7-14.4)
[2018-08-28 06:48] LABS: ANION GAP 15.3 mmol/L (8-16); CALCIUM 7.8 mg/dL (8.4-10.2); CREATININE, SERUM 5.94 mg/dL (0.57-1.11)
[2018-08-28 06:53] LABS: POTASSIUM 5.3 mmol/L (3.5-5.1)
[2018-08-28 07:32] LABS: INR 0.93; PROTHROMBIN TIME 13.3 seconds (11.9-14.5)
--- NOTE | 2018-08-28 07:44 | NUR ---
Attempted to call Dr. Victor twice to report critical labs. Phone number provided is busy.
--- NOTE | 2018-08-28 08:30 | NUR ---
No IV access at this time.
--- NOTE | 2018-08-28 09:29 | Progress Note ---
DATE: August 28, 2018 RENAL PROGRESS NOTE SUBJECTIVE: Followed for end-stage renal disease. Tolerated dialysis without any problems over the weekend. Normal dialysis days are Tuesday, , Tuesday. Next dialysis will be tomorrow. No nausea. No vomiting. No shortness of breath today. OBJECTIVE VITAL SIGNS: Noted. Blood pressure is better now at 133/83, 81 pulse, afebrile. LUNGS: Clear to auscultation bilaterally. CARDIOVASCULAR: S1 and S2 normal. ABDOMEN: Soft, nontender. EXTREMITIES: No edema. LABS: Hemoglobin 8.8, has dropped slightly, was 11.8 the day before yesterday. Chemistries: Sodium 134, potassium 5.3--has gone up, BUN 35, creatinine 5.94. IMPRESSION AND PLAN 1. End-stage renal disease. Will continue dialysis Tuesday, , Tuesday. No urgent need for dialysis today. 2. Hypertension. Blood pressure is better. Will continue on just low-dose metoprolol for now. 3. Anemia of chronic disease, stable. We will resume Epogen and make further recommendations. 4. Mild hyperkalemia. Will treat with Kayexalate. Also start oral sodium bicarbonate. 5. Next dialysis will be tomorrow. Job#: [id number]
[2018-08-28] MEDS ORDERED: SOD POLYSTYRENE SULFONATE SUSP 15 GM/60 ML BTL PO NR (09:30)
[2018-08-28] MEDS: LEVETIRACETAM 500 MG TAB PO SCH ×2 (09:59→21:45)
[2018-08-28] MEDS: MYCOPHENOLATE MOFETIL 250 MG CAP PO SCH ×2 (09:59→21:45)
[2018-08-28] MEDS: TACROLIMUS 1 MG CAP PO SCH (10:00)
[2018-08-28] MEDS: METOPROLOL TARTRATE 25 MG TAB PO SCH ×2 (10:00→21:00)
[2018-08-28] MEDS: SODIUM BICARBONATE 650 MG TAB PO SCH (10:48)
--- NOTE | 2018-08-28 10:57 | NUR ---
CASE MANAGEMENT INITIAL ASSESSMENT Chief Underwriter to bedside to discuss plan of care with patient/family. CM/SW role and care transitions discussed. Anticipated discharge plan discussed along with duration of care. CM/SW discussed patients right to make decisions in care. CM/SW work hours given. Patient lives: with Sebastien Admit/Transfer: thru ED Hospital/ER visits since last admit: stated she was in the hospital in Jun 2018 POA/Emergency contact: Sebastien Winn [phone] Current/Previous Home Health: none PCP/Follow-up Care: Dr. Hallman Current/Previous DME: has walker and wheelchair. states she has not been able to walk recently. uses her wheelchair mainly Medications (referring to index hospitalization or the first time you were in the hospital) a. Were changes made in your medications when you were in the hospital on [date of index hospitalization]? No b. Did you understand the changes? n/a Were you able to obtain your new medications right away? n/a d. Were you able to take your medications like the doctor wanted you to? yes e. Did the hospital give you an accurate, easy to understand list of medications when you left? yes Scale of 1-10 how comfortable does patient feel with disease management in outpatient setting: Other Services: dialysis at [facility] Employment Status: unemployed Areas of Concerns: weakness, unable to walk Referral Needs: SNF vs rehab Education Needs: medical management, physical therapy IMM/ONEIL given and signed (if applicable): none at this time Goal for discharge: pt wants to go to snf. Pt stated she has been at [place] previously and would like to return there. Choice letter signed and filed in chart. Copy given to pt. PT ordered to eval/treat. CM/SW left business card at the bedside with contact information. Name and number was also written on the patients whiteboard. Patient verbalized understanding of discussion. CM will follow-up with ongoing discharge and transition of care needs.
[2018-08-28] MEDS: MORPHINE SULFATE INJ 4 MG/ML INJ 1ML IV PRN (10:59)
--- NOTE | 2018-08-28 12:00 | NUR ---
ASSESSMENT: Spiritual concern Pt determined to fight illness. Pt states "I'm a fighter" and "my dad told me to never give up." Pt states she desires for fight to see her grandchildren and great-grandson. Intervention: Provided unhurried pastoral presence and empathic listening. Facilitated storytelling. Provided information on how to reach health education specialist if needed. Outcome: Will continue to follow as able. AIDE ROLDAN Gynecologist Spiritual Care Department O: [phone] Pager: [phone] ([phone] number calling from)
--- NOTE | 2018-08-28 12:00 | NUR ---
Referral was faxed for [facility] at [address] [address] P [phone] F [phone] Confirmed with liaison Juli Aponte that clinicals have been received. Will faxed PT notes once they become available.
--- NOTE | 2018-08-28 13:07 | NUR ---
Call placed to Dr. Victor regarding pending HD cath replacement.
--- NOTE | 2018-08-28 13:16 | NUR ---
Dr. Victor made aware of pt not NPO until 0730. Per Dr. Victor, pt is to have HD catheter placed today or first thing in the morning; laborer powerhouse is booked in the morning, so patient will have to have HD cath placed later today.
--- NOTE | 2018-08-28 15:15 | NUR ---
bedside report received from Racquel MANNING. Alert oriented and appropriate, PERRLA, respirations even and unlabored to room air. Pulses x4 equal and palpable. Pedal pulses PT/DP +1. Cap fill brisk < 3 sec. skin with scattered 1-1.5cm bruising. Patient states " i bruise so easily since my heart transplant". Skin warm and dry integrity appears intact. Pillows tucked over and to support lower marco prominences. IV 22g to right lateral AC presents healthy w/o s/s of infiltration or complaint. Abdomen soft and supple. pt denies need to urinate or defecate. adult depend clean and dry. No personal affects with patient. Family unavailable. Pt verbalizes understanding of POC. Pre-Op Meds none. Patient transferred from [facility] by cathead worker escort on bed, telemetry pack - none found. Currently w/o complaint of pain or need. Patient introduced to cath team and brief summary provided to team. Transferred to procedure table under max assist w/o duress. Patient secured to procedural table and patient prepped in usual fashion for TDC procedure, wire exchange. Hypercapnia monitoring initiated. pt expressing desire to "move" the catheter to different spot. pt desire conveyed to Dr. Cain -[facility]
[2018-08-28] MEDS ORDERED: HEPARIN SOD (PORCINE) 1000 UNIT/ML 30ML ONE (15:29)
[2018-08-28] MEDS ORDERED: FENTANYL CITRATE/PF 100MCG/2 ML INJ ONE ×2 (15:29→17:15)
[2018-08-28] MEDS ORDERED: SODIUM CHLORIDE 0.9% 500ML 1,000 ML ONE (15:29)
[2018-08-28] MEDS ORDERED: MIDAZOLAM HCL 2 MG/2 ML VIAL ONE ×2 (15:29→17:15)
[2018-08-28] MEDS ORDERED: LIDOCAINE HCL 1% LOCAL INJ 20 ML VIAL ONE (15:30)
[2018-08-28] MEDS ORDERED: IOPAMIDOL 300MG/ML 100 ML INFUS..BTL IV ONE (15:50)
[2018-08-28] MEDS ORDERED: SODIUM CHLORIDE 0.9% 1000ML 1,000 ML ONE (16:54)
--- NOTE | 2018-08-28 18:25 | NUR ---
Report provided to Racquel MANNING, review of procedural findings and medications given. Patient drowsy, easily aroused. maintains airway and room air saturations of 98-99%. No gross issues of pressure, pallor or dysrhythmia. Hypersensitivity to left upper dialysis site in the area of manual pressure during procedure. Skin around insertion site , dark rubra and "angry". IV site patent Saline locked. patient hemodynamically stable with hemostasis. left chest dressing CDI w/o s/s of bleeding. patient transferred to [facility]. Overall skin integrity remains intact and unchanged. transported to room 112 - cgf procedure: tunneled dialysis catheter left chest with brachiocephalic valvuloplasty Sheath puller: NA Meds Given Intra-Procedure Sedatives (divided doses) Versed - 2.5 mg Fentanyl - 175 mcg Anticoagulants Heparin - 2.2 ml packed each Dialysis port (1000units/ml) Fluids Input - 100 ml Output EBL 250ml per Dr Francois Contrast Isovue 300 - 60ml
--- NOTE | 2018-08-28 18:35 | NUR ---
Pt rec'd from laborer bituminous paving for HD catheter exchange, bedside report with laborer bituminous paving nurse, Helder.
[2018-08-28 20:16] LABS: BASOPHILS # (AUTO) 0.1 (0.0-0.1); BASOPHILS % 0.8 % (0.0-1.0); EOSINOPHILS # (AUTO) 0.2 (0.0-0.4); EOSINOPHILS % 2.4 % (0.0-6.0); HEMATOCRIT 27.3 % (34.2-44.1); HEMOGLOBIN 8.5 g/dL (12.0-16.0); LYMPHOCYTES # (AUTO) 2.3 (1.0-3.2); LYMPHOCYTES % 31.8 % (18.0-39.1); MEAN CORPUSCULAR HGB CONC 31.1 g/dL (31-35); MEAN CORPUSCULAR VOLUME 96.5 fL (81-99); MONOCYTES # (AUTO) 0.5 (0.2-0.8); MONOCYTES % 6.3 % (4.4-11.3); NEUTROPHILS # (AUTO) 4.2 (2.1-6.9); NEUTROPHILS % 58.1 % (38.7-80.0); PLATELET COUNT 134 x10e3/uL (140-360); RED BLOOD COUNT 2.83 x10e6/uL (3.6-5.1); RED CELL DISTRIBUTION WIDTH 16.6 % (11.7-14.4)
[2018-08-29] VITALS (7 sets, daily range): BP systolic 82–154; BP diastolic 60–87
[2018-08-29] MEDS: METOPROLOL TARTRATE 25 MG TAB PO SCH ×3 (00:02→21:31)
[2018-08-29] MEDS: MORPHINE SULFATE INJ 4 MG/ML INJ 1ML IV PRN ×4 (00:13→21:32)
[2018-08-29 07:01] LABS: BASOPHILS # (AUTO) 0.1 (0.0-0.1); BASOPHILS % 0.8 % (0.0-1.0); EOSINOPHILS # (AUTO) 0.1 (0.0-0.4); EOSINOPHILS % 1.1 % (0.0-6.0); LYMPHOCYTES # (AUTO) 2.1 (1.0-3.2); LYMPHOCYTES % 33.7 % (18.0-39.1); MEAN CORPUSCULAR HEMOGLOBIN 30.1 pg (28-32); MEAN CORPUSCULAR HGB CONC 30.8 g/dL (31-35); MEAN CORPUSCULAR VOLUME 97.6 fL (81-99); MONOCYTES # (AUTO) 0.4 (0.2-0.8); MONOCYTES % 6.3 % (4.4-11.3); NEUTROPHILS # (AUTO) 3.7 (2.1-6.9); NEUTROPHILS % 57.8 % (38.7-80.0); PLATELET COUNT 171 x10e3/uL (140-360); RED BLOOD COUNT 2.46 x10e6/uL (3.6-5.1); RED CELL DISTRIBUTION WIDTH 16.6 % (11.7-14.4)
[2018-08-29 07:07] LABS: ANION GAP 17.9 mmol/L (8-16); CREATININE, SERUM 7.07 mg/dL (0.57-1.11); MAGNESIUM 1.4 MG/DL (1.3-2.1); PHOSPHORUS 5.3 MG/DL (2.3-4.7)
[2018-08-29 07:18] LABS: POTASSIUM 5.9 mmol/L (3.5-5.1)
[2018-08-29 07:20] LABS: HEMOGLOBIN 7.4 g/dL (12.0-16.0)
--- NOTE | 2018-08-29 07:27 | NUR ---
Rcvd patient in report this am. Patient is asleep in bed at this time. No s/s of distress noted. Lab called and reported a low HGB. Will call
--- NOTE | 2018-08-29 07:39 | NUR ---
Call placed to Dr. Victor regarding abnormal labs.
--- NOTE | 2018-08-29 08:04 | NUR ---
Telephone consent obtained per Kannan beltrán and 2 staff members.
[2018-08-29] MEDS ORDERED: SODIUM BICARBONATE 8.4% INJ 50 ML SYR IV ONE (08:10)
[2018-08-29] MEDS ORDERED: SODIUM CHLORIDE 0.9% 250ML 250 ML IV ONE (08:15)
--- NOTE | 2018-08-29 08:15 | NUR ---
PT notes faxed to [facility].
[2018-08-29] MEDS: SODIUM BICARBONATE 650 MG TAB PO SCH ×2 (09:10→17:33)
--- NOTE | 2018-08-29 09:21 | Progress Note ---
DATE: August 29, 2018 RENAL PROGRESS NOTE SUBJECTIVE: Followed for end-stage renal disease. Tolerating dialysis Tuesday, , Tuesday. Dialysis will be done today. The patient had her tunneled dialysis catheter replaced yesterday. Did have bleeding around her exit site. The patient will likely require packed red blood cell transfusion at her dialysis today. No nausea. No vomiting. No shortness of breath. OBJECTIVE VITAL SIGNS: Have been noted and are stable. Blood pressure is 125/81. Pulse 107. LUNGS: Clear to auscultation bilaterally. CARDIOVASCULAR: S1 and S2, no rub. ABDOMEN: Soft, nontender. EXTREMITIES: No edema. LABS: Hemoglobin 7.4, hematocrit 24. Potassium is up at 5.9. Sodium 132, BUN 42, creatinine 7.07. IMPRESSION AND PLAN 1. End-stage renal disease. Will do dialysis today and will ultrafilter fluid as well. 2. Hypertension. Blood pressure is normal now. Continue low-dose metoprolol. 3. Hyperkalemia. Will treat with 1 amp of sodium bicarbonate IV push. Continue oral sodium bicarbonate. Will do dialysis today as well. 4. Anemia of chronic disease on Epogen. Will also transfuse 2 units of PRBCs with dialysis today. Job#: [id number]
[2018-08-29] MEDS: MYCOPHENOLATE MOFETIL 250 MG CAP PO SCH ×2 (09:26→21:31)
[2018-08-29] MEDS: EPOETIN ALFA 10000 UNIT/ML VIAL SC SCH (09:26)
[2018-08-29] MEDS: TACROLIMUS 1 MG CAP PO SCH (09:26)
[2018-08-29] MEDS: LEVETIRACETAM 500 MG TAB PO SCH ×2 (09:37→21:31)
[2018-08-29] MEDS ORDERED: SODIUM CHLORIDE 0.9% 1000ML 2,000 ML IV PRN (10:45)
[2018-08-29] MEDS ORDERED: ALBUMIN 25% 12.5GM 50ML 100 ML IV ONE (11:53)
[2018-08-29] MEDS ORDERED: ALBUMIN 25% 12.5GM 0.25 GM/ML BTL IV PRN (12:00)
[2018-08-29] MEDS: ONDANSETRON HCL INJ 2MG/ML 2ML 2 MG/ML VIAL IV PRN (12:42)
--- NOTE | 2018-08-29 14:08 | NUR ---
Spoke with Kassi with admissions at [place]. Still pending insurance authorization
--- NOTE | 2018-08-29 15:42 | NUR ---
Dialysis completed at this time and patient tolerated well. Removed 500ml during procedure. Patient received 2 units of blood and tolerated procedure well
--- NOTE | 2018-08-29 16:09 | NUR ---
[place] barrier patch applied to sacral area. No red areas but bony prominences noted
[2018-08-30] VITALS (7 sets, daily range): BP systolic 145–179; BP diastolic 84–102
[2018-08-30] MEDS ORDERED: METHYLPREDNISOLONE SOD SUCC 40 MG/ML VIAL 1ML IV ONE (06:00)
[2018-08-30 06:30] LABS: BASOPHILS # (AUTO) 0.1 (0.0-0.1); EOSINOPHILS # (AUTO) 0.1 (0.0-0.4); EOSINOPHILS % 2.8 % (0.0-6.0); HEMATOCRIT 28.3 % (34.2-44.1); HEMOGLOBIN 9.4 g/dL (12.0-16.0); LYMPHOCYTES # (AUTO) 1.8 (1.0-3.2); LYMPHOCYTES % 36.1 % (18.0-39.1); MEAN CORPUSCULAR HGB CONC 33.2 g/dL (31-35); MEAN CORPUSCULAR VOLUME 90.4 fL (81-99); MONOCYTES # (AUTO) 0.6 (0.2-0.8); MONOCYTES % 11.4 % (4.4-11.3); NEUTROPHILS # (AUTO) 2.4 (2.1-6.9); NEUTROPHILS % 48.5 % (38.7-80.0); PLATELET COUNT 113 x10e3/uL (140-360); RED BLOOD COUNT 3.13 x10e6/uL (3.6-5.1); RED CELL DISTRIBUTION WIDTH 17.1 % (11.7-14.4)
[2018-08-30] MEDS: MORPHINE SULFATE INJ 4 MG/ML INJ 1ML IV PRN (06:34)
[2018-08-30 06:59] LABS: ALBUMIN 2.6 g/dL (3.5-5.0); ALBUMIN/GLOBULIN RATIO 1.1 (0.8-2.0); ALKALINE PHOSPHATASE 55 IU/L (40-150); ANION GAP 14.4 mmol/L (8-16); BLOOD UREA NITROGEN 11 mg/dL (7-26); BUN/CREATININE RATIO 3 (6-25); CALCIUM 7.9 mg/dL (8.4-10.2); CARBON DIOXIDE 30 mmol/L (22-29); CHLORIDE 97 mmol/L (98-107); EST GLOMERULAR FILTRATION RATE 15 ML/MIN (60-); GLUCOSE 81 mg/dL (74-118); POTASSIUM 3.4 mmol/L (3.5-5.1); SODIUM 138 mmol/L (136-145)
[2018-08-30 07:13] LABS: ALANINE AMINOTRANSFERASE < 6 IU/L (0-55)
[2018-08-30] MEDS: LEVETIRACETAM 500 MG TAB PO SCH ×2 (10:41→20:40)
[2018-08-30] MEDS: SODIUM BICARBONATE 650 MG TAB PO SCH ×2 (10:41→18:20)
[2018-08-30] MEDS: TACROLIMUS 1 MG CAP PO SCH (10:41)
[2018-08-30] MEDS: MYCOPHENOLATE MOFETIL 250 MG CAP PO SCH ×2 (10:41→20:40)
[2018-08-30] MEDS: METOPROLOL TARTRATE 25 MG TAB PO SCH ×2 (10:41→20:40)
--- NOTE | 2018-08-30 10:41 | NUR ---
assessment complete no distress noted, updated on poc voiced understanding, r ac 22 g no ss of infiltration noted, l fistula no bruit ascultated. or thrill palpated, l subclavian hd cath intact, heel protectors in place, call light in reach will continue to monitor
[2018-08-30] MEDS: LISINOPRIL 10 MG TAB PO SCH (18:15)
--- NOTE | 2018-08-30 19:13 | NUR ---
PATIENT IS IN BED. EASILY AROUSED. NO COMPLAINT OF PAIN
--- NOTE | 2018-08-30 19:36 | Progress Note ---
DATE: August 30, 2018 RENAL PROGRESS NOTE SUBJECTIVE: Followed for end-stage renal disease, tolerating dialysis, Tuesday, , Tuesday. Next dialysis will be tomorrow. Patient's blood pressures have started to go up again, last blood pressure was in the 150 to 170s/90s. OBJECTIVE: VITAL SIGNS: Have been noted. Blood pressure 179/95, 93 pulse, afebrile. LUNGS: Clear to auscultation bilaterally. CARDIOVASCULAR: S1 and S2. No rub. ABDOMEN: Soft, nontender. EXTREMITIES: No edema. LABS: Hemoglobin 9.4. Chemistries: Potassium 3.4, BUN is 11, creatinine 3.2, phosphorus was 5.3. IMPRESSION AND PLAN: 1. End-stage renal disease. Continue dialysis, Tuesday, , Tuesday. 2. Hypertension. Will add back lisinopril 10 mg twice a day and monitor blood pressure. 3. Mild hypokalemia. Will not replace since the potassium had gone up previously. 4. Anemia of chronic disease, stable. Hemoglobin better. Epogen continued. Thank you once again. Job#: [id number]
--- NOTE | 2018-08-30 20:15 | NUR ---
DBP ELEVATED, PT HAS DUE ANTIHYPERTENSIVE MEDIATION. ASYMPTOMATIC.
[2018-08-31] VITALS (10 sets, daily range): BP systolic 133–164; BP diastolic 82–104
--- NOTE | 2018-08-31 01:27 | NUR ---
DBP ELEVATED, PT HAS DUE ANTIHYPERTENSIVE MEDICATION. ASYMPTOMATIC.
--- NOTE | 2018-08-31 01:28 | NUR ---
DISREGARD PREVIOUS ENTRY WRONG TIME AND DATE.
--- NOTE | 2018-08-31 01:30 | NUR ---
DBP STILL HIGH, BP RECHECKED 132/96 [facility].
[2018-08-31 06:12] LABS: BASOPHILS % 0.7 % (0.0-1.0); EOSINOPHILS # (AUTO) 0.1 (0.0-0.4); EOSINOPHILS % 1.9 % (0.0-6.0); HEMATOCRIT 29.1 % (34.2-44.1); HEMOGLOBIN 9.3 g/dL (12.0-16.0); LYMPHOCYTES # (AUTO) 1.7 (1.0-3.2); MEAN CORPUSCULAR HEMOGLOBIN 29.1 pg (28-32); MEAN CORPUSCULAR VOLUME 90.9 fL (81-99); MONOCYTES # (AUTO) 0.4 (0.2-0.8); NEUTROPHILS % 46.2 % (38.7-80.0); PLATELET COUNT 123 x10e3/uL (140-360); RED CELL DISTRIBUTION WIDTH 16.6 % (11.7-14.4)
[2018-08-31 06:36] LABS: ANION GAP 15.7 mmol/L (8-16); CALCIUM 8.1 mg/dL (8.4-10.2); CREATININE, SERUM 4.52 mg/dL (0.57-1.11); MAGNESIUM 1.7 MG/DL (1.3-2.1); PHOSPHORUS 5.3 MG/DL (2.3-4.7); POTASSIUM 3.7 mmol/L (3.5-5.1)
--- NOTE | 2018-08-31 07:04 | NUR ---
REPORT GIVEN TO ONCOMING NURSE.
[2018-08-31] MEDS: LISINOPRIL 10 MG TAB PO SCH ×2 (09:00→17:02)
[2018-08-31] MEDS: LEVETIRACETAM 500 MG TAB PO SCH ×2 (09:00→20:32)
[2018-08-31] MEDS: TACROLIMUS 1 MG CAP PO SCH (09:00)
[2018-08-31] MEDS: MYCOPHENOLATE MOFETIL 250 MG CAP PO SCH ×2 (09:00→20:32)
[2018-08-31] MEDS: SODIUM BICARBONATE 650 MG TAB PO SCH ×2 (09:00→17:03)
[2018-08-31] MEDS: METOPROLOL TARTRATE 25 MG TAB PO SCH ×2 (09:00→17:53)
--- NOTE | 2018-08-31 09:43 | Progress Note ---
DATE: August 31, 2018 RENAL PROGRESS NOTE SUBJECTIVE: Followed for end-stage renal disease. Tolerating dialysis on Tuesday, and Tuesday. Dialysis due today. Patient's blood pressure has improved to 147/87, 84 pulse, 16 respirations. No nausea. No vomiting. No shortness of breath. OBJECTIVE VITAL SIGNS: As outlined above. LUNGS: Clear to auscultation bilaterally. CARDIOVASCULAR: S1 and S2. No rub. ABDOMEN: Soft and nontender. EXTREMITIES: No edema. LABS: Today, H and H 9.3 and 29.1. Chemistry: Sodium 137, potassium 3.7, BUN is 22, and creatinine is 4.5. IMPRESSION AND PLAN 1. End-stage renal disease: Will continue to provide dialysis on Tuesday, and Tuesday per schedule. 2. Hypertension: Blood pressure is better controlled with the lisinopril and metoprolol. 3. Anemia of chronic disease: Stable. Will continue Epogen. Patient was transfused packed red blood cells as well. Job#: [id number] MA
--- NOTE | 2018-08-31 10:25 | NUR ---
assessment complete no distress noted, denies pain at this time, right fa 22 g no ss of infiltration noted, updated on poc voiced understanding, call light in reach will continue to monitor
[2018-08-31] MEDS: ONDANSETRON HCL INJ 2MG/ML 2ML 2 MG/ML VIAL IV PRN (11:12)
[2018-08-31] MEDS: MORPHINE SULFATE INJ 4 MG/ML INJ 1ML IV PRN ×2 (11:12→15:31)
[2018-08-31] MEDS ORDERED: HEPARIN SOD (PORCINE) 1000 UNIT/ML SDV IV PRN (11:45)
[2018-08-31] MEDS ORDERED: SODIUM CHLORIDE 0.9% 1000ML 2,000 ML IV PRN (11:45)
--- NOTE | 2018-08-31 13:00 | NUR ---
Pt accepted to [facility] [address] [place] [id number] Joaquin to attend
--- NOTE | 2018-08-31 13:17 | NUR ---
IMM letter delivered and explained to pt. CM explained to pt that she has been approved for [facility]. She verbalized understanding. Signed copy placed in chart. Copy to patient.
--- NOTE | 2018-08-31 14:07 | Diagnostic Imaging Report ---
PROCEDURE: Thoracic venography, venography, exchange of left IJ tunneled hemodialysis catheter with fluoroscopic guidance INDICATION: Poor flows. OPERATORS: Eugenio Cain MD RADIATION EXPOSURE: Fluoroscopy Time: 18.9 minutes Dose area product (DAP): 139.5 cGycm2 ESTIMATED BLOOD LOSS: 150-200 cc CONSENT: The patient was informed of the nature of the proposed procedure. The purposes, alternatives, risks, and benefits were explained and discussed. All questions were answered and written consent was obtained. ANESTHESIA: Moderate sedation, continuous hemodynamic monitoring was performed by nursing. MEDICATIONS: 15 cc of 1% subcutaneous lidocaine Fentanyl and Versed per nursing administration records TECHNIQUE/FINDINGS: The patient was brought to the angiography suite, and the left neck and upper chest were prepped and draped in standard sterile fashion. All elements of maximal sterile barrier technique were followed including cap and mask, sterile gown, sterile gloves, large sterile sheet, hand hygiene and 2% chlorhexidine for cutaneous antisepsis. Pre-procedure time-out confirmed the patient identity and the procedure to be performed. Evaluation of the existing catheter demonstrated that one of the lumens could not aspirate or flush. The additional lumen demonstrated slow aspiration; venography through this lumen demonstrated patency of the catheter without definite fibrin sheath. Subsequently, 1% subcutaneous lidocaine was administered along the catheter tract and lower neck. Then, two stiff glide wires were advanced through the existing catheter. While the existing catheter was 16 [place], no larger sheath than 11 [place] was available in stock. Therefore, the existing hemodialysis catheter was removed and the 11 [place] vascular sheath was placed through the existing tunnel into the distal IJ vein. Given the size difference between the hemodialysis catheter and the sheath, persistent compression was held throughout the course of the procedure, although slow oozing was present and resulted in 150-200 cc of blood loss. Venography through the left IJ sheath was performed. This demonstrated multiple collaterals in the left upper chest near the IJ and subclavian vein confluence. The left IJ vein appeared diminutive, and was likely severely stenosed. Note is made of a left axillary vein stent, brachiocephalic vein stents, and a right brachiocephalic vein stent. There is moderate to severe stenoses within the inferior brachiocephalic vein stent and mid to distal superior brachiocephalic vein stent. There is occlusion of the superior brachiocephalic vein stent proximally. There is mild stenosis within the SVC. Subsequently sequential balloon angioplasty was performed of the left brachiocephalic vein and SVC with a 5 mm and 10 mm balloon with repeat venography demonstrating improved stenoses and decreased left upper thoracic collaterals. At this point, the patient moved and tilted and wire access was nearly lost. Wire access into the left IJ vein however was maintained. With the assistance of a glidewire and Kumpe catheter, access was regained into the central veins and secured into the IVC. The glidewire was exchanged for an Advantage glidewire. A 11 Fr sheath was replaced into the left IJ vein. A chaitanya stiff glidewire was advanced into the SVC. Subsequently, the sheath was removed, and attempt was made to advance a new 16 [place] tunneled hemodialysis catheter through the existing tunnel, however we could not track this into the left internal jugular vein. We then attempted to place a 20 Fr peel away sheath into the left internal jugular vein through the existing tunnel, however due to resistance could not be advanced. An ultrasound of the right internal jugular vein was performed to evaluate for potential additional access points. The right internal jugular vein was noted to be occluded with multiple collaterals. Subsequently, the left internal jugular vein was venoplastied with a 4 mm balloon. Subsequently, a new 16 Fr tunneled hemodialysis catheter was able to be advanced through the tunnel beyond the left IJ stenosis and with a final position of tip at the cavoatrial junction. No evidence of kinking or pneumothorax. Both lumens were aspirated, check flushed, and terminally flushed with 2 cc each of heparin solution (1000 units/cc of heparin). The catheter was secured using 3-0 Ethilon pursestring suture at the catheter exit site and also 3-0 Ethilon sutures at the catheter hub. The venotomy site was closed with a single subcutaneous Vicryl suture, Dermabond, and steri-strips. Sterile dressings were applied. The patient tolerated the procedure well without immediate complication and was transported back to the floor in stable condition. COMPLICATIONS: None IMPRESSION: Central venography demonstrating left internal jugular, brachiocephalic vein, and SVC stenoses. Venoplasty performed with improved stenoses and decreased thoracic collaterals. Successful fluoroscopic guided exchange of left IJ tunneled hemodialysis catheter. Signed by: Dr. Eugenio Cain MD on 08/30/2018 8:02 AM
[2018-08-31] MEDS: HYDRALAZINE HCL 20 MG/ML VIAL IV PRN (17:22)
[2018-08-31] MEDS: EPOETIN ALFA 10000 UNIT/ML VIAL SC SCH (17:22)
--- NOTE | 2018-08-31 18:50 | NUR ---
BP 155/93, SPOKE WITH DR OH RE: BP AND MEDS GIVEN, OK TO SEND TO [facility]
--- NOTE | 2018-08-31 19:18 | NUR ---
PATIENT WAS DISCHARGED VIA STRETCHER WITH EMS. PATIENT IS ALERT AND ORIENTED TO PLACE, PERSON AND SITUATION. NO COMPLAINT
--- NOTE | 2018-08-31 19:55 | NUR ---
SPOKE WITH DR SONG RE: PT TRANSFERRING TO [facility]
== END 2018-08-31 21:15 | DRG 291 ==
LOC: ER 15:40 → ERHOLD 19:22 → MED/SURG 21:13
PROVIDERS: ADMIT Internal Medicine; ATTEND Internal Medicine
PROC: 5A1D70Z Performance of Urinary Filtration, Intermittent, Less than 6 Hours Per Day (ICD-10-PCS; principal; 2018-08-26)
PROC: 02PY33Z Removal of Infusion Device from Great Vessel, Percutaneous Approach (ICD-10-PCS; 2018-08-28)
PROC: 02HV33Z Insertion of Infusion Device into Superior Vena Cava, Percutaneous Approach (ICD-10-PCS; 2018-08-28)
PROC: B5181ZA Fluoroscopy of Superior Vena Cava using Low Osmolar Contrast, Guidance (ICD-10-PCS; 2018-08-28)
PROC: 5A1D70Z Performance of Urinary Filtration, Intermittent, Less than 6 Hours Per Day (ICD-10-PCS; 2018-08-29)
PROC: 30233N1 Transfusion of Nonautologous Red Blood Cells into Peripheral Vein, Percutaneous Approach (ICD-10-PCS; 2018-08-29)
PROC: 5A1D70Z Performance of Urinary Filtration, Intermittent, Less than 6 Hours Per Day (ICD-10-PCS; 2018-08-31)
DX: I13.2 Hypertensive heart and chronic kidney disease with heart failure and with stage 5 chronic kidney disease, or end stage renal disease (principal); I50.23 Acute on chronic systolic (congestive) heart failure; N18.6 End stage renal disease; E43 Unspecified severe protein-calorie malnutrition; Z68.1 Body mass index [BMI] 19.9 or less, adult; G40.919 Epilepsy, unspecified, intractable, without status epilepticus; Z94.1 Heart transplant status; T82.41XA Breakdown (mechanical) of vascular dialysis catheter, initial encounter; I13.0 Hypertensive heart and chronic kidney disease with heart failure and stage 1 through stage 4 chronic kidney disease, or unspecified chronic kidney disease; E11.22 Type 2 diabetes mellitus with diabetic chronic kidney disease; Z88.5 Allergy status to narcotic agent; Z99.2 Dependence on renal dialysis; Z88.0 Allergy status to penicillin; Z83.3 Family history of diabetes mellitus; Z82.49 Family history of ischemic heart disease and other diseases of the circulatory system; E03.9 Hypothyroidism, unspecified; E78.5 Hyperlipidemia, unspecified; D63.8 Anemia in other chronic diseases classified elsewhere; I95.9 Hypotension, unspecified; E87.5 Hyperkalemia; M60.9 Myositis, unspecified; Z79.82 Long term (current) use of aspirin; Z79.4 Long term (current) use of insulin
CPT/HCPCS: 36415; 36581; 37248; 71045; 74470; 80048; 80053; 82550; 82553; 83735; 83880; 84100; 84484; 85025; 85610; 85730; 86704; 86705; 86707; 86850; 86900; 86920; 87340; 90962; 93005; 97139; 99284; C1725; C1769; C1894; J0360; J1644; J2001; J2250; J2270; J2405; J2920; J2997; J7030; J7040; J7050; J7507; P9016; Q4081; Q9967